=== PATIENT | male | born 1950 | race Caucasian/White ===

== ENCOUNTER 2016-04-22 08:16 | Inpatient (IN) | payer OTHER, MEDICARE ==
[2016-04-22] VITALS (15 sets, daily range): BP systolic 116–167; BP diastolic 76–92; PULSE 83–94; RESP 15–20; TEMP 97.6–98.4; O2SAT 94–96
[~2016-04-22] VITALS: Ht 167.6 cm; Wt 89.0 kg
[~2016-04-22 08:16] MED LIST: ACET300T2 PO; ASPI1TAB69 PO; ATOR40TA16 PO; CARV6.25 PO; CEPH-460 PO; D31000TA PO; FLUT1SPR5 EACH NARE; FURO1TAB62 PO; INSU1INJ14 SQ; IPRAAER INH; LISI2.5T3 PO; NITR1SUB3 SL; ZADITOR EACH EYE; ZOLO50TA PO
--- NOTE | 2016-04-22 08:28 | PD ---
HPI Chief Complaint: Chest Pain Time Seen by Provider: 08:20 Travel History International Travel<30 days: No Contact w/Intl Traveler<30days: No Traveled to known affect area: No History of Present Illness HPI 65-year-old male with history of CHF, cardiomyopathy, EF of 20% on all medical treatment, CAD, CABG, recent removal of defibrillator with placement of a biventricular pacer defibrillator last month by Dr. Davenport, presents for evaluation of chest pain, nausea, vomiting, and diarrhea. Patient reports that vomiting and diarrhea started yesterday. Emesis is clear. Diarrhea is watery/ brown. Both are nonbloody. Apparently he was seen by Dr. Davenport yesterday who told him that his pacemaker had fired about 10 days prior and advised that he present to the emergency department at that time. The patient decided to wait until this morning to come in to the emergency department. On the way here he began to experience substernal chest discomfort which she describes as pressure. Pain is 5 out of 10, constant. No dyspnea. PFSH Past Medical History Hx Anticoagulant Therapy: Yes Arthritis: No Asthma: Yes Autoimmune Disease: No Blood Disorders: No Anxiety: Yes Depression: Yes Heart Rhythm Problems: Yes Cancer: No Cardiac Catheterization: Yes Cardiovascular Problems: Yes (stents, CABGx3, ICD) High Cholesterol: Yes Chemotherapy: No Chest Pain: Yes Congestive Heart Failure: Yes Cirrhosis: Yes COPD: Yes Cerebrovascular Accident: No Diabetes: Yes (type II) Diminished Hearing: No Endocrine: Yes Gastrointestinal Disorders: Yes (ASCITES) GERD: No Glaucoma: No Genitourinary: No Hepatitis: No Hiatal Hernia: No Hypertension: Yes Immune Disorder: No Implanted Vascular Access Dvce: Yes Kidney Stones: No Musculoskeletal: No Neurologic: Yes (tremors) Psychiatric: No Reproductive: No Respiratory: Yes Integumentary: No Migraines: No Radiation Therapy: No Renal Failure: No Seizures: No Sickle Cell Disease: No Sleep Apnea: Yes Thyroid Disease: No Ulcer: No Past Surgical History Abdominal Surgery: Yes (hernia repair) AICD: Yes Arteriovenous Shunt: No Body Medical Devices: STENTS TAYA LEGS [employer] HEART, DEFIBRILLATOR Cardiac Surgery: Yes (CABG x3) Coronary Artery Bypass Graft: Yes (TRIPLE) Coronary Stent: Yes (X1) Ear Surgery: No Endocrine Surgery: No Eye Surgery: No Genitourinary Surgery: No Gynecologic Surgery: No Insulin Pump: No Joint Replacement: No Oral Surgery: No Pacemaker: Yes Thoracic Surgery: Yes (CABG x3) Other Surgery: Yes (CABG, TAYA L.E. STENTS, AICD) Social History Alcohol Use: Yes Tobacco Use: No Substance Use: No Allergies-Medications (Allergen,Severity, Reaction): Coded Allergies: No Known Allergies (Unverified , 04/22/16) Reported Meds & Prescriptions Reported Meds & Active Scripts Active Keflex (Cephalexin) 500 Mg Cap 500 Mg PO TID Acetaminophen-Codeine 300-30 mg Tab 2 Tab PO Q4H PRN Lasix (Furosemide) 20 Mg Tab 20 Mg PO DAILY Coreg (Carvedilol) 6.25 Mg Tab 6.25 Mg PO Q12HR 30 Days Reported [Zaditor] 0.025 Drop EACH EYE DAILY Atorvastatin (Atorvastatin Calcium) 40 Mg Tab 40 Mg PO DAILY D3 (Cholecalciferol) 1,000 Unit Tab 1,000 Units PO DAILY Flonase Allergy Relief Nasal [place] (Fluticasone Nasal [place]) 50 Mcg/Act [place] 1 [place] EACH NARE DAILY Lisinopril 2.5 Mg Tab 2.5 Mg PO DAILY Zoloft (Sertraline HCl) 50 Mg Tab 50 Mg PO DAILY Nitroglycerin SL (Nitroglycerin) 0.4 Mg Subl 0.4 Mg SL DIRECTED PRN ONE TABLET UNDER THE TONGUE NEEDED FOR CHEST PAIN, MAY REPEAT EVERY FIVE MINUTES FOR A TOTAL OF 3 DOSES OR CALL 911 IF NO RELIEF Aspirin 81 Mg Tabdr 81 Mg PO DAILY Combivent Respimat Inh (Ipratropium-Albuterol Inh) 20-100 [facility]/Act Aero 2 Puff INH BID Tresiba Flextouch Pen Inj (Insulin Degludec Inj) 300 unit/3 ML Pen 80 Units SQ DAILY Review of Systems Except as stated in HPI: all other systems reviewed are Neg Physical Exam Narrative GENERAL: Pleasant, well-developed, well-nourished, comfortable, no acute distress. SKIN: Warm and dry. Midline vertical/central anterior chest wall surgical incision that is well-healed. There are 2 horizontal incisions in the left upper chest that are well healed, no signs of infection. HEAD: Atraumatic. Normocephalic. EYES: Pupils equal and round. No scleral icterus. No injection or drainage. ENT: Mucous membranes pink and moist. NECK: Trachea midline. No JVD. CARDIOVASCULAR: Regular rate and rhythm. No murmur appreciated. RESPIRATORY: No accessory muscle use. Clear to auscultation. Breath sounds equal bilaterally. GASTROINTESTINAL: Abdomen soft, non-tender, nondistended. MUSCULOSKELETAL: No obvious deformities. No clubbing. No cyanosis. No edema. NEUROLOGICAL: Awake and alert. No obvious cranial nerve deficits. Motor grossly within normal limits. Normal speech. PSYCHIATRIC: Appropriate mood and affect; insight and judgment normal. Data Data Last Documented VS Vital Signs Date Time Temp Pulse Resp B/P Pulse Ox O2 Delivery O2 Flow Rate FiO2 04/22/16 08:29 94 Nasal Cannula 2 04/22/16 08:17 98.4 93 19 167/81 Orders Electrocardiogram (04/22/16 ) Complete Blood Count With Diff (04/22/16 08:25) Comprehensive Metabolic Panel (04/22/16 08:25) B-Type Natriuretic Peptide (04/22/16 08:25) Act Partial Throm Time (Ptt) (04/22/16 08:25) Prothrombin Time / Inr (Pt) (04/22/16 08:25) Ckmb (Isoenzyme) Profile (04/22/16 08:25) Troponin I (04/22/16 08:25) Influenzae A/B Antigen (04/22/16 08:25) Iv Access Insert/Monitor (04/22/16 08:25) Ecg Monitoring (04/22/16 08:25) Oximetry (04/22/16 08:25) Oxygen Administration (04/22/16 08:25) Chest, Single Ap (04/22/16 08:25) Sodium Chloride 0.9% Flush (Ns Flush) (04/22/16 08:30) Ondansetron Inj (Zofran Inj) (04/22/16 08:30) Magnesium (Mg) (04/22/16 08:28) Aspirin Chew (Aspirin Chew) (04/22/16 08:30) CKMB (04/22/16 08:45) CKMB% (04/22/16 08:45) Sodium Chlor 0.9% 1000 Ml Inj (Ns 1000 M (04/22/16 09:56) Labs Laboratory Tests Test 04/22/16 08:45 White Blood Count 14.3 TH/MM3 Red Blood Count 4.99 MIL/MM3 Hemoglobin 15.7 GM/DL Hematocrit 47.2 % Mean Corpuscular Volume 94.7 FL Mean Corpuscular Hemoglobin 31.4 PG Mean Corpuscular Hemoglobin 33.2 % Concent Red Cell Distribution Width 14.3 % Platelet Count 185 TH/MM3 Mean Platelet Volume 9.0 FL Neutrophils (%) (Auto) 78.2 % Lymphocytes (%) (Auto) 8.1 % Monocytes (%) (Auto) 11.4 % Eosinophils (%) (Auto) 0.8 % Basophils (%) (Auto) 1.5 % Neutrophils # (Auto) 11.2 TH/MM3 Lymphocytes # (Auto) 1.2 TH/MM3 Monocytes # (Auto) 1.6 TH/MM3 Eosinophils # (Auto) 0.1 TH/MM3 Basophils # (Auto) 0.2 TH/MM3 CBC Comment DIFF FINAL Differential Comment Prothrombin Time 12.3 SEC Prothromb Time International 1.1 RATIO Ratio Activated Partial 29.5 SEC Thromboplast Time Sodium Level 120 MEQ/L Potassium Level 5.5 MEQ/L Chloride Level 84 MEQ/L Carbon Dioxide Level 21.7 MEQ/L Anion Gap 14 MEQ/L Blood Urea Nitrogen 29 MG/DL Creatinine 1.57 MG/DL Estimat Glomerular Filtration 45 ML/MIN Rate Random Glucose 213 MG/DL Calcium Level 8.6 MG/DL Magnesium Level 1.8 MG/DL Total Bilirubin 1.4 MG/DL Aspartate Amino Transf 55 U/L (AST/SGOT) Alanine Aminotransferase 70 U/L (ALT/SGPT) Alkaline Phosphatase 77 U/L Total Creatine Kinase 169 U/L Creatine Kinase MB 4.3 NG/ML Troponin I 0.03 NG/ML B-Type Natriuretic Peptide 116 PG/ML Total Protein 8.5 GM/DL Albumin 3.7 GM/DL [facility] Medical Decision Making Medical Screen Exam Complete: Yes Emergency Medical Condition: Yes Medical Record Reviewed: Yes Interpretation(s) EKG: Ventricular paced at a rate of 91. Differential Diagnosis ACS, pneumothorax, pericarditis, PE, pneumonia, gastroenteritis, dehydration, electrolyte abnormality Narrative Course Vital signs show heart rate 94, blood pressure 167/81, pulse ox 94% on room air , oral temp of 98.4F. CBC shows WBC 14.3, hemoglobin 15.7, hematocrit 47.2, platelets 185, neutrophils 78%. CMP shows sodium 120, chloride 84, BUN 29, creatinine 1.57 Troponin is 0.03. BNP is 116. Influenza is negative. Chest x-ray shows no acute disease. No significant change has occurred. Patient was made aware of all findings. He is resting comfortably. He'll be admitted for further treatment and evaluation of chest pain, hyponatremia. Case discussed with Hepas physician Dr. Baker. The patient will be admitted to his service to the [facility]. Diagnosis Primary Impression: Chest pain Qualified Code: R07.9 - Chest pain, unspecified type Additional Impressions: Hyponatremia Gastroenteritis Vinicio Snider MD Apr 22, 2016 08:28
[2016-04-22] MEDS ORDERED: ASPIRIN 81 MG CHEW TAB PO ONE (08:30)
[2016-04-22] MEDS ORDERED: SODIUM CHLORIDE 0.9% FLUSH 5 ML FLUSH IVF PRN (08:30)
[2016-04-22] MEDS ORDERED: ONDANSETRON HCL 4 MG/2 ML VIAL IV PUSH ONE (08:30)
[2016-04-22 09:03] LABS: AUTOMATED NEUTROPHIL # 11.2 TH/MM3 (1.8-7.7); BASOPHIL # 0.2 TH/MM3 (0-0.2); BASOPHIL % 1.5 % (0.0-2.0); EOSINOPHIL # 0.1 TH/MM3 (0-0.4); EOSINOPHIL % 0.8 % (0.0-4.0); HEMATOCRIT 47.2 % (39.0-51.0); HEMO FLAGS DIFF FINAL; LYMPH % 8.1 % (9.0-44.0); LYMPHOCYTE # 1.2 TH/MM3 (1.0-4.8); MEAN CELL VOLUME 94.7 FL (80.0-100.0); MEAN CORPUSCULAR HEMOGLOBIN 31.4 PG (27.0-34.0); MEAN CORPUSCULAR HGB CONC 33.2 % (32.0-36.0); MONO % 11.4 % (0.0-8.0); NEUT % 78.2 % (16.0-70.0); PLATELET COUNT 185 TH/MM3 (150-450); RED BLOOD COUNT 4.99 MIL/MM3 (4.50-5.90); RED CELL DISTRIBUTION WIDTH 14.3 % (11.6-17.2); WHITE BLOOD COUNT 14.3 TH/MM3 (4.0-11.0)
[2016-04-22 09:13] LABS: APTT (PATIENT) 29.5 SEC (24.3-30.1); INTERNATIONAL NORMALIZED RATIO 1.1 RATIO; PROTHROMBIN TIME - PATIENT 12.3 SEC (9.8-11.6)
--- NOTE | 2016-04-22 09:19 | RADRPT ---
EXAM DATE/TIME: 04/22/2016 08:59 [facility] COMPARISON: CHEST SINGLE AP, March 26, 2016, 11:06. INDICATIONS : Chest pain. MEDICAL HISTORY : Hypertension. Diabetes mellitus type II. Chronic obstructive pulmonary disease. Congestive heart failure SURGICAL HISTORY : Pacemaker. CABG. ENCOUNTER: Initial ACUITY: 2 days PAIN SCORE: 6/10 LOCATION: Left upper chest FINDINGS: A single view of the chest demonstrates the lungs to be symmetrically aerated without evidence of mas s, infiltrate or effusion. The cardiomediastinal contours again reveal borderline cardiomegaly with evidence of prior median sternotomy cardiac surgery and there is a pacemaker AICD device overlying th e left hemithorax.. Osseous structures are intact. CONCLUSION: No acute disease. No significant change has occurred. Keegan Hills MD on April 22, 2016 at 9:16 Board Certified Radiologist. This report was verified electronically.
[2016-04-22 09:49] LABS: ALKALINE PHOSPHATASE 77 U/L (45-117); ALT (GPT) 70 U/L (12-78); ANION GAP 14 MEQ/L (5-15); AST (GOT) 55 U/L (15-37); BICARBONATE 21.7 MEQ/L (21.0-32.0); BLOOD UREA NITROGEN 29 MG/DL (7-18); CHLORIDE 84 MEQ/L (98-107); CREATINE KINASE 169 U/L (39-308); GLOMERULAR FILTRATION RATE 45 ML/MIN (>89); POTASSIUM 5.5 MEQ/L (3.5-5.1); TOTAL BILIRUBIN ADULT 1.4 MG/DL (0.2-1.0)
[2016-04-22 09:55] LABS: SODIUM (NA) 120 MEQ/L (136-145)
[2016-04-22] MEDS ORDERED: SODIUM CHLOR 0.9% 1000 ML INJ 1,000 ML IV SCH (09:56)
[2016-04-22 10:11] LABS: CKMB 4.3 NG/ML (0.5-3.6)
[2016-04-22] MEDS ORDERED: GLUCAGON 1 MG/ML VIAL OTHER PRN (11:00)
[2016-04-22] MEDS ORDERED: HEPARIN SODIUM - SQ 10,000 UNITS/ML VIAL SQ SCH (11:00)
[2016-04-22] MEDS ORDERED: SODIUM CHLORIDE 0.9% FLUSH 5 ML FLUSH IV PRN (11:00)
[2016-04-22] MEDS ORDERED: NITROGLYCERIN 0.4 MG SL 25 TABS/BTL SL PRN (11:00)
[2016-04-22] MEDS ORDERED: DEXTROSE 50% IN WATER 50 ML VIAL(D50) IV PUSH PRN (11:00)
[2016-04-22] MEDS ORDERED: hydrALAZINE HCL 20 MG/ML VIAL IV PUSH PRN (11:00)
[2016-04-22] MEDS ORDERED: MORPHINE SULFATE 8 MG/ML INJ IV PUSH PRN (11:00)
[2016-04-22] MEDS ORDERED: cloNIDine HCL 0.1 MG TAB PO PRN (11:00)
--- NOTE | 2016-04-22 11:01 | HHI.HP ---
[facility] Primary Care Physician Venice Mota MD Admission Diagnosis chest pain, hyponatremia, gastroenteritis Diagnoses: Chief Complaint: Nausea vomiting diarrhea Travel History International Travel<30 Days: No Contact w/Intl Traveler <30 Da: No Traveled to Known Affected Are: No History of Present Illness 65 years old male with history of hepatitis CHF EF 20% on medical treatment, history of coronary artery disease and CABG with recent removal of defibrillator replaced with biventricular pacer and defibrillator last month by Dr. Miller, patient came to the ED complaining of 3 days history of worsening nausea vomiting and diarrhea, patient had last night 6 episode of bowel movement which is loose no hematochezia or hematemesis, to me patient denied chest pain short of breath headache fever chills cough or blurry vision. However on the way to the hospital there was a mentioning of some chest discomfort described as a pressure 5 out of 10 constant. Patient was told by Dr. Miller that his defibrillator fired up 10 days ago and he was told to go to the hospital. In ED patient was found to have a sodium of 20, potassium of 5.5 and worsening kidney function was due to dehydration Review of Systems Other All 10 systems reviewed and was positive for what is mentioned in history of present illness otherwise negative Past Family Social History Past Medical History Hernia artery disease status post CABG Anxiety Depression Hyperlipidemia CHF EF 20% Liver cirrhosis COPD Diabetes mellitus type 2 History of ascites Sleep apnea Past Surgical History Stenting bilateral leg Biventricular heart pacer defibrillator CABG 3 Allergies: Coded Allergies: No Known Allergies (Unverified , 04/22/16) Family History Father brother and sister had CHF Social History No tobacco use Drinks couple beers daily alcohol No other significant use Physical Exam Vital Signs Vital Signs Date Time Temp Pulse Resp B/P Pulse Ox O2 Delivery O2 Flow Rate FiO2 04/22/16 10:00 83 16 140/90 95 Nasal Cannula 2 04/22/16 09:00 145/76 95 Nasal Cannula 2 04/22/16 08:29 94 Nasal Cannula 2 04/22/16 08:17 98.4 93 19 167/81 04/22/16 08:17 19 94 Room Air 04/22/16 08:17 98.4 94 19 167/81 94 Room Air Physical Exam GENERAL: This is a well-nourished, well-developed patient, in no apparent distress. SKIN: No rashes, warm and dry HEAD: Atraumatic. Normocephalic. EYES: Pupils equal round and reactive. Extraocular motions intact. No scleral icterus. ENT: Nose without bleeding, or drainage, Airway patent. NECK: Trachea midline. Supple CARDIOVASCULAR: Regular rate and rhythm without murmurs, gallops, or rubs. RESPIRATORY: Fair air entry bilaterally. No wheezes, rales, or rhonchi. GASTROINTESTINAL: Abdomen soft, non-tender, nondistended. Positive bowel sounds MUSCULOSKELETAL: Extremities without clubbing, cyanosis, or edema. Pedal pulses appreciated NEUROLOGICAL: Awake and alert. Moves all extremity. Normal speech.no focal neurological deficit Laboratory Laboratory Tests Test 04/22/16 08:45 White Blood Count 14.3 Red Blood Count 4.99 Hemoglobin 15.7 Hematocrit 47.2 Mean Corpuscular Volume 94.7 Mean Corpuscular Hemoglobin 31.4 Mean Corpuscular Hemoglobin 33.2 Concent Red Cell Distribution Width 14.3 Platelet Count 185 Mean Platelet Volume 9.0 Neutrophils (%) (Auto) 78.2 Lymphocytes (%) (Auto) 8.1 Monocytes (%) (Auto) 11.4 Eosinophils (%) (Auto) 0.8 Basophils (%) (Auto) 1.5 Neutrophils # (Auto) 11.2 Lymphocytes # (Auto) 1.2 Monocytes # (Auto) 1.6 Eosinophils # (Auto) 0.1 Basophils # (Auto) 0.2 CBC Comment DIFF FINAL Differential Comment Prothrombin Time 12.3 Prothromb Time International 1.1 Ratio Activated Partial 29.5 Thromboplast Time Sodium Level 120 Potassium Level 5.5 Chloride Level 84 Carbon Dioxide Level 21.7 Anion Gap 14 Blood Urea Nitrogen 29 Creatinine 1.57 Estimat Glomerular Filtration 45 Rate Random Glucose 213 Calcium Level 8.6 Magnesium Level 1.8 Total Bilirubin 1.4 Aspartate Amino Transf 55 (AST/SGOT) Alanine Aminotransferase 70 (ALT/SGPT) Alkaline Phosphatase 77 Total Creatine Kinase 169 Creatine Kinase MB 4.3 Troponin I 0.03 B-Type Natriuretic Peptide 116 Total Protein 8.5 Albumin 3.7 Date/Time Procedure Status Source Growth 04/22/16 08:50 Influenza Types A,B Antigen (MANUEL) - Final Complete Nasal Washing NEGATIVE FOR FLU A AND B ANTIGEN.... Result Diagram: 04/22/1645 04/22/16844 Assessment and Plan Assessment and Plan 65 years old male with history of advanced CHF EF 20%, coronary artery disease status post CABG, diabetes mellitus, hypertension hyperlipidemia, came with chest pain, nausea vomiting and diarrhea, hyponatremia Severe hyponatremia sodium 120 possibly due to dehydration Hypokalemia 5.5 Nausea vomiting diarrhea, rule out gastroenteritis MAYELA mostly prerenal due to dehydration Chest pain rule out ACS History of CHF with EF 20% status post pacemaker defibrillator insertion recently by Dr. Sorto with history of fired defibrillator 10 days ago Hypertension uncontrolled Diabetes mellitus Hyperlipidemia History of liver cirrhosis History of ascites Alcohol abuse DVT prophylaxis Plan: Admit to inpatient CIC or IMC Stat urine and serum osmolality Patient started on iv fluid in a.m. we'll continue Check BMP at 1800, monitor sodium closely, nurses address to call if sodium about 125, no more than 8-10 mmol correction over 24 hours BMP reviewed 116 First set of cardiac enzymes negative, continue for 2 more sets Monitor telemetry Hold lisinopril due to hyponatremia and hyperkalemia and MAYELA Continue Coreg patient is initially on it Continue aspirin Clonidine and hydralazine as needed to control blood pressure Accu-Chek, ISS, diabetic healthy heart diet, diabetic education, CIWA protocol Physician Certification 2 Midnight Certification Type: Admission for Inpatient Services Order for Inpatient Services The services are ordered in accordance with Medicare regulations or non- Medicare payer requirements, as applicable. In the case of services not specified as inpatient-only, they are appropriately provided as inpatient services in accordance with the 2-midnight benchmark. Estimated LOS (days): 2 days is the estimated time the patient will need to remain in the hospital, assuming treatment plan goals are met and no additional complications. Post-Hospital Plan: Not yet determined Long Baker MD Apr 22, 2016 11:01
[2016-04-22] MEDS: INSULIN NovoLIN REGULAR SUPPLEMENTAL SCALE SQ SCH ×3 (11:51→20:30)
--- NOTE | 2016-04-22 15:01 | EKG ---
Date Performed: 04/22/2016 Time Performed: 08:21:21 PTAGE: 65 years EKG: ELECTRONIC VENTRICULAR PACEMAKER ABNORMAL RHYTHM ECG NO SIGNIFICANT CHANGE FROM PRIOR ELECT ROCARDIOGRAM. PREVIOUS TRACING : 03/27/2016 03.42 DOCTOR: Melvin Muhammad Interpretating Date/Time 04/22/2016 14:59:36
[2016-04-22] MEDS ORDERED: FLUMAZENIL 0.5 MG/5 ML VIAL IV PUSH PRN (15:30)
[2016-04-22] MEDS ORDERED: LORazepam 1 MG TAB PO PRN (15:30)
[2016-04-22] MEDS ORDERED: LORazepam 2 MG/ML VIAL IV PUSH PRN ×4 (15:30)
[2016-04-22] MEDS ORDERED: LORazepam 2 MG TAB PO PRN (15:30)
[2016-04-22] MEDS: ONDANSETRON HCL 4 MG/2 ML VIAL IV PUSH PRN (16:10)
[2016-04-22] MEDS: THIAMINE HCL 100 MG TAB PO SCH (16:37)
[2016-04-22 18:25] LABS: BICARBONATE 24.9 MEQ/L (21.0-32.0); MAGNESIUM 1.8 MG/DL (1.5-2.5); POTASSIUM 5.4 MEQ/L (3.5-5.1)
[2016-04-22] MEDS ORDERED: PROCHLORPERAZINE INJ 10 MG/2 ML VIAL IVS PRN (19:00)
[2016-04-22] MEDS: HEPARIN SODIUM - SQ 10,000 UNITS/ML VIAL SQ SCH (20:29)
[2016-04-22] MEDS: CARVEDILOL 6.25 MG TAB PO SCH (20:29)
[2016-04-22] MEDS: SODIUM CHLORIDE 0.9% FLUSH 5 ML FLUSH IV SCH (20:30)
[2016-04-22 23:04] LABS: BACTERIA, URINE RARE /hpf; BLOOD, URINE NEG (NEG); GLUCOSE,URINE NEG (NEG); KETONE, URINE 10 mg/dL (NEG); MUCUS URINE FEW /lpf (OCC); NITRITE,URINE NEG (NEG); RENAL EPITHELIAL CELLS <1 /hpf; SQUAMOUS EPITHELIAL CELL URINE <1 /hpf (0-5); URINE COLOR YELLOW (YELLW/STRAW)
[2016-04-22 23:05] LABS: COMMENT (UR) CULT NOT INDICATED; CULTURE IF INDICATED CULT NOT INDICATED
[2016-04-23] VITALS (23 sets, daily range): BP systolic 92–165; BP diastolic 53–95; PULSE 76–98; RESP 18–20; TEMP 97.9–98.7; O2SAT 92–97
[2016-04-23] MEDS: ONDANSETRON HCL 4 MG/2 ML VIAL IV PUSH PRN ×3 (00:07→12:30)
[2016-04-23] MEDS: MORPHINE SULFATE 4 MG/ML INJ IV PUSH PRN ×3 (00:08→12:38)
[2016-04-23] MEDS: INSULIN NovoLIN REGULAR SUPPLEMENTAL SCALE SQ SCH ×4 (06:44→20:56)
[2016-04-23 06:59] LABS: AUTOMATED NEUTROPHIL # 13.6 TH/MM3 (1.8-7.7); BASOPHIL % 0.2 % (0.0-2.0); EOSINOPHIL % 0.1 % (0.0-4.0); HEMATOCRIT 44.6 % (39.0-51.0); HEMO FLAGS DIFF FINAL; LYMPHOCYTE # 0.8 TH/MM3 (1.0-4.8); MEAN CELL VOLUME 95.5 FL (80.0-100.0); MEAN CORPUSCULAR HEMOGLOBIN 31.3 PG (27.0-34.0); MEAN CORPUSCULAR HGB CONC 32.8 % (32.0-36.0); MONO % 9.8 % (0.0-8.0); NEUT % 84.9 % (16.0-70.0); PLATELET COUNT 174 TH/MM3 (150-450); RED BLOOD COUNT 4.67 MIL/MM3 (4.50-5.90); RED CELL DISTRIBUTION WIDTH 14.4 % (11.6-17.2); WHITE BLOOD COUNT 16.1 TH/MM3 (4.0-11.0)
[2016-04-23] MEDS: THIAMINE HCL 100 MG TAB PO SCH (08:38)
[2016-04-23] MEDS: CARVEDILOL 6.25 MG TAB PO SCH ×3 (08:39→21:00)
[2016-04-23] MEDS: HEPARIN SODIUM - SQ 10,000 UNITS/ML VIAL SQ SCH ×2 (08:39→20:57)
[2016-04-23] MEDS: SERTRALINE HCL 50 MG TAB PO SCH (08:39)
[2016-04-23] MEDS: PANTOPRAZOLE SOD 40 MG DELAYED RELEASE TAB PO SCH (08:39)
[2016-04-23] MEDS: ASPIRIN EC 81 MG TABEC PO SCH (08:39)
[2016-04-23] MEDS: ATORVASTATIN 40 MG TAB PO SCH (08:39)
[2016-04-23 08:51] LABS: BICARBONATE 22.3 MEQ/L (21.0-32.0); HDL CHOLESTEROL 43.4 MG/DL (40.0-60.0); POTASSIUM 5.8 MEQ/L (3.5-5.1)
[2016-04-23] MEDS ORDERED: INSULIN DEGLUDEC SQ SCH (09:00)
[2016-04-23] MEDS ORDERED: ZADITOR EACH EYE SCH (09:00)
[2016-04-23] MEDS ORDERED: METOCLOPRAMIDE HCL 10 MG/2 ML VIAL IM PRN (09:15)
--- NOTE | 2016-04-23 09:17 | HHI.PR ---
Subjective Remarks Follow up for AICD firing, nausea, vomiting. Mr. Sutherland is having a lot of nausea , vomiting. Denies any chest pain, SOB or fever, chills. He does report abdominal pain as well. Objective Vitals Vital Signs Date Time Temp Pulse Resp B/P Pulse Ox O2 Delivery O2 Flow Rate FiO2 04/23/16 06:49 20 04/23/16 06:00 86 04/23/16 05:00 88 04/23/16 04:00 98.2 88 18 143/92 97 04/23/16 04:00 Nasal Cannula 2.00 04/23/16 04:00 86 04/23/16 03:00 85 04/23/16 02:00 85 04/23/16 01:00 88 04/23/16 00:48 108/78 04/23/16 00:00 88 04/23/16 00:00 Nasal Cannula 2.00 04/23/16 00:00 98.4 98 18 165/95 96 04/22/16 23:00 87 04/22/16 22:00 90 04/22/16 21:00 91 04/22/16 20:00 97.8 88 18 116/82 96 04/22/16 20:00 87 04/22/16 20:00 Nasal Cannula 2.00 04/22/16 19:00 86 04/22/16 18:00 88 04/22/16 16:00 98.3 88 20 137/90 96 04/22/16 16:00 85 04/22/16 15:23 94 Nasal Cannula 1.00 04/22/16 15:00 84 04/22/16 14:00 89 04/22/16 12:30 96 Nasal Cannula 2.00 04/22/16 12:30 94 04/22/16 12:30 97.6 94 20 140/92 96 04/22/16 11:00 87 15 133/77 95 Nasal Cannula 2 04/22/16 10:00 83 16 140/90 95 Nasal Cannula 2 I/O 04/22/16 04/22/16 04/22/16 04/23/16 04/23/16 04/23/16 07:00 15:00 23:00 07:00 15:00 23:00 Intake Total 300 ml 2367 ml Output Total 575 ml 500 ml Balance -275 ml 1867 ml Intake Oral 50 ml 240 ml IV Total 250 ml 2127 ml Output Urine Total 425 ml 350 ml Emesis 150 ml 150 ml # Voids 1 Result Diagram: 04/23/16 0622 04/23/16 0622 Imaging Last Impressions Abdomen X-Ray 04/23/16 0000 Signed Impressions: Service Date/Time: March 09:38 - CONCLUSION: No evidence of bowel obstruction. Exam consistent with free fluid in the abdomen or pelvis.. Jennie Arthur MD Chest X-Ray 04/22/16 0825 Signed Impressions: Service Date/Time: Friday, April 22, 2016 08:59 - CONCLUSION: No acute disease. No significant change has occurred. Keegan Hills MD Objective Remarks GENERAL: AOX3, In Mild distress due to vomiting. SKIN: Warm and dry. HEAD: Normocephalic. EYES: No scleral icterus. No injection or drainage. NECK: Supple, trachea midline. No JVD or lymphadenopathy. CARDIOVASCULAR: Regular rate and rhythm without murmurs, gallops, or rubs. RESPIRATORY: Breath sounds equal bilaterally. No accessory muscle use. GASTROINTESTINAL: Abdomen firm, distended, painful on palpation. MUSCULOSKELETAL: No cyanosis, or edema. BACK: Nontender without obvious deformity. No CVA tenderness. Procedures None. A/P Assessment and Plan Mr. Sutherland is a pleasant 65 year old male with a history of cardiomyopathy with LVEF 20%, recently placed cardiac re-synchronization therapy (Dr. Davenport) who came to the ED with 3 day duration of nausea, vomiting, diarrhea. His defibrillator fired twice in the last ten days. Dr. Davenport advised patient to come to the hospital. - Probable gastroenteritis. - Liver cirrhosis. - Continue IV fluid NS 125cc/hour. - Zofran, Compazine PRN for nausea. - KUB obtained today shows no obstruction but shows fluid. - Abdomen, liver US pending. If ascites is significant, we will obtain a paracentesis. - Hyponatremia - Hyperkalemia - Acute kidney injury - Electrolyte abnormalities are likely due to Gastroenteritis. - MAYELA likely due to hypovolemia - Will give Kayexalate, D50, Insulin and Lasix 20mg IV one time. - Recheck BMP - Cardiomyopathy - Currently have CONTINUOUS ABSORPTION PROCESS OPERATOR device. Dr. Davenport follows in the outpatient setting. - Will consult Dr. Davenport regarding device firing twice in the last ten days. - Continue Aspirin, BB, Lipitor - Diabetes mellitus - Start Levemir 10 units QHS. - Continue sliding scale insulin Full code. Heparin SQ. Olga Arrieta DO Apr 23, 2016 09:17
[2016-04-23] MEDS: SODIUM CHLORIDE 0.9% FLUSH 5 ML FLUSH IV SCH ×2 (12:30→20:55)
--- NOTE | 2016-04-23 13:17 | RADRPT ---
EXAM DATE/TIME: 04/23/2016 09:38 [facility] COMPARISON: CT ABDOMEN & PELVIS W CONTRAST, April 10, 2015, 21:24. INDICATIONS : Abdominal pain and distention. MEDICAL HISTORY : Hypertension. Diabetes mellitus type II. Chronic obstructive pulmonary disease. Congestive heart failure. SURGICAL HISTORY : Pacemaker. CABG. ENCOUNTER: Initial ACUITY: 1 day PAIN SCORE: 6/10 LOCATION: Bilateral upper quadrant abdomen FINDINGS: Supine view of the abdomen was performed. There is a large air-filled stomach present. Paucity of bow el gas with bowel loops centered in the midline abdomen consistent with free fluid. Otherwise unremar kable exam. CONCLUSION: No evidence of bowel obstruction. Exam consistent with free fluid in the abdomen or pelvis.. Jennie Arthur MD on April 23, 2016 at 13:14 Board Certified Radiologist. This report was verified electronically.
[2016-04-23] MEDS ORDERED: FUROSEMIDE 20 MG/2 ML VIAL IV ONE (17:30)
[2016-04-23] MEDS ORDERED: INSULIN HUMAN REGULAR 1,000 UNITS/10 ML VIAL IV PUSH ONE (17:30)
[2016-04-23] MEDS ORDERED: PROMETHAZINE INJ 25 MG/ML VIAL IM PRN (17:30)
[2016-04-23] MEDS ORDERED: DEXTROSE 50% IN WATER 50 ML VIAL(D50) IV PUSH ONE (17:30)
[2016-04-23] MEDS: SODIUM POLYSTYRENE SULFONATE SUSP 15 GM/60 ML CUP PO SCH ×2 (18:17→20:56)
[2016-04-23] MEDS: INSULIN DETEMIR 100 UNITS/ML VIAL SQ SCH (20:57)
--- NOTE | 2016-04-23 22:28 | RADRPT ---
EXAM DATE/TIME: 04/23/2016 17:38 [facility] COMPARISON: No previous studies available for comparison. INDICATIONS : Cirrhosis. MEDICAL HISTORY : Hypercholesterolemia. Myocardial infarction. Chronic obstructive pulmonary disease. Orthostatic hypot ension. Syncope. CHF. Hypertension. Pneumonia. Tuberculosis. Diabetes. Cirrhosis. Measles. SURGICAL HISTORY : CABG. Coronary artery stent. Pacemaker. Hernia repair. AICD. Cardiac cath. ENCOUNTER: Initial ACUITY: 1 day PAIN SCORE: 0/10 LOCATION: Bilateral upper quadrant MEASUREMENTS: LIVER: 17.4 cm length COMMON DUCT: 7 mm RIGHT KIDNEY: 10.8 x5.5 x 5.7 cm SPLEEN: 12.6 cm length FINDINGS: LIVER: Diffusely increased echogenicity potentially steatosis. No focal mass or biliary ductal dilatation. COMMON DUCT: No intraluminal mass or stone visualized. GALLBLADDER: Contains sludge. No multiple stones. No wall thickening or pericholecystic fluid. PANCREAS: The visualized portions are within normal limits. RIGHT KIDNEY: No hydronephrosis, stone or mass. SPLEEN: Scattered echogenic foci consistent with granulomata CONCLUSION: Echogenic liver. Gallbladder sludge. Splenic granulomas. Shawn Hopper MD on April 23, 2016 at 22:25 Board Certified Radiologist. This report was verified electronically.
[2016-04-23 23:29] LABS: BICARBONATE 23.2 MEQ/L (21.0-32.0); POTASSIUM 5.2 MEQ/L (3.5-5.1)
[2016-04-24] VITALS (26 sets, daily range): BP systolic 90–116; BP diastolic 50–76; PULSE 61–91; RESP 18–20; TEMP 97.9–98.9; O2SAT 96–98
[2016-04-24] MEDS: INSULIN NovoLIN REGULAR SUPPLEMENTAL SCALE SQ SCH ×4 (05:32→20:52)
--- NOTE | 2016-04-24 08:15 | HHI.PR ---
Subjective Remarks Follow up for Gastroenteritis, MAYELA, AICD firing. Patient is doing much better today. N/V resolved. No fever, chills. Feels like his abdomen is distended. Objective Vitals Vital Signs Date Time Temp Pulse Resp B/P Pulse Ox O2 Delivery O2 Flow Rate FiO2 04/24/16 06:00 83 04/24/16 05:00 74 04/24/16 04:00 77 04/24/16 04:00 98.7 91 18 100/50 98 04/24/16 03:00 77 04/24/16 02:00 88 04/24/16 01:00 76 04/24/16 00:00 97.9 88 18 109/69 96 04/24/16 00:00 74 04/23/16 23:00 79 18 93/60 92 04/23/16 23:00 77 04/23/16 22:03 88 18 92/62 95 04/23/16 22:00 88 04/23/16 21:00 76 04/23/16 20:00 97.9 77 18 93/53 97 04/23/16 20:00 77 04/23/16 20:00 97 Nasal Cannula 2.00 04/23/16 19:00 80 04/23/16 17:27 97 Nasal Cannula 2.00 04/23/16 17:00 84 04/23/16 16:35 98.4 87 20 112/62 97 04/23/16 15:39 96 Nasal Cannula 2.00 04/23/16 15:00 81 04/23/16 13:00 81 04/23/16 12:00 98.7 80 20 110/71 96 04/23/16 11:00 82 04/23/16 09:00 92 I/O 04/23/16 04/23/16 04/23/16 04/24/16 04/24/16 04/24/16 07:00 15:00 23:00 07:00 15:00 23:00 Intake Total 2367 ml 220 ml 480 ml Output Total 500 ml 600 ml 800 ml 300 ml Balance 1867 ml -380 ml -800 ml 180 ml Intake Oral 240 ml 480 ml IV Total 2127 ml 220 ml Output Urine Total 350 ml 600 ml 800 ml 300 ml Emesis 150 ml # Voids 3 # Bowel Movements 3 Result Diagram: 04/23/1662104/23/162237 Imaging Last Impressions Abdomen Ultrasound 04/24/16 0000 Signed Impressions: Service Date/Time: Sunday, April 24, 2016 09:48 - CONCLUSION: No ascitic fluid observed. Gigi Farias Jr., MD Liver Ultrasound 04/23/16 0000 Signed Impressions: Service Date/Time: , April 23, 2016 17:38 - CONCLUSION: Echogenic liver. Gallbladder sludge. Splenic granulomas. Shawn Hopper MD Abdomen X-Ray 04/23/16 0000 Signed Impressions: Service Date/Time: , April 23, 2016 09:38 - CONCLUSION: No evidence of bowel obstruction. Exam consistent with free fluid in the abdomen or pelvis.. Jennie Arthru MD Chest X-Ray 04/22/16 0825 Signed Impressions: Service Date/Time: Friday, April 22, 2016 08:59 - CONCLUSION: No acute disease. No significant change has occurred. Keegan Hills MD Objective Remarks GENERAL: AOX3, In Mild distress due to vomiting. SKIN: Warm and dry. HEAD: Normocephalic. EYES: No scleral icterus. No injection or drainage. NECK: Supple, trachea midline. No JVD or lymphadenopathy. CARDIOVASCULAR: Regular rate and rhythm without murmurs, gallops, or rubs. RESPIRATORY: Breath sounds equal bilaterally. No accessory muscle use. GASTROINTESTINAL: Abdomen firm, distended, painful on palpation. MUSCULOSKELETAL: No cyanosis, or edema. BACK: Nontender without obvious deformity. No CVA tenderness. Procedures None. A/P Assessment and Plan Mr. Sutherland is a pleasant 65 year old male with a history of cardiomyopathy with LVEF 20%, recently placed cardiac re-synchronization therapy (Dr. Davenport) who came to the ED with 3 day duration of nausea, vomiting, diarrhea. His defibrillator fired twice in the last ten days. Dr. Davenport advised patient to come to the hospital. - Probable gastroenteritis. - Liver cirrhosis. - Continue IV fluid NS 125cc/hour. - Zofran, Compazine PRN for nausea. - KUB obtained today shows no obstruction but shows fluid. - Echogenicity noted on Liver US. No ascites noted on Abd US. - Hyponatremia - Hyperkalemia - Acute kidney injury - Creatinine 1.7 yesterday. Will re-check BMP today. - Na improved 124 --> 128. K+ improved 5.8 --> 5.4 --> 4.3. - Cardiomyopathy - Currently have NEWSPAPER PHOTO EDITOR device. Dr. Davenport follows in the outpatient setting. - Will consult Dr. Davenport regarding device firing twice in the last ten days. - Continue aspirin 81 mg, Lipitor 40 mg, carvedilol 6.25 mg by mouth twice a day. - Diabetes mellitus - Start Levemir 10 units QHS. - Continue sliding scale insulin Full code. Heparin SQ. Olga Arrieta DO Apr 24, 2016 8:15 am
[2016-04-24] MEDS: CARVEDILOL 6.25 MG TAB PO SCH ×2 (08:23→20:52)
[2016-04-24] MEDS: PANTOPRAZOLE SOD 40 MG DELAYED RELEASE TAB PO SCH (08:23)
[2016-04-24] MEDS: THIAMINE HCL 100 MG TAB PO SCH (08:24)
[2016-04-24] MEDS: HEPARIN SODIUM - SQ 10,000 UNITS/ML VIAL SQ SCH ×2 (08:24→20:52)
[2016-04-24] MEDS: ATORVASTATIN 40 MG TAB PO SCH (08:24)
[2016-04-24] MEDS: SERTRALINE HCL 50 MG TAB PO SCH (08:24)
[2016-04-24] MEDS: ASPIRIN EC 81 MG TABEC PO SCH (08:24)
[2016-04-24] MEDS: SODIUM CHLORIDE 0.9% FLUSH 5 ML FLUSH IV SCH ×2 (08:25→19:42)
--- NOTE | 2016-04-24 10:51 | RADRPT ---
EXAM DATE/TIME: 04/24/2016 09:48 [place] COMPARISON: No previous studies available for comparison. INDICATIONS : Ascites. MEDICAL HISTORY : Myocardial infarction. Hypercholesterolemia. Chronic obstructive pulmonary disease. Syncope. CHF. Pne umonia. Tuberculosis. Cirrhosis. SURGICAL HISTORY : CABG. Coronary artery stent. Pacemaker. Cardiac cath. Hernia repair. AICD. ENCOUNTER: Initial ACUITY: 1 day PAIN SCORE: 1/10 LOCATION: Abdomen. AREA EVALUATED: Abdomen. FINDINGS: Imaging of the abdomen and pelvis was performed to evaluate for ascites for possible paracentesis. No ascitic fluid is observed. Visceral evaluation was not performed at this time. CONCLUSION: No ascitic fluid observed. Gigi Farias Jr., MD on April 24, 2016 at 10:49 Board Certified Radiologist. This report was verified electronically.
[2016-04-24 10:59] LABS: POTASSIUM 4.3 MEQ/L (3.5-5.1)
[2016-04-24] MEDS: SODIUM CHLOR 0.9% 1000 ML INJ 1,000 ML IV SCH ×2 (12:00→20:53)
[2016-04-24 12:42] LABS: BICARBONATE 18.7 MEQ/L (21.0-32.0)
[2016-04-24 13:11] LABS: CALCIUM-PROTEIN CORRECTED 7.2 MG/DL (8.5-10.1)
[2016-04-24] MEDS ORDERED: CALCIUM GLUCONATE INJ 1 GM in SODIUM CHLORIDE 0.9% INJ 100 ML IV ONE (14:00)
[2016-04-24] MEDS: MORPHINE SULFATE 4 MG/ML INJ IV PUSH PRN ×2 (14:27→20:58)
[2016-04-24] MEDS: INSULIN DETEMIR 100 UNITS/ML VIAL SQ SCH (20:53)
[2016-04-25] VITALS (25 sets, daily range): BP systolic 101–121; BP diastolic 53–76; PULSE 60–83; RESP 18–20; TEMP 98–98.8; O2SAT 98–99
[2016-04-25] MEDS: SODIUM CHLOR 0.9% 1000 ML INJ 1,000 ML IV SCH (03:27)
[2016-04-25] MEDS: INSULIN NovoLIN REGULAR SUPPLEMENTAL SCALE SQ SCH ×4 (05:59→21:00)
[2016-04-25] MEDS: HEPARIN SODIUM - SQ 10,000 UNITS/ML VIAL SQ SCH ×2 (09:00→21:30)
[2016-04-25] MEDS: CARVEDILOL 6.25 MG TAB PO SCH ×2 (09:33→21:30)
[2016-04-25] MEDS: ATORVASTATIN 40 MG TAB PO SCH (09:33)
[2016-04-25] MEDS: SERTRALINE HCL 50 MG TAB PO SCH (09:33)
[2016-04-25] MEDS: THIAMINE HCL 100 MG TAB PO SCH (09:33)
[2016-04-25] MEDS: PANTOPRAZOLE SOD 40 MG DELAYED RELEASE TAB PO SCH (09:33)
[2016-04-25] MEDS: ASPIRIN EC 81 MG TABEC PO SCH (09:33)
[2016-04-25] MEDS: SODIUM CHLORIDE 0.9% FLUSH 5 ML FLUSH IV SCH ×2 (09:34→21:31)
[2016-04-25] MEDS: MORPHINE SULFATE 4 MG/ML INJ IV PUSH PRN (09:34)
[2016-04-25 10:10] LABS: BICARBONATE 21.1 MEQ/L (21.0-32.0)
[2016-04-25 11:21] LABS: MAGNESIUM 1.9 MG/DL (1.5-2.5)
[2016-04-25 11:27] LABS: CALCIUM-PROTEIN CORRECTED 7.3 MG/DL (8.5-10.1)
--- NOTE | 2016-04-25 11:58 | HHI.PR ---
Subjective Remarks All all 4 gastroenteritis, AICD firing, MAYELA. Patient is doing well. Denies any chest pain, shortness of breath, fever or chills. Tolerating diet well. Objective Vitals Vital Signs Date Time Temp Pulse Resp B/P Pulse Ox O2 Delivery O2 Flow Rate FiO2 04/25/16 06:00 72 04/25/16 05:00 60 04/25/16 04:00 60 04/25/16 04:00 98.3 64 20 104/70 98 04/25/16 03:00 60 04/25/16 02:00 75 04/25/16 01:00 74 04/25/16 00:00 62 04/25/16 00:00 98.6 70 18 121/53 98 04/24/16 23:00 61 04/24/16 22:00 65 04/24/16 21:00 72 04/24/16 20:26 98.9 68 20 103/66 97 04/24/16 20:00 67 04/24/16 19:15 69 04/24/16 19:15 Nasal Cannula 2.00 04/24/16 18:00 70 04/24/16 17:37 97 Nasal Cannula 2.00 04/24/16 16:00 98.0 68 18 116/72 97 04/24/16 16:00 74 04/24/16 15:00 72 04/24/16 14:26 97 Nasal Cannula 2.00 04/24/16 14:00 70 04/24/16 13:00 73 04/24/16 12:00 75 18 90/66 96 04/24/16 12:00 67 I/O 04/24/16 04/24/16 04/24/16 04/25/16 04/25/16 04/25/16 07:00 15:00 23:00 07:00 15:00 23:00 Intake Total 480 ml 522 ml 1423 ml Output Total 300 ml 725 ml 650 ml Balance 180 ml -203 ml 773 ml Intake Oral 480 ml IV Total 522 ml 1423 ml Output Urine Total 300 ml 725 ml 650 ml Emesis 0 ml # Voids 3 # Bowel Movements 3 Result Diagram: 04/23/16 0622 04/25/16 0942 Imaging Last Impressions Abdomen Ultrasound 04/24/16 0000 Signed Impressions: Service Date/Time: Sunday, April 24, 2016 09:48 - CONCLUSION: No ascitic fluid observed. Gigi Farias Jr., MD Liver Ultrasound 04/23/16 0000 Signed Impressions: Service Date/Time: March 17:38 - CONCLUSION: Echogenic liver. Gallbladder sludge. Splenic granulomas. Shawn Hopper MD Abdomen X-Ray 04/23/16 0000 Signed Impressions: Service Date/Time: March 09:38 - CONCLUSION: No evidence of bowel obstruction. Exam consistent with free fluid in the abdomen or pelvis.. Jennie Arthur MD Chest X-Ray 04/22/16 0825 Signed Impressions: Service Date/Time: Friday, April 22, 2016 08:59 - CONCLUSION: No acute disease. No significant change has occurred. Keegan Hills MD Objective Remarks GENERAL: AOX3, In Mild distress due to vomiting. SKIN: Warm and dry. HEAD: Normocephalic. EYES: No scleral icterus. No injection or drainage. NECK: Supple, trachea midline. No JVD or lymphadenopathy. CARDIOVASCULAR: Regular rate and rhythm without murmurs, gallops, or rubs. RESPIRATORY: Breath sounds equal bilaterally. No accessory muscle use. GASTROINTESTINAL: Abdomen firm, distended, painful on palpation. MUSCULOSKELETAL: No cyanosis, or edema. BACK: Nontender without obvious deformity. No CVA tenderness. Procedures None. A/P Assessment and Plan Mr. Sutherland is a pleasant 65 year old male with a history of cardiomyopathy with LVEF 20%, recently placed cardiac re-synchronization therapy (Dr. Davenport) who came to the ED with 3 day duration of nausea, vomiting, diarrhea. His defibrillator fired twice in the last ten days. Dr. Davenport advised patient to come to the hospital. - Probable gastroenteritis. - Alcoholic liver disease. - Discontinue IV Fluid. - Zofran, Compazine PRN for nausea. - KUB obtained on 04/24/2016 shows no obstruction but shows fluid. - Echogenicity noted on Liver US. No ascites noted on Abd US. - Hyponatremia - improved to 131. - Hyperkalemia - improved to 4.0. - Acute kidney injury - resolved. Creatinine today 1.03. - Hypocalcemia corrected calcium 7.3. - Discontinue IV fluid. Avoid nephrotoxins. - We'll provide 1 g calcium gluconate IV. - Cardiomyopathy - Currently have PHOTOENGRAVING APPRENTICE device. Dr. Davenport follows in the outpatient setting. - Will consult Dr. Davenport regarding device firing twice in the last ten days. - Cardiology consult placed on 04/23/2016. No consult note in the paper chart or EMR yet. - Continue aspirin 81 mg, Lipitor 40 mg, carvedilol 6.25 mg by mouth twice a day. - Will ask nursing staff to contact [facility] to interpret patient's biventricular device. - Depending on the interrogation, we'll discuss with covering canning machine operator regarding potential discharge. - Diabetes mellitus - Continue Levemir 10 units QHS. - Continue sliding scale insulin Full code. Heparin SQ. Olga Arrieta DO Apr 25, 2016 11:58 am
[2016-04-25] MEDS ORDERED: CALCIUM GLUCONATE INJ 1 GM in SODIUM CHLORIDE 0.9% INJ 100 ML IV ONE (12:00)
[2016-04-25] MEDS ORDERED: NYSTAT/DIPHENHY/LIDO MOUTHWASH (Adult) 120ML SWISH-SWAL SCH (18:00)
[2016-04-25] MEDS: INSULIN DETEMIR 100 UNITS/ML VIAL SQ SCH (21:31)
[2016-04-26] VITALS (12 sets, daily range): BP systolic 98–108; BP diastolic 62–69; PULSE 60–89; RESP 18–20; TEMP 98–98.2; O2SAT 93–98
[2016-04-26] MEDS: MORPHINE SULFATE 4 MG/ML INJ IV PUSH PRN ×2 (00:16→09:01)
[2016-04-26] MEDS: INSULIN NovoLIN REGULAR SUPPLEMENTAL SCALE SQ SCH (06:08)
[2016-04-26] MEDS ORDERED: PANT40TA3 PO (08:51)
[2016-04-26] MEDS ORDERED: VITA100T2 PO (08:51)
[2016-04-26] MEDS ORDERED: MAGICADU2 SWISH-SWAL (08:51)
[2016-04-26] MEDS: THIAMINE HCL 100 MG TAB PO SCH (09:00)
[2016-04-26] MEDS: PANTOPRAZOLE SOD 40 MG DELAYED RELEASE TAB PO SCH (09:00)
[2016-04-26] MEDS: CARVEDILOL 6.25 MG TAB PO SCH (09:00)
[2016-04-26] MEDS: ATORVASTATIN 40 MG TAB PO SCH (09:00)
[2016-04-26] MEDS: SERTRALINE HCL 50 MG TAB PO SCH (09:00)
[2016-04-26] MEDS: ASPIRIN EC 81 MG TABEC PO SCH (09:01)
--- NOTE | 2016-04-26 09:23 | HHI.DS ---
Discharge Summary Admission Date Apr 22, 2016 at 10:49 am Discharge Date: Apr 26, 2016 Admitting Diagnosis chest pain, hyponatremia, gastroenteritis (1) Gastroenteritis ICD Code: K52.9 Diagnosis: Principal (2) Ischemic cardiomyopathy ICD Code: I25.5 (3) Diabetes mellitus, type 2 ICD Code: E11.9 (4) MAYELA (acute kidney injury) ICD Code: N17.9 Procedures None. Brief History - From Admission 65 years old male with history of hepatitis CHF EF 20% on medical treatment, history of coronary artery disease and CABG with recent removal of defibrillator replaced with biventricular pacer and defibrillator last month by Dr. Miller, patient came to the ED complaining of 3 days history of worsening nausea vomiting and diarrhea, patient had last night 6 episode of bowel movement which is loose no hematochezia or hematemesis, to me patient denied chest pain short of breath headache fever chills cough or blurry vision. However on the way to the hospital there was a mentioning of some chest discomfort described as a pressure 5 out of 10 constant. Patient was told by Dr. Miller that his defibrillator fired up 10 days ago and he was told to go to the hospital. In ED patient was found to have a sodium of 20, potassium of 5.5 and worsening kidney function was due to dehydration CBC/BMP: 04/23/16 0622 04/25/16 0942 Significant Findings Laboratory Tests Test 04/23/16 04/24/16 04/25/16 22:38 10:25 09:42 Sodium Level 128 MEQ/L 128 MEQ/L 131 MEQ/L (136-145) (136-145) (136-145) Potassium Level 5.2 MEQ/L (3.5-5.1) Chloride Level 95 MEQ/L 95 MEQ/L (98-107) (98-107) Blood Urea Nitrogen 34 MG/DL (7-18) 28 MG/DL (7-18) 21 MG/DL (7-18) Creatinine 1.70 MG/DL (0.60-1.30) Estimat Glomerular Filtration 41 ML/MIN (>89) 61 ML/MIN (>89) 73 ML/MIN (>89) Rate Random Glucose 182 MG/DL 195 MG/DL 128 MG/DL (74-106) (74-106) (74-106) Calcium Level 7.5 MG/DL 7.1 MG/DL 7.1 MG/DL (8.5-10.1) (8.5-10.1) (8.5-10.1) Carbon Dioxide Level 18.7 MEQ/L (21.0-32.0) Protein Corrected Calcium 7.2 MG/DL 7.3 MG/DL (8.5-10.1) (8.5-10.1) Imaging Last Impressions Abdomen Ultrasound 04/24/16 0000 Signed Impressions: Service Date/Time: Sunday, April 24, 2016 09:48 - CONCLUSION: No ascitic fluid observed. Gigi Farias Jr., MD Liver Ultrasound 04/23/16 0000 Signed Impressions: Service Date/Time: March 17:38 - CONCLUSION: Echogenic liver. Gallbladder sludge. Splenic granulomas. Shawn Hopper MD Abdomen X-Ray 04/23/16 0000 Signed Impressions: Service Date/Time: March 09:38 - CONCLUSION: No evidence of bowel obstruction. Exam consistent with free fluid in the abdomen or pelvis.. Jennie Arthur MD Chest X-Ray 04/22/16 0825 Signed Impressions: Service Date/Time: Friday, April 22, 2016 08:59 - CONCLUSION: No acute disease. No significant change has occurred. Keegan Hills MD PE at Discharge GENERAL: AOX3, In Mild distress due to vomiting. SKIN: Warm and dry. HEAD: Normocephalic. EYES: No scleral icterus. No injection or drainage. NECK: Supple, trachea midline. No JVD or lymphadenopathy. CARDIOVASCULAR: Regular rate and rhythm without murmurs, gallops, or rubs. RESPIRATORY: Breath sounds equal bilaterally. No accessory muscle use. GASTROINTESTINAL: Abdomen firm, distended, painful on palpation. MUSCULOSKELETAL: No cyanosis, or edema. BACK: Nontender without obvious deformity. No CVA tenderness. Pt update on day of discharge Patient is doing well. Tolerating breakfast well. No chest pain, fever, chills. He does complain of some throat discomfort but reports improvement with Magic mouth wash. Hospital Course Mr. Sutherland is a pleasant 65 year old male with a history of cardiomyopathy with LVEF 20%, recently placed cardiac re-synchronization therapy (Dr. Davenport) who came to the ED with 3 day duration of nausea, vomiting, diarrhea. His defibrillator fired twice in the last ten days. Dr. Davenport advised patient to come to the hospital. - Probable gastroenteritis - resolved with supportive care. - Alcoholic liver disease. - Discontinued IV Fluid. - Zofran, Compazine PRN for nausea. - KUB obtained on 04/24/2016 shows no obstruction but shows fluid. - Echogenicity noted on Liver US. No ascites noted on Abd US. - Hyponatremia - improved to 131. - Hyperkalemia - improved to 4.0. - Acute kidney injury - resolved. Creatinine improved to 1.03. - Hypocalcemia corrected calcium 7.3. - Discontinue IV fluid. Avoid nephrotoxins. - Calcium supplemented with calcium gluconate. - Cardiomyopathy - Currently have PHOTOGRAPHER MOTION PICTURE device. Dr. Davenport follows in the outpatient setting. - Will consult Dr. Davenport regarding device firing twice in the last ten days. - Cardiology consult placed on 04/23/2016. No consult note in the paper chart or EMR yet. - I have discussed with covering vp human resources Dr. Collins on 04/25/2016 and 04/26/2016. - Device interrogation was done on 04/25/2016. [facility] [facility] rep reported normal function of the device. Device fired on 04/11/2016. - I have communicated this to Dr. Collins. At this point, I will discharge patient home with his scheduled follow up with Dr. Davenport on 05/08/2016. - I have informed my plan to discharge Dr. Collins and he is okay with this plan. - Continue aspirin 81 mg, Lipitor 40 mg, carvedilol 6.25 mg by mouth twice a day. - Diabetes mellitus - Continue Levemir 10 units QHS. - Continue sliding scale insulin Full code. Heparin SQ. Pt Condition on Discharge: Good Discharge Disposition: Discharge Home Discharge Time: > 30 minutes Discharge Instructions DIET: Follow Instructions for: Diabetic Diet Activities you can perform: Regular-No Restrictions Follow up Referrals: Cardiology - 05/08/16 with Matt Davenport MD PCP Follow-up - 2 Weeks New Medications: Inqvafnt-Jnesafqtrelbtbn-Wljulqtof Liq (Magic Mouthwash Adult Liq) 120 Ml Susp 10 ML SWISH-SWAL QID throat pain Days 14 ML Pantoprazole (Pantoprazole) 40 Mg Tab 40 MG PO DAILY Reflux #30 TAB Thiamine (Vitamin B-1) 100 Mg Tab 100 MG PO DAILY Vitamin Days 30 TAB Continued Medications: Acetaminophen-Codeine (Acetaminophen-Codeine) 300-30 mg Tab 2 TAB PO Q4H PRN PAIN SCALE 6 TO 10 #30 Ref 0 TAB Aspirin (Aspirin) 81 Mg Tabdr 81 MG PO DAILY TAB Atorvastatin (Atorvastatin) 40 Mg Tab 40 MG PO DAILY Cholesterol Management #30 Ref 0 TAB Carvedilol (Coreg) 6.25 Mg Tab 6.25 MG PO Q12HR cardiac Days 30 TAB Cholecalciferol (D3) 1,000 Unit Tab 1000 UNITS PO DAILY Fluticasone Nasal [place] (Flonase Allergy Relief Nasal [place]) 50 Mcg/Act [place] 1 SPRAY EACH NARE DAILY Allergies BOTTLE Furosemide (Lasix) 20 Mg Tab 20 MG PO DAILY CHF #30 Ref 0 TAB Insulin Degludec Inj (Tresiba Flextouch Pen Inj) 300 unit/3 ML Pen 80 UNITS SQ DAILY Blood Sugar Management ML Ipratropium-Albuterol Inh (Combivent Respimat Inh) 20-100 [place]/Act Aero 2 PUFF INH BID Asthma Management INHALER Lisinopril (Lisinopril) 2.5 Mg Tab 2.5 MG PO DAILY TAB Nitroglycerin SL (Nitroglycerin SL) 0.4 Mg Subl 0.4 MG SL DIRECTED ONE TABLET UNDER THE TONGUE NEEDED FOR CHEST PAIN, MAY REPEAT EVERY FIVE MINUTES FOR A TOTAL OF 3 DOSES OR CALL 911 IF NO RELIEF PRN CHEST PAIN TAB.SL Sertraline (Zoloft) 50 Mg Tab 50 MG PO DAILY TAB ([Zaditor]) 0.025 DROP EACH EYE DAILY Discontinued Medications: Cephalexin (Keflex) 500 Mg Cap 500 MG PO TID Infection #9 Ref 0 CAP Olga Arrieta DO Apr 26, 2016 9:23 am
== END 2016-04-26 10:30 | disposition home or self-care (01) | DRG 683 ==
LOC: NEPC 08:16 → NEDA 10:49 → HCIN 12:26
PROVIDERS: ADMIT Hospitalist; ATTEND Hospitalist
DX: N17.9 Acute kidney failure, unspecified (principal); E87.1 Hypo-osmolality and hyponatremia; I11.0 Hypertensive heart disease with heart failure; I50.9 Heart failure, unspecified; K70.30 Alcoholic cirrhosis of liver without ascites; E86.0 Dehydration; K52.9 Noninfective gastroenteritis and colitis, unspecified; E11.9 Type 2 diabetes mellitus without complications; E78.5 Hyperlipidemia, unspecified; I25.10 Atherosclerotic heart disease of native coronary artery without angina pectoris; J44.9 Chronic obstructive pulmonary disease, unspecified; R25.1 Tremor, unspecified; G47.30 Sleep apnea, unspecified; J45.909 Unspecified asthma, uncomplicated; E87.5 Hyperkalemia; E83.51 Hypocalcemia; I25.5 Ischemic cardiomyopathy; F10.10 Alcohol abuse, uncomplicated; F32.9 Major depressive disorder, single episode, unspecified; F41.9 Anxiety disorder, unspecified; Z79.4 Long term (current) use of insulin; Z95.1 Presence of aortocoronary bypass graft; Z95.810 Presence of automatic (implantable) cardiac defibrillator
CPT/HCPCS: 71010; 74000; 76705; 80048; 80053; 80061; 81001; 82550; 82552; 82607; 82746; 82948; 83735; 83880; 83930; 83935; 84100; 84155; 84484; 85025; 85610; 85730; 87804; 93005; 96374; J0610; J1644; J1815; J1940; J2270; J2405; J2765; J7030

== ENCOUNTER 2016-05-17 19:32 | Observation (INO) | payer MEDICARE, OTHER ==
[~2016-05-17] VITALS: Ht 200.7 cm; Wt 87.0 kg
[~2016-05-17 19:32] MED LIST changes: -CEPH-460 PO; +MAGICADU2 SWISH-SWAL; +PANT40TA3 PO; +VITA100T2 PO
[2016-05-17 19:36] VITALS: BP 161/85; PULSE 95; RESP 18; TEMP 99.2; O2SAT 92
[2016-05-17 19:44] VITALS: BP 135/79; PULSE 97; RESP 18; O2SAT 92
[2016-05-17] MEDS ORDERED: SODIUM CHLORIDE 0.9% FLUSH 5 ML FLUSH IVF PRN (19:45)
[2016-05-17] MEDS ORDERED: FURO1TAB60 PO (19:53)
--- NOTE | 2016-05-17 19:55 | PD ---
Physical Exam Narrative General: The patient is a well-developed well-nourished male in no acute distress.d and Neck exam: Head is normocephalic atraumatic. Eyes: EOMI, pupils are equal round and reactive to light. Nose: Midline septum with pink mucous membranes Mouth: Dentition unremarkable. Moist mucus membranes. Posterior oropharynx is not erythematous. No tonsillar hypertrophy. Uvula midline. Airway patent. Neck: No palpable lymphadenopathy. No nuchal rigidity. No thyromegaly. Cardiovascular: Regular rate and rhythm without murmurs, gallops, or rubs. Lungs: Clear to auscultation bilaterally. No wheezes, rhonchi, or rales. Abdomen: Soft, without tenderness to palpation in all 4 quadrants of the abdomen. No guarding, rebound, or rigidity. Normal bowel sounds are audible. Extremities: No clubbing or cyanosis. The patient has trace pitting edema bilateral lower extremities. 2+ pulses in all 4 extremities. No calf tenderness on palpation. Back: No spinous process tenderness to palpation. No costovertebral angle tenderness to palpation. Neurologic Exam: Grossly nonfocal. Skin Exam: No rash noted. Intact skin that is warm and dry. Data Data Last Documented VS Vital Signs Date Time Temp Pulse Resp B/P Pulse Ox O2 Delivery O2 Flow Rate FiO2 05/17/16 19:44 92 Room Air 05/17/16 19:44 97 18 135/79 05/17/16 19:36 99.2 Orders Ckmb (Isoenzyme) Profile (05/17/16 19:42) Complete Blood Count With Diff (05/17/16 19:42) Comprehensive Metabolic Panel (05/17/16 19:42) Magnesium (Mg) (05/17/16 19:42) Prothrombin Time / Inr (Pt) (05/17/16 19:42) Act Partial Throm Time (Ptt) (05/17/16 19:42) Troponin I (05/17/16 19:42) Ecg Monitoring (05/17/16 19:42) Bilateral Bp Monitoring (05/17/16 19:42) Iv Access Insert/Monitor (05/17/16 19:42) Oximetry (05/17/16 19:42) Oxygen Administration (05/17/16 19:42) Sodium Chloride 0.9% Flush (Ns Flush) (05/17/16 19:45) B-Type Natriuretic Peptide (05/17/16 20:08) Admit Order (Ed Use Only) (05/17/16 20:10) Thyroid Stimulating Hormone (05/17/16 19:15) CKMB (05/17/16 19:15) CKMB% (05/17/16 19:15) Labs Laboratory Tests Test 05/17/16 19:15 White Blood Count 9.4 TH/MM3 Red Blood Count 4.57 MIL/MM3 Hemoglobin 14.1 GM/DL Hematocrit 42.7 % Mean Corpuscular Volume 93.5 FL Mean Corpuscular Hemoglobin 31.0 PG Mean Corpuscular Hemoglobin 33.1 % Concent Red Cell Distribution Width 14.0 % Platelet Count 150 TH/MM3 Mean Platelet Volume 9.6 FL Neutrophils (%) (Auto) 69.4 % Lymphocytes (%) (Auto) 17.8 % Monocytes (%) (Auto) 9.4 % Eosinophils (%) (Auto) 2.7 % Basophils (%) (Auto) 0.7 % Neutrophils # (Auto) 6.5 TH/MM3 Lymphocytes # (Auto) 1.7 TH/MM3 Monocytes # (Auto) 0.9 TH/MM3 Eosinophils # (Auto) 0.3 TH/MM3 Basophils # (Auto) 0.1 TH/MM3 CBC Comment DIFF FINAL Differential Comment Prothrombin Time 11.7 SEC Prothromb Time International 1.1 RATIO Ratio Activated Partial 26.9 SEC Thromboplast Time Sodium Level 129 MEQ/L Potassium Level 3.6 MEQ/L Chloride Level 91 MEQ/L Carbon Dioxide Level 25.6 MEQ/L Anion Gap 12 MEQ/L Blood Urea Nitrogen 12 MG/DL Creatinine 1.30 MG/DL Estimat Glomerular Filtration 56 ML/MIN Rate Random Glucose 283 MG/DL Calcium Level 8.2 MG/DL Magnesium Level 1.7 MG/DL Total Bilirubin 0.6 MG/DL Aspartate Amino Transf 43 U/L (AST/SGOT) Alanine Aminotransferase 57 U/L (ALT/SGPT) Alkaline Phosphatase 94 U/L Total Creatine Kinase 127 U/L Creatine Kinase MB 3.3 NG/ML Troponin I 0.12 NG/ML B-Type Natriuretic Peptide 242 PG/ML Total Protein 8.6 GM/DL Albumin 3.5 GM/DL Thyroid Stimulating Hormone 5.520 uIU/ML 3rd Gen [facility] Medical Record Reviewed: Yes Supervised Visit with EDGARDO: Yes Interpretation(s) Laboratory Tests Test 05/17/16 19:15 White Blood Count 9.4 TH/MM3 Red Blood Count 4.57 MIL/MM3 Hemoglobin 14.1 GM/DL Hematocrit 42.7 % Mean Corpuscular Volume 93.5 FL Mean Corpuscular Hemoglobin 31.0 PG Mean Corpuscular Hemoglobin 33.1 % Concent Red Cell Distribution Width 14.0 % Platelet Count 150 TH/MM3 Mean Platelet Volume 9.6 FL Neutrophils (%) (Auto) 69.4 % Lymphocytes (%) (Auto) 17.8 % Monocytes (%) (Auto) 9.4 % Eosinophils (%) (Auto) 2.7 % Basophils (%) (Auto) 0.7 % Neutrophils # (Auto) 6.5 TH/MM3 Lymphocytes # (Auto) 1.7 TH/MM3 Monocytes # (Auto) 0.9 TH/MM3 Eosinophils # (Auto) 0.3 TH/MM3 Basophils # (Auto) 0.1 TH/MM3 CBC Comment DIFF FINAL Differential Comment Prothrombin Time 11.7 SEC Prothromb Time International 1.1 RATIO Ratio Activated Partial 26.9 SEC Thromboplast Time Sodium Level 129 MEQ/L Potassium Level 3.6 MEQ/L Chloride Level 91 MEQ/L Carbon Dioxide Level 25.6 MEQ/L Anion Gap 12 MEQ/L Blood Urea Nitrogen 12 MG/DL Creatinine 1.30 MG/DL Estimat Glomerular Filtration 56 ML/MIN Rate Random Glucose 283 MG/DL Calcium Level 8.2 MG/DL Magnesium Level 1.7 MG/DL Total Bilirubin 0.6 MG/DL Aspartate Amino Transf 43 U/L (AST/SGOT) Alanine Aminotransferase 57 U/L (ALT/SGPT) Alkaline Phosphatase 94 U/L Total Creatine Kinase 127 U/L Creatine Kinase MB 3.3 NG/ML Troponin I 0.12 NG/ML B-Type Natriuretic Peptide 242 PG/ML Total Protein 8.6 GM/DL Albumin 3.5 GM/DL Thyroid Stimulating Hormone 5.520 uIU/ML 3rd Gen Narrative Course I, Dr. Byrd, have reviewed the advance practice practitioner's documentation and am in agreement, met with the patient face to face, made the diagnosis, and the medical decision making was done by me. The patient was initially seen by Myranda, please see her complete history and physical. *My assessment and Findings: The patient is a 65-year-old male who presents to [facility] emergency Department with a history of while preparing dinner having his pacemaker fire twice in rapid succession. He denies having any chest pain or shortness of breath prior to this occurring. He reports the last time that this occurred was one month ago. He reports that he was admitted to the hospital and evaluated at that time and thought to have electrolyte imbalances that contributed to it. He denies having any recent changes to his medication regimen although he does have a history of high blood pressure and has not been taking his blood pressure medication this regularly as previously as his blood pressure has been lower than usual. The patient additionally reports that over the last week he has had more frequent stools, softer and consistency usually 4-5 times per day. He denies having any blood in his stool or black or tarry stools. He reports that he last had a colonoscopy 7-8 months ago which revealed colonic polyps, no other acute abnormality. The patient reports that he's had some weight gain and edema over the last month. He reports that he's had over the last week and increase in his weight of approximately 8 pounds, however over the last few days it is gone down again by 4 pounds. The patient reports that he is taking his furosemide 40 mg every morning. The patient reports that he is on a baby aspirin daily. He denies being on any other blood thinners as he does have a history of thrombocytopenia. The patient reports that he does have a history of cirrhosis thought to be related to heavy alcohol use as a young adult, however he continues to drink 2-3 beers daily. The patient reports a history of triple vessel coronary artery bypass grafting in 1 stent placed previously, history of stenting of his lower extremities related to peripheral arterial disease, congestive heart failure and pacemaker/ AICD placement. The patient additionally reports having history of COPD, however he quit smoking a year ago. The patient's laboratory studies were remarkable for a white count of 9.4 , hemoglobin 14.1, platelets 150 with 9.4 monocytes, CMP is remarkable for sodium of 129, chloride 91, glucose 283, calcium 8.2, AST 43, CPK 127, troponin I 0.12, BNP is 242, TSH 5.5, INR 1.1.The patient's pacemaker was interrogated and he was noted to have 3 episodes of ventricular fibrillation, one of which she was paced out of at 5 PM yesterday, the other 2 episodes were this evening and his AICD fire 2. The patient will be admitted to the hospital for continued evaluation and treatment. Diagnosis Primary Impression: AICD discharge Additional Impression: Ventricular fibrillation Admitting Information Admitting Physician Requests: Admit Lizzie Byrd MD May 17, 2016 19:55
--- NOTE | 2016-05-17 20:05 | PD ---
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 Patient does report feeling weak, dizzy for the last 4-5 days. He states this happened a week or 2 ago and he had an electrolyte imbalance at that time. He denies any chest pain, shortness of breath prior to or after the pacemaker fired. Patient's past medical history includes atrial fibrillation, insulin-dependent diabetes, congestive heart failure, hyperlipidemia. PFSH Past Medical History Hx Anticoagulant Therapy: Yes (ASA) Arthritis: No Asthma: Yes Atrial Fibrillation: Yes Autoimmune Disease: No Blood Disorders: No Anxiety: Yes Depression: Yes Cancer: No Cardiac Catheterization: Yes High Cholesterol: Yes Chemotherapy: No Chest Pain: Yes Congestive Heart Failure: Yes Cirrhosis: Yes COPD: Yes Cerebrovascular Accident: No Diabetes: Yes Patient Takes Glucophage: No Diminished Hearing: No Gastrointestinal Disorders: Yes (ASCITES) GERD: No Glaucoma: No Genitourinary: No Headaches: Yes Hepatitis: No Hiatal Hernia: No Hypertension: Yes Immune Disorder: No Implanted Vascular Access Dvce: Yes Kidney Stones: No Musculoskeletal: No Neurologic: Yes (tremors) Psychiatric: No Reproductive: No Integumentary: No Immunizations Current: No Migraines: No Pneumonia: Yes Radiation Therapy: No Renal Failure: No Seizures: No Sickle Cell Disease: No Sleep Apnea: Yes Thyroid Disease: No Ulcer: No Tetanus Vaccination: < 5 Years Influenza Vaccination: Yes Past Surgical History Abdominal Surgery: Yes (hernia repair) AICD: Yes ([employer]) Arteriovenous Shunt: No Body Medical Devices: STENTS TAYA LEGS [employer] HEART, DEFIBRILLATOR Coronary Artery Bypass Graft: Yes (TRIPLE) Coronary Stent: Yes (X3) Ear Surgery: No Endocrine Surgery: No Eye Surgery: No Genitourinary Surgery: No Gynecologic Surgery: No Insulin Pump: No Joint Replacement: No Oral Surgery: No Pacemaker: Yes (AICD) Social History Alcohol Use: Yes (EVERYDAY) Tobacco Use: No (QUIT A YEAR AGO ) Substance Use: No Allergies-Medications (Allergen,Severity, Reaction): Coded Allergies: No Known Allergies (Unverified , 04/22/16) Reported Meds & Prescriptions Reported Meds & Active Scripts Active Vitamin B-1 (Thiamine HCl) 100 Mg Tab 100 Mg PO DAILY 30 Days Pantoprazole (Pantoprazole Sodium) 40 Mg Tab 40 Mg PO DAILY Reported Lasix (Furosemide) 40 Mg Tab 40 Mg PO DAILY [Zaditor] 0.025 Drop EACH EYE DAILY Atorvastatin (Atorvastatin Calcium) 40 Mg Tab 40 Mg PO DAILY D3 (Cholecalciferol) 1,000 Unit Tab 1,000 Units PO DAILY Flonase Allergy Relief Nasal [place] (Fluticasone Nasal [place]) 50 Mcg/Act [place] 1 [place] EACH NARE DAILY Lisinopril 2.5 Mg Tab 2.5 Mg PO DAILY Zoloft (Sertraline HCl) 50 Mg Tab 50 Mg PO DAILY Nitroglycerin SL (Nitroglycerin) 0.4 Mg Subl 0.4 Mg SL DIRECTED PRN ONE TABLET UNDER THE TONGUE NEEDED FOR CHEST PAIN, MAY REPEAT EVERY FIVE MINUTES FOR A TOTAL OF 3 DOSES OR CALL 911 IF NO RELIEF Aspirin 81 Mg Tabdr 81 Mg PO DAILY Combivent Respimat Inh (Ipratropium-Albuterol Inh) 20-100 Care Home/Act Aero 2 Puff INH BID Tresiba Flextouch Pen Inj (Insulin Degludec Inj) 300 unit/3 ML Pen 95 Units SQ DAILY Review of Systems Except as stated in HPI: all other systems reviewed are Neg General / Constitutional: Positive: Other (fatigue) HENT: Positive: Rhinitis, Congestion, No: Headaches Cardiovascular: No: Chest Pain or Discomfort Respiratory: No: Shortness of Breath Gastrointestinal: No: Nausea, Abdominal Pain Neurologic: Positive: Weakness, Dizziness Physical Exam Narrative GENERAL: Obese, well-developed, alert male. Resting comfortably in no acute distress. SKIN: Warm and dry. HEAD: Atraumatic. Normocephalic. EYES: Pupils equal and round. No scleral icterus. No injection or drainage. ENT: No nasal bleeding or discharge. Mucous membranes pink and moist. NECK: Trachea midline. No JVD. CARDIOVASCULAR: Regular rate and rhythm. No murmur appreciated. RESPIRATORY: No accessory muscle use. Clear to auscultation. Breath sounds equal bilaterally. GASTROINTESTINAL: Abdomen obese, soft, non-tender, nondistended. Hepatic and splenic margins not palpable. MUSCULOSKELETAL: No obvious deformities. No clubbing. No cyanosis. No edema. Positive pedal pulses. NEUROLOGICAL: Awake and alert. No obvious cranial nerve deficits. Motor grossly within normal limits. Normal speech. PSYCHIATRIC: Appropriate mood and affect; insight and judgment normal. Data Data Last Documented VS Vital Signs Date Time Temp Pulse Resp B/P Pulse Ox O2 Delivery O2 Flow Rate FiO2 05/17/16 19:44 92 Room Air 05/17/16 19:44 97 18 135/79 05/17/16 19:36 99.2 Orders Ckmb (Isoenzyme) Profile (05/17/16 19:42) Complete Blood Count With Diff (05/17/16 19:42) Comprehensive Metabolic Panel (05/17/16 19:42) Magnesium (Mg) (05/17/16 19:42) Prothrombin Time / Inr (Pt) (05/17/16 19:42) Act Partial Throm Time (Ptt) (05/17/16 19:42) Troponin I (05/17/16 19:42) Ecg Monitoring (05/17/16 19:42) Bilateral Bp Monitoring (05/17/16 19:42) Iv Access Insert/Monitor (05/17/16 19:42) Oximetry (05/17/16 19:42) Oxygen Administration (05/17/16 19:42) Sodium Chloride 0.9% Flush (Ns Flush) (05/17/16 19:45) B-Type Natriuretic Peptide (05/17/16 20:08) Admit Order (Ed Use Only) (05/17/16 20:10) Thyroid Stimulating Hormone (05/17/16 19:15) CKMB (05/17/16 19:15) CKMB% (05/17/16 19:15) Labs Laboratory Tests Test 05/17/16 19:15 White Blood Count 9.4 TH/MM3 Red Blood Count 4.57 MIL/MM3 Hemoglobin 14.1 GM/DL Hematocrit 42.7 % Mean Corpuscular Volume 93.5 FL Mean Corpuscular Hemoglobin 31.0 PG Mean Corpuscular Hemoglobin 33.1 % Concent Red Cell Distribution Width 14.0 % Platelet Count 150 TH/MM3 Mean Platelet Volume 9.6 FL Neutrophils (%) (Auto) 69.4 % Lymphocytes (%) (Auto) 17.8 % Monocytes (%) (Auto) 9.4 % Eosinophils (%) (Auto) 2.7 % Basophils (%) (Auto) 0.7 % Neutrophils # (Auto) 6.5 TH/MM3 Lymphocytes # (Auto) 1.7 TH/MM3 Monocytes # (Auto) 0.9 TH/MM3 Eosinophils # (Auto) 0.3 TH/MM3 Basophils # (Auto) 0.1 TH/MM3 CBC Comment DIFF FINAL Differential Comment Prothrombin Time 11.7 SEC Prothromb Time International 1.1 RATIO Ratio Activated Partial 26.9 SEC Thromboplast Time Sodium Level 129 MEQ/L Potassium Level 3.6 MEQ/L Chloride Level 91 MEQ/L Carbon Dioxide Level 25.6 MEQ/L Anion Gap 12 MEQ/L Blood Urea Nitrogen 12 MG/DL Creatinine 1.30 MG/DL Estimat Glomerular Filtration 56 ML/MIN Rate Random Glucose 283 MG/DL Calcium Level 8.2 MG/DL Magnesium Level 1.7 MG/DL Total Bilirubin 0.6 MG/DL Aspartate Amino Transf 43 U/L (AST/SGOT) Alanine Aminotransferase 57 U/L (ALT/SGPT) Alkaline Phosphatase 94 U/L Total Creatine Kinase 127 U/L Creatine Kinase MB 3.3 NG/ML Troponin I 0.12 NG/ML B-Type Natriuretic Peptide 242 PG/ML Total Protein 8.6 GM/DL Albumin 3.5 GM/DL Thyroid Stimulating Hormone 5.520 uIU/ML [facility] Medical Decision Making Medical Screen Exam Complete: Yes Emergency Medical Condition: Yes Interpretation(s) Laboratory Tests Test 05/17/16 19:15 White Blood Count 9.4 TH/MM3 Red Blood Count 4.57 MIL/MM3 Hemoglobin 14.1 GM/DL Hematocrit 42.7 % Mean Corpuscular Volume 93.5 FL Mean Corpuscular Hemoglobin 31.0 PG Mean Corpuscular Hemoglobin 33.1 % Concent Red Cell Distribution Width 14.0 % Platelet Count 150 TH/MM3 Mean Platelet Volume 9.6 FL Neutrophils (%) (Auto) 69.4 % Lymphocytes (%) (Auto) 17.8 % Monocytes (%) (Auto) 9.4 % Eosinophils (%) (Auto) 2.7 % Basophils (%) (Auto) 0.7 % Neutrophils # (Auto) 6.5 TH/MM3 Lymphocytes # (Auto) 1.7 TH/MM3 Monocytes # (Auto) 0.9 TH/MM3 Eosinophils # (Auto) 0.3 TH/MM3 Basophils # (Auto) 0.1 TH/MM3 CBC Comment DIFF FINAL Differential Comment Prothrombin Time 11.7 SEC Prothromb Time International 1.1 RATIO Ratio Activated Partial 26.9 SEC Thromboplast Time Sodium Level 129 MEQ/L Potassium Level 3.6 MEQ/L Chloride Level 91 MEQ/L Carbon Dioxide Level 25.6 MEQ/L Anion Gap 12 MEQ/L Blood Urea Nitrogen 12 MG/DL Creatinine 1.30 MG/DL Estimat Glomerular Filtration 56 ML/MIN Rate Random Glucose 283 MG/DL Calcium Level 8.2 MG/DL Magnesium Level 1.7 MG/DL Total Bilirubin 0.6 MG/DL Aspartate Amino Transf 43 U/L (AST/SGOT) Alanine Aminotransferase 57 U/L (ALT/SGPT) Alkaline Phosphatase 94 U/L Total Creatine Kinase 127 U/L Creatine Kinase MB 3.3 NG/ML Troponin I 0.12 NG/ML B-Type Natriuretic Peptide 242 PG/ML Total Protein 8.6 GM/DL Albumin 3.5 GM/DL Thyroid Stimulating Hormone 5.520 uIU/ML 3rd Gen Vital Signs Date Time Temp Pulse Resp B/P Pulse Ox O2 Delivery O2 Flow Rate FiO2 05/17/16 19:44 92 Room Air 05/17/16 19:44 97 18 135/79 92 Room Air 05/17/16 19:44 92 Room Air 05/17/16 19:41 95 18 94 Room Air 05/17/16 19:36 99.2 95 18 161/85 92 Differential Diagnosis Electrolyte abnormality versus sinusitis versus viral URI versus cardiac arrhythmia versus other Narrative Course Patient is a 64-year-old male presenting to return for evaluation after his pacemaker/AICD fired twice prior to arrival while he was making dinner. Patient no complaints upon arrival. Vital signs are stable. Labs ordered and pending. Patient placed on telemetry monitoring, continuous pulse oximetry. He did state that he felt weak and dizzy for the last week, he was evaluated emergency department at the end of March after his pacemaker fired at that time to. [employer] operations representative evaluated pacemaker, patient had been paced out of V. fib last night and he had 2 episodes of V. fib today that needed firing in order to abort the rhythm. CBC is unremarkable, coags are unremarkable. Chemistry shows a troponin at 0.12 , BNP at 242, TSH of 5.52, sodium 129. Patient will be kept under observation to monitor for further cardiac arrhythmias. Dr. Bey accepted admission. Diagnosis Primary Impression: Ventricular tachycardia Additional Impressions: AICD discharge Elevated troponin Hyponatremia Thyroid activity decreased Qualified Code: E03.9 - Hypothyroidism, unspecified type Admitting Information Admitting Physician Requests: Observation Condition: Stable Myranda Mcmillan May 17, 2016 20:05
[2016-05-17 20:07] LABS: AUTOMATED NEUTROPHIL # 6.5 TH/MM3 (1.8-7.7); BASOPHIL # 0.1 TH/MM3 (0-0.2); BASOPHIL % 0.7 % (0.0-2.0); EOSINOPHIL # 0.3 TH/MM3 (0-0.4); EOSINOPHIL % 2.7 % (0.0-4.0); HEMATOCRIT 42.7 % (39.0-51.0); HEMO FLAGS DIFF FINAL; LYMPH % 17.8 % (9.0-44.0); LYMPHOCYTE # 1.7 TH/MM3 (1.0-4.8); MEAN CELL VOLUME 93.5 FL (80.0-100.0); MEAN CORPUSCULAR HGB CONC 33.1 % (32.0-36.0); MONO % 9.4 % (0.0-8.0); NEUT % 69.4 % (16.0-70.0); PLATELET COUNT 150 TH/MM3 (150-450); RED BLOOD COUNT 4.57 MIL/MM3 (4.50-5.90); WHITE BLOOD COUNT 9.4 TH/MM3 (4.0-11.0)
[2016-05-17 20:19] LABS: APTT (PATIENT) 26.9 SEC (24.3-30.1); INTERNATIONAL NORMALIZED RATIO 1.1 RATIO; PROTHROMBIN TIME - PATIENT 11.7 SEC (9.8-11.6)
[2016-05-17 20:45] LABS: ANION GAP 12 MEQ/L (5-15); AST (GOT) 43 U/L (15-37); BICARBONATE 25.6 MEQ/L (21.0-32.0); BLOOD UREA NITROGEN 12 MG/DL (7-18); CHLORIDE 91 MEQ/L (98-107); GLOMERULAR FILTRATION RATE 56 ML/MIN (>89); MAGNESIUM 1.7 MG/DL (1.5-2.5); POTASSIUM 3.6 MEQ/L (3.5-5.1); SODIUM (NA) 129 MEQ/L (136-145)
[2016-05-17 20:52] LABS: ALKALINE PHOSPHATASE 94 U/L (45-117); ALT (GPT) 57 U/L (12-78); CREATINE KINASE 127 U/L (39-308); TOTAL BILIRUBIN ADULT 0.6 MG/DL (0.2-1.0)
[2016-05-17 21:05] LABS: CKMB 3.3 NG/ML (0.5-3.6)
[2016-05-17] MEDS ORDERED: SODIUM CHLORIDE 0.9% FLUSH 5 ML FLUSH FLUSH PRN (21:15)
[2016-05-17] MEDS ORDERED: POTASSIUM CHLORIDE 20 MEQ CONTROLLED RELEASE TAB PO ONE (21:15)
[2016-05-17] MEDS ORDERED: MAGNESIUM SULFATE 1 GM PREMIX 100 ML IV ONE (21:15)
[2016-05-17] MEDS ORDERED: NALOXONE HCL 0.4 MG/ML AMP IV PRN (21:15)
[2016-05-17 21:51] VITALS: BP 145/80; PULSE 98; RESP 18; O2SAT 92
[2016-05-18] VITALS (9 sets, daily range): BP systolic 121–147; BP diastolic 74–86; PULSE 74–95; RESP 16–21; TEMP 97.3–98.6; O2SAT 93–98
[2016-05-18] MEDS ORDERED: GLUCAGON 1 MG/ML VIAL OTHER PRN (00:15)
[2016-05-18] MEDS ORDERED: DEXTROSE 50% IN WATER 50 ML VIAL(D50) IV PUSH PRN (00:15)
[2016-05-18] MEDS ORDERED: RESP: ALBUTEROL 2.5 MG/IPRATROPIUM 0.5 MG NEB (PRN) NEB (00:30)
[2016-05-18 02:03] LABS: AUTOMATED NEUTROPHIL # 5.3 TH/MM3 (1.8-7.7); BASOPHIL # 0.1 TH/MM3 (0-0.2); BASOPHIL % 0.9 % (0.0-2.0); EOSINOPHIL # 0.2 TH/MM3 (0-0.4); EOSINOPHIL % 2.5 % (0.0-4.0); HEMO FLAGS DIFF FINAL; LYMPH % 17.6 % (9.0-44.0); LYMPHOCYTE # 1.3 TH/MM3 (1.0-4.8); MEAN CELL VOLUME 91.6 FL (80.0-100.0); MEAN CORPUSCULAR HEMOGLOBIN 30.6 PG (27.0-34.0); MEAN CORPUSCULAR HGB CONC 33.4 % (32.0-36.0); MONO % 9.8 % (0.0-8.0); NEUT % 69.2 % (16.0-70.0); PLATELET COUNT 145 TH/MM3 (150-450); RED BLOOD COUNT 4.37 MIL/MM3 (4.50-5.90); RED CELL DISTRIBUTION WIDTH 14.1 % (11.6-17.2); WHITE BLOOD COUNT 7.6 TH/MM3 (4.0-11.0)
--- NOTE | 2016-05-18 04:09 | HHI.HP ---
[facility] Venice Mota MD Admission Diagnosis ABDOMINAL PAIN, DIARRHEA Diagnoses: (1) Ventricular tachyarrhythmia (2) Type 2 diabetes mellitus (3) Elevated troponin (4) COPD (chronic obstructive pulmonary disease) (5) Hyponatremia (6) AICD discharge (7) TSH elevation Chief Complaint: AICD fired twice Travel History International Travel<30 Days: No Contact w/Intl Traveler <30 Da: No Traveled to Known Affected Are: No History of Present Illness Mr. Sutherland is a 65-year-old male with a past medical history of congestive heart failure with EF of 20%, coronary artery disease with coronary artery bypass graft surgery with recent biventricular pacemaker and defibrillator in February by Dr. Davenport, hyperlipidemia, liver cirrhosis, COPD, and type 2 diabetes mellitus who presented to the emergency room on 05/17/2016 with complaint of his defibrillator firing twice in rapid succession. The [employer] underwriting sales representative evaluated the pacemaker in the ER and stated that the patient had 2 episodes of V. fib requiring defibrillation and an episode of V. fib last night that he had been paced out of. Hyponatremia noted with sodium 129- appears chronic compared to prior admissions/hospital visits; elevated troponin I 0.12; BNP slightly elevated at 242 (was 116 on 04/22/16, was 150 on 02/03/16, was 1435 on 05/06/2015). Patient seen in the CDU. The patient states that he was peeling a cucumber in the kitchen and the defibrillator went off twice. He denies any recent fever, dizziness, cough, shortness of breath, palpitations, hematuria, or hematochezia. He does report having some chest tightness that didn't radiate and was not accompanied by nausea or vomiting. He denies any recent long car or plane rides. He reports taking baby aspirin at home and no other blood thinners. . Review of Systems Constitutional: DENIES: Fever, Dizziness Respiratory: DENIES: Cough, Shortness of breath Cardiovascular: COMPLAINS OF: Chest pain (tightness; didn't radiate), DENIES: Palpitations Gastrointestinal: DENIES: Black stools, Bloody stools, Diarrhea Genitourinary: DENIES: Hematuria, Dysuria Neurologic: DENIES: Localized weakness, Paresthesias, Seizures Except as stated in HPI: all other systems reviewed are Neg Past Family Social History Past Medical History Coronary artery disease status post CABG CHF with ejection fraction of 20% Anxiety Depression Hyperlipidemia Liver cirrhosis COPD Type 2 diabetes mellitus Sleep apnea Peripheral vascular disease . Past Surgical History Bilateral leg stents Removal of defibrillator with placement of biventricular pacemaker/ defibrillator placed March 26, 2016 Coronary artery bypass graft 3 Coronary stenting Hernia repair Paracentesis x 2 . Reported Medications Reported Meds & Active Scripts Active Vitamin B-1 (Thiamine HCl) 100 Mg Tab 100 Mg PO DAILY 30 Days Pantoprazole (Pantoprazole Sodium) 40 Mg Tab 40 Mg PO DAILY Reported Lasix (Furosemide) 40 Mg Tab 40 Mg PO DAILY [Zaditor] 0.025 Drop EACH EYE DAILY Atorvastatin (Atorvastatin Calcium) 40 Mg Tab 40 Mg PO DAILY D3 (Cholecalciferol) 1,000 Unit Tab 1,000 Units PO DAILY Flonase Allergy Relief Nasal [place] (Fluticasone Nasal [place]) 50 Mcg/Act [place] 1 [place] EACH NARE DAILY Lisinopril 2.5 Mg Tab 2.5 Mg PO DAILY Zoloft (Sertraline HCl) 50 Mg Tab 50 Mg PO DAILY Nitroglycerin SL (Nitroglycerin) 0.4 Mg Subl 0.4 Mg SL DIRECTED PRN ONE TABLET UNDER THE TONGUE NEEDED FOR CHEST PAIN, MAY REPEAT EVERY FIVE MINUTES FOR A TOTAL OF 3 DOSES OR CALL 911 IF NO RELIEF Aspirin 81 Mg Tabdr 81 Mg PO DAILY Combivent Respimat Inh (Ipratropium-Albuterol Inh) 20-100 Custodial/Act Aero 2 Puff INH BID Tresiba Flextouch Pen Inj (Insulin Degludec Inj) 300 unit/3 ML Pen 95 Units SQ DAILY . Allergies: Coded Allergies: No Known Allergies (Unverified , 04/22/16) Active Ordered Medications Current Medications IV Flush (NS Flush) 2 ml UNSCH PRN IVF FLUSH AFTER USING IV ACCESS; Start 05/17 at 19:45 IV Flush (NS Flush) 2 ml UNSCH PRN FLUSH FLUSH AFTER USING IV ACCESS; Start at 21:15 IV Flush (NS Flush) 2 ml BID FLUSH ; Start 05/18/16 at 09:00 Naloxone HCl (Narcan Inj) 0.4 mg UNSCH PRN IV SEE LABEL COMMENTS; Start at 21:15 Potassium Chloride 40 meq 40 meq ONCE ONCE PO Last administered on 05/17/16t 21:46; Start 05/17/16 at 21:15; Stop 05/17/16 at 21:16; Status DC Magnesium Sulfate/ Dextrose (Magnesium Sulfate 1 Gm Premix) 100 ml @ 100 mls/ hr ONCE ONCE IV Last administered on 05/17/16t 21:46; Start 05/17/16 at 21:15 ; Stop 05/17/16 at 22:14; Status DC Dextrose (D50w (Vial) Inj) 25 ml UNSCH PRN IV PUSH HYPOGLYCEMIA-SEE COMMENTS; Start 05/18/16 at 00:15 Glucagon (Glucagon Inj) 1 mg UNSCH PRN OTHER HYPOGLYCEMIA-SEE COMMENTS; Start 05/18/16 at 00:15 Insulin Aspart (NovoLOG SUPPLEMENTAL SCALE) 1 ACHS SLIDING SCALE SQ ; Start at 07:00 Albuterol/ Ipratropium (Duoneb Neb) 1 ampule Q4HR NEB PRN NEB shortness of breath/wheezing; Start 05/18/16 at 00:30 . Family History Hypertension and CHF runs in family Mother with borderline diabetes . Social History Tobacco: Has been a heavy smoker; two packs/day x 50 years - quit smoking one year ago Alcohol: A couple of beers daily; history of drinking 12 beers daily . Physical Exam Vital Signs Vital Signs Date Time Temp Pulse Resp B/P Pulse Ox O2 Delivery O2 Flow Rate FiO2 05/18/16 00:28 98.4 95 18 134/79 97 Room Air 05/18/16 00:00 98.0 74 21 147/78 98 05/17/16 21:51 98 18 145/80 92 Room Air 05/17/16 19:44 92 Room Air 05/17/16 19:44 97 18 135/79 92 Room Air 05/17/16 19:44 92 Room Air 05/17/16 19:41 95 18 94 Room Air 05/17/16 19:36 99.2 95 18 161/85 92 Physical Exam GENERAL: This is a well-nourished, well-developed patient, in no apparent distress. SKIN: No rashes, ecchymoses or lesions. Cool and dry. Patient's facial skin flushed upon awakening. Multiple tattoos on arms and anterior torso. HEAD: Atraumatic. Normocephalic. EYES: No scleral icterus. No injection or drainage. ENT: Nose without bleeding, purulent drainage. NECK: Trachea midline. No JVD or lymphadenopathy. CARDIOVASCULAR: Regular rate and rhythm without murmurs, gallops, or rubs. RESPIRATORY: Clear to auscultation. Breath sounds equal bilaterally. No wheezes , rales, or rhonchi. GASTROINTESTINAL: Abdomen soft, non-tender, nondistended. No guarding. MUSCULOSKELETAL: Extremities without clubbing, cyanosis, or edema. No calf tenderness. NEUROLOGICAL: Awake and alert. Motor and sensory grossly within normal limits. Normal speech. . Laboratory Laboratory Tests Test 05/17/16 05/18/16 19:15 01:44 White Blood Count 9.4 7.6 Red Blood Count 4.57 4.37 Hemoglobin 14.1 13.4 Hematocrit 42.7 40.0 Mean Corpuscular Volume 93.5 91.6 Mean Corpuscular Hemoglobin 31.0 30.6 Mean Corpuscular Hemoglobin 33.1 33.4 Concent Red Cell Distribution Width 14.0 14.1 Platelet Count 150 145 Mean Platelet Volume 9.6 8.7 Neutrophils (%) (Auto) 69.4 69.2 Lymphocytes (%) (Auto) 17.8 17.6 Monocytes (%) (Auto) 9.4 9.8 Eosinophils (%) (Auto) 2.7 2.5 Basophils (%) (Auto) 0.7 0.9 Neutrophils # (Auto) 6.5 5.3 Lymphocytes # (Auto) 1.7 1.3 Monocytes # (Auto) 0.9 0.7 Eosinophils # (Auto) 0.3 0.2 Basophils # (Auto) 0.1 0.1 CBC Comment DIFF FINAL DIFF FINAL Differential Comment Prothrombin Time 11.7 Prothromb Time International 1.1 Ratio Activated Partial 26.9 Thromboplast Time Sodium Level 129 135 Potassium Level 3.6 4.0 Chloride Level 91 97 Carbon Dioxide Level 25.6 29.0 Anion Gap 12 9 Blood Urea Nitrogen 12 12 Creatinine 1.30 1.04 Estimat Glomerular Filtration 56 72 Rate Random Glucose 283 224 Calcium Level 8.2 8.4 Magnesium Level 1.7 Total Bilirubin 0.6 Aspartate Amino Transf 43 (AST/SGOT) Alanine Aminotransferase 57 (ALT/SGPT) Alkaline Phosphatase 94 Total Creatine Kinase 127 Creatine Kinase MB 3.3 Troponin I 0.12 0.13 B-Type Natriuretic Peptide 242 Total Protein 8.6 Albumin 3.5 Thyroid Stimulating Hormone 5.520 3rd Gen Result Diagram: 05/18/1614305/18/16143 Assessment and Plan Problem List: (1) Ventricular tachyarrhythmia ICD Code: I47.2 Status: Acute (2) AICD discharge ICD Code: Z45.02 Status: Acute (3) Type 2 diabetes mellitus ICD Code: E11.9 Status: Chronic (4) Elevated troponin ICD Code: R74.8 Status: Acute (5) COPD (chronic obstructive pulmonary disease) ICD Code: J44.9 Status: Chronic (6) Hyponatremia ICD Code: E87.1 Status: Acute (7) TSH elevation ICD Code: R94.6 Status: Acute (8) History of sleep apnea ICD Code: Z86.69 Status: Chronic Assessment and Plan Mr. Sutherland is a 65-year-old male with recent biventricular pacemaker and defibrillator in February [address] Dr. Davenport who presented to the emergency room on with complaint of his defibrillator firing twice in rapid succession. The [employer] underwriting sales representative evaluated the pacemaker in the ER and stated that the patient had 2 episodes of V. fib requiring defibrillation and an episode of V. fib last night that he had been paced out of. Ventricular fibrillation requiring defibrillation with AICD/pacemaker - Consult manager secondary - Magnesium 1.7, supplement ordered - Potassium 3.6, supplement ordered - Recheck BMP in a.m. and follow trends in electrolytes - Continuous cardiac telemetry to monitor for further arrhythmias - Heart healthy/1800 ADA conservative carb diet Type 2 diabetes mellitus - Admitting blood glucose 283 - Accu-Cheks before meals and at bedtime with low-dose NovoLog sliding scale coverage - Protocol for treatment of hypoglycemia ordered - Continue home medications for diabetes - Monitor trends and blood glucose and adjust treatments as indicated Troponin I elevation likely secondary to AICD discharge - will trend troponins to r/o ACS COPD - Duonebulizers q4h PRN shortness of breath/wheezing Hyponatremia likely secondary to cirrhosis - Admission sodium is 129 which appears stable compared with previous hospitalization levels - Will repeat BMP in a.m. and follow trends in sodium levels TSH elevation - TSH elevated at 5.520 - check free t3 and t4; follow results History of sleep apnea - Was previously unable to tolerate mask many years ago - Educated regarding advancement of sleep apnea treatment - Recommended the patient follow up with primary care physician as an outpatient due to referral for sleep study/stacker tender - Educated regarding importance of management of sleep apnea with his significant cardiac comorbidities DVT prophylaxis - Lovenox 40 mg subq q24h Written by Chhaya Bass, acting as scribe for Dr. Bey on 05/18/16 at 04:03. The documentation accurately reflects the work performed [id number] by me on at 0403 Discussed Condition With ER physician, RN, and patient . Chhaya Bass May 18, 2016 04:09 Jerson Bey MD May 18, 2016 08:01
[2016-05-18 04:56] LABS: FREE T3 2.55 PG/ML (2.18-3.98); FREE T4 1.2 NG/DL (0.76-1.46)
[2016-05-18] MEDS: ENOXAPARIN SODIUM 40 MG/0.4 ML SYRINGE SQ SCH (05:58)
[2016-05-18] MEDS: INSULIN ASPART SUPPLEMENTAL SCALE SQ SCH ×4 (06:12→20:20)
[2016-05-18] MEDS: ATORVASTATIN 40 MG TAB PO SCH (08:30)
[2016-05-18] MEDS: ASPIRIN EC 81 MG TABEC PO SCH (08:30)
[2016-05-18] MEDS: SERTRALINE HCL 50 MG TAB PO SCH (08:30)
[2016-05-18] MEDS: LISINOPRIL 5 MG TAB PO SCH (08:31)
[2016-05-18] MEDS: THIAMINE HCL 100 MG TAB PO SCH (08:31)
[2016-05-18] MEDS: PANTOPRAZOLE SOD 40 MG DELAYED RELEASE TAB PO SCH (08:31)
[2016-05-18] MEDS: SODIUM CHLORIDE 0.9% FLUSH 5 ML FLUSH FLUSH SCH ×2 (08:32→20:20)
[2016-05-18] MEDS: FLUTICASONE PROPIONATE 50 MCG/ACT 16 GM NASAL SPRAY EACH NARE SCH (08:32)
[2016-05-18] MEDS ORDERED: MAGNESIUM SULFATE 1 GM PREMIX 100 ML IV ONE (08:45)
[2016-05-18] MEDS ORDERED: INSULIN DEGLUDEC SQ SCH (09:00)
[2016-05-18] MEDS ORDERED: ZADITOR EACH EYE SCH (09:00)
--- NOTE | 2016-05-18 09:39 | HHI.PR ---
Subjective Remarks Follow up for Vfib with AICD firing. The patient reports no acute events overnight. He denies any chest pains, palpitations, shortness of breath, diaphoresis, nausea/vomiting. He denies noticing any symptoms just prior to the AICD firing yesterday. The patient reports he saw his timber sizer operator Dr. Mota 1 week ago and he stopped his Coreg because he was experiencing dizziness and thought it might be related to bradycardia, however the patient has still had episodes of dizziness after Coreg was discontinued. Dizziness not associated with AICD firing. He has no other medical complaints at this time. Objective Vitals Vital Signs Date Time Temp Pulse Resp B/P Pulse Ox O2 Delivery O2 Flow Rate FiO2 05/18/16 07:42 97.7 87 16 131/75 05/18/16 04:29 98.0 89 18 142/86 98 05/18/16 00:28 98.4 95 18 134/79 97 Room Air 05/18/16 00:00 98.0 74 21 147/78 98 05/17/16 21:51 98 18 145/80 92 Room Air 05/17/16 19:44 92 Room Air 05/17/16 19:44 97 18 135/79 92 Room Air 05/17/16 19:44 92 Room Air 05/17/16 19:41 95 18 94 Room Air 05/17/16 19:36 99.2 95 18 161/85 92 I/O 05/17/16 05/17/16 05/17/16 05/18/16 05/18/16 05/18/16 07:00 15:00 23:00 07:00 15:00 23:00 Output Total 450 ml Balance -450 ml Output Urine Total 450 ml Result Diagram: 05/18/16 0144 05/18/16 014 Objective Remarks GENERAL: Well-nourished, well-developed pleasant male patient in [facility]. SKIN: Warm and dry. No rash. HEAD: Normocephalic. Atraumatic. EYES: Pupils equal and round. No scleral icterus. No injection or drainage. ENT: No nasal bleeding or discharge. Mucous membranes pink and moist. NECK: Supple. Trachea midline. CARDIOVASCULAR: Regular rate and rhythm. S1, S2 noted. No murmur appreciated. RESPIRATORY: No accessory muscle use. Clear to auscultation. Breath sounds equal bilaterally. GASTROINTESTINAL: Abdomen soft, non-tender, nondistended. Normoactive bowel sounds x4. MUSCULOSKELETAL: No obvious deformities. Extremities without clubbing, cyanosis , or edema. NEUROLOGICAL: Awake and alert. No obvious cranial nerve deficits. Motor grossly within normal limits. Normal speech. PSYCHIATRIC: Appropriate mood and affect; insight and judgment normal. Medications and IVs Current Medications Medications (Trade) Dose Ordered Sig/Yakelin Route Start Time Stop Time Status Last Admin (NS Flush) 2 ml UNSCH PRN FLUSH 05/17/16 21:15 (NS Flush) 2 ml BID FLUSH 05/18/16 09:00 05/18/16 08:32 (Narcan Inj) 0.4 mg UNSCH PRN IV 05/17/16 21:15 (D50w (Vial) Inj) 25 ml UNSCH PRN IV PUSH 05/18/16 00:15 (Glucagon Inj) 1 mg UNSCH PRN OTHER 05/18/16 00:15 (Lovenox Inj) 40 mg Q24H SQ 05/18/16 06:00 05/18/16 05:58 (Ecotrin Ec) 81 mg DAILY PO 05/18/16 09:00 05/18/16 08:30 (Lipitor) 40 mg DAILY PO 05/18/16 09:00 05/18/16 08:30 (Flonase Kahlil Spr) 1 spray DAILY EACH NARE 05/18/16 09:00 (Prinivil) 2.5 mg DAILY PO 05/18/16 09:00 05/18/16 08:31 (Protonix) 40 mg DAILY PO 05/18/16 09:00 05/18/16 08:31 (Zoloft) 50 mg DAILY PO 05/18/16 09:00 05/18/16 08:30 (Vitamin B1) 100 mg DAILY PO 05/18/16 09:00 05/18/16 08:31 Non-Formulary Medication 95 units DAILY SQ 05/18/16 09:00 UNV Non-Formulary Medication 0.025 drop DAILY EACH EYE 05/18/16 09:00 UNV Urinary Catheter: No Vascular Central Line Catheter: No A/P Problem List: (1) Ventricular tachyarrhythmia ICD Code: I47.2 Status: Acute (2) AICD discharge ICD Code: Z45.02 Status: Acute (3) Type 2 diabetes mellitus ICD Code: E11.9 Status: Chronic (4) Elevated troponin ICD Code: R74.8 Status: Acute (5) COPD (chronic obstructive pulmonary disease) ICD Code: J44.9 Status: Chronic (6) Hyponatremia ICD Code: E87.1 Status: Acute (7) TSH elevation ICD Code: R94.6 Status: Acute (8) History of sleep apnea ICD Code: Z86.69 Status: Chronic Assessment and Plan 65-year-old male with recent biventricular pacemaker and defibrillator in February[address] Davenport who presents with complaint of his defibrillator firing twice in rapid succession. The [employer] retail representative evaluated the pacemaker in the ER and stated that the patient had 2 episodes of V. fib requiring defibrillation and an episode of V. fib last night that he had been paced out of. Ventricular fibrillation requiring defibrillation x2 with AICD/pacemaker: of note, Dr. Mota discontinued patient's Coreg 1 week ago secondary to episodes of dizziness thought to be related to bradycardia - Consult timber sizer operator, patient known to Dr. Mota and Dr. Davenport - Magnesium 1.7, Potassium 3.6, given po and IV replacement, monitor. - Keep K+ > 4.0, Mg > 2.0. - Monitor on telemetry - consider restarting BB or antiarrhythmic medication Type 2 diabetes mellitus - Admitting blood glucose 283 - Monitor Accu-Cheks and cover with SSI - Continue home insulin Troponin I elevation likely secondary to AICD discharge - trended troponins flat, 0.12, 0.13, 0.11 COPD, does not appear to be in exacerbation - Duonebulizers q4h PRN shortness of breath/wheezing Hyponatremia likely secondary to cirrhosis - Sodium 129, appears stable compared with previous hospitalization levels - Repeat Na 135, resolved TSH elevation: TSH 5.520 - T3/T4 wnl, outpatient f/up with PCP History of sleep apnea - Was previously unable to tolerate mask many years ago - Educated regarding advancement of sleep apnea treatment, importance of management of sleep apnea with his significant cardiac comorbidities - Recommended the patient follow up with PCP as an outpatient due to referral for sleep study/clinical documentation improvement specialist DVT prophylaxis - Lovenox 40 mg subq q24h Written by Idalia Barron, acting as scribe for Dr. Arrieta on 05/18/16 at 09:35. The documentation accurately reflects the work performed [id number] by me on at 09:35. Idalia Barron PA-C May 18, 2016 09:39 Olga Arrieta DO May 18, 2016 16:52
--- NOTE | 2016-05-18 14:27 | EKG ---
Date Performed: 05/17/2016 Time Performed: 19:38:27 PTAGE: 65 years EKG: ELECTRONIC VENTRICULAR PACEMAKER ABNORMAL RHYTHM ECG PREVIOUS TRACING : 04/22/2016 08.21 DOCTOR: Rogelio Skinner Interpretating Date/Time 05/18/2016 14:25:28
[2016-05-19 00:30] VITALS: BP 140/77; PULSE 87; RESP 18; TEMP 97.9; O2SAT 98
[2016-05-19 03:53] VITALS: BP 129/79; PULSE 78; RESP 18; TEMP 98.8; O2SAT 97
[2016-05-19] MEDS: INSULIN ASPART SUPPLEMENTAL SCALE SQ SCH (06:17)
[2016-05-19] MEDS: ENOXAPARIN SODIUM 40 MG/0.4 ML SYRINGE SQ SCH (06:17)
[2016-05-19 07:51] LABS: BICARBONATE 29.5 MEQ/L (21.0-32.0); POTASSIUM 3.9 MEQ/L (3.5-5.1)
[2016-05-19 07:56] VITALS: BP 117/84; PULSE 86; RESP 16; TEMP 98; O2SAT 95
[2016-05-19 08:00] VITALS: PULSE 83
[2016-05-19] MEDS: SERTRALINE HCL 50 MG TAB PO SCH (09:00)
[2016-05-19] MEDS: PANTOPRAZOLE SOD 40 MG DELAYED RELEASE TAB PO SCH (09:06)
[2016-05-19] MEDS: SODIUM CHLORIDE 0.9% FLUSH 5 ML FLUSH FLUSH SCH (09:06)
[2016-05-19] MEDS: ATORVASTATIN 40 MG TAB PO SCH (09:06)
[2016-05-19] MEDS: ASPIRIN EC 81 MG TABEC PO SCH (09:06)
[2016-05-19] MEDS: FLUTICASONE PROPIONATE 50 MCG/ACT 16 GM NASAL SPRAY EACH NARE SCH (09:06)
[2016-05-19] MEDS: LISINOPRIL 5 MG TAB PO SCH (09:07)
[2016-05-19] MEDS: THIAMINE HCL 100 MG TAB PO SCH (09:07)
--- NOTE | 2016-05-19 09:54 | MB ---
cc: MYKE PARSONS YU H. M.D. SEIDE, HANSCY M.D. DATE OF CONSULTATION: 05/18/2016 REASON FOR CONSULTATION Ventricular fibrillation, defibrillatory shock. HISTORY OF PRESENT ILLNESS Mr. Sutherland is a 65-year-old gentleman with a history of coronary artery disease and cardiomyopathy. He had a previous VT ablation around 11 years ago. He had an admission in January 2016 due to ventricular tachycardia requiring defibrillatory shock. The gentleman is again admitted today due to defibrillatory shock. The chart was reviewed. The patient was evaluated. ALLERGIES None. SOCIAL HISTORY Negative for smoking and drinking. FAMILY HISTORY Noncontributory to his current medical condition. MEDICATIONS 1. Magnesium. 2. Aspirin. 3. Lipitor. 4. Lovenox. 5. Flonase. 6. Lisinopril. 7. Insulin. 8. Protonix. 9. Sertraline. 10.Thiamine. REVIEW OF SYSTEMS He refers no chest pain or chest discomfort. No vomiting. No fever. PHYSICAL EXAMINATION GENERAL: Alert, fully oriented. VITAL SIGNS: Blood pressure 121/74, pulse 78, respiratory rate 18. LUNGS: Ventilated. CARDIOVASCULAR: S1, S2. No gallop. No murmur. ABDOMEN: Soft. No mass. No bruit. Obese. EXTREMITIES: No edema. ELECTROCARDIOGRAM Electrocardiogram: AV sequential pacing. LABORATORY DATA Hemoglobin 13.4, white blood cell count 7.6. Potassium 4.0, creatinine 1.04. Troponin 0.11. BNP 242. ASSESSMENT AND RECOMMENDATION Mr. Sutherland has ventricular tachycardia. Defibrillatory shocks were appropriate. He was seen in January 2016. At that time a nuclear stress study showed large inferior ischemia extending to the apex, ejection 25%. Electrophysiology study and ventricular tachycardia ablation was discussed with him. The gentleman was very wary and refused the procedure. Again, he was admitted due to ventricular tachycardia. As mentioned before shocks were appropriate. No electrolyte imbalance. My recommendation is to continue with current management. The biventricular pacer was interrogated. The gentleman can be discharged home in the morning if it is okay with the managing team. He can be followed as an outpatient. I had a long conversation with him and his today. Again as mentioned before he refused to proceed with VT ablation. MD GINNY Zambrano/JIMENA /10:43 PM /9:46 AM
[2016-05-19 11:13] VITALS: BP 124/82; PULSE 88; RESP 16; TEMP 97.9; O2SAT 95
--- NOTE | 2016-05-19 11:27 | HHI.PR ---
Subjective Remarks Follow up for Vfib/VT s/p AICD firing. The patient reports no further events overnight. Denies any chest pains. Discussed the option of ablation again and the patient wants to proceed with this. He believes there was a misunderstanding at the last admission. He has no other medical complaints at this time. Discussed with Dr. Davenport, recommended discharge home with outpatient f/up in 1 week. Objective Vitals Vital Signs Date Time Temp Pulse Resp B/P Pulse Ox O2 Delivery O2 Flow Rate FiO2 05/19/16 11:13 97.9 88 16 124/82 95 05/19/16 08:00 83 05/19/16 07:56 98.0 86 16 117/84 95 05/19/16 03:53 98.8 78 18 129/79 97 05/19/16 00:30 97.9 87 18 140/77 98 05/18/16 23:40 98.2 83 16 139/84 95 05/18/16 21:32 98.6 87 18 131/76 93 05/18/16 15:36 98.1 78 16 121/74 96 05/18/16 12:06 97.3 88 16 140/83 96 I/O 05/18/16 05/18/16 05/18/16 05/19/16 05/19/16 05/19/16 07:00 15:00 23:00 07:00 15:00 23:00 Output Total 450 ml Balance -450 ml Output Urine Total 450 ml Result Diagram: 05/18/16 0144 05/19/16 0634 Objective Remarks GENERAL: Well-nourished, well-developed pleasant male patient in [facility]. SKIN: Warm and dry. No rash. HEAD: Normocephalic. Atraumatic. NECK: Supple. Trachea midline. CARDIOVASCULAR: Regular rate and rhythm. S1, S2 noted. No murmur appreciated. RESPIRATORY: No accessory muscle use. Clear to auscultation. Breath sounds equal bilaterally. GASTROINTESTINAL: Abdomen soft, non-tender, nondistended. Normoactive bowel sounds x4. MUSCULOSKELETAL: No obvious deformities. Extremities without clubbing, cyanosis , or edema. NEUROLOGICAL: Awake and alert. No obvious cranial nerve deficits. Motor grossly within normal limits. Normal speech. PSYCHIATRIC: Appropriate mood and affect; insight and judgment normal. Medications and IVs Current Medications Medications (Trade) Dose Ordered Sig/Yakelin Route Start Time Stop Time Status Last Admin (NS Flush) 2 ml UNSCH PRN FLUSH 05/17/16 21:15 (NS Flush) 2 ml BID FLUSH 05/18/16 09:00 05/19/16 09:06 (Narcan Inj) 0.4 mg UNSCH PRN IV 05/17/16 21:15 (D50w (Vial) Inj) 25 ml UNSCH PRN IV PUSH 05/18/16 00:15 (Glucagon Inj) 1 mg UNSCH PRN OTHER 05/18/16 00:15 (Lovenox Inj) 40 mg Q24H SQ 05/18/16 06:00 05/19/16 06:17 (Ecotrin Ec) 81 mg DAILY PO 05/18/16 09:00 05/19/16 09:06 (Lipitor) 40 mg DAILY PO 05/18/16 09:00 05/19/16 09:06 (Flonase Kahlil Spr) 1 spray DAILY EACH NARE 05/18/16 09:00 05/19/16 09:06 (Prinivil) 2.5 mg DAILY PO 05/18/16 09:00 05/19/16 09:07 (Protonix) 40 mg DAILY PO 05/18/16 09:00 05/19/16 09:06 (Zoloft) 50 mg DAILY PO 05/18/16 09:00 05/19/16 09:00 (Vitamin B1) 100 mg DAILY PO 05/18/16 09:00 05/19/16 09:07 Non-Formulary Medication 95 units DAILY SQ 05/18/16 09:00 UNV Non-Formulary Medication 0.025 drop DAILY EACH EYE 05/18/16 09:00 UNV Urinary Catheter: No Vascular Central Line Catheter: No A/P Problem List: (1) Ventricular tachyarrhythmia ICD Code: I47.2 Status: Acute (2) AICD discharge ICD Code: Z45.02 Status: Acute (3) Type 2 diabetes mellitus ICD Code: E11.9 Status: Chronic (4) Elevated troponin ICD Code: R74.8 Status: Acute (5) COPD (chronic obstructive pulmonary disease) ICD Code: J44.9 Status: Chronic (6) Hyponatremia ICD Code: E87.1 Status: Acute (7) TSH elevation ICD Code: R94.6 Status: Acute (8) History of sleep apnea ICD Code: Z86.69 Status: Chronic Assessment and Plan 65-year-old male with recent biventricular pacemaker and defibrillator in February[address] Davenport who presents with complaint of his defibrillator firing twice in rapid succession. The [employer] tax representative evaluated the pacemaker in the ER and stated that the patient had 2 episodes of V. fib requiring defibrillation and an episode of V. fib last night that he had been paced out of. Ventricular fibrillation requiring defibrillation x2 with AICD/pacemaker: of note, Dr. Mota discontinued patient's Coreg 1 week ago secondary to episodes of dizziness thought to be related to bradycardia - Consult director operating room, patient known to Dr. Mota and Dr. Davenport - Magnesium 1.7, Potassium 3.6, given po and IV replacement, monitor - Monitor on telemetry - consider restarting BB or antiarrhythmic medication - seen by Dr. Davenport, recommended ablation, however seems there was miscommunication, patient would definitely like to proceed with ablation therefore discussed again with Dr. Davenport who recommended the patient f/up as outpatient within 1 week, discussed with the patient who verbalized understanding. Type 2 diabetes mellitus - Admitting blood glucose 283 - Monitor Accu-Cheks and cover with SSI - Continue home insulin Troponin I elevation likely secondary to AICD discharge - trended troponins flat, 0.12, 0.13, 0.11 COPD, does not appear to be in exacerbation - Duonebulizers q4h PRN shortness of breath/wheezing Hyponatremia likely secondary to cirrhosis - Sodium 129, appears stable compared with previous hospitalization levels - Repeat Na 135, resolved TSH elevation: TSH 5.520 - T3/T4 wnl, outpatient f/up with PCP History of sleep apnea - Was previously unable to tolerate mask many years ago - Educated regarding advancement of sleep apnea treatment, importance of management of sleep apnea with his significant cardiac comorbidities - Recommended the patient follow up with PCP as an outpatient due to 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 Arrieta on 05/19/16 at 11:25. The documentation accurately reflects the work performed [id number] by me on at 11:25. Discharge patient to home Condition on discharge: Improved Heart healthy Diet as tolerated Ad Enma activity Rx written: No new medications. Follow-up with cardiology within 1 week. Discharge Planning Discharge patient to home Condition on discharge: Improved Heart Healthy/Diabetic Diet as tolerated Ad Enma activity Rx written: none Follow-up with primary care physician and director operating room Dr. Davenport within 1 week Idalia Barron PA-C May 19, 2016 11:27 Olga Arrieta DO May 19, 2016 18:23
--- NOTE | 2016-05-19 11:39 | HHI.DCPOC ---
Discharge Care Plan Diagnosis: (1) Ventricular fibrillation (2) AICD discharge Goals to Promote Your Health * To prevent worsening of your condition and complications * To maintain your health at the optimal level Directions to Meet Your Goals Take your medications as prescribed Follow your dietary instruction Follow activity as directed Keep your appointments as scheduled Take your immunizations and boosters as scheduled If your symptoms worsen call your PCP, if no PCP go to Urgent Care Center or Emergency Room Smoking is Dangerous to Your Health. Avoid second hand smoke Call the 24-hour hour crisis hotline for domestic abuse at Fe Villatoro PA-C May 19, 2016 11:39 Olga Arrieta DO May 19, 2016 18:22
--- NOTE | 2016-05-19 12:33 | PD.CARD.PN ---
Subjective Subjective Remarks Feels ok, no VT/VF/shocks overnight. Objective Medications Current Medications Medications (Trade) Dose Ordered Sig/Yakelin Route Start Time Stop Time Status Last Admin (NS Flush) 2 ml UNSCH PRN FLUSH 05/17/16 21:15 (NS Flush) 2 ml BID FLUSH 05/18/16 09:00 05/19/16 09:06 (Narcan Inj) 0.4 mg UNSCH PRN IV 05/17/16 21:15 (D50w (Vial) Inj) 25 ml UNSCH PRN IV PUSH 05/18/16 00:15 (Glucagon Inj) 1 mg UNSCH PRN OTHER 05/18/16 00:15 (Lovenox Inj) 40 mg Q24H SQ 05/18/16 06:00 05/19/16 06:17 (Ecotrin Ec) 81 mg DAILY PO 05/18/16 09:00 05/19/16 09:06 (Lipitor) 40 mg DAILY PO 05/18/16 09:00 05/19/16 09:06 (Flonase Kahlil Spr) 1 spray DAILY EACH NARE 05/18/16 09:00 05/19/16 09:06 (Prinivil) 2.5 mg DAILY PO 05/18/16 09:00 05/19/16 09:07 (Protonix) 40 mg DAILY PO 05/18/16 09:00 05/19/16 09:06 (Zoloft) 50 mg DAILY PO 05/18/16 09:00 05/19/16 09:00 (Vitamin B1) 100 mg DAILY PO 05/18/16 09:00 05/19/16 09:07 Non-Formulary Medication 95 units DAILY SQ 05/18/16 09:00 UNV Non-Formulary Medication 0.025 drop DAILY EACH EYE 05/18/16 09:00 UNV Vital Signs / I&O Vital Signs Date Time Temp Pulse Resp B/P Pulse Ox O2 Delivery O2 Flow Rate FiO2 05/19/16 11:13 97.9 88 16 124/82 95 05/19/16 08:00 83 05/19/16 07:56 98.0 86 16 117/84 95 05/19/16 03:53 98.8 78 18 129/79 97 05/19/16 00:30 97.9 87 18 140/77 98 05/18/16 23:40 98.2 83 16 139/84 95 05/18/16 21:32 98.6 87 18 131/76 93 05/18/16 15:36 98.1 78 16 121/74 96 I/O 05/18/16 05/18/16 05/18/16 05/19/16 05/19/16 05/19/16 07:00 15:00 23:00 07:00 15:00 23:00 Output Total 450 ml Balance -450 ml Output Urine Total 450 ml Physical Exam GENERAL: Well-nourished, well-developed patient. SKIN: Warm and dry. Healed AICD scar in LCW. HEAD: Normocephalic. EYES: No scleral icterus. No injection or drainage. NECK: Supple, trachea midline. No JVD or lymphadenopathy. CARDIOVASCULAR: Regular rate and rhythm without murmurs, gallops, or rubs. RESPIRATORY: Breath sounds equal bilaterally. No accessory muscle use. GASTROINTESTINAL: Abdomen soft, non-tender, nondistended. EXTREMITIES: No cyanosis, or edema. NEUROLOGICAL: Awake, alert, and oriented x 3. Non-focal. Laboratory Laboratory Tests Test 05/19/16 06:34 Sodium Level 132 MEQ/L Potassium Level 3.9 MEQ/L Chloride Level 95 MEQ/L Carbon Dioxide Level 29.5 MEQ/L Anion Gap 8 MEQ/L Blood Urea Nitrogen 10 MG/DL Creatinine 1.05 MG/DL Estimat Glomerular Filtration 71 ML/MIN Rate Random Glucose 229 MG/DL Calcium Level 8.7 MG/DL Magnesium Level 2.0 MG/DL Assessment and Plan Problem List: (1) CAD (coronary artery disease) Assessment and Plan: Negative nuclear stress showing prior anterior scar, EF 25 %. (2) Ventricular tachycardia Assessment and Plan: AICD shocks appropriate. BP low, difficult to suppress with medications. Discussed ablation with him and he now agrees to proceed, after previously refusing. D/W Dr. Davenport and he will d/w pt. (3) AICD discharge Assessment and Plan: No recurrence overnight. Interrogation reviewed by Dr. Davenport, shocks were appropriate and successfully converted him. Assessment and Plan Ablation to be d/w Dr. Davenport, scheduling per him. A&P d/w pt., Dr. Davenport. Problem Qualifiers (1) CAD (coronary artery disease): Qualified Code: I25.10 - Coronary artery disease involving seminole heart without angina pectoris, unspecified vessel or lesion type Jazz Godfrey May 19, 2016 12:33
--- NOTE | 2016-05-19 16:42 | EKG ---
Date Performed: 05/18/2016 Time Performed: 23:42:15 PTAGE: 65 years EKG: ELECTRONIC VENTRICULAR PACEMAKER Since previous tracing, no significant change noted ABNORM AL RHYTHM ECG PREVIOUS TRACING : 05/17/2016 19.38 DOCTOR: Vito Pete Interpretating Date/Time 05/19/2016 16:40:43
== END 2016-05-19 14:00 | disposition home or self-care (01) ==
LOC: NEPE 19:32 → NEDA 20:12 → NEPHCDU 05-18 00:39
PROVIDERS: ADMIT Hospitalist; ATTEND Hospitalist
DX: I47.2 Ventricular tachycardia (principal); I49.01 Ventricular fibrillation; Z95.810 Presence of automatic (implantable) cardiac defibrillator; R74.8 Abnormal levels of other serum enzymes; E87.1 Hypo-osmolality and hyponatremia; E03.9 Hypothyroidism, unspecified; R42 Dizziness and giddiness; I50.9 Heart failure, unspecified; I48.91 Unspecified atrial fibrillation; E78.5 Hyperlipidemia, unspecified; E11.9 Type 2 diabetes mellitus without complications; Z79.01 Long term (current) use of anticoagulants; F41.9 Anxiety disorder, unspecified; E78.00 Pure hypercholesterolemia, unspecified; J44.9 Chronic obstructive pulmonary disease, unspecified; K74.60 Unspecified cirrhosis of liver; R18.8 Other ascites; R51 Headache; I10 Essential (primary) hypertension; R25.1 Tremor, unspecified; Z79.899 Other long term (current) drug therapy; Z95.1 Presence of aortocoronary bypass graft; I73.9 Peripheral vascular disease, unspecified; Z87.891 Personal history of nicotine dependence; Z79.4 Long term (current) use of insulin
CPT/HCPCS: 80048; 80053; 82550; 82552; 82948; 83735; 83880; 84439; 84443; 84481; 84484; 85025; 85610; 85730; 93005; 99285; G0378; J1650; J1815; J3475

== ENCOUNTER 2016-05-25 15:03 | Inpatient (IN) | payer OTHER, MEDICARE ==
[2016-05-25] VITALS (8 sets, daily range): BP systolic 92–161; BP diastolic 56–87; PULSE 69–103; RESP 14–18; TEMP 97.8–98.2; O2SAT 95–98
[~2016-05-25] VITALS: Ht 167.6 cm; Wt 88.6 kg
[~2016-05-25 15:03] MED LIST changes: -ACET300T2 PO; -CARV6.25 PO; +FURO1TAB60 PO; -FURO1TAB62 PO; -MAGICADU2 SWISH-SWAL
--- NOTE | 2016-05-25 15:11 | PD ---
HPI Chief Complaint: Chest Pain Time Seen by Provider: 15:11 Travel History International Travel<30 days: No Contact w/Intl Traveler<30days: No Traveled to known affect area: No History of Present Illness HPI 65-year-old male came to the emergency room with history of chest pressure 8 out of 10 across his chest that started 45 minutes ago. Patient has strong history of coronary artery disease. He took 6 baby aspirin's and the pain did not subsided and he decided to come to the emergency room. Patient had his last cardiac catheterization/stent many years ago he says. He looks anxious and uncomfortable. There is no radiation of the pain size entire chest. No aggravating or relieving factors. He describes the pain as a pressure/ squeezing kind of sensation. Patient had tachycardia when he first came in. [facility] Past Medical History Narrative Medical List of his past medical, social and family history has been reviewed from the nursing note. Hx Anticoagulant Therapy: Yes (ASA) Arthritis: No Asthma: Yes Atrial Fibrillation: Yes Autoimmune Disease: No Blood Disorders: No Anxiety: Yes Depression: Yes Heart Rhythm Problems: Yes Cancer: No Cardiac Catheterization: Yes Cardiovascular Problems: Yes High Cholesterol: Yes Chemotherapy: No Chest Pain: Yes Congestive Heart Failure: Yes Cirrhosis: Yes COPD: Yes Cerebrovascular Accident: No Diabetes: Yes Diminished Hearing: No Endocrine: Yes Gastrointestinal Disorders: Yes (ASCITES) GERD: No Glaucoma: No Genitourinary: No Headaches: Yes Hepatitis: No Hiatal Hernia: No Hypertension: Yes Immune Disorder: No Implanted Vascular Access Dvce: Yes Kidney Stones: No Musculoskeletal: No Neurologic: Yes (tremors) Psychiatric: No Reproductive: No Respiratory: Yes (COPD ) Integumentary: No Immunizations Current: No Migraines: No Pneumonia: Yes Radiation Therapy: No Renal Failure: No Seizures: No Sickle Cell Disease: No Sleep Apnea: Yes Thyroid Disease: No Ulcer: No Past Surgical History Abdominal Surgery: Yes (hernia repair) AICD: Yes ([employer]) Arteriovenous Shunt: No Body Medical Devices: STENTS TAYA [employer] HE[employer], DEFIBRILLATOR Coronary Artery Bypass Graft: Yes (TRIPLE) Coronary Stent: Yes (X3) Ear Surgery: No Endocrine Surgery: No Eye Surgery: No Genitourinary Surgery: No Gynecologic Surgery: No Insulin Pump: No Joint Replacement: No Oral Surgery: No Pacemaker: Yes (AICD) Social History Alcohol Use: Yes (EVERYDAY) Tobacco Use: No (QUIT A YEAR AGO ) Substance Use: No Allergies-Medications (Allergen,Severity, Reaction): Coded Allergies: No Known Allergies (Unverified , 05/25/16) Comments No known drug allergies. Reported Meds & Prescriptions Reported Meds & Active Scripts Active Vitamin B-1 (Thiamine HCl) 100 Mg Tab 100 Mg PO DAILY 30 Days Pantoprazole (Pantoprazole Sodium) 40 Mg Tab 40 Mg PO DAILY Reported Entresto (Sacubitril-Valsartan) 24-26 Mg Tab 1 Tab PO BID ZyrTEC Itchy Eye Opth Drops (Ketotifen Opth Drops) 0.025% Drops 1 Drop EACH EYE DAILY Lasix (Furosemide) 40 Mg Tab 40 Mg PO DAILY Atorvastatin (Atorvastatin Calcium) 40 Mg Tab 40 Mg PO DAILY D3 (Cholecalciferol) 1,000 Unit Tab 1,000 Units PO DAILY Flonase Nasal [place] (Fluticasone Nasal [place]) 50 Mcg/Act [place] 2 [place] EACH NARE DAILY Nitroglycerin SL (Nitroglycerin) 0.4 Mg Subl 0.4 Mg SL DIRECTED ONE TABLET UNDER THE TONGUE NEEDED FOR CHEST PAIN, MAY REPEAT EVERY FIVE MINUTES FOR A TOTAL OF 3 DOSES OR CALL 911 IF NO RELIEF Aspirin 81 Mg Tabdr 81 Mg PO DAILY Combivent Respimat Inh (Ipratropium-Albuterol Inh) 20-100 Prison/Act Aero 2 Puff INH BID Tresiba Flextouch Pen Inj (Insulin Degludec Inj) 300 unit/3 ML Pen 70 Units SQ DAILY Narrative Medication List of his home medications reviewed from the nursing note. Review of Systems Except as stated in HPI: all other systems reviewed are Neg Physical Exam Narrative GENERAL: Awake, alert, obese, moderate distress SKIN: Warm and dry. HEAD: Atraumatic. Normocephalic. EYES: Pupils equal and round. No scleral icterus. No injection or drainage. ENT: No nasal bleeding or discharge. Mucous membranes pink and moist. NECK: Trachea midline. No JVD. CARDIOVASCULAR: Regular rate and rhythm. No murmur appreciated. RESPIRATORY: No accessory muscle use. Clear to auscultation. Breath sounds equal bilaterally. GASTROINTESTINAL: Abdomen soft, and distended. Hepatic and splenic margins were palpable. Liver was palpated 5 fingers below the costal margin. Spleen tip was across the midline towards the umbilicus MUSCULOSKELETAL: No obvious deformities. No clubbing. No cyanosis. No edema. NEUROLOGICAL: Awake and alert. No obvious cranial nerve deficits. Motor grossly within normal limits. Normal speech. PSYCHIATRIC: Appropriate mood and affect; insight and judgment normal. Data Data Last Documented VS Vital Signs Date Time Temp Pulse Resp B/P Pulse Ox O2 Delivery O2 Flow Rate FiO2 05/25/16 16:17 89 17 120/76 98 Nasal Cannula 2 05/25/16 15:05 97.8 Orders Electrocardiogram (05/25/16 15:17) Basic Metabolic Panel (Bmp) (05/25/16 15:17) Ckmb (Isoenzyme) Profile (05/25/16 15:17) Complete Blood Count With Diff (05/25/16 15:17) Magnesium (Mg) (05/25/16 15:17) Prothrombin Time / Inr (Pt) (05/25/16 15:17) Act Partial Throm Time (Ptt) (05/25/16 15:17) Troponin I (05/25/16 15:17) Chest, Single Ap (05/25/16 15:17) Ecg Monitoring (05/25/16 15:17) Bilateral Bp Monitoring (05/25/16 15:17) Iv Access Insert/Monitor (05/25/16 15:17) Oximetry (05/25/16 15:17) Oxygen Administration (05/25/16 15:17) Sodium Chloride 0.9% Flush (Ns Flush) (05/25/16 15:30) Nitroglycerin Sl (Nitrostat Sl) (05/25/16 15:30) CKMB (05/25/16 15:30) CKMB% (05/25/16 15:30) Admit Order (Ed Use Only) (05/25/16 16:33) Labs Laboratory Tests Test 05/25/16 15:30 White Blood Count 8.4 TH/MM3 Red Blood Count 4.38 MIL/MM3 Hemoglobin 13.5 GM/DL Hematocrit 40.9 % Mean Corpuscular Volume 93.4 FL Mean Corpuscular Hemoglobin 30.9 PG Mean Corpuscular Hemoglobin 33.1 % Concent Red Cell Distribution Width 14.0 % Platelet Count 125 TH/MM3 Mean Platelet Volume 9.2 FL Neutrophils (%) (Auto) 74.2 % Lymphocytes (%) (Auto) 13.4 % Monocytes (%) (Auto) 10.0 % Eosinophils (%) (Auto) 1.3 % Basophils (%) (Auto) 1.1 % Neutrophils # (Auto) 6.2 TH/MM3 Lymphocytes # (Auto) 1.1 TH/MM3 Monocytes # (Auto) 0.8 TH/MM3 Eosinophils # (Auto) 0.1 TH/MM3 Basophils # (Auto) 0.1 TH/MM3 CBC Comment DIFF FINAL Differential Comment Prothrombin Time 12.0 SEC Prothromb Time International 1.1 RATIO Ratio Activated Partial 25.6 SEC Thromboplast Time Sodium Level 128 MEQ/L Potassium Level 4.6 MEQ/L Chloride Level 88 MEQ/L Carbon Dioxide Level 29.6 MEQ/L Anion Gap 10 MEQ/L Blood Urea Nitrogen 15 MG/DL Creatinine 1.41 MG/DL Estimat Glomerular Filtration 51 ML/MIN Rate Random Glucose 311 MG/DL Calcium Level 9.4 MG/DL Magnesium Level 1.4 MG/DL Total Creatine Kinase 147 U/L Creatine Kinase MB 3.5 NG/ML Troponin I 0.05 NG/ML B-Type Natriuretic Peptide 86 PG/ML MDM Medical Decision Making Medical Screen Exam Complete: Yes Emergency Medical Condition: Yes Medical Record Reviewed: Yes Interpretation(s) Twelve-lead EKG was reviewed by me. Paced rhythm, PVCs. Heart rate of 97 bpm. Differential Diagnosis ACS, non-STEMI, nonspecific chest pain Narrative Course 4:29 PM awaiting for the blood test results. Patient will require admission given his history. He has history of nonalcoholic cirrhosis and portal hypertension. 4:35 PM troponin is within normal limit. I have admitted him to chest pain center given all his significant risk factors. Patient understands and agrees with the plan. 5 PM I was approached by the PA from the chest pain center to let me know that as per his attending Dr. Carney the patient was not suitable for the chest pain center and they wanted this patient to be admitted to the medical team Procedures EKG Prior to Arrival: Yes Diagnosis Primary Impression: Chest pain Qualified Code: R07.9 - Chest pain, unspecified type Additional Impressions: Hepatosplenomegaly Alcoholic cirrhosis Qualified Code: K70.30 - Alcoholic cirrhosis of liver without ascites Admitting Information Admitting Physician Requests: Observation Aisha Gibson MD May 25, 2016 15:11
[2016-05-25] MEDS ORDERED: SODIUM CHLORIDE 0.9% FLUSH 5 ML FLUSH IVF PRN (15:30)
[2016-05-25] MEDS: NITROGLYCERIN 0.4 MG SL 25 TABS/BTL SL SCH ×2 (15:35→15:42)
--- NOTE | 2016-05-25 15:41 | RADRPT ---
EXAM DATE/TIME: 05/25/2016 15:30 [facility] COMPARISON: CHEST SINGLE AP, April 22, 2016, 8:59. INDICATIONS : Chest pain MEDICAL HISTORY : Chronic obstructive pulmonary disease. SURGICAL HISTORY : CABG. Coronary artery stent. Pacemaker. ENCOUNTER: Initial ACUITY: 1 day PAIN SCORE: 6/10 LOCATION: Bilateral chest FINDINGS: Three-lead pacer is implanted in the left chest. The heart is minimally enlarged. Pulmonary vascula rity is normal. Portions of the bony skeleton visualized are unremarkable. CONCLUSION: 1. Three-lead pacer is implanted in the left chest. 2. The heart is minimally enlarged. 3. Pulmonary vascularity is normal. Enoc Gómez MD FACR on May 25, 2016 at 15:34 Board Certified Radiologist. This report was verified electronically.
[2016-05-25 16:00] LABS: AUTOMATED NEUTROPHIL # 6.2 TH/MM3 (1.8-7.7); BASOPHIL # 0.1 TH/MM3 (0-0.2); BASOPHIL % 1.1 % (0.0-2.0); EOSINOPHIL # 0.1 TH/MM3 (0-0.4); EOSINOPHIL % 1.3 % (0.0-4.0); HEMATOCRIT 40.9 % (39.0-51.0); HEMO FLAGS DIFF FINAL; LYMPH % 13.4 % (9.0-44.0); LYMPHOCYTE # 1.1 TH/MM3 (1.0-4.8); MEAN CELL VOLUME 93.4 FL (80.0-100.0); MEAN CORPUSCULAR HEMOGLOBIN 30.9 PG (27.0-34.0); MEAN CORPUSCULAR HGB CONC 33.1 % (32.0-36.0); NEUT % 74.2 % (16.0-70.0); PLATELET COUNT 125 TH/MM3 (150-450); RED BLOOD COUNT 4.38 MIL/MM3 (4.50-5.90); WHITE BLOOD COUNT 8.4 TH/MM3 (4.0-11.0)
[2016-05-25 16:05] LABS: APTT (PATIENT) 25.6 SEC (24.3-30.1); INTERNATIONAL NORMALIZED RATIO 1.1 RATIO
[2016-05-25] MEDS ORDERED: KETO0.02 EACH EYE (16:18)
[2016-05-25] MEDS ORDERED: SACU1TAB PO (16:18)
[2016-05-25 16:27] LABS: ANION GAP 10 MEQ/L (5-15); BICARBONATE 29.6 MEQ/L (21.0-32.0); BLOOD UREA NITROGEN 15 MG/DL (7-18); CHLORIDE 88 MEQ/L (98-107); CREATINE KINASE 147 U/L (39-308); GLOMERULAR FILTRATION RATE 51 ML/MIN (>89); MAGNESIUM 1.4 MG/DL (1.5-2.5); POTASSIUM 4.6 MEQ/L (3.5-5.1); SODIUM (NA) 128 MEQ/L (136-145)
[2016-05-25 16:40] LABS: CKMB 3.5 NG/ML (0.5-3.6)
[2016-05-25] MEDS ORDERED: SODIUM CHLORIDE 0.9% FLUSH 5 ML FLUSH IV PRN (17:45)
[2016-05-25] MEDS ORDERED: NITROGLYCERIN 0.4 MG SL 25 TABS/BTL SL PRN (17:45)
--- NOTE | 2016-05-25 19:36 | HHI.HP ---
[facility] Service [facility] Primary Care Physician Vencie Mota MD Admission Diagnosis chest pain, rule out ACS Diagnoses: Chief Complaint: Chest pain Travel History International Travel<30 Days: No Contact w/Intl Traveler <30 Da: No Traveled to Known Affected Are: No History of Present Illness 65 y/o male with a history of DM, CAD, CHF EF 20%, and COPD presented with complaints of burning chest comfort. He states he was going to see his primary care Dr today when he felt a burning pain across his chest, 11/05, with no radiation. He did have associated symptoms of nausea and dizziness. He states it lasted for 1 hour and he took 4-5 baby aspirins without any relief. He denies any fever, chills, or sob. He currently sees Dr. Davenport for cardiology, and Dr. Mota for PCP. Underwent Lexiscan in January 2016 with no ischemia Review of Systems Constitutional: COMPLAINS OF: Dizziness, DENIES: Fever, Chills Respiratory: DENIES: Cough, Sputum production, Shortness of breath Cardiovascular: COMPLAINS OF: Chest pain, DENIES: Palpitations, Dyspnea on Exertion, Lower Extremity Edema Gastrointestinal: COMPLAINS OF: Nausea, DENIES: Constipation, Diarrhea, Vomiting Genitourinary: DENIES: Hematuria Musculoskeletal: DENIES: Joint pain, Back pain, Neck pain Integumentary: DENIES: Rash Hematologic/lymphatic: DENIES: Lymphadenopathy Immunologic/allergic: DENIES: Urticaria Neurologic: DENIES: Headache, Localized weakness Past Family Social History Past Medical History Coronary artery disease status post CABG CHF with ejection fraction of 20% status post post AICD Anxiety Depression Hyperlipidemia Liver cirrhosis COPD Type 2 diabetes mellitus Sleep apnea Peripheral vascular disease Past Surgical History Cardiac stents in 2005 CABG 1997 Bilateral leg stents Removal of defibrillator with placement of biventricular pacemaker/ defibrillator placed March 26, 2016 Coronary artery bypass graft 3 Coronary stenting Hernia repair Paracentesis x 2 Reported Medications Reported Meds & Active Scripts Active Vitamin B-1 (Thiamine HCl) 100 Mg Tab 100 Mg PO DAILY 30 Days Pantoprazole (Pantoprazole Sodium) 40 Mg Tab 40 Mg PO DAILY Reported Entresto (Sacubitril-Valsartan) 24-26 Mg Tab 1 Tab PO BID ZyrTEC Itchy Eye Opth Drops (Ketotifen Opth Drops) 0.025% Drops 1 Drop EACH EYE DAILY Lasix (Furosemide) 40 Mg Tab 40 Mg PO DAILY Atorvastatin (Atorvastatin Calcium) 40 Mg Tab 40 Mg PO DAILY D3 (Cholecalciferol) 1,000 Unit Tab 1,000 Units PO DAILY Flonase Nasal Haines (Fluticasone Nasal Haines) 50 Mcg/Act Haines 2 Haines EACH NARE DAILY Nitroglycerin SL (Nitroglycerin) 0.4 Mg Subl 0.4 Mg SL DIRECTED ONE TABLET UNDER THE TONGUE NEEDED FOR CHEST PAIN, MAY REPEAT EVERY FIVE MINUTES FOR A TOTAL OF 3 DOSES OR CALL 911 IF NO RELIEF Aspirin 81 Mg Tabdr 81 Mg PO DAILY Combivent Respimat Inh (Ipratropium-Albuterol Inh) 20-100 Assisted/Act Aero 2 Puff INH BID Tresiba Flextouch Pen Inj (Insulin Degludec Inj) 300 unit/3 ML Pen 70 Units SQ DAILY Allergies: Coded Allergies: No Known Allergies (Unverified , 05/25/16) Active Ordered Medications Current Medications Medications (Trade) Dose Ordered Sig/Yakelin Route Start Time Stop Time Status Last Admin (NS Flush) 2 ml BID IV 05/25/16 21:00 (NS Flush) 2 ml UNSCH PRN IV 05/25/16 17:45 (Nitrostat Sl) 0.4 mg Q5M PRN SL 05/25/16 17:45 Family History Brother: [place], CHF Social History Tobacco use: former smoker Alcohol use: quit many years ago Illicit drug use: Denies Physical Exam Vital Signs Vital Signs Date Time Temp Pulse Resp B/P Pulse Ox O2 Delivery O2 Flow Rate FiO2 05/25/16 19:26 98.2 69 18 125/75 97 05/25/16 17:00 85 15 122/71 98 Nasal Cannula 2 05/25/16 16:17 89 17 120/76 98 Nasal Cannula 2 05/25/16 15:41 103 14 92/56 96 Nasal Cannula 2 05/25/16 15:14 96 Nasal Cannula 2 05/25/16 15:14 96 Nasal Cannula 2 05/25/16 15:14 16 95 Room Air 05/25/16 15:05 97.8 103 16 150/87 95 Physical Exam GENERAL: This is a well-nourished, well-developed patient, in no apparent distress. SKIN: No rashes, ecchymoses or lesions. Cool and dry. HEAD: Atraumatic. Normocephalic. No temporal or scalp tenderness. EYES: Pupils equal round and reactive. Extraocular motions intact. No scleral icterus. No injection or drainage. ENT: Nose without bleeding, purulent drainage or septal hematoma. Throat without erythema, tonsillar hypertrophy or exudate. Uvula midline. Airway patent. NECK: Trachea midline. No JVD or lymphadenopathy. Supple, nontender, no meningeal signs. CARDIOVASCULAR: Regular rate and rhythm without murmurs, gallops, or rubs. Pacemaker in place. RESPIRATORY: Clear to auscultation. Breath sounds equal bilaterally. No wheezes , rales, or rhonchi. GASTROINTESTINAL: Abdomen soft, non-tender, nondistended. No guarding. MUSCULOSKELETAL: Extremities without clubbing, cyanosis, or edema. No joint tenderness, effusion, or edema noted. No calf tenderness. Negative Homans sign bilaterally. NEUROLOGICAL: Awake and alert. Motor and sensory grossly within normal limits. Normal speech. Laboratory Laboratory Tests Test 05/25/16 15:30 White Blood Count 8.4 Red Blood Count 4.38 Hemoglobin 13.5 Hematocrit 40.9 Mean Corpuscular Volume 93.4 Mean Corpuscular Hemoglobin 30.9 Mean Corpuscular Hemoglobin 33.1 Concent Red Cell Distribution Width 14.0 Platelet Count 125 Mean Platelet Volume 9.2 Neutrophils (%) (Auto) 74.2 Lymphocytes (%) (Auto) 13.4 Monocytes (%) (Auto) 10.0 Eosinophils (%) (Auto) 1.3 Basophils (%) (Auto) 1.1 Neutrophils # (Auto) 6.2 Lymphocytes # (Auto) 1.1 Monocytes # (Auto) 0.8 Eosinophils # (Auto) 0.1 Basophils # (Auto) 0.1 CBC Comment DIFF FINAL Differential Comment Prothrombin Time 12.0 Prothromb Time International 1.1 Ratio Activated Partial 25.6 Thromboplast Time Sodium Level 128 Potassium Level 4.6 Chloride Level 88 Carbon Dioxide Level 29.6 Anion Gap 10 Blood Urea Nitrogen 15 Creatinine 1.41 Estimat Glomerular Filtration 51 Rate Random Glucose 311 Calcium Level 9.4 Magnesium Level 1.4 Total Creatine Kinase 147 Creatine Kinase MB 3.5 Troponin I 0.05 Result Diagram: 05/25/16 1530 05/25/16 1530 Imaging EKG tracing interpreted by me with paced rhythm Chest x-ray image interpreted by me with no acute pulmonary disease Last Impressions Chest X-Ray 05/25/16 1517 Signed Impressions: Service Date/Time: Wednesday, May 25, 2016 15:30 - CONCLUSION: 1. Three- lead pacer is implanted in the left chest. 2. The heart is minimally enlarged. 3. Pulmonary vascularity is normal. Enoc Gómez MD FACR Assessment and Plan Problem List: (1) Chest pain ICD Code: R07.9 Status: Acute (2) MAYELA (acute kidney injury) ICD Code: N17.9 Status: Acute (3) CHF (congestive heart failure) ICD Code: I50.9 Status: Chronic (4) Diabetes ICD Code: E11.9 Status: Chronic Assessment and Plan 65 y/o male with a history of DM, CAD, CHF EF 20%, and COPD presented with: Chest Pain. Lexiscan in January 2016 negative for ischemia. Atypical sounds like heartburn Labs: Troponin .05 EKG: paced ventricular rhythm -Serial troponin -Consult cardiology -ASA 325mg Daily -Morphine IV pain management -Start Pepcid PO BID -Monitor tele MAYELA Labs: creatine 1.4, baseline 1.0 -Trend labs in AM, due to low EF and CHF will hold off with IV hydration -Hold diuretics for now Magnesium Labs: Magnesium 1.4 -Supplement ordered, and scheduled every 12 hours -Labs in a.m. Pseudohyponatremia, likely due to hyperglycemia Labs: Sodium 128 -Monitor labs in a.m. Diabetes, chronic -ACCU checks AC/HS with SSI -Diabetic diet DVT prophylaxis: Heparin Written by Kristie MEJÍA, acting as scribe for Dr. Loving on 05/25/16 at 1940. The documentation accurately reflects the work performed [id number] and decisions made by me and the physician Dr Loving on 05/25/16. The documentation accurately reflects the work performed [id number] by me on at 22:44. Code Status Full Discussed Condition With 0 Physician Certification Order for Inpatient Services The services are ordered in accordance with Medicare regulations or non- Medicare payer requirements, as applicable. In the case of services not specified as inpatient-only, they are appropriately provided as inpatient services in accordance with the 2-midnight benchmark. days is the estimated time the patient will need to remain in the hospital, assuming treatment plan goals are met and no additional complications. Problem Qualifiers (1) Chest pain: Qualified Code: R07.9 - Chest pain, unspecified type (2) Diabetes: Kristie Huang May 25, 2016 19:35 Jacques Loving MD May 25, 2016 22:40
[2016-05-25] MEDS ORDERED: MAGNESIUM OXIDE 400 MG TAB PO ONE (20:00)
[2016-05-25] MEDS ORDERED: MORPHINE SULFATE 4 MG/ML INJ IV PRN (20:00)
[2016-05-25] MEDS ORDERED: GLUCAGON 1 MG/ML VIAL OTHER PRN (20:00)
[2016-05-25] MEDS ORDERED: CALCIUM CARBONATE 500 MG CHEWABLE TAB CHEW PRN (20:00)
[2016-05-25] MEDS ORDERED: SODIUM CHLORIDE 0.9% FLUSH 5 ML FLUSH FLUSH PRN (20:00)
[2016-05-25] MEDS ORDERED: ONDANSETRON HCL 4 MG/2 ML VIAL IVP PRN (20:00)
[2016-05-25] MEDS ORDERED: SENNOSIDES 8.6 MG TAB PO PRN (20:00)
[2016-05-25] MEDS ORDERED: ACETAMINOPHEN/HYDROcodone 325 MG/5 MG TAB PO PRN (20:00)
[2016-05-25] MEDS ORDERED: BISACODYL 10 MG SUPP PR PRN (20:00)
[2016-05-25] MEDS ORDERED: NALOXONE HCL 0.4 MG/ML AMP IV PRN (20:00)
[2016-05-25] MEDS ORDERED: DEXTROSE 50% IN WATER 50 ML VIAL(D50) IV PUSH PRN (20:00)
[2016-05-25] MEDS ORDERED: ACETAMINOPHEN/HYDROcodone 325 MG/7.5 MG TAB PO PRN (20:00)
[2016-05-25] MEDS ORDERED: ACETAMINOPHEN 325 MG TAB PO PRN ×2 (20:00)
[2016-05-25] MEDS ORDERED: SODIUM CHLORIDE 0.9% FLUSH 5 ML FLUSH IV SCH (21:00)
[2016-05-25] MEDS ORDERED: IPRATROPIUM ALBUTEROL INH SCH (21:00)
[2016-05-25] MEDS: SODIUM CHLORIDE 0.9% FLUSH 5 ML FLUSH FLUSH SCH (21:00)
[2016-05-25] MEDS: DOCUSATE SODIUM 100 MG CAP PO SCH (21:38)
[2016-05-25] MEDS: FAMOTIDINE 20 MG TAB PO SCH (21:38)
[2016-05-25] MEDS: HEPARIN SODIUM - SQ 10,000 UNITS/ML VIAL SQ SCH (21:39)
[2016-05-25] MEDS: INSULIN ASPART SUPPLEMENTAL SCALE SQ SCH (21:39)
[2016-05-26] VITALS (9 sets, daily range): BP systolic 110–133; BP diastolic 65–75; PULSE 52–88; RESP 17–18; TEMP 97.7–98.4; O2SAT 94–97
[2016-05-26 04:13] LABS: BICARBONATE 33.1 MEQ/L (21.0-32.0); MAGNESIUM 1.5 MG/DL (1.5-2.5); POTASSIUM 3.4 MEQ/L (3.5-5.1)
[2016-05-26] MEDS: INSULIN ASPART SUPPLEMENTAL SCALE SQ SCH ×4 (06:22→20:50)
[2016-05-26] MEDS ORDERED: NON-FORMULARY DRUG (Ketotifen Opth Drops (ZyrTEC Itchy Eye Opth Drops) 1 DROP) EACH EYE SCH (09:00)
[2016-05-26] MEDS ORDERED: INSULIN DEGLUDEC SQ SCH (09:00)
[2016-05-26] MEDS ORDERED: ASPIRIN EC 81 MG TABEC PO SCH (09:00)
[2016-05-26] MEDS: CHOLECALCIFEROL (VIT D3) 1000 UNIT TAB PO SCH (09:10)
[2016-05-26] MEDS: ATORVASTATIN 40 MG TAB PO SCH (09:10)
[2016-05-26] MEDS: FLUTICASONE PROPIONATE 50 MCG/ACT 16 GM NASAL SPRAY EACH NARE SCH (09:10)
[2016-05-26] MEDS: MAGNESIUM OXIDE 400 MG TAB PO SCH ×2 (09:10→20:48)
[2016-05-26] MEDS: SODIUM CHLORIDE 0.9% FLUSH 5 ML FLUSH FLUSH SCH ×2 (09:11→20:50)
[2016-05-26] MEDS: ASPIRIN EC 325 MG TABEC PO SCH (09:11)
[2016-05-26] MEDS: HEPARIN SODIUM - SQ 10,000 UNITS/ML VIAL SQ SCH ×2 (09:11→20:49)
[2016-05-26] MEDS: DOCUSATE SODIUM 100 MG CAP PO SCH ×2 (09:11→20:49)
[2016-05-26] MEDS: FAMOTIDINE 20 MG TAB PO SCH ×2 (09:11→20:49)
[2016-05-26] MEDS: THIAMINE HCL 100 MG TAB PO SCH (09:11)
--- NOTE | 2016-05-26 10:47 | HHI.PR ---
Subjective Remarks Follow-up Atypical chest pain 05/26/16-patient seen and examined; currently a history of chest pain and denies any shortness of breath. Objective Vitals Vital Signs Date Time Temp Pulse Resp B/P Pulse Ox O2 Delivery O2 Flow Rate FiO2 05/26/16 07:24 97.7 52 17 133/66 96 05/26/16 04:11 88 05/26/16 03:20 98.4 88 18 114/70 97 05/25/16 23:44 97.8 79 18 161/75 97 05/25/16 22:49 83 05/25/16 19:26 98.2 69 18 125/75 97 05/25/16 17:00 85 15 122/71 98 Nasal Cannula 2 05/25/16 16:17 89 17 120/76 98 Nasal Cannula 2 05/25/16 15:41 103 14 92/56 96 Nasal Cannula 2 05/25/16 15:14 96 Nasal Cannula 2 05/25/16 15:14 96 Nasal Cannula 2 05/25/16 15:14 16 95 Room Air 05/25/16 15:05 97.8 103 16 150/87 95 Result Diagram: 05/25/16 1530 05/26/16 0319 Imaging Last Impressions Chest X-Ray 05/25/16 1517 Signed Impressions: Service Date/Time: Wednesday, May 25, 2016 15:30 - CONCLUSION: 1. Three- lead pacer is implanted in the left chest. 2. The heart is minimally enlarged. 3. Pulmonary vascularity is normal. Enoc Gómez MD FACR Objective Remarks GENERAL: NAD SKIN: Warm and dry. HEAD: Normocephalic. EYES: No scleral icterus. No injection or drainage. NECK: Supple, trachea midline. No JVD or lymphadenopathy. CARDIOVASCULAR: Regular rate and rhythm without murmurs, gallops, or rubs. RESPIRATORY: Breath sounds equal bilaterally. No accessory muscle use. GASTROINTESTINAL: Abdomen soft, non-tender, nondistended. MUSCULOSKELETAL: No cyanosis, or edema. BACK: Nontender without obvious deformity. No CVA tenderness. A/P Problem List: (1) Chest pain ICD Code: R07.9 Status: Acute (2) MAYELA (acute kidney injury) ICD Code: N17.9 Status: Acute (3) CHF (congestive heart failure) ICD Code: I50.9 Status: Chronic (4) Diabetes ICD Code: E11.9 Status: Chronic Assessment and Plan 65-year-old male with Atypical Chest Pain. Lexiscan in January 2016 negative for ischemia. Serial cardiac enzyme and EKG is unremarkable although cardiology consultation pending. Continue with treatment. MAYELA: Renal indices Improving and continue to monitor and avoid all nephrotoxic drugs Hypomagnesemia: Replace electrolyte and monitor Pseudohyponatremia, likely due to hyperglycemia Labs: Sodium 128 -Monitor labs in a.m. Diabetes, chronic -ACCU checks AC/HS with SSI -Diabetic diet DVT prophylaxis: Heparin Problem Qualifiers (1) Chest pain: Qualified Code: R07.9 - Chest pain, unspecified type (2) Diabetes: Titus Solis MD May 26, 2016 10:47
--- NOTE | 2016-05-26 14:19 | EKG ---
Date Performed: 05/25/2016 Time Performed: 15:14:47 PTAGE: 65 years EKG: ELECTRONIC VENTRICULAR PACEMAKER Compared to prior tracing no significant change PREVIOUS TRACING : 05/18/2016 23.42 DOCTOR: Schuyler Duong Interpretating Date/Time 05/26/2016 14:18:39
--- NOTE | 2016-05-26 14:19 | EKG ---
Date Performed: 05/25/2016 Time Performed: 20:33:22 PTAGE: 65 years EKG: ELECTRONIC VENTRICULAR PACEMAKER Compared to the PREVIOUS TRACING , ventricular ectopy is new, otherwise no significant change PREVIOUS TR ACIN05/25/2016 15.14 DOCTOR: Schuyler Duong Interpretating Date/Time 05/26/2016 14:19:05
[2016-05-27 03:33] VITALS: BP 114/67; PULSE 67; RESP 20; TEMP 98.3; O2SAT 95
[2016-05-27] MEDS: INSULIN ASPART SUPPLEMENTAL SCALE SQ SCH (06:05)
[2016-05-27 08:00] VITALS: BP 102/59; PULSE 79; PULSE 81; RESP 18; TEMP 97.4; O2SAT 97
--- NOTE | 2016-05-27 08:20 | HHI.PR ---
Subjective Remarks Follow-up Atypical chest pain 05/26/16-patient seen and examined; currently a history of chest pain and denies any shortness of breath. 05/27/16-patient seen and examined, denies any chest pain 48 hours. ACS ruled out per protocol. Patient states that he has an appointment with cardiology today therefore would rather be discharged. Objective Vitals Vital Signs Date Time Temp Pulse Resp B/P Pulse Ox O2 Delivery O2 Flow Rate FiO2 05/27/16 03:33 98.3 67 20 114/67 95 05/26/16 23:39 98.4 79 18 110/67 94 05/26/16 23:38 05/26/16 21:41 95 05/26/16 20:06 98.4 86 18 132/75 95 05/26/16 17:52 81 05/26/16 15:49 98.0 65 18 130/69 94 05/26/16 11:25 98.1 69 18 126/65 94 Result Diagram: 05/25/16 1530 05/26/16 0319 Objective Remarks GENERAL: NAD SKIN: Warm and dry. HEAD: Normocephalic. EYES: No scleral icterus. No injection or drainage. NECK: Supple, trachea midline. No JVD or lymphadenopathy. CARDIOVASCULAR: Regular rate and rhythm without murmurs, gallops, or rubs. RESPIRATORY: Breath sounds equal bilaterally. No accessory muscle use. GASTROINTESTINAL: Abdomen soft, non-tender, nondistended. MUSCULOSKELETAL: No cyanosis, or edema. BACK: Nontender without obvious deformity. No CVA tenderness. A/P Problem List: (1) Chest pain ICD Code: R07.9 Status: Acute (2) MAYELA (acute kidney injury) ICD Code: N17.9 Status: Acute (3) CHF (congestive heart failure) ICD Code: I50.9 Status: Chronic (4) Diabetes ICD Code: E11.9 Status: Chronic Assessment and Plan 65-year-old male with Atypical Chest Pain. Lexiscan in January 2016 negative for ischemia. Serial cardiac enzyme and EKG is unremarkable . Continue with current treatment. Patient has an appointment with cardiology at 11:00 today therefore he will be discharged MAYELA: Renal indices Improving and continue to monitor and avoid all nephrotoxic drugs Hypomagnesemia: Replace electrolyte and monitor Pseudohyponatremia, likely due to hyperglycemia Diabetes, chronic -ACCU checks AC/HS with SSI -Diabetic diet DVT prophylaxis: Heparin Discharge Planning Discharge patient to home Condition on discharge: Improved Regular Diet as tolerated Ad Enma activity Rx written:none Follow-up with primary care physician in 1 week Problem Qualifiers (1) Chest pain: Qualified Code: R07.9 - Chest pain, unspecified type (2) Diabetes: Titus Solis MD May 27, 2016 08:20
[2016-05-27] MEDS: ATORVASTATIN 40 MG TAB PO SCH (09:00)
[2016-05-27] MEDS: HEPARIN SODIUM - SQ 10,000 UNITS/ML VIAL SQ SCH (10:00)
[2016-05-27] MEDS: FLUTICASONE PROPIONATE 50 MCG/ACT 16 GM NASAL SPRAY EACH NARE SCH (10:00)
[2016-05-27] MEDS: SODIUM CHLORIDE 0.9% FLUSH 5 ML FLUSH FLUSH SCH (10:00)
[2016-05-27] MEDS: DOCUSATE SODIUM 100 MG CAP PO SCH (10:00)
[2016-05-27] MEDS: THIAMINE HCL 100 MG TAB PO SCH (10:42)
[2016-05-27] MEDS: FAMOTIDINE 20 MG TAB PO SCH (10:43)
[2016-05-27] MEDS: CHOLECALCIFEROL (VIT D3) 1000 UNIT TAB PO SCH (10:43)
[2016-05-27] MEDS: ASPIRIN EC 325 MG TABEC PO SCH (10:43)
[2016-05-27] MEDS: MAGNESIUM OXIDE 400 MG TAB PO SCH (10:44)
--- NOTE | 2016-06-01 15:02 | EKG ---
Date Performed: 05/26/2016 Time Performed: 03:25:05 PTAGE: 65 years EKG: ELECTRONIC VENTRICULAR PACEMAKER ABNORMAL RHYTHM ECG PREVIOUS TRACING : 05/25/2016 20.33 DOCTOR: Franklyn Carney Interpretating Date/Time 06/01/2016 15:02:05
== END 2016-05-27 12:43 | disposition home or self-care (01) | DRG 313 ==
LOC: NEPA 15:03 → NEDA 16:35 → OBSVTOIN 17:45 → NEPHCDU 18:42
PROVIDERS: ADMIT Hospitalist; ATTEND Hospitalist
DX: R07.89 Other chest pain (principal); I25.10 Atherosclerotic heart disease of native coronary artery without angina pectoris; N17.9 Acute kidney failure, unspecified; K76.6 Portal hypertension; E11.65 Type 2 diabetes mellitus with hyperglycemia; E83.42 Hypomagnesemia; K70.30 Alcoholic cirrhosis of liver without ascites; J44.9 Chronic obstructive pulmonary disease, unspecified; E78.5 Hyperlipidemia, unspecified; Z95.810 Presence of automatic (implantable) cardiac defibrillator; Z87.891 Personal history of nicotine dependence; Z95.1 Presence of aortocoronary bypass graft; Z95.5 Presence of coronary angioplasty implant and graft
CPT/HCPCS: 71010; 80048; 82550; 82552; 82948; 83735; 83880; 84484; 85025; 85610; 85730; 93005; J1644; J1815

== ENCOUNTER 2016-06-23 12:51 | Day surgery (SDC) | payer OTHER ==
[2016-06-23] VITALS (7 sets, daily range): BP systolic 105–131; BP diastolic 71–88; PULSE 68–89; RESP 16–18; TEMP 98.3–98.4; O2SAT 94–95
[~2016-06-23 12:51] MED LIST changes: +KETO0.02 EACH EYE; -LISI2.5T3 PO; +SACU1TAB PO; -ZADITOR EACH EYE; -ZOLO50TA PO
[2016-06-23] MEDS ORDERED: DULA10IN SQ (13:51)
[2016-06-23] MEDS ORDERED: SERT-132 PO (13:51)
[2016-06-23] MEDS ORDERED: SOTA120T PO (13:51)
[2016-06-23] MEDS ORDERED: SODIUM CHLORID 0.9% 500 ML INJ 500 ML IV SCH (14:00)
[2016-06-23] MEDS ORDERED: LORazepam 1 MG TAB SL SCH (14:00)
[2016-06-23] MEDS ORDERED: LACTATED RINGER'S 1000 ML IV SCH (14:00)
[2016-06-23] MEDS ORDERED: INSULIN HUMAN REGULAR 1,000 UNITS/10 ML VIAL SQ PRN (14:00)
[2016-06-23] MEDS ORDERED: SODIUM CHLORID 0.9% 500 ML IV SCH (14:00)
[2016-06-23] MEDS ORDERED: METOPROLOL TARTRATE 25 MG TAB PO PRN (14:00)
[2016-06-23 14:04] LABS: HEMATOCRIT 39.7 % (39.0-51.0); MEAN CORPUSCULAR HEMOGLOBIN 30.7 PG (27.0-34.0); MEAN CORPUSCULAR HGB CONC 33.3 % (32.0-36.0); PLATELET COUNT 132 TH/MM3 (150-450); RED BLOOD COUNT 4.31 MIL/MM3 (4.50-5.90); RED CELL DISTRIBUTION WIDTH 14.4 % (11.6-17.2); WHITE BLOOD COUNT 6.4 TH/MM3 (4.0-11.0)
[2016-06-23 14:06] LABS: HEMO FLAGS AUTO DIFF
[2016-06-23 14:14] LABS: APTT (PATIENT) 26.3 SEC (24.3-30.1); INTERNATIONAL NORMALIZED RATIO 1.1 RATIO
[2016-06-23] MEDS ORDERED: PROPOFOL 200 MG/20 ML AMP IV ONE (14:30)
[2016-06-23] MEDS ORDERED: SODIUM CHLOR 0.9% 250 ML INJ 250 ML ONE (14:37)
[2016-06-23] MEDS ORDERED: ISOPROTERENOL HCL 1 MG/5 ML AMP ONE (14:37)
[2016-06-23 14:42] LABS: PLATELET ESTIMATE SMEAR LOW (NORMAL); PLATELET MORPHOLOGY NORMAL (NORMAL); SCAN/DIFF AUTO DIFF CONFIRMED
[2016-06-23] MEDS ORDERED: HEPARIN-NS/PF INJ 500 ML ONE (15:09)
[2016-06-23] MEDS ORDERED: PROTAMINE SULFATE 50 MG/5 ML VIAL ONE ×2 (16:08→16:09)
[2016-06-23 16:23] LABS: BICARBONATE 29.6 MEQ/L (21.0-32.0); POTASSIUM 4.1 MEQ/L (3.5-5.1)
[2016-06-23] MEDS ORDERED: BACITRACIN OINT 0.9 GM PKT TOP ONE (17:30)
[2016-06-23] MEDS ORDERED: LORazepam 2 MG/ML VIAL IV PRN (17:30)
[2016-06-23] MEDS ORDERED: ONDANSETRON HCL 4 MG/2 ML VIAL IV PRN (17:30)
[2016-06-23] MEDS ORDERED: METOCLOPRAMIDE HCL 10 MG/2 ML VIAL IV PRN (17:30)
[2016-06-23] MEDS ORDERED: oxyCODONE/ACETAMINOPHEN 5 MG/325 MG TAB PO PRN ×2 (17:30)
[2016-06-23] MEDS ORDERED: LIDOCAINE HCL 1% 50 ML VIAL INFIL PRN (17:30)
[2016-06-23] MEDS ORDERED: SODIUM CHLOR 0.9% 250 ML INJ 250 ML IV PRN (17:30)
[2016-06-23] MEDS ORDERED: ATROPINE SULFATE 1 MG/ML VIAL IV PRN (17:30)
[2016-06-23] MEDS ORDERED: NON-FORMULARY DRUG (Dulaglutide Inj (Trulicity Inj) 0.75 MG) SQ SCH (17:30)
--- NOTE | 2016-06-23 18:05 | MA ---
cc: FRANTZ NICHOLAS M.D., HANSCY M.D. DATE 06/23/2016 Cc: Electrophysiology study, CS cannulation, intracardiac echo, aortogram, discontinue ventricular tachycardia ablation, biventricular pacer defibrillator reprogramming. INDICATION Mr. Sutherland is a 65-year-old gentleman coronary artery disease, congestive heart failure, cardiomyopathy, previous biventricular pacer defibrillator implanted, recurrent episodes of ventricular tachycardia and appropriate response to amiodarone. He is on sotalol. He is on optimal medical treatment, admitted for electrophysiology study and ventricular tachycardia ablation. The risks, the nature and the benefit of the procedure are clearly stated to him. The risks include pneumothorax, cardiac perforation, stroke, need for open heart surgery and even . He understood and agreed to proceed. PROCEDURE DETAILS After written informed consent was obtained, the patient was brought to the EP lab where he was prepped and draped in the usual sterile fashion. Conscious sedation was initiated and maintained throughout the procedure by anesthesiologist. Once sedation verified, the left and right inguinal areas were anesthetized with 2% Xylocaine. Using modified Seldinger technique, the left femoral vein was cannulated on three occasions and three guidewires were advanced. Over the wire a 6, a 7 and a 10 Nam[place]ian Hemaquet were advanced. Then the left femoral artery was cannulated on one occasion and one guidewire was advanced. Over the wire 4-Namibian Hemaquet was advanced. Then the right femoral vein was cannulated on one occasion and one guidewire was advanced. Over the wire a 6-Namibian Hemaquet was advanced. Then the right femoral artery was cannulated on one occasion and one guidewire was advanced. Over the wire a 8-Namibian Hemaquet was advanced. Then under fluoroscopic guidance through the 6 and 7-Namibian Hemaquets, three 5-Namibian Roe curved quadripolar electrophysiology catheters were advanced and positioned on the His, coronary sinus and right ventricular apex. Basic interval was measured. The patient's biventricular pacer defibrillator was reprogrammed to VVI 40 defibrillatory off. Then through the 10-Namibian Hemaquet, a Cordis Scott Accunav intracardiac echo catheter was advanced and placed at the right atrium. Multiple views were obtained. There is no pericardial effusion and pulmonary vein was seen. Atrial septal visualized. Aortic root was seen. Then the catheter was placed at the right ventricular septal area. There was adequate visualization of the left ventricle. There was severe anterior hypokinesia and some septal dyskinesia also. Ejection fraction is under 20%. The patient received at this point 5000 units of heparin. I decided to proceed with ablation. Through the 8-Namibian Hemaquet, bidirectional ___ 3.5 mm irrigated tipped mapping radiofrequency ablation catheter was advanced. I did try to advance at the level of the right femoral vein. I was unsuccessful. Then at this point I did advance 0.035 wire. Subsequently I decided to perform venography. Contrast was injected through a pigtail. There is severe occlusion. At this point I decided to bypass the previous occlusion at the level of the distal portion of the right femoral vein. I did exchange the short 8-Namibian for a 25 cm 8-Namibian catheter. Again I passed the first occlusion. I did try to advance the catheter after the first occlusion. I was unable to move. Further venography showed severe occlusion of the proximal and mid aorta. At this point I was trying to use a long sheath. Because of so many occlusions and in the aorta. I decided to discontinue for now the ablation. The risk of a stroke due to plaque dislodgement is too high. All catheters were removed. Intracardiac echo showed still no pericardial effusion. The patient going to be transferred to recovery room. In the future if there is sustained VT then I will try transeptal approach. That was a very difficult case. No incident to report. The patient tolerated the procedure. Blood loss minimal. IMPRESSION 1. Electrocardiogram. At baseline the patient was in sinus. Postprocedure electrocardiogram was unchanged. 2. Basic interval was around 920 milliseconds. 3. Tachyarrhythmia. I did attempt to ablate ventricular tachycardia but ablation had to be discontinued because of the severe and multiple plaque in the descending aorta. CONCLUSION Discontinued ventricular tachycardia ablation. COMMENT AND RECOMMENDATIONS As mentioned before the patient going to continue with medical management. Will be observed. If in the future there is more episode of ventricular tachyarrhythmia and the sotalol cannot control the episode, then I will proceed with transseptal for ablation. MD GINNY Zambrano/ALIS /5:24 PM /5:43 PM
[2016-06-23] MEDS: SACUBITRIL/VALSARTAN 24 MG-26 MG TAB PO SCH (20:49)
[2016-06-23] MEDS: SOTALOL HCL 80 MG TAB PO SCH (20:49)
[2016-06-23] MEDS ORDERED: NON-FORMULARY DRUG (Ipratropium-Albuterol Inh (Combivent Respimat Inh) 2 PUFF) INH SCH (21:00)
[2016-06-23] MEDS ORDERED: SOTALOL 120 MG PO SCH (21:00)
[2016-06-23] MEDS ORDERED: PT:COMBIVENT RESPIMAT INH SCH (21:00)
[2016-06-23] MEDS ORDERED: PILL SPLITTER OTHER PRN (21:00)
--- NOTE | 2016-06-23 22:32 | EKG ---
Date Performed: 06/23/2016 Time Performed: 14:08:14 PTAGE: 65 years EKG: Demand pacing. Pacemaker rhythm - no further analysis Abnormal ECG PREVIOUS TRACING : 05/26/2016 03.25 Compared to prior tracing no significant change DOCTOR: Maryjane Souza Interpretating Date/Time 06/23/2016 22:30:54
[2016-06-24] VITALS (13 sets, daily range): BP systolic 108–116; BP diastolic 65–73; PULSE 66–80; RESP 16–18; TEMP 98–98.2; O2SAT 94–95
[2016-06-24 07:01] LABS: APTT (PATIENT) 29.1 SEC (24.3-30.1); INTERNATIONAL NORMALIZED RATIO 1.1 RATIO; PROTHROMBIN TIME - PATIENT 12.5 SEC (9.8-11.6)
--- NOTE | 2016-06-24 08:02 | PD.CARD.PN ---
Subjective Subjective Remarks Feels ok. Objective Medications Current Medications Medications (Trade) Dose Ordered Sig/Yakelin Route Start Time Stop Time Status Last Admin (NS 500 ml Inj) 500 ml @ 30 mls/hr [id number] IV 06/23/16 14:00 (Percocet 5-325 Mg) 1 tab Q4H PRN PO 06/23/16 17:30 (Percocet 5-325 Mg) 2 tab Q4H PRN PO 06/23/16 17:30 (Ativan Inj) 0.5 mg UNSCH PRN IV 06/23/16 17:30 06/24/16 17:29 Atropine Sulfate 0.5 mg 0.5 mg UNSCH PRN IV 06/23/16 17:30 (NS 250 ml Inj) 250 ml @ 500 mls/hr ONCE PRN IV 06/23/16 17:30 06/24/16 17:29 (Reglan Inj) 10 mg Q4H PRN IV 06/23/16 17:30 (Zofran Inj) 4 mg Q4H PRN IV 06/23/16 17:30 (Xylocaine 1% Inj (50 ml)) 10 ml UNSCH PRN INFIL 06/23/16 17:30 06/24/16 17:29 (Ecotrin Ec) 81 mg DAILY PO 06/24/16 09:00 (Lipitor) 40 mg DAILY PO 06/24/16 09:00 (Vitamin D3) 1,000 units DAILY PO 06/24/16 09:00 (Flonase Kahlil Spr) 2 spray DAILY EACH NARE 06/24/16 09:00 (Entresto 24-26 Mg) 1 tab BID PO 06/23/16 21:00 06/23/16 20:49 (Zoloft) 50 mg DAILY PO 06/24/16 09:00 (Vitamin B1) 100 mg DAILY PO 06/24/16 09:00 (Betapace) 120 mg BID PO 06/23/16 21:00 06/23/16 20:49 (Pill Splitter) 1 ea UNSCH PRN OTHER 06/23/16 21:00 (Patanol 0.1% Opth) 1 drop DAILY EACH EYE 06/24/16 09:00 Patient Own Medication PT OWN MED: COMBIV... BID INH 06/23/16 21:00 Hold Patient Own Medication PT OWN MED: TRULICITY 0.75... Q7D SQ 06/27/16 09:00 Future Hold Patient Own Medication PT OWN MED: TRESIBA FLEXTOUCH-... DAILY SQ 06/24/16 09:00 Future Hold Vital Signs / I&O Vital Signs Date Time Temp Pulse Resp B/P Pulse Ox O2 Delivery O2 Flow Rate FiO2 06/24/16 07:00 98.0 73 16 108/73 95 06/24/16 06:00 66 06/24/16 05:00 72 06/24/16 04:00 80 06/24/16 03:00 69 06/24/16 03:00 98.2 69 110/70 94 06/24/16 02:00 68 06/24/16 01:00 72 06/24/16 00:00 74 06/24/16 00:00 72 116/65 95 06/23/16 23:00 72 06/23/16 22:00 78 06/23/16 21:00 80 06/23/16 20:00 78 06/23/16 19:00 79 06/23/16 19:00 98.4 89 122/80 95 06/23/16 18:33 98.3 80 18 131/88 95 06/23/16 13:44 98.4 68 16 105/71 94 I/O 06/23/16 06/23/16 06/23/16 06/24/16 06/24/16 06/24/16 07:00 15:00 23:00 07:00 15:00 23:00 Intake Total 480 ml Output Total 400 ml 1200 ml Balance -400 ml -720 ml Intake Oral 480 ml Output Urine Total 400 ml 1200 ml Physical Exam GENERAL: Well-nourished, well-developed patient. SKIN: Warm and dry. Groin sites soft, no bruising. HEAD: Normocephalic. EYES: No scleral icterus. No injection or drainage. NECK: Supple, trachea midline. No JVD or lymphadenopathy. CARDIOVASCULAR: Regular rate and rhythm without murmurs, gallops, or rubs. RESPIRATORY: Breath sounds equal bilaterally. No accessory muscle use. GASTROINTESTINAL: Abdomen soft, non-tender, nondistended. EXTREMITIES: No cyanosis, or edema. NEUROLOGICAL: Awake, alert, and oriented x 3. Non-focal. Laboratory Laboratory Tests Test 3/06/23/16 06/24/16 13:41 15:25 05:23 White Blood Count 6.4 TH/MM3 Red Blood Count 4.31 MIL/MM3 Hemoglobin 13.2 GM/DL Hematocrit 39.7 % Mean Corpuscular Volume 92.0 FL Mean Corpuscular Hemoglobin 30.7 PG Mean Corpuscular Hemoglobin 33.3 % Concent Red Cell Distribution Width 14.4 % Platelet Count 132 TH/MM3 Mean Platelet Volume 9.4 FL Neutrophils (%) (Auto) % Lymphocytes (%) (Auto) % Monocytes (%) (Auto) % Eosinophils (%) (Auto) % Basophils (%) (Auto) % Neutrophils # (Auto) TH/MM3 Lymphocytes # (Auto) TH/MM3 Monocytes # (Auto) TH/MM3 Eosinophils # (Auto) TH/MM3 Basophils # (Auto) TH/MM3 CBC Comment AUTO DIFF Differential Comment AUTO DIFF CONFIRMED Platelet Estimate LOW Platelet Morphology Comment NORMAL Prothrombin Time 12.0 SEC 12.5 SEC Prothromb Time International 1.1 RATIO 1.1 RATIO Ratio Activated Partial 26.3 SEC 29.1 SEC Thromboplast Time Blood Type A POSITIVE Antibody Screen NEGATIVE Sodium Level 133 MEQ/L Potassium Level 4.1 MEQ/L Chloride Level 96 MEQ/L Carbon Dioxide Level 29.6 MEQ/L Anion Gap 7 MEQ/L Blood Urea Nitrogen 10 MG/DL Creatinine 0.99 MG/DL Estimat Glomerular Filtration 76 ML/MIN Rate Random Glucose 143 MG/DL Calcium Level 7.8 MG/DL Assessment and Plan Problem List: (1) Ventricular tachyarrhythmia Assessment and Plan: SR on tele s/p aborted ablation. Unable to advance catheter d/t significant plaque d/t stroke risk. Recommended to continue medical management and if unable to control VT with sotalol or other medications , will consider reattempt at a later time, per my d/w Dr. Davenport. D/C home. F/ U with Dr. Davenport in 3 weeks. Assessment and Plan D/W pt., RN, Dr. Davenport. Jazz Godfrey Jun 24, 2016 08:02
[2016-06-24] MEDS: SACUBITRIL/VALSARTAN 24 MG-26 MG TAB PO SCH (08:25)
[2016-06-24] MEDS: SOTALOL HCL 80 MG TAB PO SCH (08:26)
[2016-06-24] MEDS ORDERED: OLOPATADINE HCL 0.1% OPHT SOLN 5 ML BTL EACH EYE SCH (09:00)
[2016-06-24] MEDS ORDERED: THIAMINE HCL 100 MG TAB PO SCH (09:00)
[2016-06-24] MEDS ORDERED: INSULIN DEGLUDEC 70 UNIT SQ SCH (09:00)
[2016-06-24] MEDS ORDERED: CHOLECALCIFEROL (VIT D3) 1000 UNIT TAB PO SCH (09:00)
[2016-06-24] MEDS ORDERED: INSULIN DEGLUDEC SQ SCH (09:00)
[2016-06-24] MEDS ORDERED: NON-FORMULARY DRUG (Ketotifen Opth Drops (ZyrTEC Itchy Eye Opth Drops) 1 DROP) EACH EYE SCH (09:00)
[2016-06-24] MEDS ORDERED: ASPIRIN EC 81 MG TABEC PO SCH (09:00)
[2016-06-24] MEDS ORDERED: ATORVASTATIN 40 MG TAB PO SCH (09:00)
[2016-06-24] MEDS ORDERED: SERTRALINE HCL 50 MG TAB PO SCH (09:00)
[2016-06-24] MEDS ORDERED: FLUTICASONE PROPIONATE 50 MCG/ACT 16 GM NASAL SPRAY EACH NARE SCH (09:00)
--- NOTE | 2016-06-24 20:14 | EKG ---
Date Performed: 06/24/2016 Time Performed: 05:08:16 PTAGE: 65 years EKG: Ventricular pacing Pacemaker rhythm - no further analysis Abnormal ECG PREVIOUS TRACING : 06/23/2016 14.08 Compared to prior tracing no significant change DOCTOR: Maryjane Souza Interpretating Date/Time 06/24/2016 20:13:28
[2016-06-27] MEDS ORDERED: PT TRULICITY SQ SCH (09:00)
== END 2016-06-24 10:31 | disposition home or self-care (01) ==
LOC: HDIC 12:51 → HCAT 12:51 → HCIN 18:36 → HCAT 06-24 10:31
PROVIDERS: ATTEND Internal Medicine Interventional Cardiology
DX: I47.2 Ventricular tachycardia (principal); I42.9 Cardiomyopathy, unspecified; I50.9 Heart failure, unspecified; I25.10 Atherosclerotic heart disease of native coronary artery without angina pectoris; E78.5 Hyperlipidemia, unspecified; Z95.810 Presence of automatic (implantable) cardiac defibrillator
CPT/HCPCS: 00537; 80048; 85002; 85025; 85610; 85730; 86850; 86900; 86901; 93005; 93654; 93662; C1730; C1732; C1759; J1644; J2720; J3010; J7050

== ENCOUNTER 2016-07-02 14:31 | Observation (INO) | payer OTHER ==
[2016-07-02] VITALS (7 sets, daily range): BP systolic 126–149; BP diastolic 73–81; PULSE 69–83; RESP 18; TEMP 97.8; O2SAT 92–97
[~2016-07-02] VITALS: Ht 167.6 cm; Wt 93.0 kg
[~2016-07-02 14:31] MED LIST changes: +DULA10IN SQ; -FURO1TAB60 PO; -PANT40TA3 PO; +SERT-132 PO; +SOTA120T PO
--- NOTE | 2016-07-02 14:57 | PD ---
HPI Chief Complaint: Dizziness Time Seen by Provider: 14:41 Travel History International Travel<30 days: No Contact w/Intl Traveler<30days: No Traveled to known affect area: No History of Present Illness HPI This patient complains of feeling lightheadedness. Duration is 3 days. His symptoms have been continual but wax and wane and at times are much worse. He has no palpitations or chest pain and no syncope. He has history of recurrent ventricular tachycardia problems and recently underwent attempt at ablation that was unsuccessful. He reports compliance with his medications. He has a pacer and a defibrillator but it has not fired. Symptoms severity is moderate. No alleviating factors. PFSH Past Medical History Hx Anticoagulant Therapy: Yes (ASA) Arthritis: No Asthma: Yes Atrial Fibrillation: Yes Autoimmune Disease: No Blood Disorders: No Anxiety: Yes Depression: Yes Heart Rhythm Problems: Yes Cancer: No Cardiac Catheterization: Yes Cardiovascular Problems: Yes (RI,CHF,CAD, HYPERLIPIDEMIA) High Cholesterol: Yes Chemotherapy: No Chest Pain: Yes Congestive Heart Failure: Yes Cirrhosis: Yes COPD: Yes Cerebrovascular Accident: No Diabetes: Yes Patient Takes Glucophage: Yes Diminished Hearing: No Endocrine: Yes (Diabetes Mellitus) Gastrointestinal Disorders: Yes (ASCITES) GERD: No Glaucoma: No Genitourinary: No Headaches: Yes Hepatitis: No Hiatal Hernia: No Hypertension: Yes Immune Disorder: No Implanted Vascular Access Dvce: Yes Kidney Stones: No Musculoskeletal: No Neurologic: Yes (tremors) Psychiatric: No Reproductive: No Respiratory: Yes (COPD ) Integumentary: No Immunizations Current: No Migraines: No Pneumonia: Yes Radiation Therapy: No Renal Failure: No Seizures: No Sickle Cell Disease: No Sleep Apnea: Yes Thyroid Disease: No Ulcer: No Past Surgical History Abdominal Surgery: Yes (hernia repair) AICD: Yes ([employer]) Arteriovenous Shunt: No Body Medical Devices: STENTS TAYA [employer]GS [employer] HE[employer], DEFIBRILLATOR Coronary Artery Bypass Graft: Yes (TRIPLE) Coronary Stent: Yes (X3) Ear Surgery: No Endocrine Surgery: No Eye Surgery: No Genitourinary Surgery: No Gynecologic Surgery: No Insulin Pump: No Joint Replacement: No Oral Surgery: No Pacemaker: Yes (AICD) Other Surgery: Yes (CABG, TAYA L.E. STENTS, AICD) Social History Alcohol Use: No (EVERYDAY-FORMER) Tobacco Use: No (QUIT A YEAR AGO ) Substance Use: No Allergies-Medications (Allergen,Severity, Reaction): Coded Allergies: No Known Allergies (Unverified , 05/25/16) Reported Meds & Prescriptions Reported Meds & Active Scripts Active Vitamin B-1 (Thiamine HCl) 100 Mg Tab 100 Mg PO DAILY 30 Days Reported Sotalol (Sotalol HCl) 120 Mg Tab 120 Mg PO BID Trulicity Inj (Dulaglutide Inj) 0.75 Mg/0.5 Ml Pen 0.75 Mg SQ Q7D Sertraline (Sertraline HCl) 50 Mg Tab 50 Mg PO DAILY Entresto (Sacubitril-Valsartan) 24-26 Mg Tab 1 Tab PO BID ZyrTEC Itchy Eye Opth Drops (Ketotifen Opth Drops) 0.025% Drops 1 Drop EACH EYE DAILY Atorvastatin (Atorvastatin Calcium) 40 Mg Tab 40 Mg PO DAILY D3 (Cholecalciferol) 1,000 Unit Tab 1,000 Units PO DAILY Flonase Nasal [place] (Fluticasone Nasal [place]) 50 Mcg/Act [place] 2 [place] EACH NARE DAILY Nitroglycerin SL (Nitroglycerin) 0.4 Mg Subl 0.4 Mg SL DIRECTED ONE TABLET UNDER THE TONGUE NEEDED FOR CHEST PAIN, MAY REPEAT EVERY FIVE MINUTES FOR A TOTAL OF 3 DOSES OR CALL 911 IF NO RELIEF Aspirin 81 Mg Tabdr 81 Mg PO DAILY Combivent Respimat Inh (Ipratropium-Albuterol Inh) 20-100 Jail/Act Aero 2 Puff INH BID Tresiba Flextouch Pen Inj (Insulin Degludec Inj) 300 unit/3 ML Pen 95 Units SQ DAILY Review of Systems General / Constitutional: No: Fever Eyes: No: Visual changes HENT: Positive: Lightheadedness, No: Headaches Cardiovascular: No: Chest Pain or Discomfort Respiratory: No: Shortness of Breath Gastrointestinal: No: Abdominal Pain Genitourinary: No: Dysuria Musculoskeletal: No: Pain Skin: No Rash Neurologic: Positive: Dizziness, No: Weakness Psychiatric: No: Depression Endocrine: No: Polydipsia Hematologic/Lymphatic: No: Easy Bruising Physical Exam Narrative GENERAL: Well-nourished, well-developed patient in no apparent distress. SKIN: Focused skin assessment reveals no rash and nodules. Skin is Warm and dry. HEAD: Atraumatic. Normocephalic. EYES: Pupils equal and round. No scleral icterus. No injection or drainage. ENT: No nasal bleeding or discharge. Mucous membranes pink and moist. NECK: Trachea midline. No JVD. CARDIOVASCULAR: Regular rate and rhythm. No murmur appreciated. RESPIRATORY: No accessory muscle use. Clear to auscultation. Breath sounds equal bilaterally. GASTROINTESTINAL: Abdomen soft, non-tender, nondistended. Hepatic and splenic margins not palpable. MUSCULOSKELETAL: No obvious deformities. No clubbing. No cyanosis. No edema. NEUROLOGICAL: Awake and alert. No obvious cranial nerve deficits. Motor grossly within normal limits. Normal speech. PSYCHIATRIC: Appropriate mood and affect; insight and judgment normal. Data Data Last Documented VS Vital Signs Date Time Temp Pulse Resp B/P Pulse Ox O2 Delivery O2 Flow Rate FiO2 07/02/16 18:23 95 Nasal Cannula 2.00 07/02/16 17:07 72 18 130/76 Orders Electrocardiogram (07/02/16 ) Basic Metabolic Panel (Bmp) (07/02/16 14:51) Complete Blood Count With Diff (07/02/16 14:51) Ecg Monitoring (07/02/16 14:51) Iv Access Insert/Monitor (07/02/16 14:51) Oximetry (07/02/16 14:51) Sodium Chloride 0.9% Flush (Ns Flush) (07/02/16 15:00) Orthostatic Vital Signs (07/02/16 14:51) Aspirin Ec (Ecotrin Ec) (07/03/16 09:00) Atorvastatin (Lipitor) (07/03/16 09:00) Fluticasone Kahlil Spr (Flonase Kahlil Spr) (07/03/16 09:00) Sacubitril-Valsartan 24-26 Mg (Entresto (07/02/16 21:00) Sertraline (Zoloft) (07/03/16 09:00) Patient Own Medication (07/03/16 09:00) Patient Own Medication (07/02/16 21:00) Sotalol (Betapace) (07/02/16 21:00) Place In Observation (07/02/16 ) Vital Signs (Adult) Q4H (07/02/16 18:17) Activity Oob With Assistance (07/02/16 18:17) Combat Systems Operator / Telemetry .CONTINUOUS (07/02/16 18:17) Intake + Output BARRERA.QSHIFT (07/02/16 18:17) Diet Heart Healthy (07/02/16 Dinner) Sodium Chloride 0.9% Flush (Ns Flush) (07/02/16 18:30) Sodium Chloride 0.9% Flush (Ns Flush) (07/02/16 21:00) Acetaminophen (Tylenol) (07/02/16 18:30) Ondansetron Inj (Zofran Inj) (07/02/16 18:30) Magnesium Hydroxide Liq (Milk Of Magnesi (07/02/16 18:30) Comprehensive Metabolic Panel (07/03/16 06:00) Complete Blood Count With Diff (07/03/16 06:00) Creatine Kinase (Cpk) (07/02/16 18:17) Creatine Kinase (Cpk) (07/03/16 00:17) Troponin I (07/02/16 18:17) Troponin I (07/03/16 00:17) Electrocardiogram (07/02/16 18:30) Electrocardiogram (07/03/16 00:30) Electrocardiogram (07/03/16 06:30) Electrocardiogram (07/03/16 12:30) Electrocardiogram (07/03/16 18:30) Resp Oxygen Kahlil C Titrat 1-4 L (07/02/16 ) Pt Request For Service (07/02/16 18:17) Scd Bilateral/Knee High BARRERA.BID (07/02/16 18:17) Naloxone Inj (Narcan Inj) (07/02/16 18:30) Chest, Single Ap (07/02/16 ) Bedside Glucose BARRERA.AC&HS (07/02/16 18:19) Blood Glucose Goal (Criteria) (07/02/16 18:19) Hypoglycemia 51 - 69 Mg/Dl (07/02/16 18:19) Hypoglycemia 50 Mg/Dl Or < (07/02/16 18:19) Notify Dr: Other (07/02/16 18:19) Dextrose 50% In Mauricio (Vial) Inj (D50w (Vi (07/02/16 18:30) Glucagon Inj (Glucagon Inj) (07/02/16 18:30) Insulin Aspart Supplemtl Scale (Novolog (07/02/16 21:00) Echo 2d Comp W/Dopp(Routine) (07/02/16 ) Consult Cardiology (07/02/16 ) Olopatadine 0.1% Opth (Patanol 0.1% Opth (07/02/16 21:00) Albuterol-Ipratropium Neb (Duoneb Neb) (07/02/16 18:45) Labs Laboratory Tests Test 07/02/16 15:00 White Blood Count 7.4 TH/MM3 Red Blood Count 4.26 MIL/MM3 Hemoglobin 13.2 GM/DL Hematocrit 39.2 % Mean Corpuscular Volume 92.0 FL Mean Corpuscular Hemoglobin 31.1 PG Mean Corpuscular Hemoglobin 33.7 % Concent Red Cell Distribution Width 15.4 % Platelet Count 157 TH/MM3 Mean Platelet Volume 8.4 FL Neutrophils (%) (Auto) 67.9 % Lymphocytes (%) (Auto) 17.9 % Monocytes (%) (Auto) 10.6 % Eosinophils (%) (Auto) 2.8 % Basophils (%) (Auto) 0.8 % Neutrophils # (Auto) 5.0 TH/MM3 Lymphocytes # (Auto) 1.3 TH/MM3 Monocytes # (Auto) 0.8 TH/MM3 Eosinophils # (Auto) 0.2 TH/MM3 Basophils # (Auto) 0.1 TH/MM3 CBC Comment DIFF FINAL Differential Comment Sodium Level 133 MEQ/L Potassium Level 4.7 MEQ/L Chloride Level 98 MEQ/L Carbon Dioxide Level 24.6 MEQ/L Anion Gap 10 MEQ/L Blood Urea Nitrogen 14 MG/DL Creatinine 0.83 MG/DL Estimat Glomerular Filtration 94 ML/MIN Rate Random Glucose 104 MG/DL Calcium Level 8.5 MG/DL [facility] Medical Decision Making Medical Screen Exam Complete: Yes Emergency Medical Condition: Yes Medical Record Reviewed: Yes Differential Diagnosis Ventricular tachycardia, A. fib, SVT, anxiety, presyncope Narrative Course I have reviewed the patient's electronic medical record. Reviewed his catheterization/ablation report from Dr. Davenport from May 2016 IV placed I reviewed his EKG which shows a paced rhythm at 75 Extended clinical research monitor reveals paced rhythm without ectopy CBC is normal Metabolic profile is normal We've called in the [employer] rep to interrogate his device to evaluate for significant cardiac arrhythmia. The rep reports that the device is functioning well and has no events He did have a 4 beat run of wide complex V. tach. They terminated on its own Reviewed this with cardiology coverage Dr. Jackson who was not comfortable with the patient being discharged He will be a 23 are observation on telemetry I reviewed with the hospitalist team who will do this Diagnosis Primary Impression: Lightheadedness Additional Impression: Ventricular tachyarrhythmia Admitting Information Admitting Physician Requests: Observation Anam Pierce MD Jul 02, 2016 14:57
[2016-07-02] MEDS ORDERED: SODIUM CHLORIDE 0.9% FLUSH 10 ML FLUSH IVF PRN (15:00)
[2016-07-02 15:26] LABS: BASOPHIL # 0.1 TH/MM3 (0-0.2); BASOPHIL % 0.8 % (0.0-2.0); EOSINOPHIL # 0.2 TH/MM3 (0-0.4); EOSINOPHIL % 2.8 % (0.0-4.0); HEMATOCRIT 39.2 % (39.0-51.0); HEMO FLAGS DIFF FINAL; LYMPH % 17.9 % (9.0-44.0); LYMPHOCYTE # 1.3 TH/MM3 (1.0-4.8); MEAN CORPUSCULAR HEMOGLOBIN 31.1 PG (27.0-34.0); MEAN CORPUSCULAR HGB CONC 33.7 % (32.0-36.0); MONO % 10.6 % (0.0-8.0); NEUT % 67.9 % (16.0-70.0); PLATELET COUNT 157 TH/MM3 (150-450); RED BLOOD COUNT 4.26 MIL/MM3 (4.50-5.90); RED CELL DISTRIBUTION WIDTH 15.4 % (11.6-17.2); WHITE BLOOD COUNT 7.4 TH/MM3 (4.0-11.0)
[2016-07-02 15:42] LABS: BICARBONATE 24.6 MEQ/L (21.0-32.0); POTASSIUM 4.7 MEQ/L (3.5-5.1)
--- NOTE | 2016-07-02 18:27 | HHI.HP ---
HPI Service [facility] Primary Care Physician Venice Mota MD Admission Diagnosis Diagnoses: Chief Complaint: Lightheadedness Travel History International Travel<30 Days: No Contact w/Intl Traveler <30 Da: No Traveled to Known Affected Are: No History of Present Illness 65-year-old male with past medical history of CAD, CHF, HLD, DM, PVD, anxiety/ depression, cirrhosis, COPD, ventricular arrhythmia who presented with lightheadedness. The patient states that he has been feeling lightheaded and dizzy. He states he has episodes where he feels like he is going to pass out, currently feels that way. He denies any sensation of the room is spinning. He states that the symptoms of been present for the past year or 2, but haven't worsened yesterday. Lightheadedness is worse with standing and activity. He denies any chest pain. He does complain of some shortness of breath and dyspnea on exertion. He occasionally has palpitations with associated nausea. He states that he has been having loose stools, 2 or 3 times a day for the past few days, denies any recent antibiotic use or sick contacts. He occasionally has blurred vision, none currently. He denies any vomiting, cough, recent medication changes, leg swelling, fever, chills. He had an attempted cardiac ablation for ventricular arrhythmia last month, that was not successful secondary to heart plaque. He was noted to have a 4 beat run of ventricular tachycardia in the ED which resolved spontaneously. Pacemaker was interrogated the device rep, reportedly no issues. Cardiology was contacted, recommended evaluation by Dr. Davenport tomorrow. Review of Systems Except as stated in HPI: all other systems reviewed are Neg Past Family Social History Past Medical History Coronary artery disease Systolic CHF Hyperlipidemia Diabetes mellitus with neuropathy Peripheral vascular disease Anxiety/depression Cirrhosis COPD not on home O2 or CPAP Ventricular arrhythmia Past Surgical History CABG in 1997 Coronary stent placement in 2005 Bilateral leg stenting Pacemaker/AICD placement Hernia repair Paracentesis 2 Ablation Reported Medications Vitamin B-1 (Thiamine HCl) 100 Mg Tab 100 Mg PO DAILY 30 Days Sotalol (Sotalol HCl) 120 Mg Tab 120 Mg PO BID Trulicity Inj (Dulaglutide Inj) 0.75 Mg/0.5 Ml Pen 0.75 Mg SQ Q7D Sertraline (Sertraline HCl) 50 Mg Tab 50 Mg PO DAILY Entresto (Sacubitril-Valsartan) 24-26 Mg Tab 1 Tab PO BID ZyrTEC Itchy Eye Opth Drops (Ketotifen Opth Drops) 0.025% Drops 1 Drop EACH EYE DAILY Atorvastatin (Atorvastatin Calcium) 40 Mg Tab 40 Mg PO DAILY D3 (Cholecalciferol) 1,000 Unit Tab 1,000 Units PO DAILY Flonase Nasal [place] (Fluticasone Nasal [place]) 50 Mcg/Act [place] 2 [place] EACH NARE DAILY Nitroglycerin SL (Nitroglycerin) 0.4 Mg Subl 0.4 Mg SL DIRECTED ONE TABLET UNDER THE TONGUE NEEDED FOR CHEST PAIN, MAY REPEAT EVERY FIVE MINUTES FOR A TOTAL OF 3 DOSES OR CALL 911 IF NO RELIEF Aspirin 81 Mg Tabdr 81 Mg PO DAILY Combivent Respimat Inh (Ipratropium-Albuterol Inh) 20-100 Alf/Act Aero 2 Puff INH BID Tresiba Flextouch Pen Inj (Insulin Degludec Inj) 300 unit/3 ML Pen 95 Units SQ DAILY Allergies: Coded Allergies: No Known Allergies (Unverified , 05/25/16) Active Ordered Medications Current Medications Medications (Trade) Dose Ordered Sig/Yakelin Route Start Time Stop Time Status Last Admin (NS Flush) 2 ml UNSCH PRN IVF 07/02/16 15:00 (Ecotrin Ec) 81 mg DAILY PO 07/03/16 09:00 UNV (Lipitor) 40 mg DAILY PO 07/03/16 09:00 UNV (Flonase Kahlil Spr) 2 spray DAILY EACH NARE 07/03/16 09:00 UNV (Entresto 24-26 Mg) 1 tab BID PO 07/02/16 21:00 UNV (Zoloft) 50 mg DAILY PO 07/03/16 09:00 UNV Non-Formulary Medication 95 units DAILY SQ 07/03/16 09:00 UNV Non-Formulary Medication 2 puff BID INH 07/02/16 21:00 UNV Non-Formulary Medication 1 drop DAILY EACH EYE 07/03/16 09:00 UNV Non-Formulary Medication 120 mg BID PO 07/02/16 21:00 UNV (NS Flush) 2 ml UNSCH PRN IV FLUSH 07/02/16 18:30 UNV (NS Flush) 2 ml BID IV FLUSH 07/02/16 21:00 UNV (Tylenol) 650 mg Q4H PRN PO 07/02/16 18:30 UNV (Zofran Inj) 4 mg Q6H PRN IVP 07/02/16 18:30 UNV (Milk Of Magnesia Liq) 30 ml Q12H PRN PO 07/02/16 18:30 UNV (Narcan Inj) 0.4 mg UNSCH PRN IV 07/02/16 18:30 UNV Family History Brother passed from [place] and CHF Mother had borderline diabetes Social History Former tobacco and alcohol use, none currently Denies any drug use Lives at home with his sister Physical Exam Vital Signs Vital Signs Date Time Temp Pulse Resp B/P Pulse Ox O2 Delivery O2 Flow Rate FiO2 07/02/16 17:07 72 18 130/76 95 07/02/16 15:05 77 126/81 78 139/81 79 138/77 07/02/16 14:42 77 18 149/78 94 Nasal Cannula 2 07/02/16 14:42 77 16 92 Nasal Cannula 2 Physical Exam GENERAL: Well-developed well-nourished. In no acute distress. Patient seen ambulating from the restroom without assistance with mostly steady gait. SKIN: Warm and dry. No lesions noted. HEENT: Normocephalic. Pupils equal and round and reactive to light. Mucous membranes pink and moist. CARDIOVASCULAR: Regular rate and rhythm. No murmur appreciated. RESPIRATORY: No accessory muscle use. Clear to auscultation. Breath sounds equal bilaterally. GASTROINTESTINAL: Abdomen soft, non-tender, nondistended. Bowel sounds x4. MUSCULOSKELETAL: No obvious deformities. No clubbing or cyanosis. No edema. NEUROLOGICAL: Awake and alert. No focal neurological deficits. Moves upper and lower extremities spontaneously. Normal speech. Strength 5/5. PSYCHIATRIC: Appropriate mood and affect; insight and judgment normal. Laboratory Laboratory Tests Test 07/02/16 15:00 White Blood Count 7.4 Red Blood Count 4.26 Hemoglobin 13.2 Hematocrit 39.2 Mean Corpuscular Volume 92.0 Mean Corpuscular Hemoglobin 31.1 Mean Corpuscular Hemoglobin 33.7 Concent Red Cell Distribution Width 15.4 Platelet Count 157 Mean Platelet Volume 8.4 Neutrophils (%) (Auto) 67.9 Lymphocytes (%) (Auto) 17.9 Monocytes (%) (Auto) 10.6 Eosinophils (%) (Auto) 2.8 Basophils (%) (Auto) 0.8 Neutrophils # (Auto) 5.0 Lymphocytes # (Auto) 1.3 Monocytes # (Auto) 0.8 Eosinophils # (Auto) 0.2 Basophils # (Auto) 0.1 CBC Comment DIFF FINAL Differential Comment Sodium Level 133 Potassium Level 4.7 Chloride Level 98 Carbon Dioxide Level 24.6 Anion Gap 10 Blood Urea Nitrogen 14 Creatinine 0.83 Estimat Glomerular Filtration 94 Rate Random Glucose 104 Calcium Level 8.5 Result Diagram: 07/02/16 1500 07/02/16 1500 Assessment and Plan Assessment and Plan 65-year-old male with past medical history of CAD, CHF, HLD, DM, PVD, anxiety/ depression, cirrhosis, COPD, ventricular arrhythmia who presented with lightheadedness Lightheadedness/dizziness/Near syncope/Shortness of breath and dyspnea on exertion - Suspect secondary to underlying cardiac etiology Reviewed: Orthostatics negative. Labs essentially unremarkable. 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 Consider stool studies if further episodes. Diabetes mellitus: Continue home baseline insulin. Additional sliding scale coverage. Monitor Accu-Cheks. Systolic CHF/CAD/HLD/ventricular arrhythmia: Continue aspirin, statin, Entresto , sotalol. COPD: Chronic, stable. Continue home Combivent. O2 and Nebs as needed. DVT prophylaxis: SCDs Discussed Condition With Patient, ED RN, Dr. Pierce, Dr. Crews Attending Statement Patient reports on on dizziness however this has been going on for more than 4 weeks. He denies any active chest pain palpitations or any shortness of breath. At this time will place patient on telemetry for observation overnight for cardiology evaluation and further recommendations. Current CPK and troponin I pending and will follow-up. The exam, history, and the medical decision making described in the above note were completed with the assistance of the dictating practitioner. I reviewed and agree with the findings presented. I attest that I had a face-to face encounter with the patient on the same day and personally performed and documented my assessment and findings in the medical record. Nir Walter Jul 02, 2016 18:27 Alma Rosa Crews MD Jul 02, 2016 19:31
[2016-07-02] MEDS ORDERED: MAGNESIUM HYDROXIDE SUSP 30 ML CUP PO PRN (18:30)
[2016-07-02] MEDS ORDERED: NALOXONE HCL 0.4 MG/ML AMP IV PRN (18:30)
[2016-07-02] MEDS ORDERED: ACETAMINOPHEN 325 MG TAB PO PRN (18:30)
[2016-07-02] MEDS ORDERED: SODIUM CHLORIDE 0.9% FLUSH 10 ML FLUSH IV FLUSH PRN (18:30)
[2016-07-02] MEDS ORDERED: DEXTROSE 50% IN WATER 50 ML VIAL(D50) IV PUSH PRN (18:30)
[2016-07-02] MEDS ORDERED: GLUCAGON 1 MG/ML VIAL OTHER PRN (18:30)
[2016-07-02] MEDS ORDERED: RESP: ALBUTEROL 2.5 MG/IPRATROPIUM 0.5 MG NEB (PRN) NEB (18:45)
--- NOTE | 2016-07-02 19:30 | RADRPT ---
EXAM DATE/TIME: 07/02/2016 18:28 [facility] COMPARISON: CHEST SINGLE AP, May 25, 2016, 15:30. INDICATIONS : Chest pain, shortness of breath MEDICAL HISTORY : Chronic obstructive pulmonary disease. SURGICAL HISTORY : CABG. Coronary artery stent. Pacemaker. ENCOUNTER: Initial ACUITY: 2 days PAIN SCORE: 4/10 LOCATION: chest FINDINGS: The lungs are clear without infiltrate, nodule, or mass. There is no appreciable pleural effusion fo r technique. There is evidence for prior median sternotomy. Slight cardiomegaly has not changed. Left subclavian transvenous pacer wires are present with tips in the right atrium and right ventricle. CONCLUSION: No acute cardiopulmonary disease. Jacinto Monroe MD on July 02, 2016 at 19:28 Board Certified Radiologist. This report was verified electronically.
[2016-07-02 20:00] LABS: CREATINE KINASE 118 U/L (39-308)
[2016-07-02] MEDS: SODIUM CHLORIDE 0.9% FLUSH 10 ML FLUSH IV FLUSH SCH (20:55)
[2016-07-02] MEDS: INSULIN ASPART SUPPLEMENTAL SCALE SQ SCH (21:00)
[2016-07-02] MEDS ORDERED: COMBIVENT RESPIMAT INH SCH (21:00)
[2016-07-02] MEDS ORDERED: PILL SPLITTER OTHER PRN (22:45)
[2016-07-02] MEDS: SOTALOL HCL 80 MG TAB PO SCH (22:49)
[2016-07-02] MEDS: OLOPATADINE HCL 0.1% OPHT SOLN 5 ML BTL EACH EYE SCH (22:49)
[2016-07-02] MEDS: SACUBITRIL/VALSARTAN 24 MG-26 MG TAB PO SCH (22:50)
[2016-07-02] MEDS: ONDANSETRON HCL 4 MG/2 ML VIAL IVP PRN (22:53)
[2016-07-03] VITALS (8 sets, daily range): BP systolic 115–147; BP diastolic 60–74; PULSE 65–74; RESP 18–19; TEMP 97.8–98.7; O2SAT 92–95
[2016-07-03] MEDS: INSULIN ASPART SUPPLEMENTAL SCALE SQ SCH ×4 (06:34→21:12)
[2016-07-03 07:05] LABS: AUTOMATED NEUTROPHIL # 4.1 TH/MM3 (1.8-7.7); BASOPHIL % 0.7 % (0.0-2.0); EOSINOPHIL # 0.1 TH/MM3 (0-0.4); EOSINOPHIL % 2.4 % (0.0-4.0); HEMATOCRIT 37.8 % (39.0-51.0); HEMO FLAGS DIFF FINAL; LYMPH % 17.4 % (9.0-44.0); LYMPHOCYTE # 1.1 TH/MM3 (1.0-4.8); MEAN CELL VOLUME 93.1 FL (80.0-100.0); MEAN CORPUSCULAR HEMOGLOBIN 31.6 PG (27.0-34.0); NEUT % 67.5 % (16.0-70.0); PLATELET COUNT 123 TH/MM3 (150-450); RED BLOOD COUNT 4.06 MIL/MM3 (4.50-5.90); RED CELL DISTRIBUTION WIDTH 15.2 % (11.6-17.2); WHITE BLOOD COUNT 6.1 TH/MM3 (4.0-11.0)
[2016-07-03 07:32] LABS: ALKALINE PHOSPHATASE 77 U/L (45-117); ALT (GPT) 54 U/L (12-78); ANION GAP 9 MEQ/L (5-15); AST (GOT) 70 U/L (15-37); BICARBONATE 26.2 MEQ/L (21.0-32.0); BLOOD UREA NITROGEN 15 MG/DL (7-18); CHLORIDE 97 MEQ/L (98-107); GLOMERULAR FILTRATION RATE 92 ML/MIN (>89); POTASSIUM 4.5 MEQ/L (3.5-5.1); SODIUM (NA) 132 MEQ/L (136-145); TOTAL BILIRUBIN ADULT 1.9 MG/DL (0.2-1.0)
[2016-07-03] MEDS: ONDANSETRON HCL 4 MG/2 ML VIAL IVP PRN ×2 (08:40→14:38)
[2016-07-03] MEDS: ASPIRIN EC 81 MG TABEC PO SCH (08:40)
[2016-07-03] MEDS: SOTALOL HCL 80 MG TAB PO SCH ×2 (08:40→21:08)
[2016-07-03] MEDS: OLOPATADINE HCL 0.1% OPHT SOLN 5 ML BTL EACH EYE SCH ×2 (08:40→21:07)
[2016-07-03] MEDS: SERTRALINE HCL 50 MG TAB PO SCH (08:40)
[2016-07-03] MEDS: SODIUM CHLORIDE 0.9% FLUSH 10 ML FLUSH IV FLUSH SCH ×2 (08:41→21:07)
[2016-07-03] MEDS: ATORVASTATIN 40 MG TAB PO SCH (08:41)
[2016-07-03] MEDS: SACUBITRIL/VALSARTAN 24 MG-26 MG TAB PO SCH ×2 (08:41→21:07)
--- NOTE | 2016-07-03 08:55 | HHI.PR ---
Subjective Remarks Follow up for lightheadedness, near syncope, NSVT. The patient states he doesn' t feel well again today. He reports headache, lightheadedness, and unsteady balance with ambulation. He states this has been going on for about a month but however worse over the past couple days. Denies any chest pains but does sometimes feel some palpitations in his chest. Telemetry reviewed, no events recorded overnight since being in CDU. He also reports recent diarrhea 2-3x per day. Denies abdominal pain, nausea/vomiting. Denies fevers/chills. 1100hrs: Patient reporting chest tightness. Obtained stat EKG which was unremarkable. Troponins ordered. Administering Nitro. Objective Vitals Vital Signs Date Time Temp Pulse Resp B/P Pulse Ox O2 Delivery O2 Flow Rate FiO2 07/03/16 07:59 97.9 74 18 138/74 93 07/03/16 04:52 72 07/03/16 04:45 98.7 73 18 147/72 92 07/02/16 22:06 97.8 69 18 137/77 92 07/02/16 21:04 83 18 141/73 95 Nasal Cannula 2 07/02/16 20:00 97 Nasal Cannula 2.00 07/02/16 18:23 95 Nasal Cannula 2.00 07/02/16 17:07 72 18 130/76 95 07/02/16 15:05 77 126/81 78 139/81 79 138/77 07/02/16 14:42 77 18 149/78 94 Nasal Cannula 2 07/02/16 14:42 77 16 92 Nasal Cannula 2 I/O 07/02/16 07/02/16 07/02/16 07/03/16 07/03/16 07/03/16 07:00 15:00 23:00 07:00 15:00 23:00 Intake Total 221 ml Output Total 700 ml Balance -479 ml Intake Oral 221 ml Output Urine Total 700 ml # Voids 1 # Bowel Movements 1 Result Diagram: 07/03/16 0624 07/03/16 0624 Imaging Last Impressions Chest X-Ray 07/02/16 0000 Signed Impressions: Service Date/Time: June 18:28 - CONCLUSION: No acute cardiopulmonary disease. Jacinto Monroe MD Objective Remarks GENERAL: Well-nourished, well-developed male patient in [facility]. SKIN: Warm and dry. No rash. HEENT: Normocephalic. Atraumatic.Pupils equal and round. No scleral icterus. No injection or drainage. Mucous membranes pink and moist. NECK: Supple. Trachea midline. CARDIOVASCULAR: Regular rate and rhythm. S1, S2 noted. No murmur appreciated. RESPIRATORY: No accessory muscle use. Clear to auscultation. Breath sounds equal bilaterally. GASTROINTESTINAL: Abdomen soft, non-tender, nondistended. Normoactive bowel sounds x4. MUSCULOSKELETAL: No obvious deformities. Extremities without clubbing, cyanosis , or edema. NEUROLOGICAL: Awake and alert. No obvious cranial nerve deficits. Motor grossly within normal limits. 5/5 muscle strength in bilateral upper and lower extremities. Normal speech. PSYCHIATRIC: Appropriate mood and affect; insight and judgment normal. Medications and IVs Current Medications Medications (Trade) Dose Ordered Sig/Yakelin Route Start Time Stop Time Status Last Admin (Ecotrin Ec) 81 mg DAILY PO 07/03/16 09:00 07/03/16 08:40 (Lipitor) 40 mg DAILY PO 07/03/16 09:00 07/03/16 08:41 (Flonase Kahlil Spr) 2 spray DAILY EACH NARE 07/03/16 09:00 (Entresto 24-26 Mg) 1 tab BID PO 07/02/16 21:00 07/03/16 08:41 (Zoloft) 50 mg DAILY PO 07/03/16 09:00 07/03/16 08:40 Patient Own Medication PT OWN MED: TONE... DAILY SQ 07/03/16 09:00 Future Hold Patient Own Medication PT OWN MED: COMBIV... BID INH 07/02/16 21:00 Hold (Patanol 0.1% Opth) 1 drop BID EACH EYE 07/02/16 21:00 07/03/16 08:40 (Betapace) 120 mg BID PO 07/02/16 21:00 07/03/16 08:40 (NS Flush) 2 ml UNSCH PRN IV FLUSH 07/02/16 18:30 07/02/16 22:53 (NS Flush) 2 ml BID IV FLUSH 07/02/16 21:00 07/03/16 08:41 (Tylenol) 650 mg Q4H PRN PO 07/02/16 18:30 07/03/16 02:02 (Zofran Inj) 4 mg Q6H PRN IVP 07/02/16 18:30 07/03/16 08:40 (Milk Of Martha Liq) 30 ml Q12H PRN PO 07/02/16 18:30 (Narcan Inj) 0.4 mg UNSCH PRN IV 07/02/16 18:30 (D50w (Vial) Inj) 25 ml UNSCH PRN IV PUSH 07/02/16 18:30 (Glucagon Inj) 1 mg UNSCH PRN OTHER 07/02/16 18:30 (Pill Splitter) 1 ea UNSCH PRN OTHER 07/02/16 22:45 Urinary Catheter: No Vascular Central Line Catheter: No A/P Assessment and Plan 65-year-old male with past medical history of CAD, CHF, HLD, DM, PVD, anxiety/ depression, cirrhosis, COPD, ventricular arrhythmia who presented with lightheadedness Lightheadedness/dizziness/Near syncope/Shortness of breath and dyspnea on exertion - Suspect secondary to underlying cardiac etiology Orthostatics negative. Labs essentially unremarkable. Chest x-ray images reviewed, unremarkable ACS ruled out with negative serial cardiac enzymes x2 and EKG without acute ischemic changes Check carotid U/S Check echocardiogram Monitor on telemetry Consult patient's crime prevention police officer PT belle Chest Tightness: r/out ACS. Episode of chest tightness in hospital at 1100hrs today 07/03 Obtained stat EKG, reviewed by me, which showed no acute ischemic changes Prior 2 troponins negative, however with repeat serial cardiac enzymes and EKG to rule out ACS Nitro prn, Morphine prn Continue patient's aspirin, statin, sotalol Diarrhea: No signs of dehydration on lab or exam, but could definitely contribute to symptoms as above. Check stool studies. Imodium prn. Diabetes mellitus: Continue home baseline insulin. Additional sliding scale coverage. Monitor Accu-Cheks. Systolic CHF/CAD/HLD/ventricular arrhythmia: Continue aspirin, statin, Entresto , sotalol. COPD: Chronic, stable. Continue home Combivent. O2 and Nebs as needed. DVT prophylaxis: SCDs Written by Idalia Barron, acting as scribe for Dr. Arrieta on 07/03/16 at 09:24 All or portions of this note were transcribed by scribe OPAL Farr. I , Dr. Hoang Arrieta personally performed the history, physical exam, and medical decision making; and confirmed the accuracy of the information in the transcribed note. Authenticated by Dr. Hoang Arrieta on 07/03/16 at 17:31. Idalia Barron PA-C Jul 03, 2016 8:55 am Olga Arrieta DO Jul 03, 2016 5:31 pm
[2016-07-03] MEDS ORDERED: TRESIBA SQ SCH (09:00)
[2016-07-03] MEDS ORDERED: [UNRECOGNIZED DRUG - OTHER] SQ SCH (09:00)
[2016-07-03] MEDS: FLUTICASONE PROPIONATE 50 MCG/ACT 16 GM NASAL SPRAY EACH NARE SCH (09:53)
[2016-07-03] MEDS: MAGNESIUM SULFATE 1 GM PREMIX 100 ML IV SCH ×2 (09:53→11:10)
[2016-07-03] MEDS: LOPERAMIDE HCL 2 MG CAP PO PRN ×2 (10:03→16:04)
[2016-07-03 10:55] LABS: FREE T4 1.19 NG/DL (0.76-1.46)
[2016-07-03] MEDS ORDERED: MORPHINE SULFATE 4 MG/ML INJ IV PRN (11:00)
[2016-07-03] MEDS ORDERED: NITROGLYCERIN 0.4 MG SL 25 TABS/BTL SL PRN (11:00)
[2016-07-03 11:41] LABS: CREATINE KINASE 93 U/L (39-308)
[2016-07-03 12:14] LABS: C. DIFF EPI 027 PRESUMPTIVE NEGATIVE (NEGATIVE); C. DIFF TOXIN PCR NEGATIVE (NEGATIVE)
--- NOTE | 2016-07-03 12:20 | EC ---
Study Study Date:07/03/2016 STUDY CONCLUSIONS SUMMARY - Left ventricle: The cavity size was normal. Wall thickness was normal. Systolic function was severely reduced. The estimated ejection fraction was in the range of 20% to 25%. Diffuse hypokinesis. - Mitral valve: Mild to moderate regurgitation. - Tricuspid valve: Mild regurgitation. If LV function is below 40, please consider prescribing an ACEI or ARB or document rationale for non-use. PROCEDURE DATA STUDY STATUS: Elective. Procedure: Transthoracic echocardiography. Image quality was good. Scanning was performed from the parasternal, apical, and subcostal acoustic windows. Study completion: The patient tolerated the procedure well. Transthoracic echocardiography. M-mode, complete 2D, complete spectral Doppler, and color Doppler. Patient status: Inpatient. CARDIAC ANATOMY LEFT VENTRICLE: The cavity size was normal. Wall thickness was normal. Systolic function was severely reduced. The estimated ejection fraction was in the range of 20% to 25%. Diffuse hypokinesis. AORTIC VALVE: Trileaflet; normal thickness leaflets. Doppler: Transvalvular velocity was within the normal range. There was no stenosis. No regurgitation. AORTA: Aortic root: The aortic root was normal in size. MITRAL VALVE: Structurally normal valve. Doppler: Transvalvular velocity was within the normal range. There was no evidence for stenosis. Mild to moderate regurgitation. LEFT ATRIUM: The atrium was normal in size. RIGHT VENTRICLE: The cavity size was normal. Wall thickness was normal. PULMONIC VALVE: Doppler: Transvalvular velocity was within the normal range. There was no evidence for stenosis. No regurgitation. TRICUSPID VALVE: Structurally normal valve. Doppler: Transvalvular velocity was within the normal range. Mild regurgitation. PULMONARY ARTERY: The main pulmonary artery was normal-sized. Systolic pressure was within the normal range. RIGHT ATRIUM: The atrium was normal in size. PERICARDIUM: There was no pericardial effusion. SYSTEMIC VEINS: Inferior vena cava: The vessel was normal in size. BASIC MEASUREMENTS ADULT NORMAL Left ventricle LV internal dimension, ED, chordal level, *52.4 mm 43-52 PLAX LV internal dimension, ES, chordal level, *49.3 mm 23-38 PLAX Fractional shortening, chordal level, PLAX *6 % >29 LV posterior wall thickness, ED 11.7 mm IVS/LVPW ratio, ED 1.02 <1.3 Ventricular septum Septal thickness, ED 11.9 mm Aortic valve Leaflet separation 20 mm 15-26 Right ventricle RV internal dimension, ED, PLAX 33 mm 19-38 BASIC MEASUREMENTS ADULT NORMAL Aortic valve Leaflet separation 20 mm 15-26 Aorta Root diameter, ED 32 mm 20-37 Left atrium Anterior-posterior dimension, ES *49 mm 19-40 LA/aortic root ratio 1.53 DOPPLER MEASUREMENTS ADULT NORMAL Mitral valve Peak E-wave velocity 57.3 cm/s Peak A-wave velocity 102 cm/s Peak E/A ratio 0.6 LEGEND: Mean values are shown as u=mean value. Asterisk (*) elise values outside specified normal range. Prepared and signed by Rogelio Skinner [id number]
--- NOTE | 2016-07-03 13:33 | EKG ---
Date Performed: 07/02/2016 Time Performed: 14:52:13 PTAGE: 65 years EKG: ELECTRONIC VENTRICULAR PACEMAKER ABNORMAL RHYTHM ECG Compared to prior tracing no significa nt change PREVIOUS TRACING : 06/24/2016 05.08 DOCTOR: Vito Pete Interpretating Date/Time 07/03/2016 13:32:48
--- NOTE | 2016-07-03 13:33 | EKG ---
Date Performed: 07/02/2016 Time Performed: 21:00:24 PTAGE: 65 years EKG: ELECTRONIC VENTRICULAR PACEMAKER ABNORMAL RHYTHM ECG Compared to prior tracing no significa nt change PREVIOUS TRACING : 07/02/2016 14.52 DOCTOR: Vito Pete Interpretating Date/Time 07/03/2016 13:32:38
--- NOTE | 2016-07-03 13:33 | EKG ---
Date Performed: 07/03/2016 Time Performed: 02:36:21 PTAGE: 65 years EKG: ELECTRONIC VENTRICULAR PACEMAKER MARKED ST DEPRESSION, CONSIDER SUBENDOCARDIAL INJURY ABNO RMAL ECG Compared to prior tracing no significant change PREVIOUS TRACING : 07/02/2016 21.00 DOCTOR: Vito Pete Interpretating Date/Time 07/03/2016 13:32:30
--- NOTE | 2016-07-03 14:49 | RADRPT ---
EXAM DATE/TIME: 07/03/2016 13:46 [facility] COMPARISON: No previous studies available for comparison. INDICATIONS : Syncope. MEDICAL HISTORY : Chronic obstructive pulmonary disease. Congestive heart failure. Myocardial inf arction. Tremors. Syncope. Orthostatic hypotension. Neuropathy. CAD. Hypercholesterolemia. Anticoagul ant therapy. Atrial fibrillation. Hypertension. Asthma. Diabetes. GERD. Cirrhosis. SURGICAL HISTORY : CABG. Cardiac catheterization. Coronary stent. Pacemaker. ENCOUNTER: Initial ACUITY: 1 day PAIN SCORE: 0/10 LOCATION: Bilateral neck PEAK SYSTOLIC VELOCITIES (cm/sec): ICA/CCA RATIO: Right: 1.1 Left: 0.9 ICA: Right: 69 Left: 61 CCA: Right: 63 Left: 68 ECA: Right: 130 Left: 153 VERTEBRAL: Right: 46 antegrade Left: 39 antegrade Elevated flow velocities and ICA/CCA ratios have been found to correlate with increased degrees of vessel stenosis, calculated as percentage of diameter relative to a normal segment of distal ICA/CCA FINDINGS: RIGHT CAROTID: No significant stenosis is visualized. The waveforms are within normal limits. LEFT CAROTID: No significant stenosis is visualized. The waveforms are within normal limits. VERTEBRAL ARTERIES: Antegrade flow is seen in both vertebral arteries. MISCELLANEOUS: None. CONCLUSION: Negative for significant stenosis Enoc Gómez MD FACR on July 03, 2016 at 14:47 Board Certified Radiologist. This report was verified electronically.
[2016-07-03 16:01] LABS: HEMOGLOBIN A1a 1.2 %; HEMOGLOBIN A1b 1.7 %; HEMOGLOBIN Ao 82.4 %; HEMOGLOBIN LA1C 1.8 %; HEMOGLOBIN P3 3.6 %
[2016-07-03 17:33] LABS: CREATINE KINASE 109 U/L (39-308)
[2016-07-03 17:46] LABS: CKMB 2.4 NG/ML (0.5-3.6)
--- NOTE | 2016-07-03 19:27 | MB ---
cc: JHONNY FRANKLIN DATE OF CONSULTATION 07/03/16 REASON FOR CONSULTATION Dizziness, near syncope. HISTORY OF PRESENT ILLNESS Mr. Sutherland is a 65-year-old gentleman history of coronary artery disease, ventricular tachycardia, severe peripheral vascular disease, previous ventricular tachycardia ablation aborted because of severe occlusion. The gentleman is on Sotalol, was doing well, began with dizziness and now is here. He was brought to the emergency room. Interrogation of the defibrillator during hospitalization indicated no shock. No therapy delivered. I was consulted for evaluation and management. The chart was reviewed. The patient was evaluated. ALLERGIES None. SOCIAL HISTORY Negative for smoking and drinking. FAMILY HISTORY Noncontributory to his current medical condition. MEDICATIONS At home, 1. Sotalol 120 mg twice a day. 2. Atorvastatin 40 mg a day. 3. Insulin. 4. Aspirin 5. Entresto 6. Thiamine. 7. Vitamin D. REVIEW OF SYSTEMS He refers feeling nauseated. No chest pain or chest discomfort. PHYSICAL EXAMINATION GENERAL: Alert, fully oriented. VITAL SIGNS: Blood pressure currently is 120/63, pulse 68, respiratory rate 89. LUNGS: Ventilated CARDIOVASCULAR: S1-S2 regular. No gallop. ABDOMEN: Soft. No mass. Obese. Extremities: No edema. CARDIOLOGY STUDIES Electrocardiogram BiV pacing. LABORATORY DATA Hemoglobin is 12.8, white blood cell 6.1, potassium 4.5, creatinine 0.84. Sodium 132, troponin less than 0.02. TSH 7.24. ASSESSMENT AND RECOMMENDATIONS Mr. Sutherland is currently stable. No ventricular tachycardia recorded. No tachyarrhythmia seen on device interrogation. Blood pressure is adequate. There is no bradycardia. He is on Sotalol and Entresto. At this point, I will continue with current management. Case extensively discussed with him. The gentleman has end stage heart disease. He is not a candidate for transplant. He is aware of that. Also, I believe the gentleman may be experiencing depression. He lives by himself. He is taken care of by his sister. Mental health evaluation may be necessary during hospitalization. TSH is high at 7.24. Thyroid needs to be evaluated. As mentioned before, continue with current medical management. I will be available on a p.r.n. basis. Can be discharged home whenever it is okay with the managing team. MD TJ Zambrano /2:21 PM /7:14 PM
[2016-07-03] MEDS ORDERED: IOHEXOL 350 MG/ML 10 ML VIAL (for RAD DIAG) IV ONE (20:47)
--- NOTE | 2016-07-03 21:08 | RADRPT ---
EXAM DATE/TIME: 07/03/2016 20:20 [facility] COMPARISON: No previous studies available for comparison. INDICATIONS : Chest pain and dizziness. IV CONTRAST: 70 cc Omnipaque 350 (iohexol) IV RADIATION DOSE: 14.88 CTDIvol (mGy) MEDICAL HISTORY : Myocardial infarction. Hypertension. Chronic obstructive pulmonary disease. SURGICAL HISTORY : Pacemaker. CABG ENCOUNTER: Initial ACUITY: 1 day PAIN SCALE: 5/10 LOCATION: Bilateral chest TECHNIQUE: Volumetric scanning of the chest was performed using a pulmonary embolism protocol MIP images were re constructed. Using automated exposure control and adjustment of the mA and/or kV according to patien t size, radiation dose was kept as low as reasonably achievable to obtain optimal diagnostic quality images. FINDINGS: PULMONARY ARTERIES: No filling defects are seen in the pulmonary arteries through the segmental level. LUNGS: There are calcified granulomas at the lower lobes bilaterally. PLEURAE: There is no pleural thickening or pleural effusion. MEDIASTINUM: There is good visualization of the great vessels of the middle mediastinum. No evidence of mediastin al or hilar adenopathy/mass. The patient is status post sternotomy. There is a multilead pacing devic e in place. The left ventricle appears enlarged. MUSCULOSKELETAL: Within normal limits for patient age. MISCELLANEOUS: The visualized upper abdominal organs demonstrate no acute abnormality. CONCLUSION: 1. No pulmonary embolus. 2. Calcified granulomas. 3. Cardiomegaly. The left ventricle appears enlarged. The patient is status post sternotomy and has a multilead pacing device in place. Shawn Oscar MD on July 03, 2016 at 21:03 Board Certified Radiologist. This report was verified electronically.
[2016-07-04 00:16] VITALS: BP 116/67; PULSE 65; RESP 18; TEMP 98.8; O2SAT 98
[2016-07-04 04:52] VITALS: BP 129/70; PULSE 66; RESP 18; TEMP 98.8; O2SAT 92
[2016-07-04] MEDS: INSULIN ASPART SUPPLEMENTAL SCALE SQ SCH ×2 (06:40→12:37)
[2016-07-04 07:22] VITALS: O2SAT 94
[2016-07-04 08:00] VITALS: PULSE 69
[2016-07-04 09:10] VITALS: BP 127/67; PULSE 70; RESP 18; TEMP 97.5; O2SAT 96
[2016-07-04] MEDS: SACUBITRIL/VALSARTAN 24 MG-26 MG TAB PO SCH (09:29)
[2016-07-04] MEDS: ATORVASTATIN 40 MG TAB PO SCH (09:29)
[2016-07-04] MEDS: ASPIRIN EC 81 MG TABEC PO SCH (09:29)
[2016-07-04] MEDS: FLUTICASONE PROPIONATE 50 MCG/ACT 16 GM NASAL SPRAY EACH NARE SCH (09:29)
[2016-07-04] MEDS: SERTRALINE HCL 50 MG TAB PO SCH (09:29)
[2016-07-04] MEDS: SOTALOL HCL 80 MG TAB PO SCH (09:29)
[2016-07-04] MEDS: OLOPATADINE HCL 0.1% OPHT SOLN 5 ML BTL EACH EYE SCH (09:30)
[2016-07-04] MEDS: SODIUM CHLORIDE 0.9% FLUSH 10 ML FLUSH IV FLUSH SCH (09:31)
--- NOTE | 2016-07-04 10:22 | HHI.PR ---
Subjective Remarks Follow up for lightheadedness, near syncope, NSVT. The patient reports no further episodes of lightheadedness or near syncope. No events on telemetry. Denies any chest pain or shortness of breath. The patient admits to feeling slightly depressed and anxious recently. He states he's been on sertraline for awhile now which isn't helping. He states he was on Klonopin many years ago which worked well for him, he would like to go back on Klonopin. Objective Vitals Vital Signs Date Time Temp Pulse Resp B/P Pulse Ox O2 Delivery O2 Flow Rate FiO2 07/04/16 09:10 97.5 70 18 127/67 96 07/04/16 07:22 94 21 07/04/16 04:52 98.8 66 18 129/70 92 07/04/16 00:16 98.8 65 18 116/67 98 07/03/16 20:00 72 07/03/16 20:00 94 07/03/16 19:55 98.7 66 19 117/66 95 07/03/16 16:44 65 18 115/60 95 07/03/16 13:34 93 21 07/03/16 12:28 97.8 68 18 120/63 95 Result Diagram: 07/03/16 0624 07/03/16 0624 Imaging Last Impressions Carotid Artery Ultrasound 07/03/16 0000 Signed Impressions: Service Date/Time: Sunday, July 03, 2016 13:46 - CONCLUSION: Negative for significant stenosis Enoc Gómez MD FACR CT Angiography 07/03/16 0000 Signed Impressions: Service Date/Time: Sunday, July 03, 2016 20:20 - CONCLUSION: 1. No pulmonary embolus. 2. Calcified granulomas. 3. Cardiomegaly. The left ventricle appears enlarged. The patient is status post sternotomy and has a multilead pacing device in place. Shawn Oscar MD Chest X-Ray 07/02/16 0000 Signed Impressions: Service Date/Time: June 18:28 - CONCLUSION: No acute cardiopulmonary disease. Jacinto Monroe MD Objective Remarks GENERAL: Well-nourished, well-developed male patient in [facility]. SKIN: Warm and dry. No rash. HEENT: Normocephalic. Atraumatic.Pupils equal and round. No scleral icterus. No injection or drainage. Mucous membranes pink and moist. NECK: Supple. Trachea midline. CARDIOVASCULAR: Regular rate and rhythm. S1, S2 noted. No murmur appreciated. RESPIRATORY: No accessory muscle use. Clear to auscultation. Breath sounds equal bilaterally. GASTROINTESTINAL: Abdomen soft, non-tender, nondistended. Normoactive bowel sounds x4. MUSCULOSKELETAL: No obvious deformities. Extremities without clubbing, cyanosis , or edema. NEUROLOGICAL: Awake and alert. No obvious cranial nerve deficits. Motor grossly within normal limits. 5/5 muscle strength in bilateral upper and lower extremities. Normal speech. PSYCHIATRIC: Appropriate mood and affect; insight and judgment normal. Medications and IVs Current Medications Medications (Trade) Dose Ordered Sig/Yakelin Route Start Time Stop Time Status Last Admin (Ecotrin Ec) 81 mg DAILY PO 07/03/16 09:00 07/04/16 09:29 (Lipitor) 40 mg DAILY PO 07/03/16 09:00 07/04/16 09:29 (Flonase Kahlil Spr) 2 spray DAILY EACH NARE 07/03/16 09:00 07/04/16 09:29 (Entresto 24-26 Mg) 1 tab BID PO 07/02/16 21:00 07/04/16 09:29 (Zoloft) 50 mg DAILY PO 07/03/16 09:00 07/04/16 09:29 Patient Own Medication PT OWN MED: TONE... DAILY SQ 07/03/16 09:00 Hold Patient Own Medication PT OWN MED: COMBIV... BID INH 07/02/16 21:00 Hold (Patanol 0.1% Opth) 1 drop BID EACH EYE 07/02/16 21:00 07/04/16 09:30 (Betapace) 120 mg BID PO 07/02/16 21:00 07/04/16 09:29 (NS Flush) 2 ml UNSCH PRN IV FLUSH 07/02/16 18:30 07/02/16 22:53 (NS Flush) 2 ml BID IV FLUSH 07/02/16 21:00 07/04/16 09:31 (Tylenol) 650 mg Q4H PRN PO 07/02/16 18:30 07/03/16 02:02 (Zofran Inj) 4 mg Q6H PRN IVP 4/6/17 18:30 07/03/16 14:38 (Milk Of Magnesia Liq) 30 ml Q12H PRN PO 07/02/16 18:30 (Narcan Inj) 0.4 mg UNSCH PRN IV 07/02/16 18:30 (D50w (Vial) Inj) 25 ml UNSCH PRN IV PUSH 07/02/16 18:30 (Glucagon Inj) 1 mg UNSCH PRN OTHER 07/02/16 18:30 (Pill Splitter) 1 ea UNSCH PRN OTHER 07/02/16 22:45 (Imodium) 2 mg Q6H PRN PO 07/03/16 09:30 07/03/16 16:04 (Nitrostat Sl) 0.4 mg Q5M PRN SL 07/03/16 11:00 07/03/16 11:10 (Morphine Inj) 2 mg Q2H PRN IV 07/03/16 11:00 Urinary Catheter: No Vascular Central Line Catheter: No A/P Assessment and Plan 65-year-old male with past medical history of CAD, CHF, HLD, DM, PVD, anxiety/ depression, cirrhosis, COPD, ventricular arrhythmia who presented with lightheadedness Lightheadedness/dizziness/Near syncope/Shortness of breath and dyspnea on exertion - Possibly secondary to underlying cardiac etiology Orthostatics negative. Labs essentially unremarkable. Chest x-ray images reviewed, unremarkable ACS ruled out with negative serial cardiac enzymes x2 and EKG without acute ischemic changes Carotid U/S unremarkable Echocardiogram with EF 20-25%, mild-mod MR, mild TR Monitor on telemetry, no acute events Consult patient's sanitation technician, appreciate recommendations, no further work up, cleared for discharge PT eval, recommends [facility], case management consulted to arrange Of note, patient does report hypotensive episodes at home with SBP into the upper 70s which occurred mostly after starting Entresto. Discussed extensively with the patient, he has an appt with Dr. Davenport next week, recommended discussion to adjust medications. Also recommended recording daily blood pressures, and only take Lasix prn or take 10mg instead of 20mg, especially if he notices his systolic blood pressure < 110. Chest Tightness: r/out ACS. Episode of chest tightness in hospital at 1100hrs today 07/03 EKGs reviewed by me, showed no acute ischemic changes ACS ruled out with negative serial cardiac enzymes x4 Nitro prn, Morphine prn Continue patient's aspirin, statin, sotalol CT-PA images reviewed, negative for PE Cardiology consulted, no further work up, cleared for d/c No further episodes of chest pain Diarrhea: No signs of dehydration on lab or exam, but could definitely contribute to symptoms as above. Cdiff negative. Stool studies pending. Imodium prn. Symptoms improved. Diabetes mellitus: The patient was recently placed on Tresiba 95u daily in addition to Metformin which the patient states makes him ill. Monitored Accu-cheks and covered only with SSI while here, Hgb A1c 8.6 (much improved from 14.7 in June2015) and blood sugars ranged 100-164. Discussed extensively with the patient, 95u likely too much insulin. Will discontinue Tresiba and Metformin. Started on Levemir 5u sq hs for now, instructed to titrate 1-2u a day if morning blood sugar > 200 Also started on Novolog 3u tidac in addition to Novolog low dose SSI Patient instructed record blood glucose at home, and f/up with PCP Dr. Mota and Reinsurance Claims Analyst Systolic CHF/CAD/HLD/ventricular arrhythmia: Continue aspirin, statin, Entresto , sotalol. COPD: Chronic, stable. Continue home Combivent. O2 and Nebs as needed. DVT prophylaxis: SCDs Written by Idalia Barron, acting as scribe for Dr. Arrieta on 07/04/16 at 12:10 All or portions of this note were transcribed by OPAL Rasheed. I , Dr. Hoang Arrieta personally performed the history, physical exam, and medical decision making; and confirmed the accuracy of the information in the transcribed note. Authenticated by Dr. Hoang Arrieta on 07/04/16 at 23:15. Discharge Planning Discharge patient to home with [facility] PT/Nursing Condition on discharge: Improved Heart Healthy/Diabetic Diet as tolerated Ad Enma activity Rx written: Clonazepam 0.5mg tid #90, Lasix 20mg daily prn, Levemir 5u sq hs, Novolog 3u tid ac and low dose Novolog SSI Follow-up with primary care physician Dr. Mota within 2-3 days [address] sanitation technician [address] Davenport as scheduled next week Idalia Barron PA-C Jul 04, 2016 10:22 Olga Arrieta DO Jul 04, 2016 23:16
--- NOTE | 2016-07-04 11:59 | HHI.FF ---
Face to Face Verification Diagnosis: (1) Lightheadedness (2) Chest pain (3) Type 2 diabetes mellitus (4) CHF (congestive heart failure) (5) CAD (coronary artery disease) (6) Ischemic cardiomyopathy (7) COPD (chronic obstructive pulmonary disease) Physical Therapy Order: Evaluate and Treat, Improve ambulation, Strength and gait training Home Health Nursing Order: Medical education Signs/symptoms of disease process Diabetic education CHF education Nursing assessment with vital signs I have seen patient Jose Sutherland on 07/04/16. My clinical findings support the need for the requested home health care services because: Ltd mobility - disease progression Deconditioned w/ increased weakness Limited ability to care for self I certify that my clinical findings support that this patient is homebound because: Hx COPD- exertion dyspnea/weakness Unsteady gait/balance Unsafe to leave home unassisted Idalia Barron PA-C Jul 04, 2016 11:59 am
[2016-07-04] MEDS ORDERED: NOVOLOGP2 SQ ×2 (12:09)
[2016-07-04] MEDS ORDERED: INSU1INJ5 SQ (12:09)
[2016-07-04] MEDS ORDERED: FURO20TA PO (12:09)
[2016-07-04] MEDS ORDERED: CLON0.5T PO (12:23)
[2016-07-04] MEDS ORDERED: INSU1MIS15 (12:54)
--- NOTE | 2016-07-04 14:41 | EKG ---
Date Performed: 07/03/2016 Time Performed: 16:49:28 PTAGE: 65 years EKG: ELECTRONIC VENTRICULAR PACEMAKER Compared to prior tracing no significant change ABNORMAL R HYTHM ECG PREVIOUS TRACING : 07/03/2016 10.57 DOCTOR: Steve Musa Interpretating Date/Time 07/04/2016 14:38:40
--- NOTE | 2016-07-04 14:41 | EKG ---
Date Performed: 07/03/2016 Time Performed: 10:57:03 PTAGE: 65 years EKG: ELECTRONIC VENTRICULAR PACEMAKER Compared to prior tracing no significant change ABNORMAL R HYTHM ECG PREVIOUS TRACING : 07/03/2016 02.36 DOCTOR: Steve Musa Interpretating Date/Time 07/04/2016 14:38:32
== END 2016-07-04 13:53 | disposition home or self-care (01) ==
LOC: NEPE 14:31 → NEDA 18:58 → NEPGCP 21:55
PROVIDERS: ADMIT Hospitalist; ATTEND Hospitalist
DX: R42 Dizziness and giddiness (principal); R55 Syncope and collapse; R06.00 Dyspnea, unspecified; R19.7 Diarrhea, unspecified; J44.9 Chronic obstructive pulmonary disease, unspecified; I11.0 Hypertensive heart disease with heart failure; I50.20 Unspecified systolic (congestive) heart failure; R07.89 Other chest pain; I25.10 Atherosclerotic heart disease of native coronary artery without angina pectoris; E78.5 Hyperlipidemia, unspecified; E11.51 Type 2 diabetes mellitus with diabetic peripheral angiopathy without gangrene; F41.9 Anxiety disorder, unspecified; F32.9 Major depressive disorder, single episode, unspecified; E78.00 Pure hypercholesterolemia, unspecified; I48.91 Unspecified atrial fibrillation; K21.9 Gastro-esophageal reflux disease without esophagitis; I25.2 Old myocardial infarction; E11.40 Type 2 diabetes mellitus with diabetic neuropathy, unspecified; Z95.1 Presence of aortocoronary bypass graft; Z95.5 Presence of coronary angioplasty implant and graft; Z95.0 Presence of cardiac pacemaker; Z79.82 Long term (current) use of aspirin; Z87.891 Personal history of nicotine dependence; Z79.4 Long term (current) use of insulin; Z95.820 Peripheral vascular angioplasty status with implants and grafts
CPT/HCPCS: 71010; 71275; 76937; 80048; 80053; 82550; 82552; 82948; 83036; 83735; 84439; 84443; 84484; 85025; 87493; 87506; 93005; 93306; 93880; 97162; 99285; G0378; G8987; G8988; J1815; J2405; J3475; Q9967

== ENCOUNTER 2016-07-31 13:38 | Inpatient (IN) | payer OTHER, MEDICARE ==
[2016-07-31] VITALS (10 sets, daily range): BP systolic 77–104; BP diastolic 51–69; PULSE 66–90; RESP 16–22; TEMP 96.5–97.9; O2SAT 96–98
[~2016-07-31] VITALS: Ht 167.6 cm; Wt 89.0 kg
[~2016-07-31 13:38] MED LIST changes: +CLON0.5T PO; -DULA10IN SQ; +FURO20TA PO; -INSU1INJ14 SQ; +INSU1INJ5 SQ; +INSU1MIS15; +NOVOLOGP2 SQ
[2016-07-31] MEDS ORDERED: SODIUM CHLORIDE 0.9% FLUSH 10 ML FLUSH IVF PRN (14:30)
[2016-07-31] MEDS ORDERED: SODIUM CHLORID 0.9% 500 ML INJ 500 ML IV ONE ×2 (14:30→15:30)
--- NOTE | 2016-07-31 14:35 | PD ---
HPI Chief Complaint: Cardiac Complaint Time Seen by Provider: 14:26 Travel History International Travel<30 days: No Contact w/Intl Traveler<30days: No Traveled to known affect area: No History of Present Illness HPI The patient is a 65-year-old male who presents to the emergency department for lightheadedness, dizziness, shortness of breath. The patient has a history of congestive heart failure, triple bypass, stent placement, who recently had his medication changed by his gateman, Dr. Davenport. The patient had his Lasix changed to Bumex 1 mg daily. The patient took his first dose yesterday, states he "peed like a racehorse ". The patient now complains of lightheadedness, dizziness, that is worse with standing upright and mildly alleviated at rest. He also complains of mild shortness of breath associated with lightheadedness and dizziness. The patient does have a history of chronic chest pain, denies any acute changes in his chest pain. He denies any new edema lower extremities and denies any associated nausea, vomiting, diarrhea, or abdominal pain. Symptoms are moderate, exacerbated after taking his new diuretic, and mildly alleviated at rest. PFSH Past Medical History Hx Anticoagulant Therapy: Yes (ASA ) Arthritis: No Asthma: Yes Atrial Fibrillation: Yes Autoimmune Disease: No Blood Disorders: No Anxiety: Yes Depression: Yes Heart Rhythm Problems: Yes Cancer: No Cardiac Catheterization: Yes Cardiovascular Problems: Yes (CHF, HTN ) High Cholesterol: Yes Chemotherapy: No Chest Pain: Yes Congestive Heart Failure: Yes Cirrhosis: Yes COPD: Yes Cerebrovascular Accident: No Diabetes: Yes Patient Takes Glucophage: No Diminished Hearing: No Endocrine: Yes (Diabetes Mellitus) Gastrointestinal Disorders: Yes (ASCITES) GERD: No Glaucoma: No Genitourinary: No Headaches: Yes Hepatitis: No Hiatal Hernia: No Hypertension: Yes Immune Disorder: No Implanted Vascular Access Dvce: Yes Kidney Stones: No Musculoskeletal: No Neurologic: Yes (tremors) Psychiatric: No Reproductive: No Respiratory: Yes (COPD ) Integumentary: No Immunizations Current: No Migraines: No Pneumonia: Yes Radiation Therapy: No Renal Failure: No Seizures: No Sickle Cell Disease: No Sleep Apnea: Yes Thyroid Disease: No Ulcer: No Past Surgical History Abdominal Surgery: Yes (hernia repair) AICD: Yes ([place]/PACER) Arteriovenous Shunt: No Body Medical Devices: STENTS TAYA LEGS [employer] HEART, DEFIBRILLATOR Coronary Artery Bypass Graft: Yes (TRIPLE) Coronary Stent: Yes (X3) Ear Surgery: No Endocrine Surgery: No Eye Surgery: No Genitourinary Surgery: No Gynecologic Surgery: No Insulin Pump: No Joint Replacement: No Oral Surgery: No Pacemaker: Yes (AICD) Other Surgery: Yes (CABG, TAYA [employer].E[employer] STENTS, AICD) Social History Alcohol Use: No (EVERYDAY-FORMER) Tobacco Use: No (QUIT A YEAR AGO ) Substance Use: No Allergies-Medications (Allergen,Severity, Reaction): Coded Allergies: No Known Allergies (Unverified , 07/31/16) Reported Meds & Prescriptions Reported Meds & Active Scripts Active Insulin Syringe/U-100/31G X 08/11" 1 ml 1 Mis Mis 1 Ea .ROUTE DIRECTED Clonazepam 0.5 Mg Tab 0.5 Mg PO TID Furosemide 20 Mg Tab 20 Mg PO DAILY PRN Only take if increased leg swelling or weight gain. Novolog Inj (Insulin Aspart) 1,000 Unit/10 Ml Vial 1-9 Units SQ ACHS sugars less than 70,(0)units sugars 150-199,(1) unit sugars 200-249,(3) units sugars 250-299,(5) units sugars 300-349,(7) units sugars greater than 349,(9) units Novolog Inj (Insulin Aspart) 1,000 Unit/10 Ml Vial 3 Units SQ TIDAC Take before each meal, be sure to eat within 5 minutes. Levemir Flextouch Pen Inj (Insulin Detemir) 300 unit/3 ML Pen 5 Units SQ HS Vitamin B-1 (Thiamine HCl) 100 Mg Tab 100 Mg PO DAILY 30 Days Reported Sotalol (Sotalol HCl) 120 Mg Tab 120 Mg PO BID Sertraline (Sertraline HCl) 50 Mg Tab 50 Mg PO DAILY Entresto (Sacubitril-Valsartan) 24-26 Mg Tab 1 Tab PO BID ZyrTEC Itchy Eye Opth Drops (Ketotifen Opth Drops) 0.025% Drops 1 Drop EACH EYE DAILY Atorvastatin (Atorvastatin Calcium) 40 Mg Tab 40 Mg PO DAILY D3 (Cholecalciferol) 1,000 Unit Tab 1,000 Units PO DAILY Flonase Nasal [place] (Fluticasone Nasal [place]) 50 Mcg/Act [place] 2 [place] EACH NARE DAILY Nitroglycerin SL (Nitroglycerin) 0.4 Mg Subl 0.4 Mg SL DIRECTED ONE TABLET UNDER THE TONGUE NEEDED FOR CHEST PAIN, MAY REPEAT EVERY FIVE MINUTES FOR A TOTAL OF 3 DOSES OR CALL 911 IF NO RELIEF Aspirin 81 Mg Tabdr 81 Mg PO DAILY Combivent Respimat Inh (Ipratropium-Albuterol Inh) 20-100 [place]/Act Aero 2 Puff INH BID Review of Systems Except as stated in HPI: all other systems reviewed are Neg HENT: Positive: Lightheadedness Cardiovascular: Positive: Chest Pain or Discomfort Respiratory: Positive: Shortness of Breath Gastrointestinal: No: Nausea, Vomiting, Abdominal Pain Musculoskeletal: No: Edema Neurologic: Positive: Dizziness Physical Exam Narrative GENERAL: Awake, alert, very pleasant 65-year-old male who appears his stated age and is in no acute respiratory distress. SKIN: Focused skin assessment warm/dry. HEAD: Atraumatic. Normocephalic. EYES: Pupils equal and round. No scleral icterus. No injection or drainage. ENT: No nasal bleeding or discharge. Mucous membranes pink and moist. NECK: Trachea midline. No JVD. CARDIOVASCULAR: Regular rate and rhythm. No murmur appreciated. Well-healed midline sternal scar. RESPIRATORY: No accessory muscle use. Clear to auscultation. Breath sounds equal bilaterally. GASTROINTESTINAL: Abdomen soft, non-tender, nondistended. No rebound tenderness. MUSCULOSKELETAL: No obvious deformities. No clubbing. No cyanosis. No edema. NEUROLOGICAL: Awake and alert. No obvious cranial nerve deficits. Motor grossly within normal limits. Normal speech. PSYCHIATRIC: Appropriate mood and affect; insight and judgment normal. Data Data Last Documented VS Vital Signs Date Time Temp Pulse Resp B/P Pulse Ox O2 Delivery O2 Flow Rate FiO2 07/31/16 15:56 89 16 94/59 97 07/31/16 15:45 Nasal Cannula 2 07/31/16 13:42 97.9 Orders Complete Blood Count With Diff (07/31/16 14:26) Comprehensive Metabolic Panel (07/31/16 14:26) B-Type Natriuretic Peptide (07/31/16 14:26) Magnesium (Mg) (07/31/16 14:26) Ckmb (Isoenzyme) Profile (07/31/16 14:26) Troponin I (07/31/16 14:26) Iv Access Insert/Monitor (07/31/16 14:26) Electrocardiogram (07/31/16 14:26) Ecg Monitoring (07/31/16 14:) Oximetry (07/31/16 14:) Oxygen Administration (07/31/16 14:) Chest, Single Ap (07/31/16 14:) Sodium Chloride 0.9% Flush (Ns Flush) (07/31/16 14:30) Sodium Chlorid 0.9% 500 Ml Inj (Ns 500 M (07/31/16 14:30) Orthostatic Vital Signs (07/31/16 14:26) Sodium Chlorid 0.9% 500 Ml Inj (Ns 500 M (07/31/16 15:30) CKMB (07/31/16 14:40) CKMB% (07/31/16 14:40) Admit Order (Ed Use Only) (07/31/16 16:05) Labs Laboratory Tests Test 07/31/16 14:40 White Blood Count 11.1 TH/MM3 Red Blood Count 4.66 MIL/MM3 Hemoglobin 14.2 GM/DL Hematocrit 43.6 % Mean Corpuscular Volume 93.7 FL Mean Corpuscular Hemoglobin 30.4 PG Mean Corpuscular Hemoglobin 32.5 % Concent Red Cell Distribution Width 15.7 % Platelet Count 125 TH/MM3 Mean Platelet Volume 9.6 FL Neutrophils (%) (Auto) 64.0 % Lymphocytes (%) (Auto) 22.7 % Monocytes (%) (Auto) 11.1 % Eosinophils (%) (Auto) 1.6 % Basophils (%) (Auto) 0.6 % Neutrophils # (Auto) 7.1 TH/MM3 Lymphocytes # (Auto) 2.5 TH/MM3 Monocytes # (Auto) 1.2 TH/MM3 Eosinophils # (Auto) 0.2 TH/MM3 Basophils # (Auto) 0.1 TH/MM3 CBC Comment DIFF FINAL Differential Comment Sodium Level 125 MEQ/L Potassium Level 4.1 MEQ/L Chloride Level 90 MEQ/L Carbon Dioxide Level 22.0 MEQ/L Anion Gap 13 MEQ/L Blood Urea Nitrogen 29 MG/DL Creatinine 1.65 MG/DL Estimat Glomerular Filtration 42 ML/MIN Rate Random Glucose 129 MG/DL Calcium Level 8.3 MG/DL Magnesium Level 1.7 MG/DL Total Bilirubin 1.1 MG/DL Aspartate Amino Transf 117 U/L (AST/SGOT) Alanine Aminotransferase 77 U/L (ALT/SGPT) Alkaline Phosphatase 99 U/L Total Creatine Kinase 205 U/L Creatine Kinase MB 3.9 NG/ML Troponin I LESS THAN 0.02 NG/ML B-Type Natriuretic Peptide 111 PG/ML Total Protein 7.9 GM/DL Albumin 3.2 GM/DL MDM Medical Decision Making Medical Screen Exam Complete: Yes Emergency Medical Condition: Yes Medical Record Reviewed: Yes Interpretation(s) EKG reveals electronic ventricular pacemaker with a rate of 91. Laboratory Tests Test 07/31/16 14:40 White Blood Count 11.1 TH/MM3 Red Blood Count 4.66 MIL/MM3 Hemoglobin 14.2 GM/DL Hematocrit 43.6 % Mean Corpuscular Volume 93.7 FL Mean Corpuscular Hemoglobin 30.4 PG Mean Corpuscular Hemoglobin 32.5 % Concent Red Cell Distribution Width 15.7 % Platelet Count 125 TH/MM3 Mean Platelet Volume 9.6 FL Neutrophils (%) (Auto) 64.0 % Lymphocytes (%) (Auto) 22.7 % Monocytes (%) (Auto) 11.1 % Eosinophils (%) (Auto) 1.6 % Basophils (%) (Auto) 0.6 % Neutrophils # (Auto) 7.1 TH/MM3 Lymphocytes # (Auto) 2.5 TH/MM3 Monocytes # (Auto) 1.2 TH/MM3 Eosinophils # (Auto) 0.2 TH/MM3 Basophils # (Auto) 0.1 TH/MM3 CBC Comment DIFF FINAL Differential Comment Sodium Level 125 MEQ/L Potassium Level 4.1 MEQ/L Chloride Level 90 MEQ/L Carbon Dioxide Level 22.0 MEQ/L Anion Gap 13 MEQ/L Blood Urea Nitrogen 29 MG/DL Creatinine 1.65 MG/DL Estimat Glomerular Filtration 42 ML/MIN Rate Random Glucose 129 MG/DL Calcium Level 8.3 MG/DL Magnesium Level 1.7 MG/DL Total Bilirubin 1.1 MG/DL Aspartate Amino Transf 117 U/L (AST/SGOT) Alanine Aminotransferase 77 U/L (ALT/SGPT) Alkaline Phosphatase 99 U/L Total Creatine Kinase 205 U/L Creatine Kinase MB 3.9 NG/ML Troponin I LESS THAN 0.02 NG/ML B-Type Natriuretic Peptide 111 PG/ML Total Protein 7.9 GM/DL Albumin 3.2 GM/DL Last Impressions Chest X-Ray 07/31/16 1426 Signed Impressions: Service Date/Time: Sunday, July 31, 2016 14:43 - CONCLUSION: No acute disease Shawn Hopper MD Differential Diagnosis Differential diagnosis includes orthostatic hypotension, dehydration, electrolyte abnormality, congestive heart failure, pleural effusion, medication side effect. Narrative Course IV was established, labs are drawn and sent, and the patient was placed on cardiac telemetry monitoring and continuous pulse oximetry monitoring. EKG was ordered and interpreted. Chest x-ray was obtained. The patient was administered normal saline 500 cc intravenously. Chest x-ray reveals cardiomegaly, no acute findings. Creatinine is elevated 1.65, last creatinine was normal, less than 1 in June 2016. Patient's sodium was also low at 125, last sodium was 132 in June 2016. The patient's blood pressure continued to be low and he was symptomatic, therefore, was administered a second bolus of 500 cc normal saline. The patient continued be symptomatic and slightly hypotensive, most likely secondary to medication side effect from Bumex with secondary acute kidney injury, dehydration, hyponatremia, and orthostatic hypotension. The patient has [employer], therefore, [facility] The patient is comfortable with this plan of care. A call was placed to the patient's gateman, Dr. Davenport. Physician Communication Physician Communication [facility] [employer] I discussed the patient with Dr. Eden who agrees with 23 hour observation. Diagnosis Primary Impression: Orthostatic hypotension Additional Impressions: MAYELA (acute kidney injury) Hyponatremia Admitting Information Admitting Physician Requests: Observation Condition: Stable Jeferson Morris MD July 31, 2016 14:35
[2016-07-31 14:49] LABS: AUTOMATED NEUTROPHIL # 7.1 TH/MM3 (1.8-7.7); BASOPHIL # 0.1 TH/MM3 (0-0.2); BASOPHIL % 0.6 % (0.0-2.0); EOSINOPHIL # 0.2 TH/MM3 (0-0.4); EOSINOPHIL % 1.6 % (0.0-4.0); HEMATOCRIT 43.6 % (39.0-51.0); HEMO FLAGS DIFF FINAL; LYMPH % 22.7 % (9.0-44.0); LYMPHOCYTE # 2.5 TH/MM3 (1.0-4.8); MEAN CELL VOLUME 93.7 FL (80.0-100.0); MEAN CORPUSCULAR HEMOGLOBIN 30.4 PG (27.0-34.0); MEAN CORPUSCULAR HGB CONC 32.5 % (32.0-36.0); MONO % 11.1 % (0.0-8.0); PLATELET COUNT 125 TH/MM3 (150-450); RED BLOOD COUNT 4.66 MIL/MM3 (4.50-5.90); RED CELL DISTRIBUTION WIDTH 15.7 % (11.6-17.2); WHITE BLOOD COUNT 11.1 TH/MM3 (4.0-11.0)
--- NOTE | 2016-07-31 15:39 | RADRPT ---
EXAM DATE/TIME: 07/31/2016 14:43 [facility] COMPARISON: CHEST SINGLE AP, July 02, 2016, 18:28. INDICATIONS : Shortness of breath and dizziness. MEDICAL HISTORY : Myocardial infarction. Hypertension. Chronic obstructive pulmonary disease SURGICAL HISTORY : CABG. Triple Bypass, pacemaker, defib. ENCOUNTER: Initial ACUITY: 1 day PAIN SCORE: 0/10 LOCATION: Bilateral chest FINDINGS: Pacemaker device is noted with control pack over the left chest. Lungs are focally clear. No pleural effusion is evident. Cardiac contours are stable. Previous sternotomy is noted. CONCLUSION: No acute disease Shawn Hopper MD on July 31, 2016 at 15:37 Board Certified Radiologist. This report was verified electronically.
[2016-07-31 15:43] LABS: ALKALINE PHOSPHATASE 99 U/L (45-117); ALT (GPT) 77 U/L (12-78); ANION GAP 13 MEQ/L (5-15); BLOOD UREA NITROGEN 29 MG/DL (7-18); CHLORIDE 90 MEQ/L (98-107); CREATINE KINASE 205 U/L (39-308); GLOMERULAR FILTRATION RATE 42 ML/MIN (>89); SODIUM (NA) 125 MEQ/L (136-145); TOTAL BILIRUBIN ADULT 1.1 MG/DL (0.2-1.0)
[2016-07-31 15:44] LABS: AST (GOT) 117 U/L (15-37); MAGNESIUM 1.7 MG/DL (1.5-2.5); POTASSIUM 4.1 MEQ/L (3.5-5.1)
[2016-07-31 15:56] LABS: CKMB 3.9 NG/ML (0.5-3.6)
[2016-07-31] MEDS ORDERED: DEXTROSE 50% IN WATER 50 ML VIAL(D50) IV PUSH PRN (16:15)
[2016-07-31] MEDS ORDERED: GLUCAGON 1 MG/ML VIAL OTHER PRN (16:15)
[2016-07-31] MEDS ORDERED: INSU1INJ14 SQ ×2 (16:21→16:32)
[2016-07-31] MEDS ORDERED: SACU1TAB4 PO (16:21)
[2016-07-31] MEDS ORDERED: SOTA80TA PO (16:26)
[2016-07-31] MEDS ORDERED: BUME1TAB26 PO (16:26)
[2016-07-31] MEDS ORDERED: DULA10IN SQ (16:26)
--- NOTE | 2016-07-31 16:28 | HHI.HP ---
[facility] Venice Mota MD Admission Diagnosis orthostatic hypotension, acute kidney injury, hyponatremia, dehydrat Diagnoses: (1) Orthostatic hypotension Diagnosis: Principal (2) MAYELA (acute kidney injury) Diagnosis: Principal (3) Hyponatremia Diagnosis: Principal Chief Complaint: ' dizziness'. Travel History International Travel<30 Days: No Contact w/Intl Traveler <30 Da: No Traveled to Known Affected Are: No History of Present Illness patient is a 65 y/o male with history of CHF, CAD, diabetes who presented to ER with dizziness. he says that he was started on entersto about a week ago and since then he noticed that his blood pressure was dropping. this morning he felt so dizzy that he got concerned and decided to come to ER.he says that he checked his blood pressure earlier this morning and it was around 70/30's. he received IV fluid in ER after which his blood pressure improved to 90/50's. he says that he feels better now although still with some dizziness. Review of Systems Constitutional: COMPLAINS OF: Dizziness, DENIES: Fever, Weight loss, Chills, Night Sweats Eyes: DENIES: Blurred vision, Diplopia, Vision loss, Double Vision Ears, nose, mouth, throat: DENIES: Tinnitus, Vertigo, Throat pain, Epistaxis Respiratory: DENIES: Apneas, Cough, Snoring, Wheezing, Hemoptysis, Sputum production, Shortness of breath Cardiovascular: DENIES: Chest pain, Palpitations, Syncope, Dyspnea on Exertion , PND, Lower Extremity Edema, Orthopnea, Claudication Gastrointestinal: DENIES: Abdominal pain, Black stools, Bloody stools, Constipation, Diarrhea, Nausea, Vomiting, Difficulty Swallowing, Anorexia Genitourinary: DENIES: Urinary frequency, Urgency, Hematuria, Dysuria Musculoskeletal: DENIES: Joint pain, Muscle aches, Stiffness, Joint Swelling Integumentary: DENIES: Rash Neurologic: DENIES: Abnormal gait, Headache, Localized weakness, Paresthesias, Seizures, Speech Problems, Tremor, Poor Balance Psychiatric: DENIES: Anxiety, Confusion, Mood changes, Depression, Hallucinations, Agitation, Suicidal Ideation, Homicidal Ideation, Delusions Past Family Social History Past Medical History CAD CHF COPD Past Surgical History CABG stent placement Reported Medications Insulin Syringe/U-100/31G X 08/11" 1 ml 1 Mis Mis 1 Ea .ROUTE DIRECTED Clonazepam 0.5 Mg Tab 0.5 Mg PO TID Furosemide 20 Mg Tab 20 Mg PO DAILY PRN Only take if increased leg swelling or weight gain. Novolog Inj (Insulin Aspart) 1,000 Unit/10 Ml Vial 1-9 Units SQ ACHS sugars less than 70,(0)units sugars 150-199,(1) unit sugars 200-249,(3) units sugars 250-299,(5) units sugars 300-349,(7) units sugars greater than 349,(9) units Novolog Inj (Insulin Aspart) 1,000 Unit/10 Ml Vial 3 Units SQ TIDAC Take before each meal, be sure to eat within 5 minutes. Levemir Flextouch Pen Inj (Insulin Detemir) 300 unit/3 ML Pen 5 Units SQ HS Vitamin B-1 (Thiamine HCl) 100 Mg Tab 100 Mg PO DAILY 30 Days Reported Sotalol (Sotalol HCl) 120 Mg Tab 120 Mg PO BID Sertraline (Sertraline HCl) 50 Mg Tab 50 Mg PO DAILY Entresto (Sacubitril-Valsartan) 24-26 Mg Tab 1 Tab PO BID ZyrTEC Itchy Eye Opth Drops (Ketotifen Opth Drops) 0.025% Drops 1 Drop EACH EYE DAILY Atorvastatin (Atorvastatin Calcium) 40 Mg Tab 40 Mg PO DAILY D3 (Cholecalciferol) 1,000 Unit Tab 1,000 Units PO DAILY Flonase Nasal [place] (Fluticasone Nasal [place]) 50 Mcg/Act [place] 2 [place] EACH NARE DAILY Nitroglycerin SL (Nitroglycerin) 0.4 Mg Subl 0.4 Mg SL DIRECTED ONE TABLET UNDER THE TONGUE NEEDED FOR CHEST PAIN, MAY REPEAT EVERY FIVE MINUTES FOR A TOTAL OF 3 DOSES OR CALL 911 IF NO RELIEF Aspirin 81 Mg Tabdr 81 Mg PO DAILY Combivent Respimat Inh (Ipratropium-Albuterol Inh) 20-100 [facility]/Act Aero 2 Puff INH BID Allergies: Coded Allergies: No Known Allergies (Unverified , 07/31/16) Active Ordered Medications Current Medications Sodium Chloride 2 ml 2 ml UNSCH PRN IVF FLUSH AFTER USING IV ACCESS; Start 07/31 at 14:30 Sodium Chloride 500 ml @ 500 mls/hr BOLUS ONCE IV Last administered on 14:48; Start 07/31/16 at 14:30; Stop 07/31/16 at 15:29; Status DC Sodium Chloride (NS 500 ml Inj) 500 ml @ 500 mls/hr BOLUS ONCE IV Last administered on 07/31/16 15:42; Start 07/31/16 at 15:30; Stop 07/31/16 at 16:29 Family History not relevant to this presentation. Social History quit smoking few years ago. drinks occasionally. Physical Exam Vital Signs Vital Signs Date Time Temp Pulse Resp B/P Pulse Ox O2 Delivery O2 Flow Rate FiO2 07/31/16 15:56 89 16 94/59 97 07/31/16 15:45 83 18 82/53 97 Nasal Cannula 2 07/31/16 15:18 80 82/53 07/31/16 15:10 84 16 79/51 98 07/31/16 15:02 96 07/31/16 14:45 96 Nasal Cannula 2 07/31/16 14:22 90 22 104/69 97 Nasal Cannula 2 07/31/16 14:17 77/52 07/31/16 13:42 99/63 07/31/16 13:42 97.9 89 17 95/59 96 Physical Exam GENERAL: This is a well-nourished, well-developed patient, in no apparent distress. SKIN: No rashes, ecchymoses or lesions. Cool and dry. HEAD: Atraumatic. Normocephalic. No temporal or scalp tenderness. EYES: Pupils equal round and reactive. Extraocular motions intact. No scleral icterus. No injection or drainage. ENT: Nose without bleeding, purulent drainage or septal hematoma. Throat without erythema, tonsillar hypertrophy or exudate. Uvula midline. Airway patent. NECK: Trachea midline. No JVD or lymphadenopathy. Supple, nontender, no meningeal signs. CARDIOVASCULAR: Regular rate and rhythm without murmurs, gallops, or rubs. RESPIRATORY: Clear to auscultation. Breath sounds equal bilaterally. No wheezes , rales, or rhonchi. GASTROINTESTINAL: Abdomen soft, non-tender, nondistended. No hepato-splenomegaly , or palpable masses. No guarding. MUSCULOSKELETAL: Extremities without clubbing, cyanosis, or edema. No joint tenderness, effusion, or edema noted. No calf tenderness. Negative Homans sign bilaterally. NEUROLOGICAL: Awake and alert. Cranial nerves II through XII intact. Motor and sensory grossly within normal limits. Five out of 5 muscle strength in all muscle groups. Normal speech. Laboratory Laboratory Tests Test 07/31/16 14:40 White Blood Count 11.1 Red Blood Count 4.66 Hemoglobin 14.2 Hematocrit 43.6 Mean Corpuscular Volume 93.7 Mean Corpuscular Hemoglobin 30.4 Mean Corpuscular Hemoglobin 32.5 Concent Red Cell Distribution Width 15.7 Platelet Count 125 Mean Platelet Volume 9.6 Neutrophils (%) (Auto) 64.0 Lymphocytes (%) (Auto) 22.7 Monocytes (%) (Auto) 11.1 Eosinophils (%) (Auto) 1.6 Basophils (%) (Auto) 0.6 Neutrophils # (Auto) 7.1 Lymphocytes # (Auto) 2.5 Monocytes # (Auto) 1.2 Eosinophils # (Auto) 0.2 Basophils # (Auto) 0.1 CBC Comment DIFF FINAL Differential Comment Sodium Level 125 Potassium Level 4.1 Chloride Level 90 Carbon Dioxide Level 22.0 Anion Gap 13 Blood Urea Nitrogen 29 Creatinine 1.65 Estimat Glomerular Filtration 42 Rate Random Glucose 129 Calcium Level 8.3 Magnesium Level 1.7 Total Bilirubin 1.1 Aspartate Amino Transf 117 (AST/SGOT) Alanine Aminotransferase 77 (ALT/SGPT) Alkaline Phosphatase 99 Total Creatine Kinase 205 Creatine Kinase MB 3.9 Troponin I LESS THAN 0.02 B-Type Natriuretic Peptide 111 Total Protein 7.9 Albumin 3.2 Result Diagram: 07/31/16 1440 07/31/16 1440 Imaging Last Impressions Chest X-Ray 07/31/16 1426 Signed Impressions: Service Date/Time: Sunday, July 31, 2016 14:43 - CONCLUSION: No acute disease Shawn Hopper MD EKG; pacemaker rhythm Assessment and Plan Assessment and Plan A/P - orthostatic hypotension/ dehydration continue with cautious IV hydration and monitor the BP closely. -hyponatremia/ acute kidney injury due to dehydration IV hydration as noted above- will monitor the renal function and electrolytes closely; BMP in am. -CAD; continue aspirin/ statin and sotalol- hold Enteresto due to hypotension -diabetes mellitus; resume home meds- accu-check with SSI -COPD; with no exacerbation; continue home inhalers -DVT prophylaxis with SCD's -will consult PT Discussed Condition With ER physician and the patient. Zora Eden MD July 31, 2016 16:28
[2016-07-31] MEDS ORDERED: COMBIVENT RESPIMAT INH SCH (21:00)
[2016-07-31] MEDS: SOTALOL HCL 80 MG TAB PO SCH (21:43)
[2016-07-31] MEDS: OLOPATADINE HCL 0.1% OPHT SOLN 5 ML BTL EACH EYE SCH (21:43)
[2016-07-31] MEDS: INSULIN ASPART SUPPLEMENTAL SCALE SQ SCH (21:45)
[2016-08-01] VITALS (8 sets, daily range): BP systolic 90–136; BP diastolic 51–77; PULSE 53–91; RESP 17–20; TEMP 96.9–97.8; O2SAT 93–95
[2016-08-01 06:43] LABS: BICARBONATE 20.6 MEQ/L (21.0-32.0); POTASSIUM 3.8 MEQ/L (3.5-5.1)
[2016-08-01] MEDS: INSULIN ASPART SUPPLEMENTAL SCALE SQ SCH ×4 (07:19→22:34)
[2016-08-01] MEDS ORDERED: BUME1TAB25 PO (08:33)
--- NOTE | 2016-08-01 08:35 | HHI.PR ---
Subjective Remarks resting comfortably with no distress. dizziness is better. BP has improved. is hoping that he would go home later today. d/w the RN. Objective Vitals Vital Signs Date Time Temp Pulse Resp B/P Pulse Ox O2 Delivery O2 Flow Rate FiO2 08/01/16 04:00 97.8 77 19 114/65 95 08/01/16 00:00 97.7 76 20 109/73 93 07/31/16 20:00 96.5 66 18 94/56 96 07/31/16 17:17 71 98/57 07/31/16 15:56 89 16 94/59 97 07/31/16 15:45 83 18 82/53 97 Nasal Cannula 2 07/31/16 15:18 80 82/53 07/31/16 15:10 84 16 79/51 98 07/31/16 15:02 96 07/31/16 14:45 96 Nasal Cannula 2 07/31/16 14:22 90 22 104/69 97 Nasal Cannula 2 07/31/16 14:17 77/52 07/31/16 13:42 99/63 07/31/16 13:42 97.9 89 17 95/59 96 I/O 07/31/16 07/31/16 07/31/16 08/01/16 08/01/16 08/01/16 07:00 15:00 23:00 07:00 15:00 23:00 Intake Total 360 ml 240 ml Output Total 500 ml 900 ml Balance -140 ml -660 ml Intake Oral 360 ml 240 ml Output Urine Total 500 ml 900 ml # Bowel Movements 0 0 Result Diagram: 07/31/16 1440 08/01/16 0447 Imaging Last Impressions Chest X-Ray 07/31/16 1426 Signed Impressions: Service Date/Time: Sunday, July 31, 2016 14:43 - CONCLUSION: No acute disease Shawn Hopper MD Objective Remarks GENERAL: This is a well-nourished, well-developed patient, in no apparent distress. CARDIOVASCULAR: Regular rate and regular rhythm without murmurs, gallops, or rubs. RESPIRATORY: Clear to auscultation. Breath sounds equal bilaterally. No wheezes , rales, or rhonchi. GASTROINTESTINAL: Abdomen soft, non-tender, nondistended. Normal, active bowel sounds MUSCULOSKELETAL: Extremities without clubbing, cyanosis, or edema. NEURO: Alert & Oriented x4 to person, place, time, situation. Moves all ext x4 Procedures none Medications and IVs Current Medications Sodium Chloride 2 ml 2 ml UNSCH PRN IVF FLUSH AFTER USING IV ACCESS; Start 07/31 at 14:30 Sodium Chloride 500 ml @ 500 mls/hr BOLUS ONCE IV Last administered on 14:48; Start 07/31/16 at 14:30; Stop 07/31/16 at 15:29; Status DC Sodium Chloride (NS 500 ml Inj) 500 ml @ 500 mls/hr BOLUS ONCE IV Last administered on 07/31/16 15:42; Start 07/31/16 at 15:30; Stop 07/31/16 at 16:29; Status DC Dextrose (D50w (Vial) Inj) 25 ml UNSCH PRN IV PUSH HYPOGLYCEMIA-SEE COMMENTS; Start 07/31/16 at 16:15 Glucagon (Glucagon Inj) 1 mg UNSCH PRN OTHER HYPOGLYCEMIA-SEE COMMENTS; Start 07/31/16 at 16:15 Insulin Aspart (NovoLOG SUPPLEMENTAL SCALE) 1 ACHS SLIDING SCALE SQ Last administered on 08/01/16 07:19; Start 07/31/16 at 21:00 Aspirin (Ecotrin Ec) 81 mg DAILY PO ; Start 08/01/16 at 09:00 Atorvastatin Calcium (Lipitor) 40 mg DAILY PO ; Start 08/01/16 at 09:00 Sertraline HCl (Zoloft) 50 mg DAILY PO ; Start 08/01/16 at 09:00 Sotalol HCl (Betapace) 80 mg BID PO Last administered on 07/31/16 21:43; Start 07/31/16 at 21:00 Patient Own Medication PT OWN MED: TONE... DAILY SQ ; Start 08/01/16 at 09:00; Status Future Hold Patient Own Medication PT OWN MED: COMBIV... BID INH ; Start 07/31/16 at 21:00; Status Hold Olopatadine HCl (Patanol 0.1% Opth) 1 drop BID EACH EYE Last administered on 21:43; Start 07/31/16 at 21:00 A/P Assessment and Plan - orthostatic hypotension/ dehydration- resolved received IV hydration- continue to monitor BP -hyponatremia/ acute kidney injury due to dehydration-improved IV hydration as noted above- -CAD; continue aspirin/ statin and sotalol- hold Enteresto due to hypotension -chronic systolic CHF- compensated-decrease the dose of bumex- enteresto on hold due to hypotension/ kidney injury will have a f/u with ( has an appointment in a few days). -diabetes mellitus; resumed home meds- accu-check with SSI -COPD; with no exacerbation; continue home inhalers -DVT prophylaxis with SCD's - consulted PT Discharge Planning possible dc home later this afternoon if remains stable with reasonable BP readings. see med list. f/u with pcp and cardiology. d/w the patient and RN. Zora Eden MD August 01, 2016 08:35
--- NOTE | 2016-08-01 08:37 | HHI.DS ---
Discharge Summary Admission Date July 31, 2016 at 17:44 Discharge Date: August 01, 2016 Admitting Diagnosis orthostatic hypotension, acute kidney injury, hyponatremia, dehydrat (1) Orthostatic hypotension ICD Code: I95.1 Diagnosis: Principal (2) MAYELA (acute kidney injury) ICD Code: N17.9 Diagnosis: Principal (3) Hyponatremia ICD Code: E87.1 Diagnosis: Principal Procedures none Brief History - From Admission patient is a 65 y/o male with history of CHF, CAD, diabetes who presented to ER with dizziness. he says that he was started on entersto about a week ago and since then he noticed that his blood pressure was dropping. this morning he felt so dizzy that he got concerned and decided to come to ER.he says that he checked his blood pressure earlier this morning and it was around 70/30's. he received IV fluid in ER after which his blood pressure improved to 90/50's. he says that he feels better now although still with some dizziness. CBC/BMP: 07/31/16 1440 08/01/16 0447 Significant Findings Laboratory Tests Test 07/31/16 08/01/16 14:40 04:47 White Blood Count 11.1 TH/MM3 (4.0-11.0) Platelet Count 125 TH/MM3 (150-450) Monocytes (%) (Auto) 11.1 % (0.0-8.0) Monocytes # (Auto) 1.2 TH/MM3 (0-0.9) Sodium Level 125 MEQ/L 131 MEQ/L (136-145) (136-145) Chloride Level 90 MEQ/L 97 MEQ/L (98-107) (98-107) Blood Urea Nitrogen 29 MG/DL (7-18) 27 MG/DL (7-18) Creatinine 1.65 MG/DL (0.60-1.30) Estimat Glomerular Filtration 42 ML/MIN (>89) 66 ML/MIN (>89) Rate Random Glucose 129 MG/DL 112 MG/DL (74-106) (74-106) Calcium Level 8.3 MG/DL 7.6 MG/DL (8.5-10.1) (8.5-10.1) Total Bilirubin 1.1 MG/DL (0.2-1.0) Aspartate Amino Transf 117 U/L (15-37) (AST/SGOT) Creatine Kinase MB 3.9 NG/ML (0.5-3.6) Troponin I LESS THAN 0.02 NG/ML (0.02-0.05) B-Type Natriuretic Peptide 111 PG/ML (0-100) Albumin 3.2 GM/DL (3.4-5.0) Carbon Dioxide Level 20.6 MEQ/L (21.0-32.0) Imaging Last Impressions Chest X-Ray 07/31/16 1426 Signed Impressions: Service Date/Time: Sunday, July 31, 2016 14:43 - CONCLUSION: No acute disease Shawn Hopper MD PE at Discharge GENERAL: This is a well-nourished, well-developed patient, in no apparent distress. CARDIOVASCULAR: Regular rate and regular rhythm without murmurs, gallops, or rubs. RESPIRATORY: Clear to auscultation. Breath sounds equal bilaterally. No wheezes , rales, or rhonchi. GASTROINTESTINAL: Abdomen soft, non-tender, nondistended. Normal, active bowel sounds MUSCULOSKELETAL: Extremities without clubbing, cyanosis, or edema. NEURO: Alert & Oriented x4 to person, place, time, situation. Moves all ext x4 Hospital Course - orthostatic hypotension/ dehydration continue with cautious IV hydration and monitor the BP closely. -hyponatremia/ acute kidney injury due to dehydration IV hydration as noted above- will monitor the renal function and electrolytes closely; BMP in am. -CAD; continue aspirin/ statin and sotalol- hold Enteresto due to hypotension -diabetes mellitus; resume home meds- accu-check with SSI -COPD; with no exacerbation; continue home inhalers -DVT prophylaxis with SCD's -will consult PT Pt Condition on Discharge: Good Discharge Disposition: Discharge Home Discharge Time: <= 30 minutes Discharge Instructions DIET: Follow Instructions for: Heart Healthy Diet, Diabetic Diet Activities you can perform: Regular-No Restrictions Follow up Referrals: Cardiology PCP Follow-up New Medications: Bumetanide (Bumex) 0.5 Mg Tab 0.5 MG PO DAILY diuretic Days 30 Ref 0 TAB Continued Medications: Aspirin (Aspirin) 81 Mg Tabdr 81 MG PO DAILY TAB Atorvastatin (Atorvastatin) 40 Mg Tab 40 MG PO DAILY Cholesterol Management #30 Ref 0 TAB Cholecalciferol (D3) 1,000 Unit Tab 1000 UNITS PO DAILY Dulaglutide Inj (Trulicity Inj) 0.75 Mg/0.5 Ml Pen 0.75 MG SQ Q7D ON TUESDAYS Blood Sugar Management #4 Ref 0 PEN Fluticasone Nasal [place] (Flonase Nasal [place]) 50 Mcg/Act [place] 2 SPRAY EACH NARE DAILY Allergies BOTTLE Insulin Degludec Inj (Tresiba Flextouch Pen Inj) 300 unit/3 ML Pen 70 UNITS SQ DAILY Blood Sugar Management #15 Ref 0 ML Ipratropium-Albuterol Inh (Combivent Respimat Inh) 20-100 Long Term/Act Aero 2 PUFF INH BID Asthma Management INHALER Ketotifen Opth Drops (ZyrTEC Itchy Eye Opth Drops) 0.025% Drops 1 DROP EACH EYE DAILY ALLERGIES Ref 0 BOTTLE Nitroglycerin SL (Nitroglycerin SL) 0.4 Mg Subl 0.4 MG SL DIRECTED ONE TABLET UNDER THE TONGUE NEEDED FOR CHEST PAIN, MAY REPEAT EVERY FIVE MINUTES FOR A TOTAL OF 3 DOSES OR CALL 911 IF NO RELIEF CHEST PAIN TAB.SL Sertraline (Sertraline) 50 Mg Tab 50 MG PO DAILY #30 Ref 0 TAB Sotalol (Sotalol) 80 Mg Tab 80 MG PO BID Regulate Heart Beat #60 Ref 0 TAB Thiamine (Vitamin B-1) 100 Mg Tab 100 MG PO DAILY Vitamin Days 30 TAB Discontinued Medications: Bumetanide (Bumex) 1 Mg Tab 1 MG PO DAILY Ref 0 TAB Sacubitril-Valsartan (Entresto) 97-103 Mg Tab 1 TAB PO BID PRN SBP>160, DBP>90 #30 Ref 0 TAB Zora Eden MD August 01, 2016 08:37
--- NOTE | 2016-08-01 08:37 | HHI.DCPOC ---
Discharge Care Plan Diagnosis: (1) MAYELA (acute kidney injury) (2) Hyponatremia (3) Orthostatic hypotension Additional Problems dizziness. Goals to Promote Your Health * To prevent worsening of your condition and complications * To maintain your health at the optimal level Directions to Meet Your Goals Take your medications as prescribed Follow your dietary instruction Follow activity as directed Keep your appointments as scheduled Take your immunizations and boosters as scheduled If your symptoms worsen call your PCP, if no PCP go to Urgent Care Center or Emergency Room Smoking is Dangerous to Your Health. Avoid second hand smoke Call the 24-hour hour crisis hotline for domestic abuse at Zora Eden MD August 01, 2016 08:36
[2016-08-01] MEDS ORDERED: TRESIBA SQ SCH (09:00)
[2016-08-01] MEDS ORDERED: [UNRECOGNIZED DRUG - OTHER] SQ SCH (09:00)
--- NOTE | 2016-08-01 10:25 | EKG ---
Date Performed: 07/31/2016 Time Performed: 14:25:40 PTAGE: 65 years EKG: ELECTRONIC VENTRICULAR PACEMAKER ABNORMAL RHYTHM ECG NO PREVIOUS TRACING DOCTOR: Matt Davenport Interpretating Date/Time 08/01/2016 10:23:27
[2016-08-01] MEDS: SERTRALINE HCL 50 MG TAB PO SCH (10:42)
[2016-08-01] MEDS: SOTALOL HCL 80 MG TAB PO SCH ×2 (10:42→22:34)
[2016-08-01] MEDS: ASPIRIN EC 81 MG TABEC PO SCH (10:42)
[2016-08-01] MEDS: ATORVASTATIN 40 MG TAB PO SCH (10:43)
[2016-08-01] MEDS ORDERED: SODIUM CHLORID 0.9% 500 ML INJ 500 ML IV ONE (14:00)
[2016-08-01] MEDS ORDERED: ONDANSETRON HCL 4 MG/2 ML VIAL IV PUSH PRN (16:00)
[2016-08-01] MEDS: OLOPATADINE HCL 0.1% OPHT SOLN 5 ML BTL EACH EYE SCH ×2 (16:10→22:34)
[2016-08-01 17:07] LABS: C. DIFF EPI 027 PRESUMPTIVE NEGATIVE (NEGATIVE); C. DIFF TOXIN PCR NEGATIVE (NEGATIVE)
[2016-08-02] VITALS: BP_SYST 107; BP_SYST 109; BP_SYST 114; BP_DIAS 64; BP_DIAS 67; BP_DIAS 70; PULSE 74; RESP 17; TEMP 97.4; O2SAT 95
[2016-08-02 04:00] VITALS: BP 112/63; PULSE 70; RESP 17; TEMP 98; O2SAT 95
[2016-08-02] MEDS: INSULIN ASPART SUPPLEMENTAL SCALE SQ SCH (05:59)
--- NOTE | 2016-08-02 07:57 | HHI.PR ---
Subjective Remarks feels better today. dizziness has improved- BP stable. had some diarrhea and nausea which has resolved. wants ti go home today. Objective Vitals Vital Signs Date Time Temp Pulse Resp B/P Pulse Ox O2 Delivery O2 Flow Rate FiO2 08/02/16 04:00 98.0 70 17 112/63 95 08/02/16 00:00 97.4 74 17 107/64 95 109/67 114/70 08/01/16 20:00 73 08/01/16 20:00 96.9 53 17 100/61 95 08/01/16 16:00 97.4 86 18 94/53 93 08/01/16 12:00 121/55 08/01/16 12:00 97.5 91 17 102/58 94 08/01/16 10:30 127/73 08/01/16 10:30 136/77 08/01/16 10:30 105/73 08/01/16 09:52 112/68 08/01/16 09:52 90/51 08/01/16 08:00 97.5 87 17 122/71 95 08/01/16 08:00 97.6 80 18 131/73 95 I/O 08/01/16 08/01/16 08/01/16 08/02/16 08/02/16 08/02/16 07:00 15:00 23:00 07:00 15:00 23:00 Intake Total 240 ml 220 ml 240 ml 740 ml Output Total 900 ml 225 ml 500 ml 500 ml Balance -660 ml -5 ml -260 ml 240 ml Intake Oral 240 ml 220 ml 240 ml 240 ml IV Total 500 ml Output Urine Total 900 ml 225 ml 500 ml 500 ml # Voids 6 # Bowel Movements 0 3 Result Diagram: 07/31/16 1440 08/01/16 0447 Imaging Last Impressions Chest X-Ray 07/31/16 1426 Signed Impressions: Service Date/Time: Sunday, July 31, 2016 14:43 - CONCLUSION: No acute disease Shawn Hopper MD Objective Remarks GENERAL: This is a well-nourished, well-developed patient, in no apparent distress. CARDIOVASCULAR: Regular rate and regular rhythm without murmurs, gallops, or rubs. RESPIRATORY: Clear to auscultation. Breath sounds equal bilaterally. No wheezes , rales, or rhonchi. GASTROINTESTINAL: Abdomen soft, non-tender, nondistended. Normal, active bowel sounds MUSCULOSKELETAL: Extremities without clubbing, cyanosis, or edema. NEURO: Alert & Oriented x4 to person, place, time, situation. Moves all ext x4 Procedures none Medications and IVs Current Medications Sodium Chloride 2 ml 2 ml UNSCH PRN IVF FLUSH AFTER USING IV ACCESS; Start 07/31 at 14:30 Sodium Chloride 500 ml @ 500 mls/hr BOLUS ONCE IV Last administered on 14:48; Start 07/31/16 at 14:30; Stop 07/31/16 at 15:29; Status DC Sodium Chloride (NS 500 ml Inj) 500 ml @ 500 mls/hr BOLUS ONCE IV Last administered on 07/31/16 15:42; Start 07/31/16 at 15:30; Stop 07/31/16 at 16:29; Status DC Dextrose (D50w (Vial) Inj) 25 ml UNSCH PRN IV PUSH HYPOGLYCEMIA-SEE COMMENTS; Start 07/31/16 at 16:15 Glucagon (Glucagon Inj) 1 mg UNSCH PRN OTHER HYPOGLYCEMIA-SEE COMMENTS; Start 07/31/16 at 16:15 Insulin Aspart (NovoLOG SUPPLEMENTAL SCALE) 1 ACHS SLIDING SCALE SQ Last administered on 08/01/16 22:34; Start 07/31/16 at 21:00 Aspirin (Ecotrin Ec) 81 mg DAILY PO Last administered on 08/01/16 10:42; Start 08/01/16 at 09:00 Atorvastatin Calcium (Lipitor) 40 mg DAILY PO Last administered on 08/01/16 10: 43; Start 08/01/16 at 09:00 Sertraline HCl (Zoloft) 50 mg DAILY PO Last administered on 08/01/16 10:42; Start 08/01/16 at 09:00 Sotalol HCl (Betapace) 80 mg BID PO Last administered on 08/01/16 22:34; Start 07/31/16 at 21:00 Patient Own Medication PT OWN MED: TONE... DAILY SQ ; Start 08/01/16 at 09:00; Status Hold Patient Own Medication PT OWN MED: COMBIV... BID INH ; Start 07/31/16 at 21:00; Status Hold Olopatadine HCl 1 drop 1 drop BID EACH EYE Last administered on 08/01/16 22:34 ; Start 07/31/16 at 21:00 Sodium Chloride (NS 500 ml Inj) 500 ml @ 50 mls/hr Q10H ONCE IV Last administered on 08/01/16 14:00; Start 08/01/16 at 14:00; Stop 08/01/16 at 23:59; Status DC Ondansetron HCl (Zofran Inj) 4 mg Q8H PRN IV PUSH NAUSEA Last administered on 16:06; Start 08/01/16 at 16:00 A/P Assessment and Plan - orthostatic hypotension/ dehydration- resolved received IV hydration- continue to monitor BP -hyponatremia/ acute kidney injury due to dehydration-improved IV hydration as noted above- -CAD; continue aspirin/ statin and sotalol- hold Enteresto due to hypotension -chronic systolic CHF- compensated-decrease the dose of bumex upon discharge- enteresto on hold due to hypotension/ kidney injury will have a f/u with ( has an appointment this week). -diabetes mellitus; resumed home meds- accu-check with SSI -COPD; with no exacerbation; continue home inhalers -DVT prophylaxis with SCD's - consulted PT Discharge Planning dc home today. see med list. f/u with pcp and cardiology. d/w the patient. Zora Eden MD August 02, 2016 07:57
[2016-08-02 08:00] VITALS: BP_SYST 108; BP_SYST 109; BP_SYST 114; BP_DIAS 63; BP_DIAS 69; BP_DIAS 73; PULSE 80; PULSE 82; RESP 18; TEMP 98.3; TEMP 98.5; TEMP 98.7; O2SAT 93; O2SAT 94; O2SAT 95
[2016-08-02] MEDS: ASPIRIN EC 81 MG TABEC PO SCH (08:26)
[2016-08-02] MEDS: ATORVASTATIN 40 MG TAB PO SCH (08:27)
[2016-08-02] MEDS: SOTALOL HCL 80 MG TAB PO SCH (08:27)
[2016-08-02] MEDS: SERTRALINE HCL 50 MG TAB PO SCH (08:28)
[2016-08-02] MEDS: OLOPATADINE HCL 0.1% OPHT SOLN 5 ML BTL EACH EYE SCH (08:28)
== END 2016-08-02 10:06 | disposition home or self-care (01) | DRG 312 ==
LOC: NEPE 13:38 → NEDA 16:07 → OBSVTOIN 17:44 → N07B 18:40
PROVIDERS: ADMIT Internal Medicine; ATTEND Internal Medicine
DX: I95.1 Orthostatic hypotension (principal); N17.9 Acute kidney failure, unspecified; I50.22 Chronic systolic (congestive) heart failure; E87.1 Hypo-osmolality and hyponatremia; I25.810 Atherosclerosis of coronary artery bypass graft(s) without angina pectoris; E86.0 Dehydration; E11.9 Type 2 diabetes mellitus without complications; Z95.1 Presence of aortocoronary bypass graft; J44.9 Chronic obstructive pulmonary disease, unspecified
CPT/HCPCS: 71010; 80048; 80053; 82550; 82552; 82948; 83735; 83880; 84484; 85025; 87493; 93005; 96360; J1815; J2405; J7040

== ENCOUNTER 2016-08-20 14:29 | Observation (INO) | payer MEDICARE, OTHER ==
[~2016-08-20] VITALS: Ht 167.6 cm; Wt 95.0 kg
[2016-08-20] VITALS (7 sets, daily range): BP systolic 126–150; BP diastolic 73–80; PULSE 53–90; RESP 16–20; TEMP 98.3–98.7; O2SAT 94–97
[~2016-08-20 14:29] MED LIST changes: +BUME1TAB25 PO; -CLON0.5T PO; +DULA10IN SQ; -FURO20TA PO; +INSU1INJ14 SQ; -INSU1INJ5 SQ; -INSU1MIS15; -NOVOLOGP2 SQ; -SACU1TAB PO; -SOTA120T PO; +SOTA80TA PO
[2016-08-20] MEDS ORDERED: SODIUM CHLORIDE 0.9% FLUSH 10 ML FLUSH IVF PRN (15:00)
--- NOTE | 2016-08-20 15:05 | PD ---
HPI Chief Complaint: Chest Pain Time Seen by Provider: 14:42 Travel History International Travel<30 days: No Contact w/Intl Traveler<30days: No Traveled to known affect area: No History of Present Illness HPI This patient complains of central chest tightness. Duration 2 days. Severity is moderate. It started while he was watching TV. It is eased off with no specific alleviating factors. He has history of bypass grafting and 1 cardiac stent. He took an aspirin this morning as he does daily. He felt a bit lightheaded but that has eased as well. Not having palpitations or rapid heart rate as far as he can tell. Had an ablation attempt 2 months ago PFSH Past Medical History Hx Anticoagulant Therapy: Yes (ASA ) Arthritis: No Asthma: Yes Atrial Fibrillation: Yes Autoimmune Disease: No Blood Disorders: No Anxiety: Yes Depression: Yes Heart Rhythm Problems: Yes Cancer: No Cardiac Catheterization: Yes Cardiovascular Problems: Yes (CHF, HTN ) High Cholesterol: Yes Chemotherapy: No Chest Pain: Yes Congestive Heart Failure: Yes Cirrhosis: Yes COPD: Yes Cerebrovascular Accident: No Diabetes: Yes Patient Takes Glucophage: Yes Diminished Hearing: No Endocrine: Yes (Diabetes Mellitus) Gastrointestinal Disorders: Yes (ASCITES) GERD: No Glaucoma: No Genitourinary: Yes (mary) Headaches: Yes Hepatitis: No Hiatal Hernia: No Heparin Induced Thrombocytopen: No Hypertension: Yes Immune Disorder: No Implanted Vascular Access Dvce: Yes Kidney Stones: No Musculoskeletal: No Neurologic: Yes (tremors) Psychiatric: No Reproductive: No Respiratory: Yes (COPD ) Integumentary: No Immunizations Current: No Migraines: No Pneumonia: Yes Radiation Therapy: No Renal Failure: No Seizures: No Sickle Cell Disease: No Sleep Apnea: Yes Thyroid Disease: No Ulcer: No Past Surgical History Abdominal Surgery: Yes (hernia repair) AICD: Yes ([place]/PACER) Arteriovenous Shunt: No Body Medical Devices: STENTS TAYA LEGS & HEART, DEFIBRILLATOR Coronary Artery Bypass Graft: Yes (TRIPLE) Coronary Stent: Yes (X3) Ear Surgery: No Endocrine Surgery: No Eye Surgery: No Genitourinary Surgery: No Gynecologic Surgery: No Insulin Pump: No Joint Replacement: No Neurologic Surgery: No Oral Surgery: No Pacemaker: Yes (AICD) Other Surgery: Yes (CABG, TAYA L.E. STENTS, AICD) Social History Alcohol Use: No (EVERYDAY-FORMER) Tobacco Use: No (QUIT A YEAR AGO ) Substance Use: No Allergies-Medications (Allergen,Severity, Reaction): Coded Allergies: No Known Allergies (Unverified , 08/20/16) Reported Meds & Prescriptions Reported Meds & Active Scripts Active Reported Bumetanide 0.5 Mg Tab 0.5 Mg PO DAILY Aspirin 81 Mg Chew 81 Mg CHEW DAILY B-1 (Thiamine HCl) 250 Mg Tab 250 Mg PO DAILY Tresiba Flextouch Pen Inj (Insulin Degludec Inj) 300 unit/3 ML Pen 70 Units SQ DAILY Trulicity Inj (Dulaglutide Inj) 0.75 Mg/0.5 Ml Pen 0.75 Mg SQ Q7D ON TUESDAYS Sotalol (Sotalol HCl) 80 Mg Tab 80 Mg PO BID Sertraline (Sertraline HCl) 50 Mg Tab 50 Mg PO DAILY ZyrTEC Itchy Eye Opth Drops (Ketotifen Opth Drops) 0.025% Drops 1 Drop EACH EYE DAILY Atorvastatin (Atorvastatin Calcium) 40 Mg Tab 40 Mg PO DAILY D3 (Cholecalciferol) 1,000 Unit Tab 1,000 Units PO DAILY Flonase Nasal [place] (Fluticasone Nasal [place]) 50 Mcg/Act [place] 2 [place] EACH NARE DAILY Nitroglycerin SL (Nitroglycerin) 0.4 Mg Subl 0.4 Mg SL DIRECTED ONE TABLET UNDER THE TONGUE NEEDED FOR CHEST PAIN, MAY REPEAT EVERY FIVE MINUTES FOR A TOTAL OF 3 DOSES OR CALL 911 IF NO RELIEF Combivent Respimat Inh (Ipratropium-Albuterol Inh) 20-100 Usp/Act [place] 2 Puff INH BID Review of Systems General / Constitutional: No: Fever Eyes: No: Visual changes HENT: Positive: Lightheadedness, No: Headaches Cardiovascular: Positive: Chest Pain or Discomfort Respiratory: No: Shortness of Breath Gastrointestinal: No: Abdominal Pain Genitourinary: No: Dysuria Musculoskeletal: No: Pain Skin: No Rash Neurologic: No: Weakness Psychiatric: No: Depression Endocrine: No: Polydipsia Hematologic/Lymphatic: No: Easy Bruising Physical Exam Narrative GENERAL: Well-nourished, well-developed patient in no apparent distress. SKIN: Focused skin assessment reveals no rash and nodules. Skin is Warm and dry. HEAD: Atraumatic. Normocephalic. EYES: Pupils equal and round. No scleral icterus. No injection or drainage. ENT: No nasal bleeding or discharge. Mucous membranes pink and moist. NECK: Trachea midline. No JVD. CARDIOVASCULAR: Regular rate and rhythm. No murmur appreciated. RESPIRATORY: No accessory muscle use. Clear to auscultation. Breath sounds equal bilaterally. GASTROINTESTINAL: Abdomen soft, non-tender, nondistended. Hepatic and splenic margins not palpable. MUSCULOSKELETAL: No obvious deformities. No clubbing. No cyanosis. No edema. NEUROLOGICAL: Awake and alert. No obvious cranial nerve deficits. Motor grossly within normal limits. Normal speech. PSYCHIATRIC: Appropriate mood and affect; insight and judgment normal. Data Data Last Documented VS Vital Signs Date Time Temp Pulse Resp B/P Pulse Ox O2 Delivery O2 Flow Rate FiO2 08/20/16 15:46 90 18 145/80 97 08/20/16 15:26 Nasal Cannula 2 08/20/16 14:31 98.7 Orders Electrocardiogram (08/20/16 14:54) Basic Metabolic Panel (Bmp) (08/20/16 14:54) Ckmb (Isoenzyme) Profile (08/20/16 14:54) Complete Blood Count With Diff (08/20/16 14:54) Prothrombin Time / Inr (Pt) (08/20/16 14:54) Act Partial Throm Time (Ptt) (08/20/16 14:54) Troponin I (08/20/16 14:54) Chest, Single Ap (08/20/16 14:54) Ecg Monitoring (08/20/16 14:54) Iv Access Insert/Monitor (08/20/16 14:54) Oximetry (08/20/16 14:54) Sodium Chloride 0.9% Flush (Ns Flush) (08/20/16 15:00) CKMB (08/20/16 15:00) CKMB% (08/20/16 15:00) Aspirin Chew (Aspirin Chew) (08/21/16 09:00) Atorvastatin (Lipitor) (08/21/16 09:00) Bumetanide (Bumetanide) (08/21/16 09:00) Cholecalciferol (Vitamin D3) (08/21/16 09:00) Sertraline (Zoloft) (08/21/16 09:00) Sotalol (Betapace) (08/20/16 21:00) Patient Own Medication (08/20/16 21:00) Place In Observation (08/20/16 ) Code Status (08/20/16 16:42) Vital Signs (Adult) Q4H (08/20/16 16:42) Activity Oob Ad Enma (08/20/16 16:42) Bedside Glucose BARRERA.AC&HS (08/20/16 16:42) Boiler Tester / Telemetry .CONTINUOUS (08/20/16 16:42) Intake + Output BARRERA.QSHIFT (08/20/16 16:42) Notify Dr: Other (08/20/16 16:42) Diet Heart Healthy (08/20/16 Dinner) Sodium Chlor 0.9% 1000 Ml Inj (Ns 1000 M (08/20/16 16:42) Sodium Chloride 0.9% Flush (Ns Flush) (08/20/16 16:45) Sodium Chloride 0.9% Flush (Ns Flush) (08/20/16 21:00) Acetaminophen (Tylenol) (08/20/16 16:45) Ondansetron Inj (Zofran Inj) (08/20/16 16:45) Basic Metabolic Panel (Bmp) (08/21/16 06:00) Complete Blood Count With Diff (08/21/16 06:00) Creatine Kinase (Cpk) (08/20/16 16:42) Creatine Kinase (Cpk) (08/20/16 22:42) Troponin I (08/20/16 16:42) Troponin I (08/20/16 22:42) Prothrombin Time / Inr (Pt) (08/21/16 06:00) Hepatic Functional Panel (08/21/16 06:00) Resp Oxygen Kahlil C Titrat 1-4 L (08/20/16 ) Heparin Inj (Heparin Inj) (08/20/16 18:00) Naloxone Inj (Narcan Inj) (08/20/16 16:45) Docusate Sodium-Senna (Caty-Colace) (08/20/16 21:00) Magnesium Hydroxide Liq (Milk Of Magnesi (08/20/16 16:45) Sennosides (Senokot) (08/20/16 16:45) Bisacodyl Supp (Dulcolax Supp) (08/20/16 16:45) Lactulose Liq (Lactulose Liq) (08/20/16 16:45) Insulin Human Reg Supp Scale (Novolin R (08/20/16 21:00) Consult Cardiology (08/20/16 ) Thiamine (Vit B1) (Vitamin B1) (08/20/16 18:00) Olopatadine 0.1% Opth (Patanol 0.1% Opth (08/20/16 17:00) Admit Order (Ed Use Only) (08/20/16 17:05) Labs Laboratory Tests Test 08/20/16 15:00 White Blood Count 7.5 TH/MM3 Red Blood Count 4.29 MIL/MM3 Hemoglobin 13.8 GM/DL Hematocrit 40.1 % Mean Corpuscular Volume 93.5 FL Mean Corpuscular Hemoglobin 32.1 PG Mean Corpuscular Hemoglobin 34.4 % Concent Red Cell Distribution Width 15.8 % Platelet Count 108 TH/MM3 Mean Platelet Volume 9.2 FL Neutrophils (%) (Auto) 77.3 % Lymphocytes (%) (Auto) 11.6 % Monocytes (%) (Auto) 9.2 % Eosinophils (%) (Auto) 1.5 % Basophils (%) (Auto) 0.4 % Neutrophils # (Auto) 5.8 TH/MM3 Lymphocytes # (Auto) 0.9 TH/MM3 Monocytes # (Auto) 0.7 TH/MM3 Eosinophils # (Auto) 0.1 TH/MM3 Basophils # (Auto) 0.0 TH/MM3 CBC Comment DIFF FINAL Differential Comment Prothrombin Time 12.4 SEC Prothromb Time International 1.1 RATIO Ratio Activated Partial 28.0 SEC Thromboplast Time Sodium Level 136 MEQ/L Potassium Level 3.8 MEQ/L Chloride Level 98 MEQ/L Carbon Dioxide Level 26.5 MEQ/L Anion Gap 12 MEQ/L Blood Urea Nitrogen 6 MG/DL Creatinine 0.79 MG/DL Estimat Glomerular Filtration 99 ML/MIN Rate Random Glucose 199 MG/DL Calcium Level 8.3 MG/DL Total Creatine Kinase 112 U/L Creatine Kinase MB 2.3 NG/ML Troponin I 0.03 NG/ML MDM Medical Decision Making Medical Screen Exam Complete: Yes Emergency Medical Condition: Yes Medical Record Reviewed: Yes Differential Diagnosis Differential diagnosis includes LA, angina, pericarditis, pleurisy, GERD, anxiety. Narrative Course I have reviewed the patient's electronic medical record. Reviewed his May 2016 ablation procedure note IV placed I reviewed the EKG shows paced rhythm, no ST elevation I reviewed the chest x-ray which is normal Extended cardiac monitoring shows paced rhythm CBC is normal Metabolic profile is normal CK is normal Troponin is normal Coagulation studies are normal He had an aspirin prior to arrival Patient is a sinus rhythm with significant ectopy in the form of a PVC every fifth or sixth beat. He is on sotalol I reviewed the case with community liaison coverage who is Dr. Layne I reviewed with hospitalist who will observe on telemetry Diagnosis Primary Impression: Chest pain Qualified Code: R07.9 - Chest pain, unspecified type Additional Impressions: CAD (coronary artery disease) Qualified Code: I25.10 - Coronary artery disease due to calcified coronary lesion Frequent PVCs Admitting Information Admitting Physician Requests: Observation Anam Pierce MD August 20, 2016 15:05
[2016-08-20 15:14] LABS: AUTOMATED NEUTROPHIL # 5.8 TH/MM3 (1.8-7.7); BASOPHIL % 0.4 % (0.0-2.0); EOSINOPHIL # 0.1 TH/MM3 (0-0.4); EOSINOPHIL % 1.5 % (0.0-4.0); HEMATOCRIT 40.1 % (39.0-51.0); HEMO FLAGS DIFF FINAL; LYMPH % 11.6 % (9.0-44.0); LYMPHOCYTE # 0.9 TH/MM3 (1.0-4.8); MEAN CELL VOLUME 93.5 FL (80.0-100.0); MEAN CORPUSCULAR HEMOGLOBIN 32.1 PG (27.0-34.0); MEAN CORPUSCULAR HGB CONC 34.4 % (32.0-36.0); MONO % 9.2 % (0.0-8.0); NEUT % 77.3 % (16.0-70.0); PLATELET COUNT 108 TH/MM3 (150-450); RED BLOOD COUNT 4.29 MIL/MM3 (4.50-5.90); RED CELL DISTRIBUTION WIDTH 15.8 % (11.6-17.2); WHITE BLOOD COUNT 7.5 TH/MM3 (4.0-11.0)
[2016-08-20 15:34] LABS: ANION GAP 12 MEQ/L (5-15); BICARBONATE 26.5 MEQ/L (21.0-32.0); BLOOD UREA NITROGEN 6 MG/DL (7-18); CHLORIDE 98 MEQ/L (98-107); GLOMERULAR FILTRATION RATE 99 ML/MIN (>89); POTASSIUM 3.8 MEQ/L (3.5-5.1); SODIUM (NA) 136 MEQ/L (136-145)
[2016-08-20 15:36] LABS: CREATINE KINASE 112 U/L (39-308); INTERNATIONAL NORMALIZED RATIO 1.1 RATIO; PROTHROMBIN TIME - PATIENT 12.4 SEC (9.8-11.6)
[2016-08-20 15:49] LABS: CKMB 2.3 NG/ML (0.5-3.6)
--- NOTE | 2016-08-20 16:14 | RADRPT ---
EXAM DATE/TIME: 08/20/2016 16:05 [place] COMPARISON: CHEST SINGLE AP, July 31, 2016, 14:43. INDICATIONS : Chest pain. MEDICAL HISTORY : Myocardial infarction. Chronic obstructive pulmonary disease. Congestive heart failure. SURGICAL HISTORY : CABG. Pacemaker. Coronary artery stent. ENCOUNTER: Initial ACUITY: 1 day PAIN SCORE: 3/10 LOCATION: middle chest. FINDINGS: Pacemaker device is noted with control pack over the left chest. Lungs are focally clear. No pleural effusion is evident. Cardiac contours are stable and satisfactory. Sternotomy wires are present. CONCLUSION: No acute disease Shawn Hopper MD on August 20, 2016 at 16:12 Board Certified Radiologist. This report was verified electronically.
[2016-08-20] MEDS ORDERED: BUME0.5T PO (16:26)
[2016-08-20] MEDS ORDERED: ASPI81CH CHEW (16:26)
[2016-08-20] MEDS ORDERED: B-1250TA PO (16:26)
[2016-08-20] MEDS ORDERED: SODIUM CHLOR 0.9% 1000 ML INJ 1,000 ML IV SCH (16:42)
[2016-08-20] MEDS ORDERED: SENNOSIDES 8.6 MG TAB PO PRN (16:45)
[2016-08-20] MEDS ORDERED: BISACODYL 10 MG SUPP RECTAL PRN (16:45)
[2016-08-20] MEDS ORDERED: NALOXONE HCL 0.4 MG/ML AMP IV PRN (16:45)
[2016-08-20] MEDS ORDERED: SODIUM CHLORIDE 0.9% FLUSH 10 ML FLUSH IV FLUSH PRN (16:45)
[2016-08-20] MEDS ORDERED: LACTULOSE SYRUP 20 GM/30 ML CUP PO PRN (16:45)
[2016-08-20] MEDS ORDERED: MAGNESIUM HYDROXIDE SUSP 30 ML CUP PO PRN (16:45)
[2016-08-20] MEDS ORDERED: ACETAMINOPHEN 325 MG TAB PO PRN (16:45)
[2016-08-20] MEDS ORDERED: OLOPATADINE HCL 0.1% OPHT SOLN 5 ML BTL EACH EYE PRN (17:00)
[2016-08-20] MEDS: HEPARIN SODIUM - SQ 10,000 UNITS/ML VIAL SQ SCH (17:32)
[2016-08-20] MEDS: IPRATROPIUM ALBUTEROL INH SCH (17:35)
--- NOTE | 2016-08-20 17:58 | HHI.HP ---
[facility] Venice Mota MD Admission Diagnosis chest pain, freq PVC's, CAD Diagnoses: (1) Chest pain Chief Complaint: Intermittent chest tightness x 2 days Travel History International Travel<30 Days: No Contact w/Intl Traveler <30 Da: No Traveled to Known Affected Are: No History of Present Illness Mr. Sutherland is a 65-year-old male with a known medical history of congestive heart failure, hypertension, dyslipidemia, chronic obstructive pulmonary disease , AICD placement, CAD with CABG and stent placement x 3, cirrhosis, type 2 diabetes mellitus, asthma, atrial fibrillation, anxiety and depression who presented to the ED with complaints of midsternal chest tightness for 2 days. Patient states that the pain is intermittent, occurs at rest, dull in nature, 5/ 10 at its worst, not worse with exertion, denies radiation, pain relieved without requiring Nitroglycerin. Patient states awakening this am he noticed this similar chest pain return with associated generalized weakness which prompted his presentation to the ED. Patient seen by Dr. Davenport outpatient setting. At this time, patient is seen and examined lying in bed comfortably, midsternal chest pain rated a 2/10 on pain scale, intermittent, dull in nature with no radiation. Denies any recent fever, chills, shortness of breath, cough, abdominal pain, n/v or dysuria. Review of Systems Cardiovascular: COMPLAINS OF: Chest pain, Palpitations Except as stated in HPI: all other systems reviewed are Neg Past Family Social History Past Medical History Asthma Atrial fibrillation Anxiety Depression Congestive heart failure Hypertension Hyperlipidemia Chronic obstructive pulmonary disease Cirrhosis Type 2 diabetes mellitus Past Surgical History CABG with stent placement x 3 Hernia repair AICD Bilateral leg stenting Reported Medications Active Reported Bumetanide 0.5 Mg Tab 0.5 Mg PO DAILY Aspirin 81 Mg Chew 81 Mg CHEW DAILY B-1 (Thiamine HCl) 250 Mg Tab 250 Mg PO DAILY Tresiba Flextouch Pen Inj (Insulin Degludec Inj) 300 unit/3 ML Pen 70 Units SQ DAILY Trulicity Inj (Dulaglutide Inj) 0.75 Mg/0.5 Ml Pen 0.75 Mg SQ Q7D ON TUESDAYS Sotalol (Sotalol HCl) 80 Mg Tab 80 Mg PO BID Sertraline (Sertraline HCl) 50 Mg Tab 50 Mg PO DAILY ZyrTEC Itchy Eye Opth Drops (Ketotifen Opth Drops) 0.025% Drops 1 Drop EACH EYE DAILY Atorvastatin (Atorvastatin Calcium) 40 Mg Tab 40 Mg PO DAILY D3 (Cholecalciferol) 1,000 Unit Tab 1,000 Units PO DAILY Flonase Nasal Nelson (Fluticasone Nasal Nelson) 50 Mcg/Act Nelson 2 Nelson EACH NARE DAILY Nitroglycerin SL (Nitroglycerin) 0.4 Mg Subl 0.4 Mg SL DIRECTED ONE TABLET UNDER THE TONGUE NEEDED FOR CHEST PAIN, MAY REPEAT EVERY FIVE MINUTES FOR A TOTAL OF 3 DOSES OR CALL 911 IF NO RELIEF Combivent Respimat Inh (Ipratropium-Albuterol Inh) 20-100 Senior Living/Act Aero 2 Puff INH BID Allergies: Coded Allergies: No Known Allergies (Unverified , 08/20/16) Active Ordered Medications Current Medications Medications (Trade) Dose Ordered Sig/Yakelin Route Start Time Stop Time Status Last Admin (Aspirin Chew) 81 mg DAILY CHEW 08/21/16 09:00 (Lipitor) 40 mg DAILY PO 08/21/16 09:00 (Bumetanide) 0.5 mg DAILY PO 08/21/16 09:00 (Vitamin D3) 1,000 units DAILY PO 08/21/16 09:00 (Zoloft) 50 mg DAILY PO 08/21/16 09:00 (Betapace) 80 mg BID PO 08/20/16 21:00 Patient Own Medication PT OWN MED: (Ipratropium-Albutero... BID INH 08/20/16 21:00 (Patanol 0.1% Opth) 1 drop BID PRN EACH EYE 08/20/16 17:00 Thiamine HCl 250 mg 250 mg DAILY PO 08/20/16 18:00 (NS 1000 ml Inj) 1,000 ml @ 42 mls/hr [id number] IV 08/20/16 16:42 (NS Flush) 2 ml UNSCH PRN IV FLUSH 08/20/16 16:45 (NS Flush) 2 ml BID IV FLUSH 08/20/16 21:00 (Tylenol) 650 mg Q4H PRN PO 08/20/16 16:45 (Zofran Inj) 4 mg Q6H PRN IVP 08/20/16 16:45 (Heparin Inj) 5,000 units Q8H SQ 08/20/16 18:00 (Narcan Inj) 0.4 mg UNSCH PRN IV 08/20/16 16:45 (Caty-Colace) 1 tab BID PO 08/20/16 21:00 (Milk Of Magnesia Liq) 30 ml Q12H PRN PO 08/20/16 16:45 (Senokot) 17.2 mg Q12H PRN PO 08/20/16 16:45 (Dulcolax Supp) 10 mg DAILY PRN RECTAL 08/20/16 16:45 (Lactulose Liq) 30 ml DAILY PRN PO 08/20/16 16:45 Family History Paternal medial history significant for HI. Maternal history not significant for any cardiovascular disease, pulmonary disease or cancer. Social History Patient is . Has 3 sons. Denies any current tobacco use, does admit to a [id number] smoking history. Does have 2-3 beers per day with dinner. Denies any illicit drug use. Physical Exam Vital Signs Vital Signs Date Time Temp Pulse Resp B/P Pulse Ox O2 Delivery O2 Flow Rate FiO2 08/20/16 15:46 90 18 145/80 97 08/20/16 15:26 96 Nasal Cannula 2 08/20/16 14:48 20 08/20/16 14:47 88 20 150/73 97 Nasal Cannula 2 08/20/16 14:31 98.7 53 18 147/80 96 Room Air Physical Exam GENERAL: Obese patient, lying in bed comfortably in no apparent distress. SKIN: No rashes, ecchymoses or lesions. Warm and dry. HEAD: Atraumatic. Normocephalic. Pupils equal round and reactive. Extraocular motions intact. No scleral icterus. No injection or drainage. Nose without bleeding. Airway patent. NECK: Trachea midline. No JVD or lymphadenopathy. Supple. CARDIOVASCULAR: Regular rate and rhythm. No murmur appreciated. RESPIRATORY: Clear to auscultation. Breath sounds equal bilaterally. No wheezes , rales, or rhonchi. GASTROINTESTINAL: Abdomen soft, non-tender, nondistended. No guarding. MUSCULOSKELETAL: Extremities without clubbing, cyanosis, or edema. No joint tenderness, effusion, or edema noted. NEUROLOGICAL: Awake and alert. Cranial nerves II through XII intact. Motor and sensory grossly within normal limits. Five out of 5 muscle strength in all muscle groups. Normal speech. Laboratory Laboratory Tests Test 08/20/16 15:00 White Blood Count 7.5 Red Blood Count 4.29 Hemoglobin 13.8 Hematocrit 40.1 Mean Corpuscular Volume 93.5 Mean Corpuscular Hemoglobin 32.1 Mean Corpuscular Hemoglobin 34.4 Concent Red Cell Distribution Width 15.8 Platelet Count 108 Mean Platelet Volume 9.2 Neutrophils (%) (Auto) 77.3 Lymphocytes (%) (Auto) 11.6 Monocytes (%) (Auto) 9.2 Eosinophils (%) (Auto) 1.5 Basophils (%) (Auto) 0.4 Neutrophils # (Auto) 5.8 Lymphocytes # (Auto) 0.9 Monocytes # (Auto) 0.7 Eosinophils # (Auto) 0.1 Basophils # (Auto) 0.0 CBC Comment DIFF FINAL Differential Comment Prothrombin Time 12.4 Prothromb Time International 1.1 Ratio Activated Partial 28.0 Thromboplast Time Sodium Level 136 Potassium Level 3.8 Chloride Level 98 Carbon Dioxide Level 26.5 Anion Gap 12 Blood Urea Nitrogen 6 Creatinine 0.79 Estimat Glomerular Filtration 99 Rate Random Glucose 199 Calcium Level 8.3 Total Creatine Kinase 112 Creatine Kinase MB 2.3 Troponin I 0.03 Result Diagram: 08/20/16 1500 08/20/16 1500 Imaging Last Impressions Chest X-Ray 08/20/16 1454 Signed Impressions: Service Date/Time: July 16:05 - CONCLUSION: No acute disease Shawn Hopper MD Assessment and Plan Assessment and Plan Mr. Sutherland is a 65-year-old male with a known medical history of congestive heart failure, hypertension, dyslipidemia, chronic obstructive pulmonary disease , AICD placement, CAD with CABG and stent placement x 3, cirrhosis, type 2 diabetes mellitus, asthma, atrial fibrillation, anxiety and depression who presented to the ED with complaints of midsternal chest tightness for 2 days. Patient states that the pain is intermittent, occurs at rest, dull in nature, 5/ 10 at its worst, not worse with exertion, denies radiation, pain relieved without requiring Nitroglycerin. Patient states awakening this am he noticed this similar chest pain return with associated generalized weakness which prompted his presentation to the ED. Atypical chest pain: suspect secondary to history of coronary artery disease - Troponin initially 0.03. Will trend and follow. - EKG reviewed and showing paced rhythm with no arrhythmias or ST changes/ elevation. - Chest x-ray images reviewed showing no acute disease. - Consult cardiology, Dr. Davenport known to patient, appreciate recommendations. - Continue aspirin 81 mg PO daily. Continue Lipitor 40 mg PO daily. Continue Betapace 80 mg PO BID. - Start topical Nitropaste Q8hr. - Supplemental O2 as needed. - Continuous telemetry monitoring. - Heart healthy diet as tolerated. Hypertension, chronic: Controlled at this time. Monitor. Chronic systolic congestive heart failure - non exacerbation. - ECHO reviewed from 06/2016 showing systolic function severely reduced. EF 20-25%. Mild to moderate mitral valve regurgitation. Mild tricuspid valve regurgitation. - Continue Bumex 0.5 mg PO daily. BMP in am, follow. Type 2 diabetes mellitus, chronic: ACCU checks with sliding scale insulin, cover as needed. Atrial fibrillation, chronic: Continue home Betapace. EKG reviewed, findings as above. Alcohol abuse: Daily alcohol use. Start CIWA protocol. Monitor withdrawal. Add folic acid, multivitamin and thiamine. Obesity strongly recommended diet and exercise as outpatient DVT prophylaxis: Heparin 5,000 units sq Q8hr. Other chronic medical problems include anxiety, depression, COPD, hyperlipidemia , AICD, cirrhosis, and asthma and are currently stable. Resume home medications as indicated. Follow. Code Status Full Code Discussed Condition With patient discussed with ER Physician Doctor Anam Pirece and PA Chasity Gibbs appreciated, patient evaluated in Emergency Room, orders placed, plan of care discussed with patient he states he is a patient of rehabilitation specialist Doctor Matt Davenport he was consulted All questions answered to the best of my abilities. Problem Qualifiers (1) Chest pain: Qualified Code: R07.9 - Chest pain, unspecified type Chasity Gibbs August 20, 2016 17:58 Mckay Wynne MD August 20, 2016 18:33 Chasity Gibbs August 20, 2016 17:58 Mckay Wynne MD August 20, 2016 18:33
[2016-08-20] MEDS ORDERED: THIAMINE HCL 100 MG TAB PO SCH (18:00)
[2016-08-20] MEDS: ONDANSETRON HCL 4 MG/2 ML VIAL IVP PRN (18:20)
[2016-08-20] MEDS ORDERED: cloNIDine HCL 0.1 MG TAB PO PRN (18:30)
[2016-08-20] MEDS ORDERED: LORazepam 2 MG/ML VIAL IV PUSH PRN ×2 (18:30)
[2016-08-20] MEDS ORDERED: LORazepam 2 MG TAB PO PRN (18:30)
[2016-08-20] MEDS ORDERED: LORazepam 1 MG TAB PO PRN (18:30)
[2016-08-20] MEDS ORDERED: FLUMAZENIL 0.5 MG/5 ML VIAL IV PUSH PRN (18:30)
[2016-08-20] MEDS: RESP: IPRATROPIUM 0.5 MG/2.5 ML NEB NEB SCH ×2 (20:29→23:09)
[2016-08-20] MEDS: RESP: BUDESONIDE 0.5 MG/2 ML NEB NEB SCH (20:29)
[2016-08-20] MEDS: DOCUSATE SODIUM 50 MG/SENNA 8.6 MG TAB PO SCH (21:27)
[2016-08-20] MEDS: SOTALOL HCL 80 MG TAB PO SCH (21:27)
[2016-08-20] MEDS: SODIUM CHLORIDE 0.9% FLUSH 10 ML FLUSH IV FLUSH SCH (21:27)
[2016-08-20] MEDS: guaiFENesin E.R. 600 MG TAB PO SCH (21:27)
[2016-08-20] MEDS: NITROGLYCERIN 2% OINT 1 GM PACKET TOPICAL SCH (21:28)
[2016-08-20] MEDS: INSULIN NovoLIN REGULAR SUPPLEMENTAL SCALE SQ SCH (21:36)
[2016-08-20 22:56] LABS: BICARBONATE 30.1 MEQ/L (21.0-32.0); MAGNESIUM 1.5 MG/DL (1.5-2.5); POTASSIUM 3.9 MEQ/L (3.5-5.1)
[2016-08-21] VITALS (11 sets, daily range): BP systolic 95–198; BP diastolic 61–79; PULSE 70–80; RESP 16–20; TEMP 97.8–98.1; O2SAT 72–97
[2016-08-21] MEDS: RESP: IPRATROPIUM 0.5 MG/2.5 ML NEB NEB SCH ×4 (02:53→15:17)
[2016-08-21] MEDS: HEPARIN SODIUM - SQ 10,000 UNITS/ML VIAL SQ SCH ×3 (03:08→18:05)
[2016-08-21 03:17] LABS: AUTOMATED NEUTROPHIL # 5.1 TH/MM3 (1.8-7.7); BASOPHIL # 0.1 TH/MM3 (0-0.2); BASOPHIL % 1.5 % (0.0-2.0); EOSINOPHIL # 0.1 TH/MM3 (0-0.4); EOSINOPHIL % 1.6 % (0.0-4.0); HEMATOCRIT 39.5 % (39.0-51.0); LYMPH % 13.3 % (9.0-44.0); LYMPHOCYTE # 0.9 TH/MM3 (1.0-4.8); MEAN CELL VOLUME 95.2 FL (80.0-100.0); MEAN CORPUSCULAR HEMOGLOBIN 30.8 PG (27.0-34.0); MEAN CORPUSCULAR HGB CONC 32.3 % (32.0-36.0); MONO % 10.1 % (0.0-8.0); NEUT % 73.5 % (16.0-70.0); PLATELET COUNT 87 TH/MM3 (150-450); RED BLOOD COUNT 4.15 MIL/MM3 (4.50-5.90); RED CELL DISTRIBUTION WIDTH 16.1 % (11.6-17.2); WHITE BLOOD COUNT 6.9 TH/MM3 (4.0-11.0)
[2016-08-21 03:20] LABS: HEMO FLAGS AUTO DIFF
[2016-08-21 03:35] LABS: TOTAL BILIRUBIN ADULT 1.4 MG/DL (0.2-1.0)
[2016-08-21 03:36] LABS: BICARBONATE 33.3 MEQ/L (21.0-32.0); INDIRECT BILIRUBIN 1.1 MG/DL (0.0-0.8); POTASSIUM 4.5 MEQ/L (3.5-5.1)
[2016-08-21 03:49] LABS: INTERNATIONAL NORMALIZED RATIO 1.1 RATIO; PROTHROMBIN TIME - PATIENT 12.7 SEC (9.8-11.6)
[2016-08-21] MEDS: NITROGLYCERIN 2% OINT 1 GM PACKET TOPICAL SCH (06:08)
[2016-08-21 06:48] LABS: PLATELET ESTIMATE SMEAR LOW (NORMAL); PLATELET MORPHOLOGY NORMAL (NORMAL); SCAN/DIFF AUTO DIFF CONFIRMED
[2016-08-21] MEDS: RESP: BUDESONIDE 0.5 MG/2 ML NEB NEB SCH (07:09)
[2016-08-21] MEDS ORDERED: ASPIRIN 81 MG CHEW TAB CHEW SCH (09:00)
[2016-08-21] MEDS ORDERED: THIAMINE HCL 100 MG TAB PO SCH (09:00)
[2016-08-21] MEDS: IPRATROPIUM ALBUTEROL INH SCH (09:00)
[2016-08-21] MEDS ORDERED: ATORVASTATIN 40 MG TAB PO SCH (09:00)
[2016-08-21] MEDS ORDERED: FOLIC ACID 1 MG TAB PO SCH (09:00)
[2016-08-21] MEDS ORDERED: SERTRALINE HCL 50 MG TAB PO SCH (09:00)
[2016-08-21] MEDS: SOTALOL HCL 80 MG TAB PO SCH (09:00)
[2016-08-21] MEDS ORDERED: MULTIVITAMINS/MINERALS THERAPEUTIC TAB PO SCH (09:00)
[2016-08-21] MEDS ORDERED: CHOLECALCIFEROL (VIT D3) 1000 UNIT TAB PO SCH (09:00)
[2016-08-21] MEDS ORDERED: BUMETANIDE 1 MG TAB PO SCH (09:00)
--- NOTE | 2016-08-21 09:20 | HHI.PR ---
Subjective Remarks Follow-up for chest pain. SO at bedside. The patient states that he feels bad today because his blood pressure dropped after receiving nitroglycerin paste, which did not relieve his chest discomfort. The patient continues to complain of intermittent episodes of chest pain overnight. He describes the pain as dull , intermittent, lasting 510 minutes, 3 days, no radiation, sometimes associated shortness of breath, no associated nausea or diaphoresis, located in the anterior left lower chest. He denies any palpitations or lower extremity swelling. Awaiting cardiology evaluation. Objective Vitals Vital Signs Date Time Temp Pulse Resp B/P Pulse Ox O2 Delivery O2 Flow Rate FiO2 08/21/16 08:49 98.0 72 20 95/69 96 08/21/16 08:48 97.8 72 18 95/68 72 08/21/16 07:12 94 21 08/21/16 04:02 98.1 75 16 119/65 92 08/21/16 00:07 98.1 73 16 111/71 94 08/20/16 20:31 97 21 08/20/16 20:05 98.4 90 20 126/76 94 08/20/16 18:48 98.3 88 16 141/74 95 08/20/16 15:46 90 18 145/80 97 08/20/16 15:26 96 Nasal Cannula 2 08/20/16 15:26 96 Nasal Cannula 3.00 08/20/16 14:48 20 08/20/16 14:47 88 20 150/73 97 Nasal Cannula 2 08/20/16 14:31 98.7 53 18 147/80 96 Room Air Result Diagram: 08/21/16 0250 08/21/16 0250 Imaging Last Impressions Chest X-Ray 08/20/16 1454 Signed Impressions: Service Date/Time: July 16:05 - CONCLUSION: No acute disease Shawn Hpoper MD Objective Remarks GENERAL: Well-developed well-nourished. In no acute distress. SKIN: Warm and dry. No lesions noted. HEENT: Normocephalic. Pupils equal and round. Mucous membranes pink and moist. CARDIOVASCULAR: Regular rate and rhythm. No murmur appreciated. No chest wall TTP. RESPIRATORY: No accessory muscle use. Clear to auscultation. Breath sounds equal bilaterally. GASTROINTESTINAL: Abdomen soft, non-tender, nondistended. Bowel sounds x4. MUSCULOSKELETAL: No obvious deformities. No clubbing or cyanosis. No edema. NEUROLOGICAL: Awake and alert. No focal neurological deficits. Moves upper and lower extremities spontaneously. Normal speech. PSYCHIATRIC: Appropriate mood and affect; insight and judgment normal. A/P Problem List: (1) Chest pain ICD Code: R07.9 Status: Acute Assessment and Plan Mr. Sutherland is a 65-year-old male with a known medical history of congestive heart failure, hypertension, dyslipidemia, chronic obstructive pulmonary disease , AICD placement, CAD with CABG and stent placement x 3, cirrhosis, type 2 diabetes mellitus, asthma, atrial fibrillation, anxiety and depression who presented to the ED with complaints of midsternal chest tightness for 2 days. Patient states that the pain is intermittent, occurs at rest, dull in nature, 5/ 10 at its worst, not worse with exertion, denies radiation, pain relieved without requiring Nitroglycerin. Patient states awakening this am he noticed this similar chest pain return with associated generalized weakness which prompted his presentation to the ED. Atypical chest pain with history of coronary artery disease - Troponin 0.03, 0.04, 0.03. - EKG personally reviewed, shows paced rhythm with no definite ischemic changes, no significant change from previous. 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 Davenport, appreciate recommendations. - Continue aspirin 81 mg PO daily. Continue Lipitor 40 mg PO daily. Continue Betapace 80 mg PO BID. - Discontinue Nitropaste with hypotension - Supplemental O2 as needed. - May need additional antianginal therapy vs cardiac intervention, follow-up recs Hypertension, chronic: Controlled at this time. Monitor. Chronic systolic congestive heart failure - not in exacerbation. - ECHO reviewed from 06/2016 showing systolic function severely reduced. EF 20-25%. Mild to moderate mitral valve regurgitation. Mild tricuspid valve regurgitation. - Chest x-ray reviewed showing no acute disease. - Continue Bumex 0.5 mg PO daily. Renal function stable. Type 2 diabetes mellitus, chronic: ACCU checks with sliding scale insulin, cover as needed. Atrial fibrillation, chronic: Continue home Betapace. EKG reviewed, findings as above. Monitor on telemetry. Alcohol abuse: Daily alcohol use. [facility] protocol. Monitor for withdrawal. Folic acid, multivitamin and thiamine. History of cirrhosis: Chronic. Patient states he follows with a liver specialist. Bilirubin and AST are minimally elevated and are stable upon review of previous labs. Continue outpatient hepatology follow-up. Other chronic medical problems include anxiety, depression, COPD, hyperlipidemia , AICD and asthma and are currently stable. Continue home medications as indicated. Follow. DVT prophylaxis: Heparin 5,000 units sq Q8hr Discharge Planning Follow-up cardiology recommendations. 1850 D/W Dr. Davenport. Patient is clear for discharge from cardiology perspective on Imdur 30 mg daily. Plan of care D/W the patient and all questions answered. Discharge patient to home Condition on discharge: Improved Heart healthy diabetic Diet as tolerated Ad Enma activity Rx written: Imdur Follow-up with primary care physician and cardiology Problem Qualifiers (1) Chest pain: Qualified Code: R07.9 - Chest pain, unspecified type Nir Walter August 21, 2016 09:20
[2016-08-21] MEDS: ONDANSETRON HCL 4 MG/2 ML VIAL IVP PRN (09:31)
[2016-08-21] MEDS: DOCUSATE SODIUM 50 MG/SENNA 8.6 MG TAB PO SCH (10:11)
[2016-08-21] MEDS: guaiFENesin E.R. 600 MG TAB PO SCH (10:11)
[2016-08-21] MEDS: SODIUM CHLORIDE 0.9% FLUSH 10 ML FLUSH IV FLUSH SCH (10:12)
[2016-08-21] MEDS: INSULIN NovoLIN REGULAR SUPPLEMENTAL SCALE SQ SCH ×2 (11:00→16:00)
--- NOTE | 2016-08-21 14:29 | EKG ---
Date Performed: 08/20/2016 Time Performed: 21:43:44 PTAGE: 65 years EKG: ELECTRONIC VENTRICULAR PACEMAKER MARKED ST DEPRESSION, CONSIDER SUBENDOCARDIAL INJURY ABNO RMAL ECG Compared to prior tracing no significant change PREVIOUS TRACING : 08/20/2016 14.47 DOCTOR: Franklyn Carney Interpretating Date/Time 08/21/2016 14:23:40
--- NOTE | 2016-08-21 14:29 | EKG ---
Date Performed: 08/20/2016 Time Performed: 23:28:32 PTAGE: 65 years EKG: Demand pacing Pacemaker rhythm - no further analysis Compared to prior tracing no significa nt change Abnormal ECG PREVIOUS TRACING : 08/20/2016 21.43 DOCTOR: Franklyn Carney Interpretating Date/Time 08/21/2016 14:23:31
--- NOTE | 2016-08-21 14:29 | EKG ---
Date Performed: 08/20/2016 Time Performed: 14:47:09 PTAGE: 65 years EKG: ELECTRONIC VENTRICULAR PACEMAKER ABNORMAL RHYTHM ECG Compared to prior tracing no significa nt change PREVIOUS TRACING : 07/31/2016 14.25 DOCTOR: Franklyn Carney Interpretating Date/Time 08/25/2016 10:34:37
[2016-08-21] MEDS ORDERED: ISOS30TA3 PO (18:52)
--- NOTE | 2016-08-21 19:47 | MB ---
cc: JHONNY FRANKLIN M.D. DATE OF CONSULTATION: 08/21/2016. REASON FOR CONSULTATION: Chest pain, recurrent PVCs. HISTORY OF PRESENT ILLNESS: Mr. Sutherland is a 65-year-old gentleman with coronary artery disease who is not a candidate for revascularization with a previous defibrillator implanted with recurrent episode of ventricular tachycardia with multiple hospitalizations. He was admitted due to chest pain. During hospitalization, his symptoms improved. I was consulted for evaluation and management. The chart was reviewed. The patient was evaluated. ALLERGIES: None reported. SOCIAL HISTORY: Negative for smoking and drinking. FAMILY HISTORY: Noncontributory to his current medical condition. MEDICATIONS: Currently he is on: 1. Acetaminophen. 2. Aspirin. 3. Lipitor 40 milligrams a day. 4. He is on Bumex 0.5 milligrams a day. 5. He is on folic acid. 6. Mucinex. 7. Heparin subcutaneous. 8. A multivitamin. 9. Sertraline. 10. Timolol 80 milligrams twice a day. 11. Thiamine. REVIEW OF SYSTEMS: Currently the gentleman refers no chest pain and he is feeling better. No chest discomfort. No fever. PHYSICAL EXAMINATION: GENERAL: Alert, fully oriented. VITAL SIGNS: His blood pressure on hospitalization was 95/68 and currently it is 128/78, pulse 78, respiratory rate 18. LUNGS: Ventilated. CARDIOVASCULAR: S1 and S2. No gallop. No murmur. ABDOMEN: Abdomen soft, no mass, no bruits. EXTREMITIES: Left infraclavicular area device. No edema. EKGS: Electrocardiogram shows AV sequential pacing. LABORATORY DATA: Hemoglobin 12.8, white blood cell 6.9. Potassium 4.5, creatinine 0.86. INR 1.1. ASSESSMENT AND RECOMMENDATIONS: Mr. Sutherland's condition has significantly improved. No chest pain or chest discomfort. Blood pressure adequate. The gentleman is not on EDISON inhibitors because of blood pressure previous hospitalization. Currently on hospitalization he was 95 to 96. At this point, he is 128/78. My recommendation is to continue with current management. Reinitiate EDSION inhibitor like Altace at 1.25 milligrams a day to see if the patient tolerates. Currently is asymptomatic. No chest pain or chest discomfort. He is doing better. He is in a better mood today. His depression is improving. He is not too anxious. My recommendation at this point is continue with current management. If the patient is able to tolerate EDISON inhibitor, we can have Altace at 1.25 milligrams once a day. He can be discharged home and follow as an outpatient. This is basically end-stage heart disease. I will be available on a p.r.n. basis. MD GINNY Zambrano/DEMI /6:54 PM /7:35 PM
== END 2016-08-21 20:09 | disposition home or self-care (01) ==
LOC: NEPC 14:29 → NEDA 17:07 → NEPGCP 18:48
PROVIDERS: ADMIT Internal Medicine; ATTEND Internal Medicine
DX: R07.89 Other chest pain (principal); I25.10 Atherosclerotic heart disease of native coronary artery without angina pectoris; I11.0 Hypertensive heart disease with heart failure; I50.22 Chronic systolic (congestive) heart failure; I48.2 Chronic atrial fibrillation; I08.1 Rheumatic disorders of both mitral and tricuspid valves; I49.3 Ventricular premature depolarization; I47.2 Ventricular tachycardia; E11.9 Type 2 diabetes mellitus without complications; K74.60 Unspecified cirrhosis of liver; F10.10 Alcohol abuse, uncomplicated; E78.5 Hyperlipidemia, unspecified; J44.9 Chronic obstructive pulmonary disease, unspecified; F32.9 Major depressive disorder, single episode, unspecified; Z95.1 Presence of aortocoronary bypass graft; Z95.810 Presence of automatic (implantable) cardiac defibrillator
CPT/HCPCS: 71010; 80048; 80076; 82550; 82552; 82948; 83735; 84484; 85025; 85610; 85730; 93005; 94150; 94640; 94664; 99285; G0378; J1644; J2405; J7030; J7626; J7644

== ENCOUNTER 2016-09-07 09:46 | Observation (INO) | payer OTHER ==
[2016-09-07] VITALS (11 sets, daily range): BP systolic 111–174; BP diastolic 67–92; PULSE 70–98; RESP 18–24; TEMP 97.7–99; O2SAT 92–98
[~2016-09-07] VITALS: Ht 167.6 cm; Wt 92.0 kg
[~2016-09-07 09:46] MED LIST changes: -ASPI1TAB69 PO; +ASPI81CH CHEW; +B-1250TA PO; +BUME0.5T PO; -BUME1TAB25 PO; +ISOS30TA3 PO; -VITA100T2 PO
[2016-09-07] MEDS: NITROGLYCERIN 0.4 MG SL 25 TABS/BTL SL SCH ×3 (10:12→10:39)
[2016-09-07] MEDS ORDERED: SODIUM CHLORIDE 0.9% FLUSH 10 ML FLUSH IVF PRN (10:15)
[2016-09-07] MEDS ORDERED: NITROGLYCERIN 2% OINT 1 GM PACKET TOP ONE (10:15)
[2016-09-07] MEDS ORDERED: ASPIRIN 81 MG CHEW TAB PO ONE (10:15)
[2016-09-07 10:23] LABS: BASOPHIL % 0.4 % (0.0-2.0); EOSINOPHIL # 0.1 TH/MM3 (0-0.4); EOSINOPHIL % 1.1 % (0.0-4.0); HEMATOCRIT 41.1 % (39.0-51.0); HEMO FLAGS DIFF FINAL; LYMPH % 9.6 % (9.0-44.0); LYMPHOCYTE # 0.7 TH/MM3 (1.0-4.8); MEAN CELL VOLUME 94.9 FL (80.0-100.0); MEAN CORPUSCULAR HGB CONC 33.7 % (32.0-36.0); MONO % 10.3 % (0.0-8.0); NEUT % 78.6 % (16.0-70.0); PLATELET COUNT 122 TH/MM3 (150-450); RED BLOOD COUNT 4.33 MIL/MM3 (4.50-5.90); RED CELL DISTRIBUTION WIDTH 16.5 % (11.6-17.2); WHITE BLOOD COUNT 7.7 TH/MM3 (4.0-11.0)
[2016-09-07 10:33] LABS: APTT (PATIENT) 28.9 SEC (24.3-30.1); INTERNATIONAL NORMALIZED RATIO 1.1 RATIO; PROTHROMBIN TIME - PATIENT 12.3 SEC (9.8-11.6)
[2016-09-07 10:39] LABS: ANION GAP 7 MEQ/L (5-15); BICARBONATE 32.2 MEQ/L (21.0-32.0); BLOOD UREA NITROGEN 6 MG/DL (7-18); CHLORIDE 99 MEQ/L (98-107); GLOMERULAR FILTRATION RATE 86 ML/MIN (>89); MAGNESIUM 1.4 MG/DL (1.5-2.5); SODIUM (NA) 138 MEQ/L (136-145)
[2016-09-07 10:42] LABS: CREATINE KINASE 175 U/L (39-308)
--- NOTE | 2016-09-07 11:06 | PD ---
HPI Chief Complaint: Chest Pain Time Seen by Provider: 10:03 Travel History International Travel<30 days: No Contact w/Intl Traveler<30days: No Traveled to known affect area: No History of Present Illness HPI Mr. Sutherland is a very pleasant 65-year-old male with a history of coronary artery disease, who presents today with complaints of intermittent chest pain 2 weeks. The patient reports that it lasts up to 10 minutes at a time. Her no exacerbating or relieving factors. The patient states that today it got worse and he came here for further evaluation. He reports associated nausea and diaphoresis. He also reports shortness of breath. There is no productive cough. There are no other complaints time my examination. The patient had bypass 20 years ago. PFSH Past Medical History Hx Anticoagulant Therapy: Yes (ASA ) Arthritis: No Asthma: Yes Atrial Fibrillation: Yes Autoimmune Disease: No Blood Disorders: No Anxiety: Yes Depression: Yes Heart Rhythm Problems: Yes Cancer: No Cardiac Catheterization: Yes Cardiovascular Problems: Yes (CHF) High Cholesterol: Yes Chemotherapy: No Chest Pain: Yes Congestive Heart Failure: Yes Cirrhosis: Yes COPD: Yes Cerebrovascular Accident: No Diabetes: Yes Patient Takes Glucophage: No Diminished Hearing: No Endocrine: Yes (Diabetes Mellitus) Gastrointestinal Disorders: Yes (ASCITES) GERD: No Glaucoma: No Genitourinary: Yes (mary) Headaches: Yes Hepatitis: No Hiatal Hernia: No Heparin Induced Thrombocytopen: No Hypertension: Yes Immune Disorder: No Implanted Vascular Access Dvce: Yes Kidney Stones: No Musculoskeletal: No Neurologic: Yes (tremors) Psychiatric: No Reproductive: No Respiratory: Yes (COPD) Integumentary: No Immunizations Current: No Migraines: No Pneumonia: Yes Radiation Therapy: No Renal Failure: No Seizures: No Sickle Cell Disease: No Sleep Apnea: Yes Thyroid Disease: No Ulcer: No Tetanus Vaccination: > 5 Years Influenza Vaccination: Yes Past Surgical History Abdominal Surgery: Yes (hernia repair) AICD: Yes ([place]/PACER) Arteriovenous Shunt: No Body Medical Devices: STENTS TAYA LEGS [employer] HEART, DEFIBRILLATOR Coronary Artery Bypass Graft: Yes (TRIPLE) Coronary Stent: Yes (X3) Ear Surgery: No Endocrine Surgery: No Eye Surgery: No Genitourinary Surgery: No Gynecologic Surgery: No Insulin Pump: No Joint Replacement: No Neurologic Surgery: No Oral Surgery: No Pacemaker: Yes (AICD) Other Surgery: Yes (CABG, TAYA L.E. STENTS, AICD) Social History Alcohol Use: No (ocassionally) Tobacco Use: No (QUIT A YEAR AGO ) Substance Use: No Allergies-Medications (Allergen,Severity, Reaction): Coded Allergies: No Known Allergies (Unverified , 09/07/16) Reported Meds & Prescriptions Reported Meds & Active Scripts Active Isosorbide Mononitrate ER (Isosorbide Mononitrate) 30 Mg Scotty 30 Mg PO DAILY Reported Bumetanide 0.5 Mg Tab 0.5 Mg PO DAILY Aspirin 81 Mg Chew 81 Mg CHEW DAILY B-1 (Thiamine HCl) 250 Mg Tab 250 Mg PO DAILY Tresiba Flextouch Pen Inj (Insulin Degludec Inj) 300 unit/3 ML Pen 10 Units SQ DAILY Trulicity Inj (Dulaglutide Inj) 0.75 Mg/0.5 Ml Pen 0.75 Mg SQ Q7D ON TUESDAYS Sotalol (Sotalol HCl) 80 Mg Tab 80 Mg PO BID Sertraline (Sertraline HCl) 50 Mg Tab 50 Mg PO DAILY ZyrTEC Itchy Eye Opth Drops (Ketotifen Opth Drops) 0.025% Drops 1 Drop EACH EYE DAILY Atorvastatin (Atorvastatin Calcium) 40 Mg Tab 40 Mg PO DAILY D3 (Cholecalciferol) 1,000 Unit Tab 1,000 Units PO DAILY Flonase Nasal [place] (Fluticasone Nasal [place]) 50 Mcg/Act [place] 2 [place] EACH NARE DAILY Nitroglycerin SL (Nitroglycerin) 0.4 Mg Subl 0.4 Mg SL DIRECTED ONE TABLET UNDER THE TONGUE NEEDED FOR CHEST PAIN, MAY REPEAT EVERY FIVE MINUTES FOR A TOTAL OF 3 DOSES OR CALL 911 IF NO RELIEF Combivent Respimat Inh (Ipratropium-Albuterol Inh) 20-100 [place]/Act Aero 2 Puff INH BID Review of Systems Except as stated in HPI: all other systems reviewed are Neg General / Constitutional: No: Fever, Chills HENT: No: Headaches, Lightheadedness Cardiovascular: Positive: Chest Pain or Discomfort (left sided described as achy 6-7 on pain scale at worst), Diaphoresis, No: Palpitations Respiratory: Positive: Shortness of Breath, No: Cough Gastrointestinal: Positive: Nausea Genitourinary: No: Frequency, Dysuria Musculoskeletal: No: Weakness, Pain Neurologic: No: Weakness, Dizziness, Headache Physical Exam Narrative GENERAL: Well-developed well-nourished male in no acute respiratory distress. SKIN: Focused skin assessment warm/dry. HEAD: Atraumatic. Normocephalic. EYES: No scleral icterus. No injection or drainage. ENT: No nasal bleeding or discharge. Mucous membranes pink and moist. NECK: Trachea midline. No JVD. Supple CARDIOVASCULAR: Paced rhythm. No obvious murmurs appreciated. RESPIRATORY: No accessory muscle use. Clear to auscultation. Breath sounds equal bilaterally. GASTROINTESTINAL: Abdomen soft, non-tender, nondistended. MUSCULOSKELETAL: No obvious deformities. No clubbing. No cyanosis. Trace pretibial edema. NEUROLOGICAL: Awake and alert. No obvious cranial nerve deficits. Motor grossly within normal limits. Normal speech. PSYCHIATRIC: Appropriate mood and affect; insight and judgment normal. Data Data Last Documented VS Vital Signs Date Time Temp Pulse Resp B/P Pulse Ox O2 Delivery O2 Flow Rate FiO2 09/07/16 10:44 18 09/07/16 10:40 94 125/76 98 Nasal Cannula 3 09/07/16 10:38 97.8 Orders Electrocardiogram (09/07/16 10:03) Basic Metabolic Panel (Bmp) (09/07/16 10:03) Ckmb (Isoenzyme) Profile (09/07/16 10:03) Complete Blood Count With Diff (09/07/16 10:03) Magnesium (Mg) (09/07/16 10:03) Prothrombin Time / Inr (Pt) (09/07/16 10:03) Act Partial Throm Time (Ptt) (09/07/16 10:03) Troponin I (09/07/16 10:03) Chest, Single Ap (09/07/16 10:03) Ecg Monitoring (09/07/16 10:03) Bilateral Bp Monitoring (09/07/16 10:03) Iv Access Insert/Monitor (09/07/16 10:03) Oximetry (09/07/16 10:03) Oxygen Administration (09/07/16 10:03) Aspirin Chew (Aspirin Chew) (09/07/16 10:15) Nitroglycerin 2% Oint (Nitroglycerin 2% (09/07/16 10:15) Sodium Chloride 0.9% Flush (Ns Flush) (09/07/16 10:15) Nitroglycerin Sl (Nitrostat Sl) (09/07/16 10:15) CKMB (09/07/16 10:12) CKMB% (09/07/16 10:12) Admit Order (Ed Use Only) (09/07/16 11:08) Labs Laboratory Tests Test 09/07/16 10:12 White Blood Count 7.7 TH/MM3 Red Blood Count 4.33 MIL/MM3 Hemoglobin 13.9 GM/DL Hematocrit 41.1 % Mean Corpuscular Volume 94.9 FL Mean Corpuscular Hemoglobin 32.0 PG Mean Corpuscular Hemoglobin 33.7 % Concent Red Cell Distribution Width 16.5 % Platelet Count 122 TH/MM3 Mean Platelet Volume 9.0 FL Neutrophils (%) (Auto) 78.6 % Lymphocytes (%) (Auto) 9.6 % Monocytes (%) (Auto) 10.3 % Eosinophils (%) (Auto) 1.1 % Basophils (%) (Auto) 0.4 % Neutrophils # (Auto) 6.0 TH/MM3 Lymphocytes # (Auto) 0.7 TH/MM3 Monocytes # (Auto) 0.8 TH/MM3 Eosinophils # (Auto) 0.1 TH/MM3 Basophils # (Auto) 0.0 TH/MM3 CBC Comment DIFF FINAL Differential Comment Prothrombin Time 12.3 SEC Prothromb Time International 1.1 RATIO Ratio Activated Partial 28.9 SEC Thromboplast Time Sodium Level 138 MEQ/L Potassium Level 4.0 MEQ/L Chloride Level 99 MEQ/L Carbon Dioxide Level 32.2 MEQ/L Anion Gap 7 MEQ/L Blood Urea Nitrogen 6 MG/DL Creatinine 0.89 MG/DL Estimat Glomerular Filtration 86 ML/MIN Rate Random Glucose 189 MG/DL Calcium Level 8.3 MG/DL Magnesium Level 1.4 MG/DL Total Creatine Kinase 175 U/L Creatine Kinase MB 3.0 NG/ML Troponin I 0.04 NG/ML [facility] Medical Decision Making Medical Screen Exam Complete: Yes Emergency Medical Condition: Yes Differential Diagnosis Non-STEMI versus unstable angina versus muscle skeletal pain. Narrative Course 65-year-old male history coronary artery disease, diabetes mellitus, who presents today with complaints of chest pain on and off 2 weeks. The patient has a paced rhythm. Cardiac enzymes are within normal limits. I have admitted the patient to the chest pain center. The patient is amenable. Patient does have renal insufficiency, hyperlipidemia. Diagnosis Primary Impression: Chest pain Additional Impressions: Ischemic cardiomyopathy Type 2 diabetes mellitus Francisco Kimble MD Sep 07, 2016 11:06
--- NOTE | 2016-09-07 11:45 | RADRPT ---
EXAM DATE/TIME: 09/07/2016 10:08 [place] COMPARISON: CHEST SINGLE AP, July 02, 2016, 18:28. CHEST SINGLE AP, March 26, 2016, 11:06. CHEST SINGLE AP, August 20, 2016, 16:05. INDICATIONS : Chest pain and stomach cramps today MEDICAL HISTORY : Myocardial infarction. Chronic obstructive pulmonary disease. Congestive heart failure. SURGICAL HISTORY : Coronary artery stent. Pacemaker. CABG. ENCOUNTER: Initial ACUITY: 1 day PAIN SCORE: 5/10 LOCATION: Bilateral chest FINDINGS: Heart is enlarged. Sternal wires from previous bypass are noted. Pacer is implanted on the left. There appear to be an abandoned right heart lead or a fractured right heart lead. Oblique chest x-ray would be of benefit. There is no pneumothorax or congestive failure. CONCLUSION: Abnormal pacing lead as described above. Enoc Gómez MD FACR on September 07, 2016 at 11:05 Board Certified Radiologist. This report was verified electronically.
[2016-09-07] MEDS ORDERED: GLUCAGON 1 MG/ML VIAL IM/SQ PRN (12:00)
[2016-09-07] MEDS ORDERED: DEXTROSE 50% IN WATER 50 ML VIAL(D50) IV PRN (12:00)
[2016-09-07] MEDS ORDERED: ISOSORBIDE MONONITRATE 30 MG TAB PO SCH (12:00)
[2016-09-07] MEDS ORDERED: BUMETANIDE 1 MG TAB PO SCH (12:00)
[2016-09-07] MEDS ORDERED: SOTALOL HCL 80 MG TAB PO SCH (12:00)
[2016-09-07] MEDS ORDERED: ATORVASTATIN 40 MG TAB PO SCH (12:00)
[2016-09-07] MEDS ORDERED: ACETAMINOPHEN/HYDROcodone 325 MG/7.5 MG TAB PO PRN (12:15)
[2016-09-07] MEDS ORDERED: SODIUM CHLORIDE 0.9% FLUSH 5 ML FLUSH IVF PRN (12:15)
[2016-09-07] MEDS ORDERED: ONDANSETRON HCL 4 MG/2 ML VIAL IV PRN (12:15)
[2016-09-07] MEDS ORDERED: ACETAMINOPHEN 500 MG CPLT PO PRN (12:15)
[2016-09-07 13:45] LABS: CREATINE KINASE 142 U/L (39-308)
[2016-09-07 13:57] LABS: CKMB 2.5 NG/ML (0.5-3.6)
--- NOTE | 2016-09-07 14:34 | HHI.HP ---
HPI Primary Care Physician No Primary Care Physician Chief Complaint Chest pain History of Present Illness This is a 65-year-old male with history of CAD and ischemic cardiomyopathy that presents to ED to evaluate a chest discomfort. Patient states that he has had intermittent chest discomfort for over a year. He has been evaluated for this in the past. He has a defibrillator/pacemaker. He states he saw his special class welder in the hospital about a week or so ago and was told they could not fix the problem and that he would likely have chest pains regularly. He states that he was told by his special class welder to call the office if it reoccurs. Last night he developed a chest pressure left upper chest lasts a few minutes but reoccurred a few more times concerning him say presented himself to the ED. He was short of breath. No nausea diaphoresis. He did not call his special class welder. Patient also states that he has had 2 days of diarrhea and nausea. His [id number] has similar symptoms but began 3 days ago. Review of Systems General: Patient denies fevers, chills recent, and recent travel. HEENT: Patient denies headache, sore throat, difficulty swallowing. Cardiovascular: Has the chest discomfort as mentioned above. Denies sensation of heart beating rapidly or irregularly. No syncope. Denies diaphoresis. Respiratory: Denies shortness of breath or inspirational chest discomfort. Denies coughing wheezing or hemoptysis. GI: He has had diarrhea which he describes as watery stools 8-10 times over the last 2 days. Denies blood in his stool. Denies abdominal pain. He also has had some nausea. Musculoskeletal: Patient denies joint pain or edema. Denies calf pain or edema. Neurovascular: Patient denies numbness, tingling, weakness in extremities. Denies headache. Endocrine: Denies polyuria and polydipsia. Hematologic: Denies easy bruising. Skin: Denies rash or itching. Past Family Social History Allergies: Coded Allergies: No Known Allergies (Unverified , 09/07/16) Past Medical History CAD with a CABG 20 years ago. 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 Hyperlipidemia, diabetes, ventricular tachycardia, peripheral vascular disease. Past Surgical History Coronary artery bypass grafting about 20 years ago. He has had heart catheterizations. He has had ablations. Stents in his legs. He has a AICD/ pacemaker. Hernia repair. Reported Medications Reported Meds & Active Scripts Active Isosorbide Mononitrate ER (Isosorbide Mononitrate) 30 Mg Scotty 30 Mg PO DAILY Reported Bumetanide 0.5 Mg Tab 0.5 Mg PO DAILY Aspirin 81 Mg Chew 81 Mg CHEW DAILY B-1 (Thiamine HCl) 250 Mg Tab 250 Mg PO DAILY Tresiba Flextouch Pen Inj (Insulin Degludec Inj) 300 unit/3 ML Pen 10 Units SQ DAILY Trulicity Inj (Dulaglutide Inj) 0.75 Mg/0.5 Ml Pen 0.75 Mg SQ Q7D ON TUESDAYS Sotalol (Sotalol HCl) 80 Mg Tab 80 Mg PO BID Sertraline (Sertraline HCl) 50 Mg Tab 50 Mg PO DAILY ZyrTEC Itchy Eye Opth Drops (Ketotifen Opth Drops) 0.025% Drops 1 Drop EACH EYE DAILY Atorvastatin (Atorvastatin Calcium) 40 Mg Tab 40 Mg PO DAILY D3 (Cholecalciferol) 1,000 Unit Tab 1,000 Units PO DAILY Flonase Nasal [place] (Fluticasone Nasal [place]) 50 Mcg/Act [place] 2 [place] EACH NARE DAILY Nitroglycerin SL (Nitroglycerin) 0.4 Mg Subl 0.4 Mg SL DIRECTED ONE TABLET UNDER THE TONGUE NEEDED FOR CHEST PAIN, MAY REPEAT EVERY FIVE MINUTES FOR A TOTAL OF 3 DOSES OR CALL 911 IF NO RELIEF Combivent Respimat Inh (Ipratropium-Albuterol Inh) 20-100 Longterm/Act [place]ero 2 Puff INH BID Active Ordered Medications Current Medications Medications (Trade) Dose Ordered Sig/Yakelin Route Start Time Stop Time Status Last Admin (NS Flush) 2 ml UNSCH PRN IVF 09/07/16 10:15 09/07/16 10:12 (Aspirin Chew) 81 mg DAILY CHEW 09/08/16 09:00 (Lipitor) 40 mg DAILY PO 09/07/16 12:00 09/07/16 12:17 (Bumetanide) 0.5 mg DAILY PO 09/07/16 12:00 09/07/16 12:17 (Imdur) 30 mg DAILY PO 09/07/16 12:00 09/07/16 12:17 (Zoloft) 50 mg DAILY PO 09/08/16 09:00 (Betapace) 80 mg BID PO 09/07/16 12:00 09/07/16 12:20 (D50w (Vial) Inj) 25 ml UNSCH PRN IV 09/07/16 12:00 (Glucagon Inj) 1 mg UNSCH PRN IM/SQ 09/07/16 12:00 (NS Flush) 2 ml UNSCH PRN IVF 09/07/16 12:15 (NS Flush) 2 ml BID IVF 09/07/16 21:00 (Tylenol) 500 mg Q4H PRN PO 09/07/16 12:15 ([place] 7.5-325 Mg) 1 tab Q4H PRN PO 09/07/16 12:15 (Zofran Inj) 4 mg Q6H PRN IV 09/07/16 12:15 Family History There is family history of CAD. Social History Patient quit smoking 2 years ago prior that he smoked about a pack a day for more than 40 years. He has an occasional beer. Denies illicit drugs. He lives with a sister. Physical Exam Vital Signs Vital Signs Date Time Temp Pulse Resp B/P Pulse Ox O2 Delivery O2 Flow Rate FiO2 09/07/16 14:03 78 09/07/16 14:00 92 1.00 09/07/16 13:44 99.0 82 20 122/80 92 09/07/16 12:12 97.7 78 18 123/67 98 Room Air 09/07/16 10:44 18 09/07/16 10:40 94 20 125/76 98 Nasal Cannula 3 09/07/16 10:38 97.8 98 18 115/69 97 Nasal Cannula 3 09/07/16 10:23 98 20 140/87 98 Nasal Cannula 3 09/07/16 10:05 93 22 174/87 97 Nasal Cannula 3 146/77 09/07/16 10:04 22 97 Nasal Cannula 3 09/07/16 10:04 96 Nasal Cannula 3 09/07/16 09:59 93 22 94 Nasal Cannula 3 09/07/16 09:48 98.7 98 24 162/92 95 Room Air Physical Exam GENERAL: This is a well-nourished, well-developed patient, in no apparent distress. Patient speaks in clear complete sentences. Patient is pleasant. HEENT: Head is atraumatic and normocephalic. Neck is supple without lymphadenopathy and trachea is midline. No JVD or carotid bruits. CARDIOVASCULAR: Regular rate and rhythm without murmurs, gallops, or rubs. RESPIRATORY: Well healed midline scar over the sternum from prior sternotomy. Clear to auscultation. Breath sounds equal bilaterally. No wheezes, rales, or rhonchi. Chest wall is nontender. No use of accessory muscles. GASTROINTESTINAL: Abdomen is nontender, nondistended. Abdomen soft. No obvious pulsatile mass or bruit. No CVA tenderness. Strong femoral pulses bilaterally. Normal bowel sounds in all quadrants. MUSCULOSKELETAL: Patient is moving upper and lower extremities freely. No calf tenderness or edema, no Homans sign. Strong pulses in upper and lower extremities. NEUROLOGICAL: Patient is alert and oriented. Cranial nerves 2-12 are grossly intact. No focal deficits and speech is clear. SKIN: No rash and turgor is normal. Laboratory Laboratory Tests Test 09/07/16 09/07/16 10:12 13:00 White Blood Count 7.7 Red Blood Count 4.33 Hemoglobin 13.9 Hematocrit 41.1 Mean Corpuscular Volume 94.9 Mean Corpuscular Hemoglobin 32.0 Mean Corpuscular Hemoglobin 33.7 Concent Red Cell Distribution Width 16.5 Platelet Count 122 Mean Platelet Volume 9.0 Neutrophils (%) (Auto) 78.6 Lymphocytes (%) (Auto) 9.6 Monocytes (%) (Auto) 10.3 Eosinophils (%) (Auto) 1.1 Basophils (%) (Auto) 0.4 Neutrophils # (Auto) 6.0 Lymphocytes # (Auto) 0.7 Monocytes # (Auto) 0.8 Eosinophils # (Auto) 0.1 Basophils # (Auto) 0.0 CBC Comment DIFF FINAL Differential Comment Prothrombin Time 12.3 Prothromb Time International 1.1 Ratio Activated Partial 28.9 Thromboplast Time Sodium Level 138 Potassium Level 4.0 Chloride Level 99 Carbon Dioxide Level 32.2 Anion Gap 7 Blood Urea Nitrogen 6 Creatinine 0.89 Estimat Glomerular Filtration 86 Rate Random Glucose 189 Calcium Level 8.3 Magnesium Level 1.4 Total Creatine Kinase 175 142 Creatine Kinase MB 3.0 2.5 Troponin I 0.04 0.05 Result Diagram: 09/07/16 1012 09/07/16 1012 Imaging Asked x-ray was read by radiologist as part enlarged. Sternal wires from previous bypass noted. Pacer is in place on left. There appears to be an abandoned right heart lead or a fractured right heart lead. I reviewed Dr. walters procedure note when he replaced the defibrillator and on the old lead he did cut the yolk and put a cap on the lead. Course Initial EKG is ventricularly paced. Assessment and Plan Assessment and Plan * Chest pain: Patient will continue to have serial cardiac enzymes and EKGs for ruling out purposes. He was evaluated by Dr. Franklyn Carney of cardiology in the chest pain center. I discussed this patient with his special class welder Dr. Davenport and he states that the patient is not a candidate for revascularization. Patient may be discharged if he rules out. * Ischemic cardiomyopathy: Patient will resume his medications. He has a defibrillator. He should follow back with Dr. Davenport. * Hypertension: Continue current medication. * Diabetes: Patient will be on sliding scale insulin coverage. Resume his medication discharge. He should follow diabetic diet. * CAD: Patient to follow-up with his special class welder. * Hyperlipidemia: Continue current medication. Patient is stable at this time. He is agreeable to this plan. Scooby Wade Sep 07, 2016 14:34
[2016-09-07] MEDS ORDERED: MAGNESIUM OXIDE 400 MG TAB PO ONE (15:00)
--- NOTE | 2016-09-07 15:27 | EKG ---
Date Performed: 09/07/2016 Time Performed: 09:57:01 PTAGE: 65 years EKG: ELECTRONIC VENTRICULAR PACEMAKER ABNORMAL RHYTHM ECG INTERPRETATION BASED ON A DEFAULT AGE OF 40 YEARS PREVIOUS TRACING : 08/20/2016 23.28 Since previous tracing, no significant change noted DOCTOR: Franklyn Carney Interpretating Date/Time 09/07/2016 15:26:38
--- NOTE | 2016-09-07 15:35 | EKG ---
Date Performed: 09/07/2016 Time Performed: 12:59:25 PTAGE: 65 years EKG: ELECTRONIC VENTRICULAR PACEMAKER ABNORMAL RHYTHM ECG PREVIOUS TRACING : 09/07/2016 09.57 Since previous tracing, no significant change noted DOCTOR: Franklyn Carney Interpretating Date/Time 09/07/2016 15:33:25
[2016-09-07] MEDS ORDERED: INSULIN ASPART SUPPLEMENTAL SCALE SQ SCH (16:00)
[2016-09-07 16:31] LABS: CREATINE KINASE 140 U/L (39-308)
--- NOTE | 2016-09-07 16:38 | HHI.DCPOC ---
Discharge Care Plan Diagnosis: (1) Chest pain (2) CAD (coronary artery disease) (3) Ischemic cardiomyopathy (4) Hx of CABG (5) Diabetes (6) Hyperlipidemia (7) Non-sustained ventricular tachycardia Goals to Promote Your Health * To prevent worsening of your condition and complications * To maintain your health at the optimal level Directions to Meet Your Goals Take your medications as prescribed Follow your dietary instruction Follow activity as directed Keep your appointments as scheduled Take your immunizations and boosters as scheduled If your symptoms worsen call your PCP, if no PCP go to Urgent Care Center or Emergency Room Smoking is Dangerous to Your Health. Avoid second hand smoke Call the 24-hour hour crisis hotline for domestic abuse at Scooby Wade Sep 07, 2016 16:37
[2016-09-07 16:44] LABS: CKMB 2.3 NG/ML (0.5-3.6)
[2016-09-07] MEDS ORDERED: SODIUM CHLORIDE 0.9% FLUSH 5 ML FLUSH IVF SCH (21:00)
[2016-09-08] MEDS ORDERED: SERTRALINE HCL 50 MG TAB PO SCH (09:00)
[2016-09-08] MEDS ORDERED: ASPIRIN 81 MG CHEW TAB CHEW SCH (09:00)
--- NOTE | 2016-09-08 11:19 | EKG ---
Date Performed: 09/07/2016 Time Performed: 16:13:05 PTAGE: 65 years EKG: ELECTRONIC VENTRICULAR PACEMAKER ABNORMAL RHYTHM ECG Since PREVIOUS TRACING , no significant change noted PREVIOUS TRACIN09/07/2016 12.59 DOCTOR: Enriqueta Tom Interpretating Date/Time 09/08/2016 11:19:24
== END 2016-09-07 18:05 | disposition home or self-care (01) ==
LOC: NEPE 09:46 → NEDA 11:10 → NEPHCDU 13:17
PROVIDERS: ADMIT Internal Medicine Cardiovascular Disease; ATTEND Internal Medicine Cardiovascular Disease
DX: R07.9 Chest pain, unspecified (principal); I25.5 Ischemic cardiomyopathy; I11.0 Hypertensive heart disease with heart failure; I50.9 Heart failure, unspecified; E11.9 Type 2 diabetes mellitus without complications; R06.02 Shortness of breath; R19.7 Diarrhea, unspecified; R11.0 Nausea; R10.9 Unspecified abdominal pain; R94.31 Abnormal electrocardiogram [ECG] [EKG]; R61 Generalized hyperhidrosis; I25.10 Atherosclerotic heart disease of native coronary artery without angina pectoris; E78.5 Hyperlipidemia, unspecified; E78.00 Pure hypercholesterolemia, unspecified; I73.9 Peripheral vascular disease, unspecified; I25.2 Old myocardial infarction; I48.91 Unspecified atrial fibrillation; J44.9 Chronic obstructive pulmonary disease, unspecified; K74.60 Unspecified cirrhosis of liver; F41.9 Anxiety disorder, unspecified; F32.9 Major depressive disorder, single episode, unspecified; G47.30 Sleep apnea, unspecified; N28.9 Disorder of kidney and ureter, unspecified; Z95.5 Presence of coronary angioplasty implant and graft; Z95.1 Presence of aortocoronary bypass graft; Z95.810 Presence of automatic (implantable) cardiac defibrillator; Z87.891 Personal history of nicotine dependence; Z79.899 Other long term (current) drug therapy; Z79.82 Long term (current) use of aspirin; Z79.4 Long term (current) use of insulin
CPT/HCPCS: 71010; 80048; 82550; 82552; 82948; 83735; 84484; 85025; 85610; 85730; 93005; 99285; G0378

== ENCOUNTER 2016-10-20 13:01 | Inpatient (IN) | payer OTHER, MEDICARE ==
[~2016-10-20] VITALS: Ht 167.6 cm; Wt 89.8 kg
[2016-10-20 13:13] VITALS: BP 113/76; PULSE 75; RESP 18; TEMP 98.8; O2SAT 95
--- NOTE | 2016-10-20 13:27 | PD ---
HPI Chief Complaint: CHEST TIGHTNESS Time Seen by Provider: 13:11 Travel History International Travel<30 days: No Contact w/Intl Traveler<30days: No Traveled to known affect area: No History of Present Illness HPI PATIENT C/O CHEST TIGHTNESS, PRESSURE LIKE, 6/10, NONRAD, SENSATION THAT DOESN' T SEEM TO HAVE EXCACERBATING OR ALLEVIATING FACTORS AT THIS TIME....ORIGINAL ONSET 2 DAYS AGO, BUT OCCURRING INTERMITTENTLY AND SOMETIMES ASSOCIATED WITH NAUSEA.... PATIENT HAS H/O CABBG, PACEMAKER, DM, HTN , AND CHOL....PCP IS I[facility] AND CARDIOLOGY IS DR RICHEY?[facility] Past Medical History Hx Anticoagulant Therapy: Yes (ASA ) Arthritis: No Asthma: Yes Atrial Fibrillation: Yes Autoimmune Disease: No Blood Disorders: No Anxiety: Yes Depression: Yes Heart Rhythm Problems: Yes Cancer: No Cardiac Catheterization: Yes Cardiovascular Problems: Yes High Cholesterol: Yes Chemotherapy: No Chest Pain: Yes Congestive Heart Failure: Yes Cirrhosis: Yes COPD: Yes Cerebrovascular Accident: No Diabetes: Yes Diminished Hearing: No Endocrine: Yes (Diabetes Mellitus) Gastrointestinal Disorders: Yes (ASCITES) GERD: No Glaucoma: No Genitourinary: Yes (mary) Headaches: Yes Hepatitis: No Hiatal Hernia: No Heparin Induced Thrombocytopen: No Hypertension: Yes Immune Disorder: No Implanted Vascular Access Dvce: Yes Kidney Stones: No Musculoskeletal: No Neurologic: Yes (tremors) Psychiatric: No Reproductive: No Respiratory: Yes (COPD) Integumentary: No Immunizations Current: No Migraines: No Pneumonia: Yes Radiation Therapy: No Renal Failure: No Seizures: No Sickle Cell Disease: No Sleep Apnea: Yes Thyroid Disease: No Ulcer: No Past Surgical History Abdominal Surgery: Yes (hernia repair) AICD: Yes ([place]/PACER) Arteriovenous Shunt: No Body Medical Devices: STENTS TAYA LEGS & HEART, DEFIBRILLATOR Coronary Artery Bypass Graft: Yes Coronary Stent: Yes (X3) Ear Surgery: No Endocrine Surgery: No Eye Surgery: No Genitourinary Surgery: No Gynecologic Surgery: No Insulin Pump: No Joint Replacement: No Neurologic Surgery: No Oral Surgery: No Pacemaker: Yes (AICD) Other Surgery: Yes (CABG, TAYA L.E. STENTS, AICD) Social History Alcohol Use: No (ocassionally) Tobacco Use: No (QUIT A YEAR AGO ) Substance Use: No Allergies-Medications (Allergen,Severity, Reaction): Coded Allergies: No Known Allergies (Unverified , 09/07/16) Reported Meds & Prescriptions Reported Meds & Active Scripts Active Isosorbide Mononitrate ER (Isosorbide Mononitrate) 30 Mg Scotty 30 Mg PO DAILY Reported Bumetanide 0.5 Mg Tab 0.5 Mg PO DAILY Aspirin 81 Mg Chew 81 Mg CHEW DAILY B-1 (Thiamine HCl) 250 Mg Tab 250 Mg PO DAILY Tresiba Flextouch Pen Inj (Insulin Degludec Inj) 300 unit/3 ML Pen 10 Units SQ DAILY Trulicity Inj (Dulaglutide Inj) 0.75 Mg/0.5 Ml Pen 0.75 Mg SQ Q7D ON TUESDAYS Sotalol (Sotalol HCl) 80 Mg Tab 80 Mg PO BID Sertraline (Sertraline HCl) 50 Mg Tab 50 Mg PO DAILY ZyrTEC Itchy Eye Opth Drops (Ketotifen Opth Drops) 0.025% Drops 1 Drop EACH EYE DAILY Atorvastatin (Atorvastatin Calcium) 40 Mg Tab 40 Mg PO DAILY D3 (Cholecalciferol) 1,000 Unit Tab 1,000 Units PO DAILY Flonase Nasal [place] (Fluticasone Nasal [place]) 50 Mcg/Act [place] 2 [place] EACH NARE DAILY Nitroglycerin SL (Nitroglycerin) 0.4 Mg Subl 0.4 Mg SL DIRECTED ONE TABLET UNDER THE TONGUE NEEDED FOR CHEST PAIN, MAY REPEAT EVERY FIVE MINUTES FOR A TOTAL OF 3 DOSES OR CALL 911 IF NO RELIEF Combivent Respimat Inh (Ipratropium-Albuterol Inh) 20-100 Jail/Act Aero 2 Puff INH BID Review of Systems Except as stated in HPI: all other systems reviewed are Neg Cardiovascular: Positive: Chest Pain or Discomfort Gastrointestinal: Positive: Nausea Physical Exam Narrative GENERAL: SKIN: Warm and dry. HEAD: Atraumatic. Normocephalic. EYES: Pupils equal and round. No scleral icterus. No injection or drainage. ENT: No nasal bleeding or discharge. Mucous membranes pink and moist. NECK: Trachea midline. No JVD. CARDIOVASCULAR: Regular rate and rhythm. 1+PERIPHERAL EDEMA, RESPIRATORY: No accessory muscle use. Clear to auscultation. Breath sounds equal bilaterally. GASTROINTESTINAL: Abdomen soft, non-tender, nondistended. Hepatic and splenic margins not palpable. MUSCULOSKELETAL: Extremities without clubbing, cyanosis, or edema. No obvious deformities. NEUROLOGICAL: Awake and alert. No obvious cranial nerve deficits. Motor grossly within normal limits. Five out of 5 muscle strength in the arms and legs. Normal speech. PSYCHIATRIC: Appropriate mood and affect; insight and judgment normal. Data Data Last Documented VS Vital Signs Date Time Temp Pulse Resp B/P Pulse Ox O2 Delivery O2 Flow Rate FiO2 10/20/16 15:30 78 20 125/81 95 Nasal Cannula 2 10/20/16 13:32 98.8 Orders Electrocardiogram (10/20/16 13:12) Complete Blood Count With Diff (10/20/16 13:12) Comprehensive Metabolic Panel (10/20/16 13:12) Ckmb (Isoenzyme) Profile (10/20/16 13:12) Troponin I (10/20/16 13:12) B-Type Natriuretic Peptide (10/20/16 13:12) Prothrombin Time / Inr (Pt) (10/20/16 13:12) Act Partial Throm Time (Ptt) (10/20/16 13:12) Lipase (10/20/16 13:12) Urinalysis - C+S If Indicated (10/20/16 13:12) Thyroid Stimulating Hormone (10/20/16 13:12) Chest, Single Ap (10/20/16 13:12) Iv Access Insert/Monitor (10/20/16 13:12) Ecg Monitoring (10/20/16 13:12) Oximetry (10/20/16 13:12) Aspirin Chew (Aspirin Chew) (10/20/16 14:45) Nitroglycerin 2% Oint (Nitroglycerin 2% (10/20/16 14:45) CKMB (10/20/16 13:35) CKMB% (10/20/16 13:35) Sodium Chlor 0.9% 250 Ml Inj (Ns 250 Ml (10/20/16 15:30) Furosemide Inj (Lasix Inj) (10/20/16 15:30) Admit Order (Ed Use Only) (10/20/16 15:36) Labs Laboratory Tests Test 10/20/16 10/20/16 13:35 15:25 White Blood Count 8.5 TH/MM3 Red Blood Count 3.81 MIL/MM3 Hemoglobin 12.1 GM/DL Hematocrit 36.7 % Mean Corpuscular Volume 96.3 FL Mean Corpuscular Hemoglobin 31.7 PG Mean Corpuscular Hemoglobin 32.9 % Concent Red Cell Distribution Width 16.8 % Platelet Count 159 TH/MM3 Mean Platelet Volume 9.1 FL Neutrophils (%) (Auto) 70.9 % Lymphocytes (%) (Auto) 14.8 % Monocytes (%) (Auto) 11.1 % Eosinophils (%) (Auto) 2.4 % Basophils (%) (Auto) 0.8 % Neutrophils # (Auto) 6.0 TH/MM3 Lymphocytes # (Auto) 1.3 TH/MM3 Monocytes # (Auto) 0.9 TH/MM3 Eosinophils # (Auto) 0.2 TH/MM3 Basophils # (Auto) 0.1 TH/MM3 CBC Comment DIFF FINAL Differential Comment Prothrombin Time 12.9 SEC Prothromb Time International 1.2 RATIO Ratio Activated Partial 31.3 SEC Thromboplast Time Sodium Level 120 MEQ/L Potassium Level 3.8 MEQ/L Chloride Level 83 MEQ/L Carbon Dioxide Level 23.1 MEQ/L Anion Gap 14 MEQ/L Blood Urea Nitrogen 8 MG/DL Creatinine 0.76 MG/DL Estimat Glomerular Filtration 104 ML/MIN Rate Random Glucose 115 MG/DL Calcium Level 8.1 MG/DL Total Bilirubin 1.5 MG/DL Aspartate Amino Transf 115 U/L (AST/SGOT) Alanine Aminotransferase 68 U/L (ALT/SGPT) Alkaline Phosphatase 122 U/L Total Creatine Kinase 139 U/L Creatine Kinase MB 4.4 NG/ML Troponin I 0.05 NG/ML B-Type Natriuretic Peptide 912 PG/ML Total Protein 8.0 GM/DL Albumin 3.1 GM/DL Lipase 331 U/L Thyroid Stimulating Hormone 5.360 uIU/ML 3rd Gen Urine Color YELLOW Urine Turbidity CLEAR Urine pH 5.5 Urine Specific [place] 1.014 Urine Protein 100 mg/dL Urine Glucose (UA) NEG mg/dL Urine Ketones NEG mg/dL Urine Occult Blood NEG Urine Nitrite NEG Urine Bilirubin NEG Urine Urobilinogen LESS THAN 2.0 MG/DL Urine Leukocyte Esterase NEG Urine RBC LESS THAN 1 /hpf Urine WBC 1 /hpf Urine Squamous Epithelial 1 /hpf Cells Urine Hyaline Casts 22 /lpf Urine Mucus FEW /lpf Microscopic Urinalysis Comment CULT NOT INDICATED Urine Osmolality 312 MOSM/KG Urine Random Sodium LESS THAN 5 MEQ/L MDM Medical Decision Making Medical Screen Exam Complete: Yes Emergency Medical Condition: Yes Medical Record Reviewed: Yes Interpretation(s) PACED RHYTHM 70'S, WITHOUT CONCORDANCE Differential Diagnosis NONSTEMI V STEMI V PNA V PTX Narrative Course PATIENT EVALUATED AND REMAINED ALERT AND ORIENTED DURING OBSERVATION PERIOD. DURING EVALUATION PATIENT WAS FOUND TO HAVE ABNL TSH WHICH SUGGESTS HYPOTHYROIDISM, CXR DID NOT REVEAL PULM EDEMA/PTX NOR CONSOLIDATION OF PNA. FIRST SET OF CARDIAC ENZYMES NEGATIVE BUT PATIENT HAS H/O CARDIOMYOPATHY AND CHF SO HYPONATREMIA HAD TO BE ADDRESSED CAREFULLY NOT ONLY TO AVOID CEREBELLOPONTINE MYELINOSIS BUT FLUID OVERLOAD. Critical Care Narrative CRITICAL CARE NOTE: With evaluation of the patient, labs, EKG, receipt of radiologic studies, administration of medications, reevaluation the patient and discussion of the patient with the admitting physicians, the total critical care time was [45] minutes. Time to perform other separately billable procedures was not included in the critical care time. Diagnosis Primary Impression: CHEST PAIN R/O [place] Additional Impressions: HYPONATREMIA SUSPECTED HYPOTHYROIDISM Admitting Information Admitting Physician Requests: Observation Kwesi Mei MD Oct 20, 2016 13:27
[2016-10-20 13:32] VITALS: BP 113/76; PULSE 74; RESP 20; TEMP 98.8; O2SAT 96
--- NOTE | 2016-10-20 13:40 | RADRPT ---
EXAM DATE/TIME: 10/20/2016 13:13 [facility] COMPARISON: CHEST SINGLE AP, September 07, 2016, 10:08. INDICATIONS : Short of breath. MEDICAL HISTORY : Chronic obstructive pulmonary disease. Congestive heart failure. asthma SURGICAL HISTORY : CABG. Pacemaker. ENCOUNTER: Initial ACUITY: 1 day PAIN SCORE: 0/10 LOCATION: Bilateral chest FINDINGS: A single portable frontal view the chest shows moderate cardiomegaly. Pulmonary vessels are prominent but remain distinct. No infiltrate or effusion. Pacing device overlies the left chest. Median sterno nellie wires noted. CONCLUSION: 1. Cardiomegaly with mild pulmonary vascular engorgement but no interstitial or intra-alveolar pulmon radha edema observed. Gigi Farias Jr., MD on October 20, 2016 at 13:37 Board Certified Radiologist. This report was verified electronically.
[2016-10-20 14:17] LABS: BASOPHIL # 0.1 TH/MM3 (0-0.2); BASOPHIL % 0.8 % (0.0-2.0); EOSINOPHIL # 0.2 TH/MM3 (0-0.4); EOSINOPHIL % 2.4 % (0.0-4.0); HEMATOCRIT 36.7 % (39.0-51.0); HEMO FLAGS DIFF FINAL; LYMPH % 14.8 % (9.0-44.0); LYMPHOCYTE # 1.3 TH/MM3 (1.0-4.8); MEAN CELL VOLUME 96.3 FL (80.0-100.0); MEAN CORPUSCULAR HEMOGLOBIN 31.7 PG (27.0-34.0); MEAN CORPUSCULAR HGB CONC 32.9 % (32.0-36.0); MONO % 11.1 % (0.0-8.0); NEUT % 70.9 % (16.0-70.0); PLATELET COUNT 159 TH/MM3 (150-450); RED BLOOD COUNT 3.81 MIL/MM3 (4.50-5.90); RED CELL DISTRIBUTION WIDTH 16.8 % (11.6-17.2); WHITE BLOOD COUNT 8.5 TH/MM3 (4.0-11.0)
[2016-10-20 14:21] LABS: APTT (PATIENT) 31.3 SEC (24.3-30.1); INTERNATIONAL NORMALIZED RATIO 1.2 RATIO; PROTHROMBIN TIME - PATIENT 12.9 SEC (9.8-11.6)
[2016-10-20 14:28] LABS: ALT (GPT) 68 U/L (12-78); ANION GAP 14 MEQ/L (5-15); AST (GOT) 115 U/L (15-37); BICARBONATE 23.1 MEQ/L (21.0-32.0); BLOOD UREA NITROGEN 8 MG/DL (7-18); CHLORIDE 83 MEQ/L (98-107); GLOMERULAR FILTRATION RATE 104 ML/MIN (>89); POTASSIUM 3.8 MEQ/L (3.5-5.1)
[2016-10-20 14:38] LABS: ALKALINE PHOSPHATASE 122 U/L (45-117); CREATINE KINASE 139 U/L (39-308); TOTAL BILIRUBIN ADULT 1.5 MG/DL (0.2-1.0)
[2016-10-20] MEDS ORDERED: ASPIRIN 81 MG CHEW TAB PO ONE (14:45)
[2016-10-20] MEDS ORDERED: NITROGLYCERIN 2% OINT 1 GM PACKET TOP ONE (14:45)
[2016-10-20 14:53] LABS: SODIUM (NA) 120 MEQ/L (136-145)
[2016-10-20 15:22] LABS: CKMB 4.4 NG/ML (0.5-3.6)
[2016-10-20 15:30] VITALS: BP 125/81; PULSE 78; RESP 20; O2SAT 95
[2016-10-20] MEDS ORDERED: SODIUM CHLOR 0.9% 250 ML INJ 250 ML IV ONE (15:30)
[2016-10-20] MEDS ORDERED: FUROSEMIDE 20 MG/2 ML VIAL IV PUSH ONE (15:30)
[2016-10-20 16:04] LABS: BLOOD, URINE NEG (NEG); COMMENT (UR) CULT NOT INDICATED; CULTURE IF INDICATED CULT NOT INDICATED; GLUCOSE,URINE NEG (NEG); HYALINE CAST, URINE 22 /lpf (RARE); KETONE, URINE NEG (NEG); MUCUS URINE FEW /lpf (OCC); NITRITE,URINE NEG (NEG); PH, URINE 5.5 (5.0-8.5); SQUAMOUS EPITHELIAL CELL URINE 1 /hpf (0-5); URINE COLOR YELLOW (YELLW/STRAW)
[2016-10-20] MEDS ORDERED: BISACODYL 10 MG SUPP RECTAL PRN (16:15)
[2016-10-20] MEDS ORDERED: SENNOSIDES 8.6 MG TAB PO PRN (16:15)
[2016-10-20] MEDS ORDERED: SODIUM CHLORIDE 0.9% FLUSH 10 ML FLUSH IV FLUSH PRN ×2 (16:15)
[2016-10-20] MEDS ORDERED: MAGNESIUM HYDROXIDE SUSP 30 ML CUP PO PRN (16:15)
[2016-10-20] MEDS ORDERED: LACTULOSE SYRUP 20 GM/30 ML CUP PO PRN (16:15)
[2016-10-20] MEDS ORDERED: NALOXONE HCL 0.4 MG/ML AMP IV PRN (16:15)
--- NOTE | 2016-10-20 16:49 | HHI.HP ---
HPI Service [facility] Primary Care Physician Venice Mota MD Admission Diagnosis CP R/O [place], HYPONATREMIA, POSSIBLE HYPOTHYROID Diagnoses: Chief Complaint: chest tightness Travel History International Travel<30 Days: No Contact w/Intl Traveler <30 Da: No Traveled to Known Affected Are: No History of Present Illness Patient is a 65-year-old white male being admitted for chest pain and chest tightness. Patient will resume his usual state of health until 3 days ago when he began experiencing an insidious onset of substernal chest pain. Pain was intermittent in its nature and fluctuating in intensity up to 7 out of 10 at worst. Pain was initially very tolerable in the beginning days but became more frequent and more intense, reaching a 7 out of 10 today shortly after lunch which prompted the patient to call the ambulance. Describes the pain as sharp, was relieved by taking nitroglycerin at home today, and further relieved after being given nitroglycerin the ED again. The past few days he also reports having some intermittent nausea without vomiting, did have at least 2 watery bowel movements without any blood that have now resolved with some OTC antidiarrheals. Does report some mild abdominal soreness. Sisters also present with him and states that he appeared somewhat mentally slower than usual but not confused, now is better. Patient reports that he's felt weaker overall in the past few days but denies any fevers or chills. He denies any worsening lower extremity edema, or worsening of his chronic dry cough. Reports being compliant with his medications, especially with his baby aspirin, atorvastatin, and his bumex. Had his entresto discontinued on recent hospitalization due to hypotension. Abnormal labs in the ED showed a sodium of 120 and elevated AST and ALK phos on 100s. H&H was unremarkable. EKG shows no new acute changes, patient has defibrillator in place. Was recently seen by cardiology last month, deemed not to be a revascularization candidate. Ischemic cardiomyopathy with EF 25% on last MPI. Hx of ETOH hepatitis. Pt states he drinks "plenty of water" daily along with 2 beers daily. Review of Systems Constitutional: DENIES: Diaphoretic episodes, Fatigue, Fever, Weight gain, Weight loss, Chills, Dizziness, Change in appetite, Night Sweats Endocrine: DENIES: Heat/cold intolerance, Polydipsia, Polyuria, Polyphagia Eyes: DENIES: Blurred vision, Diplopia, Eye inflammation, Eye pain, Vision loss , Photosensitivity, Double Vision Ears, nose, mouth, throat: DENIES: Tinnitus, Hearing loss, Vertigo, Nasal discharge, Oral lesions, Throat pain, Hoarseness, Ear Pain, Running Nose, Epistaxis, Sinus Pain, Toothache, Odynophagia Gastrointestinal: COMPLAINS OF: Abdominal pain, Diarrhea, Nausea, DENIES: Black stools, Bloody stools, Constipation, Vomiting, Difficulty Swallowing, Anorexia Genitourinary: DENIES: Sexual dysfunction, Urinary frequency, Urinary incontinence, Urgency, Hematuria, Dysuria, Nocturia, Penile Discharge, Testicular Pain, Testicular Swelling Musculoskeletal: DENIES: Joint pain, Muscle aches, Stiffness, Joint Swelling, Back pain, Neck pain Hematologic/lymphatic: COMPLAINS OF: Bruising, DENIES: Lymphadenopathy Immunologic/allergic: DENIES: Eczema, Urticaria resp and cardiovascular: see HPI Past Family Social History Past Medical History CAD with a CABG 20 years ago. 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 Hyperlipidemia, diabetes, ventricular tachycardia, peripheral vascular disease Past Surgical History Coronary artery bypass grafting about 20 years ago. He has had heart catheterizations. He has had ablations. Stents in his legs. He has a AICD/ pacemaker. Hernia repair. Reported Medications Isosorbide Mononitrate ER (Isosorbide Mononitrate) 30 Mg Scotty 30 Mg PO DAILY Bumetanide 0.5 Mg Tab 0.5 Mg PO DAILY Aspirin 81 Mg Chew 81 Mg CHEW DAILY B-1 (Thiamine HCl) 250 Mg Tab 250 Mg PO DAILY Tresiba Flextouch Pen Inj (Insulin Degludec Inj) 300 unit/3 ML Pen 10 Units SQ DAILY Trulicity Inj (Dulaglutide Inj) 0.75 Mg/0.5 Ml Pen 0.75 Mg SQ Q7D ON TUESDAYS Sotalol (Sotalol HCl) 80 Mg Tab 80 Mg PO BID Sertraline (Sertraline HCl) 50 Mg Tab 50 Mg PO DAILY ZyrTEC Itchy Eye Opth Drops (Ketotifen Opth Drops) 0.025% Drops 1 Drop EACH EYE DAILY Atorvastatin (Atorvastatin Calcium) 40 Mg Tab 40 Mg PO DAILY D3 (Cholecalciferol) 1,000 Unit Tab 1,000 Units PO DAILY Flonase Nasal [place] (Fluticasone Nasal [place]) 50 Mcg/Act [place] 2 [place] EACH NARE DAILY Nitroglycerin SL (Nitroglycerin) 0.4 Mg Subl 0.4 Mg SL DIRECTED ONE TABLET UNDER THE TONGUE NEEDED FOR CHEST PAIN, MAY REPEAT EVERY FIVE MINUTES FOR A TOTAL OF 3 DOSES OR CALL 911 IF NO RELIEF Combivent Respimat Inh (Ipratropium-Albuterol Inh) 20-100 Senior Living/Act Aero 2 Puff INH BID Allergies: Coded Allergies: No Known Allergies (Unverified , 09/07/16) Active Ordered Medications Inpatient Medications Aspirin (Aspirin Chew) 162 mg ONCE ONCE PO Last administered on 10/20/16 15: 29; Start 10/20/16 at 14:45; Stop 10/20/16 at 14:46; Status DC Aspirin (Aspirin) 325 mg DAILY PO ; Start 10/21/16 at 09:00; Status UNV Atorvastatin Calcium (Lipitor) 40 mg DAILY PO ; Start 10/21/16 at 09:00; Status UNV Bisacodyl (Dulcolax Supp) 10 mg DAILY PRN RECTAL SEVERE CONSITIPATION; Start at 16:15 Cholecalciferol (Vitamin D3) 1,000 units DAILY PO ; Start 10/21/16 at 09:00; Status UNV Dextrose (D50w (Vial) Inj) 50 ml UNSCH PRN IV HYPOGLYCEMIA-SEE COMMENTS; Start 10/20/16 at 17:30; Status UNV Enoxaparin Sodium (Lovenox Inj) 40 mg Q24H SQ ; Start 10/20/16 at 17:00 Furosemide (Lasix Inj) 20 mg ONCE ONCE IV PUSH Last administered on 10/20/16 15:30; Start 10/20/16 at 15:30; Stop 10/20/16 at 15:31; Status DC Glucagon (Glucagon Inj) 1 mg UNSCH PRN OTHER HYPOGLYCEMIA-SEE COMMENTS; Start 10/20/16 at 17:30; Status UNV Insulin Aspart (NovoLOG SUPPLEMENTAL SCALE) 1 ACHS SLIDING SCALE SQ ; Start at 21:00; Status UNV Insulin Detemir (Levemir Inj) 10 units HS SQ ; Start 10/20/16 at 21:00; Status UNV Lactulose (Lactulose Liq) 30 ml DAILY PRN PO SEVERE CONSITIPATION; Start at 16:15 Magnesium Hydroxide (Milk Of Magnesia Liq) 30 ml Q12H PRN PO MILD - MODERATE CONSTIPATION; Start 10/20/16 at 16:15 Naloxone HCl (Narcan Inj) 0.4 mg UNSCH PRN IV SEE LABEL COMMENTS; Start at 16:15 Nitroglycerin 1 inch 1 inch ONCE ONCE TOP Last administered on 10/20/16 15:29 ; Start 10/20/16 at 14:45; Stop 10/20/16 at 14:46; Status DC Non-Formulary Medication 250 mg DAILY PO NS; Start 10/21/16 at 09:00; Status UNV Senna/Docusate Sodium (Caty-Colace) 1 tab BID PO ; Start 10/20/16 at 21:00 Sennosides (Senokot) 17.2 mg Q12H PRN PO MODERATE - SEVERE CONSTIPATION; Start 10/20/16 at 16:15 Sertraline HCl (Zoloft) 50 mg DAILY PO ; Start 10/21/16 at 09:00; Stop 10/21/16 at 09:00; Status DC Sodium Chloride (NS 250 ml Inj) 250 ml @ 125 mls/hr BOLUS ONCE IV Last administered on 10/20/16 15:29; Start 10/20/16 at 15:30; Stop 10/20/16 at 17:29 ; Status DC Sodium Chloride (NS Flush) 2 ml BID IV FLUSH ; Start 10/20/16 at 21:00 Sotalol HCl (Betapace) 80 mg BID PO ; Start 10/20/16 at 21:00; Status UNV Family History Fhx of CAD Social History Patient quit smoking 2 years ago. 40 PPD yrs. He drinks 2 beers daily. Denies illicit drugs. He lives with a sister. Physical Exam Vital Signs Vital Signs Date Time Temp Pulse Resp B/P Pulse Ox O2 Delivery O2 Flow Rate FiO2 10/20/16 15:30 78 20 125/81 95 Nasal Cannula 2 10/20/16 13:32 73 20 96 Nasal Cannula 10/20/16 13:32 96 Nasal Cannula 2 10/20/16 13:32 98.8 74 20 113/76 96 Nasal Cannula 2 10/20/16 13:13 98.8 75 18 113/76 95 Physical Exam GENERAL: This is a well-nourished, well-developed patient, in no apparent distress. SKIN: Has multiple excoriations on all 4 extremities likely due to scratching, mild bruising HEAD: Atraumatic. Normocephalic. No temporal or scalp tenderness. EYES: Pupils equal round and reactive. Extraocular motions intact. No scleral icterus. No injection or drainage. ENT: Nose without bleeding, purulent drainage or septal hematoma. NECK: Trachea midline. No JVD or lymphadenopathy. CARDIOVASCULAR: Regular rate and rhythm without murmurs, gallops, or rubs. RESPIRATORY: Clear to auscultation. Breath sounds equal bilaterally. No wheezes , rales, or rhonchi. GASTROINTESTINAL: Abdomen soft, mild-mod tenderness to palpation in epigastrium , mildmoderate diffuse abdominal distention with no ascitic wave, nondistended , unable to appreciate any organomegaly MUSCULOSKELETAL: Extremities without clubbing, cyanosis, or edema. No joint tenderness, effusion, or edema noted. No calf tenderness. NEUROLOGICAL: Awake and alert. Cranial nerves II through XII intact. Motor and sensory grossly within normal limits. Five out of 5 muscle strength in all muscle groups. Normal speech. Laboratory Laboratory Tests Test 10/20/16 10/20/16 13:35 15:25 White Blood Count 8.5 Red Blood Count 3.81 Hemoglobin 12.1 Hematocrit 36.7 Mean Corpuscular Volume 96.3 Mean Corpuscular Hemoglobin 31.7 Mean Corpuscular Hemoglobin 32.9 Concent Red Cell Distribution Width 16.8 Platelet Count 159 Mean Platelet Volume 9.1 Neutrophils (%) (Auto) 70.9 Lymphocytes (%) (Auto) 14.8 Monocytes (%) (Auto) 11.1 Eosinophils (%) (Auto) 2.4 Basophils (%) (Auto) 0.8 Neutrophils # (Auto) 6.0 Lymphocytes # (Auto) 1.3 Monocytes # (Auto) 0.9 Eosinophils # (Auto) 0.2 Basophils # (Auto) 0.1 CBC Comment DIFF FINAL Differential Comment Prothrombin Time 12.9 Prothromb Time International 1.2 Ratio Activated Partial 31.3 Thromboplast Time Sodium Level 120 Potassium Level 3.8 Chloride Level 83 Carbon Dioxide Level 23.1 Anion Gap 14 Blood Urea Nitrogen 8 Creatinine 0.76 Estimat Glomerular Filtration 104 Rate Random Glucose 115 Calcium Level 8.1 Total Bilirubin 1.5 Aspartate Amino Transf 115 (AST/SGOT) Alanine Aminotransferase 68 (ALT/SGPT) Alkaline Phosphatase 122 Total Creatine Kinase 139 Creatine Kinase MB 4.4 Troponin I 0.05 B-Type Natriuretic Peptide 912 Total Protein 8.0 Albumin 3.1 Lipase 331 Thyroid Stimulating Hormone 5.360 3rd Gen Urine Color YELLOW Urine Turbidity CLEAR Urine pH 5.5 Urine Specific [place] 1.014 Urine Protein 100 Urine Glucose (UA) NEG Urine Ketones NEG Urine Occult Blood NEG Urine Nitrite NEG Urine Bilirubin NEG Urine Urobilinogen LESS THAN 2.0 Urine Leukocyte Esterase NEG Urine RBC LESS THAN 1 Urine WBC 1 Urine Squamous Epithelial 1 Cells Urine Hyaline Casts 22 Urine Mucus FEW Microscopic Urinalysis Comment CULT NOT INDICATED Result Diagram: 10/20/16 1335 10/20/16 1335 Imaging Last 72 hours Impressions Chest X-Ray 10/20/16 1312 Signed Impressions: Service Date/Time: Thursday, October 20, 2016 13:13 - CONCLUSION: 1. Cardiomegaly with mild pulmonary vascular engorgement but no interstitial or intra-alveolar pulmonary edema observed. Gigi Farias Jr., MD Last Impressions Chest X-Ray 10/20/16 1312 Signed Impressions: Service Date/Time: Thursday, October 20, 2016 13:13 - CONCLUSION: 1. Cardiomegaly with mild pulmonary vascular engorgement but no interstitial or intra-alveolar pulmonary edema observed. Gigi Farias Jr., MD Assessment and Plan Problem List: (1) Chest pain ICD Code: R07.9 Status: Acute (2) CAD (coronary artery disease) ICD Code: I25.10 Status: Chronic (3) COPD (chronic obstructive pulmonary disease) ICD Code: J44.9 Status: Chronic (4) Ischemic cardiomyopathy ICD Code: I25.5 Status: Chronic (5) Hx of CABG ICD Code: Z95.1 Status: Chronic (6) Acute hyponatremia ICD Code: E87.1 Status: Acute (7) Systolic heart failure, chronic ICD Code: I50.22 Status: Chronic (8) Type 2 diabetes mellitus with hyperglycemia ICD Code: E11.65 Status: Chronic (9) Alcoholic cirrhosis ICD Code: K70.30 Status: Chronic Assessment and Plan A/P: 65-year-old no be admitted for chest pain rule out. Associated w/ mild GI upset and hyponatremia. Clinically stable upon admission, currently CP free. Not a revascularization candidate based upon most recent cardiac evaluation. Acute chest pain - Initial troponin negative, Trend troponins x2 more, EKG with no new changes. On telemetry. Will consider cards consult given end stage heart dx. CHFrEF 2/2 ischemic cardiomyopathy EF 25% + HTN (controlled)- Continue home atorvastatin, sotalol. Increasing to 325 mg aspirin daily. Holding home BiDil since patient has received nitroglycerin today. Holding diuretics for now given low-sodium. May consider restarting on Atlace 1.25 mg per card's most recent recommendations on previous encounter once Na level stabilizes. Acute mild-mod hyponatremia - acute in nature but asymptomatic currently. Etiology of ETOH cirrhosis w/ beer potomania vs CHF vs med s/e We'll monitor conservatively, fluid restrict, f/u Na in am and urine studies. Holding home sertraline, bumex for now given SIADH/hyponatremia fx. Acute on chronic Elevated liver enzymes 2/2 to ETOH hepatitis/cirrhosis, follow-up CMP in a.m. scheduled low dose Librium Uncontrolled Diabetes A1c 8.5% switching from home tresiba to Levemir plus LDSS w/ accuchecks COPD - continue home Combivent Elevated TSH - suspect transient illness, repeat if no improvement in overall condition in next 24 hrs, to be followed up as outpt otherwise Code Status full code Discussed Condition With patient. Physician Certification 2 Midnight Certification Type: Admission for Inpatient Services Order for Inpatient Services The services are ordered in accordance with Medicare regulations or non- Medicare payer requirements, as applicable. In the case of services not specified as inpatient-only, they are appropriately provided as inpatient services in accordance with the 2-midnight benchmark. Estimated LOS (days): 3 3 days is the estimated time the patient will need to remain in the hospital, assuming treatment plan goals are met and no additional complications. Post-Hospital Plan: Home Hiram Reyes MD Oct 20, 2016 16:49
--- NOTE | 2016-10-20 17:04 | EKG ---
Date Performed: 10/20/2016 Time Performed: 13:09:48 PTAGE: 65 years EKG: ELECTRONIC VENTRICULAR PACEMAKER ABNORMAL RHYTHM ECG PREVIOUS TRACING : 09/07/2016 16.13 Compared to prior tracing no significant change DOCTOR: Maryjane Souza Interpretating Date/Time 10/20/2016 17:04:29
[2016-10-20] MEDS ORDERED: DEXTROSE 50% IN WATER 50 ML VIAL(D50) IV PRN (17:30)
[2016-10-20] MEDS ORDERED: GLUCAGON 1 MG/ML VIAL OTHER PRN (17:30)
[2016-10-20] MEDS ORDERED: PILL SPLITTER OTHER PRN (18:45)
[2016-10-20 20:00] VITALS: BP 123/67; PULSE 64; RESP 16; TEMP 97.2; O2SAT 95
[2016-10-20] MEDS: ENOXAPARIN SODIUM 40 MG/0.4 ML SYRINGE SQ SCH (20:12)
[2016-10-20] MEDS ORDERED: PT:COMBIVENT RESPIMAT INH SCH (21:00)
[2016-10-20] MEDS ORDERED: NON-FORMULARY DRUG (Ipratropium-Albuterol Inh (Combivent Respimat Inh) 2 PUFF) INH SCH (21:00)
[2016-10-20] MEDS ORDERED: SODIUM CHLORIDE 0.9% FLUSH 10 ML FLUSH IV FLUSH SCH (21:00)
[2016-10-20 21:07] VITALS: PULSE 73
[2016-10-20 23:05] VITALS: BP 150/83; PULSE 78; O2SAT 95
[2016-10-20] MEDS: SOTALOL HCL 80 MG TAB PO SCH (23:19)
[2016-10-20] MEDS ORDERED: MORPHINE SULFATE 4 MG/ML INJ IV PUSH ONE (23:30)
[2016-10-20] MEDS ORDERED: RESP: ALBUTEROL 2.5 MG/IPRATROPIUM 0.5 MG NEB (PRN) NEB (23:30)
[2016-10-20] MEDS: SODIUM CHLORIDE 0.9% FLUSH 10 ML FLUSH IV FLUSH SCH (23:50)
[2016-10-20] MEDS: INSULIN ASPART SUPPLEMENTAL SCALE SQ SCH (23:53)
[2016-10-20] MEDS: INSULIN DETEMIR 100 UNITS/ML VIAL SQ SCH (23:53)
[2016-10-20] MEDS: DOCUSATE SODIUM 50 MG/SENNA 8.6 MG TAB PO SCH (23:54)
[2016-10-21] VITALS (11 sets, daily range): BP systolic 119–143; BP diastolic 67–89; PULSE 64–75; RESP 16–18; TEMP 97.5–98.3; O2SAT 92–97
[2016-10-21] MEDS ORDERED: RESP: ALBUTEROL 2.5 MG/IPRATROPIUM 0.5 MG NEB (SCH) NEB (04:00)
[2016-10-21 04:18] LABS: ANION GAP 10 MEQ/L (5-15); AST (GOT) 121 U/L (15-37); BICARBONATE 28.5 MEQ/L (21.0-32.0); BLOOD UREA NITROGEN 10 MG/DL (7-18); CHLORIDE 87 MEQ/L (98-107); GLOMERULAR FILTRATION RATE 120 ML/MIN (>89); POTASSIUM 4.1 MEQ/L (3.5-5.1); SODIUM (NA) 125 MEQ/L (136-145)
[2016-10-21 04:20] LABS: ALT (GPT) 66 U/L (12-78)
[2016-10-21 04:23] LABS: ALKALINE PHOSPHATASE 129 U/L (45-117)
[2016-10-21] MEDS ORDERED: RESP: IPRATROPIUM 0.5 MG/2.5 ML NEB NEB PRN (06:45)
[2016-10-21] MEDS: INSULIN ASPART SUPPLEMENTAL SCALE SQ SCH ×4 (07:00→21:16)
[2016-10-21] MEDS: ATORVASTATIN 40 MG TAB PO SCH (08:21)
[2016-10-21] MEDS: THIAMINE HCL 100 MG TAB PO SCH (08:21)
[2016-10-21] MEDS: ASPIRIN 325 MG TAB PO SCH (08:21)
[2016-10-21] MEDS: SOTALOL HCL 80 MG TAB PO SCH ×2 (08:21→21:09)
[2016-10-21] MEDS: CHOLECALCIFEROL (VIT D3) 1000 UNIT TAB PO SCH (08:22)
[2016-10-21] MEDS: SODIUM CHLORIDE 0.9% FLUSH 10 ML FLUSH IV FLUSH SCH ×2 (08:22→21:10)
[2016-10-21] MEDS: DOCUSATE SODIUM 50 MG/SENNA 8.6 MG TAB PO SCH ×2 (08:22→21:09)
[2016-10-21] MEDS ORDERED: RESP: ALBUTEROL 2.5 MG/3 ML NEB (PRN) NEB (08:45)
[2016-10-21] MEDS ORDERED: SERTRALINE HCL 50 MG TAB PO SCH (09:00)
[2016-10-21] MEDS ORDERED: NON-FORMULARY DRUG (Ketotifen Opth Drops (ZyrTEC Itchy Eye Opth Drops) 1 DROP) EACH EYE SCH (09:00)
[2016-10-21] MEDS ORDERED: THIAMINE 250 MG PO SCH (09:00)
[2016-10-21] MEDS ORDERED: KETOTIFEN EACH EYE SCH (09:00)
--- NOTE | 2016-10-21 09:02 | HHI.PR ---
Subjective Remarks Follow-up on hyponatremia, chest pain, hypoxia. Overnight the patient was noted to have increased O2 requirement, from 2 L to 6 L. No documentation of desats lower than 92 % noted. Patient says that he feels like his slightly more short of breath than yesterday (was not short of breath at home). Was started on frequent Atrovent treatments last night which patient says helps him a little bit. Says that his chest pain has resolved that brought him into the hospital. Apparently also had a run of V. tach which was also self resolved. Sodium improved from 120-125 this morning, however liver enzymes are slightly increased even further from yesterday. Objective Vital Signs Date Time Temp Pulse Resp B/P Pulse Ox O2 Delivery O2 Flow Rate FiO2 10/21/16 04:00 98.2 64 16 119/67 97 10/21/16 01:00 Nasal Cannula 6.00 10/21/16 00:30 92 Nasal Cannula 5.00 10/21/16 00:00 98.3 68 16 128/72 96 10/20/16 23:05 78 150/83 95 10/20/16 23:00 95 Nasal Cannula 2.00 10/20/16 21:07 73 10/20/16 20:00 97.2 64 16 123/67 95 10/20/16 15:30 78 20 125/81 95 Nasal Cannula 2 10/20/16 13:32 73 20 96 Nasal Cannula 10/20/16 13:32 96 Nasal Cannula 2 10/20/16 13:32 98.8 74 20 113/76 96 Nasal Cannula 2 10/20/16 13:13 98.8 75 18 113/76 95 I/O 10/20/16 10/20/16 10/20/16 10/21/16 10/21/16 10/21/16 07:00 15:00 23:00 07:00 15:00 23:00 Output Total 500 ml 400 ml Balance -500 ml -400 ml Output Urine Total 500 ml 400 ml # Bowel Movements 1 Result Diagram: 10/20/16 1335 10/21/16 0323 Objective Remarks Physical Exam GENERAL: This is a well-nourished, well-developed patient, in no apparent distress. HEAD: Atraumatic. Normocephalic. No temporal or scalp tenderness. EYES: No scleral icterus. No injection or drainage. NECK: No JVD or lymphadenopathy. CARDIOVASCULAR: Regular rate and rhythm without murmurs, gallops, or rubs. RESPIRATORY: Clear to auscultation. Diminished breath sounds bilaterally with very faint expiratory wheezing GASTROINTESTINAL: Abdomen soft, nontender palpation today, mildmoderate diffuse abdominal distention with no ascitic wave, nondistended, unable to appreciate any organomegaly MUSCULOSKELETAL: No cyanosis, clubbing, edema NEUROLOGICAL: Awake and alert, oriented A/P Assessment and Plan Assessment and Plan A/P: 65-year-old no be admitted for chest pain rule out (sCHF, defibrillator in place ), acute hyponatremia, now having hypoxia and elevating LFTs. Acute chest pain - resolved, troponins negative, no new changes on EKG since admission. Did have 1 run of V. tach self resolved, does have a defibrillator. Hypoxia/increased O2 demand - Chest x-ray was negative upon admission and patient was not in any respiratory distress at that time either. After O2 withdrawal test, pt's lowest sats fluctating btw 90-92 while resting. Will therefore hold off on pulm angiogram for PE r/o at this time. Suspect this is COPD related. scheduled Solu-Medrol and frequent DuoNeb treatments. COPD exacerbation - possible etiology for above, will manage as above, adding on incentive spirometry CHFrEF 2/2 ischemic cardiomyopathy EF 25% + HTN (controlled)- Continue home atorvastatin, sotalol. 325 mg aspirin daily while inpatient. Resuming home BiDil today since no nitroglycerin was needed. Holding diuretics for now given low-sodium. May consider restarting on Atlace 1.25 mg per card's most recent recommendations on previous encounter once Na level stabilizes. Awaiting further cardiology recommendations Acute mild-mod hyponatremia - Etiology of ETOH cirrhosis w/ beer potomania vs CHF vs med s/e - Improving since yesterday, based upon lab results and clinical picture etiology could be SIADH versus cirrhosis/CHF - Continue with fluid restriction Acute on chronic Elevated liver enzymes -2/2 to ETOH hepatitis/cirrhosis, increasing liver enzymes including bilirubin; negative consider repeat abdominal ultrasound along with GI consult - scheduled low dose Librium Uncontrolled Diabetes A1c 8.5% Levemir plus LDSS w/ accuchecks (may switch to home to receive upon discharge) Hiram Reyes MD Oct 21, 2016 09:02
[2016-10-21] MEDS ORDERED: RESP: IPRATROPIUM 0.5 MG/2.5 ML NEB NEB SCH (10:00)
--- NOTE | 2016-10-21 11:33 | RADRPT ---
EXAM DATE/TIME: 10/21/2016 09:56 [facility] COMPARISON: No previous studies available for comparison. INDICATIONS : Abdominal distention, evaluate for ascites and paracentesis. MEDICAL HISTORY : [place]. CHF. Hypercholesterol. Hypertension. COPD. Diabetes. SURGICAL HISTORY : Pacemaker. CABG. Coronary stent. Cardiac catheterization. ENCOUNTER: Initial ACUITY: 1 day PAIN SCORE: 0/10 LOCATION: Four quadrant. AREA EVALUATED: Four quadrant. FINDINGS: There is a small volume of peritoneal fluid in several sites within the abdomen, none sufficient to w arrant therapeutic paracentesis. CONCLUSION: Small volume of ascites. Shawn Hopper MD on October 21, 2016 at 11:26 Board Certified Radiologist. This report was verified electronically.
--- NOTE | 2016-10-21 11:38 | RADRPT ---
EXAM DATE/TIME: 10/21/2016 09:56 [facility] COMPARISON: No previous studies available for comparison. INDICATIONS : Elevated liver function, abdominal distention. MEDICAL HISTORY : [place]. CHF. Hypercholesterol. Hypertension. COPD. Diabetes. Cirhosis. SURGICAL HISTORY : Pacemaker. CABG. Coronary stent. Cardiac catheterization. ENCOUNTER: Subsequent ACUITY: 1 day PAIN SCORE: 0/10 LOCATION: Bilateral upper quadrant MEASUREMENTS: LIVER: 18.0 cm length COMMON DUCT: 6 mm RIGHT KIDNEY: 11.1 x 5.6 x 5.6 cm LEFT KIDNEY: 12.0 x 5.5 x 6.8 cm SPLEEN: 13.4 cm length AORTA: 1.2cm maximal FINDINGS: Occasional peritoneal fluid LIVER: Diffusely increased hepatic echogenicity likely fatty infiltration. No evidence of focal mass or bili radha ductal dilatation. COMMON DUCT: No intraluminal mass or stone visualized. GALLBLADDER: Minimally distended with a single echogenic focus, potentially a wall adherent stone. Mild nonspecifi c wall thickening. PANCREAS: Poorly seen RIGHT KIDNEY: No hydronephrosis, stone or mass. LEFT KIDNEY: No hydronephrosis, stone or mass. SPLEEN: Mildly enlarged AORTA: Non aneurysmal. IVC: Within normal limits. CONCLUSION: Fatty liver. Occasional abdominal fluid. Mild splenomegaly. Gallstone Shawn Hopper MD on October 21, 2016 at 11:31 Board Certified Radiologist. This report was verified electronically.
[2016-10-21] MEDS: methylPREDNISolone SOD SUCC 125 MG/2 ML VIAL IV PUSH SCH ×3 (12:23→21:09)
[2016-10-21] MEDS: RESP: ALBUTEROL 2.5 MG/IPRATROPIUM 0.5 MG NEB (SCH) NEB ×4 (12:55→23:42)
[2016-10-21] MEDS ORDERED: ACETAMINOPHEN 325 MG TAB PO PRN (16:00)
[2016-10-21] MEDS: ENOXAPARIN SODIUM 40 MG/0.4 ML SYRINGE SQ SCH (16:54)
[2016-10-21] MEDS ORDERED: IOHEXOL 350 MG/ML 10 ML VIAL (for RAD DIAG) IV ONE (19:09)
--- NOTE | 2016-10-21 19:20 | RADRPT ---
EXAM DATE/TIME: 10/21/2016 18:50 [facility] COMPARISON: CT PULMONARY ANGIOGRAM, July 03, 2016, 20:20. INDICATIONS : Short of breath, hypoxia. IV CONTRAST: 50 cc Omnipaque 350 (iohexol) IV RADIATION DOSE: 19.10 CTDIvol (mGy) MEDICAL HISTORY : Myocardial infarction. Diabetes mellitus type 2. Syncope. SURGICAL HISTORY : CABG Pacemaker.Defibrillator.Stents ENCOUNTER: Initial ACUITY: 1 day PAIN SCALE: 3/10 LOCATION: Bilateral chest TECHNIQUE: Volumetric scanning of the chest was performed using a pulmonary embolism protocol MIP images were re constructed. Using automated exposure control and adjustment of the mA and/or kV according to patien t size, radiation dose was kept as low as reasonably achievable to obtain optimal diagnostic quality images. DICOM format image data is available electronically for review and comparison. Follow-up recommendations for incidentally detected pulmonary nodules are based at a minimum on nodul e size and patient risk factors according to Fleischner Society Guidelines. FINDINGS: PULMONARY ARTERIES: No filling defects are seen in the pulmonary arteries through the segmental level. LUNGS: There is minimal bibasilar consolidation. No concerning pulmonary nodule is visualized. Mild centril obular emphysema. PLEURAE: There are tiny pleural effusions and some fluid in the fissures.. MEDIASTINUM: There is good visualization of the great vessels of the middle mediastinum. No evidence of mediastin al or hilar adenopathy/mass. Status post CABG. Left-sided pacemaker. MUSCULOSKELETAL: Within normal limits for patient age. MISCELLANEOUS: The visualized upper abdominal organs demonstrate heterogeneous enlarged liver. Minimal ascites.. CONCLUSION: 1. Cardiomegaly with tiny pleural effusions. 2. No evidence for pulmonary embolism. 3. Minimal bibasilar consolidation likely atelectasis. 4. Heterogeneous enlarged liver with minimal ascites. Titus Arevalo MD on October 21, 2016 at 19:14 Board Certified Radiologist. This report was verified electronically.
[2016-10-21] MEDS: INSULIN DETEMIR 100 UNITS/ML VIAL SQ SCH (21:15)
--- NOTE | 2016-10-21 23:49 | MB ---
cc: JHONNY FRANKLIN M.D. DATE OF CONSULTATION 10/21/16 REASON FOR CONSULTATION Shortness of breath, chest pain, chest tightness. HISTORY OF PRESENT ILLNESS Mr. Sutherland is a 65-year-old gentleman with coronary artery disease, end-stage heart disease, congestive heart failure class III, previous biventricular pacer defibrillator insertion, multiple hospitalization, previous defibrillatory shock, diabetes mellitus, hyperlipidemia, severe peripheral vascular disease, admitted due to chest tightness. During hospitalization pulmonary embolism also suspected. The patient was managed, I was consulted for further evaluation and management. The chart was reviewed. The patient was evaluated. This is a patient well-known by my service. ALLERGIES None. SOCIAL HISTORY Negative for smoking and drinking. FAMILY HISTORY Noncontributory to his current medical condition. MEDICATIONS At home: 1. Imdur. 2. Bumex. 3. Aspirin. 4. Sotalol. 5. Sertraline. 6. Atorvastatin. 7. Flonase. 8. Nitro. 9. Combivent. 10. Thiamine. REVIEW OF SYSTEMS He refer currently feeling better but still has some chest tightness. He has chronic shortness of breath but no chest pain. PHYSICAL EXAMINATION GENERAL: Alert, fully oriented. VITAL SIGNS: Blood pressure 137/82, pulse 71, respiratory rate around 20. LUNGS: Ventilated. CARDIOVASCULAR: S1-S2, regular. No gallop. No murmur. ABDOMEN: Soft. No mass. EXTREMITIES: No edema. CARDIOLOGY STUDIES Electrocardiogram sinus rhythm, bi-V pacing. LABORATORY DATA Hemoglobin 12.1, white blood cell 8.5, potassium 4.1, sodium 125, he was 120 hospitalization, creatinine 0.67. Troponin 0.04. TSH is 5.36. INR 1.2. ASSESSMENT AND RECOMMENDATIONS Mr. Sutherland's condition is stable. He is showing some improvement. The sodium was very low, 120. Hyponatremia in the setting of end-stage heart failure is an indication that the prognosis is getting worse. The gentleman has ___ defibrillatory shock. A CT angio indicated no pulmonary embolism. His BNP is 9.12. But there is no clear sign of heart failure. My recommendation at this point is continue with current medical management. Thyroid management by the PCP. When the patient is stable he can be discharged home. As mentioned before this is end stage heart disease. At[place]inette is not a candidate for coronary intervention. I agree with current management. I will follow him during hospitalization. MD GINNY Zambrano/KYLE /7:49 PM /11:32 PM
[2016-10-22] VITALS (8 sets, daily range): BP systolic 113–143; BP diastolic 71–92; PULSE 73–88; RESP 16–18; TEMP 97.3–98.7; O2SAT 93–99
[2016-10-22] MEDS: methylPREDNISolone SOD SUCC 125 MG/2 ML VIAL IV PUSH SCH ×3 (03:07→18:01)
[2016-10-22] MEDS: RESP: ALBUTEROL 2.5 MG/IPRATROPIUM 0.5 MG NEB (SCH) NEB ×5 (04:01→20:15)
[2016-10-22] MEDS: INSULIN ASPART SUPPLEMENTAL SCALE SQ SCH ×4 (06:19→20:59)
[2016-10-22 06:45] LABS: ALKALINE PHOSPHATASE 139 U/L (45-117)
[2016-10-22 06:50] LABS: ALT (GPT) 87 U/L (12-78); ANION GAP 11 MEQ/L (5-15); AST (GOT) 157 U/L (15-37); BICARBONATE 25.6 MEQ/L (21.0-32.0); BLOOD UREA NITROGEN 17 MG/DL (7-18); CHLORIDE 90 MEQ/L (98-107); GLOMERULAR FILTRATION RATE 86 ML/MIN (>89); POTASSIUM 4.3 MEQ/L (3.5-5.1); SODIUM (NA) 127 MEQ/L (136-145)
[2016-10-22] MEDS: CHOLECALCIFEROL (VIT D3) 1000 UNIT TAB PO SCH (08:49)
[2016-10-22] MEDS: SOTALOL HCL 80 MG TAB PO SCH ×2 (08:49→20:55)
[2016-10-22] MEDS: DOCUSATE SODIUM 50 MG/SENNA 8.6 MG TAB PO SCH ×2 (08:49→20:56)
[2016-10-22] MEDS: THIAMINE HCL 100 MG TAB PO SCH (08:50)
[2016-10-22] MEDS: SODIUM CHLORIDE 0.9% FLUSH 10 ML FLUSH IV FLUSH SCH ×2 (08:50→20:56)
[2016-10-22] MEDS: ASPIRIN 325 MG TAB PO SCH (08:50)
[2016-10-22] MEDS: ATORVASTATIN 40 MG TAB PO SCH (08:50)
[2016-10-22 09:35] LABS: INTERNATIONAL NORMALIZED RATIO 1.2 RATIO; PROTHROMBIN TIME - PATIENT 13.3 SEC (9.8-11.6)
--- NOTE | 2016-10-22 10:11 | HHI.PR ---
Subjective Remarks Follow-up on hyponatremia, chest pain, hypoxia. Overnight the patient's oxygen requirement decreased, upon examination morning was titrated off of oxygen and is saturating well on room air . CT scan was negative for pulmonary embolism yesterday. Sodium has improved further to 127, however liver enzymes continue to rise, ammonia check today at 54. No reports of clinical confusion observed by nursing staff or by patient or family. Objective Vital Signs Date Time Temp Pulse Resp B/P Pulse Ox O2 Delivery O2 Flow Rate FiO2 10/22/16 08:00 98.4 81 18 129/78 96 10/22/16 04:03 99 Nasal Cannula 3.00 10/22/16 04:00 Nasal Cannula 3.00 Humidified 10/22/16 04:00 98.2 80 16 143/92 93 10/22/16 00:00 Nasal Cannula 3.00 Humidified 10/22/16 00:00 97.3 73 16 135/86 97 10/21/16 23:44 96 Nasal Cannula 3.00 10/21/16 20:50 97 Nasal Cannula 4.00 10/21/16 20:00 Nasal Cannula 3.00 Humidified 10/21/16 20:00 97.5 75 16 143/89 94 10/21/16 20:00 73 10/21/16 16:00 98.3 71 18 137/82 93 10/21/16 12:00 98.2 66 18 139/79 96 I/O 10/21/16 10/21/16 10/21/16 10/22/16 10/22/16 10/22/16 07:00 15:00 23:00 07:00 15:00 23:00 Intake Total 480 ml 240 ml 240 ml Output Total 400 ml 800 ml 200 ml Balance -400 ml 480 ml -560 ml 40 ml Intake Oral 480 ml 240 ml 240 ml Output Urine Total 400 ml 800 ml 200 ml # Voids 3 # Bowel Movements 2 0 0 Result Diagram: 10/20/16 1335 10/22/16 0549 Other Results Laboratory Tests Test 10/22/16 10/22/16 05:49 08:45 Sodium Level 127 MEQ/L (136-145) Potassium Level 4.3 MEQ/L (3.5-5.1) Chloride Level 90 MEQ/L (98-107) Carbon Dioxide Level 25.6 MEQ/L (21.0-32.0) Anion Gap 11 MEQ/L (5-15) Blood Urea Nitrogen 17 MG/DL (7-18) Creatinine 0.89 MG/DL (0.60-1.30) Estimat Glomerular Filtration 86 ML/MIN (>89) Rate Random Glucose 187 MG/DL (74-106) Calcium Level 8.5 MG/DL (8.5-10.1) Total Bilirubin 2.0 MG/DL (0.2-1.0) Aspartate Amino Transf 157 U/L (15-37) (AST/SGOT) Alanine Aminotransferase 87 U/L (12-78) (ALT/SGPT) Alkaline Phosphatase 139 U/L (45-117) Total Protein 8.4 GM/DL (6.4-8.2) Albumin 3.2 GM/DL (3.4-5.0) Prothrombin Time 13.3 SEC (9.8-11.6) Prothromb Time International 1.2 RATIO Ratio Ammonia 54 MCMOL/L (11-32) Free Thyroxine 0.97 NG/DL (0.76-1.46) Objective Remarks Physical Exam GENERAL: This is a well-nourished, well-developed patient, in no apparent distress. HEAD: Atraumatic. Normocephalic. No temporal or scalp tenderness. EYES: No scleral icterus. No injection or drainage. NECK: No JVD CARDIOVASCULAR: Regular rate and rhythm without murmurs, gallops, or rubs. RESPIRATORY: Clear to auscultation. Improved breath sounds bilaterally that are clear to auscultation today GASTROINTESTINAL: Abdomen soft, nontender palpation today, mild to moderate distention MUSCULOSKELETAL: No cyanosis, clubbing, edema NEUROLOGICAL: Awake and alert, oriented A/P Problem List: (1) Elevated liver enzymes ICD Code: R74.8 (2) Acute hyponatremia ICD Code: E87.1 (3) Ascites ICD Code: R18.8 (4) Systolic heart failure secondary to coronary artery disease ICD Code: I50.20 (5) COPD with exacerbation ICD Code: J44.1 (6) Ischemic cardiomyopathy ICD Code: I25.5 Assessment and Plan Assessment and Plan A/P: 65-year-old no be admitted for chest pain rule out (sCHF, defibrillator in place ), acute hyponatremia, now having hypoxia and elevating LFTs. Acute chest pain - resolved Hypoxia/increased O2 demand - CT angiogram negative for pulmonary embolism, likely COPD exacerbation, now on room air doing well. COPD exacerbation -decreasing steroid dose CHFrEF 2/2 ischemic cardiomyopathy EF 25% + HTN (controlled)- will continue most of home medications, will schedule by mouth diuresis per cardiology to minimize fluid overload/accumulation. Fluid restriction. We'll start low-dose entresto. Acute mild-mod hyponatremia - currently asymptomatic, improvement seems to be reaching a plateau from 120 -> 125 -> 127. Etiology being CHF/ETOHhepatitis Acute on chronic Elevated liver enzymes - Heart failure and/or alcoholic hepatitis as etiology. Imaging performed yesterday showing minimal ascites with cirrhotic liver, too small to drain. Continues elevation of LFTs, GI consulted for further recommendations. Ammonia elevated at 54 INR elevated at 1.2. Uncontrolled Diabetes A1c 8.5% Levemir plus LDSS w/ accuchecks (may switch to home to receive upon discharge) GI has no further recommendations for inpatient care, will discharge patient later today. Hiram Reyes MD Oct 22, 2016 10:11
[2016-10-22] MEDS: SACUBITRIL/VALSARTAN 24 MG-26 MG TAB PO SCH ×2 (12:06→20:55)
--- NOTE | 2016-10-22 14:08 | PD.CONS ---
HPI History of Present Illness This is a 65 year old male with pmh significant for CHF, CAD with a CABG 20 years ago, Ischemic cardiomyopathy myopathy with the AICD/pacemaker replaced April 2015, alcoholic cirrhosis ( liver bx on 07/24/15, revealed liver cirrhosis), who is here for evaluation of chest pain, described as tightens in sternum for 3 days. He was evaluated by cardiology who recommended medical management. GI have been consulted for worsening LFTs AST 157, ALT87, RVL122, bili 2.0. Abdomen Ultrasound 10/21/16 Small volume of ascites, fatty liver, occasional abd fluid, mild splenomegaly, gallstone. Patient cont to drink 2 beers a day. He reports nausea, but no vomiting. Reports mild diffused abd pain. He endorses orange urine which is different for him. He also started having diarrhea yesterday about 3 loose stools a day. Denies hematemesis, hematochezia or melena. Denies fever, chills . Chest pain has resolved (Shellie Genao) PFSH Past Medical History CAD with a CABG 20 years ago. 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 Hyperlipidemia, diabetes, ventricular tachycardia, peripheral vascular disease, CHF Past Surgical History Coronary artery bypass grafting about 20 years ago. He has had heart catheterizations. He has had ablations. Stents in his legs. He has a AICD/ pacemaker. Hernia repair. EGD/colonoscopy (Shellie Genao) Coded Allergies: No Known Allergies (Unverified , 09/07/16) Medications Current Medications Medications (Trade) Dose Ordered Sig/Yakelin Route Start Time Stop Time Status Last Admin (Lovenox Inj) 40 mg Q24H SQ 10/20/16 17:00 10/21/16 16:54 (Narcan Inj) 0.4 mg UNSCH PRN IV 10/20/16 16:15 (Caty-Colace) 1 tab BID PO 10/20/16 21:00 10/22/16 08:49 (Milk Of Magnesia Liq) 30 ml Q12H PRN PO 10/20/16 16:15 (Senokot) 17.2 mg Q12H PRN PO 10/20/16 16:15 (Dulcolax Supp) 10 mg DAILY PRN RECTAL 10/20/16 16:15 (Lactulose Liq) 30 ml DAILY PRN PO 10/20/16 16:15 (NS Flush) 2 ml UNSCH PRN IV FLUSH 10/20/16 16:15 (NS Flush) 2 ml BID IV FLUSH 10/20/16 21:00 10/22/16 08:50 (Lipitor) 40 mg DAILY PO 10/21/16 09:00 10/22/16 08:50 (Vitamin D3) 1,000 units DAILY PO 10/21/16 09:00 10/22/16 08:49 (Betapace) 80 mg BID PO 10/20/16 21:00 10/22/16 08:49 (Aspirin) 325 mg DAILY PO 10/21/16 09:00 10/22/16 08:50 (Levemir Inj) 10 units HS SQ 10/20/16 21:00 10/21/16 21:15 (D50w (Vial) Inj) 50 ml UNSCH PRN IV 10/20/16 17:30 (Glucagon Inj) 1 mg UNSCH PRN OTHER 10/20/16 17:30 (Vitamin B1) 250 mg DAILY PO 10/21/16 09:00 10/22/16 08:50 (Pill Splitter) 1 ea UNSCH PRN OTHER 10/20/16 18:45 (Librium) 5 mg BID PO 10/20/16 21:00 10/22/16 08:50 Patient Own Medication PT OWN MED: COMBIV... BID INH 10/20/16 21:00 Hold Patient Own Medication POM:KETOTIFEN OPTH MARIA D--1 DROP EACH ... DAILY EACH EYE 10/21/16 09:00 Hold (Tylenol) 650 mg Q4H PRN PO 10/21/16 16:00 (SoluMEDROL INJ) 60 mg Q8H IV PUSH 10/22/16 11:00 10/22/16 12:06 (Entresto 24-26 Mg) 1 tab BID PO 10/22/16 10:15 10/22/16 12:06 Family History Fhx of CAD Social History Patient quit smoking 2 years ago. 40 PPD yrs. He drinks 2 beers daily. Denies illicit drugs. (Shellie Genao) Review of Systems Constitutional: COMPLAINS OF: Fatigue Endocrine: DENIES: Polyuria Eyes: DENIES: Double Vision Respiratory: COMPLAINS OF: Shortness of breath Cardiovascular: DENIES: Lower Extremity Edema Gastrointestinal: COMPLAINS OF: Abdominal pain, Diarrhea, Nausea, DENIES: Black stools, Bloody stools, Constipation, Vomiting, Difficulty Swallowing, Anorexia, Odynophagia, Swelling of Abdomen, Heartburn, Hematemesis Genitourinary: DENIES: Hematuria Musculoskeletal: DENIES: Neck pain Integumentary: DENIES: Jaundice Hematologic/lymphatic: DENIES: Bruising Immunologic/allergic: DENIES: Eczema Neurologic: DENIES: Abnormal gait Psychiatric: DENIES: Anxiety (Shellie Genao) GI Exam Vitals I&O Vital Signs Date Time Temp Pulse Resp B/P Pulse Ox O2 Delivery O2 Flow Rate FiO2 10/22/16 12:00 97.9 82 18 128/71 94 10/22/16 08:00 98.4 81 18 129/78 96 10/22/16 08:00 88 10/22/16 07:00 96 Nasal Cannula 2.00 Humidified 10/22/16 04:03 99 Nasal Cannula 3.00 10/22/16 04:00 Nasal Cannula 3.00 Humidified 10/22/16 04:00 98.2 80 16 143/92 93 10/22/16 00:00 Nasal Cannula 3.00 Humidified 10/22/16 00:00 97.3 73 16 135/86 97 10/21/16 23:44 96 Nasal Cannula 3.00 10/21/16 20:50 97 Nasal Cannula 4.00 10/21/16 20:00 Nasal Cannula 3.00 Humidified 10/21/16 20:00 97.5 75 16 143/89 94 10/21/16 20:00 73 10/21/16 16:00 98.3 71 18 137/82 93 I/O 10/21/16 10/21/16 10/21/16 10/22/16 10/22/16 10/22/16 06:59 14:59 22:59 06:59 14:59 22:59 Intake Total 480 ml 240 ml 240 ml Output Total 400 ml 800 ml 200 ml Balance -400 ml 480 ml -560 ml 40 ml Intake Oral 480 ml 240 ml 240 ml Output Urine Total 400 ml 800 ml 200 ml # Voids 3 # Bowel Movements 2 0 [address] Angiography 10/21/16 0000 Signed Impressions: Service Date/Time: Friday, October 21, 2016 18:50 - CONCLUSION: 1. Cardiomegaly with tiny pleural effusions. 2. No evidence for pulmonary embolism. 3. Minimal bibasilar consolidation likely atelectasis. 4. Heterogeneous enlarged liver with minimal ascites. Titus Arevalo MD Abdomen Ultrasound 10/21/16 0000 Signed Impressions: Service Date/Time: Friday, October 21, 2016 09:56 - CONCLUSION: Small volume of ascites. Shawn Hopper MD Chest X-Ray 10/20/16 1312 Signed Impressions: Service Date/Time: Thursday, October 20, 2016 13:13 - CONCLUSION: 1. Cardiomegaly with mild pulmonary vascular engorgement but no interstitial or intra-alveolar pulmonary edema observed. Gigi Farias Jr., MD Laboratory Test 10/21/16 10/22/16 10/22/16 20:56 05:49 08:45 Lactate Dehydrogenase 301 U/L Total Protein 7.7 GM/DL 8.4 GM/DL Sodium Level 127 MEQ/L Potassium Level 4.3 MEQ/L Chloride Level 90 MEQ/L Carbon Dioxide Level 25.6 MEQ/L Anion Gap 11 MEQ/L Blood Urea Nitrogen 17 MG/DL Creatinine 0.89 MG/DL Estimat Glomerular Filtration 86 ML/MIN Rate Random Glucose 187 MG/DL Calcium Level 8.5 MG/DL Total Bilirubin 2.0 MG/DL Aspartate Amino Transf 157 U/L (AST/SGOT) Alanine Aminotransferase 87 U/L (ALT/SGPT) Alkaline Phosphatase 139 U/L Albumin 3.2 GM/DL Prothrombin Time 13.3 SEC Prothromb Time International 1.2 RATIO Ratio Ammonia 54 MCMOL/L Free Thyroxine 0.97 NG/DL Physical Examination HEENT: normocephalic; atraumatic; no jaundice. NECK: Neck is supple, no JVD, no lymphadenopathy. CHEST: Chest is clear to auscultation and percussion. CARDIAC: Regular rate and rhythm with no murmur gallop or rubs. ABDOMEN: Soft, obese, nondistended, nontender; hepatosplenomegaly; bowel sounds are present in all four quadrants. EXTREMITIES: No clubbing, cyanosis, or edema. SKIN: Normal; no rash; no jaundice. NETWORK DEVELOPER: No focal deficits; alert and oriented times three. (Shellie Genao) Assessment and Plan Plan - Worsening LFTs- GI have been consulted for worsening LFTs AST 157, ALT87, [id number], bili 2.0. Abdomen Ultrasound 10/21/16 Small volume of ascites, fatty liver, occasional abd fluid, mild splenomegaly, gallstone. Patient cont to drink 2 beers a day. He reports nausea, but no vomiting. Reports mild diffused abd pain. He endorses orange urine which is different for him. He also started having diarrhea yesterday about 3 loose stools a day. Denies hematemesis, hematochezia or melena. Denies fever, chills . - Alcoholic Cirrhosis- liver bx on (07/24/15) showed liver cirrhosis, he cont to drink 2 beers a day. Our records indicate patient had EGD/colonoscopy on (07/29/15) and was recommended a repeat in one year for polyps and esophageal varices. - hx of esophagea varices- he is on BB, needs EGD - Diarrhea since yesterday- will order stools for C-diff - Chest pain- Resolved. S/p cardiology eval and recommendation for medical management - hx of CHF, CAD with a CABG 20 years ago, Ischemic cardiomyopathy myopathy with the AICD/pacemaker replaced April 2015, Plan: - [place] - CT to R/O biliary involvement, patient not able to have MrCP - LFTs in am - Await stools - Alcohol cessation - He is due for EGD/colonoscopy but this could be done as an OP, patient was made aware of this - Supportive care - Patient seen and examined by and myself and this note is written on his behalf. (Shellie Genao) Physician Comments Patient seen and examined Agree with above Continue with current supportive care Monitor labs Patient with worsening LFTs this is due to acute alcoholic hepatitis superimposed on cirrhosis of the liver Patient is advised to stop alcohol Patient will need upper endoscopy and colonoscopy this could be done on an outpatient basis patient to follow up with GI post discharge Patient needs to be on a low-salt diet (Linus Gamble MD) Shellie Genao Oct 22, 2016 14:08 Linus Gamble MD Oct 22, 2016 21:02
[2016-10-22] MEDS ORDERED: IOHEXOL 350 MG/ML 10 ML VIAL (for RAD DIAG) IV ONE (16:23)
--- NOTE | 2016-10-22 16:51 | RADRPT ---
EXAM DATE/TIME: 10/22/2016 16:18 [place] COMPARISON: CT ABDOMEN & PELVIS W CONTRAST, April 10, 2015, 21:24. INDICATIONS : Abdomen pain for one day with elevating LFT's IV CONTRAST: 75 cc Omnipaque 350 (iohexol) IV ORAL CONTRAST: No oral contrast ingested. RADIATION DOSE: 15.91 CTDIvol (mGy) MEDICAL HISTORY : Myocardial infarction. Cardiovascular disease Diabetes mellitus type 2.COPD, Asthma, Cirrhosis. SURGICAL HISTORY : CABG Coronary artery stent.Hernia repair, ENCOUNTER: Initial ACUITY: 1 day PAIN SCALE: 4/10 LOCATION: Bilateral upper quadrant TECHNIQUE: Volumetric scanning of the abdomen was performed. Using automated exposure control and adjustment of the mA and/or kV according to patient size, radiation dose was kept as low as reasonably achievable to obtain optimal diagnostic quality images. DICOM format image data is available electronically for review and comparison. FINDINGS: The liver is enlarged, nodular and demonstrates diffuse decreased attenuation consistent with cirrhos is. No focal hepatic mass is noted. No biliary ductal dilatation is noted. The gallbladder is nond istended and its wall is mildly thickened. There is a tiny calcified gallstone within the lumen of t he gallbladder. The spleen is stable in size compared to the previous examination and demonstrates s cattered punctate calcifications consistent with granulomas. The pancreas is normal. The adrenal gl ands are normal bilaterally. There is a 14 mm cystic lesion arising from the upper pole of the left kidney which is mildly complex but relatively stable in size compared to the previous examination. T here is a tiny subcentimeter simple cyst within the lower pole of the left kidney also. No hydronephr osis is noted within the kidney. The abdominal aorta is calcified but is not aneurysmally dilated. T he inferior vena cava is normal. There is no significant retroperitoneal lymphadenopathy. No signifi cant ascites is noted. Very tiny pleural effusions are noted. Calcified granuloma is noted within t he right lower lobe. The heart is enlarged. The urinary bladder is unremarkable. Uncomplicated colonic diverticulosis is noted. No acute divert iculitis is noted. CONCLUSION: 1. Enlarged nodular liver with diffuse decreased attenuations consistent with cirrhosis. 2. Cholelithiasis. 3. Uncomplicated colonic diverticulosis. 4. 14 mm upper pole left renal cyst which is mildly complex but relatively stable in size. 5. Tiny simple cysts within the lower pole of the left kidney. 6. Tiny bilateral pleural effusions. Damian Davila MD on October 22, 2016 at 16:32 Board Certified Radiologist. This report was verified electronically.
[2016-10-22] MEDS: ENOXAPARIN SODIUM 40 MG/0.4 ML SYRINGE SQ SCH (17:05)
[2016-10-22 17:21] LABS: C. DIFF EPI 027 PRESUMPTIVE NEGATIVE (NEGATIVE); C. DIFF TOXIN PCR NEGATIVE (NEGATIVE)
[2016-10-22] MEDS ORDERED: LOPERAMIDE HCL 2 MG CAP PO PRN (17:30)
[2016-10-22] MEDS: INSULIN DETEMIR 100 UNITS/ML VIAL SQ SCH (20:58)
[2016-10-23] VITALS: BP 116/71; PULSE 74; RESP 20; TEMP 98; O2SAT 94
[2016-10-23] MEDS: RESP: ALBUTEROL 2.5 MG/IPRATROPIUM 0.5 MG NEB (SCH) NEB ×3 (00:18→09:34)
[2016-10-23] MEDS: methylPREDNISolone SOD SUCC 125 MG/2 ML VIAL IV PUSH SCH (02:20)
[2016-10-23 04:00] VITALS: BP 116/90; PULSE 70; RESP 20; TEMP 97.7; O2SAT 93
[2016-10-23] MEDS: INSULIN ASPART SUPPLEMENTAL SCALE SQ SCH ×2 (06:12→11:43)
[2016-10-23 07:33] LABS: ALKALINE PHOSPHATASE 120 U/L (45-117); ALT (GPT) 76 U/L (12-78); ANION GAP 13 MEQ/L (5-15); BICARBONATE 24.3 MEQ/L (21.0-32.0); CHLORIDE 87 MEQ/L (98-107); GLOMERULAR FILTRATION RATE 91 ML/MIN (>89); TOTAL BILIRUBIN ADULT 1.3 MG/DL (0.2-1.0)
[2016-10-23 07:35] LABS: AST (GOT) 132 U/L (15-37); BLOOD UREA NITROGEN 26 MG/DL (7-18)
[2016-10-23 07:38] LABS: POTASSIUM 6.5 MEQ/L (3.5-5.1); SODIUM (NA) 124 MEQ/L (136-145)
[2016-10-23 08:00] VITALS: BP 126/72; PULSE 74; RESP 20; TEMP 97.9; O2SAT 94
--- NOTE | 2016-10-23 09:00 | PD.CARD.PN ---
Subjective Subjective Remarks Complains of weakness, fatigue, dyspnea. Denies chest pain. Objective Medications Current Medications Medications (Trade) Dose Ordered Sig/Yakelin Route Start Time Stop Time Status Last Admin (Lovenox Inj) 40 mg Q24H SQ 10/20/16 17:00 10/22/16 17:05 (Narcan Inj) 0.4 mg UNSCH PRN IV 10/20/16 16:15 (Caty-Colace) 1 tab BID PO 10/20/16 21:00 10/22/16 08:49 (Milk Of Magnesia Liq) 30 ml Q12H PRN PO 10/20/16 16:15 (Senokot) 17.2 mg Q12H PRN PO 10/20/16 16:15 (Dulcolax Supp) 10 mg DAILY PRN RECTAL 10/20/16 16:15 (Lactulose Liq) 30 ml DAILY PRN PO 10/20/16 16:15 (NS Flush) 2 ml UNSCH PRN IV FLUSH 10/20/16 16:15 10/23/16 02:21 (NS Flush) 2 ml BID IV FLUSH 10/20/16 21:00 10/22/16 20:56 (Lipitor) 40 mg DAILY PO 10/21/16 09:00 10/22/16 08:50 (Vitamin D3) 1,000 units DAILY PO 10/21/16 09:00 10/22/16 08:49 (Betapace) 80 mg BID PO 10/20/16 21:00 10/22/16 20:55 (Aspirin) 325 mg DAILY PO 10/21/16 09:00 10/22/16 08:50 (Levemir Inj) 10 units HS SQ 10/20/16 21:00 10/22/16 20:58 (D50w (Vial) Inj) 50 ml UNSCH PRN IV 10/20/16 17:30 (Glucagon Inj) 1 mg UNSCH PRN OTHER 10/20/16 17:30 (Vitamin B1) 250 mg DAILY PO 10/21/16 09:00 10/22/16 08:50 (Pill Splitter) 1 ea UNSCH PRN OTHER 10/20/16 18:45 (Librium) 5 mg BID PO 10/20/16 21:00 10/22/16 20:55 Patient Own Medication PT OWN MED: COMBIV... BID INH 10/20/16 21:00 Hold Patient Own Medication POM:KETOTIFEN OPTH MARIA D--1 DROP EACH ... DAILY EACH EYE 10/21/16 09:00 Hold (Tylenol) 650 mg Q4H PRN PO 10/21/16 16:00 10/22/16 19:40 (SoluMEDROL INJ) 60 mg Q8H IV PUSH 10/22/16 11:00 10/23/16 02:20 (Entresto 24-26 Mg) 1 tab BID PO 10/22/16 10:15 10/22/16 20:55 (Imodium) 2 mg Q6H PRN PO 10/22/16 17:30 10/22/16 19:40 Vital Signs / I&O Vital Signs Date Time Temp Pulse Resp B/P Pulse Ox O2 Delivery O2 Flow Rate FiO2 10/23/16 04:00 97.7 70 20 116/90 93 10/23/16 00:00 98.0 74 20 116/71 94 10/22/16 20:06 98.7 79 18 113/71 95 10/22/16 20:00 73 10/22/16 20:00 Room Air 10/22/16 16:00 98.0 80 18 128/71 94 10/22/16 12:00 97.9 82 18 128/71 94 I/O 10/22/16 10/22/16 10/22/16 10/23/16 10/23/16 10/23/16 07:00 15:00 23:00 07:00 15:00 23:00 Intake Total 240 ml 480 ml 380 ml 220 ml Output Total 200 ml 500 ml Balance 40 ml 480 ml 380 ml -280 ml Intake Oral 240 ml 480 ml 380 ml 220 ml Output Urine Total 200 ml 500 ml # Voids 2 3 # Bowel Movements 0 3 0 Physical Exam GENERAL: Well-nourished, well-developed patient. SKIN: Warm and damp. Ecchymosis on bilateral upper extremities. HEAD: Normocephalic. EYES: No scleral icterus. No injection or drainage. NECK: Supple, trachea midline. No JVD or lymphadenopathy. CARDIOVASCULAR: Regular rate and rhythm without gallops, murmur or rubs. RESPIRATORY: Breath sounds equal, diminished bilaterally. No accessory muscle use. GASTROINTESTINAL: Abdomen obese, distended, nontender. Normoactive bowel sounds. EXTREMITIES: No cyanosis, 2+ generalized edema. NEUROLOGICAL: Awake, alert, and oriented x 3. Non-focal. Laboratory Laboratory Tests Test 10/22/16 10/23/16 15:30 05:50 Stool C. difficile Toxin (PCR) NEGATIVE Stl C. difficile Toxin PRESUMPTIVE Epiderm 027 NEGATIVE Sodium Level 124 MEQ/L Potassium Level 6.5 MEQ/L Chloride Level 87 MEQ/L Carbon Dioxide Level 24.3 MEQ/L Anion Gap 13 MEQ/L Blood Urea Nitrogen 26 MG/DL Creatinine 0.85 MG/DL Estimat Glomerular Filtration 91 ML/MIN Rate Random Glucose 156 MG/DL Calcium Level 8.5 MG/DL Total Bilirubin 1.3 MG/DL Aspartate Amino Transf 132 U/L (AST/SGOT) Alanine Aminotransferase 76 U/L (ALT/SGPT) Alkaline Phosphatase 120 U/L Total Protein 8.2 GM/DL Albumin 3.2 GM/DL Imaging Last Impressions Abdomen CT 10/22/16 0000 Signed Impressions: Service Date/Time: September 16:18 - CONCLUSION: 1. Enlarged nodular liver with diffuse decreased attenuations consistent with cirrhosis. 2. Cholelithiasis. 3. Uncomplicated colonic diverticulosis. 4. 14 mm upper pole left renal cyst which is mildly complex but relatively stable in size. 5. Tiny simple cysts within the lower pole of the left kidney. 6. Tiny bilateral pleural effusions. Damian Davila MD CT Angiography 10/21/16 0000 Signed Impressions: Service Date/Time: Friday, October 21, 2016 18:50 - CONCLUSION: 1. Cardiomegaly with tiny pleural effusions. 2. No evidence for pulmonary embolism. 3. Minimal bibasilar consolidation likely atelectasis. 4. Heterogeneous enlarged liver with minimal ascites. Titus Arevalo MD Abdomen Ultrasound 10/21/16 0000 Signed Impressions: Service Date/Time: Friday, October 21, 2016 09:56 - CONCLUSION: Small volume of ascites. Shawn Hopper MD Chest X-Ray 10/20/16 1312 Signed Impressions: Service Date/Time: Thursday, October 20, 2016 13:13 - CONCLUSION: 1. Cardiomegaly with mild pulmonary vascular engorgement but no interstitial or intra-alveolar pulmonary edema observed. Gigi Farias Jr., MD Assessment and Plan Problem List: (1) CHF (congestive heart failure) Assessment and Plan: He has class III, acute on chronic systolic heart failure. He underwent biventricular ICD/cardiac resynchronization device implantation in 2016 and has since had multiple shocks. His sodium on admission was 120 indicating a worsening prognosis. At this time no further cardiac interventions are available. Per my discussion with Dr. Davenport, he recommends consultation with palliative care to determine hospice suitability if goals of care are consistent. I did discuss this with the patient and he does request a palliative care consultation as he feels hospice may be his best option at this point. Consultation will be ordered. (2) Ischemic cardiomyopathy Assessment and Plan: Status post CABG 20 years ago. Ejection fraction in June 2016 was 20-25% by echo. (3) Alcoholic cirrhosis Assessment and Plan: GI following. 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 He feels his ascites is worsening. He does continue to drink alcohol. Liver biopsy was positive for alcoholic cirrhosis. Assessment and Plan Will request consultation with palliative care team to determine goals of care per my discussion with Dr. Davenport and with the patient. Problem Qualifiers (1) CHF (congestive heart failure): Qualified Code: I50.23 - Acute on chronic systolic congestive heart failure (2) Alcoholic cirrhosis: Qualified Code: K70.31 - Alcoholic cirrhosis of liver with ascites Jazz Godfrey Oct 23, 2016 09:00
[2016-10-23 09:35] VITALS: O2SAT 95
[2016-10-23] MEDS: ATORVASTATIN 40 MG TAB PO SCH (09:49)
[2016-10-23] MEDS: SOTALOL HCL 80 MG TAB PO SCH (09:49)
[2016-10-23] MEDS: SACUBITRIL/VALSARTAN 24 MG-26 MG TAB PO SCH (09:49)
[2016-10-23] MEDS: ASPIRIN 325 MG TAB PO SCH (09:50)
[2016-10-23] MEDS: DOCUSATE SODIUM 50 MG/SENNA 8.6 MG TAB PO SCH (09:50)
[2016-10-23] MEDS: THIAMINE HCL 100 MG TAB PO SCH (09:50)
[2016-10-23] MEDS ORDERED: SACU1TAB PO (10:02)
[2016-10-23] MEDS ORDERED: PRED10PA PO (10:02)
[2016-10-23] MEDS ORDERED: FURO20TA PO (10:02)
[2016-10-23] MEDS ORDERED: VENTAER INH (10:02)
[2016-10-23] MEDS ORDERED: LOPE2CAP92 PO (10:02)
--- NOTE | 2016-10-23 10:04 | HHI.GIFU ---
Subjective Remarks Patient is sitting up in bed, denies any GI complaints, going home soon. (Shellie Genao KYM) Objective Vitals I&O Vital Signs Date Time Temp Pulse Resp B/P Pulse Ox O2 Delivery O2 Flow Rate FiO2 10/23/16 09:35 95 21 10/23/16 08:00 97.9 74 20 126/72 94 10/23/16 04:00 97.7 70 20 116/90 93 10/23/16 00:00 98.0 74 20 116/71 94 10/22/16 20:06 98.7 79 18 113/71 95 10/22/16 20:00 73 10/22/16 20:00 Room Air 10/22/16 16:00 98.0 80 18 128/71 94 10/22/16 12:00 97.9 82 18 128/71 94 I/O 10/22/16 10/22/16 10/22/16 10/23/16 10/23/16 10/23/16 07:00 15:00 23:00 07:00 15:00 23:00 Intake Total 240 ml 480 ml 380 ml 220 ml Output Total 200 ml 500 ml Balance 40 ml 480 ml 380 ml -280 ml Intake Oral 240 ml 480 ml 380 ml 220 ml Output Urine Total 200 ml 500 ml # Voids 2 3 # Bowel Movements 0 3 0 Laboratory Laboratory Tests Test 10/22/16 10/23/16 15:30 05:50 Stool C. difficile Toxin (PCR) NEGATIVE Stl C. difficile Toxin PRESUMPTIVE Epiderm 027 NEGATIVE Sodium Level 124 Potassium Level 6.5 Chloride Level 87 Carbon Dioxide Level 24.3 Anion Gap 13 Blood Urea Nitrogen 26 Creatinine 0.85 Estimat Glomerular Filtration 91 Rate Random Glucose 156 Calcium Level 8.5 Total Bilirubin 1.3 Aspartate Amino Transf 132 (AST/SGOT) Alanine Aminotransferase 76 (ALT/SGPT) Alkaline Phosphatase 120 Total Protein 8.2 Albumin 3.2 Imaging Last Impressions Abdomen CT 10/22/16 0000 Signed Impressions: Service Date/Time: September 16:18 - CONCLUSION: 1. Enlarged nodular liver with diffuse decreased attenuations consistent with cirrhosis. 2. Cholelithiasis. 3. Uncomplicated colonic diverticulosis. 4. 14 mm upper pole left renal cyst which is mildly complex but relatively stable in size. 5. Tiny simple cysts within the lower pole of the left kidney. 6. Tiny bilateral pleural effusions. Damian Davila MD CT Angiography 10/21/16 0000 Signed Impressions: Service Date/Time: Friday, October 21, 2016 18:50 - CONCLUSION: 1. Cardiomegaly with tiny pleural effusions. 2. No evidence for pulmonary embolism. 3. Minimal bibasilar consolidation likely atelectasis. 4. Heterogeneous enlarged liver with minimal ascites. Titus Arevalo MD Abdomen Ultrasound 10/21/16 0000 Signed Impressions: Service Date/Time: Friday, October 21, 2016 09:56 - CONCLUSION: Small volume of ascites. Shawn Hopper MD Chest X-Ray 10/20/16 1312 Signed Impressions: Service Date/Time: Thursday, October 20, 2016 13:13 - CONCLUSION: 1. Cardiomegaly with mild pulmonary vascular engorgement but no interstitial or intra-alveolar pulmonary edema observed. Gigi Farias Jr., MD Physical Exam HEENT: Pupils round and reactive to light; normocephalic; atraumatic; no jaundice. NECK: Neck is supple, no JVD, no lymphadenopathy. CHEST: Chest is clear to auscultation and percussion. CARDIAC: Regular rate and rhythm with no murmur gallop or rubs. ABDOMEN: Soft, obese, nondistended, nontender; hepatosplenomegaly; bowel sounds are present in all four quadrants. EXTREMITIES: No clubbing, cyanosis, or edema. SKIN: Normal; no rash; no jaundice. COFFEE BREWER: No focal deficits; alert and oriented times three. (Amnancy,Shellie GOLF BALL INSPECTOR) Assessment and Plan Plan - Worsening LFTs- LFTs trending down. CT negative for biliary involvement. This is likely combination of alcoholic hepatitis, cirrhosis, and congested liver Abdomen Ultrasound 10/21/16 Small volume of ascites, fatty liver, occasional abd fluid, mild splenomegaly, gallstone. Patient cont to drink 2 beers a day. - Alcoholic Cirrhosis- liver bx on (07/24/15) showed liver cirrhosis, he cont to drink 2 beers a day. Our records indicate patient had EGD/colonoscopy on (07/29/15) and was recommended a repeat in one year for polyps and esophageal varices. - hx of esophagea varices- he is on BB, needs EGD - Diarrhea since yesterday- stools (-) for C-diff - Chest pain- Resolved. S/p cardiology eval and recommendation for medical management - hx of CHF, CAD with a CABG 20 years ago, Ischemic cardiomyopathy myopathy with the AICD/pacemaker replaced April 2015, Plan: - Low salt diet - Patient ok to DC home from GI stand point - F/u with GI in 2 weeks - Alcohol cessation strongly advised - He is due for EGD/colonoscopy but this could be done as an OP, patient was made aware of this - Supportive care - Patient seen and examined by and myself and this note is written on his behalf. (Shellie Genao) Physician Comments Patient seen and examined Agree with above Continue with current supportive care Monitor labs (Linus Gamble MD) Shellie Genao Oct 23, 2016 10:04 Linus Gamble MD Oct 23, 2016 22:16
--- NOTE | 2016-10-23 10:09 | HHI.DCPOC ---
Discharge Care Plan Diagnosis: (1) Acute hyponatremia (2) Elevated liver enzymes (3) Systolic heart failure secondary to coronary artery disease (4) COPD (chronic obstructive pulmonary disease) Your Health Problems Are: Leg Swelling Fluid/Lung Overload Shortness of Breath Goals to Promote Your Health * To prevent worsening of your condition and complications * To maintain your health at the optimal level Directions to Meet Your Goals Take your medications as prescribed Follow your dietary instruction Follow activity as directed Keep your appointments as scheduled Take your immunizations and boosters as scheduled If your symptoms worsen call your PCP, if no PCP go to Urgent Care Center or Emergency Room Smoking is Dangerous to Your Health. Avoid second hand smoke Call the 24-hour hour crisis hotline for domestic abuse at Hiram Reyes MD Oct 23, 2016 10:09
--- NOTE | 2016-10-23 10:34 | HHI.DS ---
Discharge Summary Admission Date Oct 20, 2016 at 15:39 Discharge Date: Oct 23, 2016 Admitting Diagnosis CP R/O DE, HYPONATREMIA, POSSIBLE HYPOTHYROID (1) Chest pain ICD Code: R07.9 Diagnosis: Secondary (2) CAD (coronary artery disease) ICD Code: I25.10 Diagnosis: Secondary (3) COPD (chronic obstructive pulmonary disease) ICD Code: J44.9 Diagnosis: Secondary (4) Ischemic cardiomyopathy ICD Code: I25.5 Diagnosis: Secondary (5) Hx of CABG ICD Code: Z95.1 Diagnosis: Secondary (6) Acute hyponatremia ICD Code: E87.1 Diagnosis: Principal (7) Systolic heart failure, chronic ICD Code: I50.22 Diagnosis: Secondary (8) Type 2 diabetes mellitus with hyperglycemia ICD Code: E11.65 Diagnosis: Secondary (9) Alcoholic cirrhosis ICD Code: K70.30 Procedures EGD and colonoscopy outpatient per GI. Brief History - From Admission Patient is a 65-year-old white male being admitted for chest pain and chest tightness. Patient will resume his usual state of health until 3 days ago when he began experiencing an insidious onset of substernal chest pain. Pain was intermittent in its nature and fluctuating in intensity up to 7 out of 10 at worst. Pain was initially very tolerable in the beginning days but became more frequent and more intense, reaching a 7 out of 10 today shortly after lunch which prompted the patient to call the ambulance. Describes the pain as sharp, was relieved by taking nitroglycerin at home today, and further relieved after being given nitroglycerin the ED again. The past few days he also reports having some intermittent nausea without vomiting, did have at least 2 watery bowel movements without any blood that have now resolved with some OTC antidiarrheals. Does report some mild abdominal soreness. Sisters also present with him and states that he appeared somewhat mentally slower than usual but not confused, now is better. Patient reports that he's felt weaker overall in the past few days but denies any fevers or chills. He denies any worsening lower extremity edema, or worsening of his chronic dry cough. Reports being compliant with his medications, especially with his baby aspirin, atorvastatin, and his bumex. Had his entresto discontinued on recent hospitalization due to hypotension. Abnormal labs in the ED showed a sodium of 120 and elevated AST and ALK phos on 100s. H&H was unremarkable. EKG shows no new acute changes, patient has defibrillator in place. Was recently seen by cardiology last month, deemed not to be a revascularization candidate. Ischemic cardiomyopathy with EF 25% on last MPI. Hx of ETOH hepatitis. Pt states he drinks "plenty of water" daily along with 2 beers daily. CBC/BMP: 10/20/16 1335 10/23/16 0550 Significant Findings Laboratory Tests Test 10/20/16 10/20/16 10/21/16 10/21/16 13:35 15:25 03:23 20:56 Red Blood Count 3.81 MIL/MM3 (4.50-5.90) Hemoglobin 12.1 GM/DL (13.0-17.0) Hematocrit 36.7 % (39.0-51.0) Neutrophils (%) (Auto) 70.9 % (16.0-70.0) Monocytes (%) (Auto) 11.1 % (0.0-8.0) Prothrombin Time 12.9 SEC (9.8-11.6) Activated Partial 31.3 SEC Thromboplast Time (24.3-30.1) Sodium Level 120 MEQ/L 125 MEQ/L (136-145) (136-145) Chloride Level 83 MEQ/L 87 MEQ/L (98-107) (98-107) Random Glucose 115 MG/DL (74-106) Calcium Level 8.1 MG/DL 8.3 MG/DL (8.5-10.1) (8.5-10.1) Total Bilirubin 1.5 MG/DL 2.0 MG/DL (0.2-1.0) (0.2-1.0) Aspartate Amino Transf 115 U/L (15-37) 121 U/L (15-37) (AST/SGOT) Alkaline Phosphatase 122 U/L 129 U/L (45-117) (45-117) Creatine Kinase MB 4.4 NG/ML (0.5-3.6) B-Type Natriuretic Peptide 912 PG/ML (0-100) Albumin 3.1 GM/DL 3.1 GM/DL (3.4-5.0) (3.4-5.0) Thyroid Stimulating Hormone 5.360 uIU/ML 3rd Gen (0.358-3.740) Urine Protein 100 mg/dL (NEG-TRACE) Urine Mucus FEW /lpf (OCC) Lactate Dehydrogenase 301 U/L (87-241) Test 10/22/16 10/22/16 10/23/16 05:49 08:45 05:50 Sodium Level 127 MEQ/L 124 MEQ/L (136-145) (136-145) Chloride Level 90 MEQ/L 87 MEQ/L (98-107) (98-107) Estimat Glomerular Filtration 86 ML/MIN (>89) Rate Random Glucose 187 MG/DL 156 MG/DL (74-106) (74-106) Total Bilirubin 2.0 MG/DL 1.3 MG/DL (0.2-1.0) (0.2-1.0) Aspartate Amino Transf 157 U/L (15-37) 132 U/L (15-37) (AST/SGOT) Alanine Aminotransferase 87 U/L (12-78) (ALT/SGPT) Alkaline Phosphatase 139 U/L 120 U/L (45-117) (45-117) Total Protein 8.4 GM/DL (6.4-8.2) Albumin 3.2 GM/DL 3.2 GM/DL (3.4-5.0) (3.4-5.0) Prothrombin Time 13.3 SEC (9.8-11.6) Ammonia 54 MCMOL/L (11-32) Potassium Level 6.5 MEQ/L (3.5-5.1) Blood Urea Nitrogen 26 MG/DL (7-18) Imaging Last Impressions Abdomen CT 10/22/16 0000 Signed Impressions: Service Date/Time: September 16:18 - CONCLUSION: 1. Enlarged nodular liver with diffuse decreased attenuations consistent with cirrhosis. 2. Cholelithiasis. 3. Uncomplicated colonic diverticulosis. 4. 14 mm upper pole left renal cyst which is mildly complex but relatively stable in size. 5. Tiny simple cysts within the lower pole of the left kidney. 6. Tiny bilateral pleural effusions. Damian Davila MD CT Angiography 10/21/16 0000 Signed Impressions: Service Date/Time: Friday, October 21, 2016 18:50 - CONCLUSION: 1. Cardiomegaly with tiny pleural effusions. 2. No evidence for pulmonary embolism. 3. Minimal bibasilar consolidation likely atelectasis. 4. Heterogeneous enlarged liver with minimal ascites. Titus Arevalo MD Abdomen Ultrasound 10/21/16 0000 Signed Impressions: Service Date/Time: Friday, October 21, 2016 09:56 - CONCLUSION: Small volume of ascites. Shawn Hopper MD Chest X-Ray 10/20/16 1312 Signed Impressions: Service Date/Time: Thursday, October 20, 2016 13:13 - CONCLUSION: 1. Cardiomegaly with mild pulmonary vascular engorgement but no interstitial or intra-alveolar pulmonary edema observed. Gigi Farias Jr., MD PE at Discharge Vital signs reviewed, appear normotensive, stable, afebrile, normal pulse Gen.: No acute distress Respiratory: Clear to auscultation bilaterally, good breath sounds Cardiovascular: Regular rate and rhythm, no murmurs Abdomen: Soft, mildly distended, nontender to palpation Extremities: No clubbing cyanosis nor edema Musculoskeletal: Grossly intact range of motion of all 4 extremities Pt update on day of discharge Patient states he feels good, is breathing really well as he was at home. Says his diarrhea improved with Imodium. Hospital Course Patient was initially admitted to the regular floor with chest pain and acute hyponatremia, which trended negative with troponins as chest pain resolved. Patient was noted to get hypoxic with increased O2 demand up to [address] pulmonary angiogram was negative for pulmonary embolism, patient was subsequently treated for COPD exacerbation which significantly improved over the next 24 hours with steroids and the patient's hypoxia resolved and was saturating well on room air. Patient's sertraline and home diuretics were held and the patient was otherwise treated with fluid restriction which improved his hyponatremia substantially. Cardiology was consulted and they recommended patient returning back to his home low dose and Restoril and getting back on low -dose diuretics to fluid overload. Meanwhile the patient's liver enzymes have been trending up since admission, liver and gallbladder ultrasounds were obtained which were overall unremarkable except for chronic cirrhotic changes of the liver . LFTs continue to trend upward so gastroenterology was consulted and obtained a CT of the abdomen which showed chronic liver changes with no signs of any focal obstruction. Patient's last sodium level plateaued at 124. Patient was informed that he might have a new chronically low sodium that he would have to partially manages himself by fluid restricting himself with a low- sodium diet to minimize worsening of his chronic heart failure. Patient was also educated that he needed to ultimately stopped drinking alcohol to minimize any further damage to his liver and also to optimize his cardiac status as well. Patient did have a few runs of V. tach but he had an ICD so no further intervention was needed. Patient has met maximum benefit from hospitalization and is clinically stable for discharge. He will be switched over from his home Bumex to furosemide, restarted on entresto, and will take a tapering dose of prednisone. He will need EGD/colonoscopy with GI outpatient. Pt Condition on Discharge: Stable Discharge Disposition: Discharge Home Discharge Time: > 30 minutes Discharge Instructions DIET: Follow Instructions for: Heart Healthy Diet Additional Diet Instructions: low sodium less than 2 g daily. Fluid Restrictions: 1200 mL per day Activities you can perform: Regular-No Restrictions Follow up Referrals: Cardiology - 2 Weeks with Matt Davenport MD Gastroenterology - 1 Month with Linus Gamble MD PCP Follow-up - 3-5 Days New Medications: Albuterol 18 GM Inh (Ventolin Hfa 18 GM Inh) 90 Mcg/Act Aer 2 PUFF INH Q4H PRN SHORTNESS OF BREATH #1 Ref 0 INHALER Furosemide (Furosemide) 20 Mg Tab 20 MG PO DAILY CHF #30 Ref 0 TAB Prednisone (21) 10 mg tab Dose Pack (Prednisone (21) 10 mg tab Dose Pack) 10 Mg Pack 10 MG PO DIRECTED Inflammation #1 Ref 0 DSPK Loperamide HCl (Hm Loperamide HCl) 2 Mg Cap 2 MG PO Q6H PRN loose stools #30 CAP Sacubitril-Valsartan (Entresto) 24-26 Mg Tab 1 TAB PO BID heart failure #60 Ref 0 TAB Continued Medications: Aspirin (Aspirin) 81 Mg Chew 81 MG CHEW DAILY Ref 0 TAB Atorvastatin (Atorvastatin) 40 Mg Tab 40 MG PO DAILY Cholesterol Management #30 Ref 0 TAB Cholecalciferol (D3) 1,000 Unit Tab 1000 UNITS PO DAILY Dulaglutide Inj (Trulicity Inj) 0.75 Mg/0.5 Ml Pen 0.75 MG SQ Q7D ON TUESDAYS Blood Sugar Management #4 Ref 0 PEN Fluticasone Nasal [place] (Flonase Nasal [place]) 50 Mcg/Act [place] 2 SPRAY EACH NARE DAILY Allergies BOTTLE Insulin Degludec Inj (Tresiba Flextouch Pen Inj) 300 unit/3 ML Pen 10 UNITS SQ DAILY Blood Sugar Management #15 Ref 0 ML Ipratropium-Albuterol Inh (Combivent Respimat Inh) 20-100 Intermediate/Act Aero 2 PUFF INH BID Asthma Management INHALER Isosorbide Mononitrate ER (Isosorbide Mononitrate ER) 30 Mg Scotty 30 MG PO DAILY Prevent Chest Pain #30 Ref 0 TAB Ketotifen Opth Drops (ZyrTEC Itchy Eye Opth Drops) 0.025% Drops 1 DROP EACH EYE DAILY ALLERGIES Ref 0 BOTTLE Nitroglycerin SL (Nitroglycerin SL) 0.4 Mg Subl 0.4 MG SL DIRECTED ONE TABLET UNDER THE TONGUE NEEDED FOR CHEST PAIN, MAY REPEAT EVERY FIVE MINUTES FOR A TOTAL OF 3 DOSES OR CALL 911 IF NO RELIEF CHEST PAIN TAB.SL Sotalol (Sotalol) 80 Mg Tab 80 MG PO BID Regulate Heart Beat #60 Ref 0 TAB Thiamine (B-1) 250 Mg Tab 250 MG PO DAILY Nutritional Supplement Ref 0 TAB Discontinued Medications: Bumetanide (Bumetanide) 0.5 Mg Tab 0.5 MG PO DAILY Ref 0 TAB Sertraline (Sertraline) 50 Mg Tab 50 MG PO DAILY #30 Ref 0 TAB Hiram Reyes MD Oct 23, 2016 10:33
--- NOTE | 2016-10-23 11:57 | PD.CONS ---
Consult Service Palliative Care Consult Requested By Cardiology. [facility] Primary Care Physician Venice Mota MD Reason for Consultation a. To assist with evaluation and management of symptoms including:dyspnea b. To assist medical decision maker(s) with: better understanding of current medical conditions; weighing benefits/burdens of medical treatment options; making medical treatment decisions. HPI History of Present Illness Patient is a 65-year-old with a past medical history significant for alcoholic cirrhosis, ischemic cardiomyopathy(EF of 25%), HTN, DM, COPD that came in to [facility] for chest pain and chest tightness on 10/20/2016. Patient began experiencing substernal chest pain, that is sharp with pain that is intermittent in nature and fluctuating intensity, up to 10/05. As the day progressed pain became more intolerable and patient requests ambulance. In the ER: * Sodium is 140, potassium 3.8, chloride is 83, bicarbonate is 23.1, BUN is 8, creatinine 0.76 * AST 1:15, ALT 60, alkaline phosphatase is 122 * Troponin I 0.05. Serial enzymes were ordered and it was 0.03 and 0.04 * BNP is 912 * Albumin is 3.1 and TSH is 5.36 * WBC is 8.5, hemoglobin is 12.1, hematocrit is 36.7, platelets 156 * UA is negative for nitrite and leukocyte esterase, and cultures not indicated. * Chest x-ray shows cardiomegaly with mild pulmonary vascular engorgement but no interstitial and try a vehicle or pulmonary edema observed.. * CTA showed cardiomegaly with tiny pleural effusion. No evidence of PE. * Cardiology review EKG shows no acute changes. Patient was admitted and cardiology was consulted, and recommended medical management. Cardiology stated that patient has end-stage heart disease and gentleman is not a candidate for coronary intervention. GI was consulted and followed due to alcoholic cirrhosis (confirmed by liver bix on 07/24/2015). Pt is due for EGD/ colonosocpy can be done as outpatient. Recommend continue supportive care. Abdominal US show Fatty liver. Abdominal CT show enlarged nodular liver, with diffuse decreased attenuation consistent with cirrhosis. There is cholelithiasis. Call. Colonic diverticulosis. There is a 14 mm upper pole left renal cysts. Cardiology continue to follow, and pt condition continues to be complicated by weakness, fatigued, dyspnea. Given ES cardiac disease, and worsening functional status, cardiology consulted palliative care to review goals of care with patient. Function/Cognitive Trajectory EF on June 2016 is 20-25%. Has underlying liver cirrohosis. Not a candidate for aggressive cardiac intervention. Review of Systems ROS Limitations: Clinical Condition Past Family Social History Coded Allergies: No Known Allergies (Unverified , 09/07/16) Past Medical History CAD with a CABG 20 years ago. 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 Hyperlipidemia, diabetes, ventricular tachycardia, peripheral vascular disease, CHF Past Surgical History Coronary artery bypass grafting . He has had heart catheterizations. He has had ablations. Stents in his legs. He has a AICD/pacemaker. Hernia repair. EGD/colonoscopy Reported Medications Bumetanide 0.5 Mg Tab 0.5 Mg PO DAILY Aspirin 81 Mg Chew 81 Mg CHEW DAILY B-1 (Thiamine HCl) 250 Mg Tab 250 Mg PO DAILY Tresiba Flextouch Pen Inj (Insulin Degludec Inj) 300 unit/3 ML Pen 10 Units SQ DAILY Trulicity Inj (Dulaglutide Inj) 0.75 Mg/0.5 Ml Pen 0.75 Mg SQ Q7D ON TUESDAYS Sotalol (Sotalol HCl) 80 Mg Tab 80 Mg PO BID Sertraline (Sertraline HCl) 50 Mg Tab 50 Mg PO DAILY ZyrTEC Itchy Eye Opth Drops (Ketotifen Opth Drops) 0.025% Drops 1 Drop EACH EYE DAILY Atorvastatin (Atorvastatin Calcium) 40 Mg Tab 40 Mg PO DAILY D3 (Cholecalciferol) 1,000 Unit Tab 1,000 Units PO DAILY Flonase Nasal [place] (Fluticasone Nasal [place]) 50 Mcg/Act [place] 2 [place] EACH NARE DAILY Nitroglycerin SL (Nitroglycerin) 0.4 Mg Subl 0.4 Mg SL DIRECTED ONE TABLET UNDER THE TONGUE NEEDED FOR CHEST PAIN, MAY REPEAT EVERY FIVE MINUTES FOR A TOTAL OF 3 DOSES OR CALL 911 IF NO RELIEF Combivent Respimat Inh (Ipratropium-Albuterol Inh) 20-100 Jail/Act [place] 2 Puff INH BID Current Medications Medications (Trade) Dose Ordered Sig/Yakelin Route Start Time Stop Time Status Last Admin (Lovenox Inj) 40 mg Q24H SQ 10/20/16 17:00 10/22/16 17:05 (Narcan Inj) 0.4 mg UNSCH PRN IV 10/20/16 16:15 (Caty-Colace) 1 tab BID PO 10/20/16 21:00 10/23/16 09:50 (Milk Of Magnesia Liq) 30 ml Q12H PRN PO 10/20/16 16:15 (Senokot) 17.2 mg Q12H PRN PO 10/20/16 16:15 (Dulcolax Supp) 10 mg DAILY PRN RECTAL 10/20/16 16:15 (Lactulose Liq) 30 ml DAILY PRN PO 10/20/16 16:15 (NS Flush) 2 ml UNSCH PRN IV FLUSH 10/20/16 16:15 10/23/16 02:21 (NS Flush) 2 ml BID IV FLUSH 10/20/16 21:00 10/22/16 20:56 (Lipitor) 40 mg DAILY PO 10/21/16 09:00 10/23/16 09:49 (Vitamin D3) 1,000 units DAILY PO 10/21/16 09:00 10/22/16 08:49 (Betapace) 80 mg BID PO 10/20/16 21:00 10/23/16 09:49 (Aspirin) 325 mg DAILY PO 10/21/16 09:00 10/23/16 09:50 (Levemir Inj) 10 units HS SQ 10/20/16 21:00 10/22/16 20:58 (D50w (Vial) Inj) 50 ml UNSCH PRN IV 10/20/16 17:30 (Glucagon Inj) 1 mg UNSCH PRN OTHER 10/20/16 17:30 (Vitamin B1) 250 mg DAILY PO 10/21/16 09:00 10/23/16 09:50 (Pill Splitter) 1 ea UNSCH PRN OTHER 10/20/16 18:45 (Librium) 5 mg BID PO 10/20/16 21:00 10/23/16 09:49 Patient Own Medication PT OWN MED: COMBIV... BID INH 10/20/16 21:00 Hold Patient Own Medication POM:KETOTIFEN OPTH MARIA D--1 DROP EACH ... DAILY EACH EYE 10/21/16 09:00 Hold (Tylenol) 650 mg Q4H PRN PO 10/21/16 16:00 10/22/16 19:40 (SoluMEDROL INJ) 60 mg Q8H IV PUSH 10/22/16 11:00 10/23/16 02:20 (Entresto 24-26 Mg) 1 tab BID PO 10/22/16 10:15 10/23/16 09:49 (Imodium) 2 mg Q6H PRN PO 10/22/16 17:30 10/22/16 19:40 Family History Fhx of CAD Substance Use Tobacco: No(quit 2 years ago) Alcohol: 2 beers per day Prescription med abuse: No Illicits: No Spiritual/Cultural Factors None was listed Physical Exam Vital Signs Date Time Temp Pulse Resp B/P Pulse Ox O2 Delivery O2 Flow Rate FiO2 10/23/16 09:35 95 21 10/23/16 09:00 Room Air 10/23/16 08:00 97.9 74 20 126/72 94 10/23/16 04:00 97.7 70 20 116/90 93 10/23/16 00:00 98.0 74 20 116/71 94 10/22/16 20:06 98.7 79 18 113/71 95 10/22/16 20:00 73 10/22/16 20:00 Room Air 10/22/16 16:00 98.0 80 18 128/71 94 10/22/16 12:00 97.9 82 18 128/71 94 10/22/16 10/23/16 19:00 07:00 Intake Total 480 ml 600 ml Output Total 500 ml Balance 480 ml 100 ml Intake Oral 480 ml 600 ml Output Urine Total 500 ml # Voids 2 3 # Bowel Movements 3 0 Exam Draft CONSTITUTIONAL/GENERAL: This is an adequately nourished patient, in no apparent distress. TUBES/LINES/DRAINS: SKIN: No jaundice, rashes, or lesions. Ecchymoses on upper extremities. No wounds seen anteriorly. Skin temperature appropriate. Not diaphoretic. HEAD: Atraumatic. Normocephalic. EYES: Pupils equal and round and reactive. Extraocular motions intact. No scleral icterus. No injection or drainage. Fundi not examined. ENT: Hearing grossly normal. Nose without bleeding or purulent drainage. Throat without visible erythema, exudates, masses, or lesions. NECK: Trachea midline. Supple, nontender. No palpable thyroid enlargement or nodularity. CARDIOVASCULAR: Regular rate and rhythm without murmurs, gallops, or rubs. No JVD. Peripheral pulses symmetric. RESPIRATORY/CHEST: Symmetric, unlabored respirations. Clear to auscultation. Breath sounds equal bilaterally. No wheezes, rales, or rhonchi. GASTROINTESTINAL: Abdomen soft, non-tender, nondistended. No hepato-splenomegaly , or palpable masses. No guarding. Bowel sounds present. GENITOURINARY: Without palpable bladder distension. Murray catheter in place. MUSCULOSKELETAL: Extremities without clubbing, cyanosis, or edema. No joint tenderness or effusion noted. No calf tenderness. No mottling or clubbing. LYMPHATICS: No palpable cervical or supraclavicular adenopathy. NEUROLOGICAL: Awake and alert. Motor and sensory grossly within normal limits. Follows commands. Cognitively sharp. Moves all extremities. PSYCHIATRIC: No obvious anxiety/depression. no apparent hallucinations or other psychotic thought process. Diagnostic Tests Laboratory Laboratory Tests Test 10/20/16 10/20/16 10/20/16 10/21/16 13:35 15:25 20:25 03:23 White Blood Count 8.5 TH/MM3 (4.0-11.0) Red Blood Count 3.81 MIL/MM3 (4.50-5.90) Hemoglobin 12.1 GM/DL (13.0-17.0) Hematocrit 36.7 % (39.0-51.0) Mean Corpuscular Volume 96.3 FL (80.0-100.0) Mean Corpuscular Hemoglobin 31.7 PG (27.0-34.0) Mean Corpuscular Hemoglobin 32.9 % Concent (32.0-36.0) Red Cell Distribution Width 16.8 % (11.6-17.2) Platelet Count 159 TH/MM3 (150-450) Mean Platelet Volume 9.1 FL (7.0-11.0) Neutrophils (%) (Auto) 70.9 % (16.0-70.0) Lymphocytes (%) (Auto) 14.8 % (9.0-44.0) Monocytes (%) (Auto) 11.1 % (0.0-8.0) Eosinophils (%) (Auto) 2.4 % (0.0-4.0) Basophils (%) (Auto) 0.8 % (0.0-2.0) Neutrophils # (Auto) 6.0 TH/MM3 (1.8-7.7) Lymphocytes # (Auto) 1.3 TH/MM3 (1.0-4.8) Monocytes # (Auto) 0.9 TH/MM3 (0-0.9) Eosinophils # (Auto) 0.2 TH/MM3 (0-0.4) Basophils # (Auto) 0.1 TH/MM3 (0-0.2) CBC Comment DIFF FINAL Differential Comment Prothrombin Time 12.9 SEC (9.8-11.6) Prothromb Time International 1.2 RATIO Ratio Activated Partial 31.3 SEC Thromboplast Time (24.3-30.1) Sodium Level 120 MEQ/L 125 MEQ/L (136-145) (136-145) Potassium Level 3.8 MEQ/L 4.1 MEQ/L (3.5-5.1) (3.5-5.1) Chloride Level 83 MEQ/L 87 MEQ/L (98-107) (98-107) Carbon Dioxide Level 23.1 MEQ/L 28.5 MEQ/L (21.0-32.0) (21.0-32.0) Anion Gap 14 MEQ/L (5-15) 10 MEQ/L (5-15) Blood Urea Nitrogen 8 MG/DL (7-18) 10 MG/DL (7-18) Creatinine 0.76 MG/DL 0.67 MG/DL (0.60-1.30) (0.60-1.30) Estimat Glomerular Filtration 104 ML/MIN 120 ML/MIN Rate (>89) (>89) Random Glucose 115 MG/DL 97 MG/DL (74-106) (74-106) Calcium Level 8.1 MG/DL 8.3 MG/DL (8.5-10.1) (8.5-10.1) Total Bilirubin 1.5 MG/DL 2.0 MG/DL (0.2-1.0) (0.2-1.0) Aspartate Amino Transf 115 U/L (15-37) 121 U/L (15-37) (AST/SGOT) Alanine Aminotransferase 68 U/L (12-78) 66 U/L (12-78) (ALT/SGPT) Alkaline Phosphatase 122 U/L 129 U/L (45-117) (45-117) Total Creatine Kinase 139 U/L (39-308) Creatine Kinase MB 4.4 NG/ML (0.5-3.6) Troponin I 0.05 NG/ML 0.03 NG/ML 0.04 NG/ML (0.02-0.05) (0.02-0.05) (0.02-0.05) B-Type Natriuretic Peptide 912 PG/ML (0-100) Total Protein 8.0 GM/DL 7.7 GM/DL (6.4-8.2) (6.4-8.2) Albumin 3.1 GM/DL 3.1 GM/DL (3.4-5.0) (3.4-5.0) Lipase 331 U/L (73-393) Thyroid Stimulating Hormone 5.360 uIU/ML 3rd Gen (0.358-3.740) Urine Color YELLOW (YELLW/STRAW) Urine Turbidity CLEAR (CLEAR) Urine pH 5.5 (5.0-8.5) Urine Specific [place] 1.014 (1.002-1.035) Urine Protein 100 mg/dL (NEG-TRACE) Urine Glucose (UA) NEG mg/dL (NEG) Urine Ketones NEG mg/dL (NEG) Urine Occult Blood NEG (NEG) Urine Nitrite NEG (NEG) Urine Bilirubin NEG (NEG) Urine Urobilinogen LESS THAN 2.0 MG/DL (LESS THAN 2.0) Urine Leukocyte Esterase NEG (NEG) Urine RBC LESS THAN 1 /hpf (0-3) Urine WBC 1 /hpf (0-5) Urine Squamous Epithelial 1 /hpf (0-5) Cells Urine Hyaline Casts 22 /lpf (RARE) Urine Mucus FEW /lpf (OCC) Microscopic Urinalysis Comment CULT NOT INDICATED Urine Osmolality 312 MOSM/KG (300-1300) Urine Random Sodium LESS THAN 5 MEQ/L Test 10/21/16 10/22/16 10/22/16 10/22/16 20:56 05:49 08:45 15:30 Lactate Dehydrogenase 301 U/L (87-241) Total Protein 7.7 GM/DL 8.4 GM/DL (6.4-8.2) (6.4-8.2) Sodium Level 127 MEQ/L (136-145) Potassium Level 4.3 MEQ/L (3.5-5.1) Chloride Level 90 MEQ/L (98-107) Carbon Dioxide Level 25.6 MEQ/L (21.0-32.0) Anion Gap 11 MEQ/L (5-15) Blood Urea Nitrogen 17 MG/DL (7-18) Creatinine 0.89 MG/DL (0.60-1.30) Estimat Glomerular Filtration 86 ML/MIN (>89) Rate Random Glucose 187 MG/DL (74-106) Calcium Level 8.5 MG/DL (8.5-10.1) Total Bilirubin 2.0 MG/DL (0.2-1.0) Aspartate Amino Transf 157 U/L (15-37) (AST/SGOT) Alanine Aminotransferase 87 U/L (12-78) (ALT/SGPT) Alkaline Phosphatase 139 U/L (45-117) Albumin 3.2 GM/DL (3.4-5.0) Prothrombin Time 13.3 SEC (9.8-11.6) Prothromb Time International 1.2 RATIO Ratio Ammonia 54 MCMOL/L (11-32) Free Thyroxine 0.97 NG/DL (0.76-1.46) Stool C. difficile Toxin (PCR) NEGATIVE (NEGATIVE) Stl C. difficile Toxin PRESUMPTIVE Epiderm 027 NEGATIVE (NEGATIVE) Test 10/23/16 05:50 Sodium Level 124 MEQ/L (136-145) Potassium Level 6.5 MEQ/L (3.5-5.1) Chloride Level 87 MEQ/L (98-107) Carbon Dioxide Level 24.3 MEQ/L (21.0-32.0) Anion Gap 13 MEQ/L (5-15) Blood Urea Nitrogen 26 MG/DL (7-18) Creatinine 0.85 MG/DL (0.60-1.30) Estimat Glomerular Filtration 91 ML/MIN (>89) Rate Random Glucose 156 MG/DL (74-106) Calcium Level 8.5 MG/DL (8.5-10.1) Total Bilirubin 1.3 MG/DL (0.2-1.0) Aspartate Amino Transf 132 U/L (15-37) (AST/SGOT) Alanine Aminotransferase 76 U/L (12-78) (ALT/SGPT) Alkaline Phosphatase 120 U/L (45-117) Total Protein 8.2 GM/DL (6.4-8.2) Albumin 3.2 GM/DL (3.4-5.0) Result Diagram: 10/20/16 1335 10/23/16 0550 Imaging Last Impressions Abdomen CT 10/22/16 0000 Signed Impressions: Service Date/Time: September 16:18 - CONCLUSION: 1. Enlarged nodular liver with diffuse decreased attenuations consistent with cirrhosis. 2. Cholelithiasis. 3. Uncomplicated colonic diverticulosis. 4. 14 mm upper pole left renal cyst which is mildly complex but relatively stable in size. 5. Tiny simple cysts within the lower pole of the left kidney. 6. Tiny bilateral pleural effusions. Damian Davila MD CT Angiography 10/21/16 0000 Signed Impressions: Service Date/Time: Friday, October 21, 2016 18:50 - CONCLUSION: 1. Cardiomegaly with tiny pleural effusions. 2. No evidence for pulmonary embolism. 3. Minimal bibasilar consolidation likely atelectasis. 4. Heterogeneous enlarged liver with minimal ascites. Titus Arevalo MD Abdomen Ultrasound 10/21/16 0000 Signed Impressions: Service Date/Time: Friday, October 21, 2016 09:56 - CONCLUSION: Small volume of ascites. Shawn Hopper MD Chest X-Ray 10/20/16 1312 Signed Impressions: Service Date/Time: Thursday, October 20, 2016 13:13 - CONCLUSION: 1. Cardiomegaly with mild pulmonary vascular engorgement but no interstitial or intra-alveolar pulmonary edema observed. Gigi Farias Jr., MD Patient/Family Conference Issues Discussed: * Palliative care role, purpose, approach * Additional medical, psychosocial, and spiritual history * Patients general health, functional status, and cognitive changes in the months leading up to the current hospitalization * Patient/family understanding of the current medical problems * Patient/family understanding of prognosis * Patients goals of care as best understood from advance directives and/or conversations and/or values * Current medical treatment options and benefits/burdens of those options * Likely scenarios comparing ongoing aggressive care with a transition to comfort measures only * Questions answered to the best of my ability * Palliative care contact information provided Assessment and Plan Pertinent Non-Medical Issues Psychosocial: Spiritual: Legal: Ethical issues impacting care: Thank you for the opportunity to participate in the care of Mr. Sutherland. Attestation To help prompt me to consider important information that might be impacting today's encounter and assessment, information from prior notes written by myself or my colleagues may have been "brought forward" into today's note. My signature on this note, however, is an attestation that I personally performed the exam, history, and/or decision-making noted today, and, unless otherwise indicated, the interactions with patient, family, and staff as well as the review of records all occurred today. I also attest that the listed assessment and stated plan reflect my best clinical judgment today based on the combination of historical information, prior notes, and today's exam/ interactions. When time spent is documented, it refers only to time spent today by the signer, or if indicated, combined time spent today by collaborating physician/nurse practitioner. Jorge Walker MD Oct 23, 2016 11:57
== END 2016-10-23 11:56 | disposition home or self-care (01) | DRG 191 ==
LOC: NEPE 13:01 → NEDA 15:39 → N04A 20:34
PROVIDERS: ADMIT Family Medicine; ATTEND Family Medicine
DX: J44.1 Chronic obstructive pulmonary disease with (acute) exacerbation (principal); I47.2 Ventricular tachycardia; E11.51 Type 2 diabetes mellitus with diabetic peripheral angiopathy without gangrene; E22.2 Syndrome of inappropriate secretion of antidiuretic hormone; I11.0 Hypertensive heart disease with heart failure; R16.1 Splenomegaly, not elsewhere classified; I48.91 Unspecified atrial fibrillation; I50.22 Chronic systolic (congestive) heart failure; R07.9 Chest pain, unspecified; I25.10 Atherosclerotic heart disease of native coronary artery without angina pectoris; K70.31 Alcoholic cirrhosis of liver with ascites; K70.11 Alcoholic hepatitis with ascites; E03.9 Hypothyroidism, unspecified; E78.00 Pure hypercholesterolemia, unspecified; F41.9 Anxiety disorder, unspecified; F32.9 Major depressive disorder, single episode, unspecified; G47.30 Sleep apnea, unspecified; Z95.810 Presence of automatic (implantable) cardiac defibrillator; Z95.5 Presence of coronary angioplasty implant and graft; Z95.1 Presence of aortocoronary bypass graft; Z87.891 Personal history of nicotine dependence; I25.5 Ischemic cardiomyopathy; E78.5 Hyperlipidemia, unspecified; E11.65 Type 2 diabetes mellitus with hyperglycemia; K80.20 Calculus of gallbladder without cholecystitis without obstruction; R19.7 Diarrhea, unspecified; Z51.5 Encounter for palliative care
CPT/HCPCS: 71010; 71275; 74160; 76700; 76705; 80053; 81001; 82140; 82550; 82552; 82948; 83615; 83690; 83880; 83935; 84155; 84300; 84439; 84443; 84484; 85025; 85610; 85730; 87493; 93005; 94150; 94640; 94664; 96374; J1650; J1815; J1940; J2270; J2930; J7050; J7613; Q9967

== ENCOUNTER 2016-11-10 06:14 | Inpatient (IN) | payer OTHER, MEDICARE ==
[~2016-11-10] VITALS: Ht 172.7 cm; Wt 88.0 kg
[2016-11-10] VITALS (15 sets, daily range): BP systolic 110–192; BP diastolic 69–97; PULSE 72–118; RESP 17–30; TEMP 97.4–98.9; O2SAT 91–100
[~2016-11-10 06:14] MED LIST changes: -BUME0.5T PO; +FURO20TA PO; +LOPE2CAP92 PO; +PRED10PA PO; +SACU1TAB PO; -SERT-132 PO; +VENTAER INH
[2016-11-10] MEDS ORDERED: FUROSEMIDE 100 MG/10 ML VIAL IVP ONE (06:30)
[2016-11-10] MEDS: RESP: ALBUTEROL 2.5 MG/IPRATROPIUM 0.5 MG NEB (SCH) INH ×2 (06:35→06:36)
--- NOTE | 2016-11-10 06:44 | PD ---
HPI Chief Complaint: Respiratory Distress Time Seen by Provider: 06:17 Travel History International Travel<30 days: No Contact w/Intl Traveler<30days: No Traveled to known affect area: No History of Present Illness HPI The patient is a 66 year old male who presents to the [facility] emergency department with a history of chest pain and shortness of breath that he reports began yesterday. He reports that he tried to sleep to improve his symptoms, however at 1 AM he again awoke with shortness of breath and severe chest pain. The patient reports that he took one sublingual nitroglycerin prior to arrival and then also called ambulance services. The patient was given 2 additional sublingual nitroglycerin, aspirin and 162 mg by mouth 1. The patient's O2 saturation on room air was noted to be 89% upon ambulance services arrival. The patient was placed on a nonrebreather mask and transported to this facility. The patient has a known history of coronary artery disease, liver cirrhosis related to alcohol abuse, congestive heart failure related to an ischemic cardiomyopathy. 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 The patient has had an AICD and pacemaker placed. The patient reports that he quit smoking one year ago. He reports that he drinks 2 beers daily. On review of systems, he denies any known recent fevers, worsening cough, neck pain, abdominal pain, vomiting, diarrhea, urinary symptoms, or neurologic symptoms. FORMERLY [facility] Past Medical History Narrative Medical The patient's past medical history is significant for liver cirrhosis, coronary artery disease status post coronary artery bypass grafting, history of cardiac catheterization with stent placements, history of being diagnosed with an ischemic cardiomyopathy status post AICD and pacemaker placement, hyperlipidemia , diabetes mellitus, prior history of ventricular tachycardia, peripheral arterial disease, peripheral neuropathy, ascites with last paracentesis 7-8 months ago, prior history of tobacco abuse. Hx Anticoagulant Therapy: Yes (ASPIRIN) Arthritis: No Asthma: Yes Atrial Fibrillation: Yes Autoimmune Disease: No Blood Disorders: No Anxiety: Yes Depression: Yes Heart Rhythm Problems: Yes Cancer: No Cardiac Catheterization: Yes Cardiovascular Problems: Yes High Cholesterol: Yes Chemotherapy: No Chest Pain: Yes Congestive Heart Failure: Yes Cirrhosis: Yes COPD: Yes Cerebrovascular Accident: No Diabetes: Yes Patient Takes Glucophage: No Diminished Hearing: No Endocrine: Yes (Diabetes Mellitus) Gastrointestinal Disorders: Yes (ASCITES) GERD: No Glaucoma: No Genitourinary: Yes Headaches: Yes Hepatitis: No Hiatal Hernia: No Heparin Induced Thrombocytopen: No Hypertension: Yes Immune Disorder: No Implanted Vascular Access Dvce: Yes Kidney Stones: No Musculoskeletal: No Neurologic: Yes (tremors) Psychiatric: No Reproductive: No Respiratory: Yes Integumentary: No Immunizations Current: No Migraines: No Pneumonia: Yes Radiation Therapy: No Renal Failure: No Seizures: No Sickle Cell Disease: No Sleep Apnea: Yes Thyroid Disease: No Ulcer: No Influenza Vaccination: Yes Past Surgical History Narrative Surgical The patient's past surgical history is significant for cardiac catheterization with stent placement, bilateral lower extremity stent placements, coronary artery bypass grafting, cardiac ablation, AICD and pacemaker placement, hernia repair. Abdominal Surgery: Yes (hernia repair) AICD: Yes ([place]/PACER) Arteriovenous Shunt: No Body Medical Devices: STENTS TAYA [employer]GS [employer] HEART, DEFIBRILLATOR Coronary Artery Bypass Graft: Yes Coronary Stent: Yes (X3) Ear Surgery: No Endocrine Surgery: No Eye Surgery: No Genitourinary Surgery: No Gynecologic Surgery: No Insulin Pump: No Joint Replacement: No Neurologic Surgery: No Oral Surgery: No Pacemaker: Yes (AICD) Other Surgery: Yes (CABG, TAYA L.E. STENTS, AICD) Social History Alcohol Use: Yes (2 BEERS A DAY) Tobacco Use: No (QUIT A YEAR AGO ) Substance Use: No Allergies-Medications (Allergen,Severity, Reaction): Coded Allergies: No Known Allergies (Unverified , 11/10/16) Reported Meds & Prescriptions Reported Meds & Active Scripts Active Prednisone (21) 10 mg tab Dose Pack (Prednisone) 10 Mg Pack 10 Mg PO DIRECTED Ventolin Hfa 18 GM Inh (Albuterol Sulfate) 90 Mcg/Act Aer 2 Puff INH Q4H PRN Furosemide 20 Mg Tab 20 Mg PO DAILY Hm Loperamide HCl (Loperamide HCl) 2 Mg Cap 2 Mg PO Q6H PRN Entresto (Sacubitril-Valsartan) 24-26 Mg Tab 1 Tab PO BID Isosorbide Mononitrate ER (Isosorbide Mononitrate) 30 Mg Scotty 30 Mg PO DAILY Reported Aspirin 81 Mg Chew 81 Mg CHEW DAILY B-1 (Thiamine HCl) 250 Mg Tab 250 Mg PO DAILY Tresiba Flextouch Pen Inj (Insulin Degludec Inj) 300 unit/3 ML Pen 10 Units SQ DAILY Trulicity Inj (Dulaglutide Inj) 0.75 Mg/0.5 Ml Pen 0.75 Mg SQ Q7D ON TUESDAYS Sotalol (Sotalol HCl) 80 Mg Tab 80 Mg PO BID ZyrTEC Itchy Eye Opth Drops (Ketotifen Opth Drops) 0.025% Drops 1 Drop EACH EYE DAILY Atorvastatin (Atorvastatin Calcium) 40 Mg Tab 40 Mg PO DAILY D3 (Cholecalciferol) 1,000 Unit Tab 1,000 Units PO DAILY Flonase Nasal Bern (Fluticasone Nasal Bern) 50 Mcg/Act Bern 2 Bern EACH NARE DAILY Nitroglycerin SL (Nitroglycerin) 0.4 Mg Subl 0.4 Mg SL DIRECTED ONE TABLET UNDER THE TONGUE NEEDED FOR CHEST PAIN, MAY REPEAT EVERY FIVE MINUTES FOR A TOTAL OF 3 DOSES OR CALL 911 IF NO RELIEF Combivent Respimat Inh (Ipratropium-Albuterol Inh) 20-[address] Half-[address]/Act Aero 2 Puff INH BID Review of Systems Except as stated in HPI: all other systems reviewed are Neg General / Constitutional: No: Fever Eyes: No: Visual changes HENT: No: Headaches Cardiovascular: Positive: Chest Pain or Discomfort, Diaphoresis, Dyspnea on exertion Respiratory: Positive: Cough, Shortness of Breath Gastrointestinal: Positive: Nausea, No: Vomiting, Diarrhea, Abdominal Pain, Indigestion, Loss of Appetite Genitourinary: No: Dysuria Musculoskeletal: No: Pain Skin: No Rash Neurologic: No: Weakness Psychiatric: No: Depression Endocrine: No: Polydipsia Hematologic/Lymphatic: No: Easy Bruising Physical Exam Narrative General: The patient is a well-developed well-nourished male, short of breath on arrival with diaphoresis. Head and Neck exam: Head is normocephalic atraumatic. Eyes: EOMI, pupils are equal round and reactive to light. Nose: Midline septum with pink mucous membranes Mouth: Dentition unremarkable. Moist mucus membranes. Posterior oropharynx is not erythematous. No tonsillar hypertrophy. Uvula midline. Airway patent. Neck: No palpable lymphadenopathy. No nuchal rigidity. No thyromegaly. Cardiovascular: Sinus tachycardia in the low 100s without murmurs, gallops, or rubs. No pulse deficit to the extremities and simultaneous auscultation and palpation of his radial artery. Lungs: Decreased breath sounds in bilateral bases. The patient has crackles audible in the right lower lung base. No wheezes audible. No rhonchi. The patient has some accessory muscle use noted. No paroxysmal abdominal breathing. Abdomen: Soft, with abdominal distention that she reports is chronic although slightly worse. No point tenderness on palpation of all 4 quadrants of the abdomen. The patient has a positive fluid wave noted. No guarding, rebound, or rigidity. Negative [place] sign. No tenderness on palpation of McBurney's point. Normal bowel sounds are audible. Extremities: No clubbing, cyanosis, or edema. 2+ pulses in bilateral upper extremities. The patient has difficulty palpate pulses in bilateral lower extremities, however warm feet on palpation with less than 4 second capillary refill of bilateral feet. Back: No costovertebral angle tenderness to palpation. Neurologic Exam: Grossly nonfocal. Skin Exam: No rash noted. Intact skin that is warm and diaphoretic. Data Data Last Documented VS Vital Signs Date Time Temp Pulse Resp B/P Pulse Ox O2 Delivery O2 Flow Rate FiO2 11/10/16 07:13 118 28 189/97 91 BiPAP 11/10/16 06:32 30 11/10/16:17 97.4 Orders Complete Blood Count With Diff (11/10/16 06:27) Comprehensive Metabolic Panel (11/10/16 06:27) B-Type Natriuretic Peptide (11/10/16 06:27) Act Partial Throm Time (Ptt) (11/10/16 06:27) Prothrombin Time / Inr (Pt) (11/10/16 06:27) Magnesium (Mg) (11/10/16 06:27) Ckmb (Isoenzyme) Profile (11/10/16 06:27) Troponin I (11/10/16 06:27) Arterial Blood Gas (Abg) (11/10/16 06:27) Urinalysis - C+S If Indicated (11/10/16 06:27) Iv Access Insert/Monitor (11/10/16 06:27) Electrocardiogram (11/10/16 06:27) Ecg Monitoring (11/10/16 06:27) Oximetry (11/10/16 06:27) Oxygen Administration (11/10/16 06:27) Urinary Catheter Insert/Apply (11/10/16 06:27) Sodium Chloride 0.9% Flush (Ns Flush) (11/10/16 06:30) Albuterol-Ipratropium Neb (Duoneb Neb) (11/10/16 06:30) Furosemide Inj (Lasix Inj) (11/10/16 06:30) Resp Bipap / Cpap Non Invas Vt (11/10/16 06:27) Chest, Single Ap (11/10/16 06:33) Nitroglycerin 2% Oint (Nitroglycerin 2% (11/10/16 06:45) Blood Culture (11/10/16 07:13) Lactic Acid Sepsis Protocol (11/10/16 07:13) Ceftriaxone Inj (Rocephin Inj) (11/10/16 07:15) Azithromycin Inj (Zithromax Inj) (11/10/16 07:15) Methylprednisolone So Succ Inj (Solumedr (11/10/16 07:15) Labs Laboratory Tests Test 11/10/16 11/10/16 06:35 06:45 White Blood Count 13.4 TH/MM3 Red Blood Count 3.64 MIL/MM3 Hemoglobin 11.3 GM/DL Hematocrit 34.7 % Mean Corpuscular Volume 95.2 FL Mean Corpuscular Hemoglobin 31.0 PG Mean Corpuscular Hemoglobin 32.5 % Concent Red Cell Distribution Width 19.0 % Platelet Count 205 TH/MM3 Mean Platelet Volume 9.1 FL Neutrophils (%) (Auto) 86.9 % Lymphocytes (%) (Auto) 7.4 % Monocytes (%) (Auto) 5.0 % Eosinophils (%) (Auto) 0.2 % Basophils (%) (Auto) 0.5 % Neutrophils # (Auto) 11.7 TH/MM3 Lymphocytes # (Auto) 1.0 TH/MM3 Monocytes # (Auto) 0.7 TH/MM3 Eosinophils # (Auto) 0.0 TH/MM3 Basophils # (Auto) 0.1 TH/MM3 CBC Comment DIFF FINAL Differential Comment Blood Gas Puncture Site LT RADIAL Blood Gas Patient Temperature 98.6 Blood Gas HCO3 26 mmol/L Blood Gas Base Excess 1.4 mmol/L Blood Gas Oxygen Saturation 95 % Arterial Blood pH 7.35 Arterial Blood Partial 49 mmHg Pressure CO2 Arterial Blood Partial 96 mmHG Pressure O2 Arterial Blood Oxygen Content 15.4 Vol % Arterial Blood 2.0 % Carboxyhemoglobin Arterial Blood Methemoglobin 0.5 % Blood Gas Hemoglobin 11.5 G/DL Oxygen Delivery Device BiPAP Blood Gas Ventilator Setting IPAP 10/EPAP 5 Blood Gas Inspired Oxygen 30 % [facility] Medical Decision Making Medical Screen Exam Complete: Yes Emergency Medical Condition: Yes Medical Record Reviewed: Yes Interpretation(s) Last Impressions Chest X-Ray 11/10/16 0633 Signed Impressions: Service Date/Time: Thursday, November 10, 2016 06:28 - CONCLUSION: Scattered and patchy areas of new infiltrate right lower lung. Gigi Hope MD Differential Diagnosis Acute coronary syndrome, versus STEMI, versus congestive heart failure exacerbation, versus pneumonia Narrative Course During the course of the patients emergency department visit, the patients history, examination, and differential diagnosis were reviewed with the patient. The patient had IV access obtained and blood work sent for analysis. The patient was on a property assessment monitor with oximetry and blood pressure monitoring. An ECG was done on arrival. The patient's ECG shows an electronic and regular paced rhythm, no acute ST segment elevation, QRS duration is 174 ms , QTC 429 ms. The patient was initially provided nitroglycerin 1 inch the chest wall. The patient was placed on BiPAP. The patient was given Lasix 60 mg IV. The patient was given DuoNeb 3. The patients laboratory studies were reviewed and remarkable for a white count of 13.4, hemoglobin 11.3, platelets 205 with 86.9 neutrophils, lymphocytes 7.4. ABG on BiPAP shows a pH of 7.35, PCO2 49, PO2 96, bicarbonate 26 with a base excess of 1.4. Radiology studies were reviewed and remarkable for a chest x-ray that shows scattered and patchy areas of new infiltrate in the right lower lung. Blood cultures 2 were added to the patient's labs along with a lactic acid per sepsis protocol. The patient was started on Rocephin 1 g IV, Zithromax 500 IV for possible pneumonia. The patient was given Solu-Medrol 125 mg IV for underlying component of COPD exacerbation given the patient's CO2 retention and prior smoking history. The patient's case was checked out to the oncoming emergency physician to disposition the patient based on the conclusion of his workup. I anticipate that the patient will be admitted to the hospital for continued evaluation and treatment. Diagnosis Primary Impression: Shortness of breath Admitting Information Admitting Physician Requests: Admit Lizzie Byrd MD Nov 10, 2016 06:44
[2016-11-10] MEDS: SODIUM CHLORIDE 0.9% FLUSH 10 ML FLUSH IVF PRN (06:45)
[2016-11-10] MEDS ORDERED: NITROGLYCERIN 2% OINT 1 GM PACKET TOPICAL ONE (06:45)
[2016-11-10 06:58] LABS: AUTOMATED NEUTROPHIL # 11.7 TH/MM3 (1.8-7.7); BASOPHIL # 0.1 TH/MM3 (0-0.2); BASOPHIL % 0.5 % (0.0-2.0); EOSINOPHIL % 0.2 % (0.0-4.0); HEMATOCRIT 34.7 % (39.0-51.0); HEMO FLAGS DIFF FINAL; LYMPH % 7.4 % (9.0-44.0); MEAN CELL VOLUME 95.2 FL (80.0-100.0); MEAN CORPUSCULAR HGB CONC 32.5 % (32.0-36.0); NEUT % 86.9 % (16.0-70.0); PLATELET COUNT 205 TH/MM3 (150-450); RED BLOOD COUNT 3.64 MIL/MM3 (4.50-5.90); WHITE BLOOD COUNT 13.4 TH/MM3 (4.0-11.0)
[2016-11-10 06:59] LABS: BLOOD GAS BASE EXCESS 1.4 mmol/L (-2-2); BLOOD GAS HCO3 26 mmol/L (22-26); BLOOD GAS METHEMOGLOBIN 0.5 % (0-2); BLOOD GAS O2 HGB SATURATION 95 % (90-100); BLOOD GAS OXYGEN CONTENT 15.4 Vol % (12.0-20.0); BLOOD GAS PCO2 49 mmHg (38-42); BLOOD GAS PO2 96 mmHG (61-120); BLOOD GAS TOTAL HGB 11.5 G/DL (12.0-16.0); TEMP CORR TO 98.6
[2016-11-10 07:00] LABS: CRITICAL VALUE NO; DRAW SITE LT RADIAL; FIO2 30 %; OXYGEN DEVICE BiPAP; VENT SETTINGS IPAP 10/EPAP 5
[2016-11-10 07:01] LABS: NUMBER OF ARTERIAL PUNCTURES 1; STAT YES; ULNAR PULSE PRESENT
--- NOTE | 2016-11-10 07:01 | RADRPT ---
EXAM DATE/TIME: 11/10/2016 06:28 [facility] COMPARISON: CHEST SINGLE AP, October 20, 2016, 13:13. INDICATIONS : Chest pain. Shortness of breath. MEDICAL HISTORY : Chronic obstructive pulmonary disease. Congestive heart failure. asthma. SURGICAL HISTORY : CABG. Pacemaker. ENCOUNTER: Initial ACUITY: 1 day PAIN SCORE: 0/10 LOCATION: Bilateral chest FINDINGS: Cardiomegaly, similar to prior exam. There are patchy infiltrates in the lower right lung which is a new finding from prior chest x-ray. Left lung is clear. CONCLUSION: Scattered and patchy areas of new infiltrate right lower lung. Gigi Hope MD on November 10, 2016 at 6:59 Board Certified Radiologist. This report was verified electronically.
[2016-11-10 07:14] LABS: BLOOD, URINE SMALL (NEG); GLUCOSE,URINE NEG (NEG); GRANULAR CAST, URINE 3 /lpf; HYALINE CAST, URINE 8 /lpf (RARE); KETONE, URINE NEG (NEG); MUCUS URINE FEW /lpf (OCC); NITRITE,URINE NEG (NEG); SQUAMOUS EPITHELIAL CELL URINE 1 /hpf (0-5); URINE COLOR YELLOW (YELLW/STRAW)
[2016-11-10] MEDS ORDERED: cefTRIAXone INJ 2,000 MG in SODIUM CHLORIDE 0.9% INJ 100 ML IV ONE (07:15)
[2016-11-10] MEDS ORDERED: methylPREDNISolone SOD SUCC 125 MG/2 ML VIAL IV PUSH ONE (07:15)
[2016-11-10] MEDS ORDERED: AZITHROMYCIN INJ 500 MG in SODIUM CHLOR 0.9% 250 ML INJ 250 ML IV ONE (07:15)
[2016-11-10 07:17] LABS: COMMENT (UR) CULT NOT INDICATED; CULTURE IF INDICATED CULT NOT INDICATED
--- NOTE | 2016-11-10 07:30 | EKG ---
Date Performed: 11/10/2016 Time Performed: 06:20:47 PTAGE: 66 years EKG: Baseline artifact present ELECTRONIC VENTRICULAR PACEMAKER ABNORMAL RHYTHM ECG Compared to the PREVIOUS TRACING rate has increased PREVIOUS TRACIN10/20/2016 13.09 DOCTOR: Melvin Muhammad Interpretating Date/Time 11/10/2016 07:28:44
[2016-11-10] MEDS ORDERED: SODIUM CHLOR 0.9% 250 ML INJ 250 ML ONE (07:46)
[2016-11-10] MEDS ORDERED: NITROGLYCERIN-D5W 50 MG/250 ML 250 ML IV SCH (08:00)
--- NOTE | 2016-11-10 08:03 | PD ---
Data Data Last Documented VS Vital Signs Date Time Temp Pulse Resp B/P Pulse Ox O2 Delivery O2 Flow Rate FiO2 11/10/16 08:08 99 23 147/91 99 BiPAP 11/10/16 07:29 40 11/10/16:17 97.4 Orders Complete Blood Count With Diff (11/10/16 06:27) Comprehensive Metabolic Panel (11/10/16 06:27) B-Type Natriuretic Peptide (11/10/16 06:27) Act Partial Throm Time (Ptt) (11/10/16 06:27) Prothrombin Time / Inr (Pt) (11/10/16 06:27) Magnesium (Mg) (11/10/16 06:27) Ckmb (Isoenzyme) Profile (11/10/16 06:27) Troponin I (11/10/16 06:27) Arterial Blood Gas (Abg) (11/10/16 06:27) Urinalysis - C+S If Indicated (11/10/16 06:27) Iv Access Insert/Monitor (11/10/16 06:27) Electrocardiogram (11/10/16 06:27) Ecg Monitoring (11/10/16 06:27) Oximetry (11/10/16 06:27) Oxygen Administration (11/10/16 06:27) Urinary Catheter Insert/Apply (11/10/16 06:27) Sodium Chloride 0.9% Flush (Ns Flush) (11/10/16 06:30) Albuterol-Ipratropium Neb (Duoneb Neb) (11/10/16 06:30) Furosemide Inj (Lasix Inj) (11/10/16 06:30) Resp Bipap / Cpap Non Invas Vt (11/10/16 06:27) Chest, Single Ap (11/10/16 06:33) Nitroglycerin 2% Oint (Nitroglycerin 2% (11/10/16 06:45) Blood Culture (11/10/16 07:13) Lactic Acid Sepsis Protocol (11/10/16 07:13) Ceftriaxone Inj (Rocephin Inj) (11/10/16 07:15) Azithromycin Inj (Zithromax Inj) (11/10/16 07:15) Methylprednisolone So Succ Inj (Solumedr (11/10/16 07:15) Sodium Chlor 0.9% 250 Ml Inj (Ns 250 Ml (11/10/16 07:46) Nitroglycerin-Dextrose Inj (Nitroglyceri (11/10/16 08:00) Place In Observation (11/10/16 ) Cefepime Inj (Maxipime Inj) (11/10/16 09:00) Azithromycin Inj (Zithromax Inj) (11/11/16 09:00) Admit Order (Ed Use Only) (11/10/16 ) Labs Laboratory Tests Test 11/10/16 11/10/16 11/10/16 11/10/16 06:35 06:45 07:00 07:30 White Blood Count 13.4 TH/MM3 Red Blood Count 3.64 MIL/MM3 Hemoglobin 11.3 GM/DL Hematocrit 34.7 % Mean Corpuscular Volume 95.2 FL Mean Corpuscular Hemoglobin 31.0 PG Mean Corpuscular Hemoglobin 32.5 % Concent Red Cell Distribution Width 19.0 % Platelet Count 205 TH/MM3 Mean Platelet Volume 9.1 FL Neutrophils (%) (Auto) 86.9 % Lymphocytes (%) (Auto) 7.4 % Monocytes (%) (Auto) 5.0 % Eosinophils (%) (Auto) 0.2 % Basophils (%) (Auto) 0.5 % Neutrophils # (Auto) 11.7 TH/MM3 Lymphocytes # (Auto) 1.0 TH/MM3 Monocytes # (Auto) 0.7 TH/MM3 Eosinophils # (Auto) 0.0 TH/MM3 Basophils # (Auto) 0.1 TH/MM3 CBC Comment DIFF FINAL Differential Comment B-Type Natriuretic Peptide 1185 PG/ML Blood Gas Puncture Site LT RADIAL Blood Gas Patient Temperature 98.6 Blood Gas HCO3 26 mmol/L Blood Gas Base Excess 1.4 mmol/L Blood Gas Oxygen Saturation 95 % Arterial Blood pH 7.35 Arterial Blood Partial 49 mmHg Pressure CO2 Arterial Blood Partial 96 mmHG Pressure O2 Arterial Blood Oxygen Content 15.4 Vol % Arterial Blood 2.0 % Carboxyhemoglobin Arterial Blood Methemoglobin 0.5 % Blood Gas Hemoglobin 11.5 G/DL Oxygen Delivery Device BiPAP Blood Gas Ventilator Setting IPAP 10/EPAP 5 Blood Gas Inspired Oxygen 30 % Urine Color YELLOW Urine Turbidity HAZY Urine pH 6.0 Urine Specific [place] 1.020 Urine Protein 300 mg/dL Urine Glucose (UA) NEG mg/dL Urine Ketones NEG mg/dL Urine Occult Blood SMALL Urine Nitrite NEG Urine Bilirubin NEG Urine Urobilinogen LESS THAN 2.0 MG/DL Urine Leukocyte Esterase NEG Urine RBC 2 /hpf Urine WBC 2 /hpf Urine Squamous Epithelial 1 /hpf Cells Urine Amorphous Sediment FEW Urine Hyaline Casts 8 /lpf Urine Granular Casts 3 /lpf Urine Mucus FEW /lpf Microscopic Urinalysis Comment CULT NOT INDICATED Lactic Acid Level 4.9 mmol/L Test 11/10/16 08:15 Prothrombin Time 12.4 SEC Prothromb Time International 1.1 RATIO Ratio Activated Partial 27.5 SEC Thromboplast Time MDM Supervised Visit with EDGARDO: Yes Narrative Course 66 old man, chest pain shortness of breath times today, history of extensive heart disease including most notably ischemic cardiomyopathy with an EF of 25%, and alcoholic liver disease. Patient continues to drink about 2 beers a day. On ED arrival he was in marked respiratory distress on nonrebreather and placed on a BiPAP. He was initially evaluated by Dr. Byrd, and then signed out to me to follow-up on the results of labs and diagnostic testing. PMH: CAD, history of CABG, with ICM with AICD/Pacer, EF 25% HLD DM history fo VTach PVD Alcoholic cirrhosis, liver bx on 07/24/15, history of esophageal varices Patient still diaphoretic in respiratory distress on BiPAP. It settings were adjusted. The x-ray shows concern for pneumonia. Labs show elevated white count with leukocytosis and elevated lactate. He'll be treated for pneumonia and sepsis. He'll be admitted to the ICU. Diagnosis Primary Impression: Shortness of breath Bright Matthews MD Nov 10, 2016 08:03
[2016-11-10 08:41] LABS: APTT (PATIENT) 27.5 SEC (24.3-30.1); INTERNATIONAL NORMALIZED RATIO 1.1 RATIO; PROTHROMBIN TIME - PATIENT 12.4 SEC (9.8-11.6)
[2016-11-10 08:55] LABS: ALT (GPT) 64 U/L (12-78); ANION GAP 15 MEQ/L (5-15); AST (GOT) 76 U/L (15-37); BICARBONATE 25.7 MEQ/L (21.0-32.0); BLOOD UREA NITROGEN 14 MG/DL (7-18); CHLORIDE 82 MEQ/L (98-107); GLOMERULAR FILTRATION RATE 70 ML/MIN (>89); MAGNESIUM 1.5 MG/DL (1.5-2.5); POTASSIUM 5.5 MEQ/L (3.5-5.1)
[2016-11-10] MEDS ORDERED: CHLORHEXIDINE GLUCONATE 2 % 1 PACK (2 CLOTHS) TOP PRN (09:00)
[2016-11-10] MEDS ORDERED: MISCELLANEOUS NURSING INFORMATION XX SCH (09:00)
[2016-11-10] MEDS ORDERED: RESP: ALBUTEROL 2.5 MG/IPRATROPIUM 0.5 MG NEB (PRN) INH (09:00)
[2016-11-10 09:03] LABS: ALKALINE PHOSPHATASE 108 U/L (45-117); CREATINE KINASE 201 U/L (39-308); TOTAL BILIRUBIN ADULT 1.6 MG/DL (0.2-1.0)
[2016-11-10 09:13] LABS: SODIUM (NA) 123 MEQ/L (136-145)
[2016-11-10 09:37] LABS: CKMB 7.6 NG/ML (0.5-3.6)
[2016-11-10 09:37] LABS: LACTIC ACID GHOST NOT REPORTABLE
[2016-11-10] MEDS ORDERED: DEXTROSE 50% IN WATER 50 ML VIAL(D50) IV PUSH PRN (09:45)
[2016-11-10] MEDS ORDERED: GLUCAGON 1 MG/ML VIAL OTHER PRN (09:45)
[2016-11-10 09:49] LABS: BLOOD GAS BASE EXCESS -0.4 mmol/L (-2-2); BLOOD GAS CARBOXYHEMOGLOBIN 2.2 % (0-4); BLOOD GAS HCO3 24 mmol/L (22-26); BLOOD GAS METHEMOGLOBIN 0.4 % (0-2); BLOOD GAS O2 HGB SATURATION 94 % (90-100); BLOOD GAS OXYGEN CONTENT 14.3 Vol % (12.0-20.0); BLOOD GAS PCO2 42 mmHg (38-42); BLOOD GAS PO2 91 mmHG (61-120); BLOOD GAS TOTAL HGB 10.7 G/DL (12.0-16.0); CRITICAL VALUE NO; OXYGEN DEVICE BIPAP; TEMP CORR TO 98.6
[2016-11-10 09:50] LABS: DRAW SITE RT RADIAL; NUMBER OF ARTERIAL PUNCTURES 1; STAT YES; ULNAR PULSE PRESENT; VENT SETTINGS IPAP15/EPAP5
[2016-11-10] MEDS: NITROGLYCERIN 0.4 MG SL 25 TABS/BTL SL PRN (09:54)
[2016-11-10] MEDS: PANTOPRAZOLE SODIUM 40 MG VIAL IV SCH (09:57)
[2016-11-10] MEDS ORDERED: ENOXAPARIN SODIUM 40 MG/0.4 ML SYRINGE SQ SCH (10:00)
[2016-11-10] MEDS: ASPIRIN 81 MG CHEW TAB CHEW SCH (10:00)
[2016-11-10] MEDS: THIAMINE HCL 100 MG TAB PO SCH (10:00)
[2016-11-10] MEDS: ATORVASTATIN 40 MG TAB PO SCH (10:22)
[2016-11-10] MEDS: CHOLECALCIFEROL (VIT D3) 1000 UNIT TAB PO SCH (10:22)
[2016-11-10] MEDS: MORPHINE SULFATE 4 MG/ML INJ IV PRN ×2 (10:23→16:09)
[2016-11-10] MEDS: ISOSORBIDE MONONITRATE 30 MG TAB PO SCH (10:36)
[2016-11-10] MEDS: SOTALOL HCL 80 MG TAB PO SCH ×2 (10:37→20:59)
[2016-11-10] MEDS: RESP: ALBUTEROL 2.5 MG/IPRATROPIUM 0.5 MG NEB (SCH) NEB ×3 (11:30→23:18)
[2016-11-10] MEDS: CEFEPIME INJ 2,000 MG in SODIUM CHLORIDE 0.9% INJ 100 ML IV SCH ×2 (11:35→17:36)
[2016-11-10] MEDS: INSULIN ASPART SUPPLEMENTAL SCALE SQ SCH ×3 (11:40→20:00)
--- NOTE | 2016-11-10 12:56 | HHI.HP ---
[facility] Service Critical Care Medicine Primary Care Physician Venice Mota MD Admission Diagnosis CHF exacerbation, respiratory failure Diagnosis: (1) Acute respiratory failure Diagnosis: Principal (2) Severe sepsis Diagnosis: Principal (3) HCAP (healthcare-associated pneumonia) Diagnosis: Principal (4) COPD with exacerbation Diagnosis: Principal (5) Hyponatremia Diagnosis: Principal (6) CHF (congestive heart failure) Diagnosis: Secondary (7) CAD (coronary artery disease) Diagnosis: Secondary (8) COPD (chronic obstructive pulmonary disease) Diagnosis: Secondary (9) Hyperlipidemia Diagnosis: Secondary (10) Non-sustained ventricular tachycardia Diagnosis: Secondary (11) EtOH dependence Diagnosis: Secondary (12) History of CHF (congestive heart failure) Diagnosis: Secondary (13) Diabetes mellitus, type 2 Diagnosis: Secondary (14) Ischemic cardiomyopathy Diagnosis: Secondary (15) Alcoholic cirrhosis Diagnosis: Secondary (16) Systolic heart failure, chronic Diagnosis: Secondary Chief Complaint: Shortness of breath Right lower lobe pneumonia Severe sepsis Travel History International Travel<30 Days: No Contact w/Intl Traveler <30 Da: No Traveled to Known Affected Are: No Sepsis Criteria SIRS Criteria (2 or more): Heart rate over 90, RR > 20 or PaCO2 < 32, WBC > 32521, < 4000 or > 10% bands Sepsis Criteria (SIRS+source): Infect source susp/known Severe Sepsis (+one): Lactate >2 Septic Shock Criteria: Lactic acid >=4 Criteria Outcome: Meets severe sepsis criteria History of Present Illness Patient is a 66-year-old male with past medical history significant for coronary artery disease, ischemic cardiomyopathy, ventricular tachycardia, status post AICD, liver cirrhosis, continued alcohol use, COPD who presented to the emergency department with one-day duration of chest pain and shortness of breath. He woke up with shortness of breath and chest pain, took one sublingual nitroglycerin and called ambulance services. He was given 2 additional sublingual nitroglycerin, aspirin and 162 mg by mouth by EMS. He had oxygen saturation 89%, he was placed on nonrebreather mask and transported to [place] ED. He quit smoking about one year ago but continues to drink 2 beers daily. The patient was placed on BiPAP with some improvement in symptoms. Chest x-ray showed right lower lobe infiltrate concerning for healthcare associated pneumonia as he was recently admitted and discharged from hospital (10/20/16-10/23/16 for chest pain COPD and CHF). Patient received Rocephin and azithromycin in the ED. His lab work showed WBC 13.4 with left shift, sodium was 123 potassium 5.5, lactic acid was 4.9 and BNP was 1185. I evaluated the patient in the ICU. He is in moderate distress on BiPAP. Intermittent chest pain requiring nitroglycerin-we'll start on nitro drip. Initial troponin is negative. I have placed him on cefepime and Flagyl for healthcare associated pneumonia. Careful hydration with normal saline to correct hyponatremia. Patient will be continued on aspirin and sotalol, start IV heparin until ACS is ruled out. Consult cardiology Dr. Davenport his primary chief specialist leed. Also patient developed possible nonsustained V. tach in the ICU Review of Systems ROS Limitations: Clinical Condition (on BiPAP), Other (on BiPAP) Past Family Social History Allergies: Coded Allergies: No Known Allergies (Unverified , 11/10/16) Past Medical History Liver cirrhosis Coronary artery disease status post coronary artery bypass grafting, History of cardiac catheterization with stent placements Ischemic cardiomyopathy status post AICD and pacemaker placement Hyperlipidemia Diabetes mellitus History of ventricular tachycardia Peripheral arterial disease Peripheral neuropathy Ascites. Past Surgical History Cardiac catheterization with stent placement Bilateral lower extremity stent placements Coronary artery bypass grafting AICD and pacemaker placement Hernia repair. Reported Medications Prednisone (21) 10 mg tab Dose Pack (Prednisone) 10 Mg Pack 10 Mg PO DIRECTED Ventolin Hfa 18 GM Inh (Albuterol Sulfate) 90 Mcg/Act Aer 2 Puff INH Q4H PRN Furosemide 20 Mg Tab 20 Mg PO DAILY Hm Loperamide HCl (Loperamide HCl) 2 Mg Cap 2 Mg PO Q6H PRN Entresto (Sacubitril-Valsartan) 24-26 Mg Tab 1 Tab PO BID Isosorbide Mononitrate ER (Isosorbide Mononitrate) 30 Mg Scotty 30 Mg PO DAILY Aspirin 81 Mg Chew 81 Mg CHEW DAILY B-1 (Thiamine HCl) 250 Mg Tab 250 Mg PO DAILY Tresiba Flextouch Pen Inj (Insulin Degludec Inj) 300 unit/3 ML Pen 10 Units SQ DAILY Trulicity Inj (Dulaglutide Inj) 0.75 Mg/0.5 Ml Pen 0.75 Mg SQ Q7D ON TUESDAYS Sotalol (Sotalol HCl) 80 Mg Tab 80 Mg PO BID ZyrTEC Itchy Eye Opth Drops (Ketotifen Opth Drops) 0.025% Drops 1 Drop EACH EYE DAILY Atorvastatin (Atorvastatin Calcium) 40 Mg Tab 40 Mg PO DAILY D3 (Cholecalciferol) 1,000 Unit Tab 1,000 Units PO DAILY Flonase Nasal Schuyler (Fluticasone Nasal Schuyler) 50 Mcg/Act Schuyler 2 Schuyler EACH NARE DAILY Nitroglycerin SL (Nitroglycerin) 0.4 Mg Subl 0.4 Mg SL DIRECTED Combivent Respimat Inh (Ipratropium-Albuterol Inh) 20-100 Chcf/Act Aero 2 Puff INH BID Active Ordered Medications Reviewed Family History Family history significant for coronary artery disease Social History Quit smoking 2 years ago. 40 PPD yrs. He drinks 2 beers daily. Physical Exam Vital Signs Vital Signs Date Time Temp Pulse Resp B/P Pulse Ox O2 Delivery O2 Flow Rate FiO2 11/10/16 10:01 96 23 130/72 96 Nasal Cannula 4 11/10/16 09:03 103 21 116/80 99 BiPAP 11/10/16 08:08 99 23 147/91 99 BiPAP 11/10/16 07:29 98 40 11/10/16 07:13 118 28 189/97 91 BiPAP 11/10/16 06:32 98 BiPAP 30 11/10/16 06:32 98 BiPAP 30 11/10/16 06:28 103 98 BiPAP 30 11/10/16 06:25 98 30 11/10/16 06:17 97.4 108 30 192/96 100 Physical Exam GENERAL: This is a well-nourished, well-developed patient, in moderate distress on BiPAP SKIN: Warm and dry HEAD: Atraumatic. Normocephalic. EYES: Pupils equal round and reactive. Extraocular motions intact. No scleral icterus. No injection or drainage. ENT: Nose without bleeding, BiPAP mask limits exam NECK: Trachea midline. No JVD or lymphadenopathy. CARDIOVASCULAR: Regular rate and rhythm without murmurs, gallops, or rubs. RESPIRATORY: Breath sounds equal bilaterally. Crackles at right base GASTROINTESTINAL: Abdomen soft, no tenderness. No organomegaly MUSCULOSKELETAL: Extremities without clubbing, cyanosis, or edema. NEUROLOGICAL: Awake and alert. Motor and sensory grossly within normal limits. Sensations preserved Laboratory Laboratory Tests Test 11/10/16 11/10/16 11/10/16 11/10/16 06:35 06:45 07:00 07:30 White Blood Count 13.4 Red Blood Count 3.64 Hemoglobin 11.3 Hematocrit 34.7 Mean Corpuscular Volume 95.2 Mean Corpuscular Hemoglobin 31.0 Mean Corpuscular Hemoglobin 32.5 Concent Red Cell Distribution Width 19.0 Platelet Count 205 Mean Platelet Volume 9.1 Neutrophils (%) (Auto) 86.9 Lymphocytes (%) (Auto) 7.4 Monocytes (%) (Auto) 5.0 Eosinophils (%) (Auto) 0.2 Basophils (%) (Auto) 0.5 Neutrophils # (Auto) 11.7 Lymphocytes # (Auto) 1.0 Monocytes # (Auto) 0.7 Eosinophils # (Auto) 0.0 Basophils # (Auto) 0.1 CBC Comment DIFF FINAL Differential Comment B-Type Natriuretic Peptide 1185 Blood Gas Puncture Site LT RADIAL Blood Gas Patient Temperature 98.6 Blood Gas HCO3 26 Blood Gas Base Excess 1.4 Blood Gas Oxygen Saturation 95 Arterial Blood pH 7.35 Arterial Blood Partial 49 Pressure CO2 Arterial Blood Partial 96 Pressure O2 Arterial Blood Oxygen Content 15.4 Arterial Blood 2.0 Carboxyhemoglobin Arterial Blood Methemoglobin 0.5 Blood Gas Hemoglobin 11.5 Oxygen Delivery Device BiPAP Blood Gas Ventilator Setting IPAP 10/EPAP 5 Blood Gas Inspired Oxygen 30 Urine Color YELLOW Urine Turbidity HAZY Urine pH 6.0 Urine Specific [place] 1.020 Urine Protein 300 Urine Glucose (UA) NEG Urine Ketones NEG Urine Occult Blood SMALL Urine Nitrite NEG Urine Bilirubin NEG Urine Urobilinogen LESS THAN 2.0 Urine Leukocyte Esterase NEG Urine RBC 2 Urine WBC 2 Urine Squamous Epithelial 1 Cells Urine Amorphous Sediment FEW Urine Hyaline Casts 8 Urine Granular Casts 3 Urine Mucus FEW Microscopic Urinalysis Comment CULT NOT INDICATED Lactic Acid Level 4.9 Test 11/10/16 11/10/16 08:15 09:00 Prothrombin Time 12.4 Prothromb Time International 1.1 Ratio Activated Partial 27.5 Thromboplast Time Sodium Level 123 Potassium Level 5.5 Chloride Level 82 Carbon Dioxide Level 25.7 Anion Gap 15 Blood Urea Nitrogen 14 Creatinine 1.06 Estimat Glomerular Filtration 70 Rate Random Glucose 208 Calcium Level 8.2 Magnesium Level 1.5 Total Bilirubin 1.6 Aspartate Amino Transf 76 (AST/SGOT) Alanine Aminotransferase 64 (ALT/SGPT) Alkaline Phosphatase 108 Total Creatine Kinase 201 Creatine Kinase MB 7.6 Troponin I 0.05 Total Protein 8.2 Albumin 3.4 Blood Gas Puncture Site RT RADIAL Blood Gas Patient Temperature 98.6 Blood Gas HCO3 24 Blood Gas Base Excess -0.4 Blood Gas Oxygen Saturation 94 Arterial Blood pH 7.38 Arterial Blood Partial 42 Pressure CO2 Arterial Blood Partial 91 Pressure O2 Arterial Blood Oxygen Content 14.3 Arterial Blood 2.2 Carboxyhemoglobin Arterial Blood Methemoglobin 0.4 Blood Gas Hemoglobin 10.7 Oxygen Delivery Device BIPAP Blood Gas Ventilator Setting IPAP15/[id number] Date/Time Procedure Status Source Growth 11/10/16 07:30 Aerobic Blood Culture Received Blood Peripheral Pending 11/10/16 07:30 Anaerobic Blood Culture Received Blood Peripheral Pending Result Diagram: 11/10/16 0635 11/10/16 0815 Imaging Right lower lung infiltrate Septic Shock Reassessment Heart: Regular rate and rhythm Lungs: Course, Crackles Skin: Warm Peripheral Pulses: Weak Right Radial Weak Left Radial Assessment and Plan Assessment and Plan NEURO: Alcohol dependence - Minimize sedating medications - As needed morphine for pain and anxiety - Watch for alcohol withdrawal, supplement multivitamin thiamine folic acid RESP: Acute hypoxemic respiratory failure Right lower lobe pneumonia COPD exacerbation - BiPAP 12 over 5 titrate FiO2 to keep saturation about 90% - DuoNeb every 6 hours and when necessary - IV Solu-Medrol 60 mg every 12 (On prednisone at home) - Broad-spectrum antibiotic with cefepime and Flagyl - Follow-up chest x-ray in am CV: Chest pain r/o ACS Probable CHF/elevated BNP Ischemic cardiomyopathy EF 25% Coronary artery disease Ventricular tachycardia status post AICD - Continue nitroglycerin infusion for chest pain, continue aspirin - Start IV heparin until ACS is ruled out, consult cardiology Dr. Davenport - Continue clonazepam medications and cholesterol, central, Lipitor, nitroglycerin, aspirin - Lasix on hold - 2d echo, cardiology consult Dr. Davenport, repeat troponin GI: Liver cirrhosis - Continue alcohol consumption. - Nothing by mouth, IV Protonix /Endo - Monitor renal function closely. Murray catheter. - Gentle hydration with normal saline IV fluid at 50 ml per hour ID: Severe sepsis Lactic acidosis Right lower lobe pneumonia - Source of sepsis most likely right lower lobe pneumonia - Continue cefepime Flagyl, and 1 dose of vancomycin HEME: - Monitor CBC, CMP, coags ENDO: Hyponatremia/hyperkalemia - On chronic steroids, will start IV Solu-Medrol 60 mg every 8 hours PROPH: - Bilateral lower extremity SCDs. IV Heparin, IV Protonix LINES: - Utilize peripheral IVs, central line if needed CC time 78 min Problem Qualifiers (1) Acute respiratory failure: Qualified Code: J96.00 - Acute respiratory failure, unspecified whether with hypoxia or hypercapnia (2) CHF (congestive heart failure): (3) CAD (coronary artery disease): (4) EtOH dependence: Qualified Code: F10.29 - Alcohol dependence with unspecified alcohol-induced disorder (5) Diabetes mellitus, type 2: Nikki Escobar MD Nov 10, 2016 12:56 Nikki Escobar MD Nov 10, 2016 12:56
[2016-11-10] MEDS: SACUBITRIL/VALSARTAN 24 MG-26 MG TAB PO SCH ×2 (13:22→20:59)
[2016-11-10] MEDS: SODIUM CHLOR 0.9% 1000 ML INJ 1,000 ML IV SCH (13:22)
--- NOTE | 2016-11-10 13:44 | EKG ---
Date Performed: 11/10/2016 Time Performed: 09:52:25 PTAGE: 66 years EKG: ELECTRONIC VENTRICULAR PACEMAKER ABNORMAL RHYTHM ECG Compared to prior tracing no significa nt change NO PREVIOUS TRACING DOCTOR: Melvin Muhammad Interpretating Date/Time 11/10/2016 13:42:52
[2016-11-10] MEDS ORDERED: MORPHINE SULFATE 4 MG/ML INJ IV PUSH PRN (13:45)
[2016-11-10] MEDS: MULTIVITAMIN INJ 10 ML, THIAMINE INJ 100 MG, FOLIC ACID INJ 1 MG in SODIUM CHLORID 0.9%... IV SCH (14:55)
[2016-11-10] MEDS ORDERED: MULTIVITAMIN INJ 10 ML, THIAMINE INJ 100 MG, FOLIC ACID INJ 1 MG in SODIUM CHLORID 0.9%... IV ONE (16:00)
[2016-11-10] MEDS: HEPARIN-D5W 25,000 U/250 ML 250 ML IV SCH (16:17)
[2016-11-10 16:22] LABS: HEMATOCRIT 31.2 % (39.0-51.0); MEAN CELL VOLUME 95.1 FL (80.0-100.0); MEAN CORPUSCULAR HEMOGLOBIN 31.4 PG (27.0-34.0); PLATELET COUNT 114 TH/MM3 (150-450); RED BLOOD COUNT 3.28 MIL/MM3 (4.50-5.90); RED CELL DISTRIBUTION WIDTH 18.3 % (11.6-17.2); REVIEW FLAG FINAL; WHITE BLOOD COUNT 10.7 TH/MM3 (4.0-11.0)
[2016-11-10 16:35] LABS: APTT (PATIENT) 31.5 SEC (24.3-30.1); INTERNATIONAL NORMALIZED RATIO 1.2 RATIO; PROTHROMBIN TIME - PATIENT 13.4 SEC (9.8-11.6)
[2016-11-10] MEDS: methylPREDNISolone SOD SUCC 125 MG/2 ML VIAL IV PUSH SCH (17:36)
[2016-11-10] MEDS: CHLORHEXIDINE 0.12% (ORAL KIT) 15 ML CUP MT SCH (20:00)
[2016-11-10 20:44] LABS: APTT (PATIENT) 50.1 SEC (24.3-30.1)
[2016-11-10 20:54] LABS: MAGNESIUM 1.6 MG/DL (1.5-2.5)
--- NOTE | 2016-11-10 23:27 | MB ---
cc: HIEU LOWERY DO DATE OF CONSULTATION November 10, 2016 REASON FOR CONSULTATION Chest pain, shortness of breath. HISTORY OF PRESENT ILLNESS Jose Sutherland is a pleasant 66-year-old male who presented to [facility] Emergency Room on November 10, 2016. Dictation abruptly ended. * Hieu Lowery DO VGP/EO /11:03 PM /11:21 PM
[2016-11-11] VITALS (15 sets, daily range): BP systolic 95–108; BP diastolic 59–69; PULSE 68–102; RESP 16–26; TEMP 97.8–98.8; O2SAT 95–100
[2016-11-11] MEDS: CEFEPIME INJ 2,000 MG in SODIUM CHLORIDE 0.9% INJ 100 ML IV SCH ×3 (01:44→17:45)
[2016-11-11 03:03] LABS: AUTOMATED NEUTROPHIL # 11.8 TH/MM3 (1.8-7.7); BASOPHIL # 0.1 TH/MM3 (0-0.2); BASOPHIL % 0.4 % (0.0-2.0); HEMATOCRIT 30.8 % (39.0-51.0); HEMO FLAGS DIFF FINAL; LYMPH % 2.1 % (9.0-44.0); LYMPHOCYTE # 0.3 TH/MM3 (1.0-4.8); MEAN CELL VOLUME 95.2 FL (80.0-100.0); MEAN CORPUSCULAR HEMOGLOBIN 31.5 PG (27.0-34.0); MEAN CORPUSCULAR HGB CONC 33.1 % (32.0-36.0); MONO % 1.6 % (0.0-8.0); NEUT % 95.9 % (16.0-70.0); PLATELET COUNT 126 TH/MM3 (150-450); RED BLOOD COUNT 3.24 MIL/MM3 (4.50-5.90); RED CELL DISTRIBUTION WIDTH 18.7 % (11.6-17.2); WHITE BLOOD COUNT 12.3 TH/MM3 (4.0-11.0)
[2016-11-11 03:22] LABS: ALKALINE PHOSPHATASE 83 U/L (45-117); ALT (GPT) 52 U/L (12-78); ANION GAP 9 MEQ/L (5-15); AST (GOT) 56 U/L (15-37); BICARBONATE 28.2 MEQ/L (21.0-32.0); BLOOD UREA NITROGEN 21 MG/DL (7-18); CHLORIDE 89 MEQ/L (98-107); GLOMERULAR FILTRATION RATE 78 ML/MIN (>89); POTASSIUM 4.5 MEQ/L (3.5-5.1); SODIUM (NA) 126 MEQ/L (136-145); TOTAL BILIRUBIN ADULT 0.9 MG/DL (0.2-1.0)
[2016-11-11] MEDS: RESP: ALBUTEROL 2.5 MG/IPRATROPIUM 0.5 MG NEB (SCH) NEB ×3 (03:37→21:18)
[2016-11-11] MEDS: INSULIN ASPART SUPPLEMENTAL SCALE SQ SCH ×6 (03:49→20:00)
[2016-11-11] MEDS: methylPREDNISolone SOD SUCC 125 MG/2 ML VIAL IV PUSH SCH ×2 (03:53→17:44)
[2016-11-11] MEDS: CHLORHEXIDINE GLUCONATE 2 % 1 PACK (2 CLOTHS) TOP SCH (03:56)
--- NOTE | 2016-11-11 06:00 | RADRPT ---
EXAM DATE/TIME: 11/11/2016 04:57 [place] COMPARISON: CHEST SINGLE AP, November 10, 2016, 6:28. INDICATIONS : Short of breath, respiratory disease. MEDICAL HISTORY : Chronic obstructive pulmonary disease. Congestive heart failure. asthma. SURGICAL HISTORY : CABG. Pacemaker. ENCOUNTER: Subsequent ACUITY: 1 day PAIN SCORE: 0/10 LOCATION: Bilateral chest FINDINGS: Stable cardiomegaly. The lungs are clear; no infiltrates seen. Cardiac pacer leads stable. CONCLUSION: No infiltrates seen. Gigi Hope MD on November 11, 2016 at 5:58 Board Certified Radiologist. This report was verified electronically.
--- NOTE | 2016-11-11 06:45 | MB ---
cc: HIEU LOWERY DO DATE OF CONSULTATION: 11/10/2016 REASON FOR CONSULTATION Chest pain with shortness of breath. HISTORY OF PRESENT ILLNESS Jose Sutherland is a pleasant 66-year-old male who presented to [facility] on November 10, 2016 due to chest pain and shortness of breath. Of note, he has been in the hospital multiple times over the past year with end-stage heart failure. This morning he woke up with chest pain and shortness of breath and took one sublingual nitroglycerin and called the ambulance service. He was given two additional sublingual nitroglycerin and arrived to the emergency room via EMS. On arrival his oxygen saturation was 89%. He was started on a non-rebreather and then switched to BiPAP. On BiPAP he had improvement of his chest pain and shortness of breath. In seeing him he is currently in the ICU on BiPAP in no acute distress. Of note, he did have a wide complex tachycardia of 8 beats with R-R interval change. PAST MEDICAL HISTORY 1. Liver cirrhosis. 2. Coronary artery disease. 3. Ischemic cardiomyopathy. 4. Hyperlipidemia. 5. Diabetes mellitus. 6. History of paroxysmal ventricular tachycardia. 7. Peripheral artery disease. 8. Peripheral neuropathy. 9. Ascites. PAST SURGICAL HISTORY 1. Cardiac catheterization with stent placement with unknown coronary anatomy. 2. Bilateral lower extremity intervention. 3. Coronary artery bypass grafting with unknown coronary anatomy. 4. AICD and pacemaker placement. 5. Hernia repair. ALLERGIES No known drug allergies. MEDICATIONS 1. Entresto 24/26 b.i.d. 2. Combivent, two puffs b.i.d. 3. Albuterol, two puffs every 4 hours as needed for shortness of breath. 4. Sotalol 80 mg b.i.d. 5. Flonase daily. 6. Lipitor 40 mg daily. 7. Trulicity 0.75 mg subcu on Tuesdays. 8. Tresiba 10 units daily. 9. Lasix 20 mg daily. 10.Imdur 30 mg daily. 11.Nitro sublingual as needed. 12.Aspirin 81 mg daily. FAMILY HISTORY Denies premature coronary artery disease or sudden cardiac within the family. SOCIAL HISTORY The patient previously smoked but quit two years ago. He drinks two beers a day. REVIEW OF SYSTEMS 14-systems were reviewed including osteopathic with pertinent positives and negatives as above; otherwise negative. PHYSICAL EXAMINATION VITAL SIGNS: Temperature 98.4, heart rate 76, blood pressure 110/69, respirations 18, pulse ox 99% on BiPAP. GENERAL: In general the patient is in no acute distress, alert awake and oriented x3. HEENT: Extraocular muscles intact. Mucous membranes moist. NECK: Supple. No JVD at 45 degrees. No carotid bruits heard bilaterally. Carotid upstroke is brisk in nature. HEART: Regular rate and rhythm. Positive first and second heart sounds with a 1/6 holosystolic murmur noted at the apex. LUNGS: Decreased breath sounds bilaterally with mild rales and rhonchi scattered throughout. ABDOMEN: Soft, nontender, nondistended. No organomegaly noted. EXTREMITIES: No clubbing, cyanosis or edema. Femoral and distal pulses intact bilaterally. NEUROLOGIC: No focal deficits. SKIN: Warm, dry and intact. MUSCULOSKELETAL: Osteopathically mild lordosis, no kyphoscoliosis or paraspinal tender points. LABORATORY Hemoglobin 10.3, hematocrit 31.2, platelets 114. Sodium 123, potassium 5.5, BUN 14, creatinine 1.06, lactic acid 4.9. Troponin 0.05 increasing to 1.02. ELECTROCARDIOGRAM Electrocardiogram (November 10, 2016 at 1157): Demand pacing. No acute ST-T wave changes. IMPRESSION 1. NSTEMI. 2. Acute respiratory failure. 3. End-stage heart failure, [place] [employer] 3-4. 4. Healthcare-associated pneumonia with severe sepsis. 5. COPD exacerbation. 6. Hyponatremia secondary to congestive heart failure. 7. Coronary artery disease. 8. History of ventricular tachycardia. 9. Wide complex tachycardia on telemetry, most likely atrial fibrillation with a change in the R-R interval. 10.Diabetes mellitus. 11.Ischemic cardiomyopathy. 12.Alcoholic cirrhosis. RECOMMENDATIONS 1. Mr. Sutherland presented with chest pain and shortness of breath and this may be due to his fluid overload state with his congestive heart failure versus his pneumonia. 2. He had an elevation of his troponin which overall may be a type 2 in nature due to his lactic acidosis, congestive heart failure and pneumonia. 3. He did have a wide complex tachycardia on telemetry but overall this looks like atrial fibrillation with aberrancy. 4. Will plan on placing him on heparin for now. 5. He has been placed on antibiotic therapy for his healthcare-associated pneumonia. 6. Will attempt to slightly diurese him, but will have to watch his overall sodium levels. 7. In January 2016 he underwent a pharmacologic nuclear stress test showing no significant stress-induced ischemia; however, due to his elevation in his troponin he may further need consideration of an ischemic evaluation. Depending on his hospital course this may include cardiac catheterization but this will be discussed with him further. 8. Further recommendations will be made based on the hospital course. Thank you for allowing me to see Jose Sutherland. If you have any questions, please do not hesitate to call. Hieu Lowery DO VGP/BT /11:14 PM /6:22 AM
[2016-11-11] MEDS: CHLORHEXIDINE 0.12% (ORAL KIT) 15 ML CUP MT SCH ×2 (08:00→20:00)
[2016-11-11] MEDS: ATORVASTATIN 40 MG TAB PO SCH (08:55)
[2016-11-11] MEDS: SACUBITRIL/VALSARTAN 24 MG-26 MG TAB PO SCH ×2 (08:55→20:14)
[2016-11-11] MEDS: ASPIRIN 81 MG CHEW TAB CHEW SCH (08:55)
[2016-11-11] MEDS: FUROSEMIDE 20 MG TAB PO SCH (08:55)
[2016-11-11] MEDS: CHOLECALCIFEROL (VIT D3) 1000 UNIT TAB PO SCH (08:56)
[2016-11-11] MEDS: ISOSORBIDE MONONITRATE 30 MG TAB PO SCH (08:56)
[2016-11-11] MEDS: THIAMINE HCL 100 MG TAB PO SCH (08:56)
[2016-11-11] MEDS: SOTALOL HCL 80 MG TAB PO SCH ×2 (08:56→20:14)
[2016-11-11] MEDS: AZITHROMYCIN INJ 500 MG in SODIUM CHLOR 0.9% 250 ML INJ 250 ML IV SCH (08:57)
[2016-11-11] MEDS: PANTOPRAZOLE SODIUM 40 MG VIAL IV SCH (08:58)
[2016-11-11] MEDS: SODIUM CHLOR 0.9% 1000 ML INJ 1,000 ML IV SCH ×2 (09:12→17:45)
[2016-11-11] MEDS: MORPHINE SULFATE 4 MG/ML INJ IV PRN (09:13)
--- NOTE | 2016-11-11 10:42 | PD.CARD.PN ---
Subjective Subjective Remarks Doing well Laying somewhat flat and breathing ok Objective Medications Current Medications Medications (Trade) Dose Ordered Sig/Yakelin Route Start Time Stop Time Status Last Admin Sodium Chloride 2 ml 2 ml UNSCH PRN IVF 11/10/16 06:30 11/10/16 06:45 Nitroglycerin/ Dextrose 250 ml @ 0 mls/hr TITRATE IV 11/10/16 08:00 11/10/16 11:56 Cefepime HCl 2000 mg/Sodium Chloride 100 ml @ 200 mls/hr Q8H IV 11/10/16 10:00 11/11/16 09:12 (Zithromax Inj/ NS 250 ml Inj) 250 ml @ 250 mls/hr Q24H IV 11/11/16 09:00 11/11/16 08:57 (Morphine Inj) 2 mg Q2H PRN IV 11/10/16 09:00 11/11/16 09:13 (Peridex 0.12% Liq) 15 ml BID@08,20 MT 11/10/16 20:00 11/10/16 20:00 (Protonix Inj) 40 mg DAILY IV 11/10/16 09:00 11/11/16 08:58 Miscellaneous Information 1 Q361D XX 11/10/16 09:00 11/10/16 09:00 (Chlorhexidine 2% Cloth) 3 pack Taper DAILY@04 TOP 11/11/16 04:00 11/07/17 03:59 11/11/16 03:56 (Chlorhexidine 2% Cloth) 3 pack UNSCH PRN TOP 11/10/16 09:00 (Aspirin Chew) 81 mg DAILY CHEW 11/10/16 09:00 11/11/16 08:55 (Lipitor) 40 mg DAILY PO 11/10/16 09:00 11/11/16 08:55 (Vitamin D3) 1,000 units DAILY PO 11/10/16 09:00 11/11/16 08:56 (Lasix) 20 mg DAILY PO 11/11/16 09:00 Future Hold 11/11/16 08:55 (Imdur) 30 mg DAILY PO 11/10/16 09:30 11/11/16 08:56 (Nitrostat Sl) 0.4 mg Q3H PRN SL 11/10/16 09:00 11/10/16 09:54 (Entresto 24-26 Mg) 1 tab BID PO 11/10/16 09:00 11/11/16 08:55 (Betapace) 80 mg BID PO 11/10/16 09:00 11/11/16 08:56 (Vitamin B1) 250 mg DAILY PO 11/10/16 09:30 11/11/16 08:56 (NovoLOG SUPPLEMENTAL SCALE) 1 Q4HR SQ 11/10/16 12:00 11/11/16 03:49 (D50w (Vial) Inj) 50 ml UNSCH PRN IV PUSH 11/10/16 09:45 Glucagon 1 mg 1 mg UNSCH PRN OTHER 11/10/16 09:45 (NS 1000 ml Inj) 1,000 ml @ 50 mls/hr Q20H IV 11/10/16 14:00 11/11/16 13:59 11/11/16 09:12 Methylprednisolone Sodium Succinate 60 mg 60 mg Q12H IV PUSH 11/10/16 18:00 11/11/16 03:53 Heparin Sodium/ Dextrose 250 ml @ 0 mls/hr TITRATE IV 11/10/16 13:30 11/10/16 16:17 (Mvi-12 Inj/ Thiamine Inj/ Folvite Inj/NS 500 ml Inj) 511.2 ml @ 125 mls/hr Q24H IV 11/10/16 16:00 11/10/16 14:55 Vital Signs / I&O Vital Signs Date Time Temp Pulse Resp B/P Pulse Ox O2 Delivery O2 Flow Rate FiO2 11/11/16 10:00 80 11/11/16 09:18 16 11/11/16 08:03 96 Nasal Cannula 3.00 11/11/16 08:00 78 11/11/16 08:00 98.1 78 18 108/69 98 11/11/16 07:00 99 Nasal Cannula 4.00 11/11/16 06:00 86 11/11/16 04:00 97.8 71 16 104/66 100 11/11/16 04:00 71 11/11/16 03:41 98 Nasal Cannula 4.00 11/11/16 02:00 68 11/11/16 00:00 98.6 70 17 101/65 98 11/11/16 00:00 70 11/10/16 22:00 72 11/10/16 21:25 98 Nasal Cannula 4.00 11/10/16 20:00 76 11/10/16 20:00 97.6 76 17 113/70 96 11/10/16 19:00 96 Bi-Pap 30 11/10/16 18:00 74 11/10/16 16:00 98.4 76 18 110/69 99 11/10/16 16:00 74 11/10/16 14:00 80 11/10/16 13:21 20 11/10/16 12:30 97 Bi-Pap 30 11/10/16 12:00 98.9 96 24 123/71 97 11/10/16 12:00 93 Nasal Cannula 4.00 11/10/16 12:00 96 11/10/16 12:00 98 40 I/O 11/10/16 11/10/16 11/10/16 11/11/16 11/11/16 11/11/16 07:00 15:00 23:00 07:00 15:00 23:00 Intake Total 120 ml 907 ml 607 ml Output Total 500 ml 600 ml 500 ml Balance -380 ml 307 ml 107 ml Intake Oral 0 ml 0 ml IV Total 120 ml 907 ml 607 ml Output Urine Total 500 ml 600 ml 500 ml Physical Exam GENERAL: NAD, AAOx3 SKIN: Warm and dry. HEAD: Atraumatic. Normocephalic. EYES: Pupils equal and round. No scleral icterus. No injection or drainage. ENT: No nasal bleeding or discharge. Mucous membranes pink and moist. NECK: Trachea midline. No JVD. CARDIOVASCULAR: Regular rate and rhythm. RESPIRATORY: No accessory muscle use. Decreased breath sounds bilaterally GASTROINTESTINAL: Abdomen soft, non-tender, nondistended. Hepatic and splenic margins not palpable. MUSCULOSKELETAL: Extremities without clubbing, cyanosis, or edema. No obvious deformities. NEUROLOGICAL: Awake and alert. No obvious cranial nerve deficits. Motor grossly within normal limits. Five out of 5 muscle strength in the arms and legs. Normal speech. PSYCHIATRIC: Appropriate mood and affect; insight and judgment normal. Laboratory Laboratory Tests Test 11/10/16 11/10/16 11/11/16 15:51 20:23 02:45 White Blood Count 10.7 TH/MM3 12.3 TH/MM3 Red Blood Count 3.28 MIL/MM3 3.24 MIL/MM3 Hemoglobin 10.3 GM/DL 10.2 GM/DL Hematocrit 31.2 % 30.8 % Mean Corpuscular Volume 95.1 FL 95.2 FL Mean Corpuscular Hemoglobin 31.4 PG 31.5 PG Mean Corpuscular Hemoglobin 33.0 % 33.1 % Concent Red Cell Distribution Width 18.3 % 18.7 % Platelet Count 114 TH/MM3 126 TH/MM3 Mean Platelet Volume 8.6 FL 9.1 FL Prothrombin Time 13.4 SEC Prothromb Time International 1.2 RATIO Ratio Activated Partial 31.5 SEC 50.1 SEC 58.0 SEC Thromboplast Time Lactic Acid Level 1.2 mmol/L Troponin I 1.02 NG/ML 0.97 NG/ML Magnesium Level 1.6 MG/DL Neutrophils (%) (Auto) 95.9 % Lymphocytes (%) (Auto) 2.1 % Monocytes (%) (Auto) 1.6 % Eosinophils (%) (Auto) 0.0 % Basophils (%) (Auto) 0.4 % Neutrophils # (Auto) 11.8 TH/MM3 Lymphocytes # (Auto) 0.3 TH/MM3 Monocytes # (Auto) 0.2 TH/MM3 Eosinophils # (Auto) 0.0 TH/MM3 Basophils # (Auto) 0.1 TH/MM3 CBC Comment DIFF FINAL Differential Comment Sodium Level 126 MEQ/L Potassium Level 4.5 MEQ/L Chloride Level 89 MEQ/L Carbon Dioxide Level 28.2 MEQ/L Anion Gap 9 MEQ/L Blood Urea Nitrogen 21 MG/DL Creatinine 0.97 MG/DL Estimat Glomerular Filtration 78 ML/MIN Rate Random Glucose 214 MG/DL Calcium Level 7.6 MG/DL Total Bilirubin 0.9 MG/DL Aspartate Amino Transf 56 U/L (AST/SGOT) Alanine Aminotransferase 52 U/L (ALT/SGPT) Alkaline Phosphatase 83 U/L Total Protein 7.2 GM/DL Albumin 2.9 GM/DL Assessment and Plan Problem List: (1) CAD (coronary artery disease) (2) Hx of CABG (3) Acute hyponatremia (4) COPD (chronic obstructive pulmonary disease) (5) Hyperlipidemia (6) HCAP (healthcare-associated pneumonia) (7) Systolic heart failure, chronic (8) EtOH dependence (9) COPD with exacerbation (10) History of CHF (congestive heart failure) (11) Ischemic cardiomyopathy (12) Diabetes mellitus, type 2 (13) Alcoholic cirrhosis (14) Hyponatremia (15) Non-sustained ventricular tachycardia Assessment and Plan 1) NSTEMI Plan cardiac catheterization in the morning, NPO after midnight Will await morning labs to make sure sodium level stable 2) Con't diuresis 3) No further wide complex tachycardia noted Previous appears to be atrial fibrillation 4) Con't ASA/Nitro/Heparin/Statin/Entresto Problem Qualifiers (1) CAD (coronary artery disease): (2) EtOH dependence: Qualified Code: F10.29 - Alcohol dependence with unspecified alcohol-induced disorder (3) Diabetes mellitus, type 2: Hieu Jackson DO Nov 11, 2016 10:42
[2016-11-11] MEDS: HEPARIN-D5W 25,000 U/250 ML 250 ML IV SCH (11:57)
[2016-11-11] MEDS: MULTIVITAMIN INJ 10 ML, THIAMINE INJ 100 MG, FOLIC ACID INJ 1 MG in SODIUM CHLORID 0.9%... IV SCH (15:34)
--- NOTE | 2016-11-11 16:10 | HHI.CCPN ---
Subjective Remarks/Hospital Course Patient is a 66-year-old male with past medical history significant for coronary artery disease, ischemic cardiomyopathy, ventricular tachycardia, status post AICD, liver cirrhosis, continued alcohol use, COPD who presented to the emergency department with one-day duration of chest pain and shortness of breath. He woke up with shortness of breath and chest pain, took one sublingual nitroglycerin and called ambulance services. He was given 2 additional sublingual nitroglycerin, aspirin and 162 mg by mouth by EMS. He had oxygen saturation 89%, he was placed on nonrebreather mask and transported to [place] ED. He quit smoking about one year ago but continues to drink 2 beers daily. The patient was placed on BiPAP with some improvement in symptoms. Chest x-ray showed right lower lobe infiltrate concerning for healthcare associated pneumonia as he was recently admitted and discharged from hospital (10/20/16-10/23/16 for chest pain COPD and CHF). Patient received Rocephin and azithromycin in the ED. His lab work showed WBC 13.4 with left shift, sodium was 123 potassium 5.5, lactic acid was 4.9 and BNP was 1185. I evaluated the patient in the ICU. He is in moderate distress on BiPAP. Intermittent chest pain requiring nitroglycerin-we'll start on nitro drip. Initial troponin is negative. I have placed him on cefepime and Flagyl for healthcare associated pneumonia. Careful hydration with normal saline to correct hyponatremia. Patient will be continued on aspirin and sotalol, start IV heparin until ACS is ruled out. 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 Also patient developed possible nonsustained V. tach in the ICU SUBJ 11/11/16: Complaints of intermittent chest pain. Na 126. Troponin 0.9. Will dc nitro gtt. Tremulous. Drinks 4-6 beers daily. Start [facility] protocol Objective Vital Signs Date Time Temp Pulse Resp B/P Pulse Ox O2 Delivery O2 Flow Rate FiO2 11/11/16 14:00 72 11/11/16 12:00 98.3 26 96/59 98 11/11/16 08:03 Nasal Cannula 3.00 11/10/16 19:00 30 Intake and Output 11/10/16 11/10/16 11/11/16 08:00 16:00 00:00 Intake Total 120 ml 907 ml Output Total 500 ml 600 ml Balance -380 ml 307 ml Result Diagram: 11/11/16 0245 11/11/16 0245 Imaging Right lower lung infiltrate Objective Remarks GENERAL: This is a well-nourished, well-developed patient, in mild distress, tremulous SKIN: Warm and dry HEAD: Atraumatic. Normocephalic. EYES: Pupils equal round and reactive. Extraocular motions intact. ENT: Nose without bleeding NECK: Trachea midline. No JVD or lymphadenopathy. CARDIOVASCULAR: Regular rate and rhythm without murmurs, gallops, or rubs. RESPIRATORY: Breath sounds equal bilaterally. Crackles at right base GASTROINTESTINAL: Abdomen soft, no tenderness. No organomegaly MUSCULOSKELETAL: Extremities without clubbing, cyanosis, or edema. NEUROLOGICAL: Awake and alert. Motor and sensory grossly within normal limits. Sensations preserved A/P Assessment and Plan NEURO: Alcohol dependence - Minimize sedating medications, but start CIWA protocol - As needed morphine for pain and anxiety - Watch for alcohol withdrawal, supplement multivitamin thiamine folic acid RESP: Acute hypoxemic respiratory failure Right lower lobe pneumonia COPD exacerbation - Use BiPAP prn, now on NC - DuoNeb every 6 hours and when necessary - IV Solu-Medrol 60 mg every 12 (On prednisone at home) - Broad-spectrum antibiotic with cefepime and Flagyl - Follow-up chest x-ray improving infiltrates CV: ACS/NSTEMI Probable CHF/elevated BNP Ischemic cardiomyopathy EF 25% Coronary artery disease Ventricular tachycardia status post AICD - Wean to DC nitroglycerin, continue aspirin. Use prn s/l nitro - IV heparin. Cardiology Dr. Jackson. Cath tomorrow - Continue home meds including Entresto, sotalol, Lipitor, nitroglycerin, aspirin. Hold Imdur - Lasix on hold. NS at 50 ml per hour GI: Liver cirrhosis - Advised to dtop alcohol consumption. - Nothing by mouth, IV Protonix. Start heart healthy diet /Endo - Monitor renal function closely. Murray catheter. - Gentle hydration with normal saline IV fluid at 50 ml per hour ID: Severe sepsis Lactic acidosis Right lower lobe pneumonia - Source of sepsis most likely right lower lobe pneumonia - Continue cefepime Flagyl, and 1 dose of vancomycin HEME: - Monitor CBC, CMP, coags ENDO: Hyponatremia/hyperkalemia - On chronic steroids, IV Solu-Medrol 60 mg every 8 hours PROPH: - Bilateral lower extremity SCDs. IV Heparin, IV Protonix LINES: - Utilize peripheral IVs, central line if needed CC time 38 min Nikki Escobar MD Nov 11, 2016 16:10
[2016-11-11] MEDS ORDERED: FLUMAZENIL 0.5 MG/5 ML VIAL IV PUSH PRN (16:15)
[2016-11-11] MEDS ORDERED: LORazepam 1 MG TAB PO PRN (16:15)
[2016-11-11] MEDS ORDERED: LORazepam 2 MG TAB PO PRN (16:15)
[2016-11-11] MEDS ORDERED: LORazepam 2 MG/ML VIAL IV PUSH PRN (16:15)
[2016-11-11] MEDS: LORazepam 2 MG/ML VIAL IV PUSH PRN ×4 (20:14→21:47)
[2016-11-11] MEDS: SODIUM CHLORIDE 0.9% FLUSH 10 ML FLUSH IVF PRN (20:15)
[2016-11-11] MEDS: DEXMEDETOMIDINE INJ 200 MCG in SODIUM CHLORIDE 0.9% INJ 50 ML IV SCH (22:37)
[2016-11-11] MEDS: LORazepam 2 MG/ML VIAL IV PUSH SCH (23:00)
[2016-11-12] VITALS (21 sets, daily range): BP systolic 83–127; BP diastolic 50–83; PULSE 60–83; RESP 16–33; TEMP 97.6–98.4; O2SAT 82–100
[2016-11-12] MEDS: LORazepam 2 MG/ML VIAL IV PUSH SCH ×8 (01:00→08:06)
[2016-11-12] MEDS: CEFEPIME INJ 2,000 MG in SODIUM CHLORIDE 0.9% INJ 100 ML IV SCH ×3 (01:48→17:59)
[2016-11-12] MEDS: DEXMEDETOMIDINE INJ 200 MCG in SODIUM CHLORIDE 0.9% INJ 50 ML IV SCH ×5 (01:48→21:29)
[2016-11-12] MEDS: CHLORHEXIDINE GLUCONATE 2 % 1 PACK (2 CLOTHS) TOP SCH (02:06)
[2016-11-12] MEDS: RESP: ALBUTEROL 2.5 MG/IPRATROPIUM 0.5 MG NEB (SCH) NEB ×4 (04:00→21:57)
[2016-11-12] MEDS: INSULIN ASPART SUPPLEMENTAL SCALE SQ SCH ×6 (04:00→20:00)
[2016-11-12] MEDS: methylPREDNISolone SOD SUCC 125 MG/2 ML VIAL IV PUSH SCH ×2 (04:13→17:59)
--- NOTE | 2016-11-12 06:10 | RADRPT ---
EXAM DATE/TIME: 11/12/2016 04:26 [place] COMPARISON: CHEST SINGLE AP, November 11, 2016, 4:57. INDICATIONS : Shortness of breath, possible pulmonary disease. MEDICAL HISTORY : Chronic obstructive pulmonary disease. Congestive heart failure. Asthma SURGICAL HISTORY : Pacemaker. CABG. ENCOUNTER: Subsequent ACUITY: 3 days PAIN SCORE: Non-responsive. LOCATION: Bilateral chest FINDINGS: Stable cardiomegaly. Cardiac pacer leads in place. The lungs are symmetrically aerated and clear. CONCLUSION: The lungs are clear. Cardiomegaly. Gigi Hope MD on November 12, 2016 at 6:08 Board Certified Radiologist. This report was verified electronically.
[2016-11-12 06:30] LABS: AUTOMATED NEUTROPHIL # 8.3 TH/MM3 (1.8-7.7); BASOPHIL % 0.2 % (0.0-2.0); HEMATOCRIT 30.7 % (39.0-51.0); HEMO FLAGS DIFF FINAL; LYMPH % 1.6 % (9.0-44.0); LYMPHOCYTE # 0.1 TH/MM3 (1.0-4.8); MEAN CELL VOLUME 98.2 FL (80.0-100.0); MEAN CORPUSCULAR HGB CONC 31.5 % (32.0-36.0); MONO % 2.5 % (0.0-8.0); NEUT % 95.7 % (16.0-70.0); PLATELET COUNT 115 TH/MM3 (150-450); RED BLOOD COUNT 3.13 MIL/MM3 (4.50-5.90); RED CELL DISTRIBUTION WIDTH 18.5 % (11.6-17.2); WHITE BLOOD COUNT 8.7 TH/MM3 (4.0-11.0)
[2016-11-12 06:35] LABS: APTT (PATIENT) 67.6 SEC (24.3-30.1)
[2016-11-12 07:05] LABS: BICARBONATE 25.6 MEQ/L (21.0-32.0); CALCIUM-PROTEIN CORRECTED 7.6 MG/DL (8.5-10.1); MAGNESIUM 2.2 MG/DL (1.5-2.5); POTASSIUM 4.5 MEQ/L (3.5-5.1); TOTAL BILIRUBIN ADULT 0.7 MG/DL (0.2-1.0)
[2016-11-12] MEDS: CHLORHEXIDINE 0.12% (ORAL KIT) 15 ML CUP MT SCH ×2 (08:00→20:00)
[2016-11-12] MEDS: PANTOPRAZOLE SODIUM 40 MG VIAL IV SCH (08:06)
[2016-11-12] MEDS: SOTALOL HCL 80 MG TAB PO SCH ×2 (08:11→21:29)
[2016-11-12] MEDS: SACUBITRIL/VALSARTAN 24 MG-26 MG TAB PO SCH ×2 (08:11→21:29)
[2016-11-12] MEDS: ASPIRIN 81 MG CHEW TAB CHEW SCH (08:11)
[2016-11-12] MEDS: AZITHROMYCIN INJ 500 MG in SODIUM CHLOR 0.9% 250 ML INJ 250 ML IV SCH (08:11)
[2016-11-12] MEDS: ATORVASTATIN 40 MG TAB PO SCH (08:12)
[2016-11-12] MEDS: ISOSORBIDE MONONITRATE 30 MG TAB PO SCH (08:12)
[2016-11-12] MEDS: THIAMINE HCL 100 MG TAB PO SCH (08:13)
[2016-11-12] MEDS: CHOLECALCIFEROL (VIT D3) 1000 UNIT TAB PO SCH (08:13)
[2016-11-12 08:56] LABS: BLOOD GAS BASE EXCESS -1.8 mmol/L (-2-2); BLOOD GAS CARBOXYHEMOGLOBIN 1.8 % (0-4); BLOOD GAS HCO3 23 mmol/L (22-26); BLOOD GAS METHEMOGLOBIN 0.7 % (0-2); BLOOD GAS O2 HGB SATURATION 96 % (90-100); BLOOD GAS OXYGEN CONTENT 13.5 Vol % (12.0-20.0); BLOOD GAS PCO2 44 mmHg (38-42); BLOOD GAS PO2 117 mmHg (61-120); BLOOD GAS TOTAL HGB 9.8 G/DL (12.0-16.0); CRITICAL VALUE NO; DRAW SITE RT RADIAL; FIO2 50 %; NUMBER OF ARTERIAL PUNCTURES 1; OXYGEN DEVICE VENTI; STAT NO; TEMP CORR TO 98.6; ULNAR PULSE PRESENT
--- NOTE | 2016-11-12 09:07 | EKG ---
Date Performed: 11/10/2016 Time Performed: 11:57:42 PTAGE: 66 years EKG: Demand pacing Pacemaker rhythm - no further analysis Abnormal ECG Compared to prior tracing from 11/10/16 no significant change DOCTOR: Hieu Jackson Interpretating Date/Time 11/12/2016 09:00:51
--- NOTE | 2016-11-12 10:58 | HHI.CCPN ---
Subjective Remarks/Hospital Course Patient is a 66-year-old male with past medical history significant for coronary artery disease, ischemic cardiomyopathy, ventricular tachycardia, status post AICD, liver cirrhosis, continued alcohol use, COPD who presented to the emergency department with one-day duration of chest pain and shortness of breath. He woke up with shortness of breath and chest pain, took one sublingual nitroglycerin and called ambulance services. He was given 2 additional sublingual nitroglycerin, aspirin and 162 mg by mouth by EMS. He had oxygen saturation 89%, he was placed on nonrebreather mask and transported to [place] ED. He quit smoking about one year ago but continues to drink 2 beers daily. The patient was placed on BiPAP with some improvement in symptoms. Chest x-ray showed right lower lobe infiltrate concerning for healthcare associated pneumonia as he was recently admitted and discharged from hospital (10/20/16-10/23/16 for chest pain COPD and CHF). Patient received Rocephin and azithromycin in the ED. His lab work showed WBC 13.4 with left shift, sodium was 123 potassium 5.5, lactic acid was 4.9 and BNP was 1185. I evaluated the patient in the ICU. He is in moderate distress on BiPAP. Intermittent chest pain requiring nitroglycerin-we'll start on nitro drip. Initial troponin is negative. I have placed him on cefepime and Flagyl for healthcare associated pneumonia. Careful hydration with normal saline to correct hyponatremia. Patient will be continued on aspirin and sotalol, start IV heparin until ACS is ruled out. 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 Also patient developed possible nonsustained V. tach in the ICU SUBJ 11/11/16: Complaints of intermittent chest pain. Na 126. Troponin 0.9. Will dc nitro gtt. Tremulous. Drinks 4-6 beers daily. Start CIWA protocol 11/12: Patient developed more pronounced withdrawal symptoms overnight. Currently on Precedex and getting when necessary benzodiazepines. Patient is lethargic intermittently agitated. Oriented to person only Objective Vital Signs Date Time Temp Pulse Resp B/P Pulse Ox O2 Delivery O2 Flow Rate FiO2 11/12/16 09:28 98 Venturi Mask 6.00 50 11/12/16 08:00 64 11/12/16 04:00 98.4 27 11/12/16 00:00 83/51 Intake and Output 11/11/16 11/11/16 11/12/16 08:00 16:00 00:00 Intake Total 607 ml 619 ml 792 ml Output Total 500 ml 725 ml 350 ml Balance 107 ml -106 ml 442 ml Result Diagram: 11/12/16 0559 11/12/16 0525 Other Results Laboratory Tests Test 11/12/16 08:50 Blood Gas Puncture Site RT RADIAL Blood Gas Patient Temperature 98.6 Blood Gas HCO3 23 mmol/L (22-26) Blood Gas Base Excess -1.8 mmol/L (-2-2) Blood Gas Oxygen Saturation 96 % (90-100) Arterial Blood pH 7.34 (7.380-7.420) Arterial Blood Partial 44 mmHg (38-42) Pressure CO2 Arterial Blood Partial 117 mmHg Pressure O2 (61-120) Arterial Blood Oxygen Content 13.5 Vol % (12.0-20.0) Arterial Blood 1.8 % (0-4) Carboxyhemoglobin Arterial Blood Methemoglobin 0.7 % (0-2) Blood Gas Hemoglobin 9.8 G/DL (12.0-16.0) Oxygen Delivery Device VENTI Blood Gas Inspired Oxygen 50 % Imaging Right lower lung infiltrate Objective Remarks GENERAL: This is a well-nourished, well-developed patient, in moderate distress , intermittently agitated SKIN: Warm and dry HEAD: Atraumatic. Normocephalic. EYES: Pupils equal round and reactive. Extraocular motions intact. ENT: Nose without bleeding NECK: Trachea midline. No JVD or lymphadenopathy. CARDIOVASCULAR: Tachycardic rate rate and rhythm without murmurs, gallops, or rubs. RESPIRATORY: Breath sounds equal bilaterally. Crackles at right base GASTROINTESTINAL: Abdomen soft, no tenderness. No organomegaly MUSCULOSKELETAL: Extremities without clubbing, cyanosis, or edema. NEUROLOGICAL: Lethargic but intermittently agitated. Tremulous bilateral upper extremities. Oriented to person, moves all extremities nonfocal A/P Assessment and Plan NEURO: Alcohol withdrawal syndrome Alcohol dependence - Started on Precedex. On CIWA protocol also - Continue multivitamin thiamine folic acid RESP: Acute hypoxemic respiratory failure Right lower lobe pneumonia COPD exacerbation - Use BiPAP prn, now on VM - DuoNeb every 6 hours and when necessary - IV Solu-Medrol 60 mg every 12 (On prednisone at home) - Broad-spectrum antibiotic with cefepime and Flagyl - Follow-up chest x-ray improving infiltrates - If alcohol withdrawal not controlled adequately patient may need intubation and mechanical ventilation CV: ACS/NSTEMI Probable CHF/elevated BNP Ischemic cardiomyopathy EF 25% Coronary artery disease Ventricular tachycardia status post AICD - Continue aspirin. Use prn s/l nitro - Continue IV heparin. Cardiology Dr. Jackson. Cath tomorrow if withdrawal symptoms better controlled - Continue home meds including Entresto, sotalol, Lipitor, nitroglycerin, aspirin. Hold Imdur - Lasix on hold. NS at 50 ml per hour to correct hyponatremia GI: Liver cirrhosis - Nothing by mouth, IV Protonix. - NGT and tube feeding if withdrawal symptoms not improving /Endo - Monitor renal function closely. Murray catheter. - Gentle hydration with normal saline IV fluid at 50 ml per hour ID: Severe sepsis-improving Lactic acidosis Right lower lobe pneumonia - Source of sepsis most likely right lower lobe pneumonia - Continue cefepime Flagyl, and 1 dose of vancomycin given HEME: - Monitor CBC, CMP, coags - IV Heparin ENDO: Hyponatremia/hyperkalemia - On chronic steroids, IV Solu-Medrol 60 mg every 8 hours PROPH: - Bilateral lower extremity SCDs. IV Heparin, IV Protonix LINES: - Utilize peripheral IVs, central line if needed CC time 35 min She remains critically ill now with R Jaya withdrawal. With sepsis, respiratory failure and NSTEMI now complicated with alcohol withdrawal symptoms if not improving sufficiently, will need endotracheal intubation and stabilization Nikki Escobar MD Nov 12, 2016 10:58
[2016-11-12] MEDS: SODIUM CHLOR 0.9% 1000 ML INJ 1,000 ML IV SCH (11:41)
[2016-11-12] MEDS: HEPARIN-D5W 25,000 U/250 ML 250 ML IV SCH (11:53)
--- NOTE | 2016-11-12 12:07 | PD.CARD.PN ---
Subjective Subjective Remarks This morning appears agitated and lethargic Concern for ETOH withdrawal Increased need for oxygen with agitation Objective Medications Current Medications Medications (Trade) Dose Ordered Sig/Yakelin Route Start Time Stop Time Status Last Admin Sodium Chloride 2 ml 2 ml UNSCH PRN IVF 11/10/16 06:30 11/11/16 20:15 Nitroglycerin/ Dextrose 250 ml @ 0 mls/hr TITRATE IV 11/10/16 08:00 11/10/16 11:56 Cefepime HCl 2000 mg/Sodium Chloride 100 ml @ 200 mls/hr Q8H IV 11/10/16 10:00 11/12/16 11:41 (Zithromax Inj/ NS 250 ml Inj) 250 ml @ 250 mls/hr Q24H IV 11/11/16 09:00 11/12/16 08:11 (Morphine Inj) 2 mg Q2H PRN IV 11/10/16 09:00 11/11/16 09:13 (Peridex 0.12% Liq) 15 ml BID@08,20 MT 11/10/16 20:00 11/11/16 20:00 (Protonix Inj) 40 mg DAILY IV 11/10/16 09:00 11/12/16 08:06 Miscellaneous Information 1 Q361D XX 11/10/16 09:00 11/10/16 09:00 (Chlorhexidine 2% Cloth) 3 pack Taper DAILY@04 TOP 11/11/16 04:00 11/07/17 03:59 11/12/16 02:06 (Chlorhexidine 2% Cloth) 3 pack UNSCH PRN TOP 11/10/16 09:00 (Aspirin Chew) 81 mg DAILY CHEW 11/10/16 09:00 11/11/16 08:55 (Lipitor) 40 mg DAILY PO 11/10/16 09:00 11/11/16 08:55 (Vitamin D3) 1,000 units DAILY PO 11/10/16 09:00 11/11/16 08:56 (Lasix) 20 mg DAILY PO 11/11/16 09:00 Hold 11/11/16 08:55 (Imdur) 30 mg DAILY PO 11/10/16 09:30 11/11/16 08:56 (Nitrostat Sl) 0.4 mg Q3H PRN SL 11/10/16 09:00 11/10/16 09:54 (Entresto 24-26 Mg) 1 tab BID PO 11/10/16 09:00 11/11/16 20:14 (Betapace) 80 mg BID PO 11/10/16 09:00 11/11/16 20:14 (Vitamin B1) 250 mg DAILY PO 11/10/16 09:30 11/11/16 08:56 (NovoLOG SUPPLEMENTAL SCALE) 1 Q4HR SQ 11/10/16 12:00 11/12/16 11:54 (D50w (Vial) Inj) 50 ml UNSCH PRN IV PUSH 11/10/16 09:45 (Glucagon Inj) 1 mg UNSCH PRN OTHER 11/10/16 09:45 Methylprednisolone Sodium Succinate 60 mg 60 mg Q12H IV PUSH 11/10/16 18:00 11/12/16 04:13 Heparin Sodium/ Dextrose 250 ml @ 0 mls/hr TITRATE IV 11/10/16 13:30 11/12/16 11:53 Multivitamins 10 ml/Thiamine HCl 100 mg/Folic Acid 1 mg/Sodium Chloride 511.2 ml @ 125 mls/hr Q24H IV 11/10/16 16:00 11/11/16 15:34 (NS 1000 ml Inj) 1,000 ml @ 50 mls/hr Q20H IV 11/11/16 16:15 11/12/16 11:41 (Romazicon Inj) 0.2 mg Q1M PRN IV PUSH 11/11/16 16:15 (Ativan) 1 mg Q4H PRN PO 11/11/16 16:15 11/11/16 17:45 (Ativan Inj) 1 mg Q4H PRN IV PUSH 11/11/16 16:15 11/11/16 21:04 (Ativan) 2 mg Q2H PRN PO 11/11/16 16:15 (Ativan Inj) 2 mg Q2H PRN IV PUSH 11/11/16 16:15 (Ativan Inj) 2 mg Q1H PRN IV PUSH 11/11/16 16:15 Lorazepam 2 mg 2 mg Q15M PRN IV PUSH 11/11/16 16:15 11/11/16 21:47 (Precedex Inj/NS Inj) 52 ml @ 0 mls/hr TITRATE IV 11/11/16 22:15 11/12/16 08:45 Vital Signs / I&O Vital Signs Date Time Temp Pulse Resp B/P Pulse Ox O2 Delivery O2 Flow Rate FiO2 11/12/16 10:00 80 11/12/16 09:28 98 Venturi Mask 6.00 50 11/12/16 08:00 97 Venturi Mask 6.00 11/12/16 08:00 64 11/12/16 06:00 60 11/12/16 04:00 98.4 60 27 97 11/12/16 04:00 60 11/12/16 02:00 63 11/12/16 00:00 97.6 71 27 83/51 95 11/12/16 00:00 71 11/11/16 22:00 102 11/11/16 20:00 93 11/11/16 20:00 98.4 71 18 95/63 95 11/11/16 19:05 98 Nasal Cannula 3.00 11/11/16 19:00 98 Nasal Cannula 4.00 11/11/16 18:00 84 11/11/16 16:00 71 11/11/16 16:00 98.8 71 18 95/63 95 11/11/16 14:00 72 I/O 11/11/16 11/11/16 11/11/16 11/12/16 11/12/16 11/12/16 07:00 15:00 23:00 07:00 15:00 23:00 Intake Total 607 ml 619 ml 792 ml 630 ml Output Total 500 ml 725 ml 350 ml 1000 ml Balance 107 ml -106 ml 442 ml -370 ml Intake Oral 0 ml 0 ml 0 ml IV Total 607 ml 619 ml 792 ml 630 ml Output Urine Total 500 ml 725 ml 350 ml 1000 ml # Bowel Movements 0 1 0 Physical Exam GENERAL: Agitated SKIN: Warm and dry. HEAD: Atraumatic. Normocephalic. EYES: Pupils equal and round. No scleral icterus. No injection or drainage. ENT: No nasal bleeding or discharge. Mucous membranes pink and moist. NECK: Trachea midline. No JVD. CARDIOVASCULAR: Regular rate and rhythm. RESPIRATORY: No accessory muscle use. Decreased breath sounds bilaterally GASTROINTESTINAL: Abdomen soft, non-tender, nondistended. Hepatic and splenic margins not palpable. MUSCULOSKELETAL: Extremities without clubbing, cyanosis, or edema. No obvious deformities. NEUROLOGICAL: Awake and alert. No obvious cranial nerve deficits. Motor grossly within normal limits. Five out of 5 muscle strength in the arms and legs. Normal speech. PSYCHIATRIC: Appropriate mood and affect; insight and judgment normal. Laboratory Laboratory Tests Test 11/12/16 11/12/16 11/12/16 05:25 05:59 08:50 Sodium Level 132 MEQ/L Potassium Level 4.5 MEQ/L Chloride Level 95 MEQ/L Carbon Dioxide Level 25.6 MEQ/L Anion Gap 11 MEQ/L Blood Urea Nitrogen 33 MG/DL Creatinine 1.08 MG/DL Estimat Glomerular Filtration 69 ML/MIN Rate Random Glucose 174 MG/DL Calcium Level 7.4 MG/DL Protein Corrected Calcium 7.6 MG/DL Magnesium Level 2.2 MG/DL Total Bilirubin 0.7 MG/DL Aspartate Amino Transf 46 U/L (AST/SGOT) Alanine Aminotransferase 45 U/L (ALT/SGPT) Alkaline Phosphatase 72 U/L Total Protein 6.7 GM/DL Albumin 2.8 GM/DL White Blood Count 8.7 TH/MM3 Red Blood Count 3.13 MIL/MM3 Hemoglobin 9.7 GM/DL Hematocrit 30.7 % Mean Corpuscular Volume 98.2 FL Mean Corpuscular Hemoglobin 31.0 PG Mean Corpuscular Hemoglobin 31.5 % Concent Red Cell Distribution Width 18.5 % Platelet Count 115 TH/MM3 Mean Platelet Volume 8.7 FL Neutrophils (%) (Auto) 95.7 % Lymphocytes (%) (Auto) 1.6 % Monocytes (%) (Auto) 2.5 % Eosinophils (%) (Auto) 0.0 % Basophils (%) (Auto) 0.2 % Neutrophils # (Auto) 8.3 TH/MM3 Lymphocytes # (Auto) 0.1 TH/MM3 Monocytes # (Auto) 0.2 TH/MM3 Eosinophils # (Auto) 0.0 TH/MM3 Basophils # (Auto) 0.0 TH/MM3 CBC Comment DIFF FINAL Differential Comment Activated Partial 67.6 SEC Thromboplast Time Blood Gas Puncture Site RT RADIAL Blood Gas Patient Temperature 98.6 Blood Gas HCO3 23 mmol/L Blood Gas Base Excess -1.8 mmol/L Blood Gas Oxygen Saturation 96 % Arterial Blood pH 7.34 Arterial Blood Partial 44 mmHg Pressure CO2 Arterial Blood Partial 117 mmHg Pressure O2 Arterial Blood Oxygen Content 13.5 Vol % Arterial Blood 1.8 % Carboxyhemoglobin Arterial Blood Methemoglobin 0.7 % Blood Gas Hemoglobin 9.8 G/DL Oxygen Delivery Device VENTI Blood Gas Inspired Oxygen 50 % Assessment and Plan Problem List: (1) CAD (coronary artery disease) (2) Hx of CABG (3) Acute hyponatremia (4) COPD (chronic obstructive pulmonary disease) (5) Hyperlipidemia (6) HCAP (healthcare-associated pneumonia) (7) Systolic heart failure, chronic (8) EtOH dependence (9) COPD with exacerbation (10) History of CHF (congestive heart failure) (11) Ischemic cardiomyopathy (12) Diabetes mellitus, type 2 (13) Alcoholic cirrhosis (14) Hyponatremia (15) Non-sustained ventricular tachycardia Assessment and Plan 1) NSTEMI Will hold on cardiac catheterization this morning due to agitation and lethargy, increased oxygen demand Overall concerned about the patient ability to lay still during and after the case Discussed with the patient's sister and Dr. Escobar, all in agreement 2) Con't diuresis 3) No further wide complex tachycardia noted Previous appears to be atrial fibrillation 4) Con't ASA/Nitro/Heparin/Statin/Entresto Problem Qualifiers (1) CAD (coronary artery disease): (2) EtOH dependence: Qualified Code: F10.29 - Alcohol dependence with unspecified alcohol-induced disorder (3) Diabetes mellitus, type 2: Hieu Jackson DO Nov 12, 2016 12:07
[2016-11-12] MEDS ORDERED: NITROGLYCERIN-D5W 50 MG/250 ML 250 ML IV SCH (12:45)
[2016-11-12] MEDS ORDERED: METOPROLOL TARTRATE 5 MG/5 ML VIAL IV PUSH ONE (12:45)
[2016-11-12] MEDS: MULTIVITAMIN INJ 10 ML, THIAMINE INJ 100 MG, FOLIC ACID INJ 1 MG in SODIUM CHLORID 0.9%... IV SCH (15:21)
[2016-11-12] MEDS: LORazepam 2 MG/ML VIAL IV PUSH PRN (21:15)
[2016-11-12] MEDS: DEXMEDETOMIDINE INJ 1,000 MCG in SODIUM CHLOR 0.9% 250 ML INJ 240 ML IV SCH (23:11)
[2016-11-13] VITALS (24 sets, daily range): BP systolic 80–123; BP diastolic 52–83; PULSE 64–91; RESP 15–41; TEMP 97.7–98.8; O2SAT 82–100
[2016-11-13] MEDS: INSULIN ASPART SUPPLEMENTAL SCALE SQ SCH ×6 (00:35→20:00)
[2016-11-13] MEDS: LORazepam 2 MG/ML VIAL IV PUSH PRN ×2 (00:45→05:16)
[2016-11-13] MEDS: CHLORHEXIDINE GLUCONATE 2 % 1 PACK (2 CLOTHS) TOP SCH (00:45)
[2016-11-13] MEDS: CEFEPIME INJ 2,000 MG in SODIUM CHLORIDE 0.9% INJ 100 ML IV SCH ×3 (00:45→18:21)
[2016-11-13] MEDS: RESP: ALBUTEROL 2.5 MG/IPRATROPIUM 0.5 MG NEB (SCH) NEB ×4 (03:26→20:06)
--- NOTE | 2016-11-13 04:31 | RADRPT ---
EXAM DATE/TIME: 11/13/2016 03:36 [facility] COMPARISON: CHEST SINGLE AP, November 12, 2016, 4:26. INDICATIONS : Evaluate for respiratory disease. MEDICAL HISTORY : Chronic obstructive pulmonary disease. Congestive heart failure. Asthma SURGICAL HISTORY : Pacemaker. CABG. ENCOUNTER: Subsequent ACUITY: 4 - 6 days PAIN SCORE: Non-responsive. LOCATION: chest FINDINGS: A single view of the chest demonstrates mild atelectatic changes/scarring left base. There may be brina e mild interstitial prominence particularly in the right lung possibly representing some degree of va scular congestion or volume overload. Heart size remains prominent. No associated effusions. Intact m edian sternotomy wires and surgical clips characteristic of prior CABG. Left subclavian bipolar pacer is radiographically intact. CONCLUSION: 1. Cardiomegaly with mild interstitial prominence suggesting some degree of vascular congestion/volum e overload. 2. Linear atelectasis/scar in the left base. Ari Kam MD on November 13, 2016 at 4:27 Board Certified Radiologist. This report was verified electronically.
[2016-11-13] MEDS: DEXMEDETOMIDINE INJ 1,000 MCG in SODIUM CHLOR 0.9% 250 ML INJ 240 ML IV SCH (05:03)
[2016-11-13] MEDS: methylPREDNISolone SOD SUCC 125 MG/2 ML VIAL IV PUSH SCH (05:04)
[2016-11-13] MEDS: CHLORHEXIDINE 0.12% (ORAL KIT) 15 ML CUP MT SCH ×2 (08:00→20:00)
--- NOTE | 2016-11-13 09:15 | PD.CARD.PN ---
Subjective Subjective Remarks No events overnight Still appears to be going through ETOH withdrawal On Precedex, but when aroused he's agitated and won't sit still Objective Medications Current Medications Medications (Trade) Dose Ordered Sig/Yakelin Route Start Time Stop Time Status Last Admin Sodium Chloride 2 ml 2 ml UNSCH PRN IVF 11/10/16 06:30 11/11/16 20:15 Cefepime HCl 2000 mg/Sodium Chloride 100 ml @ 200 mls/hr Q8H IV 11/10/16 10:00 11/13/16 00:45 (Zithromax Inj/ NS 250 ml Inj) 250 ml @ 250 mls/hr Q24H IV 11/11/16 09:00 11/12/16 08:11 (Morphine Inj) 2 mg Q2H PRN IV 11/10/16 09:00 11/11/16 09:13 (Peridex 0.12% Liq) 15 ml BID@08,20 MT 11/10/16 20:00 11/12/16 20:00 (Protonix Inj) 40 mg DAILY IV 11/10/16 09:00 11/12/16 08:06 Miscellaneous Information 1 Q361D XX 11/10/16 09:00 11/10/16 09:00 (Chlorhexidine 2% Cloth) 3 pack Taper DAILY@04 TOP 11/11/16 04:00 11/07/17 03:59 11/13/16 00:45 (Chlorhexidine 2% Cloth) 3 pack UNSCH PRN TOP 11/10/16 09:00 (Aspirin Chew) 81 mg DAILY CHEW 11/10/16 09:00 11/11/16 08:55 (Lipitor) 40 mg DAILY PO 11/10/16 09:00 11/11/16 08:55 (Vitamin D3) 1,000 units DAILY PO 11/10/16 09:00 11/11/16 08:56 (Lasix) 20 mg DAILY PO 11/11/16 09:00 Hold 11/11/16 08:55 (Imdur) 30 mg DAILY PO 11/10/16 09:30 11/11/16 08:56 (Nitrostat Sl) 0.4 mg Q3H PRN SL 11/10/16 09:00 11/10/16 09:54 (Entresto 24-26 Mg) 1 tab BID PO 11/10/16 09:00 11/12/16 21:29 (Betapace) 80 mg BID PO 11/10/16 09:00 11/12/16 21:29 (Vitamin B1) 250 mg DAILY PO 11/10/16 09:30 11/11/16 08:56 (NovoLOG SUPPLEMENTAL SCALE) 1 Q4HR SQ 11/10/16 12:00 11/13/16 05:15 (D50w (Vial) Inj) 50 ml UNSCH PRN IV PUSH 11/10/16 09:45 (Glucagon Inj) 1 mg UNSCH PRN OTHER 11/10/16 09:45 Methylprednisolone Sodium Succinate 60 mg 60 mg Q12H IV PUSH 11/10/16 18:00 11/13/16 05:04 Heparin Sodium/ Dextrose 250 ml @ 0 mls/hr TITRATE IV 11/10/16 13:30 11/12/16 11:53 (Mvi-12 Inj/ Thiamine Inj/ Folvite Inj/NS 500 ml Inj) 511.2 ml @ 125 mls/hr Q24H IV 11/10/16 16:00 11/12/16 15:21 (Romazicon Inj) 0.2 mg Q1M PRN IV PUSH 11/11/16 16:15 (Ativan) 1 mg Q4H PRN PO 11/11/16 16:15 11/11/16 17:45 (Ativan Inj) 1 mg Q4H PRN IV PUSH 11/11/16 16:15 11/11/16 21:04 (Ativan) 2 mg Q2H PRN PO 11/11/16 16:15 (Ativan Inj) 2 mg Q2H PRN IV PUSH 11/11/16 16:15 11/13/16 05:16 (Ativan Inj) 2 mg Q1H PRN IV PUSH 11/11/16 16:15 11/13/16 02:14 Lorazepam 2 mg 2 mg Q15M PRN IV PUSH 11/11/16 16:15 11/12/16 21:15 (Precedex Inj/NS 250 ml Inj) 250 ml @ 0 mls/hr TITRATE IV 11/12/16 23:00 11/13/16 05:03 Vital Signs / I&O Vital Signs Date Time Temp Pulse Resp B/P Pulse Ox O2 Delivery O2 Flow Rate FiO2 11/13/16 07:25 98 Venturi Mask 6.00 35 11/13/16 07:00 100 Venturi Mask 35 11/13/16 06:00 78 11/13/16 04:00 78 11/13/16 04:00 98.4 78 21 120/83 99 11/13/16 03:27 99 Venturi Mask 35 11/13/16 02:40 Venturi Mask 6.00 35 11/13/16 02:00 79 11/13/16 01:14 100 Venturi Mask 35 11/13/16 00:05 97 Venturi Mask 6.00 35 11/13/16 00:00 79 11/13/16 00:00 98.5 79 22 123/61 11/12/16 22:02 100 Venturi Mask 6.00 35 11/12/16 22:00 75 11/12/16 20:00 75 11/12/16 20:00 98.2 75 22 90/62 99 11/12/16 19:00 97 Venturi Mask 50 11/12/16 18:00 72 11/12/16 16:00 71 22 100/77 100 11/12/16 16:00 71 11/12/16 15:44 75 25 127/83 98 11/12/16 15:01 76 21 100/77 95 11/12/16 14:31 71 20 93/50 100 11/12/16 14:00 83 11/12/16 14:00 83 19 108/67 100 11/12/16 13:00 63 17 90/55 99 11/12/16 12:07 62 16 97/54 98 11/12/16 12:00 63 11/12/16 11:00 61 16 97/57 99 11/12/16 10:00 80 11/12/16 10:00 62 32 85/55 100 11/12/16 09:28 98 Venturi Mask 6.00 50 I/O 11/12/16 11/12/16 11/12/16 11/13/16 11/13/16 11/13/16 07:00 15:00 23:00 07:00 15:00 23:00 Intake Total 630 ml 979 ml 740 ml 600 ml Output Total 1000 ml 1150 ml 350 ml 450 ml Balance -370 ml -171 ml 390 ml 150 ml Intake Oral 0 ml 0 ml IV Total 630 ml 979 ml 740 ml 600 ml Output Urine Total 1000 ml 1150 ml 350 ml 450 ml # Bowel Movements 0 0 Physical Exam GENERAL: Agitated SKIN: Warm and dry. HEAD: Atraumatic. Normocephalic. EYES: Pupils equal and round. No scleral icterus. No injection or drainage. ENT: No nasal bleeding or discharge. Mucous membranes pink and moist. NECK: Trachea midline. No JVD. CARDIOVASCULAR: Regular rate and rhythm. RESPIRATORY: No accessory muscle use. Decreased breath sounds bilaterally GASTROINTESTINAL: Abdomen soft, non-tender, nondistended. Hepatic and splenic margins not palpable. MUSCULOSKELETAL: Extremities without clubbing, cyanosis, or edema. No obvious deformities. NEUROLOGICAL: Awake and alert. No obvious cranial nerve deficits. Motor grossly within normal limits. Five out of 5 muscle strength in the arms and legs. Normal speech. PSYCHIATRIC: Appropriate mood and affect; insight and judgment normal. Laboratory Laboratory Tests Test 11/10/16 11/10/16 11/11/16 11/12/16 15:51 20:23 02:45 05:25 White Blood Count 10.7 TH/MM3 12.3 TH/MM3 (4.0-11.0) (4.0-11.0) Red Blood Count 3.28 MIL/MM3 3.24 MIL/MM3 (4.50-5.90) (4.50-5.90) Hemoglobin 10.3 GM/DL 10.2 GM/DL (13.0-17.0) (13.0-17.0) Hematocrit 31.2 % 30.8 % (39.0-51.0) (39.0-51.0) Mean Corpuscular Volume 95.1 FL 95.2 FL (80.0-100.0) (80.0-100.0) Mean Corpuscular Hemoglobin 31.4 PG 31.5 PG (27.0-34.0) (27.0-34.0) Mean Corpuscular Hemoglobin 33.0 % 33.1 % Concent (32.0-36.0) (32.0-36.0) Red Cell Distribution Width 18.3 % 18.7 % (11.6-17.2) (11.6-17.2) Platelet Count 114 TH/MM3 126 TH/MM3 (150-450) (150-450) Mean Platelet Volume 8.6 FL 9.1 FL (7.0-11.0) (7.0-11.0) Prothrombin Time 13.4 SEC (9.8-11.6) Prothromb Time International 1.2 RATIO Ratio Activated Partial 31.5 SEC 50.1 SEC 58.0 SEC Thromboplast Time (24.3-30.1) (24.3-30.1) (24.3-30.1) Lactic Acid Level 1.2 mmol/L (0.4-2.0) Troponin I 1.02 NG/ML 0.97 NG/ML (0.02-0.05) (0.02-0.05) Magnesium Level 1.6 MG/DL 2.2 MG/DL (1.5-2.5) (1.5-2.5) Neutrophils (%) (Auto) 95.9 % (16.0-70.0) Lymphocytes (%) (Auto) 2.1 % (9.0-44.0) Monocytes (%) (Auto) 1.6 % (0.0-8.0) Eosinophils (%) (Auto) 0.0 % (0.0-4.0) Basophils (%) (Auto) 0.4 % (0.0-2.0) Neutrophils # (Auto) 11.8 TH/MM3 (1.8-7.7) Lymphocytes # (Auto) 0.3 TH/MM3 (1.0-4.8) Monocytes # (Auto) 0.2 TH/MM3 (0-0.9) Eosinophils # (Auto) 0.0 TH/MM3 (0-0.4) Basophils # (Auto) 0.1 TH/MM3 (0-0.2) CBC Comment DIFF FINAL Differential Comment Sodium Level 126 MEQ/L 132 MEQ/L (136-145) (136-145) Potassium Level 4.5 MEQ/L 4.5 MEQ/L (3.5-5.1) (3.5-5.1) Chloride Level 89 MEQ/L 95 MEQ/L (98-107) (98-107) Carbon Dioxide Level 28.2 MEQ/L 25.6 MEQ/L (21.0-32.0) (21.0-32.0) Anion Gap 9 MEQ/L (5-15) 11 MEQ/L (5-15) Blood Urea Nitrogen 21 MG/DL (7-18) 33 MG/DL (7-18) Creatinine 0.97 MG/DL 1.08 MG/DL (0.60-1.30) (0.60-1.30) Estimat Glomerular Filtration 78 ML/MIN (>89) 69 ML/MIN (>89) Rate Random Glucose 214 MG/DL 174 MG/DL (74-106) (74-106) Calcium Level 7.6 MG/DL 7.4 MG/DL (8.5-10.1) (8.5-10.1) Total Bilirubin 0.9 MG/DL 0.7 MG/DL (0.2-1.0) (0.2-1.0) Aspartate Amino Transf 56 U/L (15-37) 46 U/L (15-37) (AST/SGOT) Alanine Aminotransferase 52 U/L (12-78) 45 U/L (12-78) (ALT/SGPT) Alkaline Phosphatase 83 U/L (45-117) 72 U/L (45-117) Total Protein 7.2 GM/DL 6.7 GM/DL (6.4-8.2) (6.4-8.2) Albumin 2.9 GM/DL 2.8 GM/DL (3.4-5.0) (3.4-5.0) Protein Corrected Calcium 7.6 MG/DL (8.5-10.1) Test 11/12/16 11/12/16 05:59 08:50 White Blood Count 8.7 TH/MM3 (4.0-11.0) Red Blood Count 3.13 MIL/MM3 (4.50-5.90) Hemoglobin 9.7 GM/DL (13.0-17.0) Hematocrit 30.7 % (39.0-51.0) Mean Corpuscular Volume 98.2 FL (80.0-100.0) Mean Corpuscular Hemoglobin 31.0 PG (27.0-34.0) Mean Corpuscular Hemoglobin 31.5 % Concent (32.0-36.0) Red Cell Distribution Width 18.5 % (11.6-17.2) Platelet Count 115 TH/MM3 (150-450) Mean Platelet Volume 8.7 FL (7.0-11.0) Neutrophils (%) (Auto) 95.7 % (16.0-70.0) Lymphocytes (%) (Auto) 1.6 % (9.0-44.0) Monocytes (%) (Auto) 2.5 % (0.0-8.0) Eosinophils (%) (Auto) 0.0 % (0.0-4.0) Basophils (%) (Auto) 0.2 % (0.0-2.0) Neutrophils # (Auto) 8.3 TH/MM3 (1.8-7.7) Lymphocytes # (Auto) 0.1 TH/MM3 (1.0-4.8) Monocytes # (Auto) 0.2 TH/MM3 (0-0.9) Eosinophils # (Auto) 0.0 TH/MM3 (0-0.4) Basophils # (Auto) 0.0 TH/MM3 (0-0.2) CBC Comment DIFF FINAL Differential Comment Activated Partial 67.6 SEC Thromboplast Time (24.3-30.1) Blood Gas Puncture Site RT RADIAL Blood Gas Patient Temperature 98.6 Blood Gas HCO3 23 mmol/L (22-26) Blood Gas Base Excess -1.8 mmol/L (-2-2) Blood Gas Oxygen Saturation 96 % (90-100) Arterial Blood pH 7.34 (7.380-7.420) Arterial Blood Partial 44 mmHg (38-42) Pressure CO2 Arterial Blood Partial 117 mmHg Pressure O2 (61-120) Arterial Blood Oxygen Content 13.5 Vol % (12.0-20.0) Arterial Blood 1.8 % (0-4) Carboxyhemoglobin Arterial Blood Methemoglobin 0.7 % (0-2) Blood Gas Hemoglobin 9.8 G/DL (12.0-16.0) Oxygen Delivery Device VENTI Blood Gas Inspired Oxygen 50 % Assessment and Plan Problem List: (1) CAD (coronary artery disease) (2) Hx of CABG (3) Acute hyponatremia (4) COPD (chronic obstructive pulmonary disease) (5) Hyperlipidemia (6) HCAP (healthcare-associated pneumonia) (7) Systolic heart failure, chronic (8) EtOH dependence (9) COPD with exacerbation (10) History of CHF (congestive heart failure) (11) Ischemic cardiomyopathy (12) Diabetes mellitus, type 2 (13) Alcoholic cirrhosis (14) Hyponatremia (15) Non-sustained ventricular tachycardia Assessment and Plan 1) NSTEMI Will hold on cardiac catheterization due to agitation and lethargy, increased oxygen demand Overall concerned about the patient ability to lay still during and after the case Discussed with the patient's sister and Dr. Escobar, all in agreement Currently plan on Wednesday, will re-evaluate 2) Con't diuresis 3) No further wide complex tachycardia noted Previous appears to be atrial fibrillation 4) Con't ASA/Nitro/Heparin/Statin/Entresto Problem Qualifiers (1) CAD (coronary artery disease): (2) EtOH dependence: Qualified Code: F10.29 - Alcohol dependence with unspecified alcohol-induced disorder (3) Diabetes mellitus, type 2: Hieu Jackson DO Nov 13, 2016 09:15
[2016-11-13] MEDS: PANTOPRAZOLE SODIUM 40 MG VIAL IV SCH (10:05)
[2016-11-13] MEDS: AZITHROMYCIN INJ 500 MG in SODIUM CHLOR 0.9% 250 ML INJ 250 ML IV SCH (10:05)
[2016-11-13] MEDS: CHOLECALCIFEROL (VIT D3) 1000 UNIT TAB PO SCH (10:06)
[2016-11-13] MEDS: ISOSORBIDE MONONITRATE 30 MG TAB PO SCH (10:06)
[2016-11-13] MEDS: THIAMINE HCL 100 MG TAB PO SCH (10:06)
[2016-11-13] MEDS: SACUBITRIL/VALSARTAN 24 MG-26 MG TAB PO SCH ×2 (10:06→21:00)
[2016-11-13] MEDS: ATORVASTATIN 40 MG TAB PO SCH (10:06)
[2016-11-13] MEDS: ASPIRIN 81 MG CHEW TAB CHEW SCH (10:06)
[2016-11-13] MEDS: SOTALOL HCL 80 MG TAB PO SCH ×2 (10:08→21:00)
[2016-11-13 11:33] LABS: AUTOMATED NEUTROPHIL # 7.8 TH/MM3 (1.8-7.7); BASOPHIL % 0.1 % (0.0-2.0); HEMATOCRIT 33.2 % (39.0-51.0); HEMO FLAGS DIFF FINAL; LYMPHOCYTE # 0.2 TH/MM3 (1.0-4.8); MEAN CORPUSCULAR HEMOGLOBIN 31.3 PG (27.0-34.0); MEAN CORPUSCULAR HGB CONC 31.9 % (32.0-36.0); MONO % 2.3 % (0.0-8.0); NEUT % 95.6 % (16.0-70.0); PLATELET COUNT 107 TH/MM3 (150-450); RED BLOOD COUNT 3.39 MIL/MM3 (4.50-5.90); RED CELL DISTRIBUTION WIDTH 18.5 % (11.6-17.2); WHITE BLOOD COUNT 8.2 TH/MM3 (4.0-11.0)
[2016-11-13 11:40] LABS: APTT (PATIENT) 70.6 SEC (24.3-30.1)
--- NOTE | 2016-11-13 11:40 | HHI.CCPN ---
Subjective Remarks/Hospital Course Patient is a 66-year-old male with past medical history significant for coronary artery disease, ischemic cardiomyopathy, ventricular tachycardia, status post AICD, liver cirrhosis, continued alcohol use, COPD who presented to the emergency department with one-day duration of chest pain and shortness of breath. He woke up with shortness of breath and chest pain, took one sublingual nitroglycerin and called ambulance services. He was given 2 additional sublingual nitroglycerin, aspirin and 162 mg by mouth by EMS. He had oxygen saturation 89%, he was placed on nonrebreather mask and transported to [facility] ED. He quit smoking about one year ago but continues to drink 2 beers daily. The patient was placed on BiPAP with some improvement in symptoms. Chest x-ray showed right lower lobe infiltrate concerning for healthcare associated pneumonia as he was recently admitted and discharged from hospital (10/20/16-10/23/16 for chest pain COPD and CHF). Patient received Rocephin and azithromycin in the ED. His lab work showed WBC 13.4 with left shift, sodium was 123 potassium 5.5, lactic acid was 4.9 and BNP was 1185. I evaluated the patient in the ICU. He is in moderate distress on BiPAP. Intermittent chest pain requiring nitroglycerin-we'll start on nitro drip. Initial troponin is negative. I have placed him on cefepime and Flagyl for healthcare associated pneumonia. Careful hydration with normal saline to correct hyponatremia. Patient will be continued on aspirin and sotalol, start IV heparin until ACS is ruled out. 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 Also patient developed possible nonsustained V. tach in the ICU SUBJ 11/11/16: Complaints of intermittent chest pain. Na 126. Troponin 0.9. Will dc nitro gtt. Tremulous. Drinks 4-6 beers daily. Start CIWA protocol 11/12: Patient developed more pronounced withdrawal symptoms overnight. Currently on Precedex and getting when necessary benzodiazepines. Patient is lethargic intermittently agitated. Oriented to person only 11/13: Patient remains heavily sedated due to alcohol withdrawal. Denies chest pain. Received multiple doses of Ativan. I would wean to DC Precedex. Cardiac catheterization now postponed till Wednesday due to alcohol withdrawal Objective Vital Signs Date Time Temp Pulse Resp B/P Pulse Ox O2 Delivery O2 Flow Rate FiO2 11/13/16 07:25 98 Venturi Mask 6.00 35 11/13/16 06:00 78 11/13/16 04:00 98.4 21 120/83 Intake and Output 11/12/16 11/12/16 11/13/16 08:00 16:00 00:00 Intake Total 630 ml 979 ml 740 ml Output Total 1000 ml 1150 ml 350 ml Balance -370 ml -171 ml 390 ml Result Diagram: 11/12/16 0559 11/12/16 0525 Imaging Right lower lung infiltrate Objective Remarks GENERAL: This is a well-nourished, well-developed patient, heavily sedated on Precedex SKIN: Warm and dry HEAD: Atraumatic. Normocephalic. EYES: Pupils equal round and reactive. ENT: Nose without bleeding NECK: Trachea midline. No JVD or lymphadenopathy. CARDIOVASCULAR: Tachycardic rate rate and rhythm without murmurs, gallops, or rubs. RESPIRATORY: Breath sounds equal bilaterally. Crackles at right base GASTROINTESTINAL: Abdomen soft, no tenderness. No organomegaly MUSCULOSKELETAL: Extremities without clubbing, cyanosis, or edema. NEUROLOGICAL: Lethargic but wakes up easily. Tremulous bilateral upper extremities. Oriented to person, moves all extremities nonfocal follows commands Urinary Catheter: Yes Assessment to: Continue A/P Assessment and Plan NEURO: Alcohol withdrawal syndrome Alcohol dependence - Wean to DC Precedex. Continue CIWA protocol also - Continue multivitamin thiamine folic acid RESP: Acute hypoxemic respiratory failure Right lower lobe pneumonia COPD exacerbation - BiPAP prn, now on VM - DuoNeb every 6 hours and when necessary - IV Solu-Medrol 60 mg every 12 (On prednisone at home)-reduce to 40 mg q12 - Broad-spectrum antibiotic with cefepime and Flagyl - Follow-up chest x-ray improving infiltrates CV: ACS/NSTEMI Probable CHF/elevated BNP Ischemic cardiomyopathy EF 25% Coronary artery disease Ventricular tachycardia status post AICD - Continue aspirin. Use prn s/l nitro - Continue IV heparin-change to sq ok with Dr. Jackson. Cardiology Dr. Jackson. Cath on Wednesday if withdrawal symptoms better controlled - Continue home meds including Entresto, sotalol, Lipitor, nitroglycerin, aspirin. Hold Imdur - Lasix on hold. NS at 50 ml per hour to correct hyponatremia GI: Liver cirrhosis - Nothing by mouth, IV Protonix. - Swallow eval today, diet per rec /Endo - Monitor renal function closely. Murray catheter. - Gentle hydration with normal saline IV fluid at 50 ml per hour ID: Severe sepsis-improving Lactic acidosis-resolved Right lower lobe pneumonia - Source of sepsis most likely right lower lobe pneumonia - Continue cefepime Flagyl, and 1 dose of vancomycin given HEME: - Monitor CBC, CMP, coags - IV Heparin-change to subcutaneous if okay with Dr. Jackson ENDO: Hyponatremia/hyperkalemia - On chronic steroids, reduce IV Solu-Medrol to 40 mg every 12 hours PROPH: - Bilateral lower extremity SCDs. IV Heparin, IV Protonix LINES: - Utilize peripheral IVs, central line if needed CC time 35 min He remains critically ill now with alcohol withdrawal. With sepsis, respiratory failure and NSTEMI now complicated with alcohol withdrawal symptoms if not improving sufficiently, will need endotracheal intubation and stabilization Nikki Escobar MD Nov 13, 2016 11:39
[2016-11-13 11:50] LABS: ALT (GPT) 49 U/L (12-78); ANION GAP 11 MEQ/L (5-15); AST (GOT) 46 U/L (15-37); BICARBONATE 23.2 MEQ/L (21.0-32.0); BLOOD UREA NITROGEN 38 MG/DL (7-18); CHLORIDE 101 MEQ/L (98-107); GLOMERULAR FILTRATION RATE 71 ML/MIN (>89); MAGNESIUM 2.4 MG/DL (1.5-2.5); POTASSIUM 4.7 MEQ/L (3.5-5.1); SODIUM (NA) 135 MEQ/L (136-145)
[2016-11-13 11:52] LABS: ALKALINE PHOSPHATASE 68 U/L (45-117); TOTAL BILIRUBIN ADULT 0.7 MG/DL (0.2-1.0)
[2016-11-13] MEDS: HEPARIN-D5W 25,000 U/250 ML 250 ML IV SCH (15:41)
[2016-11-13] MEDS: MULTIVITAMIN INJ 10 ML, THIAMINE INJ 100 MG, FOLIC ACID INJ 1 MG in SODIUM CHLORID 0.9%... IV SCH (15:42)
[2016-11-13] MEDS: methylPREDNISolone SOD SUCC 40 MG/1 ML VIAL IV PUSH SCH (18:21)
[2016-11-14] VITALS (19 sets, daily range): BP systolic 106–139; BP diastolic 61–88; PULSE 79–98; RESP 0–25; TEMP 98–98.4; O2SAT 93–100
[2016-11-14] MEDS: INSULIN ASPART SUPPLEMENTAL SCALE SQ SCH ×6 (01:24→20:47)
[2016-11-14] MEDS: CEFEPIME INJ 2,000 MG in SODIUM CHLORIDE 0.9% INJ 100 ML IV SCH ×3 (01:29→18:04)
[2016-11-14] MEDS: CHLORHEXIDINE GLUCONATE 2 % 1 PACK (2 CLOTHS) TOP SCH (04:00)
[2016-11-14] MEDS: RESP: ALBUTEROL 2.5 MG/IPRATROPIUM 0.5 MG NEB (SCH) NEB ×4 (04:05→20:06)
[2016-11-14] MEDS: methylPREDNISolone SOD SUCC 40 MG/1 ML VIAL IV PUSH SCH (04:43)
[2016-11-14 06:10] LABS: ALT (GPT) 54 U/L (12-78); ANION GAP 8 MEQ/L (5-15); AST (GOT) 50 U/L (15-37); BLOOD UREA NITROGEN 37 MG/DL (7-18); CHLORIDE 103 MEQ/L (98-107); GLOMERULAR FILTRATION RATE 83 ML/MIN (>89); MAGNESIUM 2.5 MG/DL (1.5-2.5); POTASSIUM 4.5 MEQ/L (3.5-5.1); SODIUM (NA) 135 MEQ/L (136-145)
[2016-11-14 06:11] LABS: AUTOMATED NEUTROPHIL # 12.5 TH/MM3 (1.8-7.7); BASOPHIL % 0.1 % (0.0-2.0); HEMATOCRIT 33.5 % (39.0-51.0); HEMO FLAGS DIFF FINAL; LYMPHOCYTE # 0.3 TH/MM3 (1.0-4.8); MEAN CELL VOLUME 99.1 FL (80.0-100.0); MEAN CORPUSCULAR HEMOGLOBIN 30.3 PG (27.0-34.0); MEAN CORPUSCULAR HGB CONC 30.6 % (32.0-36.0); MONO % 4.8 % (0.0-8.0); NEUT % 93.1 % (16.0-70.0); PLATELET COUNT 173 TH/MM3 (150-450); RED BLOOD COUNT 3.38 MIL/MM3 (4.50-5.90); RED CELL DISTRIBUTION WIDTH 18.8 % (11.6-17.2); WHITE BLOOD COUNT 13.4 TH/MM3 (4.0-11.0)
[2016-11-14 06:12] LABS: ALKALINE PHOSPHATASE 74 U/L (45-117)
[2016-11-14] MEDS: CHLORHEXIDINE 0.12% (ORAL KIT) 15 ML CUP MT SCH ×2 (08:00→20:00)
[2016-11-14] MEDS: AZITHROMYCIN INJ 500 MG in SODIUM CHLOR 0.9% 250 ML INJ 250 ML IV SCH (08:33)
[2016-11-14] MEDS: ASPIRIN 81 MG CHEW TAB CHEW SCH (08:33)
[2016-11-14] MEDS: PANTOPRAZOLE SODIUM 40 MG VIAL IV SCH (08:33)
[2016-11-14] MEDS: THIAMINE HCL 100 MG TAB PO SCH (08:34)
[2016-11-14] MEDS: SACUBITRIL/VALSARTAN 24 MG-26 MG TAB PO SCH ×2 (08:34→20:46)
[2016-11-14] MEDS: ISOSORBIDE MONONITRATE 30 MG TAB PO SCH (08:34)
[2016-11-14] MEDS: SOTALOL HCL 80 MG TAB PO SCH ×2 (08:34→20:46)
[2016-11-14] MEDS: CHOLECALCIFEROL (VIT D3) 1000 UNIT TAB PO SCH (08:34)
[2016-11-14] MEDS: ATORVASTATIN 40 MG TAB PO SCH (08:34)
--- NOTE | 2016-11-14 09:32 | HHI.CCPN ---
Subjective Remarks/Hospital Course Patient is a 66-year-old male with past medical history significant for coronary artery disease, ischemic cardiomyopathy, ventricular tachycardia, status post AICD, liver cirrhosis, continued alcohol use, COPD who presented to the emergency department with one-day duration of chest pain and shortness of breath. He woke up with shortness of breath and chest pain, took one sublingual nitroglycerin and called ambulance services. He was given 2 additional sublingual nitroglycerin, aspirin and 162 mg by mouth by EMS. He had oxygen saturation 89%, he was placed on nonrebreather mask and transported to [place] ED. He quit smoking about one year ago but continues to drink 2 beers daily. The patient was placed on BiPAP with some improvement in symptoms. Chest x-ray showed right lower lobe infiltrate concerning for healthcare associated pneumonia as he was recently admitted and discharged from hospital (10/20/16-10/23/16 for chest pain COPD and CHF). Patient received Rocephin and azithromycin in the ED. His lab work showed WBC 13.4 with left shift, sodium was 123 potassium 5.5, lactic acid was 4.9 and BNP was 1185. I evaluated the patient in the ICU. He is in moderate distress on BiPAP. Intermittent chest pain requiring nitroglycerin-we'll start on nitro drip. Initial troponin is negative. I have placed him on cefepime and Flagyl for healthcare associated pneumonia. Careful hydration with normal saline to correct hyponatremia. Patient will be continued on aspirin and sotalol, start IV heparin until ACS is ruled out. Consult cardiology Dr. Davenoprt his primary senior network architect. Also patient developed possible nonsustained V. tach in the ICU 11/11/16: Complaints of intermittent chest pain. Na 126. Troponin 0.9. Will dc nitro gtt. Tremulous. Drinks 4-6 beers daily. Start CIWA protocol 11/12: Patient developed more pronounced withdrawal symptoms overnight. Currently on Precedex and getting when necessary benzodiazepines. Patient is lethargic intermittently agitated. Oriented to person only 11/13: Patient remains heavily sedated due to alcohol withdrawal. Denies chest pain. Received multiple doses of Ativan. I would wean to DC Precedex. Cardiac catheterization now postponed till Wednesday due to alcohol withdrawal Subjective: 11/14 Off Precedex. Reportedly tugged on his Murray and now has some hematuria. Murray appears patent. Hemoglobin stable at 10.2. Platelets are normal at 173. On heparin drip. Cardiac catheterization tentatively Wednesday. Afebrile,. Hasn 't been out of bed. Objective Vital Signs Date Time Temp Pulse Resp B/P Pulse Ox O2 Delivery O2 Flow Rate FiO2 11/14/16 08:23 95 Nasal Cannula 2.00 11/14/16 06:00 81 11/14/16 04:00 98.4 17 129/75 11/13/16 07:25 35 Intake and Output 11/13/16 11/13/16 11/14/16 08:00 16:00 00:00 Intake Total 600 ml 1102 ml 630 ml Output Total 450 ml 700 ml 650 ml Balance 150 ml 402 ml -20 ml Result Diagram: 11/14/1651311/14/16513 Imaging Right lower lung infiltrate Objective Remarks Drips: Heparin GENERAL: This is a well-nourished, well-developed patient who is alert, sitting up in [facility] bed conversant with his sister. SKIN: Warm and dry HEAD: Atraumatic. Normocephalic. EYES: Pupils equal round and reactive. ENT: Nose without bleeding NECK: Trachea midline. No JVD or lymphadenopathy. CARDIOVASCULAR: Regular rate and rhythm with no murmurs rubs or gallops. RESPIRATORY: Breath sounds equal bilaterally. Crackles at right base with some rhonchi. On 2 L nasal cannula. GASTROINTESTINAL: Abdomen soft, no tenderness. No organomegaly : Murray catheter in place with bloody urine MUSCULOSKELETAL: Extremities without clubbing, cyanosis. Edema is present bilateral upper extremities about 1+. Lower extremities have no edema. NEUROLOGICAL: Awake. Oriented to person, hospital and year.. No tremor. Follows commands and moves all extremities A/P Assessment and Plan NEURO: Alcohol withdrawal syndrome Alcohol dependence -Off Precedex.. Continue CIWA protocol. - Continue thiamine folic acid. D/c IV vitamins and change to po. RESP: Acute hypoxemic respiratory failure Right lower lobe pneumonia COPD exacerbation -On nasal cannula, continue to wean as tolerated. Now the patient is cooperative order IS q1hr - DuoNeb every 6 hours and when necessary - IV Solu-Medrol 40 mg every 12, was weaned yesterday. Will wean prednisone to 10 mg daily. Patient had completed a prednisone taper pack about 2 weeks prior to admission. - Abx as per below. - Follow-up chest x-ray improving infiltrates CV: ACS/NSTEMI Probable CHF/elevated BNP Ischemic cardiomyopathy EF 25% Coronary artery disease Ventricular tachycardia status post AICD Biventricular pacer - Continue aspirin. Use prn s/l nitro - Continue IV heparin per Dr. Jackson. Cath on Wednesday if withdrawal symptoms better controlled - Continue home meds including Entresto, sotalol, Lipitor, imdur -Off IVF GI: Liver cirrhosis -Swallow eval today and advanced heart healthy diet if appropriate. Change Protonix by mouth. /Endo Hematuria - Murray is patent. Hematuria after Murray trauma on 11/13, will maintain Murray to avoid urinary obstruction and allow for healing. ID: Severe sepsis-improving Lactic acidosis-resolved Right lower lobe pneumonia - Source of sepsis most likely right lower lobe pneumonia, improving. - Continue cefepime 11/10 #5, d/c Azithromycin 11/10 #5. Flagyl, and 1 dose of vancomycin previously given HEME: - Monitor CBC, CMP, coags - IV Heparin- per Dr. Jackson ENDO: Hyponatremia/hyperkalemia - Patient states he is not on chronic steroids. Changed to prednisone 10 mg daily. PROPH: - Bilateral lower extremity SCDs. IV Heparin, Protonix changed to po. LINES: - Utilize peripheral IVs, Out of bed today. PT. Patient and his sister updated at bedside. Discussed with Dr. Jackson. Level 2 Fadia Medrano MD Nov 14, 2016 09:32
--- NOTE | 2016-11-14 12:49 | PD.CARD.PN ---
Subjective Subjective Remarks No events overnight Looks better, less ETOH withdrawal/agitation Hematuria from pulling on Murray the other day, mildly cleared up Objective Medications Current Medications Medications (Trade) Dose Ordered Sig/Yakelin Route Start Time Stop Time Status Last Admin Sodium Chloride 2 ml 2 ml UNSCH PRN IVF 11/10/16 06:30 11/11/16 20:15 (Maxipime Inj/NS Inj) 100 ml @ 200 mls/hr Q8H IV 11/10/16 10:00 11/14/16 10:49 (Morphine Inj) 2 mg Q2H PRN IV 11/10/16 09:00 11/11/16 09:13 (Peridex 0.12% Liq) 15 ml BID@08,20 MT 11/10/16 20:00 11/12/16 20:00 Miscellaneous Information 1 Q361D XX 11/10/16 09:00 11/10/16 09:00 (Chlorhexidine 2% Cloth) 3 pack Taper DAILY@04 TOP 11/11/16 04:00 11/07/17 03:59 11/14/16 04:00 (Chlorhexidine 2% Cloth) 3 pack UNSCH PRN TOP 11/10/16 09:00 (Aspirin Chew) 81 mg DAILY CHEW 11/10/16 09:00 11/14/16 08:33 (Lipitor) 40 mg DAILY PO 11/10/16 09:00 11/14/16 08:34 (Vitamin D3) 1,000 units DAILY PO 11/10/16 09:00 11/14/16 08:34 (Lasix) 20 mg DAILY PO 11/11/16 09:00 Hold 11/11/16 08:55 (Imdur) 30 mg DAILY PO 11/10/16 09:30 11/14/16 08:34 (Nitrostat Sl) 0.4 mg Q3H PRN SL 11/10/16 09:00 11/10/16 09:54 (Entresto 24-26 Mg) 1 tab BID PO 11/10/16 09:00 11/14/16 08:34 (Betapace) 80 mg BID PO 11/10/16 09:00 11/14/16 08:34 (Vitamin B1) 250 mg DAILY PO 11/10/16 09:30 11/14/16 08:34 (NovoLOG SUPPLEMENTAL SCALE) 1 Q4HR SQ 11/10/16 12:00 11/14/16 12:00 (D50w (Vial) Inj) 50 ml UNSCH PRN IV PUSH 11/10/16 09:45 Glucagon 1 mg 1 mg UNSCH PRN OTHER 11/10/16 09:45 (Heparin-D5W Inj) 250 ml @ 0 mls/hr TITRATE IV 11/10/16 13:30 11/13/16 15:41 (Romazicon Inj) 0.2 mg Q1M PRN IV PUSH 11/11/16 16:15 (Ativan) 1 mg Q4H PRN PO 11/11/16 16:15 11/11/16 17:45 (Ativan Inj) 1 mg Q4H PRN IV PUSH 11/11/16 16:15 11/11/16 21:04 (Ativan) 2 mg Q2H PRN PO 11/11/16 16:15 (Ativan Inj) 2 mg Q2H PRN IV PUSH 11/11/16 16:15 11/13/16 05:16 (Ativan Inj) 2 mg Q1H PRN IV PUSH 11/11/16 16:15 11/13/16 02:14 (Ativan Inj) 2 mg Q15M PRN IV PUSH 11/11/16 16:15 11/12/16 21:15 (Protonix) 40 mg DAILY PO 11/15/16 09:00 (Deltasone) 10 mg DAILY PO 11/15/16 09:00 (Theragran) 1 tab DAILY PO 11/15/16 09:00 (Folate) 1 mg DAILY PO 11/15/16 09:00 Vital Signs / I&O Vital Signs Date Time Temp Pulse Resp B/P Pulse Ox O2 Delivery O2 Flow Rate FiO2 11/14/16 12:00 84 11/14/16 10:00 84 11/14/16 10:00 84 16 124/71 94 11/14/16 09:00 91 24 131/81 95 11/14/16 08:23 95 Nasal Cannula 2.00 11/14/16 08:00 87 11/14/16 08:00 98.3 87 22 133/78 94 11/14/16 07:00 92 22 139/82 98 11/14/16 07:00 94 Nasal Cannula 2.00 11/14/16 06:00 81 11/14/16 04:09 97 Nasal Cannula 2.00 11/14/16 04:00 80 11/14/16 04:00 98.4 80 17 129/75 100 11/14/16 02:00 79 11/14/16 00:00 79 11/14/16 00:00 98.0 79 19 120/80 95 11/13/16 22:00 74 11/13/16 20:08 97 Nasal Cannula 3.50 11/13/16 20:00 97.7 67 15 105/57 98 11/13/16 20:00 67 11/13/16 19:00 96 Nasal Cannula 4.00 11/13/16 18:00 66 30 99/62 96 11/13/16 18:00 66 11/13/16 17:00 66 19 100/57 98 11/13/16 16:00 91 11/13/16 16:00 98.6 91 29 80/52 97 11/13/16 15:01 69 20 89/71 98 11/13/16 14:00 66 11/13/16 14:00 66 39 95/66 98 11/13/16 13:02 67 34 101/64 99 I/O 11/13/16 11/13/16 11/13/16 11/14/16 11/14/16 11/14/16 07:00 15:00 23:00 07:00 15:00 23:00 Intake Total 600 ml 1102 ml 630 ml 300 ml Output Total 450 ml 700 ml 650 ml 550 ml Balance 150 ml 402 ml -20 ml -250 ml Intake Oral 350 ml 100 ml IV Total 600 ml 752 ml 630 ml 200 ml Output Urine Total 450 ml 700 ml 650 ml 550 ml # Bowel Movements 0 Physical Exam GENERAL: Agitated SKIN: Warm and dry. HEAD: Atraumatic. Normocephalic. EYES: Pupils equal and round. No scleral icterus. No injection or drainage. ENT: No nasal bleeding or discharge. Mucous membranes pink and moist. NECK: Trachea midline. No JVD. CARDIOVASCULAR: Regular rate and rhythm. RESPIRATORY: No accessory muscle use. Decreased breath sounds bilaterally GASTROINTESTINAL: Abdomen soft, non-tender, nondistended. Hepatic and splenic margins not palpable. MUSCULOSKELETAL: Extremities without clubbing, cyanosis, or edema. No obvious deformities. NEUROLOGICAL: Awake and alert. No obvious cranial nerve deficits. Motor grossly within normal limits. Five out of 5 muscle strength in the arms and legs. Normal speech. PSYCHIATRIC: Appropriate mood and affect; insight and judgment normal. Laboratory Laboratory Tests Test 11/14/16 05:14 White Blood Count 13.4 TH/MM3 Red Blood Count 3.38 MIL/MM3 Hemoglobin 10.2 GM/DL Hematocrit 33.5 % Mean Corpuscular Volume 99.1 FL Mean Corpuscular Hemoglobin 30.3 PG Mean Corpuscular Hemoglobin 30.6 % Concent Red Cell Distribution Width 18.8 % Platelet Count 173 TH/MM3 Mean Platelet Volume 8.6 FL Neutrophils (%) (Auto) 93.1 % Lymphocytes (%) (Auto) 2.0 % Monocytes (%) (Auto) 4.8 % Eosinophils (%) (Auto) 0.0 % Basophils (%) (Auto) 0.1 % Neutrophils # (Auto) 12.5 TH/MM3 Lymphocytes # (Auto) 0.3 TH/MM3 Monocytes # (Auto) 0.6 TH/MM3 Eosinophils # (Auto) 0.0 TH/MM3 Basophils # (Auto) 0.0 TH/MM3 CBC Comment DIFF FINAL Differential Comment Activated Partial 80.0 SEC Thromboplast Time Sodium Level 135 MEQ/L Potassium Level 4.5 MEQ/L Chloride Level 103 MEQ/L Carbon Dioxide Level 24.0 MEQ/L Anion Gap 8 MEQ/L Blood Urea Nitrogen 37 MG/DL Creatinine 0.92 MG/DL Estimat Glomerular Filtration 83 ML/MIN Rate Random Glucose 158 MG/DL Calcium Level 7.7 MG/DL Magnesium Level 2.5 MG/DL Total Bilirubin 1.0 MG/DL Aspartate Amino Transf 50 U/L (AST/SGOT) Alanine Aminotransferase 54 U/L (ALT/SGPT) Alkaline Phosphatase 74 U/L Total Protein 6.9 GM/DL Albumin 3.1 GM/DL Assessment and Plan Problem List: (1) CAD (coronary artery disease) (2) Hx of CABG (3) Acute hyponatremia (4) COPD (chronic obstructive pulmonary disease) (5) Hyperlipidemia (6) HCAP (healthcare-associated pneumonia) (7) Systolic heart failure, chronic (8) EtOH dependence (9) COPD with exacerbation (10) History of CHF (congestive heart failure) (11) Ischemic cardiomyopathy (12) Diabetes mellitus, type 2 (13) Alcoholic cirrhosis (14) Hyponatremia (15) Non-sustained ventricular tachycardia Assessment and Plan 1) NSTEMI Will hold on cardiac catheterization due to agitation and lethargy, increased oxygen demand Overall concerned about the patient ability to lay still during and after the case Discussed with the patient's sister and Dr. Escobar, all in agreement Currently plan on Wednesday, will re-evaluate Sister concerned as difficulty previously with getting up the Aorta 2) Con't diuresis 3) No further wide complex tachycardia noted Previous appears to be atrial fibrillation 4) Con't ASA/Nitro/Heparin/Statin/Entresto Problem Qualifiers (1) CAD (coronary artery disease): (2) EtOH dependence: Qualified Code: F10.29 - Alcohol dependence with unspecified alcohol-induced disorder (3) Diabetes mellitus, type 2: Hieu Jackson DO Nov 14, 2016 12:49
[2016-11-14] MEDS: HEPARIN-D5W 25,000 U/250 ML 250 ML IV SCH (14:27)
[2016-11-14] MEDS ORDERED: traMADol HCL 50 MG TAB PO PRN (14:30)
[2016-11-14 15:16] LABS: APTT (PATIENT) 55.1 SEC (24.3-30.1)
[2016-11-14] MEDS: LORazepam 2 MG/ML VIAL IV PUSH PRN (17:08)
[2016-11-15] VITALS (23 sets, daily range): BP systolic 95–124; BP diastolic 59–76; PULSE 76–88; RESP 18–28; TEMP 97.9–98.5; O2SAT 91–100
[2016-11-15] MEDS: INSULIN ASPART SUPPLEMENTAL SCALE SQ SCH ×6 (00:04→21:00)
[2016-11-15 00:36] LABS: APTT (PATIENT) 49.9 SEC (24.3-30.1)
[2016-11-15] MEDS: CEFEPIME INJ 2,000 MG in SODIUM CHLORIDE 0.9% INJ 100 ML IV SCH ×3 (02:12→18:17)
[2016-11-15] MEDS: LORazepam 2 MG/ML VIAL IV PUSH PRN (02:13)
[2016-11-15] MEDS: CHLORHEXIDINE GLUCONATE 2 % 1 PACK (2 CLOTHS) TOP SCH (04:00)
[2016-11-15] MEDS: RESP: ALBUTEROL 2.5 MG/IPRATROPIUM 0.5 MG NEB (SCH) NEB ×4 (04:34→20:32)
[2016-11-15 05:27] LABS: AUTOMATED NEUTROPHIL # 8.5 TH/MM3 (1.8-7.7); BASOPHIL % 0.3 % (0.0-2.0); EOSINOPHIL # 0.1 TH/MM3 (0-0.4); HEMATOCRIT 31.4 % (39.0-51.0); HEMO FLAGS DIFF FINAL; LYMPH % 6.1 % (9.0-44.0); LYMPHOCYTE # 0.6 TH/MM3 (1.0-4.8); MEAN CORPUSCULAR HEMOGLOBIN 31.5 PG (27.0-34.0); MEAN CORPUSCULAR HGB CONC 32.5 % (32.0-36.0); MONO % 9.6 % (0.0-8.0); PLATELET COUNT 166 TH/MM3 (150-450); RED BLOOD COUNT 3.23 MIL/MM3 (4.50-5.90); RED CELL DISTRIBUTION WIDTH 18.5 % (11.6-17.2); WHITE BLOOD COUNT 10.2 TH/MM3 (4.0-11.0)
[2016-11-15 05:31] LABS: APTT (PATIENT) 41.9 SEC (24.3-30.1)
[2016-11-15 06:03] LABS: BICARBONATE 26.7 MEQ/L (21.0-32.0)
[2016-11-15 06:07] LABS: POTASSIUM 5.5 MEQ/L (3.5-5.1)
[2016-11-15] MEDS: CHLORHEXIDINE 0.12% (ORAL KIT) 15 ML CUP MT SCH ×2 (07:38→20:00)
[2016-11-15] MEDS: predniSONE 10 MG TAB PO SCH (07:40)
[2016-11-15] MEDS: ASPIRIN 81 MG CHEW TAB CHEW SCH (07:40)
[2016-11-15] MEDS: SOTALOL HCL 80 MG TAB PO SCH ×2 (07:40→21:07)
[2016-11-15] MEDS: FOLIC ACID 1 MG TAB PO SCH (07:41)
[2016-11-15] MEDS: ISOSORBIDE MONONITRATE 30 MG TAB PO SCH (07:41)
[2016-11-15] MEDS: SACUBITRIL/VALSARTAN 24 MG-26 MG TAB PO SCH (07:41)
[2016-11-15] MEDS: ATORVASTATIN 40 MG TAB PO SCH (07:41)
[2016-11-15] MEDS: PANTOPRAZOLE SOD 40 MG DELAYED RELEASE TAB PO SCH (07:41)
[2016-11-15] MEDS: MULTIVITAMIN TAB PO SCH (07:41)
[2016-11-15] MEDS: CHOLECALCIFEROL (VIT D3) 1000 UNIT TAB PO SCH (07:42)
[2016-11-15] MEDS: THIAMINE HCL 100 MG TAB PO SCH (07:42)
--- NOTE | 2016-11-15 14:44 | PD.CARD.PN ---
Subjective Subjective Remarks Patient seen this morning No events overnight Doing well, sitting up in a chair Hematuria decreased, more punch colored Objective Medications Current Medications Medications (Trade) Dose Ordered Sig/Yakelin Route Start Time Stop Time Status Last Admin (NS Flush) 2 ml UNSCH PRN IVF 11/10/16 06:30 11/11/16 20:15 Cefepime HCl 2000 mg/Sodium Chloride 100 ml @ 200 mls/hr Q8H IV 11/10/16 10:00 11/15/16 09:22 (Morphine Inj) 2 mg Q2H PRN IV 11/10/16 09:00 11/11/16 09:13 (Duoneb Neb) 1 ampule Q6HR NEB NEB 11/10/16 10:00 11/15/16 07:22 (Duoneb Neb) 1 ampule Q4HR NEB PRN INH 11/10/16 09:00 (Peridex 0.12% Liq) 15 ml BID@08,20 MT 11/10/16 20:00 11/12/16 20:00 Miscellaneous Information 1 Q361D XX 11/10/16 09:00 11/10/16 09:00 (Chlorhexidine 2% Cloth) 3 pack Taper DAILY@04 TOP 11/11/16 04:00 11/07/17 03:59 11/15/16 04:00 (Chlorhexidine 2% Cloth) 3 pack UNSCH PRN TOP 11/10/16 09:00 (Aspirin Chew) 81 mg DAILY CHEW 11/10/16 09:00 11/15/16 07:40 (Lipitor) 40 mg DAILY PO 11/10/16 09:00 11/15/16 07:41 (Vitamin D3) 1,000 units DAILY PO 11/10/16 09:00 11/15/16 07:42 (Lasix) 20 mg DAILY PO 11/11/16 09:00 Future Hold 11/11/16 08:55 (Imdur) 30 mg DAILY PO 11/10/16 09:30 11/15/16 07:41 (Nitrostat Sl) 0.4 mg Q3H PRN SL 11/10/16 09:00 11/10/16 09:54 (Entresto 24-26 Mg) 1 tab BID PO 11/10/16 09:00 11/15/16 07:41 (Betapace) 80 mg BID PO 11/10/16 09:00 11/15/16 07:40 (Vitamin B1) 250 mg DAILY PO 11/10/16 09:30 11/15/16 07:42 (NovoLOG SUPPLEMENTAL SCALE) 1 Q4HR SQ 11/10/16 12:00 11/15/16 11:42 (D50w (Vial) Inj) 50 ml UNSCH PRN IV PUSH 11/10/16 09:45 (Glucagon Inj) 1 mg UNSCH PRN OTHER 11/10/16 09:45 Heparin Sodium/ Dextrose 250 ml @ 0 mls/hr TITRATE IV 11/10/16 13:30 11/14/16 14:27 (Romazicon Inj) 0.2 mg Q1M PRN IV PUSH 11/11/16 16:15 (Ativan) 1 mg Q4H PRN PO 11/11/16 16:15 11/11/16 17:45 (Ativan Inj) 1 mg Q4H PRN IV PUSH 11/11/16 16:15 11/15/16 02:13 (Ativan) 2 mg Q2H PRN PO 11/11/16 16:15 (Ativan Inj) 2 mg Q2H PRN IV PUSH 11/11/16 16:15 11/14/16 17:08 (Ativan Inj) 2 mg Q1H PRN IV PUSH 11/11/16 16:15 11/13/16 02:14 (Ativan Inj) 2 mg Q15M PRN IV PUSH 11/11/16 16:15 11/12/16 21:15 (Protonix) 40 mg DAILY PO 11/15/16 09:00 11/15/16 07:41 (Deltasone) 10 mg DAILY PO 11/15/16 09:00 11/15/16 07:40 (Theragran) 1 tab DAILY PO 11/15/16 09:00 11/15/16 07:41 (Folate) 1 mg DAILY PO 11/15/16 09:00 11/15/16 07:41 (Ultram) 50 mg Q6H PRN PO 11/14/16 14:30 11/15/16 14:35 Vital Signs / I&O Vital Signs Date Time Temp Pulse Resp B/P (MAP) Pulse Ox O2 Delivery O2 Flow Rate FiO2 11/15/16 13:00 80 97/62 (74) 96 11/15/16 12:00 86 11/15/16 12:00 98.4 86 27 107/63 (78) 96 11/15/16 11:00 79 20 97/60 (72) 98 11/15/16 10:00 76 11/15/16 10:00 76 18 108/59 (75) 99 11/15/16 09:00 87 27 95/73 (80) 91 11/15/16 08:00 83 11/15/16 08:00 97.9 83 21 120/70 (87) 91 11/15/16 07:22 95 Nasal Cannula 1.00 11/15/16 07:00 95 Nasal Cannula 2.00 11/15/16 07:00 82 23 109/71 (84) 95 11/15/16 06:00 88 11/15/16 04:36 97 11/15/16 04:00 98.5 80 19 114/71 (85) 100 11/15/16 04:00 80 11/15/16 02:00 81 11/15/16 00:00 98.4 82 28 123/73 (90) 99 11/15/16 00:00 82 11/14/16 22:00 86 11/14/16 20:12 99 Nasal Cannula 2.00 11/14/16 20:00 98.3 93 25 106/79 (88) 96 11/14/16 20:00 93 11/14/16 19:00 96 Nasal Cannula 2.00 11/14/16 18:00 98.3 90 19 126/64 (84) 96 11/14/16 18:00 90 11/14/16 17:00 98 20 131/88 (102) 94 11/14/16 16:00 86 11/14/16 16:00 86 0 116/70 (85) 93 I/O 11/14/16 11/14/16 11/14/16 11/15/16 11/15/16 11/15/16 07:00 15:00 23:00 07:00 15:00 23:00 Intake Total 300 ml 1086 ml 301 ml 314 ml Output Total 550 ml 800 ml 775 ml 625 ml Balance -250 ml 286 ml -474 ml -311 ml Intake Oral 100 ml 666 ml 140 ml 140 ml IV Total 200 ml 420 ml 161 ml 174 ml Output Urine Total 550 ml 800 ml 775 ml 625 ml # Bowel Movements 2 1 1 Physical Exam GENERAL: Agitated SKIN: Warm and dry. HEAD: Atraumatic. Normocephalic. EYES: Pupils equal and round. No scleral icterus. No injection or drainage. ENT: No nasal bleeding or discharge. Mucous membranes pink and moist. NECK: Trachea midline. No JVD. CARDIOVASCULAR: Regular rate and rhythm. RESPIRATORY: No accessory muscle use. Decreased breath sounds bilaterally GASTROINTESTINAL: Abdomen soft, non-tender, nondistended. Hepatic and splenic margins not palpable. MUSCULOSKELETAL: Extremities without clubbing, cyanosis, or edema. No obvious deformities. NEUROLOGICAL: Awake and alert. No obvious cranial nerve deficits. Motor grossly within normal limits. Five out of 5 muscle strength in the arms and legs. Normal speech. PSYCHIATRIC: Appropriate mood and affect; insight and judgment normal. Laboratory Laboratory Tests Test 11/14/16 23:16 11/15/16 03:49 11/15/16 09:08 Activated Partial Thromboplast Time 49.9 SEC 41.9 SEC White Blood Count 10.2 TH/MM3 Red Blood Count 3.23 MIL/MM3 Hemoglobin 10.2 GM/DL Hematocrit 31.4 % Mean Corpuscular Volume 97.0 FL Mean Corpuscular Hemoglobin 31.5 PG Mean Corpuscular Hemoglobin Concent 32.5 % Red Cell Distribution Width 18.5 % Platelet Count 166 TH/MM3 Mean Platelet Volume 10.2 FL Neutrophils (%) (Auto) 83.0 % Lymphocytes (%) (Auto) 6.1 % Monocytes (%) (Auto) 9.6 % Eosinophils (%) (Auto) 1.0 % Basophils (%) (Auto) 0.3 % Neutrophils # (Auto) 8.5 TH/MM3 Lymphocytes # (Auto) 0.6 TH/MM3 Monocytes # (Auto) 1.0 TH/MM3 Eosinophils # (Auto) 0.1 TH/MM3 Basophils # (Auto) 0.0 TH/MM3 CBC Comment DIFF FINAL Differential Comment Blood Urea Nitrogen 30 MG/DL Creatinine 0.98 MG/DL Random Glucose 125 MG/DL Calcium Level 8.2 MG/DL Sodium Level 137 MEQ/L Potassium Level 5.5 MEQ/L 4.1 MEQ/L Chloride Level 105 MEQ/L Carbon Dioxide Level 26.7 MEQ/L Anion Gap 5 MEQ/L Estimat Glomerular Filtration Rate 77 ML/MIN Assessment and Plan Problem List: (1) CAD (coronary artery disease) ICD Codes: I25.10 - Atherosclerotic heart disease of [place] coronary artery without angina pectoris Status: Chronic (2) Hx of CABG ICD Codes: Z95.1 - Presence of aortocoronary bypass graft Status: Chronic (3) Acute hyponatremia ICD Codes: E87.1 - Hypo-osmolality and hyponatremia Status: Acute (4) COPD (chronic obstructive pulmonary disease) ICD Codes: J44.9 - Chronic obstructive pulmonary disease, unspecified Status: Chronic (5) Hyperlipidemia ICD Codes: E78.5 - Hyperlipidemia Status: Chronic (6) HCAP (healthcare-associated pneumonia) ICD Codes: J18.9 - Pneumonia, unspecified organism Status: Acute (7) Systolic heart failure, chronic ICD Codes: I50.22 - Chronic systolic (congestive) heart failure Status: Chronic (8) EtOH dependence ICD Codes: F10.20 - Alcohol dependence, uncomplicated Status: Acute (9) COPD with exacerbation ICD Codes: J44.1 - Chronic obstructive pulmonary disease with (acute) exacerbation Status: Acute (10) History of CHF (congestive heart failure) ICD Codes: Z86.79 - History of congestive heart failure Status: Chronic (11) Ischemic cardiomyopathy ICD Codes: I25.5 - Ischemic cardiomyopathy Status: Chronic (12) Diabetes mellitus, type 2 ICD Codes: E11.9 - Type 2 diabetes mellitus without complications Status: Acute (13) Alcoholic cirrhosis ICD Codes: K70.30 - Alcoholic cirrhosis of liver without ascites Status: Chronic (14) Hyponatremia ICD Codes: E87.1 - Hyponatremia Status: Acute (15) Non-sustained ventricular tachycardia ICD Codes: I47.2 - Ventricular tachycardia Status: Acute Assessment and Plan 1) NSTEMI Currently plan catheterization tomorrow Sister concerned as difficulty previously with getting up the Aorta Discussed with her, if concern during the case, will stop and continue medical management No left radial access as patient has minimal pulse at best 2) Con't diuresis 3) No further wide complex tachycardia noted Previous appears to be atrial fibrillation 4) Con't ASA/Nitro/Heparin/Statin/Entresto 5) Hematuria on heparin Trauma from pulling on Murray while going through ETOH withdrawal Will continue to follow, appears to be clearing while on heparin drip Problem Qualifiers (1) CAD (coronary artery disease): (2) EtOH dependence: (3) Diabetes mellitus, type 2: Hieu Jackson DO Nov 15, 2016 14:44
--- NOTE | 2016-11-15 16:48 | HHI.CCPN ---
Subjective Remarks/Hospital Course Patient is a 66-year-old male with past medical history significant for coronary artery disease, ischemic cardiomyopathy, ventricular tachycardia, status post AICD, liver cirrhosis, continued alcohol use, COPD who presented to the emergency department with one-day duration of chest pain and shortness of breath. He woke up with shortness of breath and chest pain, took one sublingual nitroglycerin and called ambulance services. He was given 2 additional sublingual nitroglycerin, aspirin and 162 mg by mouth by EMS. He had oxygen saturation 89%, he was placed on nonrebreather mask and transported to [place] ED. He quit smoking about one year ago but continues to drink 2 beers daily. The patient was placed on BiPAP with some improvement in symptoms. Chest x-ray showed right lower lobe infiltrate concerning for healthcare associated pneumonia as he was recently admitted and discharged from hospital (10/20/16-10/23/16 for chest pain COPD and CHF). Patient received Rocephin and azithromycin in the ED. His lab work showed WBC 13.4 with left shift, sodium was 123 potassium 5.5, lactic acid was 4.9 and BNP was 1185. I evaluated the patient in the ICU. He is in moderate distress on BiPAP. Intermittent chest pain requiring nitroglycerin-we'll start on nitro drip. Initial troponin is negative. I have placed him on cefepime and Flagyl for healthcare associated pneumonia. Careful hydration with normal saline to correct hyponatremia. Patient will be continued on aspirin and sotalol, start IV heparin until ACS is ruled out. Consult cardiology Dr. Davenport his primary private inquiry agent. Also patient developed possible nonsustained V. tach in the ICU 11/11/16: Complaints of intermittent chest pain. Na 126. Troponin 0.9. Will dc nitro gtt. Tremulous. Drinks 4-6 beers daily. Start CIWA protocol 11/12: Patient developed more pronounced withdrawal symptoms overnight. Currently on Precedex and getting when necessary benzodiazepines. Patient is lethargic intermittently agitated. Oriented to person only 11/13: Patient remains heavily sedated due to alcohol withdrawal. Denies chest pain. Received multiple doses of Ativan. I would wean to DC Precedex. Cardiac catheterization now postponed till Wednesday due to alcohol withdrawal 11/14 Off Precedex. Reportedly tugged on his Murray and now has some hematuria. Murray appears patent. Hemoglobin stable at 10.2. Platelets are normal at 173. On heparin drip. Cardiac catheterization tentatively Wednesday. Afebrile,. Hasn 't been out of bed. Subjective: 11/15 [facility] downtime this morning. Patient seen earlier. Still with some hematuria but slightly improved. Hemoglobin stable. Objective Vital Signs Date Time Temp Pulse Resp B/P (MAP) Pulse Ox O2 Delivery O2 Flow Rate FiO2 11/15/16 14:00 80 11/15/16 13:00 97/62 (74) 96 11/15/16 12:00 98.4 27 11/15/16 07:22 Nasal Cannula 1.00 11/13/16 07:25 35 Intake and Output 11/15/16 11/15/16 11/16/16 08:00 16:00 00:00 Intake Total 314 ml 616 ml Output Total 625 ml 725 ml Balance -311 ml -109 ml Result Diagram: 11/15/16 0349 11/15/16 0908 Imaging Right lower lung infiltrate Objective Remarks Drips: Heparin GENERAL: This is a well-nourished, well-developed patient who is alert, sitting up in [facility] bed conversant with his sister. SKIN: Warm and dry HEAD: Atraumatic. Normocephalic. EYES: Pupils equal round and reactive. ENT: Nose without bleeding NECK: Trachea midline. No JVD or lymphadenopathy. CARDIOVASCULAR: Regular rate and rhythm with no murmurs rubs or gallops. RESPIRATORY: Breath sounds equal bilaterally. Crackles at right base with some rhonchi. On 2 L nasal cannula. GASTROINTESTINAL: Abdomen soft, no tenderness. No organomegaly : Murray catheter in place with bloody urine MUSCULOSKELETAL: Extremities without clubbing, cyanosis. Edema is present bilateral upper extremities about 1+. Lower extremities have no edema. NEUROLOGICAL: Awake. Oriented to person, hospital and year.. No tremor. Follows commands and moves all extremities A/P Assessment and Plan NEURO: Alcohol withdrawal syndrome Alcohol dependence -Off Precedex.. Continue CIWA protocol. - Continue thiamine folic acid. D/c IV vitamins and change to po. RESP: Acute hypoxemic respiratory failure Right lower lobe pneumonia COPD exacerbation -On nasal cannula, continue to wean as tolerated. Now the patient is cooperative order IS q1hr - DuoNeb every 6 hours and when necessary - IV Solu-Medrol 40 mg every 12, was weaned yesterday. Will wean prednisone to 10 mg daily. Patient had completed a prednisone taper pack about 2 weeks prior to admission. - Abx as per below. - Follow-up chest x-ray improving infiltrates CV: ACS/NSTEMI Probable CHF/elevated BNP Ischemic cardiomyopathy EF 25% Coronary artery disease Ventricular tachycardia status post AICD Biventricular pacer - Continue aspirin. Use prn s/l nitro - Continue IV heparin per Dr. Jackson. Cath on Wednesday if withdrawal symptoms better controlled - Continue home meds including Entresto, sotalol, Lipitor, imdur -Off IVF GI: Liver cirrhosis -Swallow eval today and advanced heart healthy diet if appropriate. Change Protonix by mouth. /Endo Hematuria - Murray is patent. Hematuria after Murray trauma on 11/13, will maintain Murray to avoid urinary obstruction and allow for healing. ID: Severe sepsis-improving Lactic acidosis-resolved Right lower lobe pneumonia - Source of sepsis most likely right lower lobe pneumonia, improving. - Continue cefepime 11/10 #5, d/c Azithromycin 11/10 #5. Flagyl, and 1 dose of vancomycin previously given HEME: - Monitor CBC, CMP, coags - IV Heparin- per Dr. Jackson ENDO: Hyponatremia/hyperkalemia - Patient states he is not on chronic steroids. Changed to prednisone 10 mg daily. PROPH: - Bilateral lower extremity SCDs. IV Heparin, Protonix changed to po. LINES: - Utilize peripheral IVs, Out of bed today. PT. Patient and his sister updated at bedside. Discussed with Dr. Jackson. Level 2 Fadia Medrano MD Nov 15, 2016 16:48
--- NOTE | 2016-11-15 17:13 | PD.TRANSFR ---
Transfer Summary Admission Date Nov 10, 2016 at 08:56 Admitting Diagnosis CHF exacerbation, respiratory failure Diagnoses: (1) Acute respiratory failure Diagnosis: Principal (2) Severe sepsis Diagnosis: Principal (3) HCAP (healthcare-associated pneumonia) Diagnosis: Principal (4) COPD with exacerbation Diagnosis: Principal (5) Hyponatremia Diagnosis: Principal (6) CHF (congestive heart failure) Diagnosis: Secondary (7) CAD (coronary artery disease) Diagnosis: Secondary (8) COPD (chronic obstructive pulmonary disease) Diagnosis: Secondary (9) Hyperlipidemia Diagnosis: Secondary (10) Non-sustained ventricular tachycardia Diagnosis: Secondary (11) EtOH dependence Diagnosis: Secondary (12) History of CHF (congestive heart failure) Diagnosis: Secondary (13) Diabetes mellitus, type 2 Diagnosis: Secondary (14) Ischemic cardiomyopathy Diagnosis: Secondary (15) Alcoholic cirrhosis Diagnosis: Secondary (16) Systolic heart failure, chronic Diagnosis: Secondary Transfer Summary/Subjective Patient is a 66-year-old male with past medical history significant for coronary artery disease, ischemic cardiomyopathy, ventricular tachycardia, status post AICD, liver cirrhosis, continued alcohol use, COPD who presented to the emergency department with one-day duration of chest pain and shortness of breath. He woke up with shortness of breath and chest pain, took one sublingual nitroglycerin and called ambulance services. He was given 2 additional sublingual nitroglycerin, aspirin and 162 mg by mouth by EMS. He had oxygen saturation 89%, he was placed on nonrebreather mask and transported to [place] ED. He quit smoking about one year ago but continues to drink 2 beers daily. The patient was placed on BiPAP with some improvement in symptoms. Chest x-ray showed right lower lobe infiltrate concerning for healthcare associated pneumonia as he was recently admitted and discharged from hospital (10/20/16-10/23/16 for chest pain COPD and CHF). Patient received Rocephin and azithromycin in the ED. His lab work showed WBC 13.4 with left shift, sodium was 123 potassium 5.5, lactic acid was 4.9 and BNP was 1185. I evaluated the patient in the ICU. He is in moderate distress on BiPAP. Intermittent chest pain requiring nitroglycerin-we'll start on nitro drip. Initial troponin is negative. I have placed him on cefepime and Flagyl for healthcare associated pneumonia. Careful hydration with normal saline to correct hyponatremia. Patient will be continued on aspirin and sotalol, start IV heparin until ACS is ruled out. Consult cardiology Dr. Davenport his primary migratory worker. Also patient developed possible nonsustained V. tach in the ICU 11/11/16: Complaints of intermittent chest pain. Na 126. Troponin 0.9. Will dc nitro gtt. Tremulous. Drinks 4-6 beers daily. Start CIWA protocol 11/12: Patient developed more pronounced withdrawal symptoms overnight. Currently on Precedex and getting when necessary benzodiazepines. Patient is lethargic intermittently agitated. Oriented to person only 11/13: Patient remains heavily sedated due to alcohol withdrawal. Denies chest pain. Received multiple doses of Ativan. I would wean to DC Precedex. Cardiac catheterization now postponed till Wednesday due to alcohol withdrawal 11/14 Off Precedex. Reportedly tugged on his Murray and now has some hematuria. Murray appears patent. Hemoglobin stable at 10.2. Platelets are normal at 173. On heparin drip. Cardiac catheterization tentatively Wednesday. Afebrile,. Hasn 't been out of bed. Subjective: 11/15 [facility] this morning. Patient seen earlier. Still with some hematuria but slightly improved. Hemoglobin stable. Oriented and seems to have gotten through DT's, oriented x3. Denies CP or SOB. On RA. Was out of bed to chair today. Stood up some with assist. Objective Vital Signs Date Time Temp Pulse Resp B/P (MAP) Pulse Ox O2 Delivery O2 Flow Rate FiO2 11/15/16 14:00 80 11/15/16 13:00 97/62 (74) 96 11/15/16 12:00 98.4 27 11/15/16 07:22 Nasal Cannula 1.00 11/13/16 07:25 35 Intake and Output 11/15/16 11/15/16 11/16/16 08:00 16:00 00:00 Intake Total 314 ml 616 ml Output Total 625 ml 725 ml Balance -311 ml -109 ml Result Diagram: 11/15/16 0349 11/15/16 0908 Imaging Right lower lung infiltrate Objective Remarks Drips: Heparin GENERAL: This is a well-nourished, well-developed patient who is alert, sitting up in [facility] bed conversant with his sister. SKIN: Warm and dry HEAD: Atraumatic. Normocephalic. EYES: Pupils equal round and reactive. ENT: Nose without bleeding NECK: Trachea midline. No JVD or lymphadenopathy. CARDIOVASCULAR: Regular rate and rhythm with no murmurs rubs or gallops. RESPIRATORY: Breath sounds equal bilaterally. Crackles at right base with some rhonchi. On 2 L nasal cannula. GASTROINTESTINAL: Abdomen soft, no tenderness. No organomegaly : Murray catheter in place with bloody urine MUSCULOSKELETAL: Extremities without clubbing, cyanosis. Edema is present bilateral upper extremities about 1+. Lower extremities have no edema. NEUROLOGICAL: Awake. Oriented to person, hospital and year.. No tremor. Follows commands and moves all extremities A/P Assessment and Plan NEURO: Alcohol withdrawal syndrome Alcohol dependence -Off Precedex.. D/c CIWA protocol. - Continue thiamine folic acid po. RESP: Acute hypoxemic respiratory failure Right lower lobe pneumonia COPD exacerbation -On nasal cannula, continue to wean as tolerated. IS q 1 hour now that patient is cooperative. - DuoNeb every 6 hours and when necessary - IV Solu-Medrol 40 mg every 12, was weaned yesterday. Will wean prednisone to 10 mg daily. Patient had completed a prednisone taper pack about 2 weeks prior to admission. - Abx as per below. - Follow-up chest x-ray improving infiltrates CV: ACS/NSTEMI Probable CHF/elevated BNP Ischemic cardiomyopathy EF 25% Coronary artery disease Ventricular tachycardia status post AICD Biventricular pacer - Continue aspirin. Use prn s/l nitro - Continue IV heparin per Dr. Jackson. Cath on Wednesday. - Continue home meds including Entresto, sotalol, Lipitor, imdur -Off IVF GI: Liver cirrhosis -Swallow eval completed and advanced heart healthy diet if appropriate. Change Protonix by mouth. /Endo Hematuria - Murray is patent. Hematuria after Murray trauma on 11/13, will maintain Murray to avoid urinary obstruction and allow for healing. Urology followup as outpatient. ID: Severe sepsis-improving Lactic acidosis-resolved Right lower lobe pneumonia - Source of sepsis most likely right lower lobe pneumonia, improving. - Continue cefepime 11/10 #6, Completed 5 day course of Azithromycin 11/10-11/14. Flagyl, and 1 dose of vancomycin previously given HEME: - Monitor CBC, CMP, coags - IV Heparin- per Dr. Jackson ENDO: Hyponatremia/hyperkalemia - Patient states he is not on chronic steroids. Changed to prednisone 10 mg daily and then plant to d/c. PROPH: - Bilateral lower extremity SCDs. IV Heparin, Protonix changed to po. LINES: - Utilize peripheral IVs, Out of bed . PT. Discussed with Dr. Jackson. Sister concerned with feasibility of cath after procedure was terminated last time. Dr. Jackson aware and reviewing prior images. Transfer to [facility]. Hospitalist to assume care 11/16. Level 2 Fadia Medrano MD Nov 15, 2016 17:12
[2016-11-15] MEDS ORDERED: DEXTROSE 50% IN WATER 50 ML VIAL(D50) IV PRN (17:15)
[2016-11-15] MEDS ORDERED: GLUCAGON 1 MG/ML VIAL OTHER PRN (17:15)
[2016-11-15] MEDS: HEPARIN-D5W 25,000 U/250 ML 250 ML IV SCH (18:20)
[2016-11-16] VITALS (24 sets, daily range): BP systolic 93–137; BP diastolic 62–86; PULSE 74–101; RESP 18–20; TEMP 98.1–98.6; O2SAT 93–97
[2016-11-16] MEDS: CEFEPIME INJ 2,000 MG in SODIUM CHLORIDE 0.9% INJ 100 ML IV SCH ×3 (03:08→18:00)
[2016-11-16] MEDS: CHLORHEXIDINE GLUCONATE 2 % 1 PACK (2 CLOTHS) TOP SCH (04:00)
[2016-11-16] MEDS: RESP: ALBUTEROL 2.5 MG/IPRATROPIUM 0.5 MG NEB (SCH) NEB ×4 (04:16→19:21)
[2016-11-16] MEDS: INSULIN ASPART SUPPLEMENTAL SCALE SQ SCH ×4 (06:13→21:00)
[2016-11-16 06:49] LABS: AUTOMATED NEUTROPHIL # 6.2 TH/MM3 (1.8-7.7); BASOPHIL % 0.1 % (0.0-2.0); EOSINOPHIL # 0.3 TH/MM3 (0-0.4); EOSINOPHIL % 3.5 % (0.0-4.0); HEMATOCRIT 32.9 % (39.0-51.0); HEMO FLAGS DIFF FINAL; LYMPH % 10.4 % (9.0-44.0); LYMPHOCYTE # 0.9 TH/MM3 (1.0-4.8); MEAN CELL VOLUME 96.9 FL (80.0-100.0); MEAN CORPUSCULAR HGB CONC 31.9 % (32.0-36.0); MONO % 11.3 % (0.0-8.0); NEUT % 74.7 % (16.0-70.0); PLATELET COUNT 111 TH/MM3 (150-450); RED BLOOD COUNT 3.39 MIL/MM3 (4.50-5.90); RED CELL DISTRIBUTION WIDTH 18.4 % (11.6-17.2); WHITE BLOOD COUNT 8.3 TH/MM3 (4.0-11.0)
[2016-11-16 07:20] LABS: BICARBONATE 27.5 MEQ/L (21.0-32.0)
[2016-11-16] MEDS: CHLORHEXIDINE 0.12% (ORAL KIT) 15 ML CUP MT SCH ×2 (08:00→20:00)
[2016-11-16] MEDS: PANTOPRAZOLE SOD 40 MG DELAYED RELEASE TAB PO SCH (08:42)
[2016-11-16] MEDS: ASPIRIN 81 MG CHEW TAB CHEW SCH (08:42)
[2016-11-16] MEDS: ATORVASTATIN 40 MG TAB PO SCH (08:43)
[2016-11-16] MEDS: FOLIC ACID 1 MG TAB PO SCH (08:43)
[2016-11-16] MEDS: THIAMINE HCL 100 MG TAB PO SCH (08:43)
[2016-11-16] MEDS: CHOLECALCIFEROL (VIT D3) 1000 UNIT TAB PO SCH (08:44)
[2016-11-16] MEDS: MULTIVITAMIN TAB PO SCH (08:44)
[2016-11-16] MEDS: SOTALOL HCL 80 MG TAB PO SCH ×2 (08:44→21:38)
[2016-11-16] MEDS: ISOSORBIDE MONONITRATE 30 MG TAB PO SCH (08:44)
[2016-11-16] MEDS: predniSONE 10 MG TAB PO SCH (08:44)
[2016-11-16] MEDS: FUROSEMIDE 20 MG TAB PO SCH (08:44)
[2016-11-16 10:17] LABS: APTT (PATIENT) 47.8 SEC (24.3-30.1)
--- NOTE | 2016-11-16 13:24 | HHI.PR ---
Subjective Remarks teaching specialists Note: Patient is a 66-year-old male with past medical history significant for coronary artery disease, ischemic cardiomyopathy, ventricular tachycardia, status post AICD, liver cirrhosis, continued alcohol use, COPD who presented to the emergency department with one-day duration of chest pain and shortness of breath. He woke up with shortness of breath and chest pain, took one sublingual nitroglycerin and called ambulance services. He was given 2 additional sublingual nitroglycerin, aspirin and 162 mg by mouth by EMS. He had oxygen saturation 89%, he was placed on nonrebreather mask and transported to [place] ED. He quit smoking about one year ago but continues to drink 2 beers daily. The patient was placed on BiPAP with some improvement in symptoms. Chest x-ray showed right lower lobe infiltrate concerning for healthcare associated pneumonia as he was recently admitted and discharged from hospital (10/20/16-10/23/16 for chest pain COPD and CHF). Patient received Rocephin and azithromycin in the ED. His lab work showed WBC 13.4 with left shift, sodium was 123 potassium 5.5, lactic acid was 4.9 and BNP was 1185. I evaluated the patient in the ICU. He is in moderate distress on BiPAP. Intermittent chest pain requiring nitroglycerin-we'll start on nitro drip. Initial troponin is negative. I have placed him on cefepime and Flagyl for healthcare associated pneumonia. Careful hydration with normal saline to correct hyponatremia. Patient will be continued on aspirin and sotalol, start IV heparin until ACS is ruled out. Consult cardiology Dr. Davenport his primary marketing intelligence analyst. Also patient developed possible nonsustained V. tach in the ICU 11/11/16: Complaints of intermittent chest pain. Na 126. Troponin 0.9. Will dc nitro gtt. Tremulous. Drinks 4-6 beers daily. Start CIWA protocol 11/12: Patient developed more pronounced withdrawal symptoms overnight. Currently on Precedex and getting when necessary benzodiazepines. Patient is lethargic intermittently agitated. Oriented to person only 11/13: Patient remains heavily sedated due to alcohol withdrawal. Denies chest pain. Received multiple doses of Ativan. I would wean to DC Precedex. Cardiac catheterization now postponed till Wednesday due to alcohol withdrawal 11/14 Off Precedex. Reportedly tugged on his Murray and now has some hematuria. Murray appears patent. Hemoglobin stable at 10.2. Platelets are normal at 173. On heparin drip. Cardiac catheterization tentatively Wednesday. Afebrile,. Hasn 't been out of bed. 11/15 [facility] downtime this morning. Patient seen earlier. Still with some hematuria but slightly improved. Hemoglobin stable. Hospitalist Notes: 11/16: Seen in his bedroom and discussed with nurse Miss Oakes, patient awaiting for Procedure Cardiac Cath later today, no complaint controlled blood sugar, no nausea, vomit or diarrhea. Objective Vital Signs Date Time Temp Pulse Resp B/P (MAP) Pulse Ox O2 Delivery O2 Flow Rate FiO2 11/16/16 12:45 78 11/16/16 11:30 98.6 101 18 93/62 (72) 96 11/16/16 11:30 84 11/16/16 10:40 94 11/16/16 09:20 95 11/16/16 09:00 93 11/16/16 08:30 86 11/16/16 08:30 93 Room Air 11/16/16 08:30 98.5 101 18 119/79 (92) 93 11/16/16 06:00 84 11/16/16 05:00 86 11/16/16 04:00 86 11/16/16 04:00 98.4 87 20 116/75 (89) 93 11/16/16 03:00 84 11/16/16 02:00 78 11/16/16 01:00 78 11/16/16 00:00 77 11/15/16 23:00 86 11/15/16 22:33 98.3 80 20 122/76 (91) 94 11/15/16 22:00 76 11/15/16 20:32 96 21 11/15/16 20:00 82 11/15/16 19:00 95 Nasal Cannula 2.00 11/15/16 18:00 79 11/15/16 18:00 79 23 123/62 (82) 93 11/15/16 17:00 81 22 124/73 (90) 92 11/15/16 16:00 98.2 78 112/71 (85) 96 11/15/16 16:00 78 11/15/16 15:00 79 115/67 (83) 96 11/15/16 14:00 80 108/65 (79) 97 11/15/16 14:00 80 I/O 11/15/16 11/15/16 11/15/16 11/16/16 11/16/16 11/16/16 06:59 14:59 22:59 06:59 14:59 22:59 Intake Total 314 ml 616 ml 100 ml 406 ml Output Total 625 ml 725 ml 400 ml Balance -311 ml -109 ml 100 ml 6 ml Intake Oral 140 ml 444 ml 240 ml IV Total 174 ml 172 ml 100 ml 166 ml Output Urine Total 625 ml 725 ml 400 ml # Bowel Movements 1 1 Result Diagram: 11/16/1643611/16/16436 Imaging Last Impressions Chest X-Ray 11/13/16 06 Signed Impressions: Service Date/Time: Sunday, November 13, 2016 03:36 - CONCLUSION: 1. Cardiomegaly with mild interstitial prominence suggesting some degree of vascular congestion/volume overload. 2. Linear atelectasis/scar in the left base. Ari Kam MD Procedures None Other Results Laboratory Tests Test 11/10/16 06:35 11/10/16 07:00 11/10/16 08:15 11/10/16 08:55 B-Type Natriuretic Peptide 1185 PG/ML Urine Color YELLOW Urine Turbidity HAZY Urine pH 6.0 Urine Specific [place] 1.020 Urine Protein 300 mg/dL Urine Glucose (UA) NEG mg/dL Urine Ketones NEG mg/dL Urine Occult Blood SMALL Urine Nitrite NEG Urine Bilirubin NEG Urine Urobilinogen LESS THAN 2.0 MG/DL Urine Leukocyte Esterase NEG Urine RBC 2 /hpf Urine WBC 2 /hpf Urine Squamous Epithelial Cells 1 /hpf Urine Amorphous Sediment FEW Urine Hyaline Casts 8 /lpf Urine Granular Casts 3 /lpf Urine Mucus FEW /lpf Microscopic Urinalysis Comment CULT NOT INDICATED Total Creatine Kinase 201 U/L Creatine Kinase MB 7.6 NG/ML Nasal Screen MRSA (PCR) MRSA NOT DETECTED Test 11/10/16 09:00 11/10/16 15:51 11/10/16 20:23 11/12/16 05:25 Blood Gas Ventilator Setting IPAP15/[id number] Prothrombin Time 13.4 SEC Prothromb Time International Ratio 1.2 RATIO Lactic Acid Level 1.2 mmol/L Troponin I 0.97 NG/ML Protein Corrected Calcium 7.6 MG/DL Test 11/12/16 08:50 11/14/16 05:14 11/16/16 04:37 11/16/16 09:44 Blood Gas Puncture Site RT RADIAL Blood Gas Patient Temperature 98.6 Blood Gas HCO3 23 mmol/L Blood Gas Base Excess -1.8 mmol/L Blood Gas Oxygen Saturation 96 % Arterial Blood pH 7.34 Arterial Blood Partial Pressure CO2 44 mmHg Arterial Blood Partial Pressure O2 117 mmHg Arterial Blood Oxygen Content 13.5 Vol % Arterial Blood Carboxyhemoglobin 1.8 % Arterial Blood Methemoglobin 0.7 % Blood Gas Hemoglobin 9.8 G/DL Oxygen Delivery Device VENTI Blood Gas Inspired Oxygen 50 % Blood Urea Nitrogen 37 MG/DL 23 MG/DL Creatinine 0.92 MG/DL 0.68 MG/DL Random Glucose 158 MG/DL 114 MG/DL Total Protein 6.9 GM/DL Albumin 3.1 GM/DL Calcium Level 7.7 MG/DL 7.9 MG/DL Magnesium Level 2.5 MG/DL Alkaline Phosphatase 74 U/L Aspartate Amino Transf (AST/SGOT) 50 U/L Alanine Aminotransferase (ALT/SGPT) 54 U/L Total Bilirubin 1.0 MG/DL Sodium Level 135 MEQ/L 139 MEQ/L Potassium Level 4.5 MEQ/L 4.0 MEQ/L Chloride Level 103 MEQ/L 104 MEQ/L Carbon Dioxide Level 24.0 MEQ/L 27.5 MEQ/L White Blood Count 8.3 TH/MM3 Red Blood Count 3.39 MIL/MM3 Hemoglobin 10.5 GM/DL Hematocrit 32.9 % Mean Corpuscular Volume 96.9 FL Mean Corpuscular Hemoglobin 31.0 PG Mean Corpuscular Hemoglobin Concent 31.9 % Red Cell Distribution Width 18.4 % Platelet Count 111 TH/MM3 Mean Platelet Volume 9.1 FL Neutrophils (%) (Auto) 74.7 % Lymphocytes (%) (Auto) 10.4 % Monocytes (%) (Auto) 11.3 % Eosinophils (%) (Auto) 3.5 % Basophils (%) (Auto) 0.1 % Neutrophils # (Auto) 6.2 TH/MM3 Lymphocytes # (Auto) 0.9 TH/MM3 Monocytes # (Auto) 0.9 TH/MM3 Eosinophils # (Auto) 0.3 TH/MM3 Basophils # (Auto) 0.0 TH/MM3 CBC Comment DIFF FINAL Differential Comment Anion Gap 8 MEQ/L Estimat Glomerular Filtration Rate 117 ML/MIN Activated Partial Thromboplast Time 47.8 SEC Objective Remarks GENERAL: This is a well-nourished, well-developed patient who is alert, sitting up in [facility] bed conversant with his sister. SKIN: Warm and dry HEAD: Atraumatic. Normocephalic. EYES: Pupils equal round and reactive. ENT: Nose without bleeding NECK: Trachea midline. No JVD or lymphadenopathy. CARDIOVASCULAR: Regular rate and rhythm with no murmurs rubs or gallops. RESPIRATORY: Breath sounds equal bilaterally. Crackles at right base with some rhonchi. On 2 L nasal cannula. GASTROINTESTINAL: Abdomen soft, no tenderness. No organomegaly : Murray catheter in place with bloody urine MUSCULOSKELETAL: Extremities without clubbing, cyanosis. Edema is present bilateral upper extremities about 1+. Lower extremities have no edema. NEUROLOGICAL: Awake. Oriented to person, hospital and year.. No tremor. Follows commands and moves all extremities Medications and IVs Current Medications Medications (Trade) Dose Ordered Sig/Yakelin Route Start Time Stop Time Status Last Admin (NS Flush) 2 ml UNSCH PRN IVF 11/10/16 06:30 11/11/16 20:15 Cefepime HCl 2000 mg/Sodium Chloride 100 ml @ 200 mls/hr Q8H IV 11/10/16 10:00 11/16/16 09:16 (Morphine Inj) 2 mg Q2H PRN IV 11/10/16 09:00 11/11/16 09:13 (Duoneb Neb) 1 ampule Q6HR NEB NEB 11/10/16 10:00 11/16/16 09:18 (Duoneb Neb) 1 ampule Q4HR NEB PRN INH 11/10/16 09:00 (Peridex 0.12% Liq) 15 ml BID@08,20 MT 11/10/16 20:00 11/15/16 20:00 Miscellaneous Information 1 Q361D XX 11/10/16 09:00 11/10/16 09:00 (Chlorhexidine 2% Cloth) Taper DAILY@04 TOP 11/11/16 04:00 11/07/17 03:59 11/15/16 04:00 (Chlorhexidine 2% Cloth) 3 pack UNSCH PRN TOP 11/10/16 09:00 (Aspirin Chew) 81 mg DAILY CHEW 11/10/16 09:00 11/16/16 08:42 (Lipitor) 40 mg DAILY PO 11/10/16 09:00 11/16/16 08:43 (Vitamin D3) 1,000 units DAILY PO 11/10/16 09:00 11/16/16 08:44 (Lasix) 20 mg DAILY PO 11/11/16 09:00 Future hold 11/16/16 08:44 (Imdur) 30 mg DAILY PO 11/10/16 09:30 11/16/16 08:44 (Nitrostat Sl) 0.4 mg Q3H PRN SL 11/10/16 09:00 11/10/16 09:54 (Entresto 24-26 Mg) 1 tab BID PO 11/10/16 09:00 Future hold 11/15/16 07:41 (Betapace) 80 mg BID PO 11/10/16 09:00 11/16/16 08:44 (Vitamin B1) 250 mg DAILY PO 11/10/16 09:30 11/16/16 08:43 (D50w (Vial) Inj) 50 ml UNSCH PRN IV PUSH 11/10/16 09:45 (Glucagon Inj) 1 mg UNSCH PRN OTHER 11/10/16 09:45 Heparin Sodium/ Dextrose 250 ml @ 0 mls/hr TITRATE IV 11/10/16 13:30 11/15/16 18:20 (Protonix) 40 mg DAILY PO 11/15/16 09:00 11/16/16 08:42 (Deltasone) 10 mg DAILY PO 11/15/16 09:00 11/17/16 08:59 11/16/16 08:44 (Theragran) 1 tab DAILY PO 11/15/16 09:00 11/16/16 08:44 (Folate) 1 mg DAILY PO 11/15/16 09:00 11/16/16 08:43 (Ultram) 50 mg Q6H PRN PO 11/14/16 14:30 11/15/16 14:35 (D50w (Vial) Inj) 50 ml UNSCH PRN IV 11/15/16 17:15 (Glucagon Inj) 1 mg UNSCH PRN OTHER 11/15/16 17:15 (NovoLOG SUPPLEMENTAL SCALE) 1 ACHS SLIDING SCALE SQ 11/15/16 21:00 A/P Assessment and Plan 1. Alcohol withdrawal syndrome/alcohol dependence. was on Precedex, CIWA protocol, 2. Acute Hypoxemic respiratory failure/right Lower lobe pneumonia/COPD exacerbation, continue Bronchodilator, Mucolytic, Incentive spirometry, Steroids. Cefepime 3. ACS/NSTEMI/ Probable CHF, ischemic Cardiomyopathy EF 25%, Ventricular tachycardia status post AICD Biventricular pacer, IV Heparin, probable Cardiac Cath continue Entresto, Sotalool, Lipitor Imdur. Scheduled for Cardiac Cath later today. follow renal function in am tomorrow. 4. Cirrhosis, Heart healthy diet and PPIs 5. Hematuria after Murray Trauma 6. Severe Sepsis Improving, on Cefepime and Azithromycin, Flagyl. PROPH: - Bilateral lower extremity SCDs. IV Heparin, Protonix changed to po. Mckay Wynne MD Nov 16, 2016 13:24
[2016-11-16] MEDS ORDERED: HEPARIN-NS/PF INJ 1,000 ML ONE (14:15)
[2016-11-16] MEDS ORDERED: MIDAZOLAM HCL 2 MG/2 ML VIAL ONE (14:16)
[2016-11-16] MEDS ORDERED: VERAPAMIL HCL 5 MG/2 ML VIAL ONE (14:48)
[2016-11-16] MEDS ORDERED: NITROGLYCERIN INJ 0 ML ONE (14:49)
[2016-11-16] MEDS ORDERED: HEPARIN SODIUM - IV 10,000 UNITS/10 ML VIAL ONE (14:49)
[2016-11-16] MEDS ORDERED: IOHEXOL 350 MG/ML 100 ML BTL (for Cath Lab) OTHER ONE (15:00)
[2016-11-16] MEDS ORDERED: IOHEXOL 350 MG/ML 50 ML BTL (for Cath Lab) OTHER ONE (15:00)
[2016-11-16] MEDS ORDERED: INSULIN DETEMIR 100 UNITS/ML VIAL SQ ONE (16:30)
[2016-11-16] MEDS ORDERED: MISC INFORMATION XX ONE (16:45)
--- NOTE | 2016-11-16 16:54 | CATHPROC ---
[employer] HIS Report Study Information Study Number Admission Scheduled Start Study Start [id number] Nov 10 2016 8:56AM 11/15/2016 Nov 16 2016 2:43PM [place] Service Cardiac Catheterization Admit Source Facility Department Emergency department [facility] - [employer] Physician and Clinical Staff Initial Hieu Gonzalez Dairy Inspector Rachael Goel BSRCorrine Recorder Adry Yanes,RT(R) (BS) Scrub Vinh ValeraRT(R) Procedures Performed Procedure Location (Site) Vessel Name Aortic Arch Coronary Angiograms LCA Left Coronary Coronary Angiograms RCA Right Coronary Coronary Angiograms BETANCOURT-LAD Left Coronary Coronary Angiograms JOSE DE JESUS Equipment Time Optics Technical Officer Description Size Mfg Part Number Used/Scraped [id number] 16:08 [employer]VED[employer] HUNT SWAN RINA CATHETER FR 7 Used *[id number] TRANSDUCER, TRUWAVE [id number] 14:57 QUEVEDO HUNT * Used W/STOCKCOCK *[id number] INTRODUCER SET, [id number] 15:05 [employer]. FR 5 Used MICROPUNCTURE *[id number] 534-545T *[id number] 534-520T *[id number] 534-521T *[id number] 534-542T *[id number] 534-550S *[id number] 14:57 MEDLINE IND[employer]ES PACK, CCL CUSTOM * Used *[id number] 14:57 Extreme [employer] (formerly [employer]) MEDICAL SHEATH, FR5.5 PRELUDE 11CM FR 5 [id number] Used [id number] 14:57 [employer] (formerly [employer]) MEDICAL WIRE, 3MMJ .035 180CM 180CM Used *[id number] 14:57 NAMIC MANIFOLD, 4 PORT * Used *[id number] 14:57 NYCOMED OMNIPAQUE, 350 MG, 150ML 150ML [id number] Used [id number] 14:57 [employer] BLANKET,WARM AIR CCL * Used *[id number] 15:04 TERUMO MEDICAL SHEATH, FR5 TERUMO (10CM) FR 5 Used *[id number] 15:19 [employer]UMO MEDICAL SHEATH, FR5 TERUMO (10CM) FR 5 Used *[id number] 16:07 TERUMO MEDICAL SHEATH, FR7 TERUMO (10CM) FR 7 Used *[id number] History: Current Medications Medication Dosage/Unit Route Frequency Last Date/Time Taken Beta Dylan Statins (any) ASA History: Allergies Allergy Reaction No Known Allergies History: Risk Factors Family History of Hypertension Dyslipidemia Previous [place] Previous Heart Failure Premature CAD Yes Yes Yes Yes Yes Prior Valve Prior PCI Prior CABG Surgery No Yes Yes Cerebrovascular Peripheral Artery Chronic Lung On Dialysis Diabetes Disease Disease Disease No No Yes Yes Yes History: Stress Tests Stress or Imaging Studies Performed No History: Other Current Smoker Method Quit Packs a Day Years Used Pack Years No Cigarettes 2 Years Ago 1 40 40 Labs Hgb (g/dl) Hct (%) WBC (l/cumm) Platelets (thousands) 11.60-17.00 35.00-51.00 4.00-11.00 150.00-450.00 10.5 32.9 8.3 111 Glucose (mg/dl) BUN (mg/dl) Creatinine (mg/dl) BUN:Creatinine (1:x) 74.00-106.00 7.00-18.00 0.50-1.30 10.00-20.00 114 23 0.6 38.3 Na (meq/l) K (meq/l) 136.00-145.00 3.50-5.10 139 4 INR (PTT:PT) 0.90-1.10 1.2 Troponin I (ng/ml) CPK-MB (ng/ML) 0.02-0.05 0.50-3.60 0.97 Not Drawn Medication Medication Total Dose (Bolus/Oral) Medication Total Dosage/Unit 1% XYLOCAINE 20 mL FENTANYL 25 mcg VERSED 0.5 mg Medications (Bolus/Oral) Medication Time Given Dosage/Unit Administered By Reason VERSED 11/16/2016 3:09:53 PM 0.5 mg Rachael Goel 0.5 mg VERSED given in lab by Rachael Goel BSRN in Right Wrist via Peripheral IV. FENTANYL 11/16/2016 3:10:01 PM 25 mcg Rachael Goel 25 mcg FENTANYL given in lab by Rachael Goel BSRN in Right Wrist via Peripheral IV. 1% XYLOCAINE 11/16/2016 3:11:58 PM 20 mL Hieu Jackson 20 mL 1% XYLOCAINE given in lab by Hieu Jackson in Right Groin via Subcutaneous. Medication (Drip) Medication Time Given Dosage/Unit Concentration/Unit Diluent (ml) Solution IV Solutions 11/16/2016 2:46:17 PM 0 mL (IV) 500 NaCl .9 IV Solutions given in lab by Rachael Goel BSRN in Right Wrist via Peripheral IV. Pump/Drip Flow = 100 ml/hr using NaCl .9. Initial Case Assessment Cardiovascular HR Rhythm NIBP Chest Pain 77 paced 122/78 0 Edema Present Skin color Skin None Normal Warm Dry Circulatory - Right Pulses Dorsalis Pedis Femoral d 1 Scale (0,1,2,3,4,d) Circulatory - Left Pulses Dorsalis Pedis Femoral d 1 Scale (0,1,2,3,4,d) Circulatory - Lower Extremities Color Lower Right Color Lower Left Normal Normal Neurological State Oriented to time-place- Alert Moves all extremities person Respiration - General Respiration Rate SpO2 (%) (B/min) 17 98 Final Case Assessment Cardiovascular HR Rhythm NIBP Chest Pain 85 paced 130/86 0 Edema Present Skin color Skin None Normal Warm Dry Neurological State Oriented to time-place- Alert Moves all extremities person Respiration - General Respiration Rate SpO2 (%) O2 (lpm) (B/min) 18 98 2 Chronological Log Time Study Chronological Log 14:35:43 Patient arrived via Bed. 14:35:48 Patient Name, D.O.B, / Armband Verified By R.N. 14:35:51 Consent signed by the physician and the patient and verified by the [employer] staff. 14:45:55 Pre-op and post- op instructions given; patient acknowledges understanding of instructions. 14:45:56 Verbal Stimulation=2 Physical Stimulation=2 Airway=2 Respiration=2 TOTAL=8. (0=absent, 1=li mited, 2=present) 14:45:57 Presedation assessment performed by [employer] RN. 14:45:59 Allens test performed on the left radial and ulnar artery. 14:46:01 Immediate Presedation assesment performed by physician. 14:46:07 Patient has been NPO for More than 6Hrs. 14:46:08 Skin Breakdown multiple areas of echymosis 14:46:10 Patient Warmer Placed on the Table. 14:46:12 Emily Prominences Protected 14:46:16 A # 20 IV was noted in the Wrist (right). Grade = 0 IV Solutions given in lab by Rachael Goel BSRN in Right Wrist via Peripheral IV. Pump/Drip Flow = 100 ml/hr using 14:46:17 NaCl .9. 14:46:17 History and physical on the chart or being dictated. Assessment: Initial Case, HR=77 BPM, Rhythm=paced, HKDZ=218/78 mmhg, Chest Pain=0, Edema=None, Color=Normal, Skin = Warm, Dry Right Pulses: Pacheco Ped=d, Femoral=1 Left Pulses: Pacheco Ped=d, Femoral=1 14:46:19 Lower Right Extremities: Color=Normal Lower Left Extremities: Color=Normal Neurological: State=Alert, Ox3, BORRERO Respiration: Resp=17 B/min, SpO2=98 % Vitals capture started with the following parameters, Patient=Adult, Interval=5 min, Initial Pr kqivnw=532 mmHg, 14:48:13 Deflation Rate=5 mmHg, Cuff placed on Left Leg 14:48:47 HR=79 bpm, TSKR=266/78 mmhg, SpO2=96.0 %, Resp=19 B/min, Pain=0, Jaja=10, Wang=2 14:49:45 Reference ECG taken 14:53:40 HR=84 bpm, OGWY=404/85 mmhg, Resp=30 B/min, Pain=0, Jaja=10, Wang=2 14:56:47 Bilateral groins prepped with 2% chlorhexidine, and with a 3 min. waiting time. 14:58:39 HR=82 bpm, XPIP=613/76 mmhg, SpO2=98.0 %, Resp=28 B/min, Pain=0, Jaja=10, Wang=2 15:03:18 Pressure channel 1 zeroed. 15:03:42 HR=80 bpm, YPRX=320/82 mmhg, SpO2=99.0 %, Resp=17 B/min, Pain=0, Jaja=10, Wang=2 15:08:41 HR=81 bpm, RNEQ=585/81 mmhg, Resp=17 B/min, Pain=0, Jaja=10, Wang=2 Time Out. Correct patient, correct procedure,correct physician, power injector not loaded with contrast with surgical 15:09:06 team present. Time Out Concurred by , individual staff in procedure 15:09:33 Case Start 15:09:53 0.5 mg VERSED given in lab by Rachael Goel BSRN in Right Wrist via Peripheral IV. 15:10:01 25 mcg FENTANYL given in lab by Rachael Goel BSRN in Right Wrist via Peripheral IV. 15:11:58 20 mL 1% XYLOCAINE given in lab by Hieu Jackson in Right Groin via Subcutaneous. 15:13:40 HR=77 bpm, YNJI=941/83 mmhg, SpO2=97.0 %, Resp=24 B/min, Pain=0, Jaja=10, Wang=2 15:18:36 Access site was Right Femoral Vein. 15:18:42 A INTRODUCER SET, MICROPUNCTURE FR 5 was advanced into the Fem Vein (right) using the Percu taneous technique. 15:18:44 HR=82 bpm, EYNG=764/74 mmhg, SpO2=98.0 %, Resp=20 B/min, Pain=0, Jaja=10, Wang=2 A SHEATH, FR5 TERUMO (10CM) FR 5 was exchanged in the Fem Vein (right). This was necessary in o rder to 15:18:54 accomodate a larger catheter. 15:20:32 Access site was Right Femoral Artery. 15:20:38 A INTRODUCER SET, MICROPUNCTURE FR 5 was advanced into the Fem Art (right) using the Percut aneous technique. A SHEATH, FR5 TERUMO (10CM) FR 5 was exchanged in the Fem Art (right). This was necessary in or mamadou to 15:20:45 accomodate a larger catheter. A JR 4.0 INFINITI CATHETER FR 5 was advanced over a wire. OMNIPAQUE, 350 MG, 150ML 150ML was us ed for 15:22:29 injections. Recorded Pressure: LV, HR=83, Condition=Condition 1 15:23:29 (Left Ventricle) LV 118/7/18 15:23:45 HR=81 bpm, TXMR=227/83 mmhg, SpO2=99.0 %, Resp=21 B/min, Pain=0, Jaja=10, Wang=2 Recorded Pressure: LV, Ao, HR=80, Condition=Condition 1 15:24:00 (Left Ventricle) LV 121/6/22, (Aorta) Ao 127/69/93 15:25:09 The RCA was injected and visualized at various angles. OMNIPAQUE, 350 MG, 150ML 150ML used . Recorded Pressure: Ao, HR=84, Condition=Condition 1 15:25:10 (Aorta) Ao 114/74/91 15:28:44 HR=84 bpm, YAUW=694/83 mmhg, SpO2=98.0 %, Resp=17 B/min, Pain=0, Jaja=10, Wang=2 15:33:49 HR=83 bpm, NIBP=99/73 mmhg, SpO2=99.0 %, Resp=19 B/min, Pain=0, Jaja=10, Wang=2 15:37:07 The JOSE DE JESUS was injected and visualized at various angles. OMNIPAQUE, 350 MG, 150ML 150ML used . 15:38:40 HR=82 bpm, HBRA=014/79 mmhg, SpO2=99.0 %, Resp=19 B/min, Pain=0, Jaja=10, Wang=2 After removing the current catheter a JL 4.0 INFINITI CATHETER FR 5 was advanced over a WIRE, 3 MMJ .035 180CM 15:39:24 180CM. 15:42:45 Pressure channel 1 zeroed. 15:43:43 The LCA was injected and visualized at various angles. OMNIPAQUE, 350 MG, 150ML 150ML used . 15:43:45 HR=80 bpm, BJWW=593/75 mmhg, SpO2=98.0 %, Resp=18 B/min, Pain=0, Jaja=10, Wang=2 After removing the current catheter a MPA-2 INFINITI CATHETER FR 5 was advanced over a WIRE, 3M MJ .035 180CM 15:45:52 180CM. After removing the current catheter a AL 1 INFINITI CATHETER FR 5 was advanced over a WIRE, 3MM J .035 180CM 15:48:25 180CM. 15:48:46 HR=80 bpm, LCPD=604/81 mmhg, Resp=18 B/min, Pain=0, Jaja=10, Wang=2 After removing the current catheter a PIGTAIL STR. INFINITI CATHETER FR 5 was advanced over a W PAUL, 3MMJ .035 15:52:53 180CM 180CM. 15:53:45 HR=79 bpm, XXJN=106/79 mmhg, SpO2=98.0 %, Resp=19 B/min, Pain=0, Jaja=10, Wang=2 Through a PIGTAIL STR. INFINITI CATHETER FR 5, The Aortic Arch was injected at 36 ml/sec for a total of 18 cc's of 15:55:52 contrast. 15:58:44 HR=82 bpm, CQTK=108/78 mmhg, SpO2=99.0 %, Resp=16 B/min, Pain=0, Jaja=10, Wang=2 After removing the current catheter a JR 4.0 INFINITI CATHETER FR 5 was advanced over a WIRE, 3 MMJ .035 180CM 15:59:03 180CM. 16:01:24 The BETANCOURT-LAD was injected and visualized at various angles. OMNIPAQUE, 350 MG, 150ML 150ML used. 16:02:52 Catheter was removed 16:03:45 HR=82 bpm, USAD=451/82 mmhg, SpO2=96.0 %, Resp=18 B/min, Pain=0, Jaja=10, Wang=2 A SHEATH, FR7 TERUMO (10CM) FR 7 was exchanged in the Fem Vein (right). This was necessary in o rder to 16:06:04 accomodate a larger catheter. A SWAN RINA CATHETER FR 7 was advanced over a wire. OMNIPAQUE, 350 MG, 150ML 150ML was used for 16:07:36 injections. 16:08:48 HR=82 bpm, NHBU=602/79 mmhg, Resp=32 B/min, Pain=0, Jaja=10, Wang=2 Recorded Pressure: PCW, HR=83, Condition=Condition 1 16:10:51 (Pulmonary Capillary Wedge) PCW 25/24/23 16:12:13 Saturation: Site=PA (Pulmonary Artery) , O2=67.3 %, Hgb=10.5 gm/dl, Condition=Condition 1. Used in calculation. Recorded Pressure: MPA, HR=85, Condition=Condition 1 16:12:42 (Main Pulmonary Artery) MPA 47/30/38 16:13:44 Saturation: Site=FA (Femoral Artery) , O2=93.3 %, Hgb=10.5 gm/dl, Condition=Condition 1. Us ed in calculation. 16:13:47 HR=83 bpm, PXIR=842/85 mmhg, SpO2=96.0 %, Resp=17 B/min, Pain=0, Jaja=10, Wang=2 Recorded Pressure: RV, HR=82, Condition=Condition 1 16:14:07 (Right Ventricle) RV 20 Recorded Pressure: RA, HR=83, Condition=Condition 1 16:14:30 (Right Atrium) RA 16:14:47 Catheter was removed 16:15:32 Case End 16:18:48 HR=83 bpm, CQKU=909/86 mmhg, SpO2=95.0 %, Resp=18 B/min, Wang=2 Assessment: Final Case, HR=85 BPM, Rhythm=paced, HXEG=715/86 mmhg, Chest Pain=0, Edema=None, Color=Normal, Skin = Warm, Dry 16:19:41 Neurological: State=Alert, Ox3, BORRERO Respiration: Resp=18 B/min, SpO2=98 %, O2=2 lpm 16:20:59 Activated Clotting Time Drawn 16:23:49 HR=84 bpm, BFFL=796/88 mmhg, Resp=17 B/min, Wang=2 16:28:46 Arterial Sheath removed; pressure applied to access site. 16:28:50 HR=78 bpm, NGXV=723/82 mmhg, Resp=20 B/min, Pain=0, Jaja=10, Wang=2 16:33:54 HR=81 bpm, BLOE=923/77 mmhg, SpO2=92.0 %, Resp=18 B/min, Pain=0, Jaja=10, Wang=2 16:38:46 HR=81 bpm, MHVA=990/86 mmhg, SpO2=95.0 %, Resp=20 B/min, Pain=0, Jaja=10, Wang=2 16:39:10 Venous Sheath removed; pressure applied to access site. 16:43:50 HR=80 bpm, HZYA=843/84 mmhg, SpO2=95.0 %, Resp=17 B/min, Pain=0, Jaja=10, Wang=2 16:48:49 HR=81 bpm, VEKF=121/79 mmhg, SpO2=94.0 %, Resp=18 B/min, Pain=0, Jaja=10, Wang=2 16:51:30 Sterile dressing applied to site 16:52:21 Vitals capture stopped. 16:52:28 [facility] called. Spoke to Johanna. 16:52:46 Patient moved to stretcher End Study - Contrast Media Used In Study Contrast Total Opened (mL) Total Used (mL) Total Wasted (mL) Omnipaque 140 140 0 End Study - Maximum Contrast Load Max Contrast Load (mL) 750.0 End Study - Radiation Exposure Fluoro Time (minutes) 22.3 End Study - Patient Disposition Complications Transferred To Interventional Outcome No Telemetry Bed No attempt made
--- NOTE | 2016-11-16 17:04 | PD.CARD.PN ---
Subjective Subjective Remarks Post-cath, no complaints Objective Medications Current Medications Medications (Trade) Dose Ordered Sig/Yakelin Route Start Time Stop Time Status Last Admin (NS Flush) 2 ml UNSCH PRN IVF 11/10/16 06:30 11/11/16 20:15 Cefepime HCl 2000 mg/Sodium Chloride 100 ml @ 200 mls/hr Q8H IV 11/10/16 10:00 11/16/16 09:16 (Morphine Inj) 2 mg Q2H PRN IV 11/10/16 09:00 11/11/16 09:13 (Duoneb Neb) 1 ampule Q6HR NEB NEB 11/10/16 10:00 11/16/16 09:18 (Duoneb Neb) 1 ampule Q4HR NEB PRN INH 11/10/16 09:00 (Peridex 0.12% Liq) 15 ml BID@08,20 MT 11/10/16 20:00 11/15/16 20:00 Miscellaneous Information 1 Q361D XX 11/10/16 09:00 11/10/16 09:00 (Chlorhexidine 2% Cloth) Taper DAILY@04 TOP 11/11/16 04:00 11/07/17 03:59 11/15/16 04:00 (Chlorhexidine 2% Cloth) 3 pack UNSCH PRN TOP 11/10/16 09:00 (Aspirin Chew) 81 mg DAILY CHEW 11/10/16 09:00 11/16/16 08:42 (Lipitor) 40 mg DAILY PO 11/10/16 09:00 11/16/16 08:43 (Vitamin D3) 1,000 units DAILY PO 11/10/16 09:00 11/16/16 08:44 (Lasix) 20 mg DAILY PO 11/11/16 09:00 Future hold 11/16/16 08:44 (Imdur) 30 mg DAILY PO 11/10/16 09:30 11/16/16 08:44 (Nitrostat Sl) 0.4 mg Q3H PRN SL 11/10/16 09:00 11/10/16 09:54 (Entresto 24-26 Mg) 1 tab BID PO 11/10/16 09:00 Future hold 11/15/16 07:41 (Betapace) 80 mg BID PO 11/10/16 09:00 11/16/16 08:44 (Vitamin B1) 250 mg DAILY PO 11/10/16 09:30 11/16/16 08:43 (Protonix) 40 mg DAILY PO 11/15/16 09:00 11/16/16 08:42 (Deltasone) 10 mg DAILY PO 11/15/16 09:00 11/17/16 08:59 11/16/16 08:44 (Theragran) 1 tab DAILY PO 11/15/16 09:00 11/16/16 08:44 (Folate) 1 mg DAILY PO 11/15/16 09:00 11/16/16 08:43 (Ultram) 50 mg Q6H PRN PO 11/14/16 14:30 11/15/16 14:35 (D50w (Vial) Inj) 50 ml UNSCH PRN IV 11/15/16 17:15 (Glucagon Inj) 1 mg UNSCH PRN OTHER 11/15/16 17:15 (NovoLOG SUPPLEMENTAL SCALE) 1 ACHS SLIDING SCALE SQ 11/15/16 21:00 Vital Signs / I&O Vital Signs Date Time Temp Pulse Resp B/P (MAP) Pulse Ox O2 Delivery O2 Flow Rate FiO2 11/16/16 14:14 77 11/16/16 13:00 85 11/16/16 12:45 78 11/16/16 11:30 98.6 101 18 93/62 (72) 96 11/16/16 11:30 84 11/16/16 10:40 94 11/16/16 09:20 95 11/16/16 09:00 93 11/16/16 08:30 86 11/16/16 08:30 93 Room Air 11/16/16 08:30 98.5 101 18 119/79 (92) 93 11/16/16 06:00 84 11/16/16 05:00 86 11/16/16 04:00 86 11/16/16 04:00 98.4 87 20 116/75 (89) 93 11/16/16 03:00 84 11/16/16 02:00 78 11/16/16 01:00 78 11/16/16 00:00 77 11/15/16 23:00 86 11/15/16 22:33 98.3 80 20 122/76 (91) 94 11/15/16 22:00 76 11/15/16 20:32 96 21 11/15/16 20:00 82 11/15/16 19:00 95 Nasal Cannula 2.00 11/15/16 18:00 79 11/15/16 18:00 79 23 123/62 (82) 93 I/O 11/15/16 11/15/16 11/15/16 11/16/16 11/16/16 11/16/16 07:00 15:00 23:00 07:00 15:00 23:00 Intake Total 314 ml 616 ml 100 ml 406 ml Output Total 625 ml 725 ml 400 ml Balance -311 ml -109 ml 100 ml 6 ml Intake Oral 140 ml 444 ml 240 ml IV Total 174 ml 172 ml 100 ml 166 ml Output Urine Total 625 ml 725 ml 400 ml # Bowel Movements 1 1 Physical Exam GENERAL: NAD, AAOx3 SKIN: Warm and dry. HEAD: Atraumatic. Normocephalic. EYES: Pupils equal and round. No scleral icterus. No injection or drainage. ENT: No nasal bleeding or discharge. Mucous membranes pink and moist. NECK: Trachea midline. No JVD. CARDIOVASCULAR: Regular rate and rhythm. RESPIRATORY: No accessory muscle use. Decreased breath sounds bilaterally GASTROINTESTINAL: Abdomen soft, non-tender, nondistended. Hepatic and splenic margins not palpable. MUSCULOSKELETAL: Extremities without clubbing, cyanosis, or edema. No obvious deformities. NEUROLOGICAL: Awake and alert. No obvious cranial nerve deficits. Motor grossly within normal limits. Five out of 5 muscle strength in the arms and legs. Normal speech. PSYCHIATRIC: Appropriate mood and affect; insight and judgment normal. Laboratory Laboratory Tests Test 11/16/16 04:37 11/16/16 09:44 White Blood Count 8.3 TH/MM3 Red Blood Count 3.39 MIL/MM3 Hemoglobin 10.5 GM/DL Hematocrit 32.9 % Mean Corpuscular Volume 96.9 FL Mean Corpuscular Hemoglobin 31.0 PG Mean Corpuscular Hemoglobin Concent 31.9 % Red Cell Distribution Width 18.4 % Platelet Count 111 TH/MM3 Mean Platelet Volume 9.1 FL Neutrophils (%) (Auto) 74.7 % Lymphocytes (%) (Auto) 10.4 % Monocytes (%) (Auto) 11.3 % Eosinophils (%) (Auto) 3.5 % Basophils (%) (Auto) 0.1 % Neutrophils # (Auto) 6.2 TH/MM3 Lymphocytes # (Auto) 0.9 TH/MM3 Monocytes # (Auto) 0.9 TH/MM3 Eosinophils # (Auto) 0.3 TH/MM3 Basophils # (Auto) 0.0 TH/MM3 CBC Comment DIFF FINAL Differential Comment Blood Urea Nitrogen 23 MG/DL Creatinine 0.68 MG/DL Random Glucose 114 MG/DL Calcium Level 7.9 MG/DL Sodium Level 139 MEQ/L Potassium Level 4.0 MEQ/L Chloride Level 104 MEQ/L Carbon Dioxide Level 27.5 MEQ/L Anion Gap 8 MEQ/L Estimat Glomerular Filtration Rate 117 ML/MIN Activated Partial Thromboplast Time 47.8 SEC Assessment and Plan Problem List: (1) CAD (coronary artery disease) ICD Codes: I25.10 - Atherosclerotic heart disease of [place] coronary artery without angina pectoris Status: Chronic (2) Hx of CABG ICD Codes: Z95.1 - Presence of aortocoronary bypass graft Status: Chronic (3) Acute hyponatremia ICD Codes: E87.1 - Hypo-osmolality and hyponatremia Status: Acute (4) COPD (chronic obstructive pulmonary disease) ICD Codes: J44.9 - Chronic obstructive pulmonary disease, unspecified Status: Chronic (5) Hyperlipidemia ICD Codes: E78.5 - Hyperlipidemia Status: Chronic (6) HCAP (healthcare-associated pneumonia) ICD Codes: J18.9 - Pneumonia, unspecified organism Status: Acute (7) Systolic heart failure, chronic ICD Codes: I50.22 - Chronic systolic (congestive) heart failure Status: Chronic (8) EtOH dependence ICD Codes: F10.20 - Alcohol dependence, uncomplicated Status: Acute (9) COPD with exacerbation ICD Codes: J44.1 - Chronic obstructive pulmonary disease with (acute) exacerbation Status: Acute (10) History of CHF (congestive heart failure) ICD Codes: Z86.79 - History of congestive heart failure Status: Chronic (11) Ischemic cardiomyopathy ICD Codes: I25.5 - Ischemic cardiomyopathy Status: Chronic (12) Diabetes mellitus, type 2 ICD Codes: E11.9 - Type 2 diabetes mellitus without complications Status: Acute (13) Alcoholic cirrhosis ICD Codes: K70.30 - Alcoholic cirrhosis of liver without ascites Status: Chronic (14) Hyponatremia ICD Codes: E87.1 - Hyponatremia Status: Acute (15) Non-sustained ventricular tachycardia ICD Codes: I47.2 - Ventricular tachycardia Status: Acute Assessment and Plan 1) NSTEMI Type 2 in nature, no lesions for intervention DC heparin gtt 2) Acute systolic heart failure Con't diuresis, mildly elevated filling pressures Entresto on hold until tomorrow 3) No further wide complex tachycardia noted Previous appears to be atrial fibrillation 4) Con't ASA/Nitro/Statin/Entresto 5) Hematuria on heparin Most likely traumatic Should be evaluated by urology probably outpatient for workup to make sure no underlying causes (i.e. malignancy) Problem Qualifiers (1) CAD (coronary artery disease): (2) EtOH dependence: (3) Diabetes mellitus, type 2: Hieu Jackson DO Nov 16, 2016 17:04
[2016-11-17] VITALS (26 sets, daily range): BP systolic 89–116; BP diastolic 53–80; PULSE 46–95; RESP 18–20; TEMP 98.3–98.9; O2SAT 93–99
[2016-11-17] MEDS: CEFEPIME INJ 2,000 MG in SODIUM CHLORIDE 0.9% INJ 100 ML IV SCH (03:11)
[2016-11-17] MEDS: RESP: ALBUTEROL 2.5 MG/IPRATROPIUM 0.5 MG NEB (SCH) NEB ×2 (03:51→09:35)
[2016-11-17] MEDS: CHLORHEXIDINE GLUCONATE 2 % 1 PACK (2 CLOTHS) TOP SCH (04:00)
[2016-11-17] MEDS: NITROGLYCERIN 0.4 MG SL 25 TABS/BTL SL PRN (04:12)
[2016-11-17] MEDS: MORPHINE SULFATE 4 MG/ML INJ IV PRN (04:24)
--- NOTE | 2016-11-17 05:16 | MA ---
cc: HIEU LOWERY DO DATE November 16, 2016 PROCEDURE Left heart catheterization, right heart catheterization, coronary angiogram, sedation 60 minutes, aortic root angiography. PREPROCEDURE DIAGNOSES 1. NSTEMI. 2. Ischemic cardiomyopathy with an ejection fraction of 25%. 3. History of coronary artery bypass graft x 3. 4. Acute systolic heart failure. POSTPROCEDURE DIAGNOSES 1. Ischemic cardiomyopathy with an ejection fraction of 25%. 2. Acute systolic heart failure with elevated left ventricular filling pressures. 3. History of coronary artery bypass graft x 3 (1/3 bypass grafts patent). 4. Mild pulmonary hypertension, Type 2. MEDICATIONS 1. Versed 0.5 mg. 2. Fentanyl 25 mcg. CONTRAST 140 cc. FLUOROSCOPY 22.3 minutes MODERATE SEDATION 60 minutes ESTIMATED BLOOD LOSS 10 cc. PROCEDURAL SUMMARY Jose Sutherland is a pleasant 66-year-old male who presented with acute systolic heart failure and was found to have an elevated troponin. Because of this he was recommended cardiac catheterization. The risks, benefits and alternatives were explained to him and he consented as such. He was brought to the lab. The right femoral vein was accessed using a modified Seldinger technique and placement of a 5-Malagasy sheath. The right femoral artery was accessed using a modified Seldinger technique and placement of a 5-Malagasy sheath. Both these were easily aspirated and flushed. A JR-4 was advanced over the J-wire to the ascending aorta and across the aortic valve for measurement of left ventricular pressure. This was pulled back across the aortic valve showing no significant gradient of aortic stenosis. JR-4 was used for selective angiography of the [place] right coronary artery. A JR-4 was attempted to use to find bypass grafts but was unable to. As no SVG to RCA could be found, it was felt that they may have used a JOSE [place] JESUS and so a nonselective shot of the JO[place] JESUS shows it is not connected to the heart. A JR-4 was then exchanged for a JL-4 which was used for selective angiography of the left coronary system. The JL-4 was then exchanged for a multipurpose for which I was unable to find any of the vein grafts. The multipurpose was exchanged for an AL-1 which also was unable to find any of the bypass grafts. A pigtail catheter was then used for an aortic root angiography in an attempt to find any bypass graft but was unable to. A pigtail was then exchanged for a JR-4 which was used for selective angiography of the BETANCOURT to LAD. At this point the JR-4 was removed over a J-wire. The 5-Malagasy venous sheath was exchanged out for a 7-Malagasy sheath and a Hooks-Julee catheter was placed into a wedge position. Right heart pressures as well as saturations were done in a standard method on pullback throughout the heart. The Hooks-Julee catheter was removed. Sheaths were removed in the Quality Control Assessor and pressure was held for hemostasis. The patient left the Quality Control Assessor cardiovascularly stable. FINDINGS LEFT MAIN: A moderate-size vessel with 40% disease distally. It bifurcates into an LAD and circumflex. LAD: Proximally has 70% disease. After the first diagonal there is an 80% lesion in competitive flow seen distally from the BETANCOURT. Before this disease there is one diagonal which is overall a small vessel and has diffuse 70% disease. LEFT CIRCUMFLEX: A small vessel overall with 40% lesion in the midportion. RCA: 100% occluded at the proximal portion. Distal portions of the RCA are filled by collaterals from the left coronary system. BETANCOURT to LAD: Patent with no significant disease. It fills the distal and midportion of the LAD which is overall a small vessel and supplies collaterals to the right coronary system. BYPASS GRAFTS: The patient claims that he had a triple bypass and no other grafts were found to be patent. HEMODYNAMIC RESULTS Right atrium 17. Right ventricle 46/17, RVEDP 20. Pulmonary artery 47/30. Mean pulmonary artery 38. Wedge 24. LVEDP 22. IMPRESSION 1. Coronary artery disease with no intervenable lesions at this time. 2. History of coronary artery bypass graft x 3 per the patient (1/3 bypass grafts patent). 3. Mild pulmonary hypertension Type 2 due to elevated left-sided pressures. 4. Ischemic cardiomyopathy with an ejection fraction of 25%. 5. Acute systolic heart failure. RECOMMENDATIONS 1. Mr. Sutherland's NSTEMI appears to be type 2, most likely due to respiratory distress as well as acute systolic heart failure. We will continue to attempt to treat him medically. 2. We will continue with his diuresis as he does appear to have elevated left side of pressures but overall appears clinically compensated. 3. Previously he was on a heparin drip and this will be stopped. 4. Instructed him to stop using alcohol. 5. As he has had hematuria while on a heparin drip and this was felt to be possibly due to [place] trauma as he yanked on it while in alcohol withdrawal, he should most likely be seen by Urology possibly outpatient for possible cystoscopy to rule out other causes. Thank you for allowing me to see Jose Sutherland. If there are any questions please do not hesitate to call. Hieu Lowery DO VGP/SSB /10:25 PM /4:58 AM
[2016-11-17 06:35] LABS: AUTOMATED NEUTROPHIL # 5.1 TH/MM3 (1.8-7.7); BASOPHIL % 0.4 % (0.0-2.0); EOSINOPHIL # 0.3 TH/MM3 (0-0.4); EOSINOPHIL % 3.5 % (0.0-4.0); HEMATOCRIT 31.8 % (39.0-51.0); HEMO FLAGS DIFF FINAL; LYMPH % 11.7 % (9.0-44.0); LYMPHOCYTE # 0.8 TH/MM3 (1.0-4.8); MEAN CELL VOLUME 96.5 FL (80.0-100.0); MEAN CORPUSCULAR HEMOGLOBIN 30.7 PG (27.0-34.0); MEAN CORPUSCULAR HGB CONC 31.8 % (32.0-36.0); MONO % 13.3 % (0.0-8.0); NEUT % 71.1 % (16.0-70.0); PLATELET COUNT 102 TH/MM3 (150-450); RED BLOOD COUNT 3.29 MIL/MM3 (4.50-5.90); RED CELL DISTRIBUTION WIDTH 18.3 % (11.6-17.2); WHITE BLOOD COUNT 7.2 TH/MM3 (4.0-11.0)
[2016-11-17] MEDS: INSULIN ASPART SUPPLEMENTAL SCALE SQ SCH ×4 (07:00→20:58)
[2016-11-17 07:27] LABS: BICARBONATE 26.6 MEQ/L (21.0-32.0)
[2016-11-17] MEDS: CHLORHEXIDINE 0.12% (ORAL KIT) 15 ML CUP MT SCH ×2 (08:00→20:00)
[2016-11-17] MEDS: FOLIC ACID 1 MG TAB PO SCH (09:16)
[2016-11-17] MEDS: THIAMINE HCL 100 MG TAB PO SCH (09:16)
[2016-11-17] MEDS: MULTIVITAMIN TAB PO SCH (09:16)
[2016-11-17] MEDS: CHOLECALCIFEROL (VIT D3) 1000 UNIT TAB PO SCH (09:17)
[2016-11-17] MEDS: ATORVASTATIN 40 MG TAB PO SCH (09:17)
[2016-11-17] MEDS: PANTOPRAZOLE SOD 40 MG DELAYED RELEASE TAB PO SCH (09:17)
[2016-11-17] MEDS: ASPIRIN 81 MG CHEW TAB CHEW SCH (09:17)
[2016-11-17] MEDS: ISOSORBIDE MONONITRATE 30 MG TAB PO SCH (09:17)
[2016-11-17] MEDS: FUROSEMIDE 20 MG TAB PO SCH (09:18)
[2016-11-17] MEDS: SOTALOL HCL 80 MG TAB PO SCH (09:18)
--- NOTE | 2016-11-17 09:40 | HHI.PR ---
Subjective Remarks resting comfortably with no distress. no sob. afebrile. on and off minimal chest pain. no other complaints and overall doing good. Objective Vitals Vital Signs Date Time Temp Pulse Resp B/P (MAP) Pulse Ox O2 Delivery O2 Flow Rate FiO2 11/17/16 07:00 98.9 77 18 115/80 (92) 94 11/17/16 07:00 94 Room Air 11/17/16 07:00 77 11/17/16 06:00 76 11/17/16 05:00 76 11/17/16 04:00 76 11/17/16 03:00 98.3 79 18 116/76 (89) 95 11/17/16 03:00 76 11/17/16 02:00 78 11/17/16 01:00 76 11/17/16 00:00 46 11/16/16 23:00 74 11/16/16 23:00 98.2 77 20 109/68 (82) 93 11/16/16 22:00 82 11/16/16 21:00 82 11/16/16 20:08 98.1 85 20 114/76 (89) 94 11/16/16 20:05 96 Room Air 11/16/16 20:00 82 11/16/16 19:21 96 21 11/16/16 19:00 82 11/16/16 18:02 82 11/16/16 17:07 98.6 86 18 137/86 (103) 97 11/16/16 17:07 86 11/16/16 14:14 77 11/16/16 13:00 85 11/16/16 12:45 78 11/16/16 11:30 98.6 101 18 93/62 (72) 96 11/16/16 11:30 84 11/16/16 10:40 94 I/O 11/16/16 11/16/16 11/16/16 11/17/16 11/17/16 11/17/16 07:00 15:00 23:00 07:00 15:00 23:00 Intake Total 406 ml 416 ml 340 ml Output Total 400 ml 2200 ml 1150 ml Balance 6 ml -1784 ml -810 ml Intake Oral 240 ml 360 ml 240 ml IV Total 166 ml 56 ml 100 ml Output Urine Total 400 ml 2200 ml 1150 ml # Bowel Movements 1 1 Result Diagram: 11/17/1661911/17/1620 Imaging Last Impressions Chest X-Ray 11/13/16 0600 Signed Impressions: Service Date/Time: Sunday, November 13, 2016 03:36 - CONCLUSION: 1. Cardiomegaly with mild interstitial prominence suggesting some degree of vascular congestion/volume overload. 2. Linear atelectasis/scar in the left base. Ari Kam MD Objective Remarks GENERAL: This is a well-nourished, well-developed patient, in no apparent distress. CARDIOVASCULAR: Regular rate and regular rhythm without murmurs, gallops, or rubs. RESPIRATORY: Clear to auscultation. Breath sounds equal bilaterally. No wheezes , rales, or rhonchi. GASTROINTESTINAL: Abdomen soft, non-tender, nondistended. Normal, active bowel sounds MUSCULOSKELETAL: Extremities without clubbing, cyanosis, or edema. NEURO: Alert & Oriented x4 to person, place, time, situation. Moves all ext x4 Procedures cardiac cath. Medications and IVs Current Medications Sodium Chloride (NS Flush) 2 ml UNSCH PRN IVF FLUSH AFTER USING IV ACCESS Last administered on 11/11/16 20:15; Start 11/10/16 at 06:30 Albuterol/ Ipratropium (Duoneb Neb) 1 ampule Q15M INH Last administered on 11/10 06:36; Start 11/10/16 at 06:30; Stop 11/10/16 at 07:01; Status DC Furosemide (Lasix Inj) 60 mg ONCE ONCE IVP Last administered on 11/10/16 07: 03; Start 11/10/16 at 06:30; Stop 11/10/16 at 06:31; Status DC Nitroglycerin (Nitroglycerin 2% Oint) 1 inch ONCE ONCE TOPICAL Last administered on 11/10/16 06:44; Start 11/10/16 at 06:45; Stop 11/10/16 at 07:53 ; Status DC Ceftriaxone Sodium 2000 mg/ Sodium Chloride 100 ml @ 200 mls/hr ONCE ONCE IV Last administered on 11/10/16 07:34; Start 11/10/16 at 07:15; Stop 11/10/16 at 07:44; Status DC Azithromycin 500 mg/Sodium Chloride 250 ml @ 250 mls/hr ONCE ONCE IV Last administered on 11/10/16 08:10; Start 11/10/16 at 07:15; Stop 11/10/16 at 08:14 ; Status DC Methylprednisolone Sodium Succinate (SoluMEDROL INJ) 125 mg ONCE ONCE IV PUSH Last administered on 11/10/16 07:20; Start 11/10/16 at 07:15; Stop 11/10/16 at 07:16; Status DC Sodium Chloride 250 ml @ As Directed STK-MED ONCE .ROUTE Last administered on 11/10/16 07:46; Start 11/10/16 at 07:46; Stop 11/10/16 at 07:47; Status DC Nitroglycerin/ Dextrose 250 ml @ 0 mls/hr TITRATE IV Last administered on 11:56; Start 11/10/16 at 08:00; Stop 11/12/16 at 13:43; Status DC Cefepime HCl 2000 mg/Sodium Chloride 100 ml @ 200 mls/hr Q8H IV Last administered on 11/17/16 03:11; Start 11/10/16 at 10:00 Azithromycin 500 mg/Sodium Chloride 250 ml @ 250 mls/hr Q24H IV Last administered on 11/14/16 08:33; Start 11/11/16 at 09:00; Stop 11/14/16 at 10:02 ; Status DC Morphine Sulfate (Morphine Inj) 2 mg Q2H PRN IV PAIN SCALE 6 TO 10 Last administered on 11/17/16 04:24; Start 11/10/16 at 09:00 Albuterol/ Ipratropium (Duoneb Neb) 1 ampule Q6HR NEB NEB Last administered on 11/17/16 03:51; Start 11/10/16 at 10:00 Albuterol/ Ipratropium (Duoneb Neb) 1 ampule Q4HR NEB PRN INH SHORTNESS OF BREATH; Start 11/10/16 at 09:00 Chlorhexidine Gluconate (Peridex 0.12% Liq) 15 ml BID@08,20 MT Last administered on 11/15/16 20:00; Start 11/10/16 at 20:00 Pantoprazole Sodium (Protonix Inj) 40 mg DAILY IV Last administered on 08:33; Start 11/10/16 at 09:00; Stop 11/14/16 at 09:38; Status DC Enoxaparin Sodium (Lovenox Inj) 40 mg Q24H SQ Last administered on 11/10/16 10 :23; Start 11/10/16 at 10:00; Stop 11/10/16 at 14:40; Status DC Miscellaneous Information 1 [id number] Last administered on 11/10/16 09:00; Start 11/10/16 at 09:00 Chlorhexidine Gluconate (Chlorhexidine 2% Cloth) Taper DAILY@04 TOP Last administered on 11/15/16 04:00; Start 11/11/16 at 04:00; Stop 11/07/17 at 03:59 Chlorhexidine Gluconate (Chlorhexidine 2% Cloth) 3 pack UNSCH PRN TOP HYGIENIC CARE; Start 11/10/16 at 09:00 Aspirin (Aspirin Chew) 81 mg DAILY CHEW Last administered on 11/17/16 09:17; Start 11/10/16 at 09:00 Atorvastatin Calcium (Lipitor) 40 mg DAILY PO Last administered on 11/17/16 09 :17; Start 11/10/16 at 09:00 Cholecalciferol (Vitamin D3) 1,000 units DAILY PO Last administered on 09:17; Start 11/10/16 at 09:00 Furosemide (Lasix) 20 mg DAILY PO Last administered on 11/17/16 09:18; Start 11/11/16 at 09:00; Status Future hold Isosorbide Mononitrate (Imdur) 30 mg DAILY PO Last administered on 11/17/16 09 :17; Start 11/10/16 at 09:30 Nitroglycerin (Nitrostat Sl) 0.4 mg Q3H PRN SL chest pain Last administered on 11/17/16 04:12; Start 11/10/16 at 09:00 Sacubitril/ Valsartan (Entresto 24-26 Mg) 1 tab BID PO Last administered on 07:41; Start 11/10/16 at 09:00; Status Future hold Sotalol HCl (Betapace) 80 mg BID PO Last administered on 11/17/16 09:18; Start 11/10/16 at 09:00 Thiamine HCl (Vitamin B1) 250 mg DAILY PO Last administered on 11/17/16 09:16 ; Start 11/10/16 at 09:30 Insulin Aspart (NovoLOG SUPPLEMENTAL SCALE) 1 Q4HR SQ Last administered on 11/15 16:05; Start 11/10/16 at 12:00; Stop 11/15/16 at 17:09; Status DC Dextrose (D50w (Vial) Inj) 50 ml UNSCH PRN IV PUSH HYPOGLYCEMIA - SEE COMMENTS ; Start 11/10/16 at 09:45; Stop 11/16/16 at 16:25; Status DC Glucagon (Glucagon Inj) 1 mg UNSCH PRN OTHER HYPOGLYCEMIA-SEE COMMENTS; Start 11/10/16 at 09:45; Stop 11/16/16 at 16:25; Status DC Sodium Chloride 1,000 ml @ 50 mls/hr Q20H IV Last administered on 11/11/16 09 :12; Start 11/10/16 at 14:00; Stop 11/11/16 at 13:59; Status DC Methylprednisolone Sodium Succinate (SoluMEDROL INJ) 60 mg Q12H IV PUSH Last administered on 11/13/16 05:04; Start 11/10/16 at 18:00; Stop 11/13/16 at 11:35 ; Status DC Heparin Sodium/ Dextrose 250 ml @ 0 mls/hr TITRATE IV Last administered on 11/15 18:20; Start 11/10/16 at 13:30; Stop 11/16/16 at 16:45; Status DC Multivitamins 10 ml/Thiamine HCl 100 mg/Folic Acid 1 mg/Sodium Chloride 511.2 ml @ 125 mls/hr ONCE ONCE IV ; Start 11/10/16 at 16:00; Stop 11/10/16 at 16:00 ; Status DC Morphine Sulfate (Morphine Inj) 2 mg Q3H PRN IV PUSH pain 5-10; Start 11/10/16 at 13:45; Stop 11/10/16 at 14:40; Status DC Multivitamins 10 ml/Thiamine HCl 100 mg/Folic Acid 1 mg/Sodium Chloride 511.2 ml @ 125 mls/hr Q24H IV Last administered on 11/13/16 15:42; Start 11/10/16 at 16:00; Stop 11/14/16 at 10:10; Status DC Sodium Chloride 1,000 ml @ 50 mls/hr Q20H IV Last administered on 11/12/16 11 :41; Start 11/11/16 at 16:15; Stop 11/12/16 at 22:59; Status DC Flumazenil (Romazicon Inj) 0.2 mg Q1M PRN IV PUSH SEE LABEL COMMENTS; Start at 16:15; Stop 11/15/16 at 17:04; Status DC Lorazepam (Ativan) 1 mg Q4H PRN PO CIWA 8 - 10 Last administered on 11/11/16 17:45; Start 11/11/16 at 16:15; Stop 11/15/16 at 17:04; Status DC Lorazepam (Ativan Inj) 1 mg Q4H PRN IV PUSH CIWA 8 - 10 Last administered on 02:13; Start 11/11/16 at 16:15; Stop 11/15/16 at 17:04; Status DC Lorazepam (Ativan) 2 mg Q2H PRN PO CIWA 11-14; Start 11/11/16 at 16:15; Stop at 17:04; Status DC Lorazepam (Ativan Inj) 2 mg Q2H PRN IV PUSH CIWA 11-14 Last administered on 17:08; Start 11/11/16 at 16:15; Stop 11/15/16 at 17:04; Status DC Lorazepam (Ativan Inj) 2 mg Q1H PRN IV PUSH CIWA 15-20 Last administered on 02:14; Start 11/11/16 at 16:15; Stop 11/15/16 at 17:04; Status DC Lorazepam (Ativan Inj) 2 mg Q15M PRN IV PUSH CIWA > 20 Last administered on 21:15; Start 11/11/16 at 16:15; Stop 11/15/16 at 17:04; Status DC Dexmedetomidine HCl 200 mcg/ Sodium Chloride 52 ml @ 0 mls/hr TITRATE IV Last administered on 11/12/16 21:29; Start 11/11/16 at 22:15; Stop 11/12/16 at 23:00 ; Status DC Lorazepam (Ativan Inj) 2 mg Q1HR IV PUSH Last administered on 11/12/16 08:06; Start 11/11/16 at 23:00; Stop 11/12/16 at 07:00; Status DC Metoprolol Tartrate (Lopressor Inj) 5 mg ONCE ONCE IV PUSH ; Start 11/12/16 at 12:45; Stop 11/12/16 at 14:26; Status DC Nitroglycerin/ Dextrose 250 ml @ 0 mls/hr TITRATE IV ; Start 11/12/16 at 12:45; Stop 11/12/16 at 14:26; Status DC Dexmedetomidine HCl 1000 mcg/ Sodium Chloride 250 ml @ 0 mls/hr TITRATE IV Last administered on 11/13/16 05:03; Start 11/12/16 at 23:00; Stop 11/13/16 at 11:35; Status DC Methylprednisolone Sodium Succinate (SoluMEDROL INJ) 40 mg Q12H IV PUSH Last administered on 11/14/16 04:43; Start 11/13/16 at 18:00; Stop 11/14/16 at 09:54 ; Status DC Pantoprazole Sodium (Protonix) 40 mg DAILY PO Last administered on 11/17/16 09 :17; Start 11/15/16 at 09:00 Prednisone (Deltasone) 10 mg DAILY PO Last administered on 11/16/16 08:44; Start 11/15/16 at 09:00; Stop 11/17/16 at 08:59; Status DC Multivitamins (Theragran) 1 tab DAILY PO Last administered on 11/17/16 09:16; Start 11/15/16 at 09:00 Folic Acid (Folate) 1 mg DAILY PO Last administered on 11/17/16 09:16; Start 11/15/16 at 09:00 Tramadol HCl (Ultram) 50 mg Q6H PRN PO PAIN Last administered on 11/15/16 14: 35; Start 11/14/16 at 14:30 Dextrose (D50w (Vial) Inj) 50 ml UNSCH PRN IV HYPOGLYCEMIA-SEE COMMENTS; Start 11/15/16 at 17:15 Glucagon (Glucagon Inj) 1 mg UNSCH PRN OTHER HYPOGLYCEMIA-SEE COMMENTS; Start 11/15/16 at 17:15 Insulin Aspart (NovoLOG SUPPLEMENTAL SCALE) 1 ACHS SLIDING SCALE SQ Last administered on 11/16/16 21:00; Start 11/15/16 at 21:00 Heparin Sodium/ Sodium Chloride 1,000 ml @ As Directed STK-MED ONCE .ROUTE ; Start 11/16/16 at 14:15; Stop 11/16/16 at 14:16; Status DC Midazolam HCl (Versed Inj) 2 mg STK-MED ONCE .ROUTE Last administered on 15:09; Start 11/16/16 at 14:16; Stop 11/16/16 at 14:17; Status DC Fentanyl Citrate (fentaNYL INJ) 100 mcg STK-MED ONCE .ROUTE Last administered on 11/16/16 15:10; Start 11/16/16 at 14:16; Stop 11/16/16 at 14:17; Status DC Verapamil HCl (Isoptin Inj) 5 mg STK-MED ONCE .ROUTE ; Start 11/16/16 at 14:48; Stop 11/16/16 at 14:49; Status DC Nitroglycerin 0 ml @ As Directed STK-MED ONCE .ROUTE ; Start 11/16/16 at 14:49; Stop 11/16/16 at 14:50; Status DC Heparin Sodium (Porcine) (Heparin Inj) 10,000 units STK-MED ONCE .ROUTE ; Start 11/16/16 at 14:49; Stop 11/16/16 at 14:50; Status DC Insulin Detemir (Levemir Inj) 10 units ONCE ONCE SQ ; Start 11/16/16 at 16:30; Stop 11/16/16 at 16:30; Status DC Miscellaneous Information 1 ONCE ONCE XX Last administered on 11/16/16 16:45 ; Start 11/16/16 at 16:45; Stop 11/16/16 at 16:46; Status DC A/P Assessment and Plan A/P 1. Alcohol withdrawal syndrome/alcohol dependence. [facility] protocol, 2. Acute Hypoxemic respiratory failure/right Lower lobe pneumonia/COPD exacerbation, continue Bronchodilator, Mucolytic, Incentive spirometry, Steroids. treated with IV Cefepime. 3. ACS/NSTEMI/ Probable CHF, ischemic Cardiomyopathy EF 25%, Ventricular tachycardia status post AICD Biventricular pacer,stop IV Heparin, continue Sotalool, Lipitor , Imdur. s/p cardiac cath with : 1. Coronary artery disease with no intervenable lesions at this time. 2. History of coronary artery bypass graft x 3 per the patient (1/3 bypass grafts patent). 3. Mild pulmonary hypertension Type 2 due to elevated left-sided pressures. 4. Ischemic cardiomyopathy with an ejection fraction of 25%. 4. Cirrhosis, Heart healthy diet and PPIs 5. Hematuria after [place] Trauma- f/u urology as outpatient. PROPH: - Bilateral lower extremity SCDs. Discharge Planning when cleared by cardiology. Zora Eden MD Nov 17, 2016 09:40
--- NOTE | 2016-11-17 19:01 | PD.CARD.PN ---
Subjective Subjective Remarks Patient seen this morning No events overnight No chest pain/SOB No longer with hematuria Objective Medications Current Medications Medications (Trade) Dose Ordered Sig/Yakelin Route Start Time Stop Time Status Last Admin (NS Flush) 2 ml UNSCH PRN IVF 11/10/16 06:30 11/11/16 20:15 (Morphine Inj) 2 mg Q2H PRN IV 11/10/16 09:00 11/17/16 04:24 (Duoneb Neb) 1 ampule Q4HR NEB PRN INH 11/10/16 09:00 (Peridex 0.12% Liq) 15 ml BID@08,20 MT 11/10/16 20:00 11/15/16 20:00 Miscellaneous Information 1 Q361D XX 11/10/16 09:00 11/10/16 09:00 (Chlorhexidine 2% Cloth) Taper DAILY@04 TOP 11/11/16 04:00 11/07/17 03:59 11/15/16 04:00 (Chlorhexidine 2% Cloth) 3 pack UNSCH PRN TOP 11/10/16 09:00 (Aspirin Chew) 81 mg DAILY CHEW 11/10/16 09:00 11/17/16 09:17 (Lipitor) 40 mg DAILY PO 11/10/16 09:00 11/17/16 09:17 (Vitamin D3) 1,000 units DAILY PO 11/10/16 09:00 11/17/16 09:17 (Lasix) 20 mg DAILY PO 11/11/16 09:00 Future hold 11/17/16 09:18 (Imdur) 30 mg DAILY PO 11/10/16 09:30 11/17/16 09:17 (Nitrostat Sl) 0.4 mg Q3H PRN SL 11/10/16 09:00 11/17/16 04:12 (Entresto 24-26 Mg) 1 tab BID PO 11/10/16 09:00 Future hold 11/15/16 07:41 (Betapace) 80 mg BID PO 11/10/16 09:00 11/17/16 09:18 (Vitamin B1) 250 mg DAILY PO 11/10/16 09:30 11/17/16 09:16 (Protonix) 40 mg DAILY PO 11/15/16 09:00 11/17/16 09:17 (Theragran) 1 tab DAILY PO 11/15/16 09:00 11/17/16 09:16 (Folate) 1 mg DAILY PO 11/15/16 09:00 11/17/16 09:16 (Ultram) 50 mg Q6H PRN PO 11/14/16 14:30 11/15/16 14:35 (D50w (Vial) Inj) 50 ml UNSCH PRN IV 11/15/16 17:15 (Glucagon Inj) 1 mg UNSCH PRN OTHER 11/15/16 17:15 (NovoLOG SUPPLEMENTAL SCALE) 1 ACHS SLIDING SCALE SQ 11/15/16 21:00 11/17/16 16:00 Vital Signs / I&O Vital Signs Date Time Temp Pulse Resp B/P (MAP) Pulse Ox O2 Delivery O2 Flow Rate FiO2 11/17/16 18:00 84 11/17/16 17:01 75 11/17/16 16:00 81 11/17/16 15:00 98.7 83 20 89/53 (65) 96 11/17/16 14:06 93 11/17/16 13:00 78 11/17/16 12:05 60 11/17/16 11:00 77 11/17/16 11:00 98.9 77 18 104/69 (81) 95 11/17/16 10:00 87 11/17/16 09:43 99 21 11/17/16 09:00 78 11/17/16 08:00 78 11/17/16 07:00 98.9 77 18 115/80 (92) 94 11/17/16 07:00 94 Room Air 11/17/16 07:00 77 11/17/16 06:00 76 11/17/16 05:00 76 11/17/16 04:00 76 11/17/16 03:00 98.3 79 18 116/76 (89) 95 11/17/16 03:00 76 11/17/16 02:00 78 11/17/16 01:00 76 11/17/16 00:00 46 11/16/16 23:00 74 11/16/16 23:00 98.2 77 20 109/68 (82) 93 11/16/16 22:00 82 11/16/16 21:00 82 11/16/16 20:08 98.1 85 20 114/76 (89) 94 11/16/16 20:05 96 Room Air 11/16/16 20:00 82 11/16/16 19:21 96 21 11/16/16 19:00 82 I/O 11/16/16 11/16/16 11/16/16 11/17/16 11/17/16 11/17/16 06:59 14:59 22:59 06:59 14:59 22:59 Intake Total 406 ml 416 ml 340 ml Output Total 400 ml 2200 ml 1150 ml 2400 ml Balance 6 ml -1784 ml -810 ml -2400 ml Intake Oral 240 ml 360 ml 240 ml IV Total 166 ml 56 ml 100 ml Output Urine Total 400 ml 2200 ml 1150 ml 2400 ml # Bowel Movements 1 1 1 Physical Exam GENERAL: NAD, AAOx3 SKIN: Warm and dry. HEAD: Atraumatic. Normocephalic. EYES: Pupils equal and round. No scleral icterus. No injection or drainage. ENT: No nasal bleeding or discharge. Mucous membranes pink and moist. NECK: Trachea midline. No JVD. CARDIOVASCULAR: Regular rate and rhythm. RESPIRATORY: No accessory muscle use. Decreased breath sounds bilaterally GASTROINTESTINAL: Abdomen soft, non-tender, nondistended. Hepatic and splenic margins not palpable. MUSCULOSKELETAL: Extremities without clubbing, cyanosis, or edema. No obvious deformities. Right femoral no hematoma/bruit, neurovascularly intact distally NEUROLOGICAL: Awake and alert. No obvious cranial nerve deficits. Motor grossly within normal limits. Five out of 5 muscle strength in the arms and legs. Normal speech. PSYCHIATRIC: Appropriate mood and affect; insight and judgment normal. Laboratory Laboratory Tests Test 11/17/16 06:20 White Blood Count 7.2 TH/MM3 Red Blood Count 3.29 MIL/MM3 Hemoglobin 10.1 GM/DL Hematocrit 31.8 % Mean Corpuscular Volume 96.5 FL Mean Corpuscular Hemoglobin 30.7 PG Mean Corpuscular Hemoglobin Concent 31.8 % Red Cell Distribution Width 18.3 % Platelet Count 102 TH/MM3 Mean Platelet Volume 8.9 FL Neutrophils (%) (Auto) 71.1 % Lymphocytes (%) (Auto) 11.7 % Monocytes (%) (Auto) 13.3 % Eosinophils (%) (Auto) 3.5 % Basophils (%) (Auto) 0.4 % Neutrophils # (Auto) 5.1 TH/MM3 Lymphocytes # (Auto) 0.8 TH/MM3 Monocytes # (Auto) 1.0 TH/MM3 Eosinophils # (Auto) 0.3 TH/MM3 Basophils # (Auto) 0.0 TH/MM3 CBC Comment DIFF FINAL Differential Comment Blood Urea Nitrogen 18 MG/DL Creatinine 0.69 MG/DL Random Glucose 125 MG/DL Calcium Level 8.4 MG/DL Sodium Level 136 MEQ/L Potassium Level 4.0 MEQ/L Chloride Level 102 MEQ/L Carbon Dioxide Level 26.6 MEQ/L Anion Gap 7 MEQ/L Estimat Glomerular Filtration Rate 115 ML/MIN Assessment and Plan Problem List: (1) CAD (coronary artery disease) ICD Codes: I25.10 - Atherosclerotic heart disease of [place] coronary artery without angina pectoris Status: Chronic (2) Hx of CABG ICD Codes: Z95.1 - Presence of aortocoronary bypass graft Status: Chronic (3) Acute hyponatremia ICD Codes: E87.1 - Hypo-osmolality and hyponatremia Status: Acute (4) COPD (chronic obstructive pulmonary disease) ICD Codes: J44.9 - Chronic obstructive pulmonary disease, unspecified Status: Chronic (5) Hyperlipidemia ICD Codes: E78.5 - Hyperlipidemia Status: Chronic (6) HCAP (healthcare-associated pneumonia) ICD Codes: J18.9 - Pneumonia, unspecified organism Status: Acute (7) Systolic heart failure, chronic ICD Codes: I50.22 - Chronic systolic (congestive) heart failure Status: Chronic (8) EtOH dependence ICD Codes: F10.20 - Alcohol dependence, uncomplicated Status: Acute (9) COPD with exacerbation ICD Codes: J44.1 - Chronic obstructive pulmonary disease with (acute) exacerbation Status: Acute (10) History of CHF (congestive heart failure) ICD Codes: Z86.79 - History of congestive heart failure Status: Chronic (11) Ischemic cardiomyopathy ICD Codes: I25.5 - Ischemic cardiomyopathy Status: Chronic (12) Diabetes mellitus, type 2 ICD Codes: E11.9 - Type 2 diabetes mellitus without complications Status: Acute (13) Alcoholic cirrhosis ICD Codes: K70.30 - Alcoholic cirrhosis of liver without ascites Status: Chronic (14) Hyponatremia ICD Codes: E87.1 - Hyponatremia Status: Acute (15) Non-sustained ventricular tachycardia ICD Codes: I47.2 - Ventricular tachycardia Status: Acute Assessment and Plan 1) NSTEMI Type 2 in nature, no lesions for intervention DC heparin gtt 2) Acute systolic heart failure Con't Lasix PO daily Entresto with hold parameters, will see BP tomorrow 3) No further wide complex tachycardia noted Previous appears to be atrial fibrillation 4) Con't ASA/Nitro/Statin/Entresto 5) Hematuria on heparin Cleared once off heparin drip Most likely traumatic Should be evaluated by urology probably outpatient for workup to make sure no underlying causes (i.e. malignancy) Problem Qualifiers (1) CAD (coronary artery disease): (2) EtOH dependence: (3) Diabetes mellitus, type 2: Hieu Jackson DO Nov 17, 2016 19:01
[2016-11-17] MEDS: SACUBITRIL/VALSARTAN 24 MG-26 MG TAB PO SCH (20:50)
[2016-11-18] VITALS (16 sets, daily range): BP systolic 12–132; BP diastolic 73–83; PULSE 64–92; RESP 19–20; TEMP 98.6–99.3; O2SAT 96–97
[2016-11-18] MEDS: SOTALOL HCL 80 MG TAB PO SCH ×2 (00:33→09:44)
[2016-11-18] MEDS: CHLORHEXIDINE GLUCONATE 2 % 1 PACK (2 CLOTHS) TOP SCH (04:00)
[2016-11-18] MEDS: INSULIN ASPART SUPPLEMENTAL SCALE SQ SCH ×2 (07:00→11:00)
[2016-11-18] MEDS: CHLORHEXIDINE 0.12% (ORAL KIT) 15 ML CUP MT SCH (08:00)
--- NOTE | 2016-11-18 08:04 | HHI.PR ---
Subjective Remarks resting comfortably with no distress. no chest pain or sob. hematuria has resolved. no new complaints and hoping that he would be able to go home today. d/w the RN. Objective Vitals Vital Signs Date Time Temp Pulse Resp B/P (MAP) Pulse Ox O2 Delivery O2 Flow Rate FiO2 11/18/16 05:01 79 11/18/16 04:09 81 11/18/16 03:39 98.6 79 20 128/73 (91) 96 11/18/16 03:00 97 Room Air 11/18/16 03:00 75 11/18/16 02:00 64 11/18/16 01:00 74 11/18/16 00:30 98.6 88 20 130/81 (97) 97 11/18/16 00:00 77 11/17/16 23:00 81 11/17/16 22:00 63 11/17/16 21:00 72 11/17/16 20:00 93 Room Air 11/17/16 20:00 95 11/17/16 19:46 98.9 75 20 100/64 (76) 93 11/17/16 19:00 75 11/17/16 18:00 84 11/17/16 17:01 75 11/17/16 16:00 81 11/17/16 15:00 98.7 83 20 89/53 (65) 96 11/17/16 14:06 93 11/17/16 13:00 78 11/17/16 12:05 60 11/17/16 11:00 77 11/17/16 11:00 98.9 77 18 104/69 (81) 95 11/17/16 10:00 87 11/17/16 09:43 99 21 11/17/16 09:00 78 I/O 11/17/16 11/17/16 11/17/16 11/18/16 11/18/16 11/18/16 07:00 15:00 23:00 07:00 15:00 23:00 Intake Total 340 ml 240 ml Output Total 1150 ml 2400 ml 1775 ml Balance -810 ml -2400 ml -1535 ml Intake Oral 240 ml 240 ml IV Total 100 ml Output Urine Total 1150 ml 2400 ml 1775 ml # Bowel Movements 1 1 Result Diagram: 11/17/1661911/17/16 0620 Imaging Last Impressions Chest X-Ray 11/13/16 0600 Signed Impressions: Service Date/Time: Sunday, November 13, 2016 03:36 - CONCLUSION: 1. Cardiomegaly with mild interstitial prominence suggesting some degree of vascular congestion/volume overload. 2. Linear atelectasis/scar in the left base. Ari Kam MD Objective Remarks GENERAL: This is a well-nourished, well-developed patient, in no apparent distress. CARDIOVASCULAR: Regular rate and regular rhythm without murmurs, gallops, or rubs. RESPIRATORY: Clear to auscultation. Breath sounds equal bilaterally. No wheezes , rales, or rhonchi. GASTROINTESTINAL: Abdomen soft, non-tender, nondistended. Normal, active bowel sounds MUSCULOSKELETAL: Extremities without clubbing, cyanosis, or edema. NEURO: Alert & Oriented x4 to person, place, time, situation. Moves all ext x4 Procedures cardiac cath. Medications and IVs Current Medications Sodium Chloride (NS Flush) 2 ml UNSCH PRN IVF FLUSH AFTER USING IV ACCESS Last administered on 11/11/16 20:15; Start 11/10/16 at 06:30 Albuterol/ Ipratropium (Duoneb Neb) 1 ampule Q15M INH Last administered on 11/10 06:36; Start 11/10/16 at 06:30; Stop 11/10/16 at 07:01; Status DC Furosemide (Lasix Inj) 60 mg ONCE ONCE IVP Last administered on 11/10/16 07: 03; Start 11/10/16 at 06:30; Stop 11/10/16 at 06:31; Status DC Nitroglycerin (Nitroglycerin 2% Oint) 1 inch ONCE ONCE TOPICAL Last administered on 11/10/16 06:44; Start 11/10/16 at 06:45; Stop 11/10/16 at 07:53 ; Status DC Ceftriaxone Sodium 2000 mg/ Sodium Chloride 100 ml @ 200 mls/hr ONCE ONCE IV Last administered on 11/10/16 07:34; Start 11/10/16 at 07:15; Stop 11/10/16 at 07:44; Status DC Azithromycin 500 mg/Sodium Chloride 250 ml @ 250 mls/hr ONCE ONCE IV Last administered on 11/10/16 08:10; Start 11/10/16 at 07:15; Stop 11/10/16 at 08:14 ; Status DC Methylprednisolone Sodium Succinate (SoluMEDROL INJ) 125 mg ONCE ONCE IV PUSH Last administered on 11/10/16 07:20; Start 11/10/16 at 07:15; Stop 11/10/16 at 07:16; Status DC Sodium Chloride 250 ml @ As Directed STK-MED ONCE .ROUTE Last administered on 11/10/16 07:46; Start 11/10/16 at 07:46; Stop 11/10/16 at 07:47; Status DC Nitroglycerin/ Dextrose 250 ml @ 0 mls/hr TITRATE IV Last administered on 11:56; Start 11/10/16 at 08:00; Stop 11/12/16 at 13:43; Status DC Cefepime HCl 2000 mg/Sodium Chloride 100 ml @ 200 mls/hr Q8H IV Last administered on 11/17/16 03:11; Start 11/10/16 at 10:00; Stop 11/17/16 at 09:42 ; Status DC Azithromycin 500 mg/Sodium Chloride 250 ml @ 250 mls/hr Q24H IV Last administered on 11/14/16 08:33; Start 11/11/16 at 09:00; Stop 11/14/16 at 10:02 ; Status DC Morphine Sulfate (Morphine Inj) 2 mg Q2H PRN IV PAIN SCALE 6 TO 10 Last administered on 11/17/16 04:24; Start 11/10/16 at 09:00 Albuterol/ Ipratropium (Duoneb Neb) 1 ampule Q6HR NEB NEB Last administered on 11/17/16 09:35; Start 11/10/16 at 10:00; Stop 11/17/16 at 11:33; Status DC Albuterol/ Ipratropium (Duoneb Neb) 1 ampule Q4HR NEB PRN INH SHORTNESS OF BREATH; Start 11/10/16 at 09:00 Chlorhexidine Gluconate (Peridex 0.12% Liq) 15 ml BID@08,20 MT Last administered on 11/15/16 20:00; Start 11/10/16 at 20:00 Pantoprazole Sodium (Protonix Inj) 40 mg DAILY IV Last administered on 08:33; Start 11/10/16 at 09:00; Stop 11/14/16 at 09:38; Status DC Enoxaparin Sodium (Lovenox Inj) 40 mg Q24H SQ Last administered on 11/10/16 10 :23; Start 11/10/16 at 10:00; Stop 11/10/16 at 14:40; Status DC Miscellaneous Information 1 Q361D XX Last administered on 11/10/16 09:00; Start 11/10/16 at 09:00 Chlorhexidine Gluconate (Chlorhexidine 2% Cloth) Taper DAILY@04 TOP Last administered on 11/15/16 04:00; Start 11/11/16 at 04:00; Stop 11/07/17 at 03:59 Chlorhexidine Gluconate (Chlorhexidine 2% Cloth) 3 pack UNSCH PRN TOP HYGIENIC CARE; Start 11/10/16 at 09:00 Aspirin (Aspirin Chew) 81 mg DAILY CHEW Last administered on 11/17/16 09:17; Start 11/10/16 at 09:00 Atorvastatin Calcium (Lipitor) 40 mg DAILY PO Last administered on 11/17/16 09 :17; Start 11/10/16 at 09:00 Cholecalciferol (Vitamin D3) 1,000 units DAILY PO Last administered on 09:17; Start 11/10/16 at 09:00 Furosemide (Lasix) 20 mg DAILY PO Last administered on 11/17/16 09:18; Start 11/11/16 at 09:00; Status Future hold Isosorbide Mononitrate (Imdur) 30 mg DAILY PO Last administered on 11/17/16 09 :17; Start 11/10/16 at 09:30 Nitroglycerin (Nitrostat Sl) 0.4 mg Q3H PRN SL chest pain Last administered on 11/17/16 04:12; Start 11/10/16 at 09:00 Sacubitril/ Valsartan (Entresto 24-26 Mg) 1 tab BID PO Last administered on 07:41; Start 11/10/16 at 09:00; Status Future hold Sotalol HCl (Betapace) 80 mg BID PO Last administered on 11/18/16 00:33; Start 11/10/16 at 09:00 Thiamine HCl (Vitamin B1) 250 mg DAILY PO Last administered on 11/17/16 09:16 ; Start 11/10/16 at 09:30 Insulin Aspart (NovoLOG SUPPLEMENTAL SCALE) 1 Q4HR SQ Last administered on 11/15 16:05; Start 11/10/16 at 12:00; Stop 11/15/16 at 17:09; Status DC Dextrose (D50w (Vial) Inj) 50 ml UNSCH PRN IV PUSH HYPOGLYCEMIA - SEE COMMENTS ; Start 11/10/16 at 09:45; Stop 11/16/16 at 16:25; Status DC Glucagon (Glucagon Inj) 1 mg UNSCH PRN OTHER HYPOGLYCEMIA-SEE COMMENTS; Start 11/10/16 at 09:45; Stop 11/16/16 at 16:25; Status DC Sodium Chloride 1,000 ml @ 50 mls/hr Q20H IV Last administered on 11/11/16 09 :12; Start 11/10/16 at 14:00; Stop 11/11/16 at 13:59; Status DC Methylprednisolone Sodium Succinate (SoluMEDROL INJ) 60 mg Q12H IV PUSH Last administered on 11/13/16 05:04; Start 11/10/16 at 18:00; Stop 11/13/16 at 11:35 ; Status DC Heparin Sodium/ Dextrose 250 ml @ 0 mls/hr TITRATE IV Last administered on 11/15 18:20; Start 11/10/16 at 13:30; Stop 11/16/16 at 16:45; Status DC Multivitamins 10 ml/Thiamine HCl 100 mg/Folic Acid 1 mg/Sodium Chloride 511.2 ml @ 125 mls/hr ONCE ONCE IV ; Start 11/10/16 at 16:00; Stop 11/10/16 at 16:00 ; Status DC Morphine Sulfate (Morphine Inj) 2 mg Q3H PRN IV PUSH pain 5-10; Start 11/10/16 at 13:45; Stop 11/10/16 at 14:40; Status DC Multivitamins 10 ml/Thiamine HCl 100 mg/Folic Acid 1 mg/Sodium Chloride 511.2 ml @ 125 mls/hr Q24H IV Last administered on 11/13/16 15:42; Start 11/10/16 at 16:00; Stop 11/14/16 at 10:10; Status DC Sodium Chloride 1,000 ml @ 50 mls/hr Q20H IV Last administered on 11/12/16 11 :41; Start 11/11/16 at 16:15; Stop 11/12/16 at 22:59; Status DC Flumazenil (Romazicon Inj) 0.2 mg Q1M PRN IV PUSH SEE LABEL COMMENTS; Start at 16:15; Stop 11/15/16 at 17:04; Status DC Lorazepam (Ativan) 1 mg Q4H PRN PO CIWA 8 - 10 Last administered on 11/11/16 17:45; Start 11/11/16 at 16:15; Stop 11/15/16 at 17:04; Status DC Lorazepam (Ativan Inj) 1 mg Q4H PRN IV PUSH CIWA 8 - 10 Last administered on 02:13; Start 11/11/16 at 16:15; Stop 11/15/16 at 17:04; Status DC Lorazepam (Ativan) 2 mg Q2H PRN PO CIWA 11-14; Start 11/11/16 at 16:15; Stop at 17:04; Status DC Lorazepam (Ativan Inj) 2 mg Q2H PRN IV PUSH CIWA 11-14 Last administered on 17:08; Start 11/11/16 at 16:15; Stop 11/15/16 at 17:04; Status DC Lorazepam (Ativan Inj) 2 mg Q1H PRN IV PUSH CIWA 15-20 Last administered on 02:14; Start 11/11/16 at 16:15; Stop 11/15/16 at 17:04; Status DC Lorazepam (Ativan Inj) 2 mg Q15M PRN IV PUSH CIWA > 20 Last administered on 21:15; Start 11/11/16 at 16:15; Stop 11/15/16 at 17:04; Status DC Dexmedetomidine HCl 200 mcg/ Sodium Chloride 52 ml @ 0 mls/hr TITRATE IV Last administered on 11/12/16 21:29; Start 11/11/16 at 22:15; Stop 11/12/16 at 23:00 ; Status DC Lorazepam (Ativan Inj) 2 mg Q1HR IV PUSH Last administered on 11/12/16 08:06; Start 11/11/16 at 23:00; Stop 11/12/16 at 07:00; Status DC Metoprolol Tartrate (Lopressor Inj) 5 mg ONCE ONCE IV PUSH ; Start 11/12/16 at 12:45; Stop 11/12/16 at 14:26; Status DC Nitroglycerin/ Dextrose 250 ml @ 0 mls/hr TITRATE IV ; Start 11/12/16 at 12:45; Stop 11/12/16 at 14:26; Status DC Dexmedetomidine HCl 1000 mcg/ Sodium Chloride 250 ml @ 0 mls/hr TITRATE IV Last administered on 11/13/16 05:03; Start 11/12/16 at 23:00; Stop 11/13/16 at 11:35; Status DC Methylprednisolone Sodium Succinate (SoluMEDROL INJ) 40 mg Q12H IV PUSH Last administered on 11/14/16 04:43; Start 11/13/16 at 18:00; Stop 11/14/16 at 09:54 ; Status DC Pantoprazole Sodium (Protonix) 40 mg DAILY PO Last administered on 11/17/16 09 :17; Start 11/15/16 at 09:00 Prednisone (Deltasone) 10 mg DAILY PO Last administered on 11/16/16 08:44; Start 11/15/16 at 09:00; Stop 11/17/16 at 08:59; Status DC Multivitamins (Theragran) 1 tab DAILY PO Last administered on 11/17/16 09:16; Start 11/15/16 at 09:00 Folic Acid (Folate) 1 mg DAILY PO Last administered on 11/17/16 09:16; Start 11/15/16 at 09:00 Tramadol HCl (Ultram) 50 mg Q6H PRN PO PAIN Last administered on 11/15/16 14: 35; Start 11/14/16 at 14:30 Dextrose (D50w (Vial) Inj) 50 ml UNSCH PRN IV HYPOGLYCEMIA-SEE COMMENTS; Start 11/15/16 at 17:15 Glucagon (Glucagon Inj) 1 mg UNSCH PRN OTHER HYPOGLYCEMIA-SEE COMMENTS; Start 11/15/16 at 17:15 Insulin Aspart (NovoLOG SUPPLEMENTAL SCALE) 1 ACHS SLIDING SCALE SQ Last administered on 11/17/16 20:58; Start 11/15/16 at 21:00 Heparin Sodium/ Sodium Chloride 1,000 ml @ As Directed STK-MED ONCE .ROUTE ; Start 11/16/16 at 14:15; Stop 11/16/16 at 14:16; Status DC Midazolam HCl (Versed Inj) 2 mg STK-MED ONCE .ROUTE Last administered on 15:09; Start 11/16/16 at 14:16; Stop 11/16/16 at 14:17; Status DC Fentanyl Citrate (fentaNYL INJ) 100 mcg STK-MED ONCE .ROUTE Last administered on 11/16/16 15:10; Start 11/16/16 at 14:16; Stop 11/16/16 at 14:17; Status DC Verapamil HCl (Isoptin Inj) 5 mg STK-MED ONCE .ROUTE ; Start 11/16/16 at 14:48; Stop 11/16/16 at 14:49; Status DC Nitroglycerin 0 ml @ As Directed STK-MED ONCE .ROUTE ; Start 11/16/16 at 14:49; Stop 11/16/16 at 14:50; Status DC Heparin Sodium (Porcine) (Heparin Inj) 10,000 units STK-MED ONCE .ROUTE ; Start 11/16/16 at 14:49; Stop 11/16/16 at 14:50; Status DC Insulin Detemir (Levemir Inj) 10 units ONCE ONCE SQ ; Start 11/16/16 at 16:30; Stop 11/16/16 at 16:30; Status DC Miscellaneous Information 1 ONCE ONCE XX Last administered on 11/16/16 16:45 ; Start 11/16/16 at 16:45; Stop 11/16/16 at 16:46; Status DC Iohexol (OMNIPAQUE 350 INJ (Pot Sander)) 100 ml STK-MED ONCE OTHER ; Start at 15:00; Stop 11/17/16 at 09:55; Status DC Iohexol (OMNIPAQUE 350 INJ (Pot Sander)) 50 ml STK-MED ONCE OTHER ; Start at 15:00; Stop 11/17/16 at 09:55; Status DC A/P Assessment and Plan A/P 1. Alcohol withdrawal syndrome/alcohol dependence. resolved. 2. Acute Hypoxemic respiratory failure/right Lower lobe pneumonia/COPD exacerbation-resolved. 3. ACS/NSTEMI/ Probable CHF, ischemic Cardiomyopathy EF 25%, Ventricular tachycardia status post AICD Biventricular pacer,stopped IV Heparin, continue Sotalol, Lipitor , Imdur. s/p cardiac cath with : 1. Coronary artery disease with no intervenable lesions at this time. 2. History of coronary artery bypass graft x 3 per the patient (1/3 bypass grafts patent). 3. Mild pulmonary hypertension Type 2 due to elevated left-sided pressures. 4. Ischemic cardiomyopathy with an ejection fraction of 25%. cardiology following. 4. Cirrhosis- continue diuretics. 5. Hematuria after Zavala Trauma- resolved- will dc zavala cath- f/u urology as outpatient. PROPH: - Bilateral lower extremity SCDs. Discharge Planning dc home when cleared by cardiology. see med list. f/u; pcp and cardiology. d/w the patient and RN. time spent 31 min. Zora Eden MD Nov 18, 2016 08:04
[2016-11-18] MEDS ORDERED: THERTAB15 PO (08:06)
--- NOTE | 2016-11-18 08:07 | HHI.DCPOC ---
Discharge Care Plan Diagnosis: (1) COPD with exacerbation (2) CAD (coronary artery disease) Your Health Problems Are: Shortness of Breath Goals to Promote Your Health * To prevent worsening of your condition and complications * To maintain your health at the optimal level Directions to Meet Your Goals Take your medications as prescribed Follow your dietary instruction Follow activity as directed Keep your appointments as scheduled Take your immunizations and boosters as scheduled If your symptoms worsen call your PCP, if no PCP go to Urgent Care Center or Emergency Room Smoking is Dangerous to Your Health. Avoid second hand smoke Call the 24-hour hour crisis hotline for domestic abuse at Zora Eden MD Nov 18, 2016 08:07
[2016-11-18] MEDS: ATORVASTATIN 40 MG TAB PO SCH (09:43)
[2016-11-18] MEDS: ASPIRIN 81 MG CHEW TAB CHEW SCH (09:43)
[2016-11-18] MEDS: PANTOPRAZOLE SOD 40 MG DELAYED RELEASE TAB PO SCH (09:43)
[2016-11-18] MEDS: FUROSEMIDE 20 MG TAB PO SCH (09:43)
[2016-11-18] MEDS: MULTIVITAMIN TAB PO SCH (09:43)
[2016-11-18] MEDS: SACUBITRIL/VALSARTAN 24 MG-26 MG TAB PO SCH (09:44)
[2016-11-18] MEDS: CHOLECALCIFEROL (VIT D3) 1000 UNIT TAB PO SCH (09:44)
[2016-11-18] MEDS: THIAMINE HCL 100 MG TAB PO SCH (09:44)
[2016-11-18] MEDS: ISOSORBIDE MONONITRATE 30 MG TAB PO SCH (09:44)
[2016-11-18] MEDS: FOLIC ACID 1 MG TAB PO SCH (09:44)
--- NOTE | 2016-11-18 13:04 | HHI.DS ---
Discharge Summary Admission Date Nov 10, 2016 at 08:56 Discharge Date: Nov 18, 2016 Admitting Diagnosis CHF exacerbation, respiratory failure (1) Acute respiratory failure ICD Code: J96.00 - Acute respiratory failure, unspecified whether with hypoxia or hypercapnia Diagnosis: Principal Status: Acute (2) Severe sepsis ICD Code: A41.9 - Sepsis, unspecified organism; R65.20 - Severe sepsis without septic shock Diagnosis: Principal Status: Acute (3) HCAP (healthcare-associated pneumonia) ICD Code: J18.9 - Pneumonia, unspecified organism Diagnosis: Principal Status: Acute (4) COPD with exacerbation ICD Code: J44.1 - Chronic obstructive pulmonary disease with (acute) exacerbation Diagnosis: Principal Status: Acute (5) Hyponatremia ICD Code: E87.1 - Hyponatremia Diagnosis: Principal Status: Acute (6) CHF (congestive heart failure) ICD Code: I50.9 - Congestive heart failure Diagnosis: Secondary Status: Chronic (7) CAD (coronary artery disease) ICD Code: I25.10 - Atherosclerotic heart disease of [place] coronary artery without angina pectoris Diagnosis: Secondary Status: Chronic (8) COPD (chronic obstructive pulmonary disease) ICD Code: J44.9 - Chronic obstructive pulmonary disease, unspecified Diagnosis: Secondary Status: Chronic (9) Hyperlipidemia ICD Code: E78.5 - Hyperlipidemia Diagnosis: Secondary Status: Chronic (10) Non-sustained ventricular tachycardia ICD Code: I47.2 - Ventricular tachycardia Diagnosis: Secondary Status: Acute (11) EtOH dependence ICD Code: F10.20 - Alcohol dependence, uncomplicated Diagnosis: Secondary Status: Acute (12) History of CHF (congestive heart failure) ICD Code: Z86.79 - History of congestive heart failure Diagnosis: Secondary Status: Chronic (13) Diabetes mellitus, type 2 ICD Code: E11.9 - Type 2 diabetes mellitus without complications Diagnosis: Secondary Status: Acute (14) Ischemic cardiomyopathy ICD Code: I25.5 - Ischemic cardiomyopathy Diagnosis: Secondary Status: Chronic (15) Alcoholic cirrhosis ICD Code: K70.30 - Alcoholic cirrhosis of liver without ascites Diagnosis: Secondary Status: Chronic (16) Systolic heart failure, chronic ICD Code: I50.22 - Chronic systolic (congestive) heart failure Diagnosis: Secondary Status: Chronic Procedures cardiac cath. Brief History - From Admission Patient is a 66-year-old male with past medical history significant for coronary artery disease, ischemic cardiomyopathy, ventricular tachycardia, status post AICD, liver cirrhosis, continued alcohol use, COPD who presented to the emergency department with one-day duration of chest pain and shortness of breath. He woke up with shortness of breath and chest pain, took one sublingual nitroglycerin and called ambulance services. He was given 2 additional sublingual nitroglycerin, aspirin and 162 mg by mouth by EMS. He had oxygen saturation 89%, he was placed on nonrebreather mask and transported to [place] ED. He quit smoking about one year ago but continues to drink 2 beers daily. The patient was placed on BiPAP with some improvement in symptoms. Chest x-ray showed right lower lobe infiltrate concerning for healthcare associated pneumonia as he was recently admitted and discharged from hospital (10/20/16-10/23/16 for chest pain COPD and CHF). Patient received Rocephin and azithromycin in the ED. His lab work showed WBC 13.4 with left shift, sodium was 123 potassium 5.5, lactic acid was 4.9 and BNP was 1185. I evaluated the patient in the ICU. He is in moderate distress on BiPAP. Intermittent chest pain requiring nitroglycerin-we'll start on nitro drip. Initial troponin is negative. I have placed him on cefepime and Flagyl for healthcare associated pneumonia. Careful hydration with normal saline to correct hyponatremia. Patient will be continued on aspirin and sotalol, start IV heparin until ACS is ruled out. Consult cardiology Dr. Davenport his primary informatics manager. Also patient developed possible nonsustained V. tach in the ICU CBC/BMP: 11/17/16 0620 11/17/16 0620 Significant Findings Laboratory Tests Test 11/16/16 04:37 11/16/16 09:44 11/17/16 06:20 Red Blood Count 3.39 MIL/MM3 (4.50-5.90) 3.29 MIL/MM3 (4.50-5.90) Hemoglobin 10.5 GM/DL (13.0-17.0) 10.1 GM/DL (13.0-17.0) Hematocrit 32.9 % (39.0-51.0) 31.8 % (39.0-51.0) Mean Corpuscular Hemoglobin Concent 31.9 % (32.0-36.0) 31.8 % (32.0-36.0) Red Cell Distribution Width 18.4 % (11.6-17.2) 18.3 % (11.6-17.2) Platelet Count 111 TH/MM3 (150-450) 102 TH/MM3 (150-450) Neutrophils (%) (Auto) 74.7 % (16.0-70.0) 71.1 % (16.0-70.0) Monocytes (%) (Auto) 11.3 % (0.0-8.0) 13.3 % (0.0-8.0) Lymphocytes # (Auto) 0.9 TH/MM3 (1.0-4.8) 0.8 TH/MM3 (1.0-4.8) Blood Urea Nitrogen 23 MG/DL (7-18) Random Glucose 114 MG/DL (74-106) 125 MG/DL (74-106) Calcium Level 7.9 MG/DL (8.5-10.1) 8.4 MG/DL (8.5-10.1) Activated Partial Thromboplast Time 47.8 SEC (24.3-30.1) Monocytes # (Auto) 1.0 TH/MM3 (0-0.9) Imaging Last Impressions Chest X-Ray 11/13/16 0600 Signed Impressions: Service Date/Time: Sunday, November 13, 2016 03:36 - CONCLUSION: 1. Cardiomegaly with mild interstitial prominence suggesting some degree of vascular congestion/volume overload. 2. Linear atelectasis/scar in the left base. Ari Kam MD PE at Discharge GENERAL: This is a well-nourished, well-developed patient, in no apparent distress. CARDIOVASCULAR: Regular rate and regular rhythm without murmurs, gallops, or rubs. RESPIRATORY: Clear to auscultation. Breath sounds equal bilaterally. No wheezes , rales, or rhonchi. GASTROINTESTINAL: Abdomen soft, non-tender, nondistended. Normal, active bowel sounds MUSCULOSKELETAL: Extremities without clubbing, cyanosis, or edema. NEURO: Alert & Oriented x4 to person, place, time, situation. Moves all ext x4 Transfer Summary Patient is a 66-year-old male with past medical history significant for coronary artery disease, ischemic cardiomyopathy, ventricular tachycardia, status post AICD, liver cirrhosis, continued alcohol use, COPD who presented to the emergency department with one-day duration of chest pain and shortness of breath. He woke up with shortness of breath and chest pain, took one sublingual nitroglycerin and called ambulance services. He was given 2 additional sublingual nitroglycerin, aspirin and 162 mg by mouth by EMS. He had oxygen saturation 89%, he was placed on nonrebreather mask and transported to [place] ED. He quit smoking about one year ago but continues to drink 2 beers daily. The patient was placed on BiPAP with some improvement in symptoms. Chest x-ray showed right lower lobe infiltrate concerning for healthcare associated pneumonia as he was recently admitted and discharged from hospital (10/20/16-10/23/16 for chest pain COPD and CHF). Patient received Rocephin and azithromycin in the ED. His lab work showed WBC 13.4 with left shift, sodium was 123 potassium 5.5, lactic acid was 4.9 and BNP was 1185. I evaluated the patient in the ICU. He is in moderate distress on BiPAP. Intermittent chest pain requiring nitroglycerin-we'll start on nitro drip. Initial troponin is negative. I have placed him on cefepime and Flagyl for healthcare associated pneumonia. Careful hydration with normal saline to correct hyponatremia. Patient will be continued on aspirin and sotalol, start IV heparin until ACS is ruled out. Consult cardiology Dr. Davenport his primary informatics manager. Also patient developed possible nonsustained V. tach in the ICU 11/11/16: Complaints of intermittent chest pain. Na 126. Troponin 0.9. Will dc nitro gtt. Tremulous. Drinks 4-6 beers daily. Start CIWA protocol 11/12: Patient developed more pronounced withdrawal symptoms overnight. Currently on Precedex and getting when necessary benzodiazepines. Patient is lethargic intermittently agitated. Oriented to person only 11/13: Patient remains heavily sedated due to alcohol withdrawal. Denies chest pain. Received multiple doses of Ativan. I would wean to DC Precedex. Cardiac catheterization now postponed till Wednesday due to alcohol withdrawal 11/14 Off Precedex. Reportedly tugged on his Zavala and now has some hematuria. Zavala appears patent. Hemoglobin stable at 10.2. Platelets are normal at 173. On heparin drip. Cardiac catheterization tentatively Wednesday. Afebrile,. Hasn 't been out of bed. [facility] seen earlier. Still with some hematuria but slightly improved. Hemoglobin stable. Oriented and seems to have gotten through DT's, oriented x3. Denies CP or SOB. On RA. Was out of bed to chair today. Stood up some with assist. Hospital Course 1. Alcohol withdrawal syndrome/alcohol dependence. resolved. 2. Acute Hypoxemic respiratory failure/right Lower lobe pneumonia/COPD exacerbation-resolved. 3. ACS/NSTEMI/ Probable CHF, ischemic Cardiomyopathy EF 25%, Ventricular tachycardia status post AICD Biventricular pacer,stopped IV Heparin, continue Sotalol, Lipitor , Imdur. s/p cardiac cath with : 1. Coronary artery disease with no intervenable lesions at this time. 2. History of coronary artery bypass graft x 3 per the patient (1/3 bypass grafts patent). 3. Mild pulmonary hypertension Type 2 due to elevated left-sided pressures. 4. Ischemic cardiomyopathy with an ejection fraction of 25%. cardiology following. 4. Cirrhosis- continue diuretics. 5. Hematuria after Zavala Trauma- resolved- will dc zavala cath- f/u urology as outpatient. PROPH: - Bilateral lower extremity SCDs. Pt Condition on Discharge: Good Discharge Disposition: Discharge Home Discharge Time: > 30 minutes Discharge Instructions DIET: Follow Instructions for: Heart Healthy Diet, Diabetic Diet Activities you can perform: Regular-No Restrictions Follow up Referrals: Cardiology PCP Follow-up Urology New Medications: Multiple Vitamin (Thera/Beta-Carotene) 1 Tab Tab 1 TAB PO DAILY for vitamin for 30 Days, TAB 0 Refills Continued Medications: Albuterol 18 GM Inh (Ventolin Hfa 18 GM Inh) 90 Mcg/Act Aer 2 PUFF INH Q4H PRN for SHORTNESS OF BREATH, #1 INHALER 0 Refills Aspirin (Aspirin) 81 Mg Chew 81 MG CHEW DAILY, TAB 0 Refills Atorvastatin (Atorvastatin) 40 Mg Tab 40 MG PO DAILY for Cholesterol Management, #30 TAB 0 Refills Cholecalciferol (D3) 1,000 Unit Tab 1000 UNITS PO DAILY Dulaglutide Inj (Trulicity Inj) 0.75 Mg/0.5 Ml Pen 0.75 MG SQ Q7D ON TUESDAYS for Blood Sugar Management, #4 PEN 0 Refills Fluticasone Nasal [place] (Flonase Nasal [place]) 50 Mcg/Act [place] 2 SPRAY EACH NARE DAILY for Allergies, BOTTLE Furosemide (Furosemide) 20 Mg Tab 20 MG PO DAILY for CHF, #30 TAB 0 Refills Insulin Degludec Inj (Tresiba Flextouch Pen Inj) 300 unit/3 ML Pen 10 UNITS SQ DAILY for Blood Sugar Management, #15 ML 0 Refills Ipratropium-Albuterol Inh (Combivent Respimat Inh) 20-100 Retirement/Act Aero 2 PUFF INH BID for Asthma Management, INHALER Isosorbide Mononitrate ER (Isosorbide Mononitrate ER) 30 Mg Scotty 30 MG PO DAILY for Prevent Chest Pain, #30 TAB 0 Refills Ketotifen Opth Drops (ZyrTEC Itchy Eye Opth Drops) 0.025% Drops 1 DROP EACH EYE DAILY for ALLERGIES, BOTTLE 0 Refills Loperamide HCl (Hm Loperamide HCl) 2 Mg Cap 2 MG PO Q6H PRN for loose stools, #30 CAP Nitroglycerin SL (Nitroglycerin SL) 0.4 Mg Subl 0.4 MG SL DIRECTED for CHEST PAIN, TAB.SL ONE TABLET UNDER THE TONGUE NEEDED FOR CHEST PAIN, MAY REPEAT EVERY FIVE MINUTES FOR A TOTAL OF 3 DOSES OR CALL 911 IF NO RELIEF Sacubitril-Valsartan (Entresto) 24-26 Mg Tab 1 TAB PO BID for heart failure, #60 TAB 0 Refills Sotalol (Sotalol) 80 Mg Tab 80 MG PO BID for Regulate Heart Beat, #60 TAB 0 Refills Thiamine (B-1) 250 Mg Tab 250 MG PO DAILY for Nutritional Supplement, TAB 0 Refills Discontinued Medications: Prednisone (21) 10 mg tab Dose Pack (Prednisone (21) 10 mg tab Dose Pack) 10 Mg Pack 10 MG PO DIRECTED for Inflammation, #1 DSPK 0 Refills Zora Eden MD Nov 18, 2016 13:04
--- NOTE | 2016-11-18 17:30 | PD.CARD.PN ---
Subjective Subjective Remarks Patient seen earlier No complaints Doing well, blood pressure better Objective Medications Current Medications Sodium Chloride (NS Flush) 2 ml UNSCH PRN IVF FLUSH AFTER USING IV ACCESS Last administered on 11/11/16 20:15; Start 11/10/16 at 06:30; Stop 11/18/16 at 13:51 ; Status DC Albuterol/ Ipratropium (Duoneb Neb) 1 ampule Q15M INH Last administered on 11/10 06:36; Start 11/10/16 at 06:30; Stop 11/10/16 at 07:01; Status DC Furosemide (Lasix Inj) 60 mg ONCE ONCE IVP Last administered on 11/10/16 07: 03; Start 11/10/16 at 06:30; Stop 11/10/16 at 06:31; Status DC Nitroglycerin (Nitroglycerin 2% Oint) 1 inch ONCE ONCE TOPICAL Last administered on 11/10/16 06:44; Start 11/10/16 at 06:45; Stop 11/10/16 at 07:53 ; Status DC Ceftriaxone Sodium 2000 mg/ Sodium Chloride 100 ml @ 200 mls/hr ONCE ONCE IV Last administered on 11/10/16 07:34; Start 11/10/16 at 07:15; Stop 11/10/16 at 07:44; Status DC Azithromycin 500 mg/Sodium Chloride 250 ml @ 250 mls/hr ONCE ONCE IV Last administered on 11/10/16 08:10; Start 11/10/16 at 07:15; Stop 11/10/16 at 08:14 ; Status DC Methylprednisolone Sodium Succinate (SoluMEDROL INJ) 125 mg ONCE ONCE IV PUSH Last administered on 11/10/16 07:20; Start 11/10/16 at 07:15; Stop 11/10/16 at 07:16; Status DC Sodium Chloride 250 ml @ As Directed STK-MED ONCE .ROUTE Last administered on 11/10/16 07:46; Start 11/10/16 at 07:46; Stop 11/10/16 at 07:47; Status DC Nitroglycerin/ Dextrose 250 ml @ 0 mls/hr TITRATE IV Last administered on 11:56; Start 11/10/16 at 08:00; Stop 11/12/16 at 13:43; Status DC Cefepime HCl 2000 mg/Sodium Chloride 100 ml @ 200 mls/hr Q8H IV Last administered on 11/17/16 03:11; Start 11/10/16 at 10:00; Stop 11/17/16 at 09:42 ; Status DC Azithromycin 500 mg/Sodium Chloride 250 ml @ 250 mls/hr Q24H IV Last administered on 11/14/16 08:33; Start 11/11/16 at 09:00; Stop 11/14/16 at 10:02 ; Status DC Morphine Sulfate (Morphine Inj) 2 mg Q2H PRN IV PAIN SCALE 6 TO 10 Last administered on 11/17/16 04:24; Start 11/10/16 at 09:00; Stop 11/18/16 at 13:51 ; Status DC Albuterol/ Ipratropium (Duoneb Neb) 1 ampule Q6HR NEB NEB Last administered on 11/17/16 09:35; Start 11/10/16 at 10:00; Stop 11/17/16 at 11:33; Status DC Albuterol/ Ipratropium (Duoneb Neb) 1 ampule Q4HR NEB PRN INH SHORTNESS OF BREATH; Start 11/10/16 at 09:00; Stop 11/18/16 at 13:51; Status DC Chlorhexidine Gluconate (Peridex 0.12% Liq) 15 ml BID@08,20 MT Last administered on 11/15/16 20:00; Start 11/10/16 at 20:00; Stop 11/18/16 at 13:51 ; Status DC Pantoprazole Sodium (Protonix Inj) 40 mg DAILY IV Last administered on 08:33; Start 11/10/16 at 09:00; Stop 11/14/16 at 09:38; Status DC Enoxaparin Sodium (Lovenox Inj) 40 mg Q24H SQ Last administered on 11/10/16 10 :23; Start 11/10/16 at 10:00; Stop 11/10/16 at 14:40; Status DC Miscellaneous Information 1 [id number] Last administered on 11/10/16 09:00; Start 11/10/16 at 09:00; Stop 11/18/16 at 13:51; Status DC Chlorhexidine Gluconate (Chlorhexidine 2% Cloth) Taper DAILY@04 TOP Last administered on 11/15/16 04:00; Start 11/11/16 at 04:00; Stop 11/18/16 at 13:51 ; Status DC Chlorhexidine Gluconate (Chlorhexidine 2% Cloth) 3 pack UNSCH PRN TOP HYGIENIC CARE; Start 11/10/16 at 09:00; Stop 11/18/16 at 13:51; Status DC Aspirin (Aspirin Chew) 81 mg DAILY CHEW Last administered on 11/18/16 09:43; Start 11/10/16 at 09:00; Stop 11/18/16 at 13:51; Status DC Atorvastatin Calcium (Lipitor) 40 mg DAILY PO Last administered on 11/18/16 09 :43; Start 11/10/16 at 09:00; Stop 11/18/16 at 13:51; Status DC Cholecalciferol (Vitamin D3) 1,000 units DAILY PO Last administered on 09:44; Start 11/10/16 at 09:00; Stop 11/18/16 at 13:51; Status DC Furosemide (Lasix) 20 mg DAILY PO Last administered on 11/18/16 09:43; Start 11/11/16 at 09:00; Stop 11/18/16 at 13:51; Status DC Isosorbide Mononitrate (Imdur) 30 mg DAILY PO Last administered on 11/18/16 09 :44; Start 11/10/16 at 09:30; Stop 11/18/16 at 13:51; Status DC Nitroglycerin (Nitrostat Sl) 0.4 mg Q3H PRN SL chest pain Last administered on 11/17/16 04:12; Start 11/10/16 at 09:00; Stop 11/18/16 at 13:51; Status DC Sacubitril/ Valsartan (Entresto 24-26 Mg) 1 tab BID PO Last administered on 09:44; Start 11/10/16 at 09:00; Stop 11/18/16 at 13:51; Status DC Sotalol HCl (Betapace) 80 mg BID PO Last administered on 11/18/16 09:44; Start 11/10/16 at 09:00; Stop 11/18/16 at 13:51; Status DC Thiamine HCl (Vitamin B1) 250 mg DAILY PO Last administered on 11/18/16 09:44 ; Start 11/10/16 at 09:30; Stop 11/18/16 at 13:51; Status DC Insulin Aspart (NovoLOG SUPPLEMENTAL SCALE) 1 Q4HR SQ Last administered on 11/15 16:05; Start 11/10/16 at 12:00; Stop 11/15/16 at 17:09; Status DC Dextrose (D50w (Vial) Inj) 50 ml UNSCH PRN IV PUSH HYPOGLYCEMIA - SEE COMMENTS ; Start 11/10/16 at 09:45; Stop 11/16/16 at 16:25; Status DC Glucagon (Glucagon Inj) 1 mg UNSCH PRN OTHER HYPOGLYCEMIA-SEE COMMENTS; Start 11/10/16 at 09:45; Stop 11/16/16 at 16:25; Status DC Sodium Chloride 1,000 ml @ 50 mls/hr Q20H IV Last administered on 11/11/16 09 :12; Start 11/10/16 at 14:00; Stop 11/11/16 at 13:59; Status DC Methylprednisolone Sodium Succinate (SoluMEDROL INJ) 60 mg Q12H IV PUSH Last administered on 11/13/16 05:04; Start 11/10/16 at 18:00; Stop 11/13/16 at 11:35 ; Status DC Heparin Sodium/ Dextrose 250 ml @ 0 mls/hr TITRATE IV Last administered on 11/15 18:20; Start 11/10/16 at 13:30; Stop 11/16/16 at 16:45; Status DC Multivitamins 10 ml/Thiamine HCl 100 mg/Folic Acid 1 mg/Sodium Chloride 511.2 ml @ 125 mls/hr ONCE ONCE IV ; Start 11/10/16 at 16:00; Stop 11/10/16 at 16:00 ; Status DC Morphine Sulfate (Morphine Inj) 2 mg Q3H PRN IV PUSH pain 5-10; Start 11/10/16 at 13:45; Stop 11/10/16 at 14:40; Status DC Multivitamins 10 ml/Thiamine HCl 100 mg/Folic Acid 1 mg/Sodium Chloride 511.2 ml @ 125 mls/hr Q24H IV Last administered on 11/13/16 15:42; Start 11/10/16 at 16:00; Stop 11/14/16 at 10:10; Status DC Sodium Chloride 1,000 ml @ 50 mls/hr Q20H IV Last administered on 11/12/16 11 :41; Start 11/11/16 at 16:15; Stop 11/12/16 at 22:59; Status DC Flumazenil (Romazicon Inj) 0.2 mg Q1M PRN IV PUSH SEE LABEL COMMENTS; Start at 16:15; Stop 11/15/16 at 17:04; Status DC Lorazepam (Ativan) 1 mg Q4H PRN PO CIWA 8 - 10 Last administered on 11/11/16 17:45; Start 11/11/16 at 16:15; Stop 11/15/16 at 17:04; Status DC Lorazepam (Ativan Inj) 1 mg Q4H PRN IV PUSH CIWA 8 - 10 Last administered on 02:13; Start 11/11/16 at 16:15; Stop 11/15/16 at 17:04; Status DC Lorazepam (Ativan) 2 mg Q2H PRN PO CIWA 11-14; Start 11/11/16 at 16:15; Stop at 17:04; Status DC Lorazepam (Ativan Inj) 2 mg Q2H PRN IV PUSH CIWA 11-14 Last administered on 17:08; Start 11/11/16 at 16:15; Stop 11/15/16 at 17:04; Status DC Lorazepam (Ativan Inj) 2 mg Q1H PRN IV PUSH CIWA 15-20 Last administered on 02:14; Start 11/11/16 at 16:15; Stop 11/15/16 at 17:04; Status DC Lorazepam (Ativan Inj) 2 mg Q15M PRN IV PUSH CIWA > 20 Last administered on 21:15; Start 11/11/16 at 16:15; Stop 11/15/16 at 17:04; Status DC Dexmedetomidine HCl 200 mcg/ Sodium Chloride 52 ml @ 0 mls/hr TITRATE IV Last administered on 11/12/16 21:29; Start 11/11/16 at 22:15; Stop 11/12/16 at 23:00 ; Status DC Lorazepam (Ativan Inj) 2 mg Q1HR IV PUSH Last administered on 11/12/16 08:06; Start 11/11/16 at 23:00; Stop 11/12/16 at 07:00; Status DC Metoprolol Tartrate (Lopressor Inj) 5 mg ONCE ONCE IV PUSH ; Start 11/12/16 at 12:45; Stop 11/12/16 at 14:26; Status DC Nitroglycerin/ Dextrose 250 ml @ 0 mls/hr TITRATE IV ; Start 11/12/16 at 12:45; Stop 11/12/16 at 14:26; Status DC Dexmedetomidine HCl 1000 mcg/ Sodium Chloride 250 ml @ 0 mls/hr TITRATE IV Last administered on 11/13/16 05:03; Start 11/12/16 at 23:00; Stop 11/13/16 at 11:35; Status DC Methylprednisolone Sodium Succinate (SoluMEDROL INJ) 40 mg Q12H IV PUSH Last administered on 11/14/16 04:43; Start 11/13/16 at 18:00; Stop 11/14/16 at 09:54 ; Status DC Pantoprazole Sodium (Protonix) 40 mg DAILY PO Last administered on 11/18/16 09 :43; Start 11/15/16 at 09:00; Stop 11/18/16 at 13:51; Status DC Prednisone (Deltasone) 10 mg DAILY PO Last administered on 11/16/16 08:44; Start 11/15/16 at 09:00; Stop 11/17/16 at 08:59; Status DC Multivitamins (Theragran) 1 tab DAILY PO Last administered on 11/18/16 09:43; Start 11/15/16 at 09:00; Stop 11/18/16 at 13:51; Status DC Folic Acid (Folate) 1 mg DAILY PO Last administered on 11/18/16 09:44; Start 11/15/16 at 09:00; Stop 11/18/16 at 13:51; Status DC Tramadol HCl (Ultram) 50 mg Q6H PRN PO PAIN Last administered on 11/15/16 14: 35; Start 11/14/16 at 14:30; Stop 11/18/16 at 13:51; Status DC Dextrose (D50w (Vial) Inj) 50 ml UNSCH PRN IV HYPOGLYCEMIA-SEE COMMENTS; Start 11/15/16 at 17:15; Stop 11/18/16 at 13:51; Status DC Glucagon (Glucagon Inj) 1 mg UNSCH PRN OTHER HYPOGLYCEMIA-SEE COMMENTS; Start 11/15/16 at 17:15; Stop 11/18/16 at 13:51; Status DC Insulin Aspart (NovoLOG SUPPLEMENTAL SCALE) 1 ACHS SLIDING SCALE SQ Last administered on 11/17/16 20:58; Start 11/15/16 at 21:00; Stop 11/18/16 at 13:51 ; Status DC Heparin Sodium/ Sodium Chloride 1,000 ml @ As Directed STK-MED ONCE .ROUTE ; Start 11/16/16 at 14:15; Stop 11/16/16 at 14:16; Status DC Midazolam HCl (Versed Inj) 2 mg STK-MED ONCE .ROUTE Last administered on 15:09; Start 11/16/16 at 14:16; Stop 11/16/16 at 14:17; Status DC Fentanyl Citrate (fentaNYL INJ) 100 mcg STK-MED ONCE .ROUTE Last administered on 11/16/16 15:10; Start 11/16/16 at 14:16; Stop 11/16/16 at 14:17; Status DC Verapamil HCl (Isoptin Inj) 5 mg STK-MED ONCE .ROUTE ; Start 11/16/16 at 14:48; Stop 11/16/16 at 14:49; Status DC Nitroglycerin 0 ml @ As Directed STK-MED ONCE .ROUTE ; Start 11/16/16 at 14:49; Stop 11/16/16 at 14:50; Status DC Heparin Sodium (Porcine) (Heparin Inj) 10,000 units STK-MED ONCE .ROUTE ; Start 11/16/16 at 14:49; Stop 11/16/16 at 14:50; Status DC Insulin Detemir (Levemir Inj) 10 units ONCE ONCE SQ ; Start 11/16/16 at 16:30; Stop 11/16/16 at 16:30; Status DC Miscellaneous Information 1 ONCE ONCE XX Last administered on 11/16/16 16:45 ; Start 11/16/16 at 16:45; Stop 11/16/16 at 16:46; Status DC Iohexol (OMNIPAQUE 350 INJ (Inside Finisher)) 100 ml STK-MED ONCE OTHER ; Start at 15:00; Stop 11/17/16 at 09:55; Status DC Iohexol (OMNIPAQUE 350 INJ (Inside Finisher)) 50 ml STK-MED ONCE OTHER ; Start at 15:00; Stop 11/17/16 at 09:55; Status DC Vital Signs / I&O Vital Signs Date Time Temp Pulse Resp B/P (MAP) Pulse Ox O2 Delivery O2 Flow Rate FiO2 11/18/16 13:00 76 11/18/16 12:00 85 11/18/16 11:00 99.2 86 19 12/82 (59) 96 11/18/16 11:00 88 11/18/16 10:00 84 11/18/16 09:48 115/76 (89) 11/18/16 09:00 82 11/18/16 08:00 92 11/18/16 07:00 96 Room Air 11/18/16 07:00 99.3 91 19 132/83 (99) 96 11/18/16 07:00 78 11/18/16 05:01 79 11/18/16 04:09 81 11/18/16 03:39 98.6 79 20 128/73 (91) 96 11/18/16 03:00 97 Room Air 11/18/16 03:00 75 11/18/16 02:00 64 11/18/16 01:00 74 11/18/16 00:30 98.6 88 20 130/81 (97) 97 11/18/16 00:00 77 11/17/16 23:00 81 11/17/16 22:00 63 11/17/16 21:00 72 11/17/16 20:00 93 Room Air 11/17/16 20:00 95 11/17/16 19:46 98.9 75 20 100/64 (76) 93 11/17/16 19:00 75 11/17/16 18:00 84 I/O 11/17/16 11/17/16 11/17/16 11/18/16 11/18/16 11/18/16 06:59 14:59 22:59 06:59 14:59 22:59 Intake Total 340 ml 240 ml 480 ml Output Total 1150 ml 2400 ml 1775 ml 1500 ml Balance -810 ml -2400 ml -1535 ml -1020 ml Intake Oral 240 ml 240 ml 480 ml IV Total 100 ml Output Urine Total 1150 ml 2400 ml 1775 ml 1500 ml # Bowel Movements 1 1 Physical Exam GENERAL: NAD, AAOx3 SKIN: Warm and dry. HEAD: Atraumatic. Normocephalic. EYES: Pupils equal and round. No scleral icterus. No injection or drainage. ENT: No nasal bleeding or discharge. Mucous membranes pink and moist. NECK: Trachea midline. No JVD. CARDIOVASCULAR: Regular rate and rhythm. RESPIRATORY: No accessory muscle use. Decreased breath sounds bilaterally GASTROINTESTINAL: Abdomen soft, non-tender, nondistended. Hepatic and splenic margins not palpable. MUSCULOSKELETAL: Extremities without clubbing, cyanosis, or edema. No obvious deformities. Right femoral no hematoma/bruit, neurovascularly intact distally NEUROLOGICAL: Awake and alert. No obvious cranial nerve deficits. Motor grossly within normal limits. Five out of 5 muscle strength in the arms and legs. Normal speech. PSYCHIATRIC: Appropriate mood and affect; insight and judgment normal. Assessment and Plan Problem List: (1) CAD (coronary artery disease) ICD Codes: I25.10 - Atherosclerotic heart disease of [place] coronary artery without angina pectoris Status: Chronic (2) Hx of CABG ICD Codes: Z95.1 - Presence of aortocoronary bypass graft Status: Chronic (3) Acute hyponatremia ICD Codes: E87.1 - Hypo-osmolality and hyponatremia Status: Acute (4) COPD (chronic obstructive pulmonary disease) ICD Codes: J44.9 - Chronic obstructive pulmonary disease, unspecified Status: Chronic (5) Hyperlipidemia ICD Codes: E78.5 - Hyperlipidemia Status: Chronic (6) HCAP (healthcare-associated pneumonia) ICD Codes: J18.9 - Pneumonia, unspecified organism Status: Acute (7) Systolic heart failure, chronic ICD Codes: I50.22 - Chronic systolic (congestive) heart failure Status: Chronic (8) EtOH dependence ICD Codes: F10.20 - Alcohol dependence, uncomplicated Status: Acute (9) COPD with exacerbation ICD Codes: J44.1 - Chronic obstructive pulmonary disease with (acute) exacerbation Status: Acute (10) History of CHF (congestive heart failure) ICD Codes: Z86.79 - History of congestive heart failure Status: Chronic (11) Ischemic cardiomyopathy ICD Codes: I25.5 - Ischemic cardiomyopathy Status: Chronic (12) Diabetes mellitus, type 2 ICD Codes: E11.9 - Type 2 diabetes mellitus without complications Status: Acute (13) Alcoholic cirrhosis ICD Codes: K70.30 - Alcoholic cirrhosis of liver without ascites Status: Chronic (14) Hyponatremia ICD Codes: E87.1 - Hyponatremia Status: Acute (15) Non-sustained ventricular tachycardia ICD Codes: I47.2 - Ventricular tachycardia Status: Acute Assessment and Plan 1) NSTEMI Type 2 in nature, no lesions for intervention 2) Acute systolic heart failure Con't Lasix PO daily Entresto Needs to stop ETOH 3) No further wide complex tachycardia noted Previous appears to be atrial fibrillation 4) Con't ASA/Nitro/Statin/Entresto 5) Hematuria on heparin Cleared once off heparin drip Most likely traumatic Should be evaluated by urology probably outpatient for workup to make sure no underlying causes (i.e. malignancy) 6) Cardiovascularly stable for discharge Follow up with Dr. Davenport Problem Qualifiers (1) CAD (coronary artery disease): (2) EtOH dependence: (3) Diabetes mellitus, type 2: Hieu Jackson DO Nov 18, 2016 17:30
== END 2016-11-18 13:50 | disposition home or self-care (01) | DRG 871 ==
LOC: NEPC 06:14 → NEDA 08:56 → HIMN 11:00 → HCIN 11-15 22:13 → HCIS 11-17 06:30
PROVIDERS: ADMIT Internal Medicine; ATTEND Internal Medicine
PROC: 5A09357 Assistance with Respiratory Ventilation, Less than 24 Consecutive Hours, Continuous Positive Airway Pressure (ICD-10-PCS; 2016-11-10)
PROC: B2111ZZ Fluoroscopy of Multiple Coronary Arteries using Low Osmolar Contrast (ICD-10-PCS; 2016-11-16)
PROC: B3101ZZ Fluoroscopy of Thoracic Aorta using Low Osmolar Contrast (ICD-10-PCS; 2016-11-16)
PROC: B2131ZZ Fluoroscopy of Multiple Coronary Artery Bypass Grafts using Low Osmolar Contrast (ICD-10-PCS; 2016-11-16)
PROC: 4A023N8 Measurement of Cardiac Sampling and Pressure, Bilateral, Percutaneous Approach (ICD-10-PCS; principal; 2016-11-16 10:45)
DX: A41.9 Sepsis, unspecified organism (principal); J96.01 Acute respiratory failure with hypoxia; I21.4 Non-ST elevation (NSTEMI) myocardial infarction; I50.23 Acute on chronic systolic (congestive) heart failure; I47.2 Ventricular tachycardia; I11.0 Hypertensive heart disease with heart failure; J18.9 Pneumonia, unspecified organism; F10.231 Alcohol dependence with withdrawal delirium; E87.2 Acidosis; J44.1 Chronic obstructive pulmonary disease with (acute) exacerbation; E87.1 Hypo-osmolality and hyponatremia; J44.0 Chronic obstructive pulmonary disease with (acute) lower respiratory infection; I27.2 Other secondary pulmonary hypertension; I48.91 Unspecified atrial fibrillation; K70.30 Alcoholic cirrhosis of liver without ascites; R65.20 Severe sepsis without septic shock; I25.5 Ischemic cardiomyopathy; I25.10 Atherosclerotic heart disease of native coronary artery without angina pectoris; E87.5 Hyperkalemia; E11.42 Type 2 diabetes mellitus with diabetic polyneuropathy; E78.5 Hyperlipidemia, unspecified; I73.9 Peripheral vascular disease, unspecified; G62.9 Polyneuropathy, unspecified; R31.9 Hematuria, unspecified; Y95 Nosocomial condition; Y90.9 Presence of alcohol in blood, level not specified; Z79.52 Long term (current) use of systemic steroids; Z95.1 Presence of aortocoronary bypass graft; Z95.810 Presence of automatic (implantable) cardiac defibrillator; Z87.891 Personal history of nicotine dependence; Z86.79 Personal history of other diseases of the circulatory system
CPT/HCPCS: 36600; 51702; 71010; 80048; 80053; 81001; 82550; 82552; 82805; 82810; 82948; 83605; 83735; 83880; 84132; 84484; 85002; 85025; 85027; 85610; 85730; 87040; 87641; 93005; 93457; 93567; 94002; 94150; 94640; 94664; 96365; 96367; 96374; 96375; C1769; C1893; C9113; J0456; J0692; J0696; J1644; J1650; J1815; J1940; J2060; J2250; J2270; J2920; J2930; J3010; J3411; J7030; J7040; J7050; J7512; Q9967